=== PATIENT | male | born 1965 | race Two or more races ===

== ENCOUNTER 2024-10-24 17:46 | Inpatient (IN) | payer MEDICAID, SELFPAY ==
--- NOTE | 2024-10-24 15:04 | PC.SS ---
This SSD spoke with patient spouse Jen Barth via telephone, patient is FULL CODE WITH FULL TREATMENT. He is tenriism hoahaoism and will accept spiritual care visits from auricular therapist. Hearing is adequate with no device, vision is impaired wear glasses, he has partials that will stay home. This SSD to meet with Jen on Sunday.
[2024-10-24 17:39] LABS: Base Excess 10 (-3-3); HCO3 36 mEq/L (20-26); Inspired Oxygen, FIO2 28 %; O2 Saturation 55 % (91-98); PCO2 53 mmHg (32.0-48.0); pH, Arterial 7.44 (7.35-7.45)
[2024-10-24 17:41] LABS: Allen Test Performed/OK; Puncture Site Left Brachial
[2024-10-24 17:44] LABS: PO2 31 mmHg (83-108)
[2024-10-24 17:46] LABS: Basophils # (Auto) 0.1 Thou/mm3 (0.0-0.2); Basophils % (Auto) 1 % (0-2.5); Eosinophils # (Auto) 0.2 Thou/mm3 (0.0-0.5); Eosinophils % (Auto) 2 % (0-10); Hematocrit 35.5 % (41.0-53.0); Hemoglobin 11.7 g/dL (13.5-16.0); Immature Granulocytes Auto 0.02 Thou/mm3 (0.00-0.00); Lymphocytes # (Auto) 1.6 Thou/mm3 (1.0-4.8); Lymphocytes % (Auto) 21 % (10-50); Mean Corpuscular HGB Conc 33.0 g/dl (31.0-37.0); Mean Corpuscular Hemoglobin 29.7 pg (25.0-35.0); Mean Corpuscular Volume 90 fL (80-100); Monocytes # (Auto) 0.7 Thou/mm3 (0.0-0.8); Monocytes % (Auto) 9 % (0-12); Neutrophils # (Auto) 5.2 Thou/mm3 (1.8-7.7); Neutrophils % (Auto) 67 % (37-80); Nucleated Red Blood Cell # 0.00 Thou/mm3 (0.00-0.00); Nucleated Red Blood Cell % 0 /100 WBC (0); Platelet Count 389 Thou/mm3 (140-440); RDW Standard Deviation 45.1 fL (35.1-43.9); Red Blood Count 3.94 Miln/mm3 (4.50-5.90); White Blood Count 7.8 Thou/mm3 (3.8-10.6)
[2024-10-24 18:00] VITALS: BP 116/75; PULSE 80; RESP 28; TEMP 36.8; O2SAT 100
--- NOTE | 2024-10-24 18:00 | EKG_ITS ---
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
--- NOTE | 2024-10-24 18:00 | XR_ITS ---
Examination: AP chest single view Technique one AP portable semiupright chest single view Exam date and time: October 24, 2024 at 1759 hrs. Indications: Post tracheostomy placement Findings: Tracheostomy tube tip 6.6 cm above shannon Mild elevation left hemidiaphragm No aspiration pneumonia Moderate osteopenia Impression: Tracheostomy tube tip 6.6 cm above shannon
[2024-10-24 18:04] LABS: Albumin, Serum 3.8 gm/dL (3.4-4.8); Anion Gap 6 (7-16); BUN/Creatinine Ratio 20 Ratio (12-20); Blood Urea Nitrogen 14 mg/dL (9-23); Calcium 9.0 mg/dL (8.3-10.6); Calcium (Corrected) 9.2 mg/dL (8.5-10.1); Carbon Dioxide 33.1 mMol/L (20.0-31.0); Chloride 100 mMol/L (98-107); Creatinine (Component) 0.7 mg/dL (0.6-1.3); Glucose 132 mg/dL (74-106); Osmolality,Calculated 280 (275-295); Phosphorous 4.2 mg/dL (2.4-5.1); Potassium 3.9 mMol/L (3.4-5.1); Sodium 139 mMol/L (136-145); Thyroid Stimulating Hormone 0.65 uIU/mL (0.55-4.78); eGFR > 60 See Note
[2024-10-24 19:05] VITALS: PULSE 63; RESP 18; O2SAT 94
--- NOTE | 2024-10-24 19:55 | PC.ADMIT ---
Received resident from [facility] and admitted under Dr. Kita curtis. REsident arrived via gurney. Accompanied by ambulance crew. resident alert and oriented x2. able to follow simple commands. faroese is his first language. anable to make needs known. Complete assessment done . no skin issues noted skin bruising noted, discoloration to bilateral ankles. remains on blow by mist. saturation 98% stable vital signs. No distress noted upon arrival. resident denied pain or discomfort by nodding head. All new oirde
--- NOTE | 2024-10-24 19:59 | PC.ADMIT ---
Resident admitted to [facility] from [facility] arrived via gurney. alert and oriented x2. able to follow simple commands. presents weakness to left hemisphere. no major skin issues noted. other than bruises to arms and discoloration to bilateral ankles. placed on contact precautions according to report given by RN. carried out most of this pt order. hand off report given to Leticia BATEMAN.
[2024-10-24 20:15] VITALS: BP 117/66; PULSE 68; RESP 22; TEMP 36.6; O2SAT 97
--- NOTE | 2024-10-24 20:15 | PC.NURSE ---
RESIDENT ALERT, AWAKE, NO DISTRESS NOTED, DENIES PAIN. , SHEY AND SON, ABRAM AT THE BEDSIDE. NO QUESTIONS AT THIS TIME BY FAMILY.
--- NOTE | 2024-10-24 20:45 | PC.NURSE ---
DR. DAVALOS NOTIFIED OF LAB RESULTS. ORDERED TO REDRAW ABG IN THE MORNING(WAS A VENOUS DRAW PER MD). CBC, CMP REVIEWED WITH .
[2024-10-24] MEDS: SENNOSIDES 8.6 MG TABLET GT (21:00)
[2024-10-24 22:00] VITALS: BP 121/63; PULSE 60; RESP 17; TEMP 36.2
--- NOTE | 2024-10-24 22:30 | ESHP_ITS ---
Physical exam Physical Exam Vital signs: Temp Pulse Resp BP Pulse Ox O2 Del Method O2 Flow Rate 98.4 F 77 20 129/71 95 Blow-by 6 10/26/24 06:00 10/26/24 06:00 10/26/24 06:00 10/26/24 06:00 10/26/24 06:00 10/25/24 06:00 10/26/24 01:25 FiO2 28 10/26/24 01:25 Constitutional Constitutional: no acute distress and thin Comments: Pt bed bound with VSS and awake HEENT Exam Head: Present normocephalic and atraumatic ENT: Present mucous membranes moist, oropharynx clear, nares patent and external ear normal Neck Exam Comments: NAD Chest/Breast/Axilla Exam Comments: NAD Respiratory Exam Respiratory: Present chest non-tender, lungs clear, normal breath sounds and no resp distress Comments: Tracheostomy present and site clean Cardiovascular Exam Cardiovascular: Present RRR, S1 and S2 Abdominal Exam Abdominal: Present soft and normoactive bowel sounds Rectal Exam Comments: deferred Exam Comments: deferred Extremities Exam Extremities: Present pulses intact and normal capillary refill Comments: moves all extremities minimally, more his hands, Back/Spine/Pelvis Exam Comments: NAD Neurological Exam Neurological: Present alert Comments: bed bound with gen. weakness more pronounced in lower extremities L>R. Awake and alert and seems to recognize persons but not aware of place or time. Responds to simple commands with yes or no and appropreately. Incontinent of B & B Rehabilitation potential Diagnosis (1) Acute arterial ischemic stroke, vertebrobasilar, brainstem: Status: Chronic Qualifiers: Laterality: left Qualified Code(s): I63.212 - Cerebral infarction due to unspecified occlusion or stenosis of left vertebral artery; I63.22 - Cerebral infarction due to unspecified occlusion or stenosis of basilar artery (2) Seizures, generalized convulsive: Status: Chronic (3) Chronic respiratory failure: Status: Chronic Qualifiers: Respiratory failure complication: unspecified whether with hypoxia or hypercapnia Qualified Code(s): J96.10 - Chronic respiratory failure, unspecified whether with hypoxia or hypercapnia (4) Altered glucose metabolism due to diabetes: Status: Chronic (5) Encephalopathy: Status: Chronic (6) Decubital ulcer: Status: Chronic Assessment & Plan: healed in acute care and now on admission to sub/acute has blanchable redness over saccrum and monitored (7) G tube feedings: Status: Chronic (8) Tracheostomy in place: Status: Chronic Assessment & Plan Assessment: Pt seems to be fairly stable with all above diagnosis and with limited /guarded prognosis for recovery to independent living and needs all support. Family supportive Plan: Full support medical/nutritional and emotional towards maintaining some quality of life Prognosis Prognosis: guarded If patient not informed of condion, describe why: pt is not cognitively aware enough his condition, his limitations and the care involved Goals Dc home if pt improves some and stable and family in a position to provide care HPI History of Present Illness HPI: Pt a 59 yrs of age male admitted to DPS[facility] at [facility] for penitentiary care with diagnosis of : Acute arterial ischemic stroke, vertebrobasilar, brainstem, left ; with a Tracheostomy to blow by because of Chronic respiratory failure; Feeding G tube for dyspahagia and risk for aspiration; Decubitus over coccyx; Seizures generalzex; DM-II; Encephalopathy metabolic , improving; Left femoral vein DVT/ multiple subsegmental pulmonary emboli; hypothyroidism.
[2024-10-25] VITALS (10 sets, daily range): BP systolic 124–144; BP diastolic 70–78; PULSE 66–97; RESP 18–23; TEMP 36.4–38.3; O2SAT 93–99
[2024-10-25] MEDS: INSULIN REGULAR, HUMAN 100 UNIT/ML VIAL SC ×4 (00:08→17:42)
[2024-10-25] MEDS: IPRATROPIUM/ALBUTEROL 3 ML AMPUL.NEB INH ×2 (01:03→19:11)
[2024-10-25 07:02] LABS: Glucose,Fasting 147 mg/dL (74-106)
[2024-10-25 08:34] LABS: Base Excess 9 (-3-3); HCO3 34 mEq/L (20-26); Inspired Oxygen, FIO2 35 %; PCO2 50 mmHg (32.0-48.0); PO2 102 mmHg (83-108); pH, Arterial 7.45 (7.35-7.45)
[2024-10-25 08:36] LABS: O2 Saturation 97 % (91-98); Puncture Site Right Brachial
[2024-10-25 08:37] LABS: Allen Test Not Performed
[2024-10-25] MEDS: APIXABAN 5 MG TABLET PO ×2 (09:04→20:52)
[2024-10-25] MEDS: SENNOSIDES 8.6 MG TABLET GT ×2 (09:05→20:54)
[2024-10-25] MEDS: CHOLECALCIFEROL (VITAMIN D3) 25 MCG TABLET GT (09:05)
[2024-10-25] MEDS: ATORVASTATIN 40 MG TABLET GT (20:54)
--- NOTE | 2024-10-25 21:09 | PC.NURSE ---
Per day shift charge nurse resident had a rectal temp. of 100.2 F rectally, resident was cover up and fan was off at time, cooling measures performed, resident temp. rechecked 100.1F rectally, all vs taken, VS 138/78,101,24, 02sat 100% on 6L 28%, resident noted to be restless when family was not in room, resident also noted to be pulling at tubing, consent obtained by resident for bilateral mittens for pulling at life sustaining tubes, currently family is in to visit, made aware of fever, per 100.1F is not a true fever, new orders for one time tyl. for fever of 100.1F and if resident continues with fever tonight to collect CBC in morning, made aware of new orders, current sputum cultures pending.
[2024-10-25] MEDS: ACETAMINOPHEN 325 MG/10.15 ML 650 MG GT (21:11)
[2024-10-26] VITALS (8 sets, daily range): BP systolic 128–158; BP diastolic 63–78; PULSE 70–98; RESP 18–20; TEMP 36.9–37.1; O2SAT 95–99
[2024-10-26] MEDS: INSULIN REGULAR, HUMAN 100 UNIT/ML VIAL SC ×4 (00:15→17:34)
[2024-10-26] MEDS: IPRATROPIUM/ALBUTEROL 3 ML AMPUL.NEB INH ×4 (01:25→20:37)
[2024-10-26] MEDS: LEVOTHYROXINE 200 MCG TABLET GT (05:05)
[2024-10-26] MEDS: AMIODARONE 200 MG TABLET 400 MG GT (09:10)
[2024-10-26] MEDS: CLOPIDOGREL BISULFATE 75 MG TABLET GT (09:11)
[2024-10-26] MEDS: SENNOSIDES 8.6 MG TABLET GT ×2 (09:11→20:39)
[2024-10-26] MEDS: APIXABAN 5 MG TABLET PO ×2 (09:11→20:38)
[2024-10-26] MEDS: DEX/HYPRO/GLY ARTIFICAL TEARS 225 DROP/15 ML BTL BOTH EYES ×2 (09:11→20:39)
[2024-10-26] MEDS: CHOLECALCIFEROL (VITAMIN D3) 25 MCG TABLET GT (09:11)
--- NOTE | 2024-10-26 15:32 | PC.NURSE ---
late entry for 10/25/24- F/U ABG was drawn. RT had notified Dr East about the results, no new order made
[2024-10-26] MEDS: ATORVASTATIN 40 MG TABLET GT (20:39)
[2024-10-27] VITALS (9 sets, daily range): BP systolic 107–120; BP diastolic 63–79; PULSE 61–79; RESP 17–24; TEMP 36.2–36.8; O2SAT 93–99; BMI 26.4
[2024-10-27] MEDS: IPRATROPIUM/ALBUTEROL 3 ML AMPUL.NEB INH ×4 (00:03→18:49)
[2024-10-27] MEDS: INSULIN REGULAR, HUMAN 100 UNIT/ML VIAL SC ×2 (00:08→11:25)
[2024-10-27] MEDS: LEVOTHYROXINE 200 MCG TABLET GT (05:25)
[2024-10-27] MEDS: AMIODARONE 200 MG TABLET 400 MG GT (09:17)
[2024-10-27] MEDS: CHOLECALCIFEROL (VITAMIN D3) 25 MCG TABLET GT (09:19)
[2024-10-27] MEDS: DEX/HYPRO/GLY ARTIFICAL TEARS 225 DROP/15 ML BTL BOTH EYES ×2 (09:19→20:30)
[2024-10-27] MEDS: CLOPIDOGREL BISULFATE 75 MG TABLET GT (09:19)
[2024-10-27] MEDS: SENNOSIDES 8.6 MG TABLET GT ×2 (09:20→20:32)
[2024-10-27] MEDS: APIXABAN 5 MG TABLET PO (09:35)
--- NOTE | 2024-10-27 12:15 | PD.SAPROG ---
Progress Note - SubAcute DIAGNOSIS (1) Acute arterial ischemic stroke, vertebrobasilar, brainstem: Status: Chronic Qualifiers: Laterality: left Qualified Code(s): I63.212 - Cerebral infarction due to unspecified occlusion or stenosis of left vertebral artery; I63.22 - Cerebral infarction due to unspecified occlusion or stenosis of basilar artery (2) Seizures, generalized convulsive: Status: Chronic (3) Chronic respiratory failure: Status: Chronic Qualifiers: Respiratory failure complication: unspecified whether with hypoxia or hypercapnia Qualified Code(s): J96.10 - Chronic respiratory failure, unspecified whether with hypoxia or hypercapnia (4) Altered glucose metabolism due to diabetes: Status: Chronic (5) Encephalopathy: Status: Chronic (6) Decubital ulcer: Status: Chronic (7) G tube feedings: Status: Chronic (8) Tracheostomy in place: Status: Chronic OBJECTIVE Most recent vital signs: Last Vital Signs Temp 98 F 10/31/24 11:42 Pulse 65 10/31/24 12:10 Resp 18 10/31/24 12:10 BP 120/69 10/31/24 11:42 Pulse Ox 98 10/31/24 12:10 O2 Del Method Blow-by 10/30/24 17:51 O2 Flow Rate 6 10/31/24 12:10 FiO2 28 10/31/24 12:10 Speech:: mouths words (sometimes) Answers questions:: sometimes (mostly by gestures) Respiratory:: lungs clear Cardiovascular: RRR Abdomen: soft Tracheostomy:: to blow by Feeding per:: G tube ASSESSMENT & PLAN Assessment: Pt seems to be fairly stable with all above diagnosis and with limited /guarded prognosis for recovery to independent living and needs all support. Family supportive Plan: Full support medical/nutritional and emotional towards maintaining some quality of life
--- NOTE | 2024-10-27 17:33 | PC.NURSE ---
Reviewed sputum final culture with . stated after reviewing results is colonized. resident has no signs of elevated temperature. all VS are stable. Will continue to monitor.
[2024-10-27] MEDS: ATORVASTATIN 40 MG TABLET GT (20:30)
[2024-10-28] VITALS (9 sets, daily range): BP systolic 104–141; BP diastolic 55–77; PULSE 55–79; RESP 17–20; TEMP 36.2–36.6; O2SAT 96–100
[2024-10-28] MEDS: IPRATROPIUM/ALBUTEROL 3 ML AMPUL.NEB INH ×4 (00:19→19:41)
[2024-10-28] MEDS: LEVOTHYROXINE 200 MCG TABLET GT (05:20)
[2024-10-28] MEDS: INSULIN REGULAR, HUMAN 100 UNIT/ML VIAL SC ×2 (05:37→11:37)
[2024-10-28] MEDS: CLOPIDOGREL BISULFATE 75 MG TABLET GT (08:37)
[2024-10-28] MEDS: CHOLECALCIFEROL (VITAMIN D3) 25 MCG TABLET GT (08:37)
[2024-10-28] MEDS: APIXABAN 5 MG TABLET PO ×2 (08:37→20:35)
[2024-10-28] MEDS: SENNOSIDES 8.6 MG TABLET GT ×2 (08:37→20:36)
[2024-10-28] MEDS: DEX/HYPRO/GLY ARTIFICAL TEARS 225 DROP/15 ML BTL BOTH EYES ×2 (08:37→20:35)
--- NOTE | 2024-10-28 12:52 | PC.SS ---
This SSD met with resident RP and son, resident is all smiles and appears to be in good spirits in the company of his family. Resident is seen engaging with his son. Resident appears to be adjusting well, mood has been adequate, states resident has history of anxiety due to family problems. This SSD will make daily contact with resident and will monitor for changes in mood and behavior.
[2024-10-28] MEDS: ATORVASTATIN 40 MG TABLET GT (20:35)
[2024-10-29] VITALS (7 sets, daily range): BP systolic 126–132; BP diastolic 62–77; PULSE 66–85; RESP 18–20; TEMP 37–37.2; O2SAT 20–99
[2024-10-29] MEDS: IPRATROPIUM/ALBUTEROL 3 ML AMPUL.NEB INH ×4 (00:59→18:00)
[2024-10-29] MEDS: INSULIN REGULAR, HUMAN 100 UNIT/ML VIAL SC ×2 (05:23→11:19)
[2024-10-29] MEDS: LEVOTHYROXINE 200 MCG TABLET GT (05:26)
[2024-10-29] MEDS: AMIODARONE 200 MG TABLET 400 MG GT (08:48)
[2024-10-29] MEDS: APIXABAN 5 MG TABLET PO ×2 (08:49→20:47)
[2024-10-29] MEDS: CHOLECALCIFEROL (VITAMIN D3) 25 MCG TABLET GT (08:49)
[2024-10-29] MEDS: DEX/HYPRO/GLY ARTIFICAL TEARS 225 DROP/15 ML BTL BOTH EYES ×2 (08:50→20:47)
[2024-10-29] MEDS: SENNOSIDES 8.6 MG TABLET GT ×2 (08:50→20:48)
[2024-10-29] MEDS: CLOPIDOGREL BISULFATE 75 MG TABLET GT (08:50)
--- NOTE | 2024-10-29 12:58 | PC.SS ---
Resident is yarsanism catholic, family will accept spiritual care visits from fruit ii farmworker. This SSD to inform fruit ii farmworker.
[2024-10-29] MEDS: ATORVASTATIN 40 MG TABLET GT (20:47)
[2024-10-30] VITALS (9 sets, daily range): BP systolic 107–130; BP diastolic 62–73; PULSE 60–84; RESP 18; TEMP 36.4–36.6; O2SAT 94–100
[2024-10-30] MEDS: IPRATROPIUM/ALBUTEROL 3 ML AMPUL.NEB INH ×4 (00:05→19:00)
[2024-10-30] MEDS: INSULIN REGULAR, HUMAN 100 UNIT/ML VIAL SC ×3 (05:22→17:09)
[2024-10-30] MEDS: LEVOTHYROXINE 200 MCG TABLET GT (05:27)
[2024-10-30 06:44] LABS: Levetiracetam (Keppra)* 20.0 mcg/mL (6.0-46.0)
[2024-10-30] MEDS: AMIODARONE 200 MG TABLET 400 MG GT (08:52)
[2024-10-30] MEDS: APIXABAN 5 MG TABLET PO ×2 (08:53→21:14)
[2024-10-30] MEDS: DEX/HYPRO/GLY ARTIFICAL TEARS 225 DROP/15 ML BTL BOTH EYES ×2 (08:54→21:15)
[2024-10-30] MEDS: CLOPIDOGREL BISULFATE 75 MG TABLET GT (08:54)
[2024-10-30] MEDS: SENNOSIDES 8.6 MG TABLET GT ×2 (08:54→21:15)
[2024-10-30] MEDS: CHOLECALCIFEROL (VITAMIN D3) 25 MCG TABLET GT (08:54)
[2024-10-30] MEDS: ATORVASTATIN 40 MG TABLET GT (21:15)
[2024-10-31] VITALS (9 sets, daily range): BP systolic 114–121; BP diastolic 63–71; PULSE 53–85; RESP 16–20; TEMP 36.3–36.6; O2SAT 95–99; BMI 208838.7; BMI 12.0
[2024-10-31] MEDS: IPRATROPIUM/ALBUTEROL 3 ML AMPUL.NEB INH ×4 (00:05→18:20)
--- NOTE | 2024-10-31 05:48 | PC.NURSE ---
At 1845 am nurse reported that resident had not voided since 1100. Upon evaluation of resident, resident noted with abdomen distended and tender to touch upon palpitation. Charge nurse notified and new order received to perform and in and out cath. In and out cath done with immediate return of clear yellow urine 760 cc. Resident tolerated procedure well, when asked if he felt relief, resident nodded yes.
[2024-10-31] MEDS: LEVOTHYROXINE 200 MCG TABLET GT (06:16)
[2024-10-31] MEDS: INSULIN REGULAR, HUMAN 100 UNIT/ML VIAL SC ×2 (06:16→11:34)
[2024-10-31] MEDS: SENNOSIDES 8.6 MG TABLET GT ×2 (08:34→21:07)
[2024-10-31] MEDS: AMIODARONE 200 MG TABLET 400 MG GT (08:34)
[2024-10-31] MEDS: CHOLECALCIFEROL (VITAMIN D3) 25 MCG TABLET GT (08:34)
[2024-10-31] MEDS: DEX/HYPRO/GLY ARTIFICAL TEARS 225 DROP/15 ML BTL BOTH EYES ×2 (08:34→21:07)
[2024-10-31] MEDS: APIXABAN 5 MG TABLET PO ×2 (08:34→21:06)
[2024-10-31] MEDS: CLOPIDOGREL BISULFATE 75 MG TABLET GT (08:34)
--- NOTE | 2024-10-31 13:52 | PC.PT ---
PT eval completed. Patient will be seen for Physical therapy 1x/wk and RNA program for strengthening ex. Pls see PT eval.
--- NOTE | 2024-10-31 15:32 | PC.NURSE ---
Resident on multiple blood thinners Eliquis and Plavix. Called Dr Banerjee and made aware of the consult
--- NOTE | 2024-10-31 17:15 | PC.NURSE ---
Seen by Dr East,no new orders made.
--- NOTE | 2024-10-31 17:50 | PD.SAPROG ---
Progress Note - SubAcute DIAGNOSIS (1) Acute arterial ischemic stroke, vertebrobasilar, brainstem: Status: Chronic Qualifiers: Laterality: left Qualified Code(s): I63.212 - Cerebral infarction due to unspecified occlusion or stenosis of left vertebral artery; I63.22 - Cerebral infarction due to unspecified occlusion or stenosis of basilar artery (2) Seizures, generalized convulsive: Status: Chronic (3) Chronic respiratory failure: Status: Chronic Qualifiers: Respiratory failure complication: unspecified whether with hypoxia or hypercapnia Qualified Code(s): J96.10 - Chronic respiratory failure, unspecified whether with hypoxia or hypercapnia (4) Altered glucose metabolism due to diabetes: Status: Chronic (5) Encephalopathy: Status: Chronic (6) Decubital ulcer: Status: Chronic (7) G tube feedings: Status: Chronic (8) Tracheostomy in place: Status: Chronic SUBJECTIVE Fever:: none Shortness of Breath:: none Pain:: none OBJECTIVE Most recent vital signs: Last Vital Signs Temp 98 F 10/31/24 11:42 Pulse 65 10/31/24 12:10 Resp 18 10/31/24 12:10 BP 120/69 10/31/24 11:42 Pulse Ox 98 10/31/24 12:10 O2 Del Method Blow-by 10/30/24 17:51 O2 Flow Rate 6 10/31/24 12:10 FiO2 28 10/31/24 12:10 Speech:: mouths words (sometimes) Answers questions:: sometimes (mostly by gestures) Respiratory:: lungs clear Cardiovascular: RRR Abdomen: soft Tracheostomy:: to blow by Feeding per:: G tube ASSESSMENT & PLAN Assessment: Pt seems to be fairly stable with all above diagnosis and with limited /guarded prognosis for recovery to independent living and needs all support. Family supportive Plan: Full support medical/nutritional and emotional towards maintaining some quality of life
[2024-10-31] MEDS: MAGNESIUM HYDROXIDE 30 ML ORAL SUSP ML GT (21:07)
[2024-10-31] MEDS: ATORVASTATIN 40 MG TABLET GT (21:07)
[2024-11-01] VITALS (7 sets, daily range): BP systolic 114–148; BP diastolic 64–72; PULSE 67–93; RESP 18–20; TEMP 36.3–36.8; O2SAT 95–99
[2024-11-01] MEDS: IPRATROPIUM/ALBUTEROL 3 ML AMPUL.NEB INH ×4 (00:05→18:10)
[2024-11-01] MEDS: LEVOTHYROXINE 200 MCG TABLET GT (05:02)
[2024-11-01] MEDS: ACETAMINOPHEN 325 MG/10.15 ML 650 MG GT (05:05)
[2024-11-01] MEDS: CLOPIDOGREL BISULFATE 75 MG TABLET GT (08:41)
[2024-11-01] MEDS: APIXABAN 5 MG TABLET PO (08:41)
[2024-11-01] MEDS: CHOLECALCIFEROL (VITAMIN D3) 25 MCG TABLET GT (08:41)
[2024-11-01] MEDS: DEX/HYPRO/GLY ARTIFICAL TEARS 225 DROP/15 ML BTL BOTH EYES ×2 (08:41→20:55)
[2024-11-01] MEDS: AMIODARONE 200 MG TABLET 400 MG GT (08:41)
[2024-11-01] MEDS: SENNOSIDES 8.6 MG TABLET GT ×2 (08:42→20:55)
[2024-11-01] MEDS: INSULIN REGULAR, HUMAN 100 UNIT/ML VIAL SC (12:06)
[2024-11-01] MEDS: APIXABAN 5 MG TABLET GT (20:53)
[2024-11-01] MEDS: ATORVASTATIN 40 MG TABLET GT (20:55)
[2024-11-02] VITALS (7 sets, daily range): BP systolic 110–123; BP diastolic 50–73; PULSE 61–86; RESP 18–20; TEMP 36.6–36.8; O2SAT 96–99
[2024-11-02] MEDS: IPRATROPIUM/ALBUTEROL 3 ML AMPUL.NEB INH ×4 (00:05→17:40)
[2024-11-02] MEDS: LEVOTHYROXINE 200 MCG TABLET GT (05:22)
--- NOTE | 2024-11-02 06:47 | PC.NURSE ---
Resident noted with no void since 2300. Bladder scan done with 503mls noted. Charge nurse notified with order obtained for an in and out cath. In and out cath performed requiring cath to be advanced further into bladder to get urine return. Urine noted to trickle out, however upon palpation of bladder urine was noted to flow consistently with 500mls of cloudy yellow urine obtained. Charge nurse notified.
[2024-11-02] MEDS: CHOLECALCIFEROL (VITAMIN D3) 25 MCG TABLET GT (08:17)
[2024-11-02] MEDS: CLOPIDOGREL BISULFATE 75 MG TABLET GT (08:17)
[2024-11-02] MEDS: AMIODARONE 200 MG TABLET 400 MG GT (08:17)
[2024-11-02] MEDS: APIXABAN 5 MG TABLET GT ×2 (08:17→20:38)
[2024-11-02] MEDS: SENNOSIDES 8.6 MG TABLET GT ×2 (08:18→20:39)
[2024-11-02] MEDS: DEX/HYPRO/GLY ARTIFICAL TEARS 225 DROP/15 ML BTL BOTH EYES ×2 (08:18→20:38)
[2024-11-02] MEDS: INSULIN REGULAR, HUMAN 100 UNIT/ML VIAL SC ×2 (11:45→17:32)
--- NOTE | 2024-11-02 16:28 | PC.NURSE ---
Resident had not been able to void since 1400. Charge nurse informed, bladder scan preformed and noted to have 1,160 mls. Orders given for indwelling catheterization. No. 16 Croatian with 10ml lyon placed and immediate flow of clear yellow urine flowing well without any issues. Nurse observed patient during procedure and noticed patient grimacing offered PRN but resident refused. at bedside to provide emotional support.
--- NOTE | 2024-11-02 16:46 | PC.NURSE ---
Communicable Disease Specialist was informed by nurse Aleman at around 1500. regarding resident not being able to void since this am at 0630. Nurse Aleman bladder scan resident noting > 500 ml if urine in the bladder. Called doctor and per protocol this is the 3rd time (in 48hours) resident gets scanned and IN and OUT catherization x2. Third time a lyon catheter was inserted as per MD order due to urinary retention. Obtained 800ml yellow clear urine then clamp lyon. Will continue to monitor resident. According to AUTO SEAT COVER INSTALLER report resident showed some discomfort during procedure. No complications were noted thereafter.
[2024-11-02] MEDS: ATORVASTATIN 40 MG TABLET GT (20:38)
--- NOTE | 2024-11-02 23:07 | PD.NEUROCONS ---
History of Present Illness Data of Consult Requesting Physician: Rosalino East MD Primary Care Provider: Physician No Primary/Family Consult Narrative cc:: cc: Rosalino East MD Meds Home Medications and Allergies Allergies Allergy/AdvReac Type Severity Reaction Status Date / Time No Known Allergies Allergy Verified 10/24/24 19:31 Exam - Neurology Vital Signs Temp Pulse Resp BP Pulse Ox O2 Del Method O2 Flow Rate 98.2 F 75 18 113/50 L 98 Blow-by 6 11/02/24 16:45 11/02/24 16:45 11/02/24 16:45 11/02/24 16:45 11/02/24 16:45 11/02/24 16:45 11/02/24 16:45 FiO2 28 11/02/24 16:45 Results Labs 10/24/24 17:38 10/24/24 17:38 ABG Interpretation ABG results: 10/24/24 10/25/24 17:31 08:26 ABG pH 7.44 7.45 ABG pCO2 53 H 50 H ABG pO2 31 L* 102 D ABG HCO3 36 H 34 H ABG O2 Saturation 55 L 97 ABG Base Excess 10 H 9 H Assessment & Plan Assessment and plan (1) Acute arterial ischemic stroke, vertebrobasilar, brainstem: Qualifiers: Laterality: left Qualified Code(s): I63.212 - Cerebral infarction due to unspecified occlusion or stenosis of left vertebral artery; I63.22 - Cerebral infarction due to unspecified occlusion or stenosis of basilar artery Status: Chronic Assessment and plan: Continue with range of motion exercises for the left hemibody Continue with the G-tube feeding as he has functional dysphagia Follow-up with the CT and then decide about continuation of anticoagulant and Plavix (2) Seizures, generalized convulsive: Status: Chronic Assessment and plan: Continue with Keppra (3) Chronic respiratory failure: Qualifiers: Respiratory failure complication: unspecified whether with hypoxia or hypercapnia Qualified Code(s): J96.10 - Chronic respiratory failure, unspecified whether with hypoxia or hypercapnia Status: Chronic Assessment and plan: Status post tracheostomy, stable
[2024-11-03] VITALS (10 sets, daily range): BP systolic 120–135; BP diastolic 63–72; PULSE 68–87; RESP 17–22; TEMP 36.6–36.7; O2SAT 96–98
[2024-11-03] MEDS: IPRATROPIUM/ALBUTEROL 3 ML AMPUL.NEB INH ×5 (00:46→23:35)
[2024-11-03] MEDS: LEVOTHYROXINE 200 MCG TABLET GT (05:38)
[2024-11-03] MEDS: INSULIN REGULAR, HUMAN 100 UNIT/ML VIAL SC ×3 (05:39→17:15)
[2024-11-03] MEDS: AMIODARONE 200 MG TABLET 400 MG GT (09:09)
[2024-11-03] MEDS: DEX/HYPRO/GLY ARTIFICAL TEARS 225 DROP/15 ML BTL BOTH EYES ×2 (09:10→21:14)
[2024-11-03] MEDS: CHOLECALCIFEROL (VITAMIN D3) 25 MCG TABLET GT (09:10)
[2024-11-03] MEDS: APIXABAN 5 MG TABLET GT ×2 (09:10→21:11)
[2024-11-03] MEDS: CLOPIDOGREL BISULFATE 75 MG TABLET GT (09:10)
[2024-11-03] MEDS: SENNOSIDES 8.6 MG TABLET GT ×2 (09:11→21:14)
--- NOTE | 2024-11-03 13:57 | PC.NURSE ---
Resident with an order for CT head without contrast, needs prior authorization. Billing made aware
[2024-11-03] MEDS: ATORVASTATIN 40 MG TABLET GT (21:13)
[2024-11-03] MEDS: MAGNESIUM HYDROXIDE 30 ML ORAL SUSP ML GT (21:34)
[2024-11-04] VITALS (7 sets, daily range): BP systolic 118–123; BP diastolic 58–69; PULSE 67–74; RESP 18–21; TEMP 36.1–36.7; O2SAT 97–98; BMI 20.7
[2024-11-04] MEDS: INSULIN REGULAR, HUMAN 100 UNIT/ML VIAL SC ×2 (00:12→18:03)
[2024-11-04] MEDS: IPRATROPIUM/ALBUTEROL 3 ML AMPUL.NEB INH ×3 (06:14→18:25)
[2024-11-04] MEDS: AMIODARONE 200 MG TABLET 400 MG GT (08:31)
[2024-11-04] MEDS: APIXABAN 5 MG TABLET GT ×2 (08:32→20:27)
[2024-11-04] MEDS: CHOLECALCIFEROL (VITAMIN D3) 25 MCG TABLET GT (08:32)
[2024-11-04] MEDS: DEX/HYPRO/GLY ARTIFICAL TEARS 225 DROP/15 ML BTL BOTH EYES ×2 (08:33→20:28)
[2024-11-04] MEDS: SENNOSIDES 8.6 MG TABLET GT ×2 (08:33→20:28)
[2024-11-04] MEDS: CLOPIDOGREL BISULFATE 75 MG TABLET GT (08:33)
[2024-11-04] MEDS: BISACODYL 10 MG SUPP.RECT PR (14:00)
--- NOTE | 2024-11-04 19:57 | PD.SAPROG ---
Progress Note - SubAcute DIAGNOSIS (1) Acute arterial ischemic stroke, vertebrobasilar, brainstem: Status: Chronic Qualifiers: Laterality: left Qualified Code(s): I63.212 - Cerebral infarction due to unspecified occlusion or stenosis of left vertebral artery; I63.22 - Cerebral infarction due to unspecified occlusion or stenosis of basilar artery (2) Seizures, generalized convulsive: Status: Chronic (3) Chronic respiratory failure: Status: Chronic Qualifiers: Respiratory failure complication: unspecified whether with hypoxia or hypercapnia Qualified Code(s): J96.10 - Chronic respiratory failure, unspecified whether with hypoxia or hypercapnia (4) Altered glucose metabolism due to diabetes: Status: Chronic (5) Encephalopathy: Status: Chronic (6) Decubital ulcer: Status: Chronic (7) G tube feedings: Status: Chronic (8) Tracheostomy in place: Status: Chronic SUBJECTIVE Fever:: none Shortness of Breath:: none Pain:: none OBJECTIVE Most recent vital signs: Last Vital Signs Temp 98.0 F 11/04/24 16:45 Pulse 70 11/04/24 16:45 Resp 21 H 11/04/24 16:45 BP 123/68 11/04/24 16:45 Pulse Ox 98 11/04/24 17:27 O2 Del Method Blow-by 11/04/24 11:11 O2 Flow Rate 6 11/04/24 17:27 FiO2 28 11/04/24 17:27 Speech:: mouths words (sometimes) Answers questions:: sometimes (mostly by gestures) Respiratory:: lungs clear Cardiovascular: RRR Abdomen: soft Tracheostomy:: to blow by Feeding per:: G tube ASSESSMENT & PLAN Assessment: Pt seems to be fairly stable with all above diagnosis and with limited /guarded prognosis for recovery to independent living and needs all support. Family supportive Denies any pain. VSS Plan: Full support medical/nutritional and emotional towards maintaining some quality of life
[2024-11-04] MEDS: ATORVASTATIN 40 MG TABLET GT (20:28)
[2024-11-05] VITALS (9 sets, daily range): BP systolic 118–130; BP diastolic 64–77; PULSE 50–72; RESP 18–22; TEMP 36.1–36.8; O2SAT 96–99
[2024-11-05] MEDS: IPRATROPIUM/ALBUTEROL 3 ML AMPUL.NEB INH ×4 (00:09→20:20)
[2024-11-05] MEDS: INSULIN REGULAR, HUMAN 100 UNIT/ML VIAL SC ×3 (05:45→17:29)
[2024-11-05] MEDS: LEVOTHYROXINE 200 MCG TABLET GT (05:46)
[2024-11-05] MEDS: AMIODARONE 200 MG TABLET 400 MG GT (09:07)
[2024-11-05] MEDS: CHOLECALCIFEROL (VITAMIN D3) 25 MCG TABLET GT (09:11)
[2024-11-05] MEDS: CLOPIDOGREL BISULFATE 75 MG TABLET GT (09:11)
[2024-11-05] MEDS: APIXABAN 5 MG TABLET GT ×2 (09:11→21:09)
[2024-11-05] MEDS: DEX/HYPRO/GLY ARTIFICAL TEARS 225 DROP/15 ML BTL BOTH EYES ×2 (09:18→21:09)
[2024-11-05] MEDS: SENNOSIDES 8.6 MG TABLET GT ×2 (09:19→21:11)
[2024-11-05] MEDS: ATORVASTATIN 40 MG TABLET GT (21:09)
[2024-11-05] MEDS: ACETAMINOPHEN 325 MG TABLET 650 MG GT (21:10)
[2024-11-06] VITALS (9 sets, daily range): BP systolic 121–132; BP diastolic 64–76; PULSE 62–85; RESP 16–20; TEMP 36.4–36.6; O2SAT 95–99
[2024-11-06] MEDS: IPRATROPIUM/ALBUTEROL 3 ML AMPUL.NEB INH ×3 (00:45→13:10)
[2024-11-06] MEDS: LEVOTHYROXINE 200 MCG TABLET GT (05:14)
[2024-11-06] MEDS: AMIODARONE 200 MG TABLET 400 MG GT (08:54)
[2024-11-06] MEDS: DEX/HYPRO/GLY ARTIFICAL TEARS 225 DROP/15 ML BTL BOTH EYES ×2 (08:55→20:35)
[2024-11-06] MEDS: CHOLECALCIFEROL (VITAMIN D3) 25 MCG TABLET GT (08:55)
[2024-11-06] MEDS: APIXABAN 5 MG TABLET GT ×2 (08:55→20:34)
[2024-11-06] MEDS: CLOPIDOGREL BISULFATE 75 MG TABLET GT (08:55)
[2024-11-06] MEDS: SENNOSIDES 8.6 MG TABLET GT ×2 (08:56→20:35)
[2024-11-06] MEDS: INSULIN REGULAR, HUMAN 100 UNIT/ML VIAL SC ×2 (11:03→23:34)
--- NOTE | 2024-11-06 15:10 | PC.SS ---
This SSD spoke with resident and son regarding plans for DC. Both said they would like to take him home once he meets goals. Resident son said [facility] and was capped during his time there. Family has requested for resident to be evaluated by PT and ST, they said at [facility] resident was sitting at edge of bed and would like resident to be evaluated to the the same here. Family would also like resident to be up in Farnaz chair and in activities daily. This SSD will make daily contact to ensure for smooth transition and assure resident is getting out of bed and attending activities. Charge nurse made aware.
[2024-11-06] MEDS: ATORVASTATIN 40 MG TABLET GT (20:35)
[2024-11-07] VITALS (8 sets, daily range): BP systolic 108–118; BP diastolic 65–68; PULSE 52–83; RESP 16–20; TEMP 36–36.8; O2SAT 97–99; BMI 12.0
[2024-11-07] MEDS: IPRATROPIUM/ALBUTEROL 3 ML AMPUL.NEB INH ×4 (01:30→19:50)
[2024-11-07] MEDS: LEVOTHYROXINE 200 MCG TABLET GT (05:20)
[2024-11-07] MEDS: INSULIN REGULAR, HUMAN 100 UNIT/ML VIAL SC ×3 (05:43→17:46)
[2024-11-07] MEDS: APIXABAN 5 MG TABLET GT ×2 (08:45→20:44)
[2024-11-07] MEDS: AMIODARONE 200 MG TABLET 400 MG GT (08:45)
[2024-11-07] MEDS: CLOPIDOGREL BISULFATE 75 MG TABLET GT (08:46)
[2024-11-07] MEDS: CHOLECALCIFEROL (VITAMIN D3) 25 MCG TABLET GT (08:46)
[2024-11-07] MEDS: DEX/HYPRO/GLY ARTIFICAL TEARS 225 DROP/15 ML BTL BOTH EYES ×2 (08:46→20:45)
[2024-11-07] MEDS: SENNOSIDES 8.6 MG TABLET GT ×2 (08:47→20:45)
--- NOTE | 2024-11-07 16:48 | PD.SAPROG ---
Progress Note - SubAcute DIAGNOSIS (1) Acute arterial ischemic stroke, vertebrobasilar, brainstem: Status: Chronic Qualifiers: Laterality: left Qualified Code(s): I63.212 - Cerebral infarction due to unspecified occlusion or stenosis of left vertebral artery; I63.22 - Cerebral infarction due to unspecified occlusion or stenosis of basilar artery (2) Seizures, generalized convulsive: Status: Chronic (3) Chronic respiratory failure: Status: Chronic Qualifiers: Respiratory failure complication: unspecified whether with hypoxia or hypercapnia Qualified Code(s): J96.10 - Chronic respiratory failure, unspecified whether with hypoxia or hypercapnia (4) Altered glucose metabolism due to diabetes: Status: Chronic (5) Encephalopathy: Status: Chronic (6) Decubital ulcer: Status: Chronic (7) G tube feedings: Status: Chronic (8) Tracheostomy in place: Status: Chronic SUBJECTIVE Fever:: none Shortness of Breath:: none Pain:: none OBJECTIVE Most recent vital signs: Last Vital Signs Temp 96.8 F 11/07/24 11:38 Pulse 63 11/07/24 13:15 Resp 20 11/07/24 13:15 BP 108/67 11/07/24 11:38 Pulse Ox 99 11/07/24 13:15 O2 Del Method Blow-by 11/06/24 16:44 O2 Flow Rate 6 11/07/24 13:15 FiO2 28 11/07/24 13:15 Speech:: mouths words (sometimes) Answers questions:: sometimes (mostly by gestures) Respiratory:: lungs clear Cardiovascular: RRR Abdomen: soft Tracheostomy:: to blow by Feeding per:: G tube ASSESSMENT & PLAN Assessment: Pt seems to be fairly stable with all above diagnosis and with limited /guarded prognosis for recovery to independent living and needs all support. Family supportive Denies any pain. VSS Plan: Full support medical/nutritional and emotional towards maintaining some quality of life
[2024-11-07] MEDS: ATORVASTATIN 40 MG TABLET GT (20:45)
[2024-11-08] VITALS (9 sets, daily range): BP systolic 104–129; BP diastolic 60–76; PULSE 60–80; RESP 16–20; TEMP 36.5–36.8; O2SAT 96–99
[2024-11-08] MEDS: IPRATROPIUM/ALBUTEROL 3 ML AMPUL.NEB INH ×4 (01:20→19:55)
[2024-11-08] MEDS: LEVOTHYROXINE 200 MCG TABLET GT (05:57)
[2024-11-08] MEDS: INSULIN REGULAR, HUMAN 100 UNIT/ML VIAL SC ×3 (05:57→17:00)
[2024-11-08] MEDS: AMIODARONE 200 MG TABLET 400 MG GT (08:05)
[2024-11-08] MEDS: DEX/HYPRO/GLY ARTIFICAL TEARS 225 DROP/15 ML BTL BOTH EYES ×2 (08:06→20:37)
[2024-11-08] MEDS: SENNOSIDES 8.6 MG TABLET GT ×2 (08:06→20:37)
[2024-11-08] MEDS: CLOPIDOGREL BISULFATE 75 MG TABLET GT (08:06)
[2024-11-08] MEDS: CHOLECALCIFEROL (VITAMIN D3) 25 MCG TABLET GT (08:06)
[2024-11-08] MEDS: APIXABAN 5 MG TABLET GT ×2 (08:06→20:37)
[2024-11-08] MEDS: MAGNESIUM HYDROXIDE 30 ML ORAL SUSP ML GT (13:29)
[2024-11-08] MEDS: ATORVASTATIN 40 MG TABLET GT (20:37)
[2024-11-09] VITALS (9 sets, daily range): BP systolic 115–128; BP diastolic 67–71; PULSE 60–75; RESP 18–25; TEMP 36.3–36.9; O2SAT 96–99
[2024-11-09] MEDS: IPRATROPIUM/ALBUTEROL 3 ML AMPUL.NEB INH ×4 (00:46→19:40)
[2024-11-09] MEDS: BISACODYL 10 MG SUPP.RECT PR (03:00)
[2024-11-09] MEDS: LEVOTHYROXINE 200 MCG TABLET GT (05:25)
[2024-11-09] MEDS: AMIODARONE 200 MG TABLET 400 MG GT (08:52)
[2024-11-09] MEDS: APIXABAN 5 MG TABLET GT ×2 (08:53→21:08)
[2024-11-09] MEDS: DEX/HYPRO/GLY ARTIFICAL TEARS 225 DROP/15 ML BTL BOTH EYES ×2 (08:54→21:08)
[2024-11-09] MEDS: SENNOSIDES 8.6 MG TABLET GT ×2 (08:54→21:09)
[2024-11-09] MEDS: CHOLECALCIFEROL (VITAMIN D3) 25 MCG TABLET GT (08:54)
[2024-11-09] MEDS: CLOPIDOGREL BISULFATE 75 MG TABLET GT (08:54)
[2024-11-09] MEDS: INSULIN REGULAR, HUMAN 100 UNIT/ML VIAL SC ×2 (11:35→17:10)
[2024-11-09] MEDS: ATORVASTATIN 40 MG TABLET GT (21:08)
[2024-11-10] VITALS (9 sets, daily range): BP systolic 113–152; BP diastolic 60–79; PULSE 66–87; RESP 16–22; TEMP 36.6–37.9; O2SAT 92–100
[2024-11-10] MEDS: IPRATROPIUM/ALBUTEROL 3 ML AMPUL.NEB INH ×4 (00:18→20:35)
[2024-11-10] MEDS: LEVOTHYROXINE 200 MCG TABLET GT (05:28)
[2024-11-10] MEDS: CHOLECALCIFEROL (VITAMIN D3) 25 MCG TABLET GT (08:10)
[2024-11-10] MEDS: DEX/HYPRO/GLY ARTIFICAL TEARS 225 DROP/15 ML BTL BOTH EYES ×2 (08:10→20:28)
[2024-11-10] MEDS: APIXABAN 5 MG TABLET GT ×2 (08:10→20:28)
[2024-11-10] MEDS: CLOPIDOGREL BISULFATE 75 MG TABLET GT (08:10)
[2024-11-10] MEDS: SENNOSIDES 8.6 MG TABLET GT ×2 (08:10→20:29)
[2024-11-10] MEDS: AMIODARONE 200 MG TABLET 400 MG GT (08:10)
[2024-11-10] MEDS: INSULIN REGULAR, HUMAN 100 UNIT/ML VIAL SC (11:52)
[2024-11-10] MEDS: ACETAMINOPHEN 325 MG TABLET 650 MG GT ×2 (12:51→20:29)
--- NOTE | 2024-11-10 13:13 | PC.NURSE ---
Resident's prior authorization for CT of head w/o contrast has been approved, resident scheduled on 11/13/24 at 11:[address]
[2024-11-10] MEDS: ATORVASTATIN 40 MG TABLET GT (20:28)
[2024-11-11] VITALS (11 sets, daily range): BP systolic 112–136; BP diastolic 64–75; PULSE 56–91; RESP 16–22; TEMP 36.3–37; O2SAT 93–100
[2024-11-11] MEDS: IPRATROPIUM/ALBUTEROL 3 ML AMPUL.NEB INH ×4 (00:44→19:00)
[2024-11-11] MEDS: LEVOTHYROXINE 200 MCG TABLET GT (05:21)
[2024-11-11] MEDS: INSULIN REGULAR, HUMAN 100 UNIT/ML VIAL SC ×2 (05:21→13:31)
[2024-11-11] MEDS: AMIODARONE 200 MG TABLET 400 MG GT (08:08)
[2024-11-11] MEDS: SENNOSIDES 8.6 MG TABLET GT ×2 (08:09→21:19)
[2024-11-11] MEDS: DEX/HYPRO/GLY ARTIFICAL TEARS 225 DROP/15 ML BTL BOTH EYES ×2 (08:09→21:19)
[2024-11-11] MEDS: CHOLECALCIFEROL (VITAMIN D3) 25 MCG TABLET GT (08:09)
[2024-11-11] MEDS: APIXABAN 5 MG TABLET GT ×2 (08:09→21:19)
[2024-11-11] MEDS: CLOPIDOGREL BISULFATE 75 MG TABLET GT (08:09)
--- NOTE | 2024-11-11 12:20 | PD.SAPROG ---
Progress Note - SubAcute DIAGNOSIS (1) Acute arterial ischemic stroke, vertebrobasilar, brainstem: Status: Chronic Qualifiers: Laterality: left Qualified Code(s): I63.212 - Cerebral infarction due to unspecified occlusion or stenosis of left vertebral artery; I63.22 - Cerebral infarction due to unspecified occlusion or stenosis of basilar artery (2) Seizures, generalized convulsive: Status: Chronic (3) Chronic respiratory failure: Status: Chronic Qualifiers: Respiratory failure complication: unspecified whether with hypoxia or hypercapnia Qualified Code(s): J96.10 - Chronic respiratory failure, unspecified whether with hypoxia or hypercapnia (4) Altered glucose metabolism due to diabetes: Status: Chronic (5) Encephalopathy: Status: Chronic (6) Decubital ulcer: Status: Chronic (7) G tube feedings: Status: Chronic (8) Tracheostomy in place: Status: Chronic SUBJECTIVE Fever:: none Shortness of Breath:: none Pain:: none OBJECTIVE Most recent vital signs: Last Vital Signs Temp 97.5 F 11/14/24 06:00 Pulse 59 L 11/14/24 06:00 Resp 20 11/14/24 06:00 BP 109/62 11/14/24 06:00 Pulse Ox 97 11/14/24 06:00 O2 Del Method Blow-by 11/14/24 06:00 O2 Flow Rate 6 11/14/24 00:15 FiO2 28 11/14/24 00:15 Speech:: mouths words (sometimes) Answers questions:: sometimes (mostly by gestures) Respiratory:: lungs clear Cardiovascular: RRR Abdomen: soft Tracheostomy:: to blow by Feeding per:: G tube ASSESSMENT & PLAN Assessment: Pt seems to be fairly stable with all above diagnosis and with limited /guarded prognosis for recovery to independent living and needs all support. Family supportive Denies any pain. VSS 11-11-24 Met with family in pt's room and updated them as well as answered all questions. Reiterated limited prognosis for independent living. Plan: Full support medical/nutritional and emotional towards maintaining some quality of life
[2024-11-11] MEDS: ATORVASTATIN 40 MG TABLET GT (21:19)
[2024-11-12] VITALS (8 sets, daily range): BP systolic 114–124; BP diastolic 64–69; PULSE 61–80; RESP 18–22; TEMP 36.6–37.1; O2SAT 95–100
[2024-11-12] MEDS: LEVOTHYROXINE 200 MCG TABLET GT (05:45)
[2024-11-12] MEDS: IPRATROPIUM/ALBUTEROL 3 ML AMPUL.NEB INH ×4 (07:10→18:30)
[2024-11-12] MEDS: AMIODARONE 200 MG TABLET 400 MG GT (09:02)
[2024-11-12] MEDS: APIXABAN 5 MG TABLET GT ×2 (09:04→20:28)
[2024-11-12] MEDS: CHOLECALCIFEROL (VITAMIN D3) 25 MCG TABLET GT (09:04)
[2024-11-12] MEDS: SENNOSIDES 8.6 MG TABLET GT ×2 (09:05→20:28)
[2024-11-12] MEDS: DEX/HYPRO/GLY ARTIFICAL TEARS 225 DROP/15 ML BTL BOTH EYES ×2 (09:05→20:27)
[2024-11-12] MEDS: CLOPIDOGREL BISULFATE 75 MG TABLET GT (09:05)
--- NOTE | 2024-11-12 09:39 | PC.NURSE ---
Today while doing ROM on Edu Mcneil I noticed he complains of pain on his RUE. I notified the nurse and PT. PT said to hold off on ROM on that RUE until Sunday when she comes to evaluate again.
--- NOTE | 2024-11-12 10:18 | PC.SS ---
Room visit: Resident is in jose daniel chair in activities, he is in good spirits and is seen smiling. Resident family is at bedside daily, resident remains on blow by with trach in place and GT for medication and nutrition. He will remain in current care and will continue to have all subacute care needs met by staff.
[2024-11-12] MEDS: INSULIN REGULAR, HUMAN 100 UNIT/ML VIAL SC (11:58)
[2024-11-12] MEDS: ATORVASTATIN 40 MG TABLET GT (20:28)
[2024-11-13] VITALS (8 sets, daily range): BP systolic 115–134; BP diastolic 62–72; PULSE 66–79; RESP 16–20; TEMP 36.2–36.9; O2SAT 96–99
[2024-11-13] MEDS: LEVOTHYROXINE 200 MCG TABLET GT (05:28)
[2024-11-13] MEDS: IPRATROPIUM/ALBUTEROL 3 ML AMPUL.NEB INH ×4 (07:09→16:52)
[2024-11-13] MEDS: AMIODARONE 200 MG TABLET 400 MG GT (09:03)
[2024-11-13] MEDS: APIXABAN 5 MG TABLET GT ×2 (09:07→20:27)
[2024-11-13] MEDS: DEX/HYPRO/GLY ARTIFICAL TEARS 225 DROP/15 ML BTL BOTH EYES ×2 (09:08→20:27)
[2024-11-13] MEDS: SENNOSIDES 8.6 MG TABLET GT ×2 (09:08→20:27)
[2024-11-13] MEDS: CHOLECALCIFEROL (VITAMIN D3) 25 MCG TABLET GT (09:08)
[2024-11-13] MEDS: CLOPIDOGREL BISULFATE 75 MG TABLET GT (09:08)
[2024-11-13] MEDS: INSULIN REGULAR, HUMAN 100 UNIT/ML VIAL SC (12:05)
[2024-11-13] MEDS: ATORVASTATIN 40 MG TABLET GT (20:27)
[2024-11-13] MEDS: MAGNESIUM HYDROXIDE 30 ML ORAL SUSP ML GT (20:28)
[2024-11-14] VITALS (10 sets, daily range): BP systolic 106–123; BP diastolic 54–69; PULSE 59–79; RESP 16–20; TEMP 36.4; O2SAT 95–99; BMI 20.6
[2024-11-14] MEDS: IPRATROPIUM/ALBUTEROL 3 ML AMPUL.NEB INH ×4 (00:15→18:20)
[2024-11-14] MEDS: INSULIN REGULAR, HUMAN 100 UNIT/ML VIAL SC ×2 (05:30→11:34)
[2024-11-14] MEDS: LEVOTHYROXINE 200 MCG TABLET GT (05:31)
[2024-11-14] MEDS: APIXABAN 5 MG TABLET GT (09:39)
[2024-11-14] MEDS: AMIODARONE 200 MG TABLET 400 MG GT (09:39)
[2024-11-14] MEDS: CHOLECALCIFEROL (VITAMIN D3) 25 MCG TABLET GT (09:40)
[2024-11-14] MEDS: DEX/HYPRO/GLY ARTIFICAL TEARS 225 DROP/15 ML BTL BOTH EYES ×2 (09:40→21:01)
[2024-11-14] MEDS: CLOPIDOGREL BISULFATE 75 MG TABLET GT (09:40)
[2024-11-14] MEDS: SENNOSIDES 8.6 MG TABLET GT ×2 (09:41→21:01)
--- NOTE | 2024-11-14 10:16 | PC.NURSE ---
PT had came to evaluate the resident in [address] [place] [address] she said that he is going to be able to do rom on his RUE, that it is tight.
--- NOTE | 2024-11-14 13:06 | PC.NURSE ---
Report received that resident c/0 pain to right arm when RNA doing the ROM. Resident was seen by PT today, as per RNA, tightness to right arm is fine as per PT and resident will just have to pre-medicate with pain pill prior doing RNA ROM.
--- NOTE | 2024-11-14 13:44 | PC.NURSE ---
Called Dr Banerjee and verbally reported the CT brain result and she said to hold the Plavix and Eliquis until she'd seen it.
--- NOTE | 2024-11-14 14:58 | PC.NURSE ---
Called Dr East and verbally reported resident's CT head result and this scientific technical writer had already reported to Dr Banerjee and her order to hold the Plavix and Eliquis , no new orders received at this time, just to make sure Plavix and eliqiuis are on hold. WOUND CARE RN in charge made aware . Resident stable at this time. Awake and alert.
[2024-11-14] MEDS: ATORVASTATIN 40 MG TABLET GT (20:59)
--- NOTE | 2024-11-14 22:24 | PC.NURSE ---
SPOKE WITH DR. DUEÑAS. MD ORDERED TO RESUME PLAVIX AND ELOQUIS, AND TO REPEAT CT OF HEAD IN ONE WEEK. ALSO, NOTIFIED DR. DAVALOS OF DR. DUEÑAS'S ORDER. MD AGREE WITH NEW ORDERS.
--- NOTE | 2024-11-14 23:46 | PD.VPROG1 ---
Telemedicine visit statement This visit was conducted with the use of interactive audio and video telecommunications system that permits real time communication between the patient and the provider. Patient's verbal consent for virtual visit was obtained on 11/14/24 at 2346. Documentation for date of: 11/14/24 Virtual exam Vital Signs Temp Pulse Resp BP Pulse Ox O2 Del Method O2 Flow Rate 97.5 F 79 18 116/54 L 98 Blow-by 6 11/14/24 17:51 11/14/24 18:20 11/14/24 18:20 11/14/24 17:51 11/14/24 18:20 11/14/24 17:51 11/14/24 18:20 FiO2 28 11/14/24 18:20 Objective Labs 10/24/24 17:38 10/24/24 17:38 ABG Interpretation ABG results: 10/24/24 10/25/24 17:31 08:26 ABG pH 7.44 7.45 ABG pCO2 53 H 50 H ABG pO2 31 L* 102 D ABG HCO3 36 H 34 H ABG O2 Saturation 55 L 97 ABG Base Excess 10 H 9 H
[2024-11-15] VITALS (9 sets, daily range): BP systolic 107–120; BP diastolic 55–69; PULSE 54–86; RESP 17–22; TEMP 36.3–36.6; O2SAT 95–99
[2024-11-15] MEDS: IPRATROPIUM/ALBUTEROL 3 ML AMPUL.NEB INH ×4 (00:20→18:15)
[2024-11-15] MEDS: LEVOTHYROXINE 200 MCG TABLET GT (05:18)
[2024-11-15] MEDS: INSULIN REGULAR, HUMAN 100 UNIT/ML VIAL SC ×2 (05:32→11:15)
[2024-11-15] MEDS: AMIODARONE 200 MG TABLET 400 MG GT (08:10)
[2024-11-15] MEDS: APIXABAN 5 MG TABLET GT ×2 (08:10→20:03)
[2024-11-15] MEDS: CHOLECALCIFEROL (VITAMIN D3) 25 MCG TABLET GT (08:11)
[2024-11-15] MEDS: SENNOSIDES 8.6 MG TABLET GT ×2 (08:11→20:04)
[2024-11-15] MEDS: DEX/HYPRO/GLY ARTIFICAL TEARS 225 DROP/15 ML BTL BOTH EYES ×2 (08:11→20:04)
[2024-11-15] MEDS: CLOPIDOGREL BISULFATE 75 MG TABLET GT (08:11)
[2024-11-15] MEDS: ATORVASTATIN 40 MG TABLET GT (20:04)
--- NOTE | 2024-11-15 20:15 | PD.SAPROG ---
Progress Note - SubAcute DIAGNOSIS (1) Acute arterial ischemic stroke, vertebrobasilar, brainstem: Status: Chronic Qualifiers: Laterality: left Qualified Code(s): I63.212 - Cerebral infarction due to unspecified occlusion or stenosis of left vertebral artery; I63.22 - Cerebral infarction due to unspecified occlusion or stenosis of basilar artery (2) Seizures, generalized convulsive: Status: Chronic (3) Chronic respiratory failure: Status: Chronic Qualifiers: Respiratory failure complication: unspecified whether with hypoxia or hypercapnia Qualified Code(s): J96.10 - Chronic respiratory failure, unspecified whether with hypoxia or hypercapnia (4) Altered glucose metabolism due to diabetes: Status: Chronic (5) Encephalopathy: Status: Chronic (6) Decubital ulcer: Status: Chronic (7) G tube feedings: Status: Chronic (8) Tracheostomy in place: Status: Chronic SUBJECTIVE Fever:: none Shortness of Breath:: none Pain:: none OBJECTIVE Most recent vital signs: Last Vital Signs Temp 97.3 F 11/15/24 16:52 Pulse 60 11/15/24 16:52 Resp 17 11/15/24 16:52 BP 111/60 11/15/24 16:52 Pulse Ox 98 11/15/24 12:20 O2 Del Method Blow-by 11/15/24 06:00 O2 Flow Rate 6 11/15/24 12:20 FiO2 28 11/15/24 12:20 Speech:: mouths words (sometimes) Answers questions:: sometimes (mostly by gestures) Respiratory:: lungs clear Cardiovascular: RRR Abdomen: soft Tracheostomy:: to blow by Feeding per:: G tube ASSESSMENT & PLAN Assessment: Pt seems to be fairly stable with all above diagnosis and with limited /guarded prognosis for recovery to independent living and needs all support. Family supportive Denies any pain. VSS 11-11-24 Met with family in pt's room and updated them as well as answered all questions. Reiterated limited prognosis for independent living. Plan: Full support medical/nutritional and emotional towards maintaining some quality of life
[2024-11-16] VITALS (9 sets, daily range): BP systolic 113–121; BP diastolic 52–66; PULSE 56–71; RESP 16–20; TEMP 36.2–36.6; O2SAT 97–99
[2024-11-16] MEDS: IPRATROPIUM/ALBUTEROL 3 ML AMPUL.NEB INH ×4 (01:15→18:47)
[2024-11-16] MEDS: INSULIN REGULAR, HUMAN 100 UNIT/ML VIAL SC ×2 (05:23→11:02)
[2024-11-16] MEDS: LEVOTHYROXINE 200 MCG TABLET GT (05:24)
[2024-11-16] MEDS: APIXABAN 5 MG TABLET GT ×2 (08:02→20:43)
[2024-11-16] MEDS: CLOPIDOGREL BISULFATE 75 MG TABLET GT (08:02)
[2024-11-16] MEDS: CHOLECALCIFEROL (VITAMIN D3) 25 MCG TABLET GT (08:02)
[2024-11-16] MEDS: AMIODARONE 200 MG TABLET 400 MG GT (08:02)
[2024-11-16] MEDS: SENNOSIDES 8.6 MG TABLET GT ×2 (08:03→20:43)
[2024-11-16] MEDS: DEX/HYPRO/GLY ARTIFICAL TEARS 225 DROP/15 ML BTL BOTH EYES ×2 (08:03→20:43)
[2024-11-16] MEDS: ATORVASTATIN 40 MG TABLET GT (20:43)
[2024-11-16] MEDS: BISACODYL 10 MG SUPP.RECT PR (21:47)
[2024-11-17] VITALS (9 sets, daily range): BP systolic 114–150; BP diastolic 62–93; PULSE 56–98; RESP 16–20; TEMP 36.1–36.8; O2SAT 92–99
[2024-11-17] MEDS: IPRATROPIUM/ALBUTEROL 3 ML AMPUL.NEB INH ×4 (00:39→17:55)
[2024-11-17] MEDS: LEVOTHYROXINE 200 MCG TABLET GT (05:24)
[2024-11-17] MEDS: INSULIN REGULAR, HUMAN 100 UNIT/ML VIAL SC ×2 (05:25→12:03)
[2024-11-17] MEDS: CLOPIDOGREL BISULFATE 75 MG TABLET GT (09:30)
[2024-11-17] MEDS: DEX/HYPRO/GLY ARTIFICAL TEARS 225 DROP/15 ML BTL BOTH EYES ×2 (09:30→20:39)
[2024-11-17] MEDS: SENNOSIDES 8.6 MG TABLET GT ×2 (09:30→20:39)
[2024-11-17] MEDS: APIXABAN 5 MG TABLET GT ×2 (09:30→20:39)
[2024-11-17] MEDS: CHOLECALCIFEROL (VITAMIN D3) 25 MCG TABLET GT (09:30)
[2024-11-17] MEDS: AMIODARONE 200 MG TABLET 400 MG GT (10:51)
[2024-11-17] MEDS: ATORVASTATIN 40 MG TABLET GT (20:39)
[2024-11-18] VITALS (9 sets, daily range): BP systolic 102–131; BP diastolic 63–69; PULSE 58–71; RESP 16–18; TEMP 36.6–37.2; O2SAT 90–99
[2024-11-18] MEDS: IPRATROPIUM/ALBUTEROL 3 ML AMPUL.NEB INH ×4 (00:01→18:58)
[2024-11-18] MEDS: INSULIN REGULAR, HUMAN 100 UNIT/ML VIAL SC ×2 (05:37→11:59)
[2024-11-18] MEDS: LEVOTHYROXINE 200 MCG TABLET GT (05:38)
[2024-11-18] MEDS: AMIODARONE 200 MG TABLET 400 MG GT (09:22)
[2024-11-18] MEDS: SENNOSIDES 8.6 MG TABLET GT ×2 (09:23→20:55)
[2024-11-18] MEDS: CLOPIDOGREL BISULFATE 75 MG TABLET GT (09:23)
[2024-11-18] MEDS: APIXABAN 5 MG TABLET GT ×2 (09:23→20:55)
[2024-11-18] MEDS: DEX/HYPRO/GLY ARTIFICAL TEARS 225 DROP/15 ML BTL BOTH EYES ×2 (09:23→20:55)
[2024-11-18] MEDS: CHOLECALCIFEROL (VITAMIN D3) 25 MCG TABLET GT (09:23)
[2024-11-18] MEDS: ATORVASTATIN 40 MG TABLET GT (20:55)
[2024-11-19] VITALS (9 sets, daily range): BP systolic 109–137; BP diastolic 60–79; PULSE 58–87; RESP 16–21; TEMP 36.1–36.8; O2SAT 94–99
[2024-11-19] MEDS: INSULIN REGULAR, HUMAN 100 UNIT/ML VIAL SC ×3 (00:13→12:15)
[2024-11-19] MEDS: IPRATROPIUM/ALBUTEROL 3 ML AMPUL.NEB INH ×4 (00:36→18:50)
[2024-11-19] MEDS: LEVOTHYROXINE 200 MCG TABLET GT (05:20)
--- NOTE | 2024-11-19 08:43 | PC.NURSE ---
. made aware that resident is on lyon for more than 2 weeks, and . order to D/C the lyon and monitor resident, order noted and carried out.
[2024-11-19] MEDS: AMIODARONE 200 MG TABLET 400 MG GT (08:45)
[2024-11-19] MEDS: CLOPIDOGREL BISULFATE 75 MG TABLET GT (08:48)
[2024-11-19] MEDS: DEX/HYPRO/GLY ARTIFICAL TEARS 225 DROP/15 ML BTL BOTH EYES ×2 (08:48→20:48)
[2024-11-19] MEDS: APIXABAN 5 MG TABLET GT ×2 (08:48→20:48)
[2024-11-19] MEDS: CHOLECALCIFEROL (VITAMIN D3) 25 MCG TABLET GT (08:48)
[2024-11-19] MEDS: SENNOSIDES 8.6 MG TABLET GT ×2 (08:49→20:48)
--- NOTE | 2024-11-19 10:48 | PC.NURSE ---
0655- During walking rounds with oncoming shift, noted pink tinged blood in lyon tubing and dark orange urine in lyon bag. 400ml of water given via g-tube. No s/s of pain or discomfort noted. Will continue with current plan of care.
--- NOTE | 2024-11-19 11:04 | PC.NURSE ---
0655- During walking rounds with oncoming shift, noted pink tinged blood in lyon tubing and dark orange urine in lyon bag. 400 ml water given via g-tube. No s/s of pain or discomfort noted. Will continue with current plan of care.
--- NOTE | 2024-11-19 12:20 | PD.SAPROG ---
Progress Note - SubAcute DIAGNOSIS (1) Acute arterial ischemic stroke, vertebrobasilar, brainstem: Status: Chronic Qualifiers: Laterality: left Qualified Code(s): I63.212 - Cerebral infarction due to unspecified occlusion or stenosis of left vertebral artery; I63.22 - Cerebral infarction due to unspecified occlusion or stenosis of basilar artery (2) Seizures, generalized convulsive: Status: Chronic (3) Chronic respiratory failure: Status: Chronic Qualifiers: Respiratory failure complication: unspecified whether with hypoxia or hypercapnia Qualified Code(s): J96.10 - Chronic respiratory failure, unspecified whether with hypoxia or hypercapnia (4) Altered glucose metabolism due to diabetes: Status: Chronic (5) Encephalopathy: Status: Chronic (6) Decubital ulcer: Status: Chronic (7) G tube feedings: Status: Chronic (8) Tracheostomy in place: Status: Chronic SUBJECTIVE Fever:: none Shortness of Breath:: none Pain:: none OBJECTIVE Most recent vital signs: Last Vital Signs Temp 97.7 F 11/21/24 16:25 Pulse 66 11/22/24 00:14 Resp 18 11/22/24 00:14 BP 116/72 11/21/24 16:25 Pulse Ox 99 11/22/24 00:14 O2 Del Method Blow-by 11/21/24 06:00 O2 Flow Rate 6 11/22/24 00:14 FiO2 28 11/22/24 00:14 Speech:: mouths words (sometimes) Answers questions:: sometimes (mostly by gestures) Respiratory:: lungs clear Cardiovascular: RRR Abdomen: soft Tracheostomy:: to blow by Feeding per:: G tube ASSESSMENT & PLAN Assessment: Pt seems to be fairly stable with all above diagnosis and with limited /guarded prognosis for recovery to independent living and needs all support. Family supportive Denies any pain. VSS 11-11-24 Met with family in pt's room and updated them as well as answered all questions. Reiterated limited prognosis for independent living. Neurology input on prognostic outlook and medication review Plan: Full support medical/nutritional and emotional towards maintaining some quality of life
[2024-11-19] MEDS: ACETAMINOPHEN 325 MG TABLET 650 MG GT (12:42)
--- NOTE | 2024-11-19 14:51 | PC.NURSE ---
1045-Lyon catheter discontinued per MD order, tolerated well, no s/s of pain or discomfort noted. 600ml of dark orange urine emptied from lyon bag. 1415- Resident has not voided since discontinuing lyon. Bladder scan done and 143ml of urine visualized. Bladder is soft and non distended. Will continue to monitor. Resident also noted with bloody secretions. Spoke with RT regarding bloody secretions and RT stated he felt resistance while suctioning resident and after advancing trach, resident had bloody secretions. Resident is awake with family at bedside. No s/s of distress or pain noted, will continue to monitor for changes.
--- NOTE | 2024-11-19 18:37 | PC.NURSE ---
Family at bedside with resident and voiced concerns regarding resident sleeping more than usual. Resident easily awakes to voice and touch and will interact with family and typewriter aligner when spoken to. Family has been at bedside for most of shift. Resident is awake at this time. No s/s of distress or pain noted. Charge nurse made aware of families concerns .
--- NOTE | 2024-11-19 19:03 | PC.NURSE ---
1737-resident voided x1 after discontinuation of lyon catheter.
[2024-11-19] MEDS: ATORVASTATIN 40 MG TABLET GT (20:48)
[2024-11-20] VITALS (10 sets, daily range): BP systolic 99–109; BP diastolic 56–61; PULSE 59–83; RESP 18–23; TEMP 35.9–36.5; O2SAT 95–100
[2024-11-20] MEDS: IPRATROPIUM/ALBUTEROL 3 ML AMPUL.NEB INH ×4 (01:35→19:12)
[2024-11-20] MEDS: INSULIN REGULAR, HUMAN 100 UNIT/ML VIAL SC ×3 (05:47→17:35)
[2024-11-20] MEDS: LEVOTHYROXINE 200 MCG TABLET GT (05:48)
[2024-11-20] MEDS: AMIODARONE 200 MG TABLET 400 MG GT (08:44)
[2024-11-20] MEDS: DEX/HYPRO/GLY ARTIFICAL TEARS 225 DROP/15 ML BTL BOTH EYES ×2 (08:45→21:17)
[2024-11-20] MEDS: CHOLECALCIFEROL (VITAMIN D3) 25 MCG TABLET GT (08:45)
[2024-11-20] MEDS: SENNOSIDES 8.6 MG TABLET GT ×2 (08:45→21:18)
[2024-11-20] MEDS: CLOPIDOGREL BISULFATE 75 MG TABLET GT (08:45)
[2024-11-20] MEDS: APIXABAN 5 MG TABLET GT ×2 (08:45→21:17)
[2024-11-20] MEDS: ATORVASTATIN 40 MG TABLET GT (21:17)
[2024-11-21] VITALS (9 sets, daily range): BP systolic 108–130; BP diastolic 56–72; PULSE 57–82; RESP 18–20; TEMP 36.2–36.6; O2SAT 96–100; BMI 20.7; BMI 12.0
[2024-11-21] MEDS: INSULIN REGULAR, HUMAN 100 UNIT/ML VIAL SC ×2 (00:03→12:18)
[2024-11-21] MEDS: IPRATROPIUM/ALBUTEROL 3 ML AMPUL.NEB INH ×4 (00:41→19:46)
[2024-11-21] MEDS: LEVOTHYROXINE 200 MCG TABLET GT (05:14)
[2024-11-21] MEDS: CHOLECALCIFEROL (VITAMIN D3) 25 MCG TABLET GT (08:03)
[2024-11-21] MEDS: APIXABAN 5 MG TABLET GT ×2 (08:03→21:15)
[2024-11-21] MEDS: CLOPIDOGREL BISULFATE 75 MG TABLET GT (08:03)
[2024-11-21] MEDS: SENNOSIDES 8.6 MG TABLET GT ×2 (08:03→21:16)
[2024-11-21] MEDS: AMIODARONE 200 MG TABLET 400 MG GT (08:03)
[2024-11-21] MEDS: DEX/HYPRO/GLY ARTIFICAL TEARS 225 DROP/15 ML BTL BOTH EYES ×2 (08:03→21:15)
--- NOTE | 2024-11-21 11:50 | PC.SS ---
Room visit: Resident is laying in bed with head of the bed elevated with call light properly placed with no signs of distress. Resident will remain in current care and will continue to have all subacute care needs met by staff. Resident family is at bedside daily offering support. Resident remains on blow by with trach in place and GT for medications and nutrition. This SSD will continue to make daily contact with resident and monitor for changes in mood and behavior.
--- NOTE | 2024-11-21 14:11 | PC.NURSE ---
Resident sent out for CT scan via gurney. Returned within 15 minutes.
--- NOTE | 2024-11-21 14:24 | PC.NURSE ---
Notified Dr. Banerjee regarding CT scan performed this afternoon has been read by radiologist. Dr. Bustos stated she will review study.
[2024-11-21] MEDS: ATORVASTATIN 40 MG TABLET GT (21:15)
[2024-11-22] VITALS (8 sets, daily range): BP systolic 106–127; BP diastolic 49–64; PULSE 49–78; RESP 16–22; TEMP 36.3–36.8; O2SAT 96–99
[2024-11-22] MEDS: IPRATROPIUM/ALBUTEROL 3 ML AMPUL.NEB INH ×4 (00:14→19:43)
[2024-11-22] MEDS: LEVOTHYROXINE 200 MCG TABLET GT (05:31)
[2024-11-22] MEDS: INSULIN REGULAR, HUMAN 100 UNIT/ML VIAL SC ×2 (05:33→11:52)
[2024-11-22] MEDS: APIXABAN 5 MG TABLET GT ×2 (08:08→20:52)
[2024-11-22] MEDS: SENNOSIDES 8.6 MG TABLET GT ×2 (08:09→20:53)
[2024-11-22] MEDS: CLOPIDOGREL BISULFATE 75 MG TABLET GT (08:09)
[2024-11-22] MEDS: CHOLECALCIFEROL (VITAMIN D3) 25 MCG TABLET GT (08:09)
[2024-11-22] MEDS: DEX/HYPRO/GLY ARTIFICAL TEARS 225 DROP/15 ML BTL BOTH EYES ×2 (08:09→20:53)
[2024-11-22] MEDS: ATORVASTATIN 40 MG TABLET GT (20:52)
[2024-11-23] VITALS (10 sets, daily range): BP systolic 106–131; BP diastolic 64–70; PULSE 54–72; RESP 17–20; TEMP 36.1–36.9; O2SAT 97–99
[2024-11-23] MEDS: INSULIN REGULAR, HUMAN 100 UNIT/ML VIAL SC ×3 (00:28→11:02)
[2024-11-23] MEDS: IPRATROPIUM/ALBUTEROL 3 ML AMPUL.NEB INH ×4 (01:49→18:58)
[2024-11-23] MEDS: LEVOTHYROXINE 200 MCG TABLET GT (05:40)
[2024-11-23] MEDS: CLOPIDOGREL BISULFATE 75 MG TABLET GT (08:07)
[2024-11-23] MEDS: DEX/HYPRO/GLY ARTIFICAL TEARS 225 DROP/15 ML BTL BOTH EYES ×2 (08:07→20:41)
[2024-11-23] MEDS: SENNOSIDES 8.6 MG TABLET GT ×2 (08:07→20:41)
[2024-11-23] MEDS: APIXABAN 5 MG TABLET GT ×2 (08:07→20:40)
[2024-11-23] MEDS: CHOLECALCIFEROL (VITAMIN D3) 25 MCG TABLET GT (08:07)
--- NOTE | 2024-11-23 10:45 | PD.SAPROG ---
Progress Note - SubAcute DIAGNOSIS (1) Acute arterial ischemic stroke, vertebrobasilar, brainstem: Status: Chronic Qualifiers: Laterality: left Qualified Code(s): I63.212 - Cerebral infarction due to unspecified occlusion or stenosis of left vertebral artery; I63.22 - Cerebral infarction due to unspecified occlusion or stenosis of basilar artery (2) Seizures, generalized convulsive: Status: Chronic (3) Chronic respiratory failure: Status: Chronic Qualifiers: Respiratory failure complication: unspecified whether with hypoxia or hypercapnia Qualified Code(s): J96.10 - Chronic respiratory failure, unspecified whether with hypoxia or hypercapnia (4) Altered glucose metabolism due to diabetes: Status: Chronic (5) Encephalopathy: Status: Chronic (6) Decubital ulcer: Status: Chronic (7) G tube feedings: Status: Chronic (8) Tracheostomy in place: Status: Chronic SUBJECTIVE Fever:: none Shortness of Breath:: none Pain:: none OBJECTIVE Most recent vital signs: Last Vital Signs Temp 97.5 F 11/23/24 05:42 Pulse 58 L 11/23/24 08:06 Resp 18 11/23/24 07:25 BP 127/65 11/23/24 08:06 Pulse Ox 99 11/23/24 07:25 O2 Del Method Blow-by 11/22/24 10:59 O2 Flow Rate 6 11/23/24 07:25 FiO2 28 11/23/24 07:25 Speech:: mouths words (sometimes) Answers questions:: sometimes (mostly by gestures) Respiratory:: lungs clear Cardiovascular: RRR Abdomen: soft Tracheostomy:: to blow by Feeding per:: G tube ASSESSMENT & PLAN Assessment: Pt seems to be fairly stable with all above diagnosis and with limited /guarded prognosis for recovery to independent living and needs all support. Family supportive Denies any pain. VSS 11-11-24 Met with family in pt's room and updated them as well as answered all questions. Reiterated limited prognosis for independent living. Neurology input on prognostic outlook and medication review followed. Plan: Full support medical/nutritional and emotional towards maintaining some quality of life
[2024-11-23 16:32] LABS: Albumin, Serum 3.3 gm/dL (3.4-4.8); Anion Gap 6 (7-16); BUN/Creatinine Ratio 17 Ratio (12-20); Blood Urea Nitrogen 12 mg/dL (9-23); Calcium 8.8 mg/dL (8.3-10.6); Calcium (Corrected) 9.4 mg/dL (8.5-10.1); Carbon Dioxide 29.5 mMol/L (20.0-31.0); Chloride 106 mMol/L (98-107); Creatinine (Component) 0.7 mg/dL (0.6-1.3); Estimated Creatinine Clearance 110.4 mL/min (>60); Glucose 149 mg/dL (74-106); Osmolality,Calculated 283 (275-295); Phosphorous 3.5 mg/dL (2.4-5.1); Potassium 3.6 mMol/L (3.4-5.1); Sodium 141 mMol/L (136-145); eGFR > 60 See Note
[2024-11-23] MEDS: ATORVASTATIN 40 MG TABLET GT (20:41)
[2024-11-24] VITALS (8 sets, daily range): BP systolic 112–130; BP diastolic 60–74; PULSE 59–91; RESP 18–20; TEMP 36.1–36.4; O2SAT 96–99
[2024-11-24] MEDS: IPRATROPIUM/ALBUTEROL 3 ML AMPUL.NEB INH ×4 (00:17→19:50)
[2024-11-24] MEDS: INSULIN REGULAR, HUMAN 100 UNIT/ML VIAL SC ×2 (05:35→11:41)
[2024-11-24] MEDS: CLOPIDOGREL BISULFATE 75 MG TABLET GT (09:12)
[2024-11-24] MEDS: AMIODARONE 200 MG TABLET 400 MG GT (09:12)
[2024-11-24] MEDS: CHOLECALCIFEROL (VITAMIN D3) 25 MCG TABLET GT (09:13)
[2024-11-24] MEDS: APIXABAN 5 MG TABLET GT ×2 (09:13→20:23)
[2024-11-24] MEDS: SENNOSIDES 8.6 MG TABLET GT ×2 (09:13→20:24)
[2024-11-24] MEDS: DEX/HYPRO/GLY ARTIFICAL TEARS 225 DROP/15 ML BTL BOTH EYES ×2 (09:13→20:23)
[2024-11-24] MEDS: MAGNESIUM HYDROXIDE 30 ML ORAL SUSP ML GT (09:16)
[2024-11-24 09:52] LABS: Glucose,Fasting 163 mg/dL (74-106)
[2024-11-24] MEDS: ATORVASTATIN 40 MG TABLET GT (20:23)
[2024-11-24] MEDS: BISACODYL 10 MG SUPP.RECT PR (21:30)
[2024-11-25] VITALS (9 sets, daily range): BP systolic 111–133; BP diastolic 63–72; PULSE 6–74; RESP 18–23; TEMP 36.3–36.7; O2SAT 95–99
[2024-11-25] MEDS: IPRATROPIUM/ALBUTEROL 3 ML AMPUL.NEB INH ×4 (01:03→20:17)
[2024-11-25] MEDS: INSULIN REGULAR, HUMAN 100 UNIT/ML VIAL SC ×2 (05:33→11:50)
[2024-11-25] MEDS: LEVOTHYROXINE 200 MCG TABLET GT (05:33)
[2024-11-25] MEDS: APIXABAN 5 MG TABLET GT ×2 (08:05→20:39)
[2024-11-25] MEDS: SENNOSIDES 8.6 MG TABLET GT ×2 (08:05→20:40)
[2024-11-25] MEDS: DEX/HYPRO/GLY ARTIFICAL TEARS 225 DROP/15 ML BTL BOTH EYES ×2 (08:05→20:39)
[2024-11-25] MEDS: CHOLECALCIFEROL (VITAMIN D3) 25 MCG TABLET GT (08:05)
[2024-11-25] MEDS: AMIODARONE 200 MG TABLET 400 MG GT (08:05)
[2024-11-25] MEDS: CLOPIDOGREL BISULFATE 75 MG TABLET GT (08:05)
[2024-11-25] MEDS: SODIUM PHOSPHATE,MONO-DIBASIC 133 ML ENEMA PR (10:37)
[2024-11-25] MEDS: ATORVASTATIN 40 MG TABLET GT (20:39)
[2024-11-26] VITALS (8 sets, daily range): BP systolic 120–137; BP diastolic 60–71; PULSE 53–76; RESP 18–22; TEMP 36.2–36.4; O2SAT 96–99
[2024-11-26] MEDS: IPRATROPIUM/ALBUTEROL 3 ML AMPUL.NEB INH ×4 (00:40→19:06)
[2024-11-26] MEDS: INSULIN REGULAR, HUMAN 100 UNIT/ML VIAL SC ×2 (05:19→11:30)
[2024-11-26] MEDS: LEVOTHYROXINE 200 MCG TABLET GT (05:19)
[2024-11-26] MEDS: AMIODARONE 200 MG TABLET 400 MG GT (08:06)
[2024-11-26] MEDS: DEX/HYPRO/GLY ARTIFICAL TEARS 225 DROP/15 ML BTL BOTH EYES ×2 (08:06→20:46)
[2024-11-26] MEDS: APIXABAN 5 MG TABLET GT ×2 (08:06→20:46)
[2024-11-26] MEDS: CHOLECALCIFEROL (VITAMIN D3) 25 MCG TABLET GT (08:06)
[2024-11-26] MEDS: CLOPIDOGREL BISULFATE 75 MG TABLET GT (08:06)
[2024-11-26] MEDS: SENNOSIDES 8.6 MG TABLET GT ×2 (08:07→20:46)
[2024-11-26] MEDS: ATORVASTATIN 40 MG TABLET GT (20:46)
[2024-11-27] VITALS (9 sets, daily range): BP systolic 101–132; BP diastolic 61–70; PULSE 56–74; RESP 17–19; TEMP 36.1–36.5; O2SAT 97–99
[2024-11-27] MEDS: IPRATROPIUM/ALBUTEROL 3 ML AMPUL.NEB INH ×4 (00:23→18:33)
[2024-11-27] MEDS: LEVOTHYROXINE 200 MCG TABLET GT (05:24)
[2024-11-27] MEDS: CHOLECALCIFEROL (VITAMIN D3) 25 MCG TABLET GT (08:08)
[2024-11-27] MEDS: CLOPIDOGREL BISULFATE 75 MG TABLET GT (08:08)
[2024-11-27] MEDS: DEX/HYPRO/GLY ARTIFICAL TEARS 225 DROP/15 ML BTL BOTH EYES ×2 (08:08→20:43)
[2024-11-27] MEDS: APIXABAN 5 MG TABLET GT ×2 (08:08→20:43)
[2024-11-27] MEDS: SENNOSIDES 8.6 MG TABLET GT ×2 (08:09→20:43)
[2024-11-27] MEDS: INSULIN REGULAR, HUMAN 100 UNIT/ML VIAL SC (11:10)
--- NOTE | 2024-11-27 13:56 | PC.NURSE ---
Notified Dr. East regarding family wanting to know results of Ct- scan. aliya unable to conctated us yesterday. personally telephone Dr. Banerjee regarding results. DR. Bustos gave Concern to review CT results with resident's family. No further orders given to carry out. resident remains stable at this time. Dr. Bustos will f/u with pt in 3 months.
--- NOTE | 2024-11-27 15:41 | PD.SAPROG ---
Progress Note - SubAcute DIAGNOSIS (1) Acute arterial ischemic stroke, vertebrobasilar, brainstem: Status: Chronic Qualifiers: Laterality: left Qualified Code(s): I63.212 - Cerebral infarction due to unspecified occlusion or stenosis of left vertebral artery; I63.22 - Cerebral infarction due to unspecified occlusion or stenosis of basilar artery (2) Seizures, generalized convulsive: Status: Chronic (3) Chronic respiratory failure: Status: Chronic Qualifiers: Respiratory failure complication: unspecified whether with hypoxia or hypercapnia Qualified Code(s): J96.10 - Chronic respiratory failure, unspecified whether with hypoxia or hypercapnia (4) Altered glucose metabolism due to diabetes: Status: Chronic (5) Encephalopathy: Status: Chronic (6) Decubital ulcer: Status: Chronic (7) G tube feedings: Status: Chronic (8) Tracheostomy in place: Status: Chronic SUBJECTIVE Fever:: none Shortness of Breath:: none Pain:: none OBJECTIVE Most recent vital signs: Last Vital Signs Temp 97.0 F 11/27/24 11:33 Pulse 74 11/27/24 12:39 Resp 18 11/27/24 12:39 BP 109/67 11/27/24 11:33 Pulse Ox 99 11/27/24 12:39 O2 Del Method Blow-by 11/26/24 18:00 O2 Flow Rate 6 11/27/24 12:39 FiO2 28 11/27/24 12:39 Speech:: mouths words (sometimes) Answers questions:: sometimes (mostly by gestures) Respiratory:: lungs clear Cardiovascular: RRR Abdomen: soft Tracheostomy:: to blow by Feeding per:: G tube ASSESSMENT & PLAN Assessment: Pt seems to be fairly stable with all above diagnosis and with limited /guarded prognosis for recovery to independent living and needs all support. Family supportive Denies any pain. VSS 11-11-24 Met with family in pt's room and updated them as well as answered all questions. Reiterated limited prognosis for independent living. Neurology input on prognostic outlook and medication review followed. Repeat CT head ordered by neurologist was done and results discussed with the Neurologist who confirmed stable changes and recommended no change on medicine. This was updated with the family today the No new issues Plan: Full support medical/nutritional and emotional towards maintaining some quality of life
--- NOTE | 2024-11-27 17:12 | PC.NURSE ---
Telephone conference held with Dr. East and resident's family regarding CT scan of the head results. went on detail explaining family prognosis and results. Family was satisfied with outcome. Will continue to monitor. Will continue to monitor.
[2024-11-27] MEDS: ATORVASTATIN 40 MG TABLET GT (20:43)
[2024-11-28] VITALS (10 sets, daily range): BP systolic 110–123; BP diastolic 66–69; PULSE 53–88; RESP 14–18; TEMP 36.1–36.5; O2SAT 96–99; BMI 12.0
[2024-11-28] MEDS: IPRATROPIUM/ALBUTEROL 3 ML AMPUL.NEB INH ×4 (01:53→18:36)
[2024-11-28] MEDS: LEVOTHYROXINE 200 MCG TABLET GT (05:35)
[2024-11-28] MEDS: INSULIN REGULAR, HUMAN 100 UNIT/ML VIAL SC ×2 (05:36→11:56)
[2024-11-28 06:24] LABS: Levetiracetam (Keppra)* 16.5 mcg/mL (6.0-46.0)
[2024-11-28] MEDS: APIXABAN 5 MG TABLET GT ×2 (08:04→20:28)
[2024-11-28] MEDS: CLOPIDOGREL BISULFATE 75 MG TABLET GT (08:04)
[2024-11-28] MEDS: DEX/HYPRO/GLY ARTIFICAL TEARS 225 DROP/15 ML BTL BOTH EYES ×2 (08:04→20:29)
[2024-11-28] MEDS: CHOLECALCIFEROL (VITAMIN D3) 25 MCG TABLET GT (08:04)
[2024-11-28] MEDS: SENNOSIDES 8.6 MG TABLET GT ×2 (08:04→20:29)
--- NOTE | 2024-11-28 12:31 | PC.SS ---
Room visit: Resident is laying in bed with head of the bed elevated with call light properly placed with no signs of distress. Resident is alert and with no speech able to make words. His is his decision maker, his and son are at bedside daily. Resident has no changes in care or condition, he will remain in current care and will continue to have all subacute care needs met by staff as he remains on blow by with trach in place and GT for medication and nutrition. No changes in mood and behavior, SSD will make daily contact with resident and will offer support visits daily.
[2024-11-28] MEDS: MAGNESIUM HYDROXIDE 30 ML ORAL SUSP ML GT (14:20)
[2024-11-28] MEDS: ATORVASTATIN 40 MG TABLET GT (20:29)
[2024-11-29] VITALS (7 sets, daily range): BP systolic 113–125; BP diastolic 54–66; PULSE 66–93; RESP 16–23; TEMP 36.4–37.1; O2SAT 97–99
[2024-11-29] MEDS: IPRATROPIUM/ALBUTEROL 3 ML AMPUL.NEB INH ×4 (01:33→16:38)
[2024-11-29] MEDS: BISACODYL 10 MG SUPP.RECT PR (02:10)
[2024-11-29] MEDS: LEVOTHYROXINE 200 MCG TABLET GT (05:39)
[2024-11-29] MEDS: INSULIN REGULAR, HUMAN 100 UNIT/ML VIAL SC ×2 (05:43→11:33)
[2024-11-29] MEDS: AMIODARONE 200 MG TABLET 400 MG GT (08:07)
[2024-11-29] MEDS: DEX/HYPRO/GLY ARTIFICAL TEARS 225 DROP/15 ML BTL BOTH EYES ×2 (08:08→20:29)
[2024-11-29] MEDS: CHOLECALCIFEROL (VITAMIN D3) 25 MCG TABLET GT (08:08)
[2024-11-29] MEDS: APIXABAN 5 MG TABLET GT ×2 (08:08→20:28)
[2024-11-29] MEDS: CLOPIDOGREL BISULFATE 75 MG TABLET GT (08:08)
[2024-11-29] MEDS: SENNOSIDES 8.6 MG TABLET GT ×2 (08:08→20:29)
[2024-11-29] MEDS: ATORVASTATIN 40 MG TABLET GT (20:29)
[2024-11-30] VITALS (8 sets, daily range): BP systolic 114–129; BP diastolic 54–78; PULSE 63–81; RESP 17–22; TEMP 36.2–36.7; O2SAT 97–100
[2024-11-30] MEDS: INSULIN REGULAR, HUMAN 100 UNIT/ML VIAL SC ×2 (00:52→11:45)
[2024-11-30] MEDS: IPRATROPIUM/ALBUTEROL 3 ML AMPUL.NEB INH ×4 (01:06→19:09)
[2024-11-30] MEDS: LEVOTHYROXINE 200 MCG TABLET GT (05:26)
[2024-11-30] MEDS: DEX/HYPRO/GLY ARTIFICAL TEARS 225 DROP/15 ML BTL BOTH EYES ×2 (08:16→20:30)
[2024-11-30] MEDS: CLOPIDOGREL BISULFATE 75 MG TABLET GT (08:16)
[2024-11-30] MEDS: APIXABAN 5 MG TABLET GT ×2 (08:16→20:30)
[2024-11-30] MEDS: CHOLECALCIFEROL (VITAMIN D3) 25 MCG TABLET GT (08:16)
[2024-11-30] MEDS: AMIODARONE 200 MG TABLET 400 MG GT (08:16)
[2024-11-30] MEDS: SENNOSIDES 8.6 MG TABLET GT ×2 (08:17→20:30)
[2024-11-30] MEDS: ATORVASTATIN 40 MG TABLET GT (20:30)
[2024-12-01] VITALS (9 sets, daily range): BP systolic 105–132; BP diastolic 21–69; PULSE 61–88; RESP 18–27; TEMP 36.3–36.6; O2SAT 96–100
[2024-12-01] MEDS: IPRATROPIUM/ALBUTEROL 3 ML AMPUL.NEB INH ×4 (00:27→18:57)
[2024-12-01] MEDS: INSULIN REGULAR, HUMAN 100 UNIT/ML VIAL SC ×2 (05:00→11:56)
[2024-12-01] MEDS: LEVOTHYROXINE 200 MCG TABLET GT (05:34)
--- NOTE | 2024-12-01 05:59 | PC.NURSE ---
Patient trach was found out of place by RAIL CAR WELDER, new trach that was at bedside was inserted by charge nurse. RT was called to check for patency and confirmed placement. Patient's O2 Saturation and vital is being monitored Q4H vitals at this time are BP 144/69 T 97.5 HR 67 RR 19 O2 95, was contacted and made aware of situation. Patient is now sitting up in activity chair with eyes closed and call light within reach. Patient care plan ongoing.
[2024-12-01] MEDS: ACETAMINOPHEN 325 MG TABLET 650 MG GT (07:42)
[2024-12-01] MEDS: CLOPIDOGREL BISULFATE 75 MG TABLET GT (08:04)
[2024-12-01] MEDS: AMIODARONE 200 MG TABLET 400 MG GT (08:04)
[2024-12-01] MEDS: APIXABAN 5 MG TABLET GT ×2 (08:04→20:42)
[2024-12-01] MEDS: CHOLECALCIFEROL (VITAMIN D3) 25 MCG TABLET GT (08:04)
[2024-12-01] MEDS: DEX/HYPRO/GLY ARTIFICAL TEARS 225 DROP/15 ML BTL BOTH EYES ×2 (08:05→20:42)
[2024-12-01] MEDS: SENNOSIDES 8.6 MG TABLET GT ×2 (08:05→20:42)
[2024-12-01] MEDS: ATORVASTATIN 40 MG TABLET GT (20:42)
--- NOTE | 2024-12-01 20:54 | PD.SAPROG ---
Progress Note - SubAcute DIAGNOSIS (1) Acute arterial ischemic stroke, vertebrobasilar, brainstem: Status: Chronic Qualifiers: Laterality: left Qualified Code(s): I63.212 - Cerebral infarction due to unspecified occlusion or stenosis of left vertebral artery; I63.22 - Cerebral infarction due to unspecified occlusion or stenosis of basilar artery (2) Seizures, generalized convulsive: Status: Chronic (3) Chronic respiratory failure: Status: Chronic Qualifiers: Respiratory failure complication: unspecified whether with hypoxia or hypercapnia Qualified Code(s): J96.10 - Chronic respiratory failure, unspecified whether with hypoxia or hypercapnia (4) Altered glucose metabolism due to diabetes: Status: Chronic (5) Encephalopathy: Status: Chronic (6) Decubital ulcer: Status: Chronic (7) G tube feedings: Status: Chronic (8) Tracheostomy in place: Status: Chronic SUBJECTIVE Fever:: none Shortness of Breath:: none Pain:: none OBJECTIVE Most recent vital signs: Last Vital Signs Temp 97.8 F 12/01/24 17:14 Pulse 87 12/01/24 18:57 Resp 18 12/01/24 18:57 BP 108/62 12/01/24 17:14 Pulse Ox 99 12/01/24 18:57 O2 Del Method Blow-by 12/01/24 06:00 O2 Flow Rate 6 12/01/24 18:57 FiO2 28 12/01/24 18:57 Speech:: mouths words (sometimes) Answers questions:: sometimes (mostly by gestures) Respiratory:: lungs clear Cardiovascular: RRR Abdomen: soft Tracheostomy:: to blow by Feeding per:: G tube ASSESSMENT & PLAN Assessment: Pt seems to be fairly stable with all above diagnosis and with limited /guarded prognosis for recovery to independent living and needs all support. Family supportive Denies any pain. VSS 11-11-24 Met with family in pt's room and updated them as well as answered all questions. Reiterated limited prognosis for independent living. Neurology input on prognostic outlook and medication review followed. Repeat CT head ordered by neurologist was done and results discussed with the Neurologist who confirmed stable changes and recommended no change on medicine. This was updated with the family today the No new issues Plan: Full support medical/nutritional and emotional towards maintaining some quality of life
[2024-12-02] VITALS (9 sets, daily range): BP systolic 111–134; BP diastolic 52–68; PULSE 54–79; RESP 18–22; TEMP 36.1–36.6; O2SAT 95–99
[2024-12-02] MEDS: IPRATROPIUM/ALBUTEROL 3 ML AMPUL.NEB INH ×4 (00:58→18:51)
[2024-12-02] MEDS: LEVOTHYROXINE 200 MCG TABLET GT (05:52)
[2024-12-02] MEDS: AMIODARONE 200 MG TABLET 400 MG GT (08:12)
[2024-12-02] MEDS: CLOPIDOGREL BISULFATE 75 MG TABLET GT (08:13)
[2024-12-02] MEDS: APIXABAN 5 MG TABLET GT ×2 (08:13→21:00)
[2024-12-02] MEDS: SENNOSIDES 8.6 MG TABLET GT ×2 (08:13→21:01)
[2024-12-02] MEDS: CHOLECALCIFEROL (VITAMIN D3) 25 MCG TABLET GT (08:13)
[2024-12-02] MEDS: DEX/HYPRO/GLY ARTIFICAL TEARS 225 DROP/15 ML BTL BOTH EYES ×2 (08:13→21:01)
[2024-12-02] MEDS: BISACODYL 10 MG SUPP.RECT PR (11:00)
[2024-12-02] MEDS: INSULIN REGULAR, HUMAN 100 UNIT/ML VIAL SC ×3 (12:09→16:55)
--- NOTE | 2024-12-02 13:41 | PCS.ST ---
Pt pulled out trach tube today. RN recommended not to put on the passy saul valve today. ST tx deferred for tomorrow.
--- NOTE | 2024-12-02 13:50 | PC.NURSE ---
RT went to the room and found out trach was out, RT put a new trach in resident tolerated well, . made aware resident will be in Q4 v/S for 24hrs and we will continue to monitor. family was notified they are here to visit.
--- NOTE | 2024-12-02 18:21 | PC.NURSE ---
At 1310 RT reported resident has pulled his trache tube out. # 7 portex trache tube replaced without any difficulties. Vital signs obtained as follow 97.6, 80, 18, 132/76 SP02 98% @ 6L 28% blow-by. Minimal blood tinge secretions noticed @ this time. No s/s of any pain or discomfort. Family made aware visiting at this time. Continue to monitor VS Q 4 hrs x24 hrs per protocol. Call light within reach.
[2024-12-02] MEDS: ATORVASTATIN 40 MG TABLET GT (21:00)
[2024-12-03] VITALS (9 sets, daily range): BP systolic 111–129; BP diastolic 56–72; PULSE 61–74; RESP 18–20; TEMP 36.6–36.9; O2SAT 96–99
[2024-12-03] MEDS: IPRATROPIUM/ALBUTEROL 3 ML AMPUL.NEB INH ×4 (00:44→19:28)
[2024-12-03] MEDS: INSULIN REGULAR, HUMAN 100 UNIT/ML VIAL SC ×2 (05:53→11:32)
[2024-12-03] MEDS: LEVOTHYROXINE 200 MCG TABLET GT (05:54)
[2024-12-03] MEDS: AMIODARONE 200 MG TABLET 400 MG GT (08:36)
[2024-12-03] MEDS: SENNOSIDES 8.6 MG TABLET GT ×2 (08:37→20:42)
[2024-12-03] MEDS: APIXABAN 5 MG TABLET GT ×2 (08:37→20:42)
[2024-12-03] MEDS: CLOPIDOGREL BISULFATE 75 MG TABLET GT (08:37)
[2024-12-03] MEDS: CHOLECALCIFEROL (VITAMIN D3) 25 MCG TABLET GT (08:37)
[2024-12-03] MEDS: DEX/HYPRO/GLY ARTIFICAL TEARS 225 DROP/15 ML BTL BOTH EYES ×2 (08:37→20:42)
[2024-12-03] MEDS: ATORVASTATIN 40 MG TABLET GT (20:42)
[2024-12-04] VITALS (10 sets, daily range): BP systolic 109–126; BP diastolic 58–73; PULSE 58–76; RESP 18–22; TEMP 36.2–36.4; O2SAT 96–99
[2024-12-04] MEDS: IPRATROPIUM/ALBUTEROL 3 ML AMPUL.NEB INH ×4 (01:59→16:55)
[2024-12-04] MEDS: INSULIN REGULAR, HUMAN 100 UNIT/ML VIAL SC ×2 (05:33→17:37)
[2024-12-04] MEDS: LEVOTHYROXINE 200 MCG TABLET GT (06:02)
[2024-12-04] MEDS: AMIODARONE 200 MG TABLET 400 MG GT (08:36)
[2024-12-04] MEDS: CHOLECALCIFEROL (VITAMIN D3) 25 MCG TABLET GT (08:37)
[2024-12-04] MEDS: SENNOSIDES 8.6 MG TABLET GT ×2 (08:37→21:29)
[2024-12-04] MEDS: APIXABAN 5 MG TABLET GT ×2 (08:37→21:29)
[2024-12-04] MEDS: DEX/HYPRO/GLY ARTIFICAL TEARS 225 DROP/15 ML BTL BOTH EYES ×2 (08:37→21:29)
[2024-12-04] MEDS: CLOPIDOGREL BISULFATE 75 MG TABLET GT (08:37)
[2024-12-04] MEDS: MAGNESIUM HYDROXIDE 30 ML ORAL SUSP ML GT (21:05)
[2024-12-04] MEDS: ATORVASTATIN 40 MG TABLET GT (21:29)
[2024-12-05] VITALS (9 sets, daily range): BP systolic 115–141; BP diastolic 63–87; PULSE 64–96; RESP 17–20; TEMP 36.1–36.6; O2SAT 95–99; BMI 12.0
[2024-12-05] MEDS: INSULIN REGULAR, HUMAN 100 UNIT/ML VIAL SC ×3 (00:10→11:50)
--- NOTE | 2024-12-05 00:30 | PC.NURSE ---
while staffs doing care. noted trach was out. immediately notified RT. after RT re-inserted trach, charge nurse asked resident what happened. resident admitted he intentionally pulled the trach out. charge nurse educate resident the risk and importance of keeping the trach. resident express fully understand. will endorse to next shift.
[2024-12-05] MEDS: IPRATROPIUM/ALBUTEROL 3 ML AMPUL.NEB INH ×4 (00:49→18:28)
--- NOTE | 2024-12-05 01:08 | PC.NURSE ---
after the trach re-insertion. check resident no s/s of distress and discomfort noted, O2 sat 98% at this time. will continue to monitor.
[2024-12-05] MEDS: LEVOTHYROXINE 200 MCG TABLET GT (05:29)
[2024-12-05] MEDS: APIXABAN 5 MG TABLET GT ×2 (08:04→20:52)
[2024-12-05] MEDS: CHOLECALCIFEROL (VITAMIN D3) 25 MCG TABLET GT (08:04)
[2024-12-05] MEDS: AMIODARONE 200 MG TABLET 400 MG GT (08:04)
[2024-12-05] MEDS: CLOPIDOGREL BISULFATE 75 MG TABLET GT (08:05)
[2024-12-05] MEDS: DEX/HYPRO/GLY ARTIFICAL TEARS 225 DROP/15 ML BTL BOTH EYES ×2 (08:05→20:53)
[2024-12-05] MEDS: SENNOSIDES 8.6 MG TABLET GT ×2 (08:05→20:52)
[2024-12-05] MEDS: BISACODYL 10 MG SUPP.RECT PR (14:25)
--- NOTE | 2024-12-05 15:10 | PD.SAPROG ---
Progress Note - SubAcute DIAGNOSIS (1) Acute arterial ischemic stroke, vertebrobasilar, brainstem: Status: Chronic Qualifiers: Laterality: left Qualified Code(s): I63.212 - Cerebral infarction due to unspecified occlusion or stenosis of left vertebral artery; I63.22 - Cerebral infarction due to unspecified occlusion or stenosis of basilar artery (2) Seizures, generalized convulsive: Status: Chronic (3) Chronic respiratory failure: Status: Chronic Qualifiers: Respiratory failure complication: unspecified whether with hypoxia or hypercapnia Qualified Code(s): J96.10 - Chronic respiratory failure, unspecified whether with hypoxia or hypercapnia (4) Altered glucose metabolism due to diabetes: Status: Chronic (5) Encephalopathy: Status: Chronic (6) Decubital ulcer: Status: Chronic (7) G tube feedings: Status: Chronic (8) Tracheostomy in place: Status: Chronic SUBJECTIVE Fever:: none Shortness of Breath:: none Pain:: none OBJECTIVE Most recent vital signs: Last Vital Signs Temp 97.8 F 12/05/24 12:00 Pulse 71 12/05/24 12:59 Resp 18 12/05/24 12:59 BP 115/69 12/05/24 12:00 Pulse Ox 99 12/05/24 12:59 O2 Del Method Blow-by 12/04/24 06:00 O2 Flow Rate 6 12/05/24 12:59 FiO2 28 12/05/24 12:59 Speech:: mouths words (sometimes) Answers questions:: sometimes (mostly by gestures) Respiratory:: lungs clear Cardiovascular: RRR Abdomen: soft Tracheostomy:: to blow by Feeding per:: G tube ASSESSMENT & PLAN Assessment: Pt seems to be fairly stable with all above diagnosis and with limited /guarded prognosis for recovery to independent living and needs all support. Family supportive Denies any pain. VSS 11-11-24 Met with family in pt's room and updated them as well as answered all questions. Reiterated limited prognosis for independent living. Neurology input on prognostic outlook and medication review followed. Repeat CT head ordered by neurologist was done and results discussed with the Neurologist who confirmed stable changes and recommended no change on medicine. This was updated with the family the No new issues , VSS Plan: Full support medical/nutritional and emotional towards maintaining some quality of life
--- NOTE | 2024-12-05 15:33 | PC.SS ---
Room visit: Resident is laying in bed with head of the bed elevated with call light properly placed with no signs of distress. Resident is well groomed with call light properly placed. Resident has no changes in care and condition, to remain in subacute care and will have all subacute care needs met by staff. SSD will continue to make daily contact with resident and monitor for changes in mood and behavior.
[2024-12-05] MEDS: ACETAMINOPHEN 325 MG TABLET 650 MG GT (16:36)
[2024-12-05] MEDS: ATORVASTATIN 40 MG TABLET GT (20:52)
[2024-12-06] VITALS (9 sets, daily range): BP systolic 114–125; BP diastolic 49–72; PULSE 60–77; RESP 15–26; TEMP 36.1–36.7; O2SAT 95–99
[2024-12-06] MEDS: IPRATROPIUM/ALBUTEROL 3 ML AMPUL.NEB INH ×4 (00:25→18:34)
[2024-12-06] MEDS: LEVOTHYROXINE 200 MCG TABLET GT (05:23)
[2024-12-06] MEDS: INSULIN REGULAR, HUMAN 100 UNIT/ML VIAL SC ×3 (05:31→23:56)
[2024-12-06] MEDS: CHOLECALCIFEROL (VITAMIN D3) 25 MCG TABLET GT (08:00)
[2024-12-06] MEDS: AMIODARONE 200 MG TABLET 400 MG GT (08:00)
[2024-12-06] MEDS: APIXABAN 5 MG TABLET GT ×2 (08:00→20:42)
[2024-12-06] MEDS: CLOPIDOGREL BISULFATE 75 MG TABLET GT (08:01)
[2024-12-06] MEDS: DEX/HYPRO/GLY ARTIFICAL TEARS 225 DROP/15 ML BTL BOTH EYES ×2 (08:01→20:42)
[2024-12-06] MEDS: SENNOSIDES 8.6 MG TABLET GT ×2 (08:01→20:42)
[2024-12-06] MEDS: ATORVASTATIN 40 MG TABLET GT (20:42)
[2024-12-06] MEDS: ACETAMINOPHEN 325 MG TABLET 650 MG GT (21:05)
[2024-12-07] VITALS (9 sets, daily range): BP systolic 112–138; BP diastolic 61–77; PULSE 60–76; RESP 18–20; TEMP 36.4–37; O2SAT 95–99
[2024-12-07] MEDS: IPRATROPIUM/ALBUTEROL 3 ML AMPUL.NEB INH ×4 (00:06→18:38)
[2024-12-07] MEDS: INSULIN REGULAR, HUMAN 100 UNIT/ML VIAL SC ×3 (05:22→17:26)
[2024-12-07] MEDS: LEVOTHYROXINE 200 MCG TABLET GT (05:22)
[2024-12-07] MEDS: APIXABAN 5 MG TABLET GT ×2 (08:11→20:52)
[2024-12-07] MEDS: DEX/HYPRO/GLY ARTIFICAL TEARS 225 DROP/15 ML BTL BOTH EYES ×2 (08:11→20:52)
[2024-12-07] MEDS: SENNOSIDES 8.6 MG TABLET GT ×2 (08:11→20:51)
[2024-12-07] MEDS: CHOLECALCIFEROL (VITAMIN D3) 25 MCG TABLET GT (08:11)
[2024-12-07] MEDS: AMIODARONE 200 MG TABLET 400 MG GT (08:11)
[2024-12-07] MEDS: CLOPIDOGREL BISULFATE 75 MG TABLET GT (08:11)
[2024-12-07] MEDS: ACETAMINOPHEN 325 MG TABLET 650 MG GT (19:31)
[2024-12-07] MEDS: ATORVASTATIN 40 MG TABLET GT (20:52)
[2024-12-08] VITALS (9 sets, daily range): BP systolic 116–147; BP diastolic 62–69; PULSE 60–82; RESP 18–20; TEMP 36.3–37; O2SAT 95–100
[2024-12-08] MEDS: INSULIN REGULAR, HUMAN 100 UNIT/ML VIAL SC ×5 (00:12→23:15)
[2024-12-08] MEDS: IPRATROPIUM/ALBUTEROL 3 ML AMPUL.NEB INH ×4 (00:47→19:34)
[2024-12-08] MEDS: LEVOTHYROXINE 200 MCG TABLET GT (05:14)
[2024-12-08] MEDS: AMIODARONE 200 MG TABLET 400 MG GT (08:06)
[2024-12-08] MEDS: APIXABAN 5 MG TABLET GT ×2 (08:07→21:21)
[2024-12-08] MEDS: SENNOSIDES 8.6 MG TABLET GT ×2 (08:09→21:22)
[2024-12-08] MEDS: CHOLECALCIFEROL (VITAMIN D3) 25 MCG TABLET GT (08:09)
[2024-12-08] MEDS: DEX/HYPRO/GLY ARTIFICAL TEARS 225 DROP/15 ML BTL BOTH EYES ×2 (08:09→21:22)
[2024-12-08] MEDS: CLOPIDOGREL BISULFATE 75 MG TABLET GT (08:09)
--- NOTE | 2024-12-08 13:32 | PC.NURSE ---
Resident scheduled for Barium swallow evaluation in radiology done by Speech therapist. resident transported via bed by YARA Jiménez and JARON Camarena.
--- NOTE | 2024-12-08 14:24 | PC.NURSE ---
Returned from XR video swallow study.
[2024-12-08] MEDS: MAGNESIUM HYDROXIDE 30 ML ORAL SUSP ML GT (19:03)
[2024-12-08] MEDS: ATORVASTATIN 40 MG TABLET GT (21:22)
[2024-12-08] MEDS: ACETAMINOPHEN 325 MG TABLET 650 MG GT (21:23)
[2024-12-09] VITALS (9 sets, daily range): BP systolic 116–180; BP diastolic 62–75; PULSE 19–94; RESP 16–22; TEMP 36.2–36.9; O2SAT 94–100
[2024-12-09] MEDS: IPRATROPIUM/ALBUTEROL 3 ML AMPUL.NEB INH ×4 (00:18→16:35)
[2024-12-09] MEDS: BISACODYL 10 MG SUPP.RECT PR (02:20)
[2024-12-09] MEDS: LEVOTHYROXINE 200 MCG TABLET GT (05:26)
[2024-12-09] MEDS: INSULIN REGULAR, HUMAN 100 UNIT/ML VIAL SC ×2 (05:27→11:57)
[2024-12-09] MEDS: DEX/HYPRO/GLY ARTIFICAL TEARS 225 DROP/15 ML BTL BOTH EYES ×2 (08:03→20:39)
[2024-12-09] MEDS: APIXABAN 5 MG TABLET GT ×2 (08:03→20:39)
[2024-12-09] MEDS: AMIODARONE 200 MG TABLET 400 MG GT (08:03)
[2024-12-09] MEDS: SENNOSIDES 8.6 MG TABLET GT ×2 (08:03→20:39)
[2024-12-09] MEDS: CHOLECALCIFEROL (VITAMIN D3) 25 MCG TABLET GT (08:03)
[2024-12-09] MEDS: CLOPIDOGREL BISULFATE 75 MG TABLET GT (08:03)
[2024-12-09] MEDS: ATORVASTATIN 40 MG TABLET GT (20:39)
--- NOTE | 2024-12-09 22:05 | PD.SAPROG ---
Progress Note - SubAcute DIAGNOSIS (1) Acute arterial ischemic stroke, vertebrobasilar, brainstem: Status: Chronic Qualifiers: Laterality: left Qualified Code(s): I63.212 - Cerebral infarction due to unspecified occlusion or stenosis of left vertebral artery; I63.22 - Cerebral infarction due to unspecified occlusion or stenosis of basilar artery (2) Seizures, generalized convulsive: Status: Chronic (3) Chronic respiratory failure: Status: Chronic Qualifiers: Respiratory failure complication: unspecified whether with hypoxia or hypercapnia Qualified Code(s): J96.10 - Chronic respiratory failure, unspecified whether with hypoxia or hypercapnia (4) Altered glucose metabolism due to diabetes: Status: Chronic (5) Encephalopathy: Status: Chronic (6) Decubital ulcer: Status: Chronic (7) G tube feedings: Status: Chronic (8) Tracheostomy in place: Status: Chronic SUBJECTIVE Fever:: none Shortness of Breath:: none Pain:: none OBJECTIVE Most recent vital signs: Last Vital Signs Temp 97.8 F 12/09/24 18:00 Pulse 81 12/09/24 18:00 Resp 18 12/09/24 18:00 BP 137/68 H 12/09/24 18:00 Pulse Ox 94 L 12/09/24 18:00 O2 Del Method Blow-by 12/09/24 06:00 O2 Flow Rate 6 12/09/24 16:36 FiO2 28 12/09/24 16:36 Speech:: mouths words (sometimes) Answers questions:: sometimes (mostly by gestures) Respiratory:: lungs clear Cardiovascular: RRR Abdomen: soft Tracheostomy:: to blow by Feeding per:: G tube ASSESSMENT & PLAN Assessment: Pt seems to be fairly stable with all above diagnosis and with limited /guarded prognosis for recovery to independent living and needs all support. Family supportive Denies any pain. VSS 11-11-24 Met with family in pt's room and updated them as well as answered all questions. Reiterated limited prognosis for independent living. Neurology input on prognostic outlook and medication review followed. Repeat CT head ordered by neurologist was done and results discussed with the Neurologist who confirmed stable changes and recommended no change on medicine. This was updated with the family the No new issues , Talked with family at bedside and updated them. VSS Plan: Full support medical/nutritional and emotional towards maintaining some quality of life
[2024-12-10] VITALS (9 sets, daily range): BP systolic 114–144; BP diastolic 65–73; PULSE 64–86; RESP 16–24; TEMP 36.3–37.3; O2SAT 94–100
[2024-12-10] MEDS: IPRATROPIUM/ALBUTEROL 3 ML AMPUL.NEB INH ×4 (00:08→19:47)
[2024-12-10] MEDS: INSULIN REGULAR, HUMAN 100 UNIT/ML VIAL SC ×2 (00:09→05:52)
[2024-12-10] MEDS: LEVOTHYROXINE 200 MCG TABLET GT (05:52)
[2024-12-10] MEDS: APIXABAN 5 MG TABLET GT ×2 (09:19→20:40)
[2024-12-10] MEDS: AMIODARONE 200 MG TABLET 400 MG GT (09:19)
[2024-12-10] MEDS: DEX/HYPRO/GLY ARTIFICAL TEARS 225 DROP/15 ML BTL BOTH EYES ×2 (09:19→20:40)
[2024-12-10] MEDS: CLOPIDOGREL BISULFATE 75 MG TABLET GT (09:19)
[2024-12-10] MEDS: CHOLECALCIFEROL (VITAMIN D3) 25 MCG TABLET GT (09:19)
[2024-12-10] MEDS: SENNOSIDES 8.6 MG TABLET GT ×2 (09:20→20:41)
[2024-12-10] MEDS: ATORVASTATIN 40 MG TABLET GT (20:40)
[2024-12-11] VITALS (8 sets, daily range): BP systolic 106–139; BP diastolic 64–80; PULSE 53–86; RESP 18–20; TEMP 36.1–36.9; O2SAT 97–99
[2024-12-11] MEDS: INSULIN REGULAR, HUMAN 100 UNIT/ML VIAL SC ×2 (05:33→11:26)
[2024-12-11] MEDS: LEVOTHYROXINE 200 MCG TABLET GT (05:34)
[2024-12-11] MEDS: IPRATROPIUM/ALBUTEROL 3 ML AMPUL.NEB INH ×4 (07:02→18:49)
[2024-12-11] MEDS: AMIODARONE 200 MG TABLET 400 MG GT (08:01)
[2024-12-11] MEDS: APIXABAN 5 MG TABLET GT ×2 (08:02→21:22)
[2024-12-11] MEDS: CLOPIDOGREL BISULFATE 75 MG TABLET GT (08:03)
[2024-12-11] MEDS: CHOLECALCIFEROL (VITAMIN D3) 25 MCG TABLET GT (08:03)
[2024-12-11] MEDS: DEX/HYPRO/GLY ARTIFICAL TEARS 225 DROP/15 ML BTL BOTH EYES ×2 (08:03→21:20)
[2024-12-11] MEDS: SENNOSIDES 8.6 MG TABLET GT ×2 (08:04→21:23)
--- NOTE | 2024-12-11 10:41 | PC.SS ---
Resident received Ashes for albert Sunday provided by spiritual care team with door to door fundraising collector. RP and resident have given permission for ashes.
[2024-12-11] MEDS: MAGNESIUM HYDROXIDE 30 ML ORAL SUSP ML GT (21:23)
[2024-12-11] MEDS: ATORVASTATIN 40 MG TABLET GT (21:23)
[2024-12-12] VITALS: BP 112/67; PULSE 64; RESP 20; TEMP 36.5
[2024-12-12] MEDS: IPRATROPIUM/ALBUTEROL 3 ML AMPUL.NEB INH ×4 (00:16→16:54)
[2024-12-12 02:17] VITALS: PULSE 64; PULSE 69; RESP 18; O2SAT 98
[2024-12-12] MEDS: INSULIN REGULAR, HUMAN 100 UNIT/ML VIAL SC ×4 (05:06→23:53)
[2024-12-12] MEDS: LEVOTHYROXINE 200 MCG TABLET GT (05:07)
[2024-12-12 05:45] VITALS: BP 124/69; PULSE 71; RESP 18; TEMP 36.4; O2SAT 97
[2024-12-12 06:47] VITALS: PULSE 67; RESP 18; O2SAT 97; O2SAT 99
[2024-12-12 09:09] VITALS: BP 114/68; PULSE 60
[2024-12-12] MEDS: AMIODARONE 200 MG TABLET 400 MG GT (09:09)
[2024-12-12] MEDS: CHOLECALCIFEROL (VITAMIN D3) 25 MCG TABLET GT (09:12)
[2024-12-12] MEDS: DEX/HYPRO/GLY ARTIFICAL TEARS 225 DROP/15 ML BTL BOTH EYES ×2 (09:13→20:56)
[2024-12-12] MEDS: SENNOSIDES 8.6 MG TABLET GT ×2 (09:13→20:55)
--- NOTE | 2024-12-12 09:32 | PCS.ST ---
MBS study performed on 12/08, Dx. Pt presents severe oropharygeal dysphagia characterized by poor bolus control and immediate silent aspiration. ST will not continue swallow tx due to poor progress and high risk of aspiration. However, a speech evaluation for speaking valve was completed on 12/11, ST will provide speech therapy (3xw for 2 weeks) for communication using PMV.
[2024-12-12] MEDS: APIXABAN 5 MG TABLET GT ×2 (09:52→20:56)
[2024-12-12] MEDS: CLOPIDOGREL BISULFATE 75 MG TABLET GT (09:52)
--- NOTE | 2024-12-12 11:41 | PC.NURSE ---
Visit resident in activities ask resident how he was he stated good he seems comfortable was enjoying washing TV
--- NOTE | 2024-12-12 11:57 | PC.SS ---
Resident is seen in activities via jose daniel chair. Resident has no changes in care or condition, he remains on blow by with trach in place and GT for medication and nutrition. His and son are at bedside daily and his decision maker. Resident will remain in current care and will have all subacute care needs met by staff. This SSD will continue to make contact and monitor for changes in mood and behavior.
[2024-12-12 16:54] VITALS: PULSE 66; RESP 18; O2SAT 96; O2SAT 99
[2024-12-12] MEDS: ATORVASTATIN 40 MG TABLET GT (20:56)
[2024-12-12] MEDS: MAGNESIUM HYDROXIDE 30 ML ORAL SUSP ML GT (20:58)
[2024-12-13] VITALS (9 sets, daily range): BP systolic 109–144; BP diastolic 70–82; PULSE 64–92; RESP 16–22; TEMP 36.1–36.6; O2SAT 95–99
[2024-12-13] MEDS: IPRATROPIUM/ALBUTEROL 3 ML AMPUL.NEB INH ×4 (00:33→19:50)
[2024-12-13] MEDS: ACETAMINOPHEN 325 MG TABLET 650 MG GT ×2 (05:28→23:46)
[2024-12-13] MEDS: LEVOTHYROXINE 200 MCG TABLET GT (05:28)
[2024-12-13] MEDS: CHOLECALCIFEROL (VITAMIN D3) 25 MCG TABLET GT (09:50)
[2024-12-13] MEDS: APIXABAN 5 MG TABLET GT ×2 (09:50→20:37)
[2024-12-13] MEDS: AMIODARONE 200 MG TABLET 400 MG GT (09:50)
[2024-12-13] MEDS: CLOPIDOGREL BISULFATE 75 MG TABLET GT (09:50)
[2024-12-13] MEDS: SENNOSIDES 8.6 MG TABLET GT ×2 (09:51→20:37)
[2024-12-13] MEDS: DEX/HYPRO/GLY ARTIFICAL TEARS 225 DROP/15 ML BTL BOTH EYES ×2 (09:51→20:37)
[2024-12-13] MEDS: INSULIN REGULAR, HUMAN 100 UNIT/ML VIAL SC (12:02)
--- NOTE | 2024-12-13 19:25 | ESPR_ITS ---
Progress Note - SubAcute DIAGNOSIS (1) Acute arterial ischemic stroke, vertebrobasilar, brainstem: Status: Chronic Qualifiers: Laterality: left Qualified Code(s): I63.212 - Cerebral infarction due to unspecified occlusion or stenosis of left vertebral artery; I63.22 - Cerebral infarction due to unspecified occlusion or stenosis of basilar artery (2) Seizures, generalized convulsive: Status: Chronic (3) Chronic respiratory failure: Status: Chronic Qualifiers: Respiratory failure complication: unspecified whether with hypoxia or hypercapnia Qualified Code(s): J96.10 - Chronic respiratory failure, unspecified whether with hypoxia or hypercapnia (4) Altered glucose metabolism due to diabetes: Status: Chronic (5) Encephalopathy: Status: Chronic (6) Decubital ulcer: Status: Chronic (7) G tube feedings: Status: Chronic (8) Tracheostomy in place: Status: Chronic SUBJECTIVE Fever:: none Shortness of Breath:: none Pain:: none OBJECTIVE Most recent vital signs: Last Vital Signs Temp 97.7 F 12/13/24 17:13 Pulse 79 12/13/24 17:13 Resp 22 H 12/13/24 17:13 BP 131/79 H 12/13/24 17:13 Pulse Ox 98 12/13/24 12:33 O2 Del Method Blow-by 12/11/24 17:55 O2 Flow Rate 6 12/13/24 12:33 FiO2 28 12/13/24 12:33 Speech:: mouths words (sometimes) Answers questions:: sometimes (mostly by gestures) Respiratory:: lungs clear Cardiovascular: RRR Abdomen: soft Tracheostomy:: to blow by Feeding per:: G tube ASSESSMENT & PLAN Assessment: Pt seems to be fairly stable with all above diagnosis and with limited /guarded prognosis for recovery to independent living and needs all support. Family supportive Denies any pain. VSS 11-11-24 Met with family in pt's room and updated them as well as answered all questions. Reiterated limited prognosis for independent living. Neurology input on prognostic outlook and medication review followed. Repeat CT head ordered by neurologist was done and results discussed with the Neurologist who confirmed stable changes and recommended no change on medicine. This was updated with the family the No new issues , Talked with family at bedside and updated them. VSS. No new i ssues. Plan: Full support medical/nutritional and emotional towards maintaining some quality of life
[2024-12-13] MEDS: ATORVASTATIN 40 MG TABLET GT (20:37)
[2024-12-14] VITALS (10 sets, daily range): BP systolic 116–133; BP diastolic 62–75; PULSE 58–72; RESP 16–20; TEMP 36.2–36.6; O2SAT 94–100
[2024-12-14] MEDS: IPRATROPIUM/ALBUTEROL 3 ML AMPUL.NEB INH ×4 (01:26→19:40)
[2024-12-14] MEDS: INSULIN REGULAR, HUMAN 100 UNIT/ML VIAL SC ×2 (05:32→12:28)
[2024-12-14] MEDS: LEVOTHYROXINE 200 MCG TABLET GT (05:33)
[2024-12-14] MEDS: AMIODARONE 200 MG TABLET 400 MG GT (08:14)
[2024-12-14] MEDS: CHOLECALCIFEROL (VITAMIN D3) 25 MCG TABLET GT (08:15)
[2024-12-14] MEDS: APIXABAN 5 MG TABLET GT ×2 (08:15→21:18)
[2024-12-14] MEDS: DEX/HYPRO/GLY ARTIFICAL TEARS 225 DROP/15 ML BTL BOTH EYES ×2 (08:18→21:18)
[2024-12-14] MEDS: SENNOSIDES 8.6 MG TABLET GT ×2 (08:18→21:19)
[2024-12-14] MEDS: CLOPIDOGREL BISULFATE 75 MG TABLET GT (12:19)
[2024-12-14] MEDS: ATORVASTATIN 40 MG TABLET GT (21:18)
[2024-12-14] MEDS: ACETAMINOPHEN 325 MG TABLET 650 MG GT (21:19)
[2024-12-15] VITALS (8 sets, daily range): BP systolic 115–124; BP diastolic 64–70; PULSE 56–70; RESP 16–22; TEMP 36.3–37.1; O2SAT 96–100
[2024-12-15] MEDS: IPRATROPIUM/ALBUTEROL 3 ML AMPUL.NEB INH ×4 (01:09→18:44)
[2024-12-15] MEDS: LEVOTHYROXINE 200 MCG TABLET GT (05:36)
[2024-12-15] MEDS: AMIODARONE 200 MG TABLET 400 MG GT (08:03)
[2024-12-15] MEDS: APIXABAN 5 MG TABLET GT ×2 (08:04→21:01)
[2024-12-15] MEDS: CLOPIDOGREL BISULFATE 75 MG TABLET GT (08:04)
[2024-12-15] MEDS: CHOLECALCIFEROL (VITAMIN D3) 25 MCG TABLET GT (08:04)
[2024-12-15] MEDS: SENNOSIDES 8.6 MG TABLET GT ×2 (08:05→21:02)
[2024-12-15] MEDS: DEX/HYPRO/GLY ARTIFICAL TEARS 225 DROP/15 ML BTL BOTH EYES ×2 (08:05→21:02)
[2024-12-15] MEDS: INSULIN REGULAR, HUMAN 100 UNIT/ML VIAL SC (11:23)
[2024-12-15] MEDS: ACETAMINOPHEN 325 MG TABLET 650 MG GT (14:15)
[2024-12-15] MEDS: MAGNESIUM HYDROXIDE 30 ML ORAL SUSP ML GT (18:15)
[2024-12-15] MEDS: ATORVASTATIN 40 MG TABLET GT (21:02)
[2024-12-16] VITALS (9 sets, daily range): BP systolic 116–135; BP diastolic 53–74; PULSE 59–81; RESP 16–20; TEMP 36.5–37.1; O2SAT 96–99
[2024-12-16] MEDS: IPRATROPIUM/ALBUTEROL 3 ML AMPUL.NEB INH ×4 (01:49→21:28)
[2024-12-16] MEDS: LEVOTHYROXINE 200 MCG TABLET GT (05:45)
[2024-12-16] MEDS: INSULIN REGULAR, HUMAN 100 UNIT/ML VIAL SC ×3 (05:45→18:05)
[2024-12-16] MEDS: DEX/HYPRO/GLY ARTIFICAL TEARS 225 DROP/15 ML BTL BOTH EYES ×2 (09:34→21:16)
[2024-12-16] MEDS: APIXABAN 5 MG TABLET GT ×2 (09:34→21:15)
[2024-12-16] MEDS: AMIODARONE 200 MG TABLET 400 MG GT (09:34)
[2024-12-16] MEDS: CLOPIDOGREL BISULFATE 75 MG TABLET GT (09:34)
[2024-12-16] MEDS: CHOLECALCIFEROL (VITAMIN D3) 25 MCG TABLET GT (09:34)
[2024-12-16] MEDS: SENNOSIDES 8.6 MG TABLET GT ×2 (09:35→21:16)
[2024-12-16] MEDS: BISACODYL 10 MG SUPP.RECT PR (16:45)
[2024-12-16] MEDS: ATORVASTATIN 40 MG TABLET GT (21:16)
[2024-12-17] VITALS (7 sets, daily range): BP systolic 103–126; BP diastolic 52–71; PULSE 52–84; RESP 16–20; TEMP 36.3; O2SAT 94–99
[2024-12-17] MEDS: IPRATROPIUM/ALBUTEROL 3 ML AMPUL.NEB INH ×4 (01:51→19:22)
[2024-12-17] MEDS: LEVOTHYROXINE 200 MCG TABLET GT (05:41)
[2024-12-17] MEDS: INSULIN REGULAR, HUMAN 100 UNIT/ML VIAL SC ×2 (05:42→11:31)
[2024-12-17] MEDS: APIXABAN 5 MG TABLET GT ×2 (10:12→20:53)
[2024-12-17] MEDS: CHOLECALCIFEROL (VITAMIN D3) 25 MCG TABLET GT (10:12)
[2024-12-17] MEDS: AMIODARONE 200 MG TABLET 400 MG GT (10:12)
[2024-12-17] MEDS: DEX/HYPRO/GLY ARTIFICAL TEARS 225 DROP/15 ML BTL BOTH EYES ×2 (10:13→20:53)
[2024-12-17] MEDS: CLOPIDOGREL BISULFATE 75 MG TABLET GT (10:13)
[2024-12-17] MEDS: SENNOSIDES 8.6 MG TABLET GT ×2 (10:13→20:52)
[2024-12-17] MEDS: MAGNESIUM HYDROXIDE 30 ML ORAL SUSP ML GT (11:26)
--- NOTE | 2024-12-17 12:25 | ESPR_ITS ---
Progress Note - SubAcute DIAGNOSIS (1) Acute arterial ischemic stroke, vertebrobasilar, brainstem: Status: Chronic Qualifiers: Laterality: left Qualified Code(s): I63.212 - Cerebral infarction due to unspecified occlusion or stenosis of left vertebral artery; I63.22 - Cerebral infarction due to unspecified occlusion or stenosis of basilar artery (2) Seizures, generalized convulsive: Status: Chronic (3) Chronic respiratory failure: Status: Chronic Qualifiers: Respiratory failure complication: unspecified whether with hypoxia or hypercapnia Qualified Code(s): J96.10 - Chronic respiratory failure, unspecified whether with hypoxia or hypercapnia (4) Altered glucose metabolism due to diabetes: Status: Chronic (5) Encephalopathy: Status: Chronic (6) Decubital ulcer: Status: Chronic (7) G tube feedings: Status: Chronic (8) Tracheostomy in place: Status: Chronic SUBJECTIVE Fever:: none Shortness of Breath:: none Pain:: none OBJECTIVE Most recent vital signs: Last Vital Signs Temp 97.5 F 12/21/24 06:00 Pulse 62 12/21/24 18:33 Resp 18 12/21/24 18:33 BP 106/72 12/21/24 08:59 Pulse Ox 99 12/21/24 18:33 O2 Del Method Blow-by 12/18/24 05:47 O2 Flow Rate 6 12/21/24 18:33 FiO2 28 12/21/24 18:33 Speech:: mouths words (sometimes) Answers questions:: sometimes (mostly by gestures) Respiratory:: lungs clear Cardiovascular: RRR Abdomen: soft Tracheostomy:: to blow by Feeding per:: G tube ASSESSMENT & PLAN Assessment: Pt seems to be fairly stable with all above diagnosis and with limited /guarded prognosis for recovery to independent living and needs all support. Family supportive Denies any pain. VSS 11-11-24 Met with family in pt's room and updated them as well as answered all questions. Reiterated limited prognosis for independent living. Neurology input on prognostic outlook and medication review followed. Repeat CT head ordered by neurologist was done and results discussed with the Neurologist who confirmed stable changes and recommended no change on medicine. This was updated with the family the No new issues , Talked with family at bedside and updated them. VSS. No new iss ues. Plan: Full support medical/nutritional and emotional towards maintaining some quality of life
[2024-12-17] MEDS: SODIUM PHOSPHATE,MONO-DIBASIC 133 ML ENEMA PR (20:10)
[2024-12-17] MEDS: ATORVASTATIN 40 MG TABLET GT (20:53)
[2024-12-18] VITALS (11 sets, daily range): BP systolic 118–143; BP diastolic 65–77; PULSE 62–82; RESP 18–20; TEMP 36.2–37.2; O2SAT 94–100
[2024-12-18] MEDS: IPRATROPIUM/ALBUTEROL 3 ML AMPUL.NEB INH ×4 (00:24→21:15)
--- NOTE | 2024-12-18 00:28 | PC.RT ---
per nurse RT needed immediately in room due to trach out, went to room immediately to assess pt, noted trach out immediately place a new portex 7.0 without complications, inline suction passed through easy x2, noted pink tinged sputum, auscultated coarse bs, no ditress noted normal RR 20, hr 70, spo2 95%, new trach kit was place at bedside 7.0 portex cuffed .
--- NOTE | 2024-12-18 00:36 | PC.NURSE ---
Addendum entered by Yessenia Dunlap RN 12/18/24 03:46: Per COMPUTED TOMOGRAPHY SCANNER OPERATOR, trach came out while providing care. Original Note: This nurse was summoned to resident room by COMPUTED TOMOGRAPHY SCANNER OPERATOR and ELECTRONEURODIAGNOSTIC TECHNOLOGIST [id number], RT was on the floor and was also summoned to room, resident trach was out, COMPUTED TOMOGRAPHY SCANNER OPERATOR and ELECTRONEURODIAGNOSTIC TECHNOLOGIST noted trach was out during patient care, RT placed a new trach, slight bleeding noted, mittens placed by COMPUTED TOMOGRAPHY SCANNER OPERATOR, made aware, RP made aware, resident in room resting, call light within reach, HOB elevated, no s/s of distress at this time.
[2024-12-18] MEDS: LEVOTHYROXINE 200 MCG TABLET GT (05:26)
[2024-12-18] MEDS: INSULIN REGULAR, HUMAN 100 UNIT/ML VIAL SC ×3 (05:26→17:08)
[2024-12-18] MEDS: AMIODARONE 200 MG TABLET 400 MG GT (09:54)
[2024-12-18] MEDS: CLOPIDOGREL BISULFATE 75 MG TABLET GT (09:55)
[2024-12-18] MEDS: APIXABAN 5 MG TABLET GT ×2 (09:55→20:56)
[2024-12-18] MEDS: DEX/HYPRO/GLY ARTIFICAL TEARS 225 DROP/15 ML BTL BOTH EYES ×2 (09:57→20:56)
[2024-12-18] MEDS: CHOLECALCIFEROL (VITAMIN D3) 25 MCG TABLET GT (09:59)
[2024-12-18] MEDS: SENNOSIDES 8.6 MG TABLET GT ×2 (09:59→20:55)
[2024-12-18] MEDS: ATORVASTATIN 40 MG TABLET GT (20:56)
[2024-12-19] VITALS (10 sets, daily range): BP systolic 117–141; BP diastolic 60–83; PULSE 56–76; RESP 18–20; TEMP 36.3–37.2; O2SAT 96–99; BMI 12.0
[2024-12-19] MEDS: IPRATROPIUM/ALBUTEROL 3 ML AMPUL.NEB INH ×4 (01:13→18:30)
[2024-12-19] MEDS: LEVOTHYROXINE 200 MCG TABLET GT (05:07)
[2024-12-19] MEDS: INSULIN REGULAR, HUMAN 100 UNIT/ML VIAL SC ×2 (05:34→12:19)
[2024-12-19] MEDS: AMIODARONE 200 MG TABLET 400 MG GT (08:39)
[2024-12-19] MEDS: APIXABAN 5 MG TABLET GT ×2 (08:39→21:08)
[2024-12-19] MEDS: CLOPIDOGREL BISULFATE 75 MG TABLET GT (08:41)
[2024-12-19] MEDS: SENNOSIDES 8.6 MG TABLET GT ×2 (08:41→21:09)
[2024-12-19] MEDS: CHOLECALCIFEROL (VITAMIN D3) 25 MCG TABLET GT (08:41)
[2024-12-19] MEDS: DEX/HYPRO/GLY ARTIFICAL TEARS 225 DROP/15 ML BTL BOTH EYES ×2 (08:41→21:09)
--- NOTE | 2024-12-19 14:28 | PC.SS ---
Room visit: Resident is laying in bed with head of the bed elevated with call light properly placed with no signs of distress. Resident has no changes in condition, remains on blow by with trach in place and GT for medication and nutrition. Resident is unable to make needs known, he continues to be represented by his . Resident will remain in current care and will continue to have all subacute care needs met by staff. This SSD will make daily contact with resident and will monitor for changes in mood and behavior
[2024-12-19] MEDS: ATORVASTATIN 40 MG TABLET GT (21:09)
[2024-12-20] VITALS (7 sets, daily range): BP systolic 102–140; BP diastolic 63–82; PULSE 59–71; RESP 16–20; TEMP 36.6; O2SAT 95–99
[2024-12-20] MEDS: IPRATROPIUM/ALBUTEROL 3 ML AMPUL.NEB INH ×4 (00:46→19:28)
[2024-12-20] MEDS: LEVOTHYROXINE 200 MCG TABLET GT (06:02)
--- NOTE | 2024-12-20 06:30 | PC.NURSE ---
Resident has been very resistive when any patient care is being given, also combative. Very hard to turn and change resident. We needed four staff members to change and turn him.
--- NOTE | 2024-12-20 06:44 | PC.NURSE ---
12/19/2024 I was rounding with staff and we went to turn and change the patient. We explained we were turning him towards the door. When staff turned him, he turned to grab me and scratched the right side of my face. Staff put his mitts back on.
[2024-12-20] MEDS: APIXABAN 5 MG TABLET GT ×2 (08:40→21:02)
[2024-12-20] MEDS: AMIODARONE 200 MG TABLET 400 MG GT (08:40)
[2024-12-20] MEDS: CLOPIDOGREL BISULFATE 75 MG TABLET GT (08:41)
[2024-12-20] MEDS: DEX/HYPRO/GLY ARTIFICAL TEARS 225 DROP/15 ML BTL BOTH EYES ×2 (08:41→21:03)
[2024-12-20] MEDS: SENNOSIDES 8.6 MG TABLET GT ×2 (08:44→21:03)
[2024-12-20] MEDS: CHOLECALCIFEROL (VITAMIN D3) 25 MCG TABLET GT (08:44)
[2024-12-20] MEDS: INSULIN REGULAR, HUMAN 100 UNIT/ML VIAL SC (12:41)
[2024-12-20] MEDS: ATORVASTATIN 40 MG TABLET GT (21:03)
[2024-12-20] MEDS: MAGNESIUM HYDROXIDE 30 ML ORAL SUSP ML GT (21:04)
[2024-12-21] VITALS (7 sets, daily range): BP systolic 106–125; BP diastolic 63–72; PULSE 61–81; RESP 16–198; TEMP 36.4–36.8; O2SAT 97–99
[2024-12-21] MEDS: IPRATROPIUM/ALBUTEROL 3 ML AMPUL.NEB INH ×4 (01:05→18:33)
[2024-12-21] MEDS: LEVOTHYROXINE 200 MCG TABLET GT (05:25)
[2024-12-21] MEDS: AMIODARONE 200 MG TABLET 400 MG GT (08:59)
[2024-12-21] MEDS: SENNOSIDES 8.6 MG TABLET GT ×2 (09:00→20:26)
[2024-12-21] MEDS: CHOLECALCIFEROL (VITAMIN D3) 25 MCG TABLET GT (09:00)
[2024-12-21] MEDS: DEX/HYPRO/GLY ARTIFICAL TEARS 225 DROP/15 ML BTL BOTH EYES ×2 (09:00→20:25)
[2024-12-21] MEDS: CLOPIDOGREL BISULFATE 75 MG TABLET GT (09:00)
[2024-12-21] MEDS: APIXABAN 5 MG TABLET GT ×2 (09:00→20:25)
[2024-12-21] MEDS: INSULIN REGULAR, HUMAN 100 UNIT/ML VIAL SC (11:06)
[2024-12-21] MEDS: ATORVASTATIN 40 MG TABLET GT (20:25)
[2024-12-22] VITALS (9 sets, daily range): BP systolic 123–137; BP diastolic 62–78; PULSE 60–92; RESP 18–20; TEMP 36.2–36.5; O2SAT 97–100
[2024-12-22] MEDS: IPRATROPIUM/ALBUTEROL 3 ML AMPUL.NEB INH ×4 (00:17→18:36)
[2024-12-22] MEDS: SODIUM PHOSPHATE,MONO-DIBASIC 133 ML ENEMA PR (02:00)
[2024-12-22] MEDS: LEVOTHYROXINE 200 MCG TABLET GT (05:27)
[2024-12-22] MEDS: MAGNESIUM HYDROXIDE 30 ML ORAL SUSP ML GT (07:55)
[2024-12-22] MEDS: AMIODARONE 200 MG TABLET 400 MG GT (08:19)
[2024-12-22] MEDS: CHOLECALCIFEROL (VITAMIN D3) 25 MCG TABLET GT (08:19)
[2024-12-22] MEDS: APIXABAN 5 MG TABLET GT ×2 (08:19→20:37)
[2024-12-22] MEDS: CLOPIDOGREL BISULFATE 75 MG TABLET GT (08:20)
[2024-12-22] MEDS: DEX/HYPRO/GLY ARTIFICAL TEARS 225 DROP/15 ML BTL BOTH EYES ×2 (08:20→20:37)
[2024-12-22] MEDS: SENNOSIDES 8.6 MG TABLET GT ×2 (08:20→20:37)
--- NOTE | 2024-12-22 10:14 | PC.SS ---
This SSD informed resident has been having behaviors of being combative with staff. This SSD spoke with DISH PERSON's who have cared for resident, reports behavior may not be intentional and possible anxiety during turning and care. While DISH PERSON's and Lic. nurse were providing bed bath for resident he started to become agitated with bilateral mittens and started kicking at staff. This SSD called in room to speak with resident at which time this SSD observed resident to be agitated and asking staff to leave him alone. This SSD noticed resident attempting to remove mittens. This SSD asked staff to pause and allow resident to have some time to relax. Lic. Nurse said she was kicked in the arm by resident. This SSD spoke with resident asked him to allow for staff to at least cover him up and after would walk away and give him his time. Resident allowed staff to do so, this SSD will speak with RP about resident behaviors. This SSD will make daily contact with resident and monitor for changes in mood and behavior.
[2024-12-22] MEDS: INSULIN REGULAR, HUMAN 100 UNIT/ML VIAL SC (11:14)
[2024-12-22] MEDS: ATORVASTATIN 40 MG TABLET GT (20:37)
[2024-12-22] MEDS: ACETAMINOPHEN 325 MG TABLET 650 MG GT (20:38)
[2024-12-22] MEDS: BISACODYL 10 MG SUPP.RECT PR (23:30)
[2024-12-23] VITALS (10 sets, daily range): BP systolic 115–141; BP diastolic 64–83; PULSE 61–119; RESP 18–22; TEMP 36.4–37.9; O2SAT 96–100
--- NOTE | 2024-12-23 | XR_ITS ---
Examination: AP chest single view Technique one AP portable semiupright chest single view Exam date and time: December 23, 2024 1425 hours Comparison October 24, 2024 INDICATIONS: Fever today. FINDINGS: Early bilateral perihilar pneumonia. Normal heart size Tracheostomy tube tip 5.6 cm above shannon IMPRESSION: Early bilateral perihilar pneumonia
[2024-12-23] MEDS: IPRATROPIUM/ALBUTEROL 3 ML AMPUL.NEB INH ×4 (00:44→19:10)
[2024-12-23] MEDS: ACETAMINOPHEN 325 MG TABLET 650 MG GT ×3 (02:40→22:53)
--- NOTE | 2024-12-23 04:13 | PC.NURSE ---
resident been restless and combative through the night until 0300. Tylenol was given for pain, resident is sleeping at this moment. will continue to monitor
[2024-12-23] MEDS: LEVOTHYROXINE 200 MCG TABLET GT (05:38)
--- NOTE | 2024-12-23 06:44 | PC.NURSE ---
at approximately 0640, resident pulled out trach completely. vital sign was taken temp=97.8, VP=634/75, XH=963, RR=20, X1=443%. nurse and surgical appliance fitter attempt to put mittens the whole night but resident was combative. slept for only 2hrs.
[2024-12-23] MEDS: AMIODARONE 200 MG TABLET 400 MG GT (08:19)
[2024-12-23] MEDS: APIXABAN 5 MG TABLET GT ×2 (08:19→20:43)
[2024-12-23] MEDS: CHOLECALCIFEROL (VITAMIN D3) 25 MCG TABLET GT (08:20)
[2024-12-23] MEDS: DEX/HYPRO/GLY ARTIFICAL TEARS 225 DROP/15 ML BTL BOTH EYES ×2 (08:20→20:44)
[2024-12-23] MEDS: CLOPIDOGREL BISULFATE 75 MG TABLET GT (08:20)
[2024-12-23] MEDS: SENNOSIDES 8.6 MG TABLET GT ×2 (08:20→20:44)
--- NOTE | 2024-12-23 09:52 | PC.DIETICIAN ---
Possible TF interaction noted: New orders for TF: Glucerna 1.2 @ 70ml/hr x 22hrs via Gtube by pump (off 0400 and on at 0600 to hold 1 hr before and after Levothyroxine) Thank you
[2024-12-23] MEDS: INSULIN REGULAR, HUMAN 100 UNIT/ML VIAL SC ×2 (11:22→18:18)
--- NOTE | 2024-12-23 13:53 | PC.SS ---
Room visit: Resident was laying in bed with mittens on, resident was in good spirits seen smiling and attempting to engage in conversation. Staff continues to report combative behaviors towards staff. This SSD spoke with resident about his behaviors, this SSD to continue to make contact with resident.
--- NOTE | 2024-12-23 14:05 | PCS.ST ---
Pt has a fever today, not feeling well, not appropriate for ST. Family at bedside. Today was his last session for speaking valve device training, as it was established on initial assessment 3xw/ [address] services warranted.
--- NOTE | 2024-12-23 15:29 | PC.NURSE ---
Mr. Mcneil, VS: 100.3-88-20-119/71-99% on blow-by at 28%. No cyanosis or respiratory distress noted. NOC shift communicated that he was combative throughout the night, he dislodged his trach early this morning. For AM shift he has had intermittent episodes of combativeness early in the shift but has settled as the shift went on. He has had an elevated throughout the day, staff provided cooling measures and Tylenol with little effect. MD was made aware and elevated temperature protocol was initiated. New order for CBC, procalcitonin, blood cultures x2, UA with C&S, influenza A&B and COVID-19, and CXR. Mr. Mcneil is rest well at this time.
[2024-12-23 15:34] LABS: Basophils # (Auto) 0.1 Thou/mm3 (0.0-0.2); Basophils % (Auto) 1 % (0-2.5); Eosinophils # (Auto) 0.0 Thou/mm3 (0.0-0.5); Eosinophils % (Auto) 1 % (0-10); Hematocrit 34.3 % (41.0-53.0); Hemoglobin 11.0 g/dL (13.5-16.0); Immature Granulocytes Auto 0.03 Thou/mm3 (0.00-0.00); Lymphocytes # (Auto) 1.0 Thou/mm3 (1.0-4.8); Lymphocytes % (Auto) 13 % (10-50); Mean Corpuscular HGB Conc 32.1 g/dl (31.0-37.0); Mean Corpuscular Hemoglobin 30.7 pg (25.0-35.0); Mean Corpuscular Volume 96 fL (80-100); Monocytes # (Auto) 0.6 Thou/mm3 (0.0-0.8); Monocytes % (Auto) 7 % (0-12); Neutrophils # (Auto) 6.4 Thou/mm3 (1.8-7.7); Neutrophils % (Auto) 79 % (37-80); Nucleated Red Blood Cell # 0.00 Thou/mm3 (0.00-0.00); Nucleated Red Blood Cell % 0 /100 WBC (0); Platelet Count 254 Thou/mm3 (140-440); RDW Standard Deviation 53.0 fL (35.1-43.9); Red Blood Count 3.58 Miln/mm3 (4.50-5.90); White Blood Count 8.1 Thou/mm3 (3.8-10.6)
[2024-12-23 16:02] LABS: Procalcitonin 0.19 ng/ml (0.0-0.49)
[2024-12-23 16:53] LABS: Albumin, Serum 3.7 gm/dL (3.4-4.8); Anion Gap 10 (7-16); BUN/Creatinine Ratio 14 Ratio (12-20); Blood Urea Nitrogen 11 mg/dL (9-23); Calcium 8.8 mg/dL (8.3-10.6); Calcium (Corrected) 9.0 mg/dL (8.5-10.1); Carbon Dioxide 27.7 mMol/L (20.0-31.0); Chloride 104 mMol/L (98-107); Creatinine (Component) 0.8 mg/dL (0.6-1.3); Estimated Creatinine Clearance 96.6 mL/min (>60); Glucose 180 mg/dL (74-106); Osmolality,Calculated 287 (275-295); Phosphorous 3.4 mg/dL (2.4-5.1); Potassium 3.6 mMol/L (3.4-5.1); Sodium 142 mMol/L (136-145); eGFR > 60 See Note
[2024-12-23 16:58] LABS: Collection Type, Urine Catheter; Squamous Epithelial Cell,Urine 0 /hpf (0-5)
[2024-12-23 17:24] LABS: COVID-19 Antigen (In-House) Negative (Negative)
[2024-12-23 17:41] LABS: Amorphous Crystals,Urine Present (Absent); Bacteria,Urine Rare; Bilirubin,Urine Negative (Negative); Blood,Urine Negative (Negative); Clarity,Urine Cloudy (Clear/Hazy); Color,Urine Yellow (Lt Yel-Yel); Culture Indicated,Urine Yes; Glucose, Urine Negative (Negative); Ketones,Urine Negative (Negative); Leukocyte Esterase,Urine Positive (Negative); Nitrite,Urine Positive (Negative); PH,Urine 8.0 (5.0-7.0); Protein,Urine Trace (Neg - Trace); RBC,Urine 2 /hpf (0-3); Specific Gravity,Urine 1.021 (1.001-1.035); Urobilinogen,Urine 2.0 mg/dL (0.0-1.0); WBC,Urine 13 /hpf (0-5)
--- NOTE | 2024-12-23 19:30 | PC.NURSE ---
NAHOMI INFORMED ORDERED IV ANTIBIOTICS FOR RESIDENT. STATES NKA. AT BEDSIDE.
[2024-12-23] MEDS: cefTRIAXone 1,000 MG in SODIUM CHLORIDE 0.9% (Popper) 50 ML 100 MG IV (20:00)
[2024-12-23] MEDS: ATORVASTATIN 40 MG TABLET GT (20:44)
[2024-12-23 20:53] LABS: Influenza A Ag Negative; Influenza B Ag Negative
--- NOTE | 2024-12-23 21:17 | PC.NURSE ---
RESIDENT TOLERATED ROCEPHIN IV. NO ADVERSE REACTION NOTED. AT BEDSIDE.
[2024-12-24] VITALS (9 sets, daily range): BP systolic 109–129; BP diastolic 61–72; PULSE 64–88; RESP 16–20; TEMP 36.6–37.5; O2SAT 94–99
[2024-12-24] MEDS: IPRATROPIUM/ALBUTEROL 3 ML AMPUL.NEB INH ×4 (00:35→18:56)
[2024-12-24] MEDS: LEVOTHYROXINE 200 MCG TABLET GT (05:35)
[2024-12-24 07:51] LABS: Glucose,Fasting 162 mg/dL (74-106)
[2024-12-24] MEDS: AMIODARONE 200 MG TABLET 400 MG GT (09:07)
[2024-12-24] MEDS: APIXABAN 5 MG TABLET GT ×2 (09:07→21:11)
[2024-12-24] MEDS: SENNOSIDES 8.6 MG TABLET GT ×2 (09:08→21:11)
[2024-12-24] MEDS: CLOPIDOGREL BISULFATE 75 MG TABLET GT (09:08)
[2024-12-24] MEDS: CHOLECALCIFEROL (VITAMIN D3) 25 MCG TABLET GT (09:08)
[2024-12-24] MEDS: DEX/HYPRO/GLY ARTIFICAL TEARS 225 DROP/15 ML BTL BOTH EYES ×2 (09:08→21:11)
[2024-12-24] MEDS: cefTRIAXone 1,000 MG in SODIUM CHLORIDE 0.9% (Popper) 50 ML 100 MG IV (20:14)
[2024-12-24] MEDS: ATORVASTATIN 40 MG TABLET GT (21:11)
[2024-12-25] VITALS (7 sets, daily range): BP systolic 117–128; BP diastolic 61–66; PULSE 64–81; RESP 16–20; TEMP 36.6–36.8; O2SAT 93–99
[2024-12-25] MEDS: IPRATROPIUM/ALBUTEROL 3 ML AMPUL.NEB INH ×4 (00:30→18:35)
--- NOTE | 2024-12-25 05:34 | PC.NURSE ---
RESIDENT TOLERATING ROCEPHIN IV. NO ADVERSE REACTION NOTED. NO FEVER. NO DISCOMFORT NOTED.
[2024-12-25] MEDS: INSULIN REGULAR, HUMAN 100 UNIT/ML VIAL SC ×2 (05:55→12:11)
[2024-12-25] MEDS: LEVOTHYROXINE 200 MCG TABLET GT (06:11)
[2024-12-25] MEDS: CARBAMIDE PEROXIDE OTIC SOL 15 ML BTL 5 DROP BOTH EARS (08:51)
[2024-12-25] MEDS: CLOPIDOGREL BISULFATE 75 MG TABLET GT (08:51)
[2024-12-25] MEDS: CHOLECALCIFEROL (VITAMIN D3) 25 MCG TABLET GT (08:51)
[2024-12-25] MEDS: AMIODARONE 200 MG TABLET 400 MG GT (08:51)
[2024-12-25] MEDS: APIXABAN 5 MG TABLET GT ×2 (08:51→20:28)
[2024-12-25] MEDS: DEX/HYPRO/GLY ARTIFICAL TEARS 225 DROP/15 ML BTL BOTH EYES ×2 (08:52→20:29)
[2024-12-25] MEDS: SENNOSIDES 8.6 MG TABLET GT ×2 (08:52→20:30)
--- NOTE | 2024-12-25 10:15 | PD.SAPROG ---
Progress Note - SubAcute DIAGNOSIS (1) Acute arterial ischemic stroke, vertebrobasilar, brainstem: Status: Chronic Qualifiers: Laterality: left Qualified Code(s): I63.212 - Cerebral infarction due to unspecified occlusion or stenosis of left vertebral artery; I63.22 - Cerebral infarction due to unspecified occlusion or stenosis of basilar artery (2) Seizures, generalized convulsive: Status: Chronic (3) Chronic respiratory failure: Status: Chronic Qualifiers: Respiratory failure complication: unspecified whether with hypoxia or hypercapnia Qualified Code(s): J96.10 - Chronic respiratory failure, unspecified whether with hypoxia or hypercapnia (4) Altered glucose metabolism due to diabetes: Status: Chronic (5) Encephalopathy: Status: Chronic (6) Decubital ulcer: Status: Chronic (7) G tube feedings: Status: Chronic (8) Tracheostomy in place: Status: Chronic SUBJECTIVE Fever:: none Shortness of Breath:: none Pain:: none OBJECTIVE Most recent vital signs: Last Vital Signs Temp 98.2 F 12/25/24 06:00 Pulse 64 12/25/24 08:51 Resp 18 12/25/24 06:12 BP 117/66 12/25/24 08:51 Pulse Ox 95 12/25/24 06:12 O2 Del Method Blow-by 12/25/24 06:00 O2 Flow Rate 6 12/25/24 06:12 FiO2 28 12/25/24 06:12 Speech:: mouths words (sometimes) Answers questions:: sometimes (mostly by gestures) Respiratory:: lungs clear Cardiovascular: RRR Abdomen: soft Tracheostomy:: to blow by Feeding per:: G tube ASSESSMENT & PLAN Assessment: Pt seems to be fairly stable with all above diagnosis and with limited /guarded prognosis for recovery to independent living and needs all support. Family supportive Denies any pain. VSS 11-11-24 Met with family in pt's room and updated them as well as answered all questions. Reiterated limited prognosis for independent living. Neurology input on prognostic outlook and medication review followed. Repeat CT head ordered by neurologist was done and results discussed with the Neurologist who confirmed stable changes and recommended no change on medicine. This was updated with the family the No new issues , Talked with family at bedside and updated them. VSS. Started on Melatonin q hs 3 mgs prn to facilitate sleep. Plan: Full support medical/nutritional and emotional towards maintaining some quality of life
[2024-12-25] MEDS: ACETAMINOPHEN 325 MG TABLET 650 MG GT ×2 (10:54→20:30)
--- NOTE | 2024-12-25 15:24 | PC.SS ---
Resident seen by cuffer/Dr. Rivas for routine toe nail care. Resident tolerated treatment well with no questions or concerns. No new recommendations, to continue current care.
--- NOTE | 2024-12-25 19:12 | PD.SAPROG ---
Progress Note - SubAcute DIAGNOSIS (1) Acute arterial ischemic stroke, vertebrobasilar, brainstem: Status: Chronic Qualifiers: Laterality: left Qualified Code(s): I63.212 - Cerebral infarction due to unspecified occlusion or stenosis of left vertebral artery; I63.22 - Cerebral infarction due to unspecified occlusion or stenosis of basilar artery (2) Seizures, generalized convulsive: Status: Chronic (3) Chronic respiratory failure: Status: Chronic Qualifiers: Respiratory failure complication: unspecified whether with hypoxia or hypercapnia Qualified Code(s): J96.10 - Chronic respiratory failure, unspecified whether with hypoxia or hypercapnia (4) Altered glucose metabolism due to diabetes: Status: Chronic (5) Encephalopathy: Status: Chronic (6) Decubital ulcer: Status: Chronic (7) G tube feedings: Status: Chronic (8) Tracheostomy in place: Status: Chronic SUBJECTIVE Fever:: none Shortness of Breath:: none Pain:: none OBJECTIVE Most recent vital signs: Last Vital Signs Temp 98.2 F 12/25/24 06:00 Pulse 65 12/25/24 13:08 Resp 18 12/25/24 13:08 BP 117/66 12/25/24 08:51 Pulse Ox 99 12/25/24 13:08 O2 Del Method Blow-by 12/25/24 06:00 O2 Flow Rate 6 12/25/24 13:08 FiO2 28 12/25/24 13:08 Speech:: mouths words (sometimes) Answers questions:: sometimes (mostly by gestures) Respiratory:: lungs clear Cardiovascular: RRR Abdomen: soft Tracheostomy:: to blow by Feeding per:: G tube ASSESSMENT & PLAN Assessment: Pt seems to be fairly stable with all above diagnosis and with limited /guarded prognosis for recovery to independent living and needs all support. Family supportive Denies any pain. VSS 11-11-24 Met with family in pt's room and updated them as well as answered all questions. Reiterated limited prognosis for independent living. Neurology input on prognostic outlook and medication review followed. Repeat CT head ordered by neurologist was done and results discussed with the Neurologist who confirmed stable changes and recommended no change on medicine. This was updated with the family the No new issues , Talked with family at bedside and updated them. VSS. Started on Melatonin q hs 3 mgs prn to facilitate sleep. Plan: Full support medical/nutritional and emotional towards maintaining some quality of life
[2024-12-25] MEDS: ATORVASTATIN 40 MG TABLET GT (20:28)
[2024-12-25] MEDS: MAGNESIUM HYDROXIDE 30 ML ORAL SUSP ML GT (20:30)
[2024-12-25] MEDS: cefTRIAXone 1,000 MG in SODIUM CHLORIDE 0.9% (Popper) 50 ML 100 MG IV (20:41)
[2024-12-25] MEDS: MELATONIN 3 MG TABLET GT (21:00)
--- NOTE | 2024-12-25 21:13 | PC.NURSE ---
During care resident noted to be very restless, resident was kicking his legs up trying to hit staff and was trying to pull at tubing, three staff members were present, mittens placed, this nurse noted a small skin tear to Lt hand near third finger will placing mittens, family came in after staff provided care, family was able to calm resident down, this nurse informed of incident, new order for Ativan 0.5mg GT [id number] PRN for anxiety MB restlessness x7days, re-eval, consent obtained by RP who is present at bedside (), possible side effects informed, all questions answered, HOB elevated call light within reach.
[2024-12-26] VITALS (7 sets, daily range): BP systolic 119–134; BP diastolic 54–69; PULSE 65–74; RESP 18–20; TEMP 36.6; O2SAT 95–100; BMI 21.2
[2024-12-26] MEDS: IPRATROPIUM/ALBUTEROL 3 ML AMPUL.NEB INH ×4 (00:08→19:34)
[2024-12-26] MEDS: LEVOTHYROXINE 200 MCG TABLET GT (05:11)
[2024-12-26] MEDS: AMIODARONE 200 MG TABLET 400 MG GT (09:24)
[2024-12-26] MEDS: APIXABAN 5 MG TABLET GT ×2 (09:25→21:14)
[2024-12-26] MEDS: SENNOSIDES 8.6 MG TABLET GT ×2 (09:27→21:16)
[2024-12-26] MEDS: CLOPIDOGREL BISULFATE 75 MG TABLET GT (09:27)
[2024-12-26] MEDS: DEX/HYPRO/GLY ARTIFICAL TEARS 225 DROP/15 ML BTL BOTH EYES ×2 (09:27→21:15)
[2024-12-26] MEDS: CHOLECALCIFEROL (VITAMIN D3) 25 MCG TABLET GT (09:27)
--- NOTE | 2024-12-26 19:29 | PC.NURSE ---
Spoke with Dr East this morning with sputum c & s result of pseudomonas aeroginosa which resistant to Rocephin I gm IV and urine c & s still pending. Resident remains stable and no adverse reaction noted. Remains afebrile. said to continue the Rocephin until the urine c & s result is in.
--- NOTE | 2024-12-26 19:32 | PC.NURSE ---
Resident 's family members were at bedside when CNAs went to their rounds at around 14:30 and staffs noted that resident's trach was out. No s/s of respiratory distress noted. RT replaced trach without difficulty, resident tolerated the procedure. V/S as follows: 111/67, 60, 17, 98.[address] gibson made aware, no new orders made.
[2024-12-26] MEDS: cefTRIAXone 1,000 MG in SODIUM CHLORIDE 0.9% (Popper) 50 ML 100 MG IV (21:09)
[2024-12-26] MEDS: MELATONIN 3 MG TABLET GT (21:10)
[2024-12-26] MEDS: ATORVASTATIN 40 MG TABLET GT (21:14)
[2024-12-27] VITALS (9 sets, daily range): BP systolic 113–136; BP diastolic 57–72; PULSE 58–75; RESP 17–20; TEMP 36.3–36.8; O2SAT 93–100
[2024-12-27] MEDS: IPRATROPIUM/ALBUTEROL 3 ML AMPUL.NEB INH ×4 (00:54→19:05)
[2024-12-27] MEDS: LEVOTHYROXINE 200 MCG TABLET GT (05:44)
--- NOTE | 2024-12-27 06:20 | PC.NURSE ---
made aware of UC, new order to DC Rocephin and start Vanco for enterococcus faecalis, [facility] to dose Vanco, no ABT order for second organism.
[2024-12-27] MEDS: AMIODARONE 200 MG TABLET 400 MG GT (09:21)
[2024-12-27] MEDS: APIXABAN 5 MG TABLET GT ×2 (09:21→20:42)
[2024-12-27] MEDS: DEX/HYPRO/GLY ARTIFICAL TEARS 225 DROP/15 ML BTL BOTH EYES ×2 (09:22→20:43)
[2024-12-27] MEDS: CHOLECALCIFEROL (VITAMIN D3) 25 MCG TABLET GT (09:22)
[2024-12-27] MEDS: SENNOSIDES 8.6 MG TABLET GT ×2 (09:22→21:26)
[2024-12-27] MEDS: CLOPIDOGREL BISULFATE 75 MG TABLET GT (09:22)
[2024-12-27] MEDS: SODIUM PHOSPHATE,MONO-DIBASIC 133 ML ENEMA PR (14:15)
[2024-12-27] MEDS: Vancomycin Inj 1,000 MG in SODIUM CHLORIDE 0.9% 250 ML 250 ML 150 MG IV (17:30)
[2024-12-27] MEDS: ATORVASTATIN 40 MG TABLET GT (20:43)
[2024-12-27] MEDS: MELATONIN 3 MG TABLET GT (23:27)
[2024-12-28] VITALS (9 sets, daily range): BP systolic 120–146; BP diastolic 51–72; PULSE 54–84; RESP 16–20; TEMP 36.2–37.1; O2SAT 95–100
[2024-12-28] MEDS: IPRATROPIUM/ALBUTEROL 3 ML AMPUL.NEB INH ×4 (02:01→19:42)
[2024-12-28] MEDS: ACETAMINOPHEN 325 MG TABLET 650 MG GT (03:30)
[2024-12-28] MEDS: LEVOTHYROXINE 200 MCG TABLET GT (05:41)
[2024-12-28] MEDS: DEX/HYPRO/GLY ARTIFICAL TEARS 225 DROP/15 ML BTL BOTH EYES ×2 (08:30→20:52)
[2024-12-28] MEDS: CHOLECALCIFEROL (VITAMIN D3) 25 MCG TABLET GT (08:30)
[2024-12-28] MEDS: SENNOSIDES 8.6 MG TABLET GT ×2 (08:30→20:52)
[2024-12-28] MEDS: CLOPIDOGREL BISULFATE 75 MG TABLET GT (08:30)
[2024-12-28] MEDS: AMIODARONE 200 MG TABLET 400 MG GT (08:30)
[2024-12-28] MEDS: APIXABAN 5 MG TABLET GT ×2 (09:35→20:51)
[2024-12-28] MEDS: Vancomycin Inj 1,000 MG in SODIUM CHLORIDE 0.9% 250 ML 250 ML 150 MG IV ×2 (09:47→20:03)
[2024-12-28] MEDS: INSULIN REGULAR, HUMAN 100 UNIT/ML VIAL SC ×2 (11:11→17:03)
[2024-12-28] MEDS: ATORVASTATIN 40 MG TABLET GT (20:51)
[2024-12-29] VITALS (7 sets, daily range): BP systolic 111–129; BP diastolic 65–71; PULSE 57–66; RESP 17–20; TEMP 36.4–36.6; O2SAT 96–100
[2024-12-29] MEDS: IPRATROPIUM/ALBUTEROL 3 ML AMPUL.NEB INH ×4 (00:30→18:30)
--- NOTE | 2024-12-29 00:50 | PC.NURSE ---
Condition remains stable. No side effcet noted from Vancomycin for enterococcus faecalis in urine. Voiding well. No hematuria or s/s of bladder discomfort noted. Good shahid care provided
--- NOTE | 2024-12-29 03:13 | PC.NURSE ---
This nurse spoke to Julio from [facility] regarding time of vaco trough to be drawn prior to 4th dose, per Julio, vanco trough should be drawn 30 minutes prior to the 4th dose, lab made aware of time change from 0600 to 0830.
[2024-12-29] MEDS: LEVOTHYROXINE 200 MCG TABLET GT (05:11)
[2024-12-29 06:54] LABS: Levetiracetam (Keppra)* 13.0 mcg/mL (6.0-46.0)
[2024-12-29] MEDS: APIXABAN 5 MG TABLET GT ×2 (08:56→20:50)
[2024-12-29] MEDS: SENNOSIDES 8.6 MG TABLET GT ×2 (08:57→20:51)
[2024-12-29] MEDS: CHOLECALCIFEROL (VITAMIN D3) 25 MCG TABLET GT (08:57)
[2024-12-29] MEDS: CLOPIDOGREL BISULFATE 75 MG TABLET GT (08:57)
[2024-12-29] MEDS: DEX/HYPRO/GLY ARTIFICAL TEARS 225 DROP/15 ML BTL BOTH EYES ×2 (08:57→20:51)
[2024-12-29 09:22] LABS: Anion Gap 6 (7-16); BUN/Creatinine Ratio 15 Ratio (12-20); Blood Urea Nitrogen 12 mg/dL (9-23); Carbon Dioxide 31.5 mMol/L (20.0-31.0); Chloride 106 mMol/L (98-107); Creatinine (Component) 0.8 mg/dL (0.6-1.3); Potassium 3.9 mMol/L (3.4-5.1); Sodium 143 mMol/L (136-145)
[2024-12-29 09:23] LABS: Albumin, Serum 3.3 gm/dL (3.4-4.8); Calcium 8.8 mg/dL (8.3-10.6); Calcium (Corrected) 9.4 mg/dL (8.5-10.1); Estimated Creatinine Clearance 98.5 mL/min (>60); Glucose 166 mg/dL (74-106); Osmolality,Calculated 288 (275-295); Phosphorous 4.1 mg/dL (2.4-5.1); Vancomycin,Trough 10.1 mcg/mL (5.0-10.0); eGFR > 60 See Note
[2024-12-29] MEDS: INSULIN REGULAR, HUMAN 100 UNIT/ML VIAL SC (11:49)
--- NOTE | 2024-12-29 13:57 | PC.NURSE ---
Vancomycin trough done this am for continuation of IV antibiotic regimen. E-faxed results to [facility]. Gita Pharmacist at [facility] for today's dose be given. TOWER CLEANER CARRIED OUT ORDER NOTIFIED. NEW RECOMMENDATION FOR NEXT VANCOMYCIN TROUGH.
--- NOTE | 2024-12-29 15:20 | PC.SS ---
Resident seen by medical practitioners/Dr. Rivas for routine toe nail care. Resident tolerated treatment well with no questions or concerns. No new recommendations, to continue current care.
[2024-12-29] MEDS: ACETAMINOPHEN 325 MG TABLET 650 MG GT ×2 (16:08→22:15)
--- NOTE | 2024-12-29 17:02 | PC.NURSE ---
Resident remains on ABT therapy via IV. No A/E from medication noted. Tolerating it well.
--- NOTE | 2024-12-29 19:04 | PD.SAPROG ---
Progress Note - SubAcute DIAGNOSIS (1) Acute arterial ischemic stroke, vertebrobasilar, brainstem: Status: Chronic Qualifiers: Laterality: left Qualified Code(s): I63.212 - Cerebral infarction due to unspecified occlusion or stenosis of left vertebral artery; I63.22 - Cerebral infarction due to unspecified occlusion or stenosis of basilar artery (2) Seizures, generalized convulsive: Status: Chronic (3) Chronic respiratory failure: Status: Chronic Qualifiers: Respiratory failure complication: unspecified whether with hypoxia or hypercapnia Qualified Code(s): J96.10 - Chronic respiratory failure, unspecified whether with hypoxia or hypercapnia (4) Altered glucose metabolism due to diabetes: Status: Chronic (5) Encephalopathy: Status: Chronic (6) Decubital ulcer: Status: Chronic (7) G tube feedings: Status: Chronic (8) Tracheostomy in place: Status: Chronic SUBJECTIVE Fever:: none Shortness of Breath:: none Pain:: none OBJECTIVE Most recent vital signs: Last Vital Signs Temp 97.6 F 12/29/24 06:00 Pulse 61 12/29/24 18:30 Resp 18 12/29/24 18:30 BP 129/71 12/29/24 08:55 Pulse Ox 96 12/29/24 18:30 O2 Del Method Blow-by 12/29/24 06:00 O2 Flow Rate 6 12/29/24 18:30 FiO2 28 12/29/24 18:30 Speech:: mouths words (sometimes) Answers questions:: sometimes (mostly by gestures) Respiratory:: lungs clear Cardiovascular: RRR Abdomen: soft Tracheostomy:: to blow by Feeding per:: G tube ASSESSMENT & PLAN Assessment: Pt seems to be fairly stable with all above diagnosis and with limited /guarded prognosis for recovery to independent living and needs all support. Family supportive Denies any pain. VSS 11-11-24 Met with family in pt's room and updated them as well as answered all questions. Reiterated limited prognosis for independent living. Neurology input on prognostic outlook and medication review followed. Repeat CT head ordered by neurologist was done and results discussed with the Neurologist who confirmed stable changes and recommended no change on medicine. This was updated with the family the No new issues , Talked with family at bedside and updated them. VSS. Started on Melatonin q hs 3 mgs prn to facilitate sleep. Pt had fever due to E. faecalis UTI and started on Vancomycin 1gm IVPB q 12 hourly on 12-28-24 Responding well. Plan: Full support medical/nutritional and emotional towards maintaining some quality of life
[2024-12-29] MEDS: ATORVASTATIN 40 MG TABLET GT (20:50)
[2024-12-29] MEDS: MAGNESIUM HYDROXIDE 30 ML ORAL SUSP ML GT (20:52)
[2024-12-30] VITALS (9 sets, daily range): BP systolic 90–138; BP diastolic 54–72; PULSE 62–102; RESP 16–20; TEMP 36.7–37.1; O2SAT 94–100
[2024-12-30] MEDS: IPRATROPIUM/ALBUTEROL 3 ML AMPUL.NEB INH ×4 (00:50→20:07)
[2024-12-30] MEDS: LEVOTHYROXINE 200 MCG TABLET GT (05:20)
--- NOTE | 2024-12-30 06:25 | PC.NURSE ---
Resident remains on IV antibiotics Vancomycin for Enterococcus faecalis in urine culture, no side effects notes, IV to left wrist remains patent, bilateral mittens on at this time
[2024-12-30] MEDS: AMIODARONE 200 MG TABLET 400 MG GT (08:31)
[2024-12-30] MEDS: CHOLECALCIFEROL (VITAMIN D3) 25 MCG TABLET GT (08:32)
[2024-12-30] MEDS: SENNOSIDES 8.6 MG TABLET GT ×2 (08:32→21:12)
[2024-12-30] MEDS: APIXABAN 5 MG TABLET GT ×2 (08:32→21:11)
[2024-12-30] MEDS: CLOPIDOGREL BISULFATE 75 MG TABLET GT (08:32)
[2024-12-30] MEDS: DEX/HYPRO/GLY ARTIFICAL TEARS 225 DROP/15 ML BTL BOTH EYES ×2 (08:32→21:12)
[2024-12-30] MEDS: ACETAMINOPHEN 325 MG TABLET 650 MG GT (08:35)
--- NOTE | 2024-12-30 10:15 | PC.NURSE ---
Vancomycin 1grm IV was given at 0900 today
[2024-12-30] MEDS: INSULIN REGULAR, HUMAN 100 UNIT/ML VIAL SC (11:49)
[2024-12-30] MEDS: ATORVASTATIN 40 MG TABLET GT (21:11)
[2024-12-31] VITALS (10 sets, daily range): BP systolic 125–150; BP diastolic 66–80; PULSE 63–85; RESP 18–22; TEMP 36.3–37.2; O2SAT 96–100
[2024-12-31] MEDS: IPRATROPIUM/ALBUTEROL 3 ML AMPUL.NEB INH ×4 (00:12→18:20)
--- NOTE | 2024-12-31 03:29 | PC.NURSE ---
Resident continues on the Vanco 1gm IV, 24G to left wrist, resident maintains afebrile, no side effects or adverse reaction noted, vanco trough is schedule to day at 0830, resident denies pain, resident in room resting with eyes closed, respirations even and unlabored, HOB elevated, call light within reach, no s/s of distress noted.
[2024-12-31] MEDS: LEVOTHYROXINE 200 MCG TABLET GT (05:29)
[2024-12-31] MEDS: SODIUM PHOSPHATE,MONO-DIBASIC 133 ML ENEMA PR (06:25)
[2024-12-31] MEDS: APIXABAN 5 MG TABLET GT ×2 (09:00→20:46)
[2024-12-31] MEDS: CLOPIDOGREL BISULFATE 75 MG TABLET GT (09:00)
[2024-12-31] MEDS: DEX/HYPRO/GLY ARTIFICAL TEARS 225 DROP/15 ML BTL BOTH EYES ×2 (09:00→20:47)
[2024-12-31] MEDS: CHOLECALCIFEROL (VITAMIN D3) 25 MCG TABLET GT (09:00)
[2024-12-31] MEDS: AMIODARONE 200 MG TABLET 400 MG GT (09:00)
[2024-12-31] MEDS: SENNOSIDES 8.6 MG TABLET GT ×2 (09:01→20:47)
[2024-12-31 09:27] LABS: Alanine Aminotransferase 56 U/L (10-49); Albumin, Serum 3.3 gm/dL (3.4-4.8); Albumin/Globulin Ratio 1.2 (1.2-2.2); Alkaline Phosphatase 102 U/L (46-116); Anion Gap 7 (7-16); Aspartate Amino Transferase 48 U/L (0-34); BUN/Creatinine Ratio 14 Ratio (12-20); Bilirubin,Total 0.3 mg/dL (0.3-1.2); Blood Urea Nitrogen 11 mg/dL (9-23); Calcium 9.0 mg/dL (8.3-10.6); Calcium (Corrected) 9.6 mg/dL (8.5-10.1); Carbon Dioxide 29.0 mMol/L (20.0-31.0); Chloride 107 mMol/L (98-107); Creatinine (Component) 0.8 mg/dL (0.6-1.3); Estimated Creatinine Clearance 98.5 mL/min (>60); Globulin 2.7 gm/dL (2.3-3.5); Glucose 140 mg/dL (74-106); Osmolality,Calculated 286 (275-295); Phosphorous 3.2 mg/dL (2.4-5.1); Potassium 3.5 mMol/L (3.4-5.1); Sodium 143 mMol/L (136-145); Total Protein 6.0 gm/dL (5.7-8.2); Vancomycin,Trough 14.1 mcg/mL (5.0-10.0); eGFR > 60 See Note
[2024-12-31] MEDS: ATORVASTATIN 40 MG TABLET GT (20:47)
[2024-12-31] MEDS: MAGNESIUM HYDROXIDE 30 ML ORAL SUSP ML GT (20:48)
[2024-12-31] MEDS: MELATONIN 3 MG TABLET GT (20:49)
--- NOTE | 2024-12-31 21:03 | PC.NURSE ---
Addendum entered by Audra Hampton RN 01/01/25 07:04: Correction: IV Vanco will be completed on 01/03/25 at 0900, Vanco trough and renal panel to be drawn 30 minutes prior to 0900 dose on 01/02/25, fax results to [facility] for further orders. New 22 g IV inserted to left forearm, no side effects noted. Original Note: Received in change of shift report that resident had Vanco trough and renal panel this AM, per AM nurse who spoke with Dr Castro who is covering Dr East, reported to hold the Vanco dose. Resident has remaining 3 doses until 01/01/25-2100 will be last dose for Enterococcus faecalis in urine culture. Faxed renal panel and Vanco trough results to [facility]. Followed up and spoke with Charly the Pharmacist at [facility] regarding Vanco trough of 14.1, per Charly Vanco trough is at ideal level, okay to give Vanco dose at 2100. Will continue on Vanco 1 gram BID until tomorrow, no other Vanco troughs or Renal panel needed at this time.
[2025-01-01] VITALS (7 sets, daily range): BP systolic 129–149; BP diastolic 71–78; PULSE 59–81; RESP 16–21; TEMP 36.6–36.9; O2SAT 93–100
[2025-01-01] MEDS: IPRATROPIUM/ALBUTEROL 3 ML AMPUL.NEB INH ×4 (01:46→19:33)
[2025-01-01] MEDS: LEVOTHYROXINE 200 MCG TABLET GT (05:26)
--- NOTE | 2025-01-01 07:19 | PC.SS ---
Room visit: Resident is laying in bed with head of the bed elevated with call light properly placed with no signs of distress. Resident is non verbal, at times he is able to make simple needs. Resident is represented by his . Resident will remain in current care as he has no changes in care or condition. He remains on blow by with trach in place and GT for medication and nutrition. This SSD will continue to make daily contact with resident and will monitor for changes in mood and behavior.
[2025-01-01] MEDS: AMIODARONE 200 MG TABLET 400 MG GT (08:39)
[2025-01-01] MEDS: CLOPIDOGREL BISULFATE 75 MG TABLET GT (08:40)
[2025-01-01] MEDS: CHOLECALCIFEROL (VITAMIN D3) 25 MCG TABLET GT (08:40)
[2025-01-01] MEDS: APIXABAN 5 MG TABLET GT ×2 (08:40→20:40)
[2025-01-01] MEDS: DEX/HYPRO/GLY ARTIFICAL TEARS 225 DROP/15 ML BTL BOTH EYES ×2 (08:41→20:40)
[2025-01-01] MEDS: SENNOSIDES 8.6 MG TABLET GT ×2 (08:41→20:40)
[2025-01-01] MEDS: BISACODYL 10 MG SUPP.RECT PR (11:06)
[2025-01-01] MEDS: ATORVASTATIN 40 MG TABLET GT (20:40)
[2025-01-01] MEDS: MELATONIN 3 MG TABLET GT (20:41)
[2025-01-01] MEDS: diphenhydrAMINE 25 MG TABLET GT (22:00)
[2025-01-02] VITALS (9 sets, daily range): BP systolic 113–144; BP diastolic 60–87; PULSE 58–73; RESP 16–20; TEMP 36.5–36.6; O2SAT 94–99; BMI 12.0
[2025-01-02] MEDS: IPRATROPIUM/ALBUTEROL 3 ML AMPUL.NEB INH ×4 (00:40→19:21)
[2025-01-02] MEDS: INSULIN REGULAR, HUMAN 100 UNIT/ML VIAL SC (05:46)
[2025-01-02] MEDS: LEVOTHYROXINE 200 MCG TABLET GT (05:47)
--- NOTE | 2025-01-02 06:28 | PC.NURSE ---
Resident remains on IV antibiotic Vancomycin for Enterococcus faecalis in urine culture, reddened areas noted to left arm, IV site, notified MD, order to decrease rate to 71ml/hr and x1 dose of Benadryl. New order for Benadryl 25 mg to be given 30 minutes prior to start of Vanco dose. Reddened areas to arm no longer noted to left arm after 40 minutes.
[2025-01-02] MEDS: CHOLECALCIFEROL (VITAMIN D3) 25 MCG TABLET GT (09:00)
[2025-01-02] MEDS: SENNOSIDES 8.6 MG TABLET GT ×2 (09:00→21:08)
[2025-01-02] MEDS: APIXABAN 5 MG TABLET GT ×2 (09:00→21:07)
[2025-01-02] MEDS: AMIODARONE 200 MG TABLET 400 MG GT (09:00)
[2025-01-02] MEDS: DEX/HYPRO/GLY ARTIFICAL TEARS 225 DROP/15 ML BTL BOTH EYES ×2 (09:00→21:08)
[2025-01-02] MEDS: CLOPIDOGREL BISULFATE 75 MG TABLET GT (09:00)
[2025-01-02] MEDS: Vancomycin Inj 1,000 MG in SODIUM CHLORIDE 0.9% 250 ML 250 ML 150 MG IV (10:00)
--- NOTE | 2025-01-02 10:57 | PC.NURSE ---
Vancomycin Trough and CMP ordered by [facility] nurse Audra to be drawn at 0830 this AM Prior to administer 0900 dose. Lab came to draw after 830. script writer checked for result several times , results are not yet ready. Called lab spoke to Allan. He stated their equipment is down. Allan does not know whe results will be ready.Will notify
[2025-01-02 11:40] LABS: Albumin, Serum 3.3 gm/dL (3.4-4.8); Anion Gap 9 (7-16); BUN/Creatinine Ratio 13 Ratio (12-20); Blood Urea Nitrogen 10 mg/dL (9-23); Calcium 8.5 mg/dL (8.3-10.6); Calcium (Corrected) 9.1 mg/dL (8.5-10.1); Carbon Dioxide 28.6 mMol/L (20.0-31.0); Chloride 105 mMol/L (98-107); Creatinine (Component) 0.8 mg/dL (0.6-1.3); Estimated Creatinine Clearance 98.5 mL/min (>60); Glucose 155 mg/dL (74-106); Osmolality,Calculated 286 (275-295); Phosphorous 4.7 mg/dL (2.4-5.1); Potassium 3.8 mMol/L (3.4-5.1); Sodium 143 mMol/L (136-145); Vancomycin,Trough 10.9 mcg/mL (5.0-10.0); eGFR > 60 See Note
--- NOTE | 2025-01-02 16:21 | PC.NURSE ---
Condition remains stable. Alert and responsive. Remains on Vancomycin 1 gm IV for UTI, no adverse reaction noted.domen soft and non tender. Denies any pain or discomfort at this time. IV H/L to left forearm, no s/s of infection noted. Good shahid care provided.
--- NOTE | 2025-01-02 17:07 | PC.NURSE ---
Resident received Vancomycin dose as recommended by MD pharmacist Lakesha (male ) resident tolerated antibiotic well no skin reaction or any other adverse reaction noted. Need 2 more doses to complete treatment.
[2025-01-02] MEDS: ATORVASTATIN 40 MG TABLET GT (21:08)
[2025-01-02] MEDS: diphenhydrAMINE 25 MG TABLET GT (21:30)
--- NOTE | 2025-01-02 22:00 | PC.NURSE ---
Noted redness and warm to touch to IV site. New IV inserted to Left forearm 22G, x2 attempt. Good blood return, tolerated well. Removed previous IV, catheter intact.
[2025-01-03] VITALS (10 sets, daily range): BP systolic 118–144; BP diastolic 62–72; PULSE 60–77; RESP 17–20; TEMP 36.6–37.2; O2SAT 92–100
[2025-01-03] MEDS: IPRATROPIUM/ALBUTEROL 3 ML AMPUL.NEB INH ×4 (00:51→18:35)
[2025-01-03] MEDS: LEVOTHYROXINE 200 MCG TABLET GT (05:11)
[2025-01-03] MEDS: AMIODARONE 200 MG TABLET 400 MG GT (09:01)
[2025-01-03] MEDS: CLOPIDOGREL BISULFATE 75 MG TABLET GT (09:02)
[2025-01-03] MEDS: CHOLECALCIFEROL (VITAMIN D3) 25 MCG TABLET GT (09:02)
[2025-01-03] MEDS: APIXABAN 5 MG TABLET GT ×2 (09:02→20:56)
[2025-01-03] MEDS: SENNOSIDES 8.6 MG TABLET GT ×2 (09:02→20:55)
[2025-01-03] MEDS: DEX/HYPRO/GLY ARTIFICAL TEARS 225 DROP/15 ML BTL BOTH EYES ×2 (09:02→20:56)
[2025-01-03] MEDS: diphenhydrAMINE 25 MG TABLET GT (10:00)
--- NOTE | 2025-01-03 12:57 | PC.NURSE ---
Resident received his last dose of IV Vancomycin without any reaction noted during infusion. Pre-medicated with Benadryl as ordered by MD. Tolerated well.
--- NOTE | 2025-01-03 19:16 | PD.SAPROG ---
Progress Note - SubAcute DIAGNOSIS (1) Acute arterial ischemic stroke, vertebrobasilar, brainstem: Status: Chronic Qualifiers: Laterality: left Qualified Code(s): I63.212 - Cerebral infarction due to unspecified occlusion or stenosis of left vertebral artery; I63.22 - Cerebral infarction due to unspecified occlusion or stenosis of basilar artery (2) Seizures, generalized convulsive: Status: Chronic (3) Chronic respiratory failure: Status: Chronic Qualifiers: Respiratory failure complication: unspecified whether with hypoxia or hypercapnia Qualified Code(s): J96.10 - Chronic respiratory failure, unspecified whether with hypoxia or hypercapnia (4) Altered glucose metabolism due to diabetes: Status: Chronic (5) Encephalopathy: Status: Chronic (6) Decubital ulcer: Status: Chronic (7) G tube feedings: Status: Chronic (8) Tracheostomy in place: Status: Chronic SUBJECTIVE Fever:: none Shortness of Breath:: none Pain:: none OBJECTIVE Most recent vital signs: Last Vital Signs Temp 98.9 F 01/03/25 17:46 Pulse 76 01/03/25 17:46 Resp 20 01/03/25 17:46 BP 144/69 H 01/03/25 17:46 Pulse Ox 92 L 01/03/25 17:46 O2 Del Method Room Air 01/03/25 17:46 O2 Flow Rate 6 01/03/25 12:35 FiO2 28 01/03/25 12:35 Speech:: mouths words (sometimes) Answers questions:: sometimes (mostly by gestures) Respiratory:: lungs clear Cardiovascular: RRR Abdomen: soft Tracheostomy:: to blow by Feeding per:: G tube ASSESSMENT & PLAN Assessment: Pt seems to be fairly stable with all above diagnosis and with limited /guarded prognosis for recovery to independent living and needs all support. Family supportive Denies any pain. VSS 11-11-24 Met with family in pt's room and updated them as well as answered all questions. Reiterated limited prognosis for independent living. Neurology input on prognostic outlook and medication review followed. Repeat CT head ordered by neurologist was done and results discussed with the Neurologist who confirmed stable changes and recommended no change on medicine. This was updated with the family the No new issues , Talked with family at bedside and updated them. VSS. Started on Melatonin q hs 3 mgs prn to facilitate sleep. Pt had fever due to E. faecalis UTI and started on Vancomycin 1gm IVPB q 12 hourly on 12-28-24 Responding well. Plan: Full support medical/nutritional and emotional towards maintaining some quality of life
[2025-01-03] MEDS: MELATONIN 3 MG TABLET GT (20:54)
[2025-01-03] MEDS: ATORVASTATIN 40 MG TABLET GT (20:56)
[2025-01-04] VITALS (8 sets, daily range): BP systolic 125–136; BP diastolic 65–71; PULSE 58–70; RESP 18–20; TEMP 36.4–36.6; O2SAT 94–100
[2025-01-04] MEDS: IPRATROPIUM/ALBUTEROL 3 ML AMPUL.NEB INH ×4 (02:13→18:47)
[2025-01-04] MEDS: LEVOTHYROXINE 200 MCG TABLET GT (05:36)
[2025-01-04] MEDS: DEX/HYPRO/GLY ARTIFICAL TEARS 225 DROP/15 ML BTL BOTH EYES ×2 (09:16→20:50)
[2025-01-04] MEDS: AMIODARONE 200 MG TABLET 400 MG GT (09:16)
[2025-01-04] MEDS: CHOLECALCIFEROL (VITAMIN D3) 25 MCG TABLET GT (09:16)
[2025-01-04] MEDS: APIXABAN 5 MG TABLET GT ×2 (09:16→20:50)
[2025-01-04] MEDS: SENNOSIDES 8.6 MG TABLET GT ×2 (09:17→20:51)
[2025-01-04] MEDS: CLOPIDOGREL BISULFATE 75 MG TABLET GT (09:17)
[2025-01-04] MEDS: ATORVASTATIN 40 MG TABLET GT (20:50)
[2025-01-04] MEDS: MAGNESIUM HYDROXIDE 30 ML ORAL SUSP ML GT (20:52)
[2025-01-04] MEDS: ACETAMINOPHEN 325 MG TABLET 650 MG GT (20:55)
[2025-01-05] VITALS (9 sets, daily range): BP systolic 124–137; BP diastolic 59–75; PULSE 60–76; RESP 17–20; TEMP 36.6–36.9; O2SAT 95–100
[2025-01-05] MEDS: IPRATROPIUM/ALBUTEROL 3 ML AMPUL.NEB INH ×4 (01:40→17:23)
[2025-01-05] MEDS: LEVOTHYROXINE 200 MCG TABLET GT (05:39)
[2025-01-05] MEDS: CHOLECALCIFEROL (VITAMIN D3) 25 MCG TABLET GT (08:31)
[2025-01-05] MEDS: AMIODARONE 200 MG TABLET 400 MG GT (08:31)
[2025-01-05] MEDS: APIXABAN 5 MG TABLET GT ×2 (08:31→20:48)
[2025-01-05] MEDS: DEX/HYPRO/GLY ARTIFICAL TEARS 225 DROP/15 ML BTL BOTH EYES ×2 (08:32→20:48)
[2025-01-05] MEDS: SENNOSIDES 8.6 MG TABLET GT ×2 (08:32→20:49)
[2025-01-05] MEDS: CLOPIDOGREL BISULFATE 75 MG TABLET GT (08:32)
--- NOTE | 2025-01-05 12:00 | PC.IP ---
Resident completed course of Vancomycin IV twice daily for Enterococcus faecalis in urine. No indication of further febrile illness.
[2025-01-05] MEDS: ATORVASTATIN 40 MG TABLET GT (20:48)
[2025-01-05] MEDS: MELATONIN 3 MG TABLET GT (20:49)
[2025-01-06] VITALS (7 sets, daily range): BP systolic 124–140; BP diastolic 66–70; PULSE 62–80; RESP 18–20; TEMP 36.7–36.8; O2SAT 96–100
[2025-01-06] MEDS: IPRATROPIUM/ALBUTEROL 3 ML AMPUL.NEB INH ×4 (00:34→17:02)
[2025-01-06] MEDS: LEVOTHYROXINE 200 MCG TABLET GT (05:36)
[2025-01-06 07:57] LABS: Thyroid Stimulating Hormone 1.47 uIU/mL (0.55-4.78)
[2025-01-06] MEDS: AMIODARONE 200 MG TABLET 400 MG GT (08:38)
[2025-01-06] MEDS: APIXABAN 5 MG TABLET GT ×2 (08:38→20:45)
[2025-01-06] MEDS: SENNOSIDES 8.6 MG TABLET GT ×2 (08:39→20:47)
[2025-01-06] MEDS: CHOLECALCIFEROL (VITAMIN D3) 25 MCG TABLET GT (08:39)
[2025-01-06] MEDS: DEX/HYPRO/GLY ARTIFICAL TEARS 225 DROP/15 ML BTL BOTH EYES ×2 (08:39→20:46)
[2025-01-06] MEDS: CLOPIDOGREL BISULFATE 75 MG TABLET GT (08:39)
[2025-01-06] MEDS: INSULIN REGULAR, HUMAN 100 UNIT/ML VIAL SC (17:58)
[2025-01-06] MEDS: ATORVASTATIN 40 MG TABLET GT (20:46)
[2025-01-06] MEDS: MELATONIN 3 MG TABLET GT (22:15)
[2025-01-07] VITALS (9 sets, daily range): BP systolic 96–138; BP diastolic 68–72; PULSE 56–75; RESP 16–20; TEMP 36.4–36.7; O2SAT 96–99
[2025-01-07] MEDS: IPRATROPIUM/ALBUTEROL 3 ML AMPUL.NEB INH ×4 (00:17→19:16)
[2025-01-07] MEDS: LEVOTHYROXINE 200 MCG TABLET GT (05:16)
[2025-01-07] MEDS: AMIODARONE 200 MG TABLET 400 MG GT (10:10)
[2025-01-07] MEDS: APIXABAN 5 MG TABLET GT ×2 (10:12→21:18)
[2025-01-07] MEDS: CLOPIDOGREL BISULFATE 75 MG TABLET GT (10:12)
[2025-01-07] MEDS: DEX/HYPRO/GLY ARTIFICAL TEARS 225 DROP/15 ML BTL BOTH EYES ×2 (10:15→21:19)
[2025-01-07] MEDS: SENNOSIDES 8.6 MG TABLET GT ×2 (10:18→21:20)
[2025-01-07] MEDS: CHOLECALCIFEROL (VITAMIN D3) 25 MCG TABLET GT (10:18)
--- NOTE | 2025-01-07 17:03 | PC.NURSE ---
Itzel MCDONNELL . informed global technical writer had a conversation with resident's . voiced 2 concerns regarding resident's condition. Filler Spreader spoke to residents . #1 getting concern about her behavior at times , She stated his sudden aggressive behavior at times. she would like to have a conversation with The doctor or specialist regards this change of behavior which is noted by nursing staff at times. Noted to get anxious suddenly at times. #2 asking about AVC filter placed at the previous facility needs check up. Filler Spreader will notify MD for further orders. Reassured resident's we will follow up and address her concerns As soon as possible.
--- NOTE | 2025-01-07 20:42 | PD.SAPROG ---
Progress Note - SubAcute DIAGNOSIS (1) Acute arterial ischemic stroke, vertebrobasilar, brainstem: Status: Chronic Qualifiers: Laterality: left Qualified Code(s): I63.212 - Cerebral infarction due to unspecified occlusion or stenosis of left vertebral artery; I63.22 - Cerebral infarction due to unspecified occlusion or stenosis of basilar artery (2) Seizures, generalized convulsive: Status: Chronic (3) Chronic respiratory failure: Status: Chronic Qualifiers: Respiratory failure complication: unspecified whether with hypoxia or hypercapnia Qualified Code(s): J96.10 - Chronic respiratory failure, unspecified whether with hypoxia or hypercapnia (4) Altered glucose metabolism due to diabetes: Status: Chronic (5) Encephalopathy: Status: Chronic (6) Decubital ulcer: Status: Chronic (7) G tube feedings: Status: Chronic (8) Tracheostomy in place: Status: Chronic SUBJECTIVE Fever:: none Shortness of Breath:: none Pain:: none OBJECTIVE Most recent vital signs: Last Vital Signs Temp 97.6 F 01/07/25 18:00 Pulse 69 01/07/25 19:17 Resp 18 01/07/25 19:17 BP 96/70 01/07/25 18:00 Pulse Ox 99 01/07/25 19:17 O2 Del Method Blow-by 01/07/25 18:00 O2 Flow Rate 6 01/07/25 19:17 FiO2 28 01/07/25 19:17 Speech:: mouths words (sometimes) Answers questions:: sometimes (mostly by gestures) Respiratory:: lungs clear Cardiovascular: RRR Abdomen: soft Tracheostomy:: to blow by Feeding per:: G tube ASSESSMENT & PLAN Assessment: Pt seems to be fairly stable with all above diagnosis and with limited /guarded prognosis for recovery to independent living and needs all support. Family supportive Denies any pain. VSS 11-11-24 Met with family in pt's room and updated them as well as answered all questions. Reiterated limited prognosis for independent living. Neurology input on prognostic outlook and medication review followed. Repeat CT head ordered by neurologist was done and results discussed with the Neurologist who confirmed stable changes and recommended no change on medicine. This was updated with the family the No new issues , Talked with family at bedside and updated them. VSS. Started on Melatonin q hs 3 mgs prn to facilitate sleep. Pt had fever due to E. faecalis UTI and started on Vancomycin 1gm IVPB q 12 hourly on 12-28-24 Responding well. Plan: Full support medical/nutritional and emotional towards maintaining some quality of life
[2025-01-07] MEDS: ATORVASTATIN 40 MG TABLET GT (21:19)
[2025-01-07] MEDS: MELATONIN 3 MG TABLET GT (21:20)
[2025-01-08] VITALS (7 sets, daily range): BP systolic 115–125; BP diastolic 60–67; PULSE 59–81; RESP 16–20; TEMP 36.3–36.6; O2SAT 96–99
[2025-01-08] MEDS: IPRATROPIUM/ALBUTEROL 3 ML AMPUL.NEB INH ×4 (00:04→19:48)
[2025-01-08] MEDS: LEVOTHYROXINE 200 MCG TABLET GT (05:21)
--- NOTE | 2025-01-08 07:42 | PC.SS ---
Room visit: Resident is laying in bed with head of the bed elevated with call light properly placed with no signs of distress. Resident remains on blow by with trach in place and GT for medication and nutrition. He is able to make simple needs known, he is represented by his who makes all decisions for him. Resident will remain in current care and will continue to have all subacute care needs met by staff. This SSD will continue to make contact with resident and offer support as needed.
[2025-01-08] MEDS: APIXABAN 5 MG TABLET GT ×2 (08:43→20:48)
[2025-01-08] MEDS: CLOPIDOGREL BISULFATE 75 MG TABLET GT (08:43)
[2025-01-08] MEDS: AMIODARONE 200 MG TABLET 400 MG GT (08:43)
[2025-01-08] MEDS: DEX/HYPRO/GLY ARTIFICAL TEARS 225 DROP/15 ML BTL BOTH EYES ×2 (08:43→20:48)
[2025-01-08] MEDS: CHOLECALCIFEROL (VITAMIN D3) 25 MCG TABLET GT (08:43)
[2025-01-08] MEDS: SENNOSIDES 8.6 MG TABLET GT ×2 (08:45→20:48)
[2025-01-08] MEDS: MAGNESIUM HYDROXIDE 30 ML ORAL SUSP ML GT (08:45)
[2025-01-08] MEDS: ATORVASTATIN 40 MG TABLET GT (20:48)
[2025-01-08] MEDS: MELATONIN 3 MG TABLET GT (20:49)
[2025-01-08] MEDS: BISACODYL 10 MG SUPP.RECT PR (23:35)
[2025-01-09] VITALS (9 sets, daily range): BP systolic 129–153; BP diastolic 68–78; PULSE 65–92; RESP 16–18; TEMP 36.4–36.9; O2SAT 93–99
[2025-01-09] MEDS: IPRATROPIUM/ALBUTEROL 3 ML AMPUL.NEB INH ×4 (01:02→18:00)
[2025-01-09] MEDS: LEVOTHYROXINE 200 MCG TABLET GT (05:03)
[2025-01-09] MEDS: AMIODARONE 200 MG TABLET 400 MG GT (08:20)
[2025-01-09] MEDS: SENNOSIDES 8.6 MG TABLET GT ×2 (08:21→21:05)
[2025-01-09] MEDS: APIXABAN 5 MG TABLET GT ×2 (08:22→21:04)
[2025-01-09] MEDS: CLOPIDOGREL BISULFATE 75 MG TABLET GT (08:22)
[2025-01-09] MEDS: DEX/HYPRO/GLY ARTIFICAL TEARS 225 DROP/15 ML BTL BOTH EYES ×2 (08:22→21:04)
[2025-01-09] MEDS: CHOLECALCIFEROL (VITAMIN D3) 25 MCG TABLET GT (08:22)
[2025-01-09] MEDS: SODIUM PHOSPHATE,MONO-DIBASIC 133 ML ENEMA PR (15:00)
[2025-01-09] MEDS: ATORVASTATIN 40 MG TABLET GT (21:04)
[2025-01-10] VITALS (9 sets, daily range): BP systolic 115–147; BP diastolic 57–69; PULSE 58–92; RESP 16–20; TEMP 36.3–36.6; O2SAT 95–100
[2025-01-10] MEDS: IPRATROPIUM/ALBUTEROL 3 ML AMPUL.NEB INH ×4 (01:53→19:01)
[2025-01-10] MEDS: LEVOTHYROXINE 200 MCG TABLET GT (05:34)
[2025-01-10] MEDS: AMIODARONE 200 MG TABLET 400 MG GT (09:32)
[2025-01-10] MEDS: SENNOSIDES 8.6 MG TABLET GT ×2 (09:33→20:32)
[2025-01-10] MEDS: CHOLECALCIFEROL (VITAMIN D3) 25 MCG TABLET GT (09:33)
[2025-01-10] MEDS: APIXABAN 5 MG TABLET GT ×2 (09:33→20:30)
[2025-01-10] MEDS: CLOPIDOGREL BISULFATE 75 MG TABLET GT (09:33)
[2025-01-10] MEDS: ACETAMINOPHEN 325 MG TABLET 650 MG GT (13:38)
[2025-01-10] MEDS: ATORVASTATIN 40 MG TABLET GT (20:30)
[2025-01-10] MEDS: DEX/HYPRO/GLY ARTIFICAL TEARS 225 DROP/15 ML BTL BOTH EYES (20:30)
[2025-01-10] MEDS: MELATONIN 3 MG TABLET GT (20:33)
[2025-01-11] VITALS (9 sets, daily range): BP systolic 115–126; BP diastolic 60–70; PULSE 58–80; RESP 16–19; TEMP 36–36.8; O2SAT 96–100
[2025-01-11] MEDS: IPRATROPIUM/ALBUTEROL 3 ML AMPUL.NEB INH ×4 (00:33→19:00)
[2025-01-11] MEDS: LEVOTHYROXINE 200 MCG TABLET GT (05:05)
[2025-01-11] MEDS: AMIODARONE 200 MG TABLET 400 MG GT (08:50)
[2025-01-11] MEDS: CHOLECALCIFEROL (VITAMIN D3) 25 MCG TABLET GT (08:51)
[2025-01-11] MEDS: APIXABAN 5 MG TABLET GT ×2 (08:51→20:46)
[2025-01-11] MEDS: CLOPIDOGREL BISULFATE 75 MG TABLET GT (08:51)
[2025-01-11] MEDS: DEX/HYPRO/GLY ARTIFICAL TEARS 225 DROP/15 ML BTL BOTH EYES ×2 (08:51→20:47)
[2025-01-11] MEDS: SENNOSIDES 8.6 MG TABLET GT ×2 (08:52→20:47)
[2025-01-11] MEDS: ATORVASTATIN 40 MG TABLET GT (20:47)
[2025-01-11] MEDS: MELATONIN 3 MG TABLET GT (20:48)
[2025-01-11] MEDS: MAGNESIUM HYDROXIDE 30 ML ORAL SUSP ML GT (20:49)
[2025-01-12] VITALS (9 sets, daily range): BP systolic 110–133; BP diastolic 60–71; PULSE 58–92; RESP 16–20; TEMP 36.6–37.1; O2SAT 97–99
[2025-01-12] MEDS: IPRATROPIUM/ALBUTEROL 3 ML AMPUL.NEB INH ×4 (00:25→19:54)
[2025-01-12] MEDS: LEVOTHYROXINE 200 MCG TABLET GT (05:17)
[2025-01-12] MEDS: AMIODARONE 200 MG TABLET 400 MG GT (09:29)
[2025-01-12] MEDS: APIXABAN 5 MG TABLET GT ×2 (09:29→21:06)
[2025-01-12] MEDS: CHOLECALCIFEROL (VITAMIN D3) 25 MCG TABLET GT (09:30)
[2025-01-12] MEDS: DEX/HYPRO/GLY ARTIFICAL TEARS 225 DROP/15 ML BTL BOTH EYES ×2 (09:30→21:07)
[2025-01-12] MEDS: CLOPIDOGREL BISULFATE 75 MG TABLET GT (09:30)
[2025-01-12] MEDS: SENNOSIDES 8.6 MG TABLET GT ×2 (09:31→21:07)
--- NOTE | 2025-01-12 20:46 | PD.SAPROG ---
Progress Note - SubAcute DIAGNOSIS (1) Acute arterial ischemic stroke, vertebrobasilar, brainstem: Status: Chronic Qualifiers: Laterality: left Qualified Code(s): I63.212 - Cerebral infarction due to unspecified occlusion or stenosis of left vertebral artery; I63.22 - Cerebral infarction due to unspecified occlusion or stenosis of basilar artery (2) Seizures, generalized convulsive: Status: Chronic (3) Chronic respiratory failure: Status: Chronic Qualifiers: Respiratory failure complication: unspecified whether with hypoxia or hypercapnia Qualified Code(s): J96.10 - Chronic respiratory failure, unspecified whether with hypoxia or hypercapnia (4) Altered glucose metabolism due to diabetes: Status: Chronic (5) Encephalopathy: Status: Chronic (6) Decubital ulcer: Status: Chronic (7) G tube feedings: Status: Chronic (8) Tracheostomy in place: Status: Chronic SUBJECTIVE Fever:: none Shortness of Breath:: none Pain:: none OBJECTIVE Most recent vital signs: Last Vital Signs Temp 98.8 F 01/12/25 18:00 Pulse 64 01/12/25 18:00 Resp 19 01/12/25 18:00 BP 119/68 01/12/25 18:00 Pulse Ox 99 01/12/25 12:30 O2 Del Method Blow-by 01/10/25 05:55 O2 Flow Rate 6 01/12/25 12:30 FiO2 28 01/12/25 12:30 Speech:: mouths words (sometimes) Answers questions:: sometimes (mostly by gestures) Respiratory:: lungs clear Cardiovascular: RRR Abdomen: soft Tracheostomy:: to blow by Feeding per:: G tube ASSESSMENT & PLAN Assessment: Pt seems to be fairly stable with all above diagnosis and with limited /guarded prognosis for recovery to independent living and needs all support. Family supportive Denies any pain. VSS 11-11-24 Met with family in pt's room and updated them as well as answered all questions. Reiterated limited prognosis for independent living. Neurology input on prognostic outlook and medication review followed. Repeat CT head ordered by neurologist was done and results discussed with the Neurologist who confirmed stable changes and recommended no change on medicine. This was updated with the family the No new issues , Talked with family at bedside and updated them. VSS. Started on Melatonin q hs 3 mgs prn to facilitate sleep. Pt had fever due to E. faecalis UTI and started on Vancomycin 1gm IVPB q 12 hourly on 12-28-24 Responding well. Plan: Full support medical/nutritional and emotional towards maintaining some quality of life
[2025-01-12] MEDS: ATORVASTATIN 40 MG TABLET GT (21:06)
[2025-01-12] MEDS: MELATONIN 3 MG TABLET GT (21:07)
[2025-01-13] VITALS (10 sets, daily range): BP systolic 111–139; BP diastolic 57–72; PULSE 59–74; RESP 16–20; TEMP 36.5–36.8; O2SAT 95–100; BMI 12.0
[2025-01-13] MEDS: IPRATROPIUM/ALBUTEROL 3 ML AMPUL.NEB INH ×4 (00:41→18:31)
[2025-01-13] MEDS: LEVOTHYROXINE 200 MCG TABLET GT (05:37)
[2025-01-13] MEDS: AMIODARONE 200 MG TABLET 400 MG GT (08:21)
[2025-01-13] MEDS: CHOLECALCIFEROL (VITAMIN D3) 25 MCG TABLET GT (08:22)
[2025-01-13] MEDS: APIXABAN 5 MG TABLET GT ×2 (08:22→21:01)
[2025-01-13] MEDS: SENNOSIDES 8.6 MG TABLET GT ×2 (08:23→21:02)
[2025-01-13] MEDS: DEX/HYPRO/GLY ARTIFICAL TEARS 225 DROP/15 ML BTL BOTH EYES ×2 (08:23→21:01)
[2025-01-13] MEDS: CLOPIDOGREL BISULFATE 75 MG TABLET GT (08:23)
--- NOTE | 2025-01-13 17:12 | PC.PT ---
Patient will be dc from PT services secondary to patient reached maximum rehab potential.
[2025-01-13] MEDS: INSULIN REGULAR, HUMAN 100 UNIT/ML VIAL SC (17:14)
[2025-01-13] MEDS: ATORVASTATIN 40 MG TABLET GT (21:01)
[2025-01-13] MEDS: MELATONIN 3 MG TABLET GT (21:02)
--- NOTE | 2025-01-13 22:55 | PD.SAPROG ---
Progress Note - SubAcute DIAGNOSIS (1) Acute arterial ischemic stroke, vertebrobasilar, brainstem: Status: Chronic Qualifiers: Laterality: left Qualified Code(s): I63.212 - Cerebral infarction due to unspecified occlusion or stenosis of left vertebral artery; I63.22 - Cerebral infarction due to unspecified occlusion or stenosis of basilar artery (2) Seizures, generalized convulsive: Status: Chronic (3) Chronic respiratory failure: Status: Chronic Qualifiers: Respiratory failure complication: unspecified whether with hypoxia or hypercapnia Qualified Code(s): J96.10 - Chronic respiratory failure, unspecified whether with hypoxia or hypercapnia (4) Altered glucose metabolism due to diabetes: Status: Chronic (5) Encephalopathy: Status: Chronic (6) Decubital ulcer: Status: Chronic (7) G tube feedings: Status: Chronic (8) Tracheostomy in place: Status: Chronic SUBJECTIVE Fever:: none Shortness of Breath:: none Pain:: none OBJECTIVE Most recent vital signs: Last Vital Signs Temp 97.9 F 01/13/25 17:53 Pulse 74 01/13/25 18:31 Resp 18 01/13/25 18:31 BP 111/57 L 01/13/25 17:53 Pulse Ox 100 01/13/25 18:31 O2 Del Method Blow-by 01/10/25 05:55 O2 Flow Rate 6 01/13/25 18:31 FiO2 28 01/13/25 18:31 Speech:: mouths words (sometimes) Answers questions:: sometimes (mostly by gestures) Respiratory:: lungs clear Cardiovascular: RRR Abdomen: soft Tracheostomy:: to blow by Feeding per:: G tube ASSESSMENT & PLAN Assessment: Pt seems to be fairly stable with all above diagnosis and with limited /guarded prognosis for recovery to independent living and needs all support. Family supportive Denies any pain. VSS 11-11-24 Met with family in pt's room and updated them as well as answered all questions. Reiterated limited prognosis for independent living. Neurology input on prognostic outlook and medication review followed. Repeat CT head ordered by neurologist was done and results discussed with the Neurologist who confirmed stable changes and recommended no change on medicine. This was updated with the family the No new issues , Talked with family at bedside and updated them. VSS. Started on Melatonin q hs 3 mgs prn to facilitate sleep. Pt had fever due to E. faecalis UTI and started on Vancomycin 1gm IVPB q 12 hourly on 12-28-24 Responding well. Plan: Full support medical/nutritional and emotional towards maintaining some quality of life
[2025-01-14] VITALS (9 sets, daily range): BP systolic 116–122; BP diastolic 61–77; PULSE 52–81; RESP 17–19; TEMP 36.1–36.8; O2SAT 97–100
[2025-01-14] MEDS: IPRATROPIUM/ALBUTEROL 3 ML AMPUL.NEB INH ×4 (00:10→18:36)
[2025-01-14] MEDS: LEVOTHYROXINE 200 MCG TABLET GT (05:35)
[2025-01-14] MEDS: AMIODARONE 200 MG TABLET 400 MG GT (08:52)
[2025-01-14] MEDS: APIXABAN 5 MG TABLET GT ×2 (08:53→21:34)
[2025-01-14] MEDS: CHOLECALCIFEROL (VITAMIN D3) 25 MCG TABLET GT (08:53)
[2025-01-14] MEDS: DEX/HYPRO/GLY ARTIFICAL TEARS 225 DROP/15 ML BTL BOTH EYES ×2 (08:54→21:34)
[2025-01-14] MEDS: SENNOSIDES 8.6 MG TABLET GT ×2 (08:54→21:34)
[2025-01-14] MEDS: CLOPIDOGREL BISULFATE 75 MG TABLET GT (08:54)
[2025-01-14] MEDS: ATORVASTATIN 40 MG TABLET GT (21:34)
[2025-01-15] VITALS (9 sets, daily range): BP systolic 118–144; BP diastolic 65–74; PULSE 58–80; RESP 17–20; TEMP 36.6–36.8; O2SAT 97–100
[2025-01-15] MEDS: IPRATROPIUM/ALBUTEROL 3 ML AMPUL.NEB INH ×4 (00:59→18:43)
[2025-01-15] MEDS: INSULIN REGULAR, HUMAN 100 UNIT/ML VIAL SC (05:22)
[2025-01-15] MEDS: LEVOTHYROXINE 200 MCG TABLET GT (05:22)
[2025-01-15] MEDS: AMIODARONE 200 MG TABLET 400 MG GT (09:34)
[2025-01-15] MEDS: SENNOSIDES 8.6 MG TABLET GT ×2 (09:35→20:32)
[2025-01-15] MEDS: CLOPIDOGREL BISULFATE 75 MG TABLET GT (09:35)
[2025-01-15] MEDS: APIXABAN 5 MG TABLET GT ×2 (09:35→20:30)
[2025-01-15] MEDS: CHOLECALCIFEROL (VITAMIN D3) 25 MCG TABLET GT (09:35)
[2025-01-15] MEDS: DEX/HYPRO/GLY ARTIFICAL TEARS 225 DROP/15 ML BTL BOTH EYES ×2 (09:35→20:31)
[2025-01-15] MEDS: MAGNESIUM HYDROXIDE 30 ML ORAL SUSP ML GT (09:36)
[2025-01-15] MEDS: ATORVASTATIN 40 MG TABLET GT (20:31)
[2025-01-15] MEDS: MELATONIN 3 MG TABLET GT (20:33)
[2025-01-16] VITALS (9 sets, daily range): BP systolic 112–148; BP diastolic 57–78; PULSE 56–80; RESP 17–20; TEMP 36.4–36.9; O2SAT 96–99
[2025-01-16] MEDS: IPRATROPIUM/ALBUTEROL 3 ML AMPUL.NEB INH ×4 (00:44→18:22)
[2025-01-16] MEDS: BISACODYL 10 MG SUPP.RECT PR (02:05)
[2025-01-16] MEDS: LEVOTHYROXINE 200 MCG TABLET GT (05:10)
[2025-01-16] MEDS: APIXABAN 5 MG TABLET GT ×2 (08:39→21:04)
[2025-01-16] MEDS: AMIODARONE 200 MG TABLET 400 MG GT (08:39)
[2025-01-16] MEDS: DEX/HYPRO/GLY ARTIFICAL TEARS 225 DROP/15 ML BTL BOTH EYES ×2 (08:40→21:04)
[2025-01-16] MEDS: CHOLECALCIFEROL (VITAMIN D3) 25 MCG TABLET GT (08:40)
[2025-01-16] MEDS: SENNOSIDES 8.6 MG TABLET GT ×2 (08:40→21:04)
[2025-01-16] MEDS: CLOPIDOGREL BISULFATE 75 MG TABLET GT (08:40)
[2025-01-16] MEDS: ACETAMINOPHEN 325 MG TABLET 650 MG GT (15:50)
[2025-01-16] MEDS: MELATONIN 3 MG TABLET GT (21:04)
[2025-01-16] MEDS: ATORVASTATIN 40 MG TABLET GT (21:04)
[2025-01-17] VITALS (8 sets, daily range): BP systolic 111–148; BP diastolic 57–76; PULSE 61–88; RESP 18–20; TEMP 36.2–37.1; O2SAT 93–100
[2025-01-17] MEDS: IPRATROPIUM/ALBUTEROL 3 ML AMPUL.NEB INH ×4 (00:03→18:17)
[2025-01-17] MEDS: LEVOTHYROXINE 200 MCG TABLET GT (05:02)
[2025-01-17] MEDS: AMIODARONE 200 MG TABLET 400 MG GT (09:20)
[2025-01-17] MEDS: CHOLECALCIFEROL (VITAMIN D3) 25 MCG TABLET GT (09:21)
[2025-01-17] MEDS: SENNOSIDES 8.6 MG TABLET GT ×2 (09:21→21:23)
[2025-01-17] MEDS: CLOPIDOGREL BISULFATE 75 MG TABLET GT (09:21)
[2025-01-17] MEDS: DEX/HYPRO/GLY ARTIFICAL TEARS 225 DROP/15 ML BTL BOTH EYES ×2 (09:21→21:22)
[2025-01-17] MEDS: APIXABAN 5 MG TABLET GT ×2 (09:21→21:21)
--- NOTE | 2025-01-17 12:20 | PD.SAPROG ---
Progress Note - SubAcute DIAGNOSIS (1) Acute arterial ischemic stroke, vertebrobasilar, brainstem: Status: Chronic Qualifiers: Laterality: left Qualified Code(s): I63.212 - Cerebral infarction due to unspecified occlusion or stenosis of left vertebral artery; I63.22 - Cerebral infarction due to unspecified occlusion or stenosis of basilar artery (2) Seizures, generalized convulsive: Status: Chronic (3) Chronic respiratory failure: Status: Chronic Qualifiers: Respiratory failure complication: unspecified whether with hypoxia or hypercapnia Qualified Code(s): J96.10 - Chronic respiratory failure, unspecified whether with hypoxia or hypercapnia (4) Altered glucose metabolism due to diabetes: Status: Chronic (5) Encephalopathy: Status: Chronic (6) Decubital ulcer: Status: Chronic (7) G tube feedings: Status: Chronic (8) Tracheostomy in place: Status: Chronic SUBJECTIVE Fever:: none Shortness of Breath:: none Pain:: none OBJECTIVE Most recent vital signs: Last Vital Signs Temp 97.4 F 01/18/25 06:00 Pulse 91 01/18/25 08:36 Resp 20 01/18/25 06:00 BP 128/70 01/18/25 08:36 Pulse Ox 95 01/18/25 06:00 O2 Del Method Blow-by 01/18/25 06:00 O2 Flow Rate 6 01/18/25 00:07 FiO2 28 01/18/25 00:07 Speech:: mouths words (sometimes) Answers questions:: sometimes (mostly by gestures) Respiratory:: lungs clear Cardiovascular: RRR Abdomen: soft Tracheostomy:: to blow by Feeding per:: G tube ASSESSMENT & PLAN Assessment: Pt seems to be fairly stable with all above diagnosis and with limited /guarded prognosis for recovery to independent living and needs all support. Family supportive Denies any pain. VSS 11-11-24 Met with family in pt's room and updated them as well as answered all questions. Reiterated limited prognosis for independent living. Neurology input on prognostic outlook and medication review followed. Repeat CT head ordered by neurologist was done and results discussed with the Neurologist who confirmed stable changes and recommended no change on medicine. This was updated with the family the No new issues , Talked with family at bedside and updated them. VSS. Started on Melatonin q hs 3 mgs prn to facilitate sleep. Pt had fever due to E. faecalis UTI and started on Vancomycin 1gm IVPB q 12 hourly on 12-28-24 Responding well. Plan: Full support medical/nutritional and emotional towards maintaining some quality of life
[2025-01-17] MEDS: ATORVASTATIN 40 MG TABLET GT (21:22)
[2025-01-17] MEDS: MELATONIN 3 MG TABLET GT (21:23)
[2025-01-18] VITALS: BP 129/74; PULSE 72; RESP 20; TEMP 36.4
[2025-01-18 00:07] VITALS: PULSE 86; RESP 19; O2SAT 97; O2SAT 99
[2025-01-18] MEDS: IPRATROPIUM/ALBUTEROL 3 ML AMPUL.NEB INH ×4 (00:07→16:51)
[2025-01-18] MEDS: LEVOTHYROXINE 200 MCG TABLET GT (05:40)
[2025-01-18 06:00] VITALS: BP 145/60; PULSE 80; RESP 20; TEMP 36.3; O2SAT 95
[2025-01-18 08:36] VITALS: BP 128/70; PULSE 91
[2025-01-18] MEDS: APIXABAN 5 MG TABLET GT ×2 (08:36→21:39)
[2025-01-18] MEDS: AMIODARONE 200 MG TABLET 400 MG GT (08:36)
[2025-01-18] MEDS: DEX/HYPRO/GLY ARTIFICAL TEARS 225 DROP/15 ML BTL BOTH EYES ×2 (08:37→20:34)
[2025-01-18] MEDS: CHOLECALCIFEROL (VITAMIN D3) 25 MCG TABLET GT (08:37)
[2025-01-18] MEDS: CLOPIDOGREL BISULFATE 75 MG TABLET GT (08:37)
[2025-01-18] MEDS: SENNOSIDES 8.6 MG TABLET GT ×2 (08:37→20:34)
[2025-01-18 16:51] VITALS: PULSE 68; PULSE 71; RESP 18; O2SAT 98; O2SAT 99
[2025-01-18] MEDS: ATORVASTATIN 40 MG TABLET GT (20:33)
[2025-01-18] MEDS: MAGNESIUM HYDROXIDE 30 ML ORAL SUSP ML GT (20:36)
[2025-01-19] VITALS (9 sets, daily range): BP systolic 110–143; BP diastolic 59–70; PULSE 65–81; RESP 16–19; TEMP 36.2–36.6; O2SAT 95–99
[2025-01-19] MEDS: IPRATROPIUM/ALBUTEROL 3 ML AMPUL.NEB INH ×4 (01:36→19:10)
[2025-01-19] MEDS: LEVOTHYROXINE 200 MCG TABLET GT (05:40)
[2025-01-19] MEDS: APIXABAN 5 MG TABLET GT ×2 (08:16→21:18)
[2025-01-19] MEDS: AMIODARONE 200 MG TABLET 400 MG GT (08:16)
[2025-01-19] MEDS: DEX/HYPRO/GLY ARTIFICAL TEARS 225 DROP/15 ML BTL BOTH EYES ×2 (08:17→21:19)
[2025-01-19] MEDS: CHOLECALCIFEROL (VITAMIN D3) 25 MCG TABLET GT (08:17)
[2025-01-19] MEDS: CLOPIDOGREL BISULFATE 75 MG TABLET GT (08:17)
[2025-01-19] MEDS: SENNOSIDES 8.6 MG TABLET GT ×2 (08:17→21:19)
[2025-01-19] MEDS: BISACODYL 10 MG SUPP.RECT PR (11:00)
[2025-01-19] MEDS: ATORVASTATIN 40 MG TABLET GT (21:18)
[2025-01-20] VITALS (7 sets, daily range): BP systolic 102–131; BP diastolic 53–66; PULSE 64–80; RESP 16–18; TEMP 36.6; O2SAT 95–99
[2025-01-20] MEDS: IPRATROPIUM/ALBUTEROL 3 ML AMPUL.NEB INH ×4 (00:53→19:19)
[2025-01-20] MEDS: INSULIN REGULAR, HUMAN 100 UNIT/ML VIAL SC ×2 (05:44→17:30)
[2025-01-20] MEDS: LEVOTHYROXINE 200 MCG TABLET GT (05:45)
[2025-01-20] MEDS: AMIODARONE 200 MG TABLET 400 MG GT (08:46)
[2025-01-20] MEDS: APIXABAN 5 MG TABLET GT ×2 (08:47→21:14)
[2025-01-20] MEDS: DEX/HYPRO/GLY ARTIFICAL TEARS 225 DROP/15 ML BTL BOTH EYES ×2 (08:47→21:14)
[2025-01-20] MEDS: CLOPIDOGREL BISULFATE 75 MG TABLET GT (08:47)
[2025-01-20] MEDS: SENNOSIDES 8.6 MG TABLET GT ×2 (08:47→21:15)
[2025-01-20] MEDS: CHOLECALCIFEROL (VITAMIN D3) 25 MCG TABLET GT (08:48)
--- NOTE | 2025-01-20 12:35 | PC.SS ---
Resident seen by DDS for routine dental care, no new orders or recommendations at this time to continue current care.
--- NOTE | 2025-01-20 13:23 | PC.SS ---
Resident was seen by sonar technician for routine follow consultation. No changes resident to continue current care.
[2025-01-20] MEDS: ATORVASTATIN 40 MG TABLET GT (21:14)
[2025-01-21] VITALS (9 sets, daily range): BP systolic 108–153; BP diastolic 64–77; PULSE 56–73; RESP 18–96; TEMP 36.2–36.9; O2SAT 96–100
[2025-01-21] MEDS: IPRATROPIUM/ALBUTEROL 3 ML AMPUL.NEB INH ×4 (01:00→18:56)
[2025-01-21] MEDS: LEVOTHYROXINE 200 MCG TABLET GT (05:30)
[2025-01-21] MEDS: CHOLECALCIFEROL (VITAMIN D3) 25 MCG TABLET GT (09:32)
[2025-01-21] MEDS: APIXABAN 5 MG TABLET GT ×2 (09:32→20:57)
[2025-01-21] MEDS: AMIODARONE 200 MG TABLET 400 MG GT (09:32)
[2025-01-21] MEDS: SENNOSIDES 8.6 MG TABLET GT ×2 (09:33→20:56)
[2025-01-21] MEDS: DEX/HYPRO/GLY ARTIFICAL TEARS 225 DROP/15 ML BTL BOTH EYES ×2 (09:33→20:56)
[2025-01-21] MEDS: CLOPIDOGREL BISULFATE 75 MG TABLET GT (09:33)
--- NOTE | 2025-01-21 16:26 | PC.SS ---
This SSD called [facility] to schedule follow up appointment for IVC filter placement. This SSD spoke with Syl who scheduled follow up appointment with Dr. Mckeon on June 24 @1030, they have asked resident to arrive 30 minutes early. This SSD is unable to make transportation reservation as his insurance allows for 30 days early. Transportation arrangements will need to be made for him to arrive at [address] [place] [address] phone number [phone] he will need to arrive 30 minutes early with a 10am arrival. This SSD will notify SHANNAN Li of appointment scheduled. Charge nurse made aware.
--- NOTE | 2025-01-21 17:33 | PD.SAPROG ---
Progress Note - SubAcute DIAGNOSIS (1) Acute arterial ischemic stroke, vertebrobasilar, brainstem: Status: Chronic Qualifiers: Laterality: left Qualified Code(s): I63.212 - Cerebral infarction due to unspecified occlusion or stenosis of left vertebral artery; I63.22 - Cerebral infarction due to unspecified occlusion or stenosis of basilar artery (2) Seizures, generalized convulsive: Status: Chronic (3) Chronic respiratory failure: Status: Chronic Qualifiers: Respiratory failure complication: unspecified whether with hypoxia or hypercapnia Qualified Code(s): J96.10 - Chronic respiratory failure, unspecified whether with hypoxia or hypercapnia (4) Altered glucose metabolism due to diabetes: Status: Chronic (5) Encephalopathy: Status: Chronic (6) Decubital ulcer: Status: Chronic (7) G tube feedings: Status: Chronic (8) Tracheostomy in place: Status: Chronic SUBJECTIVE Fever:: none Shortness of Breath:: none Pain:: none OBJECTIVE Most recent vital signs: Last Vital Signs Temp 98.4 F 01/21/25 12:00 Pulse 60 01/21/25 13:25 Resp 18 01/21/25 13:25 BP 108/64 01/21/25 12:00 Pulse Ox 99 01/21/25 13:25 O2 Del Method Blow-by 01/21/25 05:46 O2 Flow Rate 6 01/21/25 13:25 FiO2 28 01/21/25 13:25 Speech:: mouths words (sometimes) Answers questions:: sometimes (mostly by gestures) Respiratory:: lungs clear Cardiovascular: RRR Abdomen: soft Tracheostomy:: to blow by Feeding per:: G tube ASSESSMENT & PLAN Assessment: Pt seems to be fairly stable with all above diagnosis and with limited /guarded prognosis for recovery to independent living and needs all support. Family supportive Denies any pain. VSS 11-11-24 Met with family in pt's room and updated them as well as answered all questions. Reiterated limited prognosis for independent living. Neurology input on prognostic outlook and medication review followed. Repeat CT head ordered by neurologist was done and results discussed with the Neurologist who confirmed stable changes and recommended no change on medicine. This was updated with the family the No new issues , Talked with family at bedside and updated them. VSS. Started on Melatonin q hs 3 mgs prn to facilitate sleep. Pt had fever due to E. faecalis UTI and started on Vancomycin 1gm IVPB q 12 hourly on 12-28-24 Responding well. Plan: Full support medical/nutritional and emotional towards maintaining some quality of life
[2025-01-21] MEDS: INSULIN REGULAR, HUMAN 100 UNIT/ML VIAL SC (17:56)
[2025-01-21] MEDS: ATORVASTATIN 40 MG TABLET GT (20:56)
[2025-01-22] VITALS (8 sets, daily range): BP systolic 115–166; BP diastolic 65–77; PULSE 63–72; RESP 18–97; TEMP 36.3–36.7; O2SAT 96–100
[2025-01-22] MEDS: IPRATROPIUM/ALBUTEROL 3 ML AMPUL.NEB INH ×4 (00:49→19:27)
[2025-01-22] MEDS: MAGNESIUM HYDROXIDE 30 ML ORAL SUSP ML GT (05:08)
[2025-01-22] MEDS: LEVOTHYROXINE 200 MCG TABLET GT (05:14)
[2025-01-22] MEDS: INSULIN REGULAR, HUMAN 100 UNIT/ML VIAL SC (05:37)
[2025-01-22] MEDS: AMIODARONE 200 MG TABLET 400 MG GT (08:02)
[2025-01-22] MEDS: APIXABAN 5 MG TABLET GT ×2 (08:03→20:54)
[2025-01-22] MEDS: CLOPIDOGREL BISULFATE 75 MG TABLET GT (08:04)
[2025-01-22] MEDS: CHOLECALCIFEROL (VITAMIN D3) 25 MCG TABLET GT (08:04)
[2025-01-22] MEDS: SENNOSIDES 8.6 MG TABLET GT ×2 (08:05→20:55)
[2025-01-22] MEDS: DEX/HYPRO/GLY ARTIFICAL TEARS 225 DROP/15 ML BTL BOTH EYES ×2 (08:05→20:55)
[2025-01-22 19:17] LABS: Albumin, Serum 3.6 gm/dL (3.4-4.8); Anion Gap 6 (7-16); BUN/Creatinine Ratio 18 Ratio (12-20); Blood Urea Nitrogen 16 mg/dL (9-23); Calcium 8.7 mg/dL (8.3-10.6); Calcium (Corrected) 9.0 mg/dL (8.5-10.1); Carbon Dioxide 31.9 mMol/L (20.0-31.0); Chloride 106 mMol/L (98-107); Creatinine (Component) 0.9 mg/dL (0.6-1.3); Estimated Creatinine Clearance 87.6 mL/min (>60); Glucose 131 mg/dL (74-106); Osmolality,Calculated 290 (275-295); Phosphorous 3.4 mg/dL (2.4-5.1); Potassium 3.5 mMol/L (3.4-5.1); Sodium 144 mMol/L (136-145); eGFR > 60 See Note
[2025-01-22] MEDS: ATORVASTATIN 40 MG TABLET GT (20:55)
[2025-01-22] MEDS: MELATONIN 3 MG TABLET GT (20:56)
[2025-01-23] VITALS (9 sets, daily range): BP systolic 115–136; BP diastolic 58–77; PULSE 61–80; RESP 17–98; TEMP 36.2–36.6; O2SAT 95–99
[2025-01-23] MEDS: IPRATROPIUM/ALBUTEROL 3 ML AMPUL.NEB INH ×4 (01:33→20:03)
[2025-01-23] MEDS: BISACODYL 10 MG SUPP.RECT PR (02:38)
[2025-01-23] MEDS: LEVOTHYROXINE 200 MCG TABLET GT (05:12)
[2025-01-23 08:23] LABS: Glucose,Fasting 153 mg/dL (74-106)
[2025-01-23] MEDS: AMIODARONE 200 MG TABLET 400 MG GT (08:40)
[2025-01-23] MEDS: DEX/HYPRO/GLY ARTIFICAL TEARS 225 DROP/15 ML BTL BOTH EYES ×2 (08:41→21:13)
[2025-01-23] MEDS: CHOLECALCIFEROL (VITAMIN D3) 25 MCG TABLET GT (08:41)
[2025-01-23] MEDS: CLOPIDOGREL BISULFATE 75 MG TABLET GT (08:41)
[2025-01-23] MEDS: APIXABAN 5 MG TABLET GT ×2 (08:41→21:13)
[2025-01-23] MEDS: SENNOSIDES 8.6 MG TABLET GT ×2 (08:42→21:13)
--- NOTE | 2025-01-23 10:43 | PC.SS ---
This SSD informed resident continues to be anxious, he continues to wear bilateral mittens due to him pulling on trach and tubes. Family remains at bedside daily. This SSD will continue to monitor for changes in mood and behaviors.
--- NOTE | 2025-01-23 14:26 | PC.SS ---
Resident is laying in bed with head of the bed elevated with call light properly placed with no signs of distress. Resident has trach in place and GT for medication and nutrition. Resident has unclear speech unable to make decisions for self. Resident will remain in current care and will continue to have all subacute care needs met by staff. This SSD will make daily contact with resident and will monitor for changes in mood and behavior.
[2025-01-23] MEDS: INSULIN REGULAR, HUMAN 100 UNIT/ML VIAL SC (17:50)
[2025-01-23] MEDS: ATORVASTATIN 40 MG TABLET GT (21:13)
[2025-01-23] MEDS: MELATONIN 3 MG TABLET GT (21:14)
[2025-01-24] VITALS (8 sets, daily range): BP systolic 120–126; BP diastolic 61–69; PULSE 62–76; RESP 16–96; TEMP 36.2–36.8; O2SAT 94–99
[2025-01-24] MEDS: IPRATROPIUM/ALBUTEROL 3 ML AMPUL.NEB INH ×4 (00:34→18:48)
[2025-01-24] MEDS: LEVOTHYROXINE 200 MCG TABLET GT (05:04)
[2025-01-24] MEDS: SENNOSIDES 8.6 MG TABLET GT ×2 (09:39→21:25)
[2025-01-24] MEDS: DEX/HYPRO/GLY ARTIFICAL TEARS 225 DROP/15 ML BTL BOTH EYES ×2 (09:40→21:24)
[2025-01-24] MEDS: CHOLECALCIFEROL (VITAMIN D3) 25 MCG TABLET GT (09:40)
[2025-01-24] MEDS: APIXABAN 5 MG TABLET GT ×2 (09:40→21:24)
[2025-01-24] MEDS: CLOPIDOGREL BISULFATE 75 MG TABLET GT (09:40)
[2025-01-24] MEDS: AMIODARONE 200 MG TABLET 400 MG GT (09:40)
[2025-01-24] MEDS: ATORVASTATIN 40 MG TABLET GT (21:24)
[2025-01-25] VITALS (9 sets, daily range): BP systolic 123–134; BP diastolic 64–84; PULSE 51–74; RESP 18–97; TEMP 36.3–36.6; O2SAT 97–99
[2025-01-25] MEDS: IPRATROPIUM/ALBUTEROL 3 ML AMPUL.NEB INH ×4 (00:50→19:22)
[2025-01-25] MEDS: LEVOTHYROXINE 200 MCG TABLET GT (05:47)
[2025-01-25] MEDS: INSULIN REGULAR, HUMAN 100 UNIT/ML VIAL SC (05:47)
[2025-01-25] MEDS: AMIODARONE 200 MG TABLET 400 MG GT (08:36)
[2025-01-25] MEDS: CHOLECALCIFEROL (VITAMIN D3) 25 MCG TABLET GT (08:37)
[2025-01-25] MEDS: CLOPIDOGREL BISULFATE 75 MG TABLET GT (08:37)
[2025-01-25] MEDS: APIXABAN 5 MG TABLET GT ×2 (08:37→21:22)
[2025-01-25] MEDS: DEX/HYPRO/GLY ARTIFICAL TEARS 225 DROP/15 ML BTL BOTH EYES ×2 (08:37→21:22)
[2025-01-25] MEDS: SENNOSIDES 8.6 MG TABLET GT ×2 (08:38→21:15)
--- NOTE | 2025-01-25 10:14 | PD.SAPROG ---
Progress Note - SubAcute DIAGNOSIS (1) Acute arterial ischemic stroke, vertebrobasilar, brainstem: Status: Chronic Qualifiers: Laterality: left Qualified Code(s): I63.212 - Cerebral infarction due to unspecified occlusion or stenosis of left vertebral artery; I63.22 - Cerebral infarction due to unspecified occlusion or stenosis of basilar artery (2) Seizures, generalized convulsive: Status: Chronic (3) Chronic respiratory failure: Status: Chronic Qualifiers: Respiratory failure complication: unspecified whether with hypoxia or hypercapnia Qualified Code(s): J96.10 - Chronic respiratory failure, unspecified whether with hypoxia or hypercapnia (4) Altered glucose metabolism due to diabetes: Status: Chronic (5) Encephalopathy: Status: Chronic (6) Decubital ulcer: Status: Chronic (7) G tube feedings: Status: Chronic (8) Tracheostomy in place: Status: Chronic SUBJECTIVE Fever:: none Shortness of Breath:: none Pain:: none OBJECTIVE Most recent vital signs: Last Vital Signs Temp 97.6 F 01/25/25 06:00 Pulse 68 01/25/25 08:36 Resp 18 01/25/25 06:41 BP 134/84 H 01/25/25 08:36 Pulse Ox 98 01/25/25 06:41 O2 Del Method Blow-by 01/24/25 18:00 O2 Flow Rate 6 01/25/25 06:41 FiO2 28 01/25/25 06:41 Speech:: mouths words (sometimes) Answers questions:: sometimes (mostly by gestures) Respiratory:: lungs clear Cardiovascular: RRR Abdomen: soft Tracheostomy:: to blow by Feeding per:: G tube ASSESSMENT & PLAN Assessment: Pt seems to be fairly stable with all above diagnosis and with limited /guarded prognosis for recovery to independent living and needs all support. Family supportive Denies any pain. VSS 11-11-24 Met with family in pt's room and updated them as well as answered all questions. Reiterated limited prognosis for independent living. Neurology input on prognostic outlook and medication review followed. Repeat CT head ordered by neurologist was done and results discussed with the Neurologist who confirmed stable changes and recommended no change on medicine. This was updated with the family the No new issues , Talked with family at bedside and updated them. VSS. Started on Melatonin q hs 3 mgs prn to facilitate sleep. Pt had fever due to E. faecalis UTI and started on Vancomycin 1gm IVPB q 12 hourly on 12-28-24 Responding well. Plan: Full support medical/nutritional and emotional towards maintaining some quality of life
[2025-01-25] MEDS: ATORVASTATIN 40 MG TABLET GT (21:22)
[2025-01-25] MEDS: MAGNESIUM HYDROXIDE 30 ML ORAL SUSP ML GT (22:40)
[2025-01-26] VITALS (9 sets, daily range): BP systolic 120–140; BP diastolic 62–78; PULSE 62–78; RESP 18–97; TEMP 36.5–37.1; O2SAT 98–99
[2025-01-26] MEDS: IPRATROPIUM/ALBUTEROL 3 ML AMPUL.NEB INH ×4 (01:39→19:29)
[2025-01-26] MEDS: LEVOTHYROXINE 200 MCG TABLET GT (05:14)
[2025-01-26] MEDS: INSULIN REGULAR, HUMAN 100 UNIT/ML VIAL SC (05:31)
[2025-01-26 08:19] LABS: Levetiracetam (Keppra)* 14.3 mcg/mL (6.0-46.0)
[2025-01-26] MEDS: AMIODARONE 200 MG TABLET 400 MG GT (08:32)
[2025-01-26] MEDS: APIXABAN 5 MG TABLET GT ×2 (08:33→20:52)
[2025-01-26] MEDS: CHOLECALCIFEROL (VITAMIN D3) 25 MCG TABLET GT (08:34)
[2025-01-26] MEDS: DEX/HYPRO/GLY ARTIFICAL TEARS 225 DROP/15 ML BTL BOTH EYES ×2 (08:34→20:52)
[2025-01-26] MEDS: CLOPIDOGREL BISULFATE 75 MG TABLET GT (08:34)
[2025-01-26] MEDS: SENNOSIDES 8.6 MG TABLET GT ×2 (08:34→20:52)
--- NOTE | 2025-01-26 15:26 | PC.SS ---
This SSD spoke with resident regarding resident appointment in June for IVC filter follow up. Resident Jen is concerned the appointment is in June and not sooner. Jen said she would call the office to inquire of an earlier appointment. If Jen changes the appointment she has agreed to inform this SSD.
[2025-01-26] MEDS: ATORVASTATIN 40 MG TABLET GT (20:52)
[2025-01-27] VITALS (10 sets, daily range): BP systolic 109–141; BP diastolic 59–74; PULSE 66–88; RESP 17–20; TEMP 36.6–36.8; O2SAT 97–100
[2025-01-27] MEDS: IPRATROPIUM/ALBUTEROL 3 ML AMPUL.NEB INH ×4 (00:57→19:18)
[2025-01-27] MEDS: LEVOTHYROXINE 200 MCG TABLET GT (05:11)
[2025-01-27] MEDS: SENNOSIDES 8.6 MG TABLET GT ×2 (08:19→20:42)
[2025-01-27] MEDS: AMIODARONE 200 MG TABLET 400 MG GT (08:20)
[2025-01-27] MEDS: CHOLECALCIFEROL (VITAMIN D3) 25 MCG TABLET GT (08:20)
[2025-01-27] MEDS: APIXABAN 5 MG TABLET GT ×2 (08:20→20:41)
[2025-01-27] MEDS: CLOPIDOGREL BISULFATE 75 MG TABLET GT (08:21)
[2025-01-27] MEDS: DEX/HYPRO/GLY ARTIFICAL TEARS 225 DROP/15 ML BTL BOTH EYES ×2 (08:21→20:41)
[2025-01-27] MEDS: ATORVASTATIN 40 MG TABLET GT (20:41)
[2025-01-28] VITALS (9 sets, daily range): BP systolic 106–142; BP diastolic 63–78; PULSE 60–84; RESP 16–20; TEMP 36.6–36.7; O2SAT 95–100
[2025-01-28] MEDS: IPRATROPIUM/ALBUTEROL 3 ML AMPUL.NEB INH ×4 (01:06→19:40)
[2025-01-28] MEDS: LEVOTHYROXINE 200 MCG TABLET GT (05:15)
[2025-01-28] MEDS: AMIODARONE 200 MG TABLET 400 MG GT (08:38)
[2025-01-28] MEDS: CHOLECALCIFEROL (VITAMIN D3) 25 MCG TABLET GT (08:40)
[2025-01-28] MEDS: APIXABAN 5 MG TABLET GT ×2 (08:40→20:35)
[2025-01-28] MEDS: SENNOSIDES 8.6 MG TABLET GT ×2 (08:41→20:35)
[2025-01-28] MEDS: DEX/HYPRO/GLY ARTIFICAL TEARS 225 DROP/15 ML BTL BOTH EYES ×2 (08:41→20:35)
[2025-01-28] MEDS: CLOPIDOGREL BISULFATE 75 MG TABLET GT (08:41)
[2025-01-28] MEDS: ATORVASTATIN 40 MG TABLET GT (20:35)
[2025-01-29] VITALS (9 sets, daily range): BP systolic 121–127; BP diastolic 67–77; PULSE 60–73; RESP 18–21; TEMP 36.6–37; O2SAT 96–99
[2025-01-29] MEDS: IPRATROPIUM/ALBUTEROL 3 ML AMPUL.NEB INH ×4 (00:44→19:03)
[2025-01-29] MEDS: LEVOTHYROXINE 200 MCG TABLET GT (05:19)
[2025-01-29] MEDS: INSULIN REGULAR, HUMAN 100 UNIT/ML VIAL SC (05:41)
[2025-01-29] MEDS: AMIODARONE 200 MG TABLET 400 MG GT (08:42)
[2025-01-29] MEDS: SENNOSIDES 8.6 MG TABLET GT ×2 (08:43→20:55)
[2025-01-29] MEDS: CHOLECALCIFEROL (VITAMIN D3) 25 MCG TABLET GT (08:43)
[2025-01-29] MEDS: CLOPIDOGREL BISULFATE 75 MG TABLET GT (08:43)
[2025-01-29] MEDS: DEX/HYPRO/GLY ARTIFICAL TEARS 225 DROP/15 ML BTL BOTH EYES ×2 (08:43→20:54)
[2025-01-29] MEDS: APIXABAN 5 MG TABLET GT ×2 (08:43→20:54)
[2025-01-29] MEDS: MAGNESIUM HYDROXIDE 30 ML ORAL SUSP ML GT (08:44)
[2025-01-29] MEDS: ATORVASTATIN 40 MG TABLET GT (20:54)
[2025-01-29] MEDS: MELATONIN 3 MG TABLET GT (20:56)
--- NOTE | 2025-01-29 22:41 | PD.SAPROG ---
Progress Note - SubAcute DIAGNOSIS (1) Acute arterial ischemic stroke, vertebrobasilar, brainstem: Status: Chronic Qualifiers: Laterality: left Qualified Code(s): I63.212 - Cerebral infarction due to unspecified occlusion or stenosis of left vertebral artery; I63.22 - Cerebral infarction due to unspecified occlusion or stenosis of basilar artery (2) Seizures, generalized convulsive: Status: Chronic (3) Chronic respiratory failure: Status: Chronic Qualifiers: Respiratory failure complication: unspecified whether with hypoxia or hypercapnia Qualified Code(s): J96.10 - Chronic respiratory failure, unspecified whether with hypoxia or hypercapnia (4) Altered glucose metabolism due to diabetes: Status: Chronic (5) Encephalopathy: Status: Chronic (6) Decubital ulcer: Status: Chronic (7) G tube feedings: Status: Chronic (8) Tracheostomy in place: Status: Chronic SUBJECTIVE Fever:: none Shortness of Breath:: none Pain:: none OBJECTIVE Most recent vital signs: Last Vital Signs Temp 98 F 01/29/25 17:21 Pulse 72 01/29/25 19:03 Resp 18 01/29/25 19:03 BP 123/70 01/29/25 17:21 Pulse Ox 99 01/29/25 19:03 O2 Del Method Blow-by 01/29/25 17:21 O2 Flow Rate 6 01/29/25 19:03 FiO2 28 01/29/25 19:03 Speech:: mouths words (sometimes) Answers questions:: sometimes (mostly by gestures) Respiratory:: lungs clear Cardiovascular: RRR Abdomen: soft Tracheostomy:: to blow by Feeding per:: G tube ASSESSMENT & PLAN Assessment: Pt seems to be fairly stable with all above diagnosis and with limited /guarded prognosis for recovery to independent living and needs all support. Family supportive Denies any pain. VSS 11-11-24 Met with family in pt's room and updated them as well as answered all questions. Reiterated limited prognosis for independent living. Neurology input on prognostic outlook and medication review followed. Repeat CT head ordered by neurologist was done and results discussed with the Neurologist who confirmed stable changes and recommended no change on medicine. This was updated with the family the No new issues , Talked with family at bedside and updated them. VSS. Started on Melatonin q hs 3 mgs prn to facilitate sleep. Pt had fever due to E. faecalis UTI and started on Vancomycin 1gm IVPB q 12 hourly on 12-28-24 Responded well and cleared. Family very actitvely participating in patient care Plan: Full support medical/nutritional and emotional towards maintaining some quality of life
[2025-01-29] MEDS: BISACODYL 10 MG SUPP.RECT PR (22:50)
[2025-01-30] VITALS (10 sets, daily range): BP systolic 115–130; BP diastolic 62–73; PULSE 62–83; RESP 18–20; TEMP 36.7–36.9; O2SAT 96–100
[2025-01-30] MEDS: IPRATROPIUM/ALBUTEROL 3 ML AMPUL.NEB INH ×4 (00:12→16:35)
[2025-01-30] MEDS: LEVOTHYROXINE 200 MCG TABLET GT (05:18)
[2025-01-30] MEDS: INSULIN REGULAR, HUMAN 100 UNIT/ML VIAL SC (06:04)
[2025-01-30] MEDS: AMIODARONE 200 MG TABLET 400 MG GT (08:35)
[2025-01-30] MEDS: CHOLECALCIFEROL (VITAMIN D3) 25 MCG TABLET GT (08:37)
[2025-01-30] MEDS: DEX/HYPRO/GLY ARTIFICAL TEARS 225 DROP/15 ML BTL BOTH EYES ×2 (08:37→20:46)
[2025-01-30] MEDS: APIXABAN 5 MG TABLET GT ×2 (08:37→20:45)
[2025-01-30] MEDS: CLOPIDOGREL BISULFATE 75 MG TABLET GT (08:37)
[2025-01-30] MEDS: SENNOSIDES 8.6 MG TABLET GT ×2 (08:37→20:46)
--- NOTE | 2025-01-30 14:32 | PC.SS ---
Resident continues to have behaviors of anxiety causing him to be combative towards staff during care. Resident continues to wear bilateral mittens as he continues to pull on life sustaining tubes.
--- NOTE | 2025-01-30 14:33 | PC.SS ---
Resident is laying in bed with head of the bed elevated with call light properly placed with no signs of distress. Resident has trach in place and GT for medication and nutrition. Resident is non verbal unable to make decisions for self. Resident will remain in current care and will continue to have all subacute care needs met by staff. This SSD will make daily contact with resident and will monitor for changes in mood and behavior.
[2025-01-30] MEDS: ATORVASTATIN 40 MG TABLET GT (20:46)
[2025-01-30] MEDS: MELATONIN 3 MG TABLET GT (20:47)
[2025-01-31] VITALS (10 sets, daily range): BP systolic 101–155; BP diastolic 60–85; PULSE 61–83; RESP 18–22; TEMP 36.4–37; O2SAT 95–99
[2025-01-31] MEDS: IPRATROPIUM/ALBUTEROL 3 ML AMPUL.NEB INH ×4 (01:11→20:15)
[2025-01-31] MEDS: LEVOTHYROXINE 200 MCG TABLET GT (05:24)
[2025-01-31] MEDS: INSULIN REGULAR, HUMAN 100 UNIT/ML VIAL SC (06:11)
[2025-01-31] MEDS: AMIODARONE 200 MG TABLET 400 MG GT (08:33)
[2025-01-31] MEDS: CLOPIDOGREL BISULFATE 75 MG TABLET GT (08:33)
[2025-01-31] MEDS: CHOLECALCIFEROL (VITAMIN D3) 25 MCG TABLET GT (08:33)
[2025-01-31] MEDS: APIXABAN 5 MG TABLET GT ×2 (08:33→20:39)
[2025-01-31] MEDS: DEX/HYPRO/GLY ARTIFICAL TEARS 225 DROP/15 ML BTL BOTH EYES ×2 (08:33→20:39)
[2025-01-31] MEDS: SENNOSIDES 8.6 MG TABLET GT ×2 (08:34→20:39)
[2025-01-31] MEDS: ACETAMINOPHEN 325 MG TABLET 650 MG GT (17:27)
[2025-01-31] MEDS: ATORVASTATIN 40 MG TABLET GT (20:39)
[2025-02-01] VITALS (10 sets, daily range): BP systolic 111–147; BP diastolic 61–79; PULSE 57–80; RESP 16–20; TEMP 36.6–36.9; O2SAT 96–99
[2025-02-01] MEDS: IPRATROPIUM/ALBUTEROL 3 ML AMPUL.NEB INH ×4 (00:43→19:13)
--- NOTE | 2025-02-01 03:17 | PC.NURSE ---
approximately @2130, family notified nurse on shift to check patient's trach. charge nurse and nurse checked trach and was out. patient's stated his hand was on his trach during visitor switching . RT put trach back, patient VS taken and within normal. BP-125/75, P-76, R-20, Temp-97.5, O2-99%. patient's mittens was put on. patient is asleep at this moment. will continue to monitor.
[2025-02-01] MEDS: LEVOTHYROXINE 200 MCG TABLET GT (05:20)
[2025-02-01] MEDS: INSULIN REGULAR, HUMAN 100 UNIT/ML VIAL SC (06:02)
[2025-02-01] MEDS: AMIODARONE 200 MG TABLET 400 MG GT (08:50)
[2025-02-01] MEDS: CLOPIDOGREL BISULFATE 75 MG TABLET GT (08:51)
[2025-02-01] MEDS: CHOLECALCIFEROL (VITAMIN D3) 25 MCG TABLET GT (08:51)
[2025-02-01] MEDS: APIXABAN 5 MG TABLET GT ×2 (08:51→20:28)
[2025-02-01] MEDS: SENNOSIDES 8.6 MG TABLET GT ×2 (08:51→20:30)
[2025-02-01] MEDS: DEX/HYPRO/GLY ARTIFICAL TEARS 225 DROP/15 ML BTL BOTH EYES ×2 (08:51→20:30)
[2025-02-01] MEDS: ATORVASTATIN 40 MG TABLET GT (20:30)
[2025-02-01] MEDS: MAGNESIUM HYDROXIDE 30 ML ORAL SUSP ML GT (21:54)
[2025-02-02] VITALS (10 sets, daily range): BP systolic 112–139; BP diastolic 61–81; PULSE 52–76; RESP 17–22; TEMP 36.7–37; O2SAT 96–99
[2025-02-02] MEDS: IPRATROPIUM/ALBUTEROL 3 ML AMPUL.NEB INH ×4 (01:10→18:51)
[2025-02-02] MEDS: LEVOTHYROXINE 200 MCG TABLET GT (05:13)
[2025-02-02] MEDS: AMIODARONE 200 MG TABLET 400 MG GT (08:36)
[2025-02-02] MEDS: APIXABAN 5 MG TABLET GT ×2 (08:37→20:35)
[2025-02-02] MEDS: CHOLECALCIFEROL (VITAMIN D3) 25 MCG TABLET GT (08:37)
[2025-02-02] MEDS: DEX/HYPRO/GLY ARTIFICAL TEARS 225 DROP/15 ML BTL BOTH EYES ×2 (08:38→20:35)
[2025-02-02] MEDS: SENNOSIDES 8.6 MG TABLET GT ×2 (08:38→20:35)
[2025-02-02] MEDS: CLOPIDOGREL BISULFATE 75 MG TABLET GT (08:38)
[2025-02-02] MEDS: BISACODYL 10 MG SUPP.RECT PR (10:00)
[2025-02-02] MEDS: ACETAMINOPHEN 325 MG TABLET 650 MG GT ×2 (13:20→23:30)
[2025-02-02] MEDS: ATORVASTATIN 40 MG TABLET GT (20:35)
--- NOTE | 2025-02-02 21:38 | PD.SAPROG ---
Progress Note - SubAcute DIAGNOSIS (1) Acute arterial ischemic stroke, vertebrobasilar, brainstem: Status: Chronic Qualifiers: Laterality: left Qualified Code(s): I63.212 - Cerebral infarction due to unspecified occlusion or stenosis of left vertebral artery; I63.22 - Cerebral infarction due to unspecified occlusion or stenosis of basilar artery (2) Seizures, generalized convulsive: Status: Chronic (3) Chronic respiratory failure: Status: Chronic Qualifiers: Respiratory failure complication: unspecified whether with hypoxia or hypercapnia Qualified Code(s): J96.10 - Chronic respiratory failure, unspecified whether with hypoxia or hypercapnia (4) Altered glucose metabolism due to diabetes: Status: Chronic (5) Encephalopathy: Status: Chronic (6) Decubital ulcer: Status: Chronic (7) G tube feedings: Status: Chronic (8) Tracheostomy in place: Status: Chronic SUBJECTIVE Fever:: none Shortness of Breath:: none Pain:: none OBJECTIVE Most recent vital signs: Last Vital Signs Temp 98.6 F 02/02/25 17:02 Pulse 74 02/02/25 18:55 Resp 18 02/02/25 18:55 BP 139/81 H 02/02/25 17:02 Pulse Ox 96 02/02/25 18:55 O2 Del Method Blow-by 02/02/25 17:02 O2 Flow Rate 8 02/02/25 18:55 FiO2 30 02/02/25 18:55 Speech:: mouths words (sometimes) Answers questions:: sometimes (mostly by gestures) Respiratory:: lungs clear Cardiovascular: RRR Abdomen: soft Tracheostomy:: to blow by Feeding per:: G tube ASSESSMENT & PLAN Assessment: Pt seems to be fairly stable with all above diagnosis and with limited /guarded prognosis for recovery to independent living and needs all support. Family supportive Denies any pain. VSS 11-11-24 Met with family in pt's room and updated them as well as answered all questions. Reiterated limited prognosis for independent living. Neurology input on prognostic outlook and medication review followed. Repeat CT head ordered by neurologist was done and results discussed with the Neurologist who confirmed stable changes and recommended no change on medicine. This was updated with the family the No new issues , Talked with family at bedside and updated them. VSS. Started on Melatonin q hs 3 mgs prn to facilitate sleep. Pt had fever due to E. faecalis UTI and started on Vancomycin 1gm IVPB q 12 hourly on 12-28-24 Responded well and cleared. Family very actitvely participating in patient care Some constipation concerns, was given Lactulose . Being monitored Plan: Full support medical/nutritional and emotional towards maintaining some quality of life
[2025-02-03] VITALS (9 sets, daily range): BP systolic 120–139; BP diastolic 64–76; PULSE 68–84; RESP 17–20; TEMP 36.2–37; O2SAT 95–98
[2025-02-03] MEDS: IPRATROPIUM/ALBUTEROL 3 ML AMPUL.NEB INH ×4 (00:58→18:44)
[2025-02-03] MEDS: INSULIN REGULAR, HUMAN 100 UNIT/ML VIAL SC ×2 (05:40→17:30)
[2025-02-03] MEDS: LEVOTHYROXINE 200 MCG TABLET GT (05:41)
[2025-02-03] MEDS: CHOLECALCIFEROL (VITAMIN D3) 25 MCG TABLET GT (08:26)
[2025-02-03] MEDS: APIXABAN 5 MG TABLET GT ×2 (08:26→20:42)
[2025-02-03] MEDS: AMIODARONE 200 MG TABLET 400 MG GT (08:26)
[2025-02-03] MEDS: DEX/HYPRO/GLY ARTIFICAL TEARS 225 DROP/15 ML BTL BOTH EYES ×2 (08:27→20:42)
[2025-02-03] MEDS: CLOPIDOGREL BISULFATE 75 MG TABLET GT (08:27)
[2025-02-03] MEDS: SENNOSIDES 8.6 MG TABLET GT ×2 (08:28→20:42)
[2025-02-03] MEDS: LACTULOSE 10 GM/15 ML SOLUTION 20 GM GT (08:28)
[2025-02-03] MEDS: ATORVASTATIN 40 MG TABLET GT (20:42)
[2025-02-04] VITALS (8 sets, daily range): BP systolic 118–139; BP diastolic 65–80; PULSE 61–84; RESP 18–28; TEMP 36.2–37; O2SAT 95–100
[2025-02-04] MEDS: IPRATROPIUM/ALBUTEROL 3 ML AMPUL.NEB INH ×3 (01:40→12:14)
[2025-02-04] MEDS: LEVOTHYROXINE 200 MCG TABLET GT (05:19)
[2025-02-04] MEDS: INSULIN REGULAR, HUMAN 100 UNIT/ML VIAL SC (05:19)
[2025-02-04] MEDS: AMIODARONE 200 MG TABLET 400 MG GT (09:38)
[2025-02-04] MEDS: CHOLECALCIFEROL (VITAMIN D3) 25 MCG TABLET GT (09:46)
[2025-02-04] MEDS: APIXABAN 5 MG TABLET GT ×2 (09:46→23:02)
[2025-02-04] MEDS: CLOPIDOGREL BISULFATE 75 MG TABLET GT (09:47)
[2025-02-04] MEDS: DEX/HYPRO/GLY ARTIFICAL TEARS 225 DROP/15 ML BTL BOTH EYES ×2 (09:48→23:03)
[2025-02-04] MEDS: LACTULOSE 10 GM/15 ML SOLUTION 20 GM GT ×2 (09:50→23:03)
[2025-02-04] MEDS: SENNOSIDES 8.6 MG TABLET GT ×2 (09:50→23:00)
--- NOTE | 2025-02-04 11:16 | XR_ITS ---
Examination: Abdomen AP single view Technique: AP portable supine abdomen, single view Exam date and time: February 04, 2025 1237 hours INDICATIONS: Abdominal pain constipation beginning 2 days ago. FINDINGS: Large amounts of stool throughout the entire colon Gastrostomy tube overlies the stomach No free air IMPRESSION: Very large amounts of stool throughout the entire colon
--- NOTE | 2025-02-04 11:19 | PC.NURSE ---
Resident c/o of abdominal pain , noted to be slightly firm. Report received that resident has been only having small bowel movement . On lactulose [address] East was notified with new orders to increase the lactulose to BID , do the bowel protocol and do abdominal x-ray.
[2025-02-04] MEDS: MAGNESIUM HYDROXIDE 30 ML ORAL SUSP ML GT (11:57)
--- NOTE | 2025-02-04 15:12 | PC.NURSE ---
Resident's abdomen noted to be distended. C/O severe abdominal pain. No bowel movement at this time noted after Lactulose and MOM were given. Abdominal x-ray result with very large amounts of stool throughout the entire colon. Called Dr East and made aware with order received to transfer resident to ER. Son and at bedside and made aware. Called ER and gave report, awaiting for ER to call us back when to transfer the resident. V/S taken as follows: 123/74, 84, 28, 98.0
--- NOTE | 2025-02-04 16:10 | PC.NURSE ---
Resident was sent out to ER Via gurney with [employer] WORKER and SURGICAL NURSE at 15:45. Alert and responsive.
--- NOTE | 2025-02-04 17:10 | PC.NURSE ---
pt was transfer to ED at [id number]
--- NOTE | 2025-02-04 22:50 | PC.NURSE ---
Received resident from ER via gurney. Resident sleepy, but arouseable. Resident situated in the room, connected to blowby by RT, accompanied by . No distress noted. Abd soft at this time but guarded. BS active. Resident made comfortable, call light provided, resident reaching for trach area, bilateral mitten placed. Glucose 108, no gt residual, and resident has an open areas to sacrum. Resume care.
--- NOTE | 2025-02-04 22:51 | PC.RT ---
AT 2230 PT TAKEN BACK TO [facility] FROM ER, WITHOUT INCIDENT. BHAVANA VICKERS AT BEDSIDE.
[2025-02-04] MEDS: ATORVASTATIN 40 MG TABLET GT (23:03)
--- NOTE | 2025-02-04 23:09 | ESPR_ITS ---
Progress Note - SubAcute DIAGNOSIS (1) Acute arterial ischemic stroke, vertebrobasilar, brainstem: Status: Chronic Qualifiers: Laterality: left Qualified Code(s): I63.212 - Cerebral infarction due to unspecified occlusion or stenosis of left vertebral artery; I63.22 - Cerebral infarction due to unspecified occlusion or stenosis of basilar artery (2) Seizures, generalized convulsive: Status: Chronic (3) Chronic respiratory failure: Status: Chronic Qualifiers: Respiratory failure complication: unspecified whether with hypoxia or hypercapnia Qualified Code(s): J96.10 - Chronic respiratory failure, unspecified whether with hypoxia or hypercapnia (4) Altered glucose metabolism due to diabetes: Status: Chronic (5) Encephalopathy: Status: Chronic (6) Decubital ulcer: Status: Chronic (7) G tube feedings: Status: Chronic (8) Tracheostomy in place: Status: Chronic SUBJECTIVE Fever:: none Shortness of Breath:: none Pain:: none OBJECTIVE Most recent vital signs: Last Vital Signs Temp 98.0 F 02/04/25 15:00 Pulse 84 02/04/25 15:00 Resp 28 H 02/04/25 15:00 BP 123/74 02/04/25 15:00 Pulse Ox 100 02/04/25 12:15 O2 Del Method Blow-by 02/04/25 06:00 O2 Flow Rate 8 02/04/25 12:15 FiO2 30 02/04/25 12:15 Speech:: mouths words (sometimes) Answers questions:: sometimes (mostly by gestures) Respiratory:: lungs clear Cardiovascular: RRR Abdomen: soft Tracheostomy:: to blow by Feeding per:: G tube ASSESSMENT & PLAN Assessment: Pt seems to be fairly stable with all above diagnosis and with limited /guarded prognosis for recovery to independent living and needs all support. Family supportive Denies any pain. VSS 11-11-24 Met with family in pt's room and updated them as well as answered all questions. Reiterated limited prognosis for independent living. Neurology input on prognostic outlook and medication review followed. Repeat CT head ordered by neurologist was done and results discussed with the Neurologist who confirmed stable changes and recommended no change on medicine. This was updated with the family the No new issues , Talked with family at bedside and updated them. VSS. Started on Melatonin q hs 3 mgs prn to facilitate sleep. Pt had fever due to E. faecalis UTI and started on Vancomycin 1gm IVPB q 12 hourly on 12-28-24 Responded well and cleared. Family very actitvely participating in patient care Some constipation concerns, was given Lactulose . Being monitored but pt did not respond to treatment and was sent to the ER were he finally did poop and stabilized and returned to the [facility] at night doing well on the above treatment protocol. Plan: Full support medical/nutritional and emotional towards maintaining some quality of life
[2025-02-05] VITALS (9 sets, daily range): BP systolic 120–138; BP diastolic 62–71; PULSE 65–81; RESP 18–23; TEMP 36.5–37; O2SAT 96–100
[2025-02-05] MEDS: IPRATROPIUM/ALBUTEROL 3 ML AMPUL.NEB INH ×4 (00:55→20:32)
--- NOTE | 2025-02-05 02:42 | PC.NURSE ---
Resident came back from ER accompanied by . Received report from William BATEMAN in ER, resident received 1L NS bolus and Ceftazidime IV for possible UTI. Notified Dr East of resident's return and recommend Amoxicillin for possible UTI, reviewed all labs, no antibiotic ordered at this time, follow up CBC ordered for sundayFebruary 06 and urine culture pending. William stated resident has had small, firm BMs, new order for Lactulose daily x 3 days, then re-eval with .
[2025-02-05] MEDS: INSULIN REGULAR, HUMAN 100 UNIT/ML VIAL SC ×2 (05:54→17:15)
[2025-02-05] MEDS: LEVOTHYROXINE 200 MCG TABLET GT (06:12)
[2025-02-05] MEDS: BISACODYL 10 MG SUPP.RECT PR (07:45)
[2025-02-05 08:29] LABS: Thyroid Stimulating Hormone 1.26 uIU/mL (0.55-4.78)
[2025-02-05] MEDS: APIXABAN 5 MG TABLET GT ×2 (09:41→21:31)
[2025-02-05] MEDS: DEX/HYPRO/GLY ARTIFICAL TEARS 225 DROP/15 ML BTL BOTH EYES ×2 (09:42→21:33)
[2025-02-05] MEDS: SENNOSIDES 8.6 MG TABLET GT ×2 (09:42→21:33)
[2025-02-05] MEDS: LACTULOSE 10 GM/15 ML SOLUTION GT (09:42)
[2025-02-05] MEDS: CHOLECALCIFEROL (VITAMIN D3) 25 MCG TABLET GT (09:42)
[2025-02-05] MEDS: CLOPIDOGREL BISULFATE 75 MG TABLET GT (09:42)
[2025-02-05] MEDS: AMIODARONE 200 MG TABLET 400 MG GT (09:43)
--- NOTE | 2025-02-05 14:34 | PC.SS ---
Resident is laying in bed with head of the bed elevated with call light placed with no signs of distress. Resident is on blow by with trach in place and GT for medication and nutrition. Resident has absence of speech, he is able to make simple needs known, his decision maker is his Jen. Resident has no changes in care or condition and will remain in current care and will have all subacute care needs met by staff. This SSD will continue make daily contact and will monitor for changes in mood and behavior.
[2025-02-05] MEDS: ACETAMINOPHEN 325 MG TABLET 650 MG GT (16:48)
[2025-02-05] MEDS: ATORVASTATIN 40 MG TABLET GT (21:32)
[2025-02-06] VITALS (9 sets, daily range): BP systolic 119–137; BP diastolic 60–75; PULSE 54–93; RESP 18–22; TEMP 36.2–36.6; O2SAT 94–99
[2025-02-06] MEDS: IPRATROPIUM/ALBUTEROL 3 ML AMPUL.NEB INH ×4 (00:59→16:31)
[2025-02-06] MEDS: LEVOTHYROXINE 200 MCG TABLET GT (05:39)
[2025-02-06 08:18] LABS: Basophils # (Auto) 0.1 Thou/mm3 (0.0-0.2); Basophils % (Auto) 1 % (0-2.5); Eosinophils # (Auto) 0.1 Thou/mm3 (0.0-0.5); Eosinophils % (Auto) 1 % (0-10); Hematocrit 29.8 % (41.0-53.0); Hemoglobin 9.6 g/dL (13.5-16.0); Immature Granulocytes Auto 0.01 Thou/mm3 (0.00-0.00); Lymphocytes # (Auto) 1.0 Thou/mm3 (1.0-4.8); Lymphocytes % (Auto) 12 % (10-50); Mean Corpuscular HGB Conc 32.2 g/dl (31.0-37.0); Mean Corpuscular Hemoglobin 31.2 pg (25.0-35.0); Mean Corpuscular Volume 97 fL (80-100); Monocytes # (Auto) 0.7 Thou/mm3 (0.0-0.8); Monocytes % (Auto) 8 % (0-12); Neutrophils # (Auto) 6.6 Thou/mm3 (1.8-7.7); Neutrophils % (Auto) 78 % (37-80); Nucleated Red Blood Cell # 0.00 Thou/mm3 (0.00-0.00); Nucleated Red Blood Cell % 0 /100 WBC (0); Platelet Count 251 Thou/mm3 (140-440); RDW Standard Deviation 50.1 fL (35.1-43.9); Red Blood Count 3.08 Miln/mm3 (4.50-5.90); White Blood Count 8.5 Thou/mm3 (3.8-10.6)
[2025-02-06] MEDS: AMIODARONE 200 MG TABLET 400 MG GT (09:29)
[2025-02-06] MEDS: APIXABAN 5 MG TABLET GT ×2 (09:31→20:51)
[2025-02-06] MEDS: SENNOSIDES 8.6 MG TABLET GT ×2 (09:31→20:51)
[2025-02-06] MEDS: LACTULOSE 10 GM/15 ML SOLUTION GT (09:31)
[2025-02-06] MEDS: DEX/HYPRO/GLY ARTIFICAL TEARS 225 DROP/15 ML BTL BOTH EYES ×2 (09:31→20:51)
[2025-02-06] MEDS: CHOLECALCIFEROL (VITAMIN D3) 25 MCG TABLET GT (09:31)
[2025-02-06] MEDS: CLOPIDOGREL BISULFATE 75 MG TABLET GT (09:31)
[2025-02-06] MEDS: ACETAMINOPHEN 325 MG TABLET 650 MG GT (11:11)
[2025-02-06] MEDS: SODIUM PHOSPHATE,MONO-DIBASIC 133 ML ENEMA PR (13:58)
[2025-02-06] MEDS: ATORVASTATIN 40 MG TABLET GT (20:51)
[2025-02-07] VITALS (9 sets, daily range): BP systolic 117–134; BP diastolic 68–78; PULSE 60–85; RESP 18–20; TEMP 36.4–36.6; O2SAT 97–100
[2025-02-07] MEDS: IPRATROPIUM/ALBUTEROL 3 ML AMPUL.NEB INH ×4 (00:47→19:20)
[2025-02-07] MEDS: LEVOTHYROXINE 200 MCG TABLET GT (05:22)
[2025-02-07] MEDS: INSULIN REGULAR, HUMAN 100 UNIT/ML VIAL SC (05:42)
[2025-02-07] MEDS: AMIODARONE 200 MG TABLET 400 MG GT (08:19)
[2025-02-07] MEDS: CHOLECALCIFEROL (VITAMIN D3) 25 MCG TABLET GT (08:20)
[2025-02-07] MEDS: APIXABAN 5 MG TABLET GT ×2 (08:20→20:46)
[2025-02-07] MEDS: CLOPIDOGREL BISULFATE 75 MG TABLET GT (08:21)
[2025-02-07] MEDS: SENNOSIDES 8.6 MG TABLET GT ×2 (08:21→20:45)
[2025-02-07] MEDS: LACTULOSE 10 GM/15 ML SOLUTION GT (08:21)
[2025-02-07] MEDS: DEX/HYPRO/GLY ARTIFICAL TEARS 225 DROP/15 ML BTL BOTH EYES ×2 (08:21→20:46)
[2025-02-07] MEDS: ATORVASTATIN 40 MG TABLET GT (20:46)
[2025-02-08] VITALS (9 sets, daily range): BP systolic 112–146; BP diastolic 62–71; PULSE 55–78; RESP 18–22; TEMP 36.6–37; O2SAT 96–100
[2025-02-08] MEDS: IPRATROPIUM/ALBUTEROL 3 ML AMPUL.NEB INH ×4 (00:24→19:13)
[2025-02-08] MEDS: ACETAMINOPHEN 325 MG TABLET 650 MG GT ×2 (02:04→19:25)
[2025-02-08] MEDS: LEVOTHYROXINE 200 MCG TABLET GT (05:10)
[2025-02-08] MEDS: APIXABAN 5 MG TABLET GT ×2 (08:21→20:51)
[2025-02-08] MEDS: AMIODARONE 200 MG TABLET 400 MG GT (08:21)
[2025-02-08] MEDS: CLOPIDOGREL BISULFATE 75 MG TABLET GT (08:22)
[2025-02-08] MEDS: CHOLECALCIFEROL (VITAMIN D3) 25 MCG TABLET GT (08:22)
[2025-02-08] MEDS: SENNOSIDES 8.6 MG TABLET GT ×2 (08:22→20:51)
[2025-02-08] MEDS: DEX/HYPRO/GLY ARTIFICAL TEARS 225 DROP/15 ML BTL BOTH EYES ×2 (08:22→20:51)
[2025-02-08] MEDS: MAGNESIUM HYDROXIDE 30 ML ORAL SUSP ML GT (20:51)
[2025-02-08] MEDS: ATORVASTATIN 40 MG TABLET GT (20:51)
[2025-02-09] VITALS (9 sets, daily range): BP systolic 112–137; BP diastolic 70–74; PULSE 60–90; RESP 17–20; TEMP 36.2–36.9; O2SAT 93–100
[2025-02-09] MEDS: IPRATROPIUM/ALBUTEROL 3 ML AMPUL.NEB INH ×4 (00:44→19:04)
[2025-02-09] MEDS: LEVOTHYROXINE 200 MCG TABLET GT (05:13)
[2025-02-09] MEDS: INSULIN REGULAR, HUMAN 100 UNIT/ML VIAL SC (05:43)
[2025-02-09] MEDS: DEX/HYPRO/GLY ARTIFICAL TEARS 225 DROP/15 ML BTL BOTH EYES ×2 (08:04→21:58)
[2025-02-09] MEDS: AMIODARONE 200 MG TABLET 400 MG GT (08:04)
[2025-02-09] MEDS: CLOPIDOGREL BISULFATE 75 MG TABLET GT (08:04)
[2025-02-09] MEDS: CHOLECALCIFEROL (VITAMIN D3) 25 MCG TABLET GT (08:04)
[2025-02-09] MEDS: APIXABAN 5 MG TABLET GT ×2 (08:04→21:57)
[2025-02-09] MEDS: SENNOSIDES 8.6 MG TABLET GT ×2 (08:05→21:58)
[2025-02-09] MEDS: BISACODYL 10 MG SUPP.RECT PR (10:04)
--- NOTE | 2025-02-09 11:11 | PC.SS ---
During room visit resident appears to be anxious, and sweating from his head said he did not feel well. This SSD informed nurse of resident appearance, she said she was on her way in to follow up.
--- NOTE | 2025-02-09 12:55 | PC.NURSE ---
Resident was pushed back to his room after activities. Noted to restless and combative while in jose daniel- chair. He put his left leg down and trying to get out from his chair and obtained abrasion.
[2025-02-09] MEDS: ATORVASTATIN 40 MG TABLET GT (21:57)
[2025-02-09] MEDS: SODIUM PHOSPHATE,MONO-DIBASIC 133 ML ENEMA PR (23:05)
[2025-02-10] VITALS (10 sets, daily range): BP systolic 103–145; BP diastolic 49–73; PULSE 62–80; RESP 17–28; TEMP 36.2–36.7; O2SAT 96–100
[2025-02-10] MEDS: IPRATROPIUM/ALBUTEROL 3 ML AMPUL.NEB INH ×4 (00:05→19:30)
[2025-02-10] MEDS: ACETAMINOPHEN 325 MG TABLET 650 MG GT (01:14)
--- NOTE | 2025-02-10 01:24 | PC.NURSE ---
This nurse was sitting at nursing station and heard resident talking and coughing, this nurse entered resident room and noted trach was out, RT called to beside and new trach was placed, blood noted, bilateral mittens were in place at time of trach being out, resident in room resting with eyes closed, respirations even and unlabored, call light within reach, HOB elevated, no s/s of distress noted, made aware and RP made aware.
[2025-02-10] MEDS: LEVOTHYROXINE 200 MCG TABLET GT (04:59)
[2025-02-10] MEDS: AMIODARONE 200 MG TABLET 400 MG GT (09:06)
[2025-02-10] MEDS: APIXABAN 5 MG TABLET GT ×2 (09:06→20:37)
[2025-02-10] MEDS: DEX/HYPRO/GLY ARTIFICAL TEARS 225 DROP/15 ML BTL BOTH EYES ×2 (09:07→20:37)
[2025-02-10] MEDS: CHOLECALCIFEROL (VITAMIN D3) 25 MCG TABLET GT (09:07)
[2025-02-10] MEDS: CLOPIDOGREL BISULFATE 75 MG TABLET GT (09:07)
[2025-02-10] MEDS: SENNOSIDES 8.6 MG TABLET GT ×2 (09:07→20:37)
[2025-02-10] MEDS: ATORVASTATIN 40 MG TABLET GT (20:37)
[2025-02-11] VITALS (10 sets, daily range): BP systolic 103–128; BP diastolic 63–67; PULSE 56–85; RESP 17–20; TEMP 36.6–37; O2SAT 95–99
[2025-02-11] MEDS: IPRATROPIUM/ALBUTEROL 3 ML AMPUL.NEB INH ×4 (00:15→18:34)
[2025-02-11] MEDS: LEVOTHYROXINE 200 MCG TABLET GT (05:07)
[2025-02-11] MEDS: AMIODARONE 200 MG TABLET 400 MG GT (09:56)
[2025-02-11] MEDS: CLOPIDOGREL BISULFATE 75 MG TABLET GT (09:57)
[2025-02-11] MEDS: APIXABAN 5 MG TABLET GT ×2 (09:58→21:10)
[2025-02-11] MEDS: DEX/HYPRO/GLY ARTIFICAL TEARS 225 DROP/15 ML BTL BOTH EYES ×2 (10:00→21:10)
[2025-02-11] MEDS: CHOLECALCIFEROL (VITAMIN D3) 25 MCG TABLET GT (10:02)
[2025-02-11] MEDS: SENNOSIDES 8.6 MG TABLET GT ×2 (10:03→21:10)
--- NOTE | 2025-02-11 10:18 | PC.NURSE ---
Received a report from SS , family planning to take him home and wants him to wean off from BB. She also added that family plans to take him home with the GT but not on trach. And Dr East was made aware about. Spoke with RT on duty and made aware and she said ST has to check on him for the PMV. ST made aware of it.
--- NOTE | 2025-02-11 10:30 | PC.SS ---
This SSD spoke with DON in morning meeting about the possibility for blow by weaning. This SSD mentioned this plan to MD who stated resident would need to be seen by ST for further recommendation before proceeding. This SSD informed charge nurse who spoke with ST and RT about ST order. Family would like to take resident home if he is able to have trach removed. This SSD will follow up and updated DC plan as appropriate.
[2025-02-11] MEDS: ATORVASTATIN 40 MG TABLET GT (21:10)
[2025-02-12] VITALS (10 sets, daily range): BP systolic 110–130; BP diastolic 65–77; PULSE 54–72; RESP 16–20; TEMP 36.4–36.8; O2SAT 96–100; BMI 21.2
[2025-02-12] MEDS: IPRATROPIUM/ALBUTEROL 3 ML AMPUL.NEB INH ×3 (02:00→19:16)
[2025-02-12] MEDS: LEVOTHYROXINE 200 MCG TABLET GT (05:46)
[2025-02-12] MEDS: INSULIN REGULAR, HUMAN 100 UNIT/ML VIAL SC (05:46)
[2025-02-12] MEDS: APIXABAN 5 MG TABLET GT ×2 (09:53→20:57)
[2025-02-12] MEDS: AMIODARONE 200 MG TABLET 400 MG GT (09:54)
[2025-02-12] MEDS: CHOLECALCIFEROL (VITAMIN D3) 25 MCG TABLET GT (09:54)
[2025-02-12] MEDS: SENNOSIDES 8.6 MG TABLET GT ×2 (09:55→20:57)
[2025-02-12] MEDS: CLOPIDOGREL BISULFATE 75 MG TABLET GT (09:55)
[2025-02-12] MEDS: DEX/HYPRO/GLY ARTIFICAL TEARS 225 DROP/15 ML BTL BOTH EYES ×2 (09:55→20:57)
--- NOTE | 2025-02-12 11:49 | PC.SS ---
Room visit: Resident is laying in bed with head of the bed elevated with call light properly placed with no signs of distress. He has no changes in care or condition he remains on blow by with trach in place and GT for medication and nutrition. Resident is unable to make decisions for self, his is his decision maker. Resident will remain in current care and will have all subacute care needs met by staff. This SSD will make daily contact with resident and offer emotional support as needed.
[2025-02-12] MEDS: ACETAMINOPHEN 325 MG TABLET 650 MG GT (15:00)
--- NOTE | 2025-02-12 19:10 | PC.NURSE ---
Resident is awake and alert, restless and agitated, was given Ativan, within an hour the patient was no longer agitated. Vital signs are normal, in no apparent distress at this time.
[2025-02-12] MEDS: ATORVASTATIN 40 MG TABLET GT (20:57)
[2025-02-12] MEDS: MAGNESIUM HYDROXIDE 30 ML ORAL SUSP ML GT (21:05)
--- NOTE | 2025-02-12 22:01 | ESPR_ITS ---
Progress Note - SubAcute DIAGNOSIS (1) Acute arterial ischemic stroke, vertebrobasilar, brainstem: Status: Chronic Qualifiers: Laterality: left Qualified Code(s): I63.212 - Cerebral infarction due to unspecified occlusion or stenosis of left vertebral artery; I63.22 - Cerebral infarction due to unspecified occlusion or stenosis of basilar artery (2) Seizures, generalized convulsive: Status: Chronic (3) Chronic respiratory failure: Status: Chronic Qualifiers: Respiratory failure complication: unspecified whether with hypoxia or hypercapnia Qualified Code(s): J96.10 - Chronic respiratory failure, unspecified whether with hypoxia or hypercapnia (4) Altered glucose metabolism due to diabetes: Status: Chronic (5) Encephalopathy: Status: Chronic (6) Decubital ulcer: Status: Chronic (7) G tube feedings: Status: Chronic (8) Tracheostomy in place: Status: Chronic SUBJECTIVE Fever:: none Shortness of Breath:: none Pain:: none OBJECTIVE Most recent vital signs: Last Vital Signs Temp 98.2 F 02/12/25 17:56 Pulse 63 02/12/25 19:16 Resp 18 02/12/25 19:16 BP 130/74 02/12/25 17:56 Pulse Ox 99 02/12/25 19:16 O2 Del Method Blow-by 02/12/25 17:56 O2 Flow Rate 6 02/12/25 19:16 FiO2 28 02/12/25 19:16 Speech:: mouths words (sometimes) Answers questions:: sometimes (mostly by gestures) Respiratory:: lungs clear Cardiovascular: RRR Abdomen: soft Tracheostomy:: to blow by Feeding per:: G tube ASSESSMENT & PLAN Assessment: Pt seems to be fairly stable with all above diagnosis and with limited /guarded prognosis for recovery to independent living and needs all support. Family supportive Denies any pain. VSS 11-11-24 Met with family in pt's room and updated them as well as answered all questions. Reiterated limited prognosis for independent living. Neurology input on prognostic outlook and medication review followed. Repeat CT head ordered by neurologist was done and results discussed with the Neurologist who confirmed stable changes and recommended no change on medicine. This was updated with the family the No new issues , Talked with family at bedside and updated them. VSS. Started on Melatonin q hs 3 mgs prn to facilitate sleep. Pt had fever due to E. faecalis UTI and started on Vancomycin 1gm IVPB q 12 hourly on 12-28-24 Responded well and cleared. Family very actitvely participating in patient care Some constipation concerns, was given Lactulose . Being monitored but pt did not respond to treatment and was sent to the ER were he finally did poop and stabilized and returned to the [facility] at night doing well on the above treatment protocol. Now requiring Lactulose and occasional suppository for Constipation Plan: Full support medical/nutritional and emotional towards maintaining some quality of life
[2025-02-13] VITALS (10 sets, daily range): BP systolic 123–135; BP diastolic 68–77; PULSE 48–68; RESP 18–21; TEMP 36.4–36.9; O2SAT 97–100
[2025-02-13] MEDS: IPRATROPIUM/ALBUTEROL 3 ML AMPUL.NEB INH ×4 (00:06→18:20)
[2025-02-13] MEDS: LEVOTHYROXINE 200 MCG TABLET GT (05:30)
[2025-02-13] MEDS: AMIODARONE 200 MG TABLET 400 MG GT (08:23)
[2025-02-13] MEDS: APIXABAN 5 MG TABLET GT ×2 (08:24→20:37)
[2025-02-13] MEDS: CHOLECALCIFEROL (VITAMIN D3) 25 MCG TABLET GT (08:24)
[2025-02-13] MEDS: CLOPIDOGREL BISULFATE 75 MG TABLET GT (08:25)
[2025-02-13] MEDS: DEX/HYPRO/GLY ARTIFICAL TEARS 225 DROP/15 ML BTL BOTH EYES ×2 (08:26→20:37)
[2025-02-13] MEDS: SENNOSIDES 8.6 MG TABLET GT ×2 (08:26→20:37)
[2025-02-13] MEDS: ACETAMINOPHEN 325 MG TABLET 650 MG GT ×2 (09:00→21:02)
[2025-02-13] MEDS: ATORVASTATIN 40 MG TABLET GT (20:37)
[2025-02-13] MEDS: MELATONIN 3 MG TABLET GT (21:03)
[2025-02-14] VITALS (9 sets, daily range): BP systolic 104–159; BP diastolic 64–78; PULSE 46–84; RESP 16–18; TEMP 36.4–37; O2SAT 95–99
[2025-02-14] MEDS: IPRATROPIUM/ALBUTEROL 3 ML AMPUL.NEB INH ×4 (00:44→19:48)
[2025-02-14] MEDS: LEVOTHYROXINE 200 MCG TABLET GT (05:21)
[2025-02-14] MEDS: INSULIN REGULAR, HUMAN 100 UNIT/ML VIAL SC (05:47)
[2025-02-14] MEDS: AMIODARONE 200 MG TABLET 400 MG GT (08:37)
[2025-02-14] MEDS: DEX/HYPRO/GLY ARTIFICAL TEARS 225 DROP/15 ML BTL BOTH EYES ×2 (08:38→21:12)
[2025-02-14] MEDS: CHOLECALCIFEROL (VITAMIN D3) 25 MCG TABLET GT (08:38)
[2025-02-14] MEDS: APIXABAN 5 MG TABLET GT ×2 (08:38→21:12)
[2025-02-14] MEDS: CLOPIDOGREL BISULFATE 75 MG TABLET GT (08:38)
[2025-02-14] MEDS: SENNOSIDES 8.6 MG TABLET GT ×2 (08:38→21:11)
[2025-02-14] MEDS: ACETAMINOPHEN 325 MG TABLET 650 MG GT (11:39)
[2025-02-14] MEDS: ATORVASTATIN 40 MG TABLET GT (21:12)
[2025-02-15] VITALS (10 sets, daily range): BP systolic 115–128; BP diastolic 69–75; PULSE 57–88; RESP 18–20; TEMP 36.6–36.8; O2SAT 95–99
[2025-02-15] MEDS: IPRATROPIUM/ALBUTEROL 3 ML AMPUL.NEB INH ×4 (00:50→19:05)
[2025-02-15] MEDS: LEVOTHYROXINE 200 MCG TABLET GT (05:16)
[2025-02-15] MEDS: INSULIN REGULAR, HUMAN 100 UNIT/ML VIAL SC (05:39)
[2025-02-15] MEDS: ACETAMINOPHEN 325 MG TABLET 650 MG GT ×2 (08:00→20:25)
[2025-02-15] MEDS: AMIODARONE 200 MG TABLET 400 MG GT (08:11)
[2025-02-15] MEDS: DEX/HYPRO/GLY ARTIFICAL TEARS 225 DROP/15 ML BTL BOTH EYES ×2 (08:12→21:04)
[2025-02-15] MEDS: APIXABAN 5 MG TABLET GT ×2 (08:12→21:04)
[2025-02-15] MEDS: CLOPIDOGREL BISULFATE 75 MG TABLET GT (08:12)
[2025-02-15] MEDS: CHOLECALCIFEROL (VITAMIN D3) 25 MCG TABLET GT (08:12)
[2025-02-15] MEDS: SENNOSIDES 8.6 MG TABLET GT ×2 (08:13→21:04)
[2025-02-15] MEDS: ATORVASTATIN 40 MG TABLET GT (21:04)
[2025-02-16] VITALS (9 sets, daily range): BP systolic 101–122; BP diastolic 63–74; PULSE 55–70; RESP 18–20; TEMP 36.4–37; O2SAT 96–100
[2025-02-16] MEDS: IPRATROPIUM/ALBUTEROL 3 ML AMPUL.NEB INH ×4 (00:40→19:10)
[2025-02-16] MEDS: INSULIN REGULAR, HUMAN 100 UNIT/ML VIAL SC (05:27)
[2025-02-16] MEDS: LEVOTHYROXINE 200 MCG TABLET GT (05:28)
[2025-02-16] MEDS: AMIODARONE 200 MG TABLET 400 MG GT (08:33)
[2025-02-16] MEDS: APIXABAN 5 MG TABLET GT ×2 (08:33→21:59)
[2025-02-16] MEDS: CLOPIDOGREL BISULFATE 75 MG TABLET GT (08:33)
[2025-02-16] MEDS: CHOLECALCIFEROL (VITAMIN D3) 25 MCG TABLET GT (08:33)
[2025-02-16] MEDS: DEX/HYPRO/GLY ARTIFICAL TEARS 225 DROP/15 ML BTL BOTH EYES ×2 (08:34→22:00)
[2025-02-16] MEDS: SENNOSIDES 8.6 MG TABLET GT ×2 (08:34→22:00)
[2025-02-16] MEDS: ACETAMINOPHEN 325 MG TABLET 650 MG GT (09:20)
[2025-02-16 11:45] LABS: Albumin, Serum 3.6 gm/dL (3.4-4.8); Anion Gap 9 (7-16); BUN/Creatinine Ratio 16 Ratio (12-20); Blood Urea Nitrogen 14 mg/dL (9-23); Calcium 8.4 mg/dL (8.3-10.6); Calcium (Corrected) 8.7 mg/dL (8.5-10.1); Carbon Dioxide 29.2 mMol/L (20.0-31.0); Chloride 107 mMol/L (98-107); Creatinine (Component) 0.9 mg/dL (0.6-1.3); Estimated Creatinine Clearance 88.0 mL/min (>60); Glucose 142 mg/dL (74-106); Osmolality,Calculated 291 (275-295); Phosphorous 2.3 mg/dL (2.4-5.1); Potassium 3.3 mMol/L (3.4-5.1); Sodium 145 mMol/L (136-145); eGFR > 60 See Note
--- NOTE | 2025-02-16 17:39 | PC.NURSE ---
Resident was sent out to ER on 02/04/25 , lab was drawn and potassium level at that time was 3.2. Resident not on any water pill or potassium supplement. Follow up lab was drawn today. Potassium level noted to be 3.3. Called and notified Dr gibson, with order received to give potassium chloride 40 meq x1 and repeat the lab in 2 weeks. Resident's family at bedside and made aware.
--- NOTE | 2025-02-16 20:39 | ESPR_ITS ---
Progress Note - SubAcute DIAGNOSIS (1) Acute arterial ischemic stroke, vertebrobasilar, brainstem: Status: Chronic Qualifiers: Laterality: left Qualified Code(s): I63.212 - Cerebral infarction due to unspecified occlusion or stenosis of left vertebral artery; I63.22 - Cerebral infarction due to unspecified occlusion or stenosis of basilar artery (2) Seizures, generalized convulsive: Status: Chronic (3) Chronic respiratory failure: Status: Chronic Qualifiers: Respiratory failure complication: unspecified whether with hypoxia or hypercapnia Qualified Code(s): J96.10 - Chronic respiratory failure, unspecified whether with hypoxia or hypercapnia (4) Altered glucose metabolism due to diabetes: Status: Chronic (5) Encephalopathy: Status: Chronic (6) Decubital ulcer: Status: Chronic (7) G tube feedings: Status: Chronic (8) Tracheostomy in place: Status: Chronic SUBJECTIVE Fever:: none Shortness of Breath:: none Pain:: none OBJECTIVE Most recent vital signs: Last Vital Signs Temp 97.6 F 02/16/25 17:46 Pulse 60 02/16/25 19:10 Resp 18 02/16/25 19:10 BP 122/74 02/16/25 17:46 Pulse Ox 99 02/16/25 19:10 O2 Del Method Blow-by 02/16/25 17:46 O2 Flow Rate 6 02/16/25 19:10 FiO2 28 02/16/25 19:10 Speech:: mouths words (sometimes) Answers questions:: sometimes (mostly by gestures) Respiratory:: lungs clear Cardiovascular: RRR Abdomen: soft Tracheostomy:: to blow by Feeding per:: G tube ASSESSMENT & PLAN Assessment: Pt seems to be fairly stable with all above diagnosis and with limited /guarded prognosis for recovery to independent living and needs all support. Family supportive Denies any pain. VSS 11-11-24 Met with family in pt's room and updated them as well as answered all questions. Reiterated limited prognosis for independent living. Neurology input on prognostic outlook and medication review followed. Repeat CT head ordered by neurologist was done and results discussed with the Neurologist who confirmed stable changes and recommended no change on medicine. This was updated with the family the No new issues , Talked with family at bedside and updated them. VSS. Started on Melatonin q hs 3 mgs prn to facilitate sleep. Pt had fever due to E. faecalis UTI and started on Vancomycin 1gm IVPB q 12 hourly on 12-28-24 Responded well and cleared. Family very actitvely participating in patient care Some constipation concerns, was given Lactulose . Being monitored but pt did not respond to treatment and was sent to the ER were he finally did poop and stabilized and returned to the [facility] at night doing well on the above treatment protocol. Now requiring Lactulose and occasional suppository for Constipation Plan: Full support medical/nutritional and emotional towards maintaining some quality of life
[2025-02-16] MEDS: POTASSIUM CHLORIDE 20 MEQ TAB.ER.PRT GT (21:59)
[2025-02-16] MEDS: ATORVASTATIN 40 MG TABLET GT (22:00)
[2025-02-17] VITALS (10 sets, daily range): BP systolic 116–142; BP diastolic 55–76; PULSE 54–76; RESP 18–21; TEMP 36.4–36.8; O2SAT 95–100
[2025-02-17] MEDS: IPRATROPIUM/ALBUTEROL 3 ML AMPUL.NEB INH ×4 (00:36→18:27)
[2025-02-17] MEDS: LEVOTHYROXINE 200 MCG TABLET GT (05:38)
[2025-02-17] MEDS: AMIODARONE 200 MG TABLET 400 MG GT (08:11)
[2025-02-17] MEDS: CHOLECALCIFEROL (VITAMIN D3) 25 MCG TABLET GT (08:12)
[2025-02-17] MEDS: CLOPIDOGREL BISULFATE 75 MG TABLET GT (08:12)
[2025-02-17] MEDS: APIXABAN 5 MG TABLET GT ×2 (08:12→20:32)
[2025-02-17] MEDS: DEX/HYPRO/GLY ARTIFICAL TEARS 225 DROP/15 ML BTL BOTH EYES ×2 (08:13→20:32)
[2025-02-17] MEDS: SENNOSIDES 8.6 MG TABLET GT ×2 (08:13→20:32)
[2025-02-17] MEDS: ATORVASTATIN 40 MG TABLET GT (20:32)
[2025-02-18] VITALS (9 sets, daily range): BP systolic 114–150; BP diastolic 41–79; PULSE 65–93; RESP 16–22; TEMP 36.6–37; O2SAT 97–99
[2025-02-18] MEDS: IPRATROPIUM/ALBUTEROL 3 ML AMPUL.NEB INH ×4 (00:57→19:31)
[2025-02-18] MEDS: ACETAMINOPHEN 325 MG TABLET 650 MG GT ×2 (02:35→13:00)
[2025-02-18] MEDS: LEVOTHYROXINE 200 MCG TABLET GT (05:25)
[2025-02-18] MEDS: AMIODARONE 200 MG TABLET 400 MG GT (08:15)
[2025-02-18] MEDS: APIXABAN 5 MG TABLET GT ×2 (08:16→21:05)
[2025-02-18] MEDS: SENNOSIDES 8.6 MG TABLET GT ×2 (08:16→21:04)
[2025-02-18] MEDS: CLOPIDOGREL BISULFATE 75 MG TABLET GT (08:16)
[2025-02-18] MEDS: DEX/HYPRO/GLY ARTIFICAL TEARS 225 DROP/15 ML BTL BOTH EYES ×2 (08:16→21:04)
[2025-02-18] MEDS: CHOLECALCIFEROL (VITAMIN D3) 25 MCG TABLET GT (08:16)
--- NOTE | 2025-02-18 11:28 | PC.SS ---
Room visit: Resident is laying in bed with head of the bed elevated with call light properly placed with no signs of distress. Resident remains on blow by with trach in place and GT for medication and nutrition. His decision maker is his he is able to make simple needs known. He continues to be combative with staff during care, can be redirected at times. He will remain in current care and will continue to have all subacute care needs met for subacute care. This SSD will continue to make contact with resident and monitor for changes in mood and behavior.
[2025-02-18] MEDS: BISACODYL 10 MG SUPP.RECT PR (14:30)
[2025-02-18] MEDS: ATORVASTATIN 40 MG TABLET GT (21:04)
[2025-02-19] VITALS (9 sets, daily range): BP systolic 106–134; BP diastolic 61–74; PULSE 56–79; RESP 17–20; TEMP 36.4–36.7; O2SAT 94–99
[2025-02-19] MEDS: IPRATROPIUM/ALBUTEROL 3 ML AMPUL.NEB INH ×4 (00:57→19:14)
[2025-02-19] MEDS: LEVOTHYROXINE 200 MCG TABLET GT (05:33)
[2025-02-19] MEDS: APIXABAN 5 MG TABLET GT ×2 (08:54→20:57)
[2025-02-19] MEDS: AMIODARONE 200 MG TABLET 400 MG GT (08:54)
[2025-02-19] MEDS: CHOLECALCIFEROL (VITAMIN D3) 25 MCG TABLET GT (08:54)
[2025-02-19] MEDS: SENNOSIDES 8.6 MG TABLET GT ×2 (08:55→20:56)
[2025-02-19] MEDS: CLOPIDOGREL BISULFATE 75 MG TABLET GT (08:55)
[2025-02-19] MEDS: DEX/HYPRO/GLY ARTIFICAL TEARS 225 DROP/15 ML BTL BOTH EYES ×2 (08:55→20:57)
[2025-02-19] MEDS: ACETAMINOPHEN 325 MG TABLET 650 MG GT (17:50)
[2025-02-19] MEDS: ATORVASTATIN 40 MG TABLET GT (20:57)
[2025-02-20] VITALS (9 sets, daily range): BP systolic 106–131; BP diastolic 52–70; PULSE 60–76; RESP 18–20; TEMP 36.5–36.8; O2SAT 98–99
[2025-02-20] MEDS: IPRATROPIUM/ALBUTEROL 3 ML AMPUL.NEB INH ×4 (01:00→19:16)
[2025-02-20] MEDS: LEVOTHYROXINE 200 MCG TABLET GT (05:17)
[2025-02-20] MEDS: INSULIN REGULAR, HUMAN 100 UNIT/ML VIAL SC (05:44)
[2025-02-20] MEDS: AMIODARONE 200 MG TABLET 400 MG GT (08:35)
[2025-02-20] MEDS: DEX/HYPRO/GLY ARTIFICAL TEARS 225 DROP/15 ML BTL BOTH EYES ×2 (08:36→20:50)
[2025-02-20] MEDS: APIXABAN 5 MG TABLET GT ×2 (08:36→20:50)
[2025-02-20] MEDS: SENNOSIDES 8.6 MG TABLET GT ×2 (08:36→20:49)
[2025-02-20] MEDS: CHOLECALCIFEROL (VITAMIN D3) 25 MCG TABLET GT (08:36)
[2025-02-20] MEDS: CLOPIDOGREL BISULFATE 75 MG TABLET GT (08:36)
--- NOTE | 2025-02-20 12:20 | PD.SAPROG ---
Progress Note - SubAcute DIAGNOSIS (1) Acute arterial ischemic stroke, vertebrobasilar, brainstem: Status: Chronic Qualifiers: Laterality: left Qualified Code(s): I63.212 - Cerebral infarction due to unspecified occlusion or stenosis of left vertebral artery; I63.22 - Cerebral infarction due to unspecified occlusion or stenosis of basilar artery (2) Seizures, generalized convulsive: Status: Chronic (3) Chronic respiratory failure: Status: Chronic Qualifiers: Respiratory failure complication: unspecified whether with hypoxia or hypercapnia Qualified Code(s): J96.10 - Chronic respiratory failure, unspecified whether with hypoxia or hypercapnia (4) Altered glucose metabolism due to diabetes: Status: Chronic (5) Encephalopathy: Status: Chronic (6) Decubital ulcer: Status: Chronic (7) G tube feedings: Status: Chronic (8) Tracheostomy in place: Status: Chronic SUBJECTIVE Fever:: none Shortness of Breath:: none Pain:: none OBJECTIVE Most recent vital signs: Last Vital Signs Temp 97.5 F 02/22/25 05:44 Pulse 63 02/22/25 12:58 Resp 17 02/22/25 12:58 BP 124/67 02/22/25 07:38 Pulse Ox 98 02/22/25 12:58 O2 Del Method Blow-by 02/22/25 05:44 O2 Flow Rate 6 02/22/25 12:58 FiO2 28 02/22/25 12:58 Speech:: mouths words (sometimes) Answers questions:: sometimes (mostly by gestures) Respiratory:: lungs clear Cardiovascular: RRR Abdomen: soft Tracheostomy:: to blow by Feeding per:: G tube ASSESSMENT & PLAN Assessment: Pt seems to be fairly stable with all above diagnosis and with limited /guarded prognosis for recovery to independent living and needs all support. Family supportive Denies any pain. VSS 11-11-24 Met with family in pt's room and updated them as well as answered all questions. Reiterated limited prognosis for independent living. Neurology input on prognostic outlook and medication review followed. Repeat CT head ordered by neurologist was done and results discussed with the Neurologist who confirmed stable changes and recommended no change on medicine. This was updated with the family the No new issues , Talked with family at bedside and updated them. VSS. Started on Melatonin q hs 3 mgs prn to facilitate sleep. Pt had fever due to E. faecalis UTI and started on Vancomycin 1gm IVPB q 12 hourly on 12-28-24 Responded well and cleared. Family very actitvely participating in patient care Some constipation concerns, was given Lactulose . Being monitored but pt did not respond to treatment and was sent to the ER were he finally did poop and stabilized and returned to the [facility] at night doing well on the above treatment protocol. Now requiring Lactulose and occasional suppository for Constipation VSS Plan: Full support medical/nutritional and emotional towards maintaining some quality of life
[2025-02-20] MEDS: ATORVASTATIN 40 MG TABLET GT (20:50)
[2025-02-20] MEDS: MAGNESIUM HYDROXIDE 30 ML ORAL SUSP ML GT (21:21)
[2025-02-21] VITALS (9 sets, daily range): BP systolic 113–170; BP diastolic 69–80; PULSE 59–87; RESP 18–22; TEMP 36.6–36.7; O2SAT 95–99
[2025-02-21] MEDS: IPRATROPIUM/ALBUTEROL 3 ML AMPUL.NEB INH ×4 (00:10→18:29)
[2025-02-21] MEDS: INSULIN REGULAR, HUMAN 100 UNIT/ML VIAL SC (06:10)
[2025-02-21] MEDS: LEVOTHYROXINE 200 MCG TABLET GT (06:10)
[2025-02-21] MEDS: AMIODARONE 200 MG TABLET 400 MG GT (09:17)
[2025-02-21] MEDS: CHOLECALCIFEROL (VITAMIN D3) 25 MCG TABLET GT (09:17)
[2025-02-21] MEDS: SENNOSIDES 8.6 MG TABLET GT ×2 (09:17→20:36)
[2025-02-21] MEDS: APIXABAN 5 MG TABLET GT ×2 (09:17→20:36)
[2025-02-21] MEDS: DEX/HYPRO/GLY ARTIFICAL TEARS 225 DROP/15 ML BTL BOTH EYES ×2 (09:17→20:36)
[2025-02-21] MEDS: CLOPIDOGREL BISULFATE 75 MG TABLET GT (09:17)
[2025-02-21] MEDS: BISACODYL 10 MG SUPP.RECT PR (11:25)
[2025-02-21] MEDS: ATORVASTATIN 40 MG TABLET GT (20:36)
[2025-02-22] VITALS (8 sets, daily range): BP systolic 122–128; BP diastolic 67–81; PULSE 61–91; RESP 17–20; TEMP 36.4–36.9; O2SAT 96–98
[2025-02-22] MEDS: IPRATROPIUM/ALBUTEROL 3 ML AMPUL.NEB INH ×4 (01:44→18:00)
[2025-02-22] MEDS: LEVOTHYROXINE 200 MCG TABLET GT (05:57)
[2025-02-22] MEDS: INSULIN REGULAR, HUMAN 100 UNIT/ML VIAL SC (05:58)
[2025-02-22] MEDS: APIXABAN 5 MG TABLET GT ×2 (07:38→21:41)
[2025-02-22] MEDS: AMIODARONE 200 MG TABLET 400 MG GT (07:38)
[2025-02-22] MEDS: CLOPIDOGREL BISULFATE 75 MG TABLET GT (07:39)
[2025-02-22] MEDS: SENNOSIDES 8.6 MG TABLET GT ×2 (07:39→21:43)
[2025-02-22] MEDS: CHOLECALCIFEROL (VITAMIN D3) 25 MCG TABLET GT (07:39)
[2025-02-22] MEDS: DEX/HYPRO/GLY ARTIFICAL TEARS 225 DROP/15 ML BTL BOTH EYES ×2 (07:39→21:42)
[2025-02-22] MEDS: ATORVASTATIN 40 MG TABLET GT (21:42)
[2025-02-23] VITALS (8 sets, daily range): BP systolic 109–131; BP diastolic 59–73; PULSE 50–84; RESP 16–20; TEMP 36.6–36.8; O2SAT 97–99
[2025-02-23] MEDS: LEVOTHYROXINE 200 MCG TABLET GT (05:15)
[2025-02-23] MEDS: INSULIN REGULAR, HUMAN 100 UNIT/ML VIAL SC ×2 (06:19→17:03)
[2025-02-23] MEDS: IPRATROPIUM/ALBUTEROL 3 ML AMPUL.NEB INH ×4 (06:29→17:50)
[2025-02-23] MEDS: CLOPIDOGREL BISULFATE 75 MG TABLET GT (08:19)
[2025-02-23] MEDS: CHOLECALCIFEROL (VITAMIN D3) 25 MCG TABLET GT (08:19)
[2025-02-23] MEDS: APIXABAN 5 MG TABLET GT ×2 (08:19→21:17)
[2025-02-23] MEDS: DEX/HYPRO/GLY ARTIFICAL TEARS 225 DROP/15 ML BTL BOTH EYES ×2 (08:20→21:18)
[2025-02-23] MEDS: MAGNESIUM HYDROXIDE 30 ML ORAL SUSP ML GT (08:20)
[2025-02-23] MEDS: SENNOSIDES 8.6 MG TABLET GT ×2 (08:20→21:19)
[2025-02-23] MEDS: AMIODARONE 200 MG TABLET 400 MG GT (08:21)
--- NOTE | 2025-02-23 14:13 | PC.NURSE ---
At around 13:10, BATTERY ENGINEER went to check on resident when heard he was moaning, seem to be restless and noted that his trach was out with minimal bleeding. No s/s of respiratory distress noted. Replaced trach without difficulty, resident tolerated the procedure. V/S as follows: 151/74, 87, 25, 97.4, O2 sat 98%. MD made aware. Vital signs to be monitored every 4 hours x 24 hours and update MD as needed. Stable at this time. Resident's brother came in to visit resident.
[2025-02-23] MEDS: ATORVASTATIN 40 MG TABLET GT (21:17)
[2025-02-23] MEDS: MELATONIN 3 MG TABLET GT (21:20)
[2025-02-23] MEDS: ACETAMINOPHEN 325 MG TABLET 650 MG GT (21:22)
[2025-02-23] MEDS: BISACODYL 10 MG SUPP.RECT PR (23:39)
[2025-02-24] VITALS (8 sets, daily range): BP systolic 109–146; BP diastolic 61–69; PULSE 55–87; RESP 17–22; TEMP 36.3–36.6; O2SAT 96–99
[2025-02-24] MEDS: LEVOTHYROXINE 200 MCG TABLET GT (06:02)
[2025-02-24] MEDS: IPRATROPIUM/ALBUTEROL 3 ML AMPUL.NEB INH ×4 (06:24→18:29)
[2025-02-24] MEDS: AMIODARONE 200 MG TABLET 400 MG GT (08:42)
[2025-02-24] MEDS: APIXABAN 5 MG TABLET GT ×2 (08:43→20:35)
[2025-02-24] MEDS: CARBAMIDE PEROXIDE OTIC SOL 15 ML BTL 5 DROP BOTH EARS ×2 (08:43→20:35)
[2025-02-24] MEDS: CLOPIDOGREL BISULFATE 75 MG TABLET GT (08:43)
[2025-02-24] MEDS: CHOLECALCIFEROL (VITAMIN D3) 25 MCG TABLET GT (08:43)
[2025-02-24] MEDS: DEX/HYPRO/GLY ARTIFICAL TEARS 225 DROP/15 ML BTL BOTH EYES ×2 (08:43→20:35)
[2025-02-24] MEDS: SENNOSIDES 8.6 MG TABLET GT ×2 (08:43→20:35)
[2025-02-24] MEDS: ACETAMINOPHEN 325 MG TABLET 650 MG GT (08:44)
--- NOTE | 2025-02-24 12:20 | ESPR_ITS ---
Progress Note - SubAcute DIAGNOSIS (1) Acute arterial ischemic stroke, vertebrobasilar, brainstem: Status: Chronic Qualifiers: Laterality: left Qualified Code(s): I63.212 - Cerebral infarction due to unspecified occlusion or stenosis of left vertebral artery; I63.22 - Cerebral infarction due to unspecified occlusion or stenosis of basilar artery (2) Seizures, generalized convulsive: Status: Chronic (3) Chronic respiratory failure: Status: Chronic Qualifiers: Respiratory failure complication: unspecified whether with hypoxia or hypercapnia Qualified Code(s): J96.10 - Chronic respiratory failure, unspecified whether with hypoxia or hypercapnia (4) Altered glucose metabolism due to diabetes: Status: Chronic (5) Encephalopathy: Status: Chronic (6) Decubital ulcer: Status: Chronic (7) G tube feedings: Status: Chronic (8) Tracheostomy in place: Status: Chronic SUBJECTIVE Fever:: none Shortness of Breath:: none Pain:: none OBJECTIVE Most recent vital signs: Last Vital Signs Temp 98.3 F 03/01/25 17:14 Pulse 72 03/01/25 18:27 Resp 18 03/01/25 18:27 BP 149/80 H 03/01/25 17:14 Pulse Ox 95 03/01/25 18:27 O2 Del Method Blow-by 03/01/25 17:14 O2 Flow Rate 6 03/01/25 18:27 FiO2 28 03/01/25 18:27 Speech:: mouths words (sometimes) Answers questions:: sometimes (mostly by gestures) Respiratory:: lungs clear Cardiovascular: RRR Abdomen: soft Tracheostomy:: to blow by Feeding per:: G tube ASSESSMENT & PLAN Assessment: Pt seems to be fairly stable with all above diagnosis and with limited /guarded prognosis for recovery to independent living and needs all support. Family supportive Denies any pain. VSS 11-11-24 Met with family in pt's room and updated them as well as answered all questions. Reiterated limited prognosis for independent living. Neurology input on prognostic outlook and medication review followed. Repeat CT head ordered by neurologist was done and results discussed with the Neurologist who confirmed stable changes and recommended no change on medicine. This was updated with the family the No new issues , Talked with family at bedside and updated them. VSS. Started on Melatonin q hs 3 mgs prn to facilitate sleep. Pt had fever due to E. faecalis UTI and started on Vancomycin 1gm IVPB q 12 hourly on 12-28-24 Responded well and cleared. Family very actitvely participating in patient care Some constipation concerns, was given Lactulose . Being monitored but pt did not respond to treatment and was sent to the ER were he finally did poop and stabilized and returned to the [facility] at night doing well on the above treatment protocol. Now requiring Lactulose and occasional suppository for Constipation VSS. No new issues Plan: Full support medical/nutritional and emotional towards maintaining some quality of life
[2025-02-24] MEDS: ATORVASTATIN 40 MG TABLET GT (20:35)
[2025-02-25] VITALS (8 sets, daily range): BP systolic 109–128; BP diastolic 66–74; PULSE 50–73; RESP 18–20; TEMP 36.6–37; O2SAT 95–100
[2025-02-25] MEDS: IPRATROPIUM/ALBUTEROL 3 ML AMPUL.NEB INH ×3 (01:32→19:38)
[2025-02-25] MEDS: INSULIN REGULAR, HUMAN 100 UNIT/ML VIAL SC (05:35)
[2025-02-25] MEDS: LEVOTHYROXINE 200 MCG TABLET GT (05:35)
[2025-02-25] MEDS: AMIODARONE 200 MG TABLET 400 MG GT (08:32)
[2025-02-25] MEDS: CARBAMIDE PEROXIDE OTIC SOL 15 ML BTL 5 DROP BOTH EARS ×2 (08:32→21:03)
[2025-02-25] MEDS: APIXABAN 5 MG TABLET GT ×2 (08:32→21:03)
[2025-02-25] MEDS: CHOLECALCIFEROL (VITAMIN D3) 25 MCG TABLET GT (08:33)
[2025-02-25] MEDS: CLOPIDOGREL BISULFATE 75 MG TABLET GT (08:34)
[2025-02-25] MEDS: SENNOSIDES 8.6 MG TABLET GT ×2 (08:34→21:02)
[2025-02-25] MEDS: DEX/HYPRO/GLY ARTIFICAL TEARS 225 DROP/15 ML BTL BOTH EYES ×2 (08:34→21:03)
[2025-02-25] MEDS: ACETAMINOPHEN 325 MG TABLET 650 MG GT (13:15)
[2025-02-25] MEDS: ATORVASTATIN 40 MG TABLET GT (21:03)
[2025-02-25] MEDS: MELATONIN 3 MG TABLET GT (22:33)
[2025-02-26] VITALS (9 sets, daily range): BP systolic 112–147; BP diastolic 62–83; PULSE 62–98; RESP 18–22; TEMP 36.3–37.1; O2SAT 95–100
[2025-02-26] MEDS: IPRATROPIUM/ALBUTEROL 3 ML AMPUL.NEB INH ×4 (01:04→17:50)
[2025-02-26] MEDS: ACETAMINOPHEN 325 MG TABLET 650 MG GT (05:23)
[2025-02-26] MEDS: INSULIN REGULAR, HUMAN 100 UNIT/ML VIAL SC (05:24)
[2025-02-26] MEDS: LEVOTHYROXINE 200 MCG TABLET GT (05:24)
[2025-02-26] MEDS: AMIODARONE 200 MG TABLET 400 MG GT (08:22)
[2025-02-26] MEDS: CARBAMIDE PEROXIDE OTIC SOL 15 ML BTL 5 DROP BOTH EARS ×2 (08:23→20:42)
[2025-02-26] MEDS: SENNOSIDES 8.6 MG TABLET GT ×2 (08:23→20:42)
[2025-02-26] MEDS: CHOLECALCIFEROL (VITAMIN D3) 25 MCG TABLET GT (08:23)
[2025-02-26] MEDS: APIXABAN 5 MG TABLET GT ×2 (08:23→20:42)
[2025-02-26] MEDS: DEX/HYPRO/GLY ARTIFICAL TEARS 225 DROP/15 ML BTL BOTH EYES ×2 (08:23→20:42)
[2025-02-26] MEDS: CLOPIDOGREL BISULFATE 75 MG TABLET GT (08:23)
[2025-02-26] MEDS: MAGNESIUM HYDROXIDE 30 ML ORAL SUSP ML GT (14:20)
[2025-02-26] MEDS: ATORVASTATIN 40 MG TABLET GT (20:42)
[2025-02-26] MEDS: BISACODYL 10 MG SUPP.RECT PR (22:10)
[2025-02-27] VITALS (8 sets, daily range): BP systolic 100–127; BP diastolic 57–63; PULSE 50–75; RESP 18–20; TEMP 36.6–37.1; O2SAT 96–99
[2025-02-27] MEDS: ACETAMINOPHEN 325 MG TABLET 650 MG GT (03:25)
[2025-02-27] MEDS: LEVOTHYROXINE 200 MCG TABLET GT (05:14)
[2025-02-27] MEDS: INSULIN REGULAR, HUMAN 100 UNIT/ML VIAL SC (06:01)
[2025-02-27] MEDS: IPRATROPIUM/ALBUTEROL 3 ML AMPUL.NEB INH ×4 (06:39→16:54)
[2025-02-27] MEDS: AMIODARONE 200 MG TABLET 400 MG GT (09:41)
[2025-02-27] MEDS: CHOLECALCIFEROL (VITAMIN D3) 25 MCG TABLET GT (09:42)
[2025-02-27] MEDS: APIXABAN 5 MG TABLET GT ×2 (09:42→20:37)
[2025-02-27] MEDS: CLOPIDOGREL BISULFATE 75 MG TABLET GT (09:42)
[2025-02-27] MEDS: DEX/HYPRO/GLY ARTIFICAL TEARS 225 DROP/15 ML BTL BOTH EYES ×2 (09:42→20:38)
[2025-02-27] MEDS: CARBAMIDE PEROXIDE OTIC SOL 15 ML BTL 5 DROP BOTH EARS ×2 (09:42→20:37)
[2025-02-27] MEDS: SENNOSIDES 8.6 MG TABLET GT ×2 (09:43→20:38)
--- NOTE | 2025-02-27 16:02 | PC.SS ---
Room visit: Resident is laying in bed with head of the bed elevated with call light properly placed with no signs of distress. Resident and son are at bedside, resident continues to refuse to attend any out of room activities and prefers to stay in room in bed. Resident continues to medication regimen per MD. This SSD will continue to encourage participation from resident and will monitor for changes in mood and behavior.
[2025-02-27] MEDS: ATORVASTATIN 40 MG TABLET GT (20:37)
[2025-02-28] VITALS (9 sets, daily range): BP systolic 98–131; BP diastolic 60–76; PULSE 57–71; RESP 17–22; TEMP 36.4–37; O2SAT 96–99
[2025-02-28] MEDS: IPRATROPIUM/ALBUTEROL 3 ML AMPUL.NEB INH ×4 (00:52→18:25)
[2025-02-28] MEDS: LEVOTHYROXINE 200 MCG TABLET GT (05:40)
[2025-02-28] MEDS: CHOLECALCIFEROL (VITAMIN D3) 25 MCG TABLET GT (09:15)
[2025-02-28] MEDS: APIXABAN 5 MG TABLET GT ×2 (09:15→20:50)
[2025-02-28] MEDS: AMIODARONE 200 MG TABLET 400 MG GT (09:15)
[2025-02-28] MEDS: CLOPIDOGREL BISULFATE 75 MG TABLET GT (09:16)
[2025-02-28] MEDS: DEX/HYPRO/GLY ARTIFICAL TEARS 225 DROP/15 ML BTL BOTH EYES ×2 (09:16→20:49)
[2025-02-28] MEDS: SENNOSIDES 8.6 MG TABLET GT ×2 (09:17→20:49)
[2025-02-28] MEDS: ATORVASTATIN 40 MG TABLET GT (20:50)
--- NOTE | 2025-02-28 22:56 | PD.SAPROG ---
Progress Note - SubAcute DIAGNOSIS (1) Acute arterial ischemic stroke, vertebrobasilar, brainstem: Status: Chronic Qualifiers: Laterality: left Qualified Code(s): I63.212 - Cerebral infarction due to unspecified occlusion or stenosis of left vertebral artery; I63.22 - Cerebral infarction due to unspecified occlusion or stenosis of basilar artery (2) Seizures, generalized convulsive: Status: Chronic (3) Chronic respiratory failure: Status: Chronic Qualifiers: Respiratory failure complication: unspecified whether with hypoxia or hypercapnia Qualified Code(s): J96.10 - Chronic respiratory failure, unspecified whether with hypoxia or hypercapnia (4) Altered glucose metabolism due to diabetes: Status: Chronic (5) Encephalopathy: Status: Chronic (6) Decubital ulcer: Status: Chronic (7) G tube feedings: Status: Chronic (8) Tracheostomy in place: Status: Chronic SUBJECTIVE Fever:: none Shortness of Breath:: none Pain:: none OBJECTIVE Most recent vital signs: Last Vital Signs Temp 98.6 F 02/28/25 17:41 Pulse 59 L 02/28/25 18:25 Resp 18 02/28/25 18:25 BP 116/69 02/28/25 17:41 Pulse Ox 98 02/28/25 18:25 O2 Del Method Blow-by 02/28/25 17:41 O2 Flow Rate 6 02/28/25 18:25 FiO2 28 02/28/25 18:25 Speech:: mouths words (sometimes) Answers questions:: sometimes (mostly by gestures) Respiratory:: lungs clear Cardiovascular: RRR Abdomen: soft Tracheostomy:: to blow by Feeding per:: G tube ASSESSMENT & PLAN Assessment: Pt seems to be fairly stable with all above diagnosis and with limited /guarded prognosis for recovery to independent living and needs all support. Family supportive Denies any pain. VSS 11-11-24 Met with family in pt's room and updated them as well as answered all questions. Reiterated limited prognosis for independent living. Neurology input on prognostic outlook and medication review followed. Repeat CT head ordered by neurologist was done and results discussed with the Neurologist who confirmed stable changes and recommended no change on medicine. This was updated with the family the No new issues , Talked with family at bedside and updated them. VSS. Started on Melatonin q hs 3 mgs prn to facilitate sleep. Pt had fever due to E. faecalis UTI and started on Vancomycin 1gm IVPB q 12 hourly on 12-28-24 Responded well and cleared. Family very actitvely participating in patient care Some constipation concerns, was given Lactulose . Being monitored but pt did not respond to treatment and was sent to the ER were he finally did poop and stabilized and returned to the [facility] at night doing well on the above treatment protocol. Now requiring Lactulose and occasional suppository for Constipation VSS. No new issues Plan: Full support medical/nutritional and emotional towards maintaining some quality of life
[2025-03-01] VITALS (10 sets, daily range): BP systolic 106–149; BP diastolic 57–80; PULSE 56–94; RESP 17–22; TEMP 36.4–36.8; O2SAT 95–99
[2025-03-01] MEDS: IPRATROPIUM/ALBUTEROL 3 ML AMPUL.NEB INH ×4 (00:24→18:27)
[2025-03-01] MEDS: LEVOTHYROXINE 200 MCG TABLET GT (05:16)
[2025-03-01] MEDS: INSULIN REGULAR, HUMAN 100 UNIT/ML VIAL SC (05:17)
[2025-03-01] MEDS: APIXABAN 5 MG TABLET GT ×2 (08:16→20:42)
[2025-03-01] MEDS: AMIODARONE 200 MG TABLET 400 MG GT (08:16)
[2025-03-01] MEDS: DEX/HYPRO/GLY ARTIFICAL TEARS 225 DROP/15 ML BTL BOTH EYES ×2 (08:17→20:42)
[2025-03-01] MEDS: CHOLECALCIFEROL (VITAMIN D3) 25 MCG TABLET GT (08:17)
[2025-03-01] MEDS: CLOPIDOGREL BISULFATE 75 MG TABLET GT (08:17)
[2025-03-01] MEDS: SENNOSIDES 8.6 MG TABLET GT ×2 (08:17→20:43)
[2025-03-01] MEDS: ACETAMINOPHEN 325 MG TABLET 650 MG GT ×2 (08:18→20:44)
[2025-03-01] MEDS: ATORVASTATIN 40 MG TABLET GT (20:42)
[2025-03-01] MEDS: MELATONIN 3 MG TABLET GT (20:44)
[2025-03-01] MEDS: MAGNESIUM HYDROXIDE 30 ML ORAL SUSP ML GT (20:49)
[2025-03-02] VITALS (9 sets, daily range): BP systolic 108–140; BP diastolic 65–77; PULSE 51–76; RESP 14–20; TEMP 36.4–36.8; O2SAT 95–98
[2025-03-02] MEDS: IPRATROPIUM/ALBUTEROL 3 ML AMPUL.NEB INH ×4 (00:03→18:27)
[2025-03-02] MEDS: LEVOTHYROXINE 200 MCG TABLET GT (05:17)
[2025-03-02] MEDS: INSULIN REGULAR, HUMAN 100 UNIT/ML VIAL SC ×2 (05:19→17:14)
[2025-03-02] MEDS: CHOLECALCIFEROL (VITAMIN D3) 25 MCG TABLET GT (08:31)
[2025-03-02] MEDS: CLOPIDOGREL BISULFATE 75 MG TABLET GT (08:31)
[2025-03-02] MEDS: APIXABAN 5 MG TABLET GT ×2 (08:31→20:30)
[2025-03-02] MEDS: DEX/HYPRO/GLY ARTIFICAL TEARS 225 DROP/15 ML BTL BOTH EYES ×2 (08:31→20:30)
[2025-03-02] MEDS: SENNOSIDES 8.6 MG TABLET GT ×2 (08:32→20:30)
[2025-03-02 09:10] LABS: Albumin, Serum 3.4 gm/dL (3.4-4.8); Anion Gap 7 (7-16); BUN/Creatinine Ratio 17 Ratio (12-20); Blood Urea Nitrogen 15 mg/dL (9-23); Calcium 8.4 mg/dL (8.3-10.6); Calcium (Corrected) 8.9 mg/dL (8.5-10.1); Carbon Dioxide 32.1 mMol/L (20.0-31.0); Chloride 107 mMol/L (98-107); Creatinine (Component) 0.9 mg/dL (0.6-1.3); Estimated Creatinine Clearance 88.0 mL/min (>60); Glucose 189 mg/dL (74-106); Osmolality,Calculated 296 (275-295); Phosphorous 3.9 mg/dL (2.4-5.1); Potassium 4.7 mMol/L (3.4-5.1); Sodium 146 mMol/L (136-145); eGFR > 60 See Note
--- NOTE | 2025-03-02 19:19 | PC.NURSE ---
Resident noted very sleepy today. Responsive to verbal stimuli but falling asleep right away. Held amiodarone this am due to below parameter. all other vital signs WNL. Hand off report given to Poornima JIMÉNEZ. Will continue to monitor.
[2025-03-02] MEDS: ATORVASTATIN 40 MG TABLET GT (20:30)
[2025-03-02] MEDS: MAGNESIUM HYDROXIDE 30 ML ORAL SUSP ML GT (23:00)
[2025-03-03] VITALS (9 sets, daily range): BP systolic 102–138; BP diastolic 51–76; PULSE 55–89; RESP 16–20; TEMP 36.3–36.9; O2SAT 96–99
[2025-03-03] MEDS: IPRATROPIUM/ALBUTEROL 3 ML AMPUL.NEB INH ×4 (01:16→18:43)
[2025-03-03] MEDS: INSULIN REGULAR, HUMAN 100 UNIT/ML VIAL SC (05:20)
[2025-03-03] MEDS: LEVOTHYROXINE 200 MCG TABLET GT (05:20)
[2025-03-03] MEDS: APIXABAN 5 MG TABLET GT ×2 (08:36→20:38)
[2025-03-03] MEDS: DEX/HYPRO/GLY ARTIFICAL TEARS 225 DROP/15 ML BTL BOTH EYES ×2 (08:36→20:38)
[2025-03-03] MEDS: CHOLECALCIFEROL (VITAMIN D3) 25 MCG TABLET GT (08:36)
[2025-03-03] MEDS: SENNOSIDES 8.6 MG TABLET GT ×2 (08:36→20:21)
[2025-03-03] MEDS: CLOPIDOGREL BISULFATE 75 MG TABLET GT (08:36)
[2025-03-03] MEDS: AMIODARONE 200 MG TABLET 400 MG GT (08:36)
[2025-03-03] MEDS: ACETAMINOPHEN 325 MG TABLET 650 MG GT ×2 (08:38→17:45)
--- NOTE | 2025-03-03 13:34 | PC.RT ---
Pt placed on PMV with trach mask @1240. Family member at bedside. Continuous pulse ox on. Will continue to monitor pt.
[2025-03-03] MEDS: BISACODYL 10 MG SUPP.RECT PR (14:32)
--- NOTE | 2025-03-03 14:57 | PC.SS ---
Resident is laying in bed with head of the bed elevated with call light properly placed with no signs of distress. Resident has family at bedside daily, he at times becomes anxious and refuses to get out of bed for activities. Resident has slurred speech times hard to understand at times. Resident has no changes in care or condition her will remain in current care on blow by with trach in place and GT for education and nutrition. Resident will remain in current care and will have all subacute care needs met by staff. This SSD will continue to make daily contact with resident and monitor for changes in mood and behavior.
[2025-03-03] MEDS: ATORVASTATIN 40 MG TABLET GT (20:38)
[2025-03-04] VITALS (10 sets, daily range): BP systolic 117–169; BP diastolic 46–72; PULSE 59–86; RESP 16–118; TEMP 36.4–36.8; O2SAT 96–100
[2025-03-04] MEDS: IPRATROPIUM/ALBUTEROL 3 ML AMPUL.NEB INH ×4 (01:34→18:25)
[2025-03-04] MEDS: LEVOTHYROXINE 200 MCG TABLET GT (05:26)
[2025-03-04] MEDS: INSULIN REGULAR, HUMAN 100 UNIT/ML VIAL SC (05:26)
--- NOTE | 2025-03-04 05:30 | PC.NURSE ---
Resident had x1 episode of small bowel movement with blood in urine with small blood clot, received suppository on day shift. No other episodes of blood in stool noted.
[2025-03-04] MEDS: ACETAMINOPHEN 325 MG TABLET 650 MG GT (08:16)
[2025-03-04] MEDS: AMIODARONE 200 MG TABLET 400 MG GT (08:16)
[2025-03-04] MEDS: APIXABAN 5 MG TABLET GT ×2 (08:16→20:40)
[2025-03-04] MEDS: CHOLECALCIFEROL (VITAMIN D3) 25 MCG TABLET GT (08:17)
[2025-03-04] MEDS: SENNOSIDES 8.6 MG TABLET GT ×2 (08:17→20:40)
[2025-03-04] MEDS: CLOPIDOGREL BISULFATE 75 MG TABLET GT (08:17)
[2025-03-04] MEDS: DEX/HYPRO/GLY ARTIFICAL TEARS 225 DROP/15 ML BTL BOTH EYES ×2 (08:17→20:40)
[2025-03-04] MEDS: ATORVASTATIN 40 MG TABLET GT (20:40)
--- NOTE | 2025-03-04 22:32 | ESPR_ITS ---
Progress Note - SubAcute DIAGNOSIS (1) Acute arterial ischemic stroke, vertebrobasilar, brainstem: Status: Chronic Qualifiers: Laterality: left Qualified Code(s): I63.212 - Cerebral infarction due to unspecified occlusion or stenosis of left vertebral artery; I63.22 - Cerebral infarction due to unspecified occlusion or stenosis of basilar artery (2) Seizures, generalized convulsive: Status: Chronic (3) Chronic respiratory failure: Status: Chronic Qualifiers: Respiratory failure complication: unspecified whether with hypoxia or hypercapnia Qualified Code(s): J96.10 - Chronic respiratory failure, unspecified whether with hypoxia or hypercapnia (4) Altered glucose metabolism due to diabetes: Status: Chronic (5) Encephalopathy: Status: Chronic (6) Decubital ulcer: Status: Chronic (7) G tube feedings: Status: Chronic (8) Tracheostomy in place: Status: Chronic SUBJECTIVE Fever:: none Shortness of Breath:: none Pain:: none OBJECTIVE Most recent vital signs: Last Vital Signs Temp 98.3 F 03/04/25 18:00 Pulse 70 03/04/25 18:00 Resp 17 03/04/25 18:00 BP 169/70 H 03/04/25 18:00 Pulse Ox 97 03/04/25 18:00 O2 Del Method Blow-by 03/04/25 18:00 O2 Flow Rate 6 03/04/25 12:43 FiO2 30 03/04/25 12:43 Speech:: mouths words (sometimes) Answers questions:: sometimes (mostly by gestures) Respiratory:: lungs clear Cardiovascular: RRR Abdomen: soft Tracheostomy:: to blow by Feeding per:: G tube ASSESSMENT & PLAN Assessment: Pt seems to be fairly stable with all above diagnosis and with limited /guarded prognosis for recovery to independent living and needs all support. Family supportive Denies any pain. VSS 11-11-24 Met with family in pt's room and updated them as well as answered all questions. Reiterated limited prognosis for independent living. Neurology input on prognostic outlook and medication review followed. Repeat CT head ordered by neurologist was done and results discussed with the Neurologist who confirmed stable changes and recommended no change on medicine. This was updated with the family the No new issues , Talked with family at bedside and updated them. VSS. Started on Melatonin q hs 3 mgs prn to facilitate sleep. Pt had fever due to E. faecalis UTI and started on Vancomycin 1gm IVPB q 12 hourly on 12-28-24 Responded well and cleared. Family very actitvely participating in patient care Some constipation concerns, was given Lactulose . Being monitored but pt did not respond to treatment and was sent to the ER were he finally did poop and stabilized and returned to the [facility] at night doing well on the above treatment protocol. Now requiring Lactulose and occasional suppository for Constipation. Tolerating feeding. VSS. No new issues Plan: Full support medical/nutritional and emotional towards maintaining some quality of life
[2025-03-05] VITALS (9 sets, daily range): BP systolic 105–132; BP diastolic 69–75; PULSE 55–72; RESP 15–20; TEMP 36.1–36.8; O2SAT 96–99
[2025-03-05] MEDS: IPRATROPIUM/ALBUTEROL 3 ML AMPUL.NEB INH ×4 (00:06→19:32)
[2025-03-05] MEDS: LEVOTHYROXINE 200 MCG TABLET GT (05:34)
[2025-03-05] MEDS: INSULIN REGULAR, HUMAN 100 UNIT/ML VIAL SC ×2 (05:34→17:32)
[2025-03-05] MEDS: AMIODARONE 200 MG TABLET 400 MG GT (08:18)
[2025-03-05] MEDS: APIXABAN 5 MG TABLET GT ×2 (08:19→21:03)
[2025-03-05] MEDS: CLOPIDOGREL BISULFATE 75 MG TABLET GT (08:19)
[2025-03-05] MEDS: CHOLECALCIFEROL (VITAMIN D3) 25 MCG TABLET GT (08:19)
[2025-03-05] MEDS: SENNOSIDES 8.6 MG TABLET GT ×2 (08:20→21:03)
[2025-03-05] MEDS: DEX/HYPRO/GLY ARTIFICAL TEARS 225 DROP/15 ML BTL BOTH EYES ×2 (08:20→21:03)
[2025-03-05] MEDS: ATORVASTATIN 40 MG TABLET GT (21:03)
[2025-03-05] MEDS: MAGNESIUM HYDROXIDE 30 ML ORAL SUSP ML GT (21:03)
[2025-03-06] VITALS (9 sets, daily range): BP systolic 113–127; BP diastolic 55–73; PULSE 52–81; RESP 18–20; TEMP 36.2–36.6; O2SAT 96–100
[2025-03-06] MEDS: IPRATROPIUM/ALBUTEROL 3 ML AMPUL.NEB INH ×4 (01:02→19:12)
[2025-03-06] MEDS: INSULIN REGULAR, HUMAN 100 UNIT/ML VIAL SC (05:39)
[2025-03-06] MEDS: LEVOTHYROXINE 200 MCG TABLET GT (05:39)
[2025-03-06] MEDS: DEX/HYPRO/GLY ARTIFICAL TEARS 225 DROP/15 ML BTL BOTH EYES ×2 (08:26→20:28)
[2025-03-06] MEDS: CLOPIDOGREL BISULFATE 75 MG TABLET GT (08:26)
[2025-03-06] MEDS: APIXABAN 5 MG TABLET GT ×2 (08:26→20:28)
[2025-03-06] MEDS: CHOLECALCIFEROL (VITAMIN D3) 25 MCG TABLET GT (08:26)
[2025-03-06] MEDS: ACETAMINOPHEN 325 MG TABLET 650 MG GT (08:27)
[2025-03-06] MEDS: SENNOSIDES 8.6 MG TABLET GT ×2 (08:27→20:28)
--- NOTE | 2025-03-06 09:41 | ESPR_ITS ---
Progress Note - SubAcute DIAGNOSIS (1) Acute arterial ischemic stroke, vertebrobasilar, brainstem: Status: Chronic Qualifiers: Laterality: left Qualified Code(s): I63.212 - Cerebral infarction due to unspecified occlusion or stenosis of left vertebral artery; I63.22 - Cerebral infarction due to unspecified occlusion or stenosis of basilar artery (2) Seizures, generalized convulsive: Status: Chronic (3) Chronic respiratory failure: Status: Chronic Qualifiers: Respiratory failure complication: unspecified whether with hypoxia or hypercapnia Qualified Code(s): J96.10 - Chronic respiratory failure, unspecified whether with hypoxia or hypercapnia (4) Altered glucose metabolism due to diabetes: Status: Chronic (5) Encephalopathy: Status: Chronic (6) Decubital ulcer: Status: Chronic (7) G tube feedings: Status: Chronic (8) Tracheostomy in place: Status: Chronic SUBJECTIVE Fever:: none Shortness of Breath:: none Pain:: none OBJECTIVE Most recent vital signs: Last Vital Signs Temp 97.6 F 03/06/25 05:33 Pulse 53 L 03/06/25 08:26 Resp 18 03/06/25 06:15 BP 127/67 03/06/25 08:26 Pulse Ox 96 03/06/25 06:15 O2 Del Method Blow-by 03/06/25 05:33 O2 Flow Rate 6 03/06/25 06:15 FiO2 30 03/06/25 06:15 Speech:: mouths words (sometimes) Answers questions:: sometimes (mostly by gestures) Respiratory:: lungs clear Cardiovascular: RRR Abdomen: soft Tracheostomy:: to blow by Feeding per:: G tube ASSESSMENT & PLAN Assessment: Pt seems to be fairly stable with all above diagnosis and with limited /guarded prognosis for recovery to independent living and needs all support. Family supportive Denies any pain. VSS 11-11-24 Met with family in pt's room and updated them as well as answered all questions. Reiterated limited prognosis for independent living. Neurology input on prognostic outlook and medication review followed. Repeat CT head ordered by neurologist was done and results discussed with the Neurologist who confirmed stable changes and recommended no change on medicine. This was updated with the family the No new issues , Talked with family at bedside and updated them. VSS. Started on Melatonin q hs 3 mgs prn to facilitate sleep. Pt had fever due to E. faecalis UTI and started on Vancomycin 1gm IVPB q 12 hourly on 12-28-24 Responded well and cleared. Family very actitvely participating in patient care Some constipation concerns, was given Lactulose . Being monitored but pt did not respond to treatment and was sent to the ER were he finally did poop and stabilized and returned to the [facility] at night doing well on the above treatment protocol. Now requiring Lactulose and occasional suppository for Constipation. Tolerating feeding. VSS. No new issues Plan: Full support medical/nutritional and emotional towards maintaining some quality of life
[2025-03-06] MEDS: BISACODYL 10 MG SUPP.RECT PR (14:21)
[2025-03-06] MEDS: ATORVASTATIN 40 MG TABLET GT (20:28)
[2025-03-07] VITALS (9 sets, daily range): BP systolic 117–128; BP diastolic 66–73; PULSE 55–73; RESP 18–23; TEMP 36.5–36.8; O2SAT 97–99
[2025-03-07] MEDS: IPRATROPIUM/ALBUTEROL 3 ML AMPUL.NEB INH ×4 (00:17→19:08)
[2025-03-07] MEDS: LEVOTHYROXINE 200 MCG TABLET GT (05:35)
[2025-03-07 07:57] LABS: Thyroid Stimulating Hormone 1.58 uIU/mL (0.55-4.78)
[2025-03-07] MEDS: CLOPIDOGREL BISULFATE 75 MG TABLET GT (08:35)
[2025-03-07] MEDS: AMIODARONE 200 MG TABLET 400 MG GT (08:35)
[2025-03-07] MEDS: CHOLECALCIFEROL (VITAMIN D3) 25 MCG TABLET GT (08:35)
[2025-03-07] MEDS: APIXABAN 5 MG TABLET GT ×2 (08:35→21:09)
[2025-03-07] MEDS: DEX/HYPRO/GLY ARTIFICAL TEARS 225 DROP/15 ML BTL BOTH EYES ×2 (08:36→21:10)
[2025-03-07] MEDS: SENNOSIDES 8.6 MG TABLET GT ×2 (08:36→21:10)
[2025-03-07] MEDS: ACETAMINOPHEN 325 MG TABLET 650 MG GT ×2 (08:40→15:00)
[2025-03-07] MEDS: ATORVASTATIN 40 MG TABLET GT (21:10)
[2025-03-07] MEDS: MELATONIN 3 MG TABLET GT (21:11)
[2025-03-08] VITALS (9 sets, daily range): BP systolic 105–148; BP diastolic 60–77; PULSE 52–84; RESP 18–24; TEMP 36.2–36.8; O2SAT 96–100
[2025-03-08] MEDS: IPRATROPIUM/ALBUTEROL 3 ML AMPUL.NEB INH ×4 (00:09→19:19)
[2025-03-08] MEDS: INSULIN REGULAR, HUMAN 100 UNIT/ML VIAL SC (05:40)
[2025-03-08] MEDS: LEVOTHYROXINE 200 MCG TABLET GT (05:40)
[2025-03-08 07:21] LABS: Basophils # (Auto) 0.1 Thou/mm3 (0.0-0.2); Basophils % (Auto) 1 % (0-2.5); Eosinophils # (Auto) 0.1 Thou/mm3 (0.0-0.5); Eosinophils % (Auto) 2 % (0-10); Hematocrit 30.3 % (41.0-53.0); Hemoglobin 9.8 g/dL (13.5-16.0); Immature Granulocytes Auto 0.03 Thou/mm3 (0.00-0.00); Lymphocytes # (Auto) 1.3 Thou/mm3 (1.0-4.8); Lymphocytes % (Auto) 22 % (10-50); Mean Corpuscular HGB Conc 32.3 g/dl (31.0-37.0); Mean Corpuscular Hemoglobin 31.3 pg (25.0-35.0); Mean Corpuscular Volume 97 fL (80-100); Monocytes # (Auto) 0.5 Thou/mm3 (0.0-0.8); Monocytes % (Auto) 9 % (0-12); Neutrophils # (Auto) 3.9 Thou/mm3 (1.8-7.7); Neutrophils % (Auto) 65 % (37-80); Nucleated Red Blood Cell # 0.00 Thou/mm3 (0.00-0.00); Nucleated Red Blood Cell % 0 /100 WBC (0); Platelet Count 265 Thou/mm3 (140-440); RDW Standard Deviation 50.0 fL (35.1-43.9); Red Blood Count 3.13 Miln/mm3 (4.50-5.90); White Blood Count 6.0 Thou/mm3 (3.8-10.6)
[2025-03-08 07:48] LABS: Alanine Aminotransferase 59 U/L (10-49); Albumin, Serum 3.3 gm/dL (3.4-4.8); Alkaline Phosphatase 134 U/L (46-116); Anion Gap 7 (7-16); Aspartate Amino Transferase 51 U/L (0-34); BUN/Creatinine Ratio 18 Ratio (12-20); Bilirubin,Direct 0.1 mg/dL (0.0-0.3); Bilirubin,Total 0.2 mg/dL (0.3-1.2); Blood Urea Nitrogen 16 mg/dL (9-23); Calcium 8.1 mg/dL (8.3-10.6); Calcium (Corrected) 8.7 mg/dL (8.5-10.1); Carbon Dioxide 31.9 mMol/L (20.0-31.0); Cardiac Risk Estimate 2.0 RATIO (4.0-6.7); Chloride 105 mMol/L (98-107); Cholesterol 50 mg/dL (132-200); Creatinine (Component) 0.9 mg/dL (0.6-1.3); Estimated Creatinine Clearance 88.0 mL/min (>60); Glucose 170 mg/dL (74-106); Glucose Estimated Average 128 mg/dL (80-131); Glucose,Fasting 170 mg/dL (74-106); HDL Cholesterol 25 mg/dL (40-60); Hemoglobin A1C 6.1 % Hgb (4.8-6.0); LDL Cholesterol,Calculated 12 mg/dL (0-130); Osmolality,Calculated 292 (275-295); Phosphorous 3.8 mg/dL (2.4-5.1); Potassium 4.2 mMol/L (3.4-5.1); Sodium 144 mMol/L (136-145); Total Protein 5.6 gm/dL (5.7-8.2); Triglycerides 63 mg/dL (30-150); eGFR > 60 See Note
[2025-03-08] MEDS: APIXABAN 5 MG TABLET GT ×2 (08:16→20:15)
[2025-03-08] MEDS: AMIODARONE 200 MG TABLET 400 MG GT (08:16)
[2025-03-08] MEDS: LACTULOSE 10 GM/15 ML SOLUTION 20 GM GT (08:17)
[2025-03-08] MEDS: DEX/HYPRO/GLY ARTIFICAL TEARS 225 DROP/15 ML BTL BOTH EYES ×2 (08:17→20:15)
[2025-03-08] MEDS: CHOLECALCIFEROL (VITAMIN D3) 25 MCG TABLET GT (08:17)
[2025-03-08] MEDS: CLOPIDOGREL BISULFATE 75 MG TABLET GT (08:17)
[2025-03-08] MEDS: SENNOSIDES 8.6 MG TABLET GT ×2 (08:18→20:16)
[2025-03-08] MEDS: MAGNESIUM HYDROXIDE 30 ML ORAL SUSP ML GT (09:30)
[2025-03-08] MEDS: ACETAMINOPHEN 325 MG TABLET 650 MG GT (13:30)
[2025-03-08] MEDS: ATORVASTATIN 40 MG TABLET GT (20:15)
[2025-03-08] MEDS: BISACODYL 10 MG SUPP.RECT PR (21:30)
[2025-03-09] VITALS (9 sets, daily range): BP systolic 110–141; BP diastolic 65–77; PULSE 57–88; RESP 18–20; TEMP 36.5–37.2; O2SAT 97–99
[2025-03-09] MEDS: IPRATROPIUM/ALBUTEROL 3 ML AMPUL.NEB INH ×4 (00:27→19:25)
[2025-03-09] MEDS: LEVOTHYROXINE 200 MCG TABLET GT (05:14)
[2025-03-09] MEDS: INSULIN REGULAR, HUMAN 100 UNIT/ML VIAL SC (05:15)
[2025-03-09] MEDS: AMIODARONE 200 MG TABLET 400 MG GT (08:27)
[2025-03-09] MEDS: APIXABAN 5 MG TABLET GT ×2 (08:28→21:32)
[2025-03-09] MEDS: CLOPIDOGREL BISULFATE 75 MG TABLET GT (08:28)
[2025-03-09] MEDS: DEX/HYPRO/GLY ARTIFICAL TEARS 225 DROP/15 ML BTL BOTH EYES ×2 (08:28→21:33)
[2025-03-09] MEDS: CHOLECALCIFEROL (VITAMIN D3) 25 MCG TABLET GT (08:28)
[2025-03-09] MEDS: LACTULOSE 10 GM/15 ML SOLUTION 20 GM GT (08:29)
[2025-03-09] MEDS: SENNOSIDES 8.6 MG TABLET GT ×2 (08:29→21:33)
[2025-03-09] MEDS: ATORVASTATIN 40 MG TABLET GT (21:33)
[2025-03-10] VITALS (8 sets, daily range): BP systolic 110–131; BP diastolic 63–75; PULSE 58–88; RESP 18–20; TEMP 36.6–36.7; O2SAT 97–99
[2025-03-10] MEDS: IPRATROPIUM/ALBUTEROL 3 ML AMPUL.NEB INH ×4 (00:35→18:23)
[2025-03-10] MEDS: INSULIN REGULAR, HUMAN 100 UNIT/ML VIAL SC ×2 (05:56→18:15)
[2025-03-10] MEDS: LEVOTHYROXINE 200 MCG TABLET GT (05:57)
--- NOTE | 2025-03-10 08:25 | PC.RT ---
Pt pulled out trach while doing trach care. Replaced with spare trach at bedside. Nurse notified.
[2025-03-10] MEDS: AMIODARONE 200 MG TABLET 400 MG GT (09:01)
[2025-03-10] MEDS: DEX/HYPRO/GLY ARTIFICAL TEARS 225 DROP/15 ML BTL BOTH EYES ×2 (09:02→21:29)
[2025-03-10] MEDS: APIXABAN 5 MG TABLET GT ×2 (09:02→21:28)
[2025-03-10] MEDS: CLOPIDOGREL BISULFATE 75 MG TABLET GT (09:02)
[2025-03-10] MEDS: CHOLECALCIFEROL (VITAMIN D3) 25 MCG TABLET GT (09:02)
[2025-03-10] MEDS: LACTULOSE 10 GM/15 ML SOLUTION 20 GM GT (09:03)
[2025-03-10] MEDS: SENNOSIDES 8.6 MG TABLET GT ×2 (09:04→21:29)
[2025-03-10] MEDS: ATORVASTATIN 40 MG TABLET GT (21:29)
[2025-03-11] VITALS (9 sets, daily range): BP systolic 119–144; BP diastolic 67–82; PULSE 55–76; RESP 18–22; TEMP 36.6–36.9; O2SAT 96–100
[2025-03-11] MEDS: IPRATROPIUM/ALBUTEROL 3 ML AMPUL.NEB INH ×4 (00:55→18:24)
[2025-03-11] MEDS: LEVOTHYROXINE 200 MCG TABLET GT (05:13)
[2025-03-11] MEDS: INSULIN REGULAR, HUMAN 100 UNIT/ML VIAL SC ×2 (05:48→17:13)
[2025-03-11] MEDS: AMIODARONE 200 MG TABLET 400 MG GT (09:08)
[2025-03-11] MEDS: CHOLECALCIFEROL (VITAMIN D3) 25 MCG TABLET GT (09:08)
[2025-03-11] MEDS: SENNOSIDES 8.6 MG TABLET GT ×2 (09:08→20:53)
[2025-03-11] MEDS: DEX/HYPRO/GLY ARTIFICAL TEARS 225 DROP/15 ML BTL BOTH EYES ×2 (09:08→20:53)
[2025-03-11] MEDS: LACTULOSE 10 GM/15 ML SOLUTION 20 GM GT (09:08)
[2025-03-11] MEDS: CLOPIDOGREL BISULFATE 75 MG TABLET GT (09:08)
[2025-03-11] MEDS: APIXABAN 5 MG TABLET GT ×2 (09:08→20:52)
--- NOTE | 2025-03-11 15:15 | PD.SAPROG ---
Progress Note - SubAcute DIAGNOSIS (1) Acute arterial ischemic stroke, vertebrobasilar, brainstem: Status: Chronic Qualifiers: Laterality: left Qualified Code(s): I63.212 - Cerebral infarction due to unspecified occlusion or stenosis of left vertebral artery; I63.22 - Cerebral infarction due to unspecified occlusion or stenosis of basilar artery (2) Seizures, generalized convulsive: Status: Chronic (3) Chronic respiratory failure: Status: Chronic Qualifiers: Respiratory failure complication: unspecified whether with hypoxia or hypercapnia Qualified Code(s): J96.10 - Chronic respiratory failure, unspecified whether with hypoxia or hypercapnia (4) Altered glucose metabolism due to diabetes: Status: Chronic (5) Encephalopathy: Status: Chronic (6) Decubital ulcer: Status: Chronic (7) G tube feedings: Status: Chronic (8) Tracheostomy in place: Status: Chronic SUBJECTIVE Fever:: none Shortness of Breath:: none Pain:: none OBJECTIVE Most recent vital signs: Last Vital Signs Temp 97.4 F 03/15/25 06:00 Pulse 65 03/15/25 06:52 Resp 16 03/15/25 06:52 BP 117/64 03/15/25 06:00 Pulse Ox 100 03/15/25 06:52 O2 Del Method Blow-by 03/15/25 06:00 O2 Flow Rate 8 03/15/25 06:52 FiO2 30 03/15/25 06:52 Speech:: mouths words (sometimes) Answers questions:: sometimes (mostly by gestures) Respiratory:: lungs clear Cardiovascular: RRR Abdomen: soft Tracheostomy:: to blow by Feeding per:: G tube ASSESSMENT & PLAN Assessment: Pt seems to be fairly stable with all above diagnosis and with limited /guarded prognosis for recovery to independent living and needs all support. Family supportive Denies any pain. VSS 11-11-24 Met with family in pt's room and updated them as well as answered all questions. Reiterated limited prognosis for independent living. Neurology input on prognostic outlook and medication review followed. Repeat CT head ordered by neurologist was done and results discussed with the Neurologist who confirmed stable changes and recommended no change on medicine. This was updated with the family the No new issues , Talked with family at bedside and updated them. VSS. Started on Melatonin q hs 3 mgs prn to facilitate sleep. Pt had fever due to E. faecalis UTI and started on Vancomycin 1gm IVPB q 12 hourly on 12-28-24 Responded well and cleared. Family very actitvely participating in patient care Some constipation concerns, was given Lactulose . Being monitored but pt did not respond to treatment and was sent to the ER were he finally did poop and stabilized and returned to the [facility] at night doing well on the above treatment protocol. Now requiring Lactulose and occasional suppository for Constipation. Tolerating feeding. VSS. No new issues Plan: Full support medical/nutritional and emotional towards maintaining some quality of life
[2025-03-11] MEDS: ATORVASTATIN 40 MG TABLET GT (20:53)
[2025-03-11] MEDS: MELATONIN 3 MG TABLET GT (21:00)
[2025-03-12] VITALS (9 sets, daily range): BP systolic 100–135; BP diastolic 58–74; PULSE 53–76; RESP 18–21; TEMP 36.4–37; O2SAT 95–100
[2025-03-12] MEDS: IPRATROPIUM/ALBUTEROL 3 ML AMPUL.NEB INH ×4 (01:18→19:05)
[2025-03-12] MEDS: LEVOTHYROXINE 200 MCG TABLET GT (05:29)
[2025-03-12 06:47] LABS: Levetiracetam (Keppra)* 16.5 mcg/mL (6.0-46.0)
[2025-03-12] MEDS: LACTULOSE 10 GM/15 ML SOLUTION 20 GM GT (08:31)
[2025-03-12] MEDS: CHOLECALCIFEROL (VITAMIN D3) 25 MCG TABLET GT (08:31)
[2025-03-12] MEDS: APIXABAN 5 MG TABLET GT ×2 (08:31→20:42)
[2025-03-12] MEDS: CLOPIDOGREL BISULFATE 75 MG TABLET GT (08:31)
[2025-03-12] MEDS: AMIODARONE 200 MG TABLET 400 MG GT (08:31)
[2025-03-12] MEDS: DEX/HYPRO/GLY ARTIFICAL TEARS 225 DROP/15 ML BTL BOTH EYES ×2 (08:31→20:45)
[2025-03-12] MEDS: SENNOSIDES 8.6 MG TABLET GT ×2 (08:32→20:45)
[2025-03-12] MEDS: ACETAMINOPHEN 325 MG TABLET 650 MG GT (17:30)
[2025-03-12] MEDS: ATORVASTATIN 40 MG TABLET GT (20:44)
[2025-03-12] MEDS: MELATONIN 3 MG TABLET GT (20:46)
[2025-03-12] MEDS: MAGNESIUM HYDROXIDE 30 ML ORAL SUSP ML GT (21:20)
[2025-03-13] VITALS (9 sets, daily range): BP systolic 102–132; BP diastolic 61–72; PULSE 61–74; RESP 18–25; TEMP 36.2–36.9; O2SAT 96–99
[2025-03-13] MEDS: IPRATROPIUM/ALBUTEROL 3 ML AMPUL.NEB INH ×4 (00:37→15:50)
[2025-03-13] MEDS: LEVOTHYROXINE 200 MCG TABLET GT (05:37)
[2025-03-13] MEDS: AMIODARONE 200 MG TABLET 400 MG GT (08:31)
[2025-03-13] MEDS: APIXABAN 5 MG TABLET GT ×2 (08:32→20:36)
[2025-03-13] MEDS: CHOLECALCIFEROL (VITAMIN D3) 25 MCG TABLET GT (08:33)
[2025-03-13] MEDS: CLOPIDOGREL BISULFATE 75 MG TABLET GT (08:35)
[2025-03-13] MEDS: SENNOSIDES 8.6 MG TABLET GT ×2 (08:35→20:40)
[2025-03-13] MEDS: DEX/HYPRO/GLY ARTIFICAL TEARS 225 DROP/15 ML BTL BOTH EYES ×2 (08:35→20:38)
[2025-03-13] MEDS: LACTULOSE 10 GM/15 ML SOLUTION 20 GM GT (08:35)
[2025-03-13] MEDS: BISACODYL 10 MG SUPP.RECT PR (18:39)
[2025-03-13] MEDS: ATORVASTATIN 40 MG TABLET GT (20:36)
[2025-03-13] MEDS: ACETAMINOPHEN 325 MG TABLET 650 MG GT (20:36)
[2025-03-13] MEDS: MELATONIN 3 MG TABLET GT (20:37)
[2025-03-14] VITALS (9 sets, daily range): BP systolic 111–122; BP diastolic 54–70; PULSE 63–76; RESP 18–20; TEMP 36.4–37.1; O2SAT 94–100
[2025-03-14] MEDS: IPRATROPIUM/ALBUTEROL 3 ML AMPUL.NEB INH ×4 (00:22→19:21)
[2025-03-14] MEDS: LEVOTHYROXINE 200 MCG TABLET GT (05:32)
[2025-03-14] MEDS: INSULIN REGULAR, HUMAN 100 UNIT/ML VIAL SC ×2 (05:32→17:34)
[2025-03-14] MEDS: AMIODARONE 200 MG TABLET 400 MG GT (08:22)
[2025-03-14] MEDS: CLOPIDOGREL BISULFATE 75 MG TABLET GT (08:22)
[2025-03-14] MEDS: SENNOSIDES 8.6 MG TABLET GT ×2 (08:22→20:27)
[2025-03-14] MEDS: LACTULOSE 10 GM/15 ML SOLUTION 20 GM GT (08:22)
[2025-03-14] MEDS: APIXABAN 5 MG TABLET GT ×2 (08:22→20:26)
[2025-03-14] MEDS: DEX/HYPRO/GLY ARTIFICAL TEARS 225 DROP/15 ML BTL BOTH EYES ×2 (08:22→20:26)
[2025-03-14] MEDS: CHOLECALCIFEROL (VITAMIN D3) 25 MCG TABLET GT (08:22)
[2025-03-14] MEDS: ATORVASTATIN 40 MG TABLET GT (20:26)
[2025-03-14] MEDS: ACETAMINOPHEN 325 MG TABLET 650 MG GT (20:26)
[2025-03-14] MEDS: MELATONIN 3 MG TABLET GT (20:27)
[2025-03-15] VITALS (8 sets, daily range): BP systolic 117–159; BP diastolic 64–85; PULSE 57–99; RESP 16–20; TEMP 36.3–37.2; O2SAT 94–100
[2025-03-15] MEDS: IPRATROPIUM/ALBUTEROL 3 ML AMPUL.NEB INH ×4 (00:10→19:46)
[2025-03-15] MEDS: LEVOTHYROXINE 200 MCG TABLET GT (05:17)
[2025-03-15] MEDS: INSULIN REGULAR, HUMAN 100 UNIT/ML VIAL SC ×2 (05:30→17:49)
[2025-03-15] MEDS: DEX/HYPRO/GLY ARTIFICAL TEARS 225 DROP/15 ML BTL BOTH EYES ×2 (08:20→20:19)
[2025-03-15] MEDS: CHOLECALCIFEROL (VITAMIN D3) 25 MCG TABLET GT (08:20)
[2025-03-15] MEDS: CLOPIDOGREL BISULFATE 75 MG TABLET GT (08:20)
[2025-03-15] MEDS: AMIODARONE 200 MG TABLET 400 MG GT (08:20)
[2025-03-15] MEDS: APIXABAN 5 MG TABLET GT ×2 (08:20→20:18)
[2025-03-15] MEDS: LACTULOSE 10 GM/15 ML SOLUTION 20 GM GT (08:21)
[2025-03-15] MEDS: SENNOSIDES 8.6 MG TABLET GT ×2 (08:22→20:19)
--- NOTE | 2025-03-15 18:51 | PC.NURSE ---
Resident's abdomen noted to be distended. Denies any pain or discomfort at this time during palpation. Able to release a lot of air through the gtube. With active bowel sounds x 4.
[2025-03-15] MEDS: ATORVASTATIN 40 MG TABLET GT (20:18)
[2025-03-15] MEDS: ACETAMINOPHEN 325 MG TABLET 650 MG GT (20:21)
[2025-03-16] VITALS (9 sets, daily range): BP systolic 116–160; BP diastolic 63–80; PULSE 57–86; RESP 18–20; TEMP 36.1–37.2; O2SAT 95–100; BMI 21.7
[2025-03-16] MEDS: IPRATROPIUM/ALBUTEROL 3 ML AMPUL.NEB INH ×4 (01:24→19:36)
[2025-03-16] MEDS: LEVOTHYROXINE 200 MCG TABLET GT (05:06)
[2025-03-16] MEDS: CLOPIDOGREL BISULFATE 75 MG TABLET GT (08:35)
[2025-03-16] MEDS: APIXABAN 5 MG TABLET GT ×2 (08:35→20:31)
[2025-03-16] MEDS: DEX/HYPRO/GLY ARTIFICAL TEARS 225 DROP/15 ML BTL BOTH EYES ×2 (08:35→20:31)
[2025-03-16] MEDS: CHOLECALCIFEROL (VITAMIN D3) 25 MCG TABLET GT (08:35)
[2025-03-16] MEDS: AMIODARONE 200 MG TABLET 400 MG GT (08:35)
[2025-03-16] MEDS: LACTULOSE 10 GM/15 ML SOLUTION 20 GM GT (08:35)
[2025-03-16] MEDS: SENNOSIDES 8.6 MG TABLET GT ×2 (08:35→20:31)
[2025-03-16] MEDS: INSULIN REGULAR, HUMAN 100 UNIT/ML VIAL SC (17:42)
[2025-03-16] MEDS: ATORVASTATIN 40 MG TABLET GT (20:31)
[2025-03-16] MEDS: ACETAMINOPHEN 325 MG TABLET 650 MG GT (20:32)
[2025-03-16] MEDS: MELATONIN 3 MG TABLET GT (20:39)
[2025-03-17] VITALS (9 sets, daily range): BP systolic 110–134; BP diastolic 63–75; PULSE 56–80; RESP 16–20; TEMP 36.6–37.4; O2SAT 95–99
[2025-03-17] MEDS: IPRATROPIUM/ALBUTEROL 3 ML AMPUL.NEB INH ×5 (00:46→23:59)
[2025-03-17] MEDS: LEVOTHYROXINE 200 MCG TABLET GT (05:07)
[2025-03-17] MEDS: AMIODARONE 200 MG TABLET 400 MG GT (09:02)
[2025-03-17] MEDS: CHOLECALCIFEROL (VITAMIN D3) 25 MCG TABLET GT (09:03)
[2025-03-17] MEDS: LACTULOSE 10 GM/15 ML SOLUTION 20 GM GT ×2 (09:03→20:30)
[2025-03-17] MEDS: CLOPIDOGREL BISULFATE 75 MG TABLET GT (09:03)
[2025-03-17] MEDS: DEX/HYPRO/GLY ARTIFICAL TEARS 225 DROP/15 ML BTL BOTH EYES ×2 (09:03→20:30)
[2025-03-17] MEDS: APIXABAN 5 MG TABLET GT ×2 (09:03→20:30)
[2025-03-17] MEDS: SENNOSIDES 8.6 MG TABLET GT ×2 (09:03→20:30)
[2025-03-17] MEDS: ACETAMINOPHEN 325 MG TABLET 650 MG GT (16:28)
--- NOTE | 2025-03-17 17:17 | XR_ITS ---
Examination: Abdomen sonogram, Limited Date and time of exam: March 17, 2025 1730 hours INDICATIONS: Assess IVC filter Technique: Real-time ochoa scale transabdominal sonographic images of the upper abdomen obtained. Findings: Extensive bowel gas obscures detail of the inferior vena cava IMPRESSION: Consider CT scan abdomen without contrast follow-up to assess position of the IVC filter
--- NOTE | 2025-03-17 17:18 | PC.NURSE ---
Seen by Dr East, with family members at bedside. expressed concern about resident's IVC filter. Resident will have an appointment with Dr Mckeon on june 24 to check on it. Order received from Dr East to do US to check for the placement. Called US and said to do US abdomen limited.
[2025-03-17] MEDS: SODIUM PHOSPHATE,MONO-DIBASIC 133 ML ENEMA PR (17:20)
--- NOTE | 2025-03-17 17:31 | PC.NURSE ---
Resident noted with episodes of desturation. On continoue pulse ox. RT was passing by the hallway and resident's O2 saturation noted to be at 88%. RT then increased FIO2 to 100 %. Suctioned as needed. No s/s of respiratory distress noted. Breathing treatment was given. Currently on 40% at 10 L with O2 saturation of 93-94%. Discussed with Dr East during IDT and seen by MD , ordered for mucomyst 3x a day for 3 days. RT on duty made aware. Resident's called and was given updates by the [employer] ATTENDANT in charge.
--- NOTE | 2025-03-17 18:27 | PC.NURSE ---
Resident c/o pain left side of abdomen to mid abdomen. Noted with BM yesterday. Currently on Lactulose daily. Called Dr East and made aware with order received to increase lactulose to BID. Verbally reported resident's US report to check on the IVC filter placement, which has a findings of extensive bowel gas obscure detail of the inferior vena cava and to consider CT scan without contrast. No order received from MD to do CT scan at this time. MD aware that resident will have an appointment with Dr Tse on 06/24/25 for the IVC filter. Dr East said to ask IR tomorrow if Dr Seymour is doing IVC removal.
--- NOTE | 2025-03-17 18:36 | PC.NURSE ---
At 1620 when DEVELOPMENTAL SPECIALIST changed & repositioned pt she reported to this writter pt was c/o pain to abdomen and abdomen was firm and slightly distended when palpated. Med nurse informed and medicated with acetaminophen 325 mg x2 tablets PRN via g-tube. at bed side concerned and reported to this nurse pt was uncomfortable and unable to pass gas. Nurse attempted to insert rectal tube but unsuccessful. Rectal tube became clogged with BM. Fleets enema administered @ this time due to high empaction pt unable to retain most of the enema. Charge nurse was made aware of incident. At 1815 enema appeared effective resident had large hard/ formed BM. no further c/o pain or discomfort.
[2025-03-17] MEDS: ATORVASTATIN 40 MG TABLET GT (20:30)
[2025-03-18] VITALS (8 sets, daily range): BP systolic 113–126; BP diastolic 54–63; PULSE 58–70; RESP 18–22; TEMP 36.6–37.2; O2SAT 98–100
[2025-03-18] MEDS: INSULIN REGULAR, HUMAN 100 UNIT/ML VIAL SC (05:38)
[2025-03-18] MEDS: IPRATROPIUM/ALBUTEROL 3 ML AMPUL.NEB INH ×3 (06:40→19:41)
[2025-03-18] MEDS: AMIODARONE 200 MG TABLET 400 MG GT (09:04)
[2025-03-18] MEDS: CHOLECALCIFEROL (VITAMIN D3) 25 MCG TABLET GT (09:06)
[2025-03-18] MEDS: LACTULOSE 10 GM/15 ML SOLUTION 20 GM GT ×2 (09:06→21:15)
[2025-03-18] MEDS: SENNOSIDES 8.6 MG TABLET GT ×2 (09:06→21:15)
[2025-03-18] MEDS: DEX/HYPRO/GLY ARTIFICAL TEARS 225 DROP/15 ML BTL BOTH EYES ×2 (09:06→21:15)
[2025-03-18] MEDS: CLOPIDOGREL BISULFATE 75 MG TABLET GT (09:06)
[2025-03-18] MEDS: APIXABAN 5 MG TABLET GT ×2 (09:06→21:15)
[2025-03-18] MEDS: ACETAMINOPHEN 325 MG TABLET 650 MG GT ×2 (14:12→21:14)
--- NOTE | 2025-03-18 14:37 | PC.SS ---
This SSD called neurology center to move resident scheduled appointment in Jun 24, new appointment scheduled for May 06 @ 1000. Resident will be transported via gurney transfer with [facility] transportation. Charge nurse made aware.
--- NOTE | 2025-03-18 15:17 | PC.NURSE ---
resident last sodium level noted to be 148, currently on max fluid flush of 500 ml each shift. Order received from Dr East to increase water flush to 700 ml max q shift. With order to do renal panel on 03/24 to follow up on sodium level.
--- NOTE | 2025-03-18 15:19 | PC.NURSE ---
Dr Seymour doesn't perform procedure IVC filter removal as per earth science laboratory technician. was able to get a sooner appointment with Dr Mckeon on 05/06/25 at 10:[address] East and made aware , no new orders made at this time. No pathak at this time as per .
--- NOTE | 2025-03-18 15:28 | PC.SS ---
Resident has no changes in care or condition he remains on blow by with trach in place and GT for medication and nutrition. Resident is able to make simple needs known, he has cognitive impairment, his Jen is his decision maker. Resident will remain in current care and will continue to have all subacute care needs met by staff. This SSD will continue to make daily contact with resident and will monitor for changes in mood and behavior.
--- NOTE | 2025-03-18 16:40 | PC.NURSE ---
Resident's and son at bedside, made aware of resident's appointment with Dr Mckeon to follow up the IVC filter on 06/06/25 at 10:30
[2025-03-18] MEDS: ATORVASTATIN 40 MG TABLET GT (21:15)
[2025-03-18] MEDS: MAGNESIUM HYDROXIDE 30 ML ORAL SUSP ML GT (21:16)
[2025-03-19] VITALS (9 sets, daily range): BP systolic 110–144; BP diastolic 61–68; PULSE 58–76; RESP 18–22; TEMP 36.3–36.8; O2SAT 97–100
[2025-03-19] MEDS: IPRATROPIUM/ALBUTEROL 3 ML AMPUL.NEB INH ×4 (01:15→18:38)
[2025-03-19] MEDS: LEVOTHYROXINE 200 MCG TABLET GT (05:20)
[2025-03-19] MEDS: INSULIN REGULAR, HUMAN 100 UNIT/ML VIAL SC ×2 (05:52→17:26)
[2025-03-19] MEDS: AMIODARONE 200 MG TABLET 400 MG GT (08:28)
[2025-03-19] MEDS: APIXABAN 5 MG TABLET GT ×2 (08:30→20:29)
[2025-03-19] MEDS: CHOLECALCIFEROL (VITAMIN D3) 25 MCG TABLET GT (08:30)
[2025-03-19] MEDS: CLOPIDOGREL BISULFATE 75 MG TABLET GT (08:35)
[2025-03-19] MEDS: DEX/HYPRO/GLY ARTIFICAL TEARS 225 DROP/15 ML BTL BOTH EYES ×2 (08:35→20:29)
[2025-03-19] MEDS: LACTULOSE 10 GM/15 ML SOLUTION 20 GM GT ×2 (08:36→20:29)
[2025-03-19] MEDS: SENNOSIDES 8.6 MG TABLET GT ×2 (08:37→20:29)
--- NOTE | 2025-03-19 15:44 | ESPR_ITS ---
Progress Note - SubAcute DIAGNOSIS (1) Acute arterial ischemic stroke, vertebrobasilar, brainstem: Status: Chronic Qualifiers: Laterality: left Qualified Code(s): I63.212 - Cerebral infarction due to unspecified occlusion or stenosis of left vertebral artery; I63.22 - Cerebral infarction due to unspecified occlusion or stenosis of basilar artery (2) Seizures, generalized convulsive: Status: Chronic (3) Chronic respiratory failure: Status: Chronic Qualifiers: Respiratory failure complication: unspecified whether with hypoxia or hypercapnia Qualified Code(s): J96.10 - Chronic respiratory failure, unspecified whether with hypoxia or hypercapnia (4) Altered glucose metabolism due to diabetes: Status: Chronic (5) Encephalopathy: Status: Chronic (6) Decubital ulcer: Status: Chronic (7) G tube feedings: Status: Chronic (8) Tracheostomy in place: Status: Chronic SUBJECTIVE Fever:: none Shortness of Breath:: none Pain:: none OBJECTIVE Most recent vital signs: Last Vital Signs Temp 98.2 F 03/19/25 11:21 Pulse 68 03/19/25 13:16 Resp 20 03/19/25 13:16 BP 115/61 03/19/25 11:21 Pulse Ox 97 03/19/25 13:16 O2 Del Method Room Air 03/15/25 17:12 O2 Flow Rate 6 03/19/25 06:40 FiO2 28 03/19/25 13:16 Speech:: mouths words (sometimes) Answers questions:: sometimes (mostly by gestures) Respiratory:: lungs clear Cardiovascular: RRR Abdomen: soft Tracheostomy:: to blow by Feeding per:: G tube ASSESSMENT & PLAN Assessment: Pt seems to be fairly stable with all above diagnosis and with limited /guarded prognosis for recovery to independent living and needs all support. Family supportive Denies any pain. VSS 11-11-24 Met with family in pt's room and updated them as well as answered all questions. Reiterated limited prognosis for independent living. Neurology input on prognostic outlook and medication review followed. Repeat CT head ordered by neurologist was done and results discussed with the Neurologist who confirmed stable changes and recommended no change on medicine. This was updated with the family the No new issues , Talked with family at bedside and updated them. VSS. Started on Melatonin q hs 3 mgs prn to facilitate sleep. Pt had fever due to E. faecalis UTI and started on Vancomycin 1gm IVPB q 12 hourly on 12-28-24 Responded well and cleared. Family very actitvely participating in patient care Some constipation concerns, was given Lactulose . Being monitored but pt did not respond to treatment and was sent to the ER were he finally did poop and stabilized and returned to the [facility] at night doing well on the above treatment protocol. Now requiring Lactulose and occasional suppository for Constipation. Tolerating feeding. VSS. No new issues. Bowel movements somewhat improved on increasing Lactulose Plan: Full support medical/nutritional and emotional towards maintaining some quality of life
[2025-03-19] MEDS: ATORVASTATIN 40 MG TABLET GT (20:29)
[2025-03-20] VITALS (10 sets, daily range): BP systolic 117–146; BP diastolic 62–72; PULSE 50–81; RESP 16–23; TEMP 36.4–36.7; O2SAT 96–100
[2025-03-20] MEDS: IPRATROPIUM/ALBUTEROL 3 ML AMPUL.NEB INH ×4 (00:36→19:10)
[2025-03-20] MEDS: LEVOTHYROXINE 200 MCG TABLET GT (05:18)
[2025-03-20] MEDS: APIXABAN 5 MG TABLET GT ×2 (08:59→21:01)
[2025-03-20] MEDS: AMIODARONE 200 MG TABLET 400 MG GT (08:59)
[2025-03-20] MEDS: CLOPIDOGREL BISULFATE 75 MG TABLET GT (09:00)
[2025-03-20] MEDS: DEX/HYPRO/GLY ARTIFICAL TEARS 225 DROP/15 ML BTL BOTH EYES ×2 (09:00→21:02)
[2025-03-20] MEDS: CHOLECALCIFEROL (VITAMIN D3) 25 MCG TABLET GT (09:00)
[2025-03-20] MEDS: LACTULOSE 10 GM/15 ML SOLUTION 20 GM GT ×2 (09:01→21:02)
[2025-03-20] MEDS: SENNOSIDES 8.6 MG TABLET GT ×2 (09:01→21:02)
[2025-03-20] MEDS: ACETAMINOPHEN 325 MG TABLET 650 MG GT (14:30)
[2025-03-20] MEDS: MAGNESIUM HYDROXIDE 30 ML ORAL SUSP ML GT (20:58)
[2025-03-20] MEDS: ATORVASTATIN 40 MG TABLET GT (21:02)
[2025-03-20] MEDS: MELATONIN 3 MG TABLET GT (21:07)
[2025-03-21] VITALS (8 sets, daily range): BP systolic 119–134; BP diastolic 67–80; PULSE 59–102; RESP 18–21; TEMP 36–36.9; O2SAT 97–100
[2025-03-21] MEDS: IPRATROPIUM/ALBUTEROL 3 ML AMPUL.NEB INH ×4 (00:57→19:41)
[2025-03-21] MEDS: LEVOTHYROXINE 200 MCG TABLET GT (05:05)
[2025-03-21] MEDS: SENNOSIDES 8.6 MG TABLET GT ×2 (08:13→20:47)
[2025-03-21] MEDS: LACTULOSE 10 GM/15 ML SOLUTION 20 GM GT ×2 (08:13→20:47)
[2025-03-21] MEDS: CHOLECALCIFEROL (VITAMIN D3) 25 MCG TABLET GT (08:14)
[2025-03-21] MEDS: CLOPIDOGREL BISULFATE 75 MG TABLET GT (08:14)
[2025-03-21] MEDS: APIXABAN 5 MG TABLET GT ×2 (08:14→20:46)
[2025-03-21] MEDS: DEX/HYPRO/GLY ARTIFICAL TEARS 225 DROP/15 ML BTL BOTH EYES ×2 (08:14→20:47)
[2025-03-21] MEDS: AMIODARONE 200 MG TABLET 400 MG GT (08:14)
[2025-03-21] MEDS: INSULIN REGULAR, HUMAN 100 UNIT/ML VIAL SC (17:31)
[2025-03-21] MEDS: ATORVASTATIN 40 MG TABLET GT (20:46)
[2025-03-21] MEDS: MELATONIN 3 MG TABLET GT (20:47)
[2025-03-21] MEDS: ACETAMINOPHEN 325 MG TABLET 650 MG GT (20:48)
[2025-03-22] VITALS (11 sets, daily range): BP systolic 104–131; BP diastolic 61–82; PULSE 53–114; RESP 18–36; TEMP 36.6–39.3; O2SAT 92–100
[2025-03-22] MEDS: IPRATROPIUM/ALBUTEROL 3 ML AMPUL.NEB INH ×4 (00:23→18:33)
[2025-03-22] MEDS: LEVOTHYROXINE 200 MCG TABLET GT (05:35)
[2025-03-22] MEDS: INSULIN REGULAR, HUMAN 100 UNIT/ML VIAL SC ×2 (05:35→17:10)
[2025-03-22] MEDS: SENNOSIDES 8.6 MG TABLET GT ×2 (09:04→20:54)
[2025-03-22] MEDS: APIXABAN 5 MG TABLET GT ×2 (09:05→20:53)
[2025-03-22] MEDS: CLOPIDOGREL BISULFATE 75 MG TABLET GT (09:05)
[2025-03-22] MEDS: AMIODARONE 200 MG TABLET 400 MG GT (09:05)
[2025-03-22] MEDS: CHOLECALCIFEROL (VITAMIN D3) 25 MCG TABLET GT (09:05)
[2025-03-22] MEDS: DEX/HYPRO/GLY ARTIFICAL TEARS 225 DROP/15 ML BTL BOTH EYES ×2 (09:05→20:54)
[2025-03-22] MEDS: LACTULOSE 10 GM/15 ML SOLUTION 20 GM GT ×2 (09:05→20:54)
[2025-03-22] MEDS: ACETAMINOPHEN 325 MG TABLET 650 MG GT ×2 (14:55→20:56)
[2025-03-22] MEDS: ATORVASTATIN 40 MG TABLET GT (20:54)
[2025-03-22] MEDS: MELATONIN 3 MG TABLET GT (20:57)
[2025-03-23] VITALS (8 sets, daily range): BP systolic 106–139; BP diastolic 52–69; PULSE 50–77; RESP 17–30; TEMP 36.2–36.6; O2SAT 97–100
[2025-03-23] MEDS: IPRATROPIUM/ALBUTEROL 3 ML AMPUL.NEB INH ×4 (00:38→18:44)
[2025-03-23] MEDS: INSULIN REGULAR, HUMAN 100 UNIT/ML VIAL SC ×2 (05:16→17:43)
[2025-03-23] MEDS: LEVOTHYROXINE 200 MCG TABLET GT (05:17)
[2025-03-23] MEDS: AMIODARONE 200 MG TABLET 400 MG GT (09:03)
[2025-03-23] MEDS: CHOLECALCIFEROL (VITAMIN D3) 25 MCG TABLET GT (09:04)
[2025-03-23] MEDS: APIXABAN 5 MG TABLET GT ×2 (09:04→20:39)
[2025-03-23] MEDS: CLOPIDOGREL BISULFATE 75 MG TABLET GT (09:05)
[2025-03-23] MEDS: DEX/HYPRO/GLY ARTIFICAL TEARS 225 DROP/15 ML BTL BOTH EYES ×2 (09:06→20:40)
[2025-03-23] MEDS: LACTULOSE 10 GM/15 ML SOLUTION 20 GM GT ×2 (09:06→20:40)
[2025-03-23] MEDS: SENNOSIDES 8.6 MG TABLET GT ×2 (09:07→20:41)
--- NOTE | 2025-03-23 10:51 | PC.SS ---
Resident seen by pharmacy messenger for routine podiatry care. Resident tolerated treatment well with no new orders or recommendations, Resident will continue current care.
[2025-03-23] MEDS: ACETAMINOPHEN 325 MG TABLET 650 MG GT ×2 (11:10→20:41)
--- NOTE | 2025-03-23 12:20 | PD.SAPROG ---
Progress Note - SubAcute DIAGNOSIS (1) Acute arterial ischemic stroke, vertebrobasilar, brainstem: Status: Chronic Qualifiers: Laterality: left Qualified Code(s): I63.212 - Cerebral infarction due to unspecified occlusion or stenosis of left vertebral artery; I63.22 - Cerebral infarction due to unspecified occlusion or stenosis of basilar artery (2) Seizures, generalized convulsive: Status: Chronic (3) Chronic respiratory failure: Status: Chronic Qualifiers: Respiratory failure complication: unspecified whether with hypoxia or hypercapnia Qualified Code(s): J96.10 - Chronic respiratory failure, unspecified whether with hypoxia or hypercapnia (4) Altered glucose metabolism due to diabetes: Status: Chronic (5) Encephalopathy: Status: Chronic (6) Decubital ulcer: Status: Chronic (7) G tube feedings: Status: Chronic (8) Tracheostomy in place: Status: Chronic SUBJECTIVE Fever:: none Shortness of Breath:: none Pain:: none OBJECTIVE Most recent vital signs: Last Vital Signs Temp 97.3 F 03/27/25 06:00 Pulse 67 03/27/25 08:35 Resp 18 03/27/25 06:26 BP 110/66 03/27/25 08:35 Pulse Ox 98 03/27/25 06:26 O2 Del Method Blow-by 03/26/25 13:30 O2 Flow Rate 8 03/27/25 06:26 FiO2 30 03/27/25 06:26 Speech:: mouths words (sometimes) Answers questions:: sometimes (mostly by gestures) Respiratory:: lungs clear Cardiovascular: RRR Abdomen: soft Tracheostomy:: to blow by Feeding per:: G tube ASSESSMENT & PLAN Assessment: Pt seems to be fairly stable with all above diagnosis and with limited /guarded prognosis for recovery to independent living and needs all support. Family supportive Denies any pain. VSS 11-11-24 Met with family in pt's room and updated them as well as answered all questions. Reiterated limited prognosis for independent living. Neurology input on prognostic outlook and medication review followed. Repeat CT head ordered by neurologist was done and results discussed with the Neurologist who confirmed stable changes and recommended no change on medicine. This was updated with the family the No new issues , Talked with family at bedside and updated them. VSS. Started on Melatonin q hs 3 mgs prn to facilitate sleep. Pt had fever due to E. faecalis UTI and started on Vancomycin 1gm IVPB q 12 hourly on 12-28-24 Responded well and cleared. Family very actitvely participating in patient care Some constipation concerns, was given Lactulose . Being monitored but pt did not respond to treatment and was sent to the ER were he finally did poop and stabilized and returned to the [facility] at night doing well on the above treatment protocol. Now requiring Lactulose and occasional suppository for Constipation. Tolerating feeding. VSS. No new issues. Bowel movements somewhat improved on increasing Lactulose Plan: Full support medical/nutritional and emotional towards maintaining some quality of life
[2025-03-23] MEDS: ATORVASTATIN 40 MG TABLET GT (20:40)
[2025-03-23] MEDS: MELATONIN 3 MG TABLET GT (20:41)
--- NOTE | 2025-03-23 21:25 | PC.NURSE ---
Resident at bedside, called nurse to check trach because she states that his voice became louder and resident complained of throat pain. Upon assessment, noted trach was out. Resident alert, no distress noted. Narci RT at bedside inserted new trach tube x1 attempt, tolerated well. 02 sat 97% after insertion. BP 116/67 HR 68, RR 19, Temp 98.6.
[2025-03-24] VITALS (11 sets, daily range): BP systolic 100–131; BP diastolic 54–70; PULSE 57–89; RESP 18–24; TEMP 36.6–37.1; O2SAT 97–100
[2025-03-24] MEDS: IPRATROPIUM/ALBUTEROL 3 ML AMPUL.NEB INH ×4 (00:29→18:56)
[2025-03-24] MEDS: LEVOTHYROXINE 200 MCG TABLET GT (05:06)
[2025-03-24] MEDS: INSULIN REGULAR, HUMAN 100 UNIT/ML VIAL SC ×2 (05:06→17:21)
[2025-03-24] MEDS: AMIODARONE 200 MG TABLET 400 MG GT (09:05)
[2025-03-24] MEDS: APIXABAN 5 MG TABLET GT ×2 (09:06→21:05)
[2025-03-24] MEDS: CHOLECALCIFEROL (VITAMIN D3) 25 MCG TABLET GT (09:06)
[2025-03-24] MEDS: DEX/HYPRO/GLY ARTIFICAL TEARS 225 DROP/15 ML BTL BOTH EYES ×2 (09:07→21:05)
[2025-03-24] MEDS: CLOPIDOGREL BISULFATE 75 MG TABLET GT (09:07)
[2025-03-24] MEDS: LACTULOSE 10 GM/15 ML SOLUTION 20 GM GT ×2 (09:08→21:05)
[2025-03-24] MEDS: SENNOSIDES 8.6 MG TABLET GT ×2 (10:27→21:05)
--- NOTE | 2025-03-24 16:27 | PC.NURSE ---
. order PMV trial to the resident.
[2025-03-24] MEDS: MELATONIN 3 MG TABLET GT (21:05)
[2025-03-24] MEDS: ATORVASTATIN 40 MG TABLET GT (21:05)
[2025-03-25] VITALS (8 sets, daily range): BP systolic 104–137; BP diastolic 60–69; PULSE 64–83; RESP 18–20; TEMP 36.3–36.7; O2SAT 95–100
[2025-03-25] MEDS: IPRATROPIUM/ALBUTEROL 3 ML AMPUL.NEB INH ×4 (00:11→16:47)
[2025-03-25] MEDS: LEVOTHYROXINE 200 MCG TABLET GT (05:16)
[2025-03-25] MEDS: AMIODARONE 200 MG TABLET 400 MG GT (08:45)
[2025-03-25] MEDS: CLOPIDOGREL BISULFATE 75 MG TABLET GT (08:46)
[2025-03-25] MEDS: APIXABAN 5 MG TABLET GT ×2 (08:46→21:16)
[2025-03-25] MEDS: CHOLECALCIFEROL (VITAMIN D3) 25 MCG TABLET GT (08:46)
[2025-03-25] MEDS: DEX/HYPRO/GLY ARTIFICAL TEARS 225 DROP/15 ML BTL BOTH EYES ×2 (08:46→21:17)
[2025-03-25] MEDS: LACTULOSE 10 GM/15 ML SOLUTION 20 GM GT ×2 (08:46→21:17)
[2025-03-25] MEDS: SENNOSIDES 8.6 MG TABLET GT ×2 (08:47→21:19)
[2025-03-25] MEDS: ATORVASTATIN 40 MG TABLET GT (21:17)
[2025-03-25] MEDS: MELATONIN 3 MG TABLET GT (21:19)
[2025-03-25] MEDS: ACETAMINOPHEN 325 MG TABLET 650 MG GT (21:19)
[2025-03-26] VITALS (11 sets, daily range): BP systolic 101–130; BP diastolic 63–73; PULSE 58–88; RESP 17–24; TEMP 36–37.2; O2SAT 92–99
[2025-03-26] MEDS: IPRATROPIUM/ALBUTEROL 3 ML AMPUL.NEB INH ×4 (01:07→19:29)
[2025-03-26] MEDS: LEVOTHYROXINE 200 MCG TABLET GT (05:37)
[2025-03-26] MEDS: MAGNESIUM HYDROXIDE 30 ML ORAL SUSP ML GT (08:31)
[2025-03-26] MEDS: APIXABAN 5 MG TABLET GT ×2 (08:32→20:25)
[2025-03-26] MEDS: DEX/HYPRO/GLY ARTIFICAL TEARS 225 DROP/15 ML BTL BOTH EYES ×2 (08:32→20:26)
[2025-03-26] MEDS: SENNOSIDES 8.6 MG TABLET GT ×2 (08:32→20:27)
[2025-03-26] MEDS: CLOPIDOGREL BISULFATE 75 MG TABLET GT (08:32)
[2025-03-26] MEDS: LACTULOSE 10 GM/15 ML SOLUTION 20 GM GT ×2 (08:32→20:27)
[2025-03-26] MEDS: AMIODARONE 200 MG TABLET 400 MG GT (08:32)
[2025-03-26] MEDS: CHOLECALCIFEROL (VITAMIN D3) 25 MCG TABLET GT (08:32)
[2025-03-26] MEDS: ACETAMINOPHEN 325 MG TABLET 650 MG GT ×2 (13:35→20:28)
[2025-03-26] MEDS: ATORVASTATIN 40 MG TABLET GT (20:26)
[2025-03-26] MEDS: MELATONIN 3 MG TABLET GT (20:28)
[2025-03-26] MEDS: BISACODYL 10 MG SUPP.RECT PR (22:30)
[2025-03-27] VITALS: BP 122/72; PULSE 74; RESP 20; TEMP 36.8
[2025-03-27 00:22] VITALS: PULSE 77; PULSE 87; RESP 17; O2SAT 96; O2SAT 99
[2025-03-27] MEDS: IPRATROPIUM/ALBUTEROL 3 ML AMPUL.NEB INH ×3 (00:22→12:17)
[2025-03-27] MEDS: LEVOTHYROXINE 200 MCG TABLET GT (05:26)
[2025-03-27] MEDS: INSULIN REGULAR, HUMAN 100 UNIT/ML VIAL SC (05:27)
[2025-03-27 06:00] VITALS: BP 127/74; PULSE 66; RESP 18; TEMP 36.3; O2SAT 98
[2025-03-27 06:26] VITALS: PULSE 80; PULSE 89; RESP 18; O2SAT 98
[2025-03-27 08:35] VITALS: BP 110/66; PULSE 67
[2025-03-27] MEDS: AMIODARONE 200 MG TABLET 400 MG GT (08:35)
[2025-03-27] MEDS: CHOLECALCIFEROL (VITAMIN D3) 25 MCG TABLET GT (08:36)
[2025-03-27] MEDS: APIXABAN 5 MG TABLET GT ×2 (08:36→20:25)
[2025-03-27] MEDS: CLOPIDOGREL BISULFATE 75 MG TABLET GT (08:36)
[2025-03-27] MEDS: LACTULOSE 10 GM/15 ML SOLUTION 20 GM GT ×2 (08:37→20:28)
[2025-03-27] MEDS: SENNOSIDES 8.6 MG TABLET GT ×2 (08:37→20:28)
[2025-03-27] MEDS: DEX/HYPRO/GLY ARTIFICAL TEARS 225 DROP/15 ML BTL BOTH EYES ×2 (08:37→20:28)
[2025-03-27] MEDS: ATORVASTATIN 40 MG TABLET GT (20:25)
[2025-03-28] VITALS (7 sets, daily range): BP systolic 117–124; BP diastolic 65–73; PULSE 61–78; RESP 18; TEMP 36.3–36.5; O2SAT 98–100
[2025-03-28] MEDS: IPRATROPIUM/ALBUTEROL 3 ML AMPUL.NEB INH ×4 (00:04→18:49)
[2025-03-28] MEDS: INSULIN REGULAR, HUMAN 100 UNIT/ML VIAL SC (05:45)
[2025-03-28] MEDS: LEVOTHYROXINE 200 MCG TABLET GT (05:46)
[2025-03-28] MEDS: AMIODARONE 200 MG TABLET 400 MG GT (09:05)
[2025-03-28] MEDS: CLOPIDOGREL BISULFATE 75 MG TABLET GT (09:06)
[2025-03-28] MEDS: APIXABAN 5 MG TABLET GT ×2 (09:06→20:23)
[2025-03-28] MEDS: LACTULOSE 10 GM/15 ML SOLUTION 20 GM GT ×2 (09:08→20:23)
[2025-03-28] MEDS: DEX/HYPRO/GLY ARTIFICAL TEARS 225 DROP/15 ML BTL BOTH EYES ×2 (09:08→20:23)
[2025-03-28] MEDS: SENNOSIDES 8.6 MG TABLET GT ×2 (09:09→20:24)
[2025-03-28] MEDS: CHOLECALCIFEROL (VITAMIN D3) 25 MCG TABLET GT (09:09)
[2025-03-28] MEDS: ATORVASTATIN 40 MG TABLET GT (20:23)
[2025-03-28] MEDS: ACETAMINOPHEN 325 MG TABLET 650 MG GT (20:24)
[2025-03-28] MEDS: MELATONIN 3 MG TABLET GT (20:24)
[2025-03-29] VITALS (9 sets, daily range): BP systolic 103–132; BP diastolic 62–80; PULSE 54–74; RESP 16–20; TEMP 36.4–36.6; O2SAT 98–100
[2025-03-29] MEDS: IPRATROPIUM/ALBUTEROL 3 ML AMPUL.NEB INH ×4 (01:26→18:37)
[2025-03-29] MEDS: INSULIN REGULAR, HUMAN 100 UNIT/ML VIAL SC ×2 (05:38→17:20)
[2025-03-29] MEDS: LEVOTHYROXINE 200 MCG TABLET GT (05:38)
[2025-03-29] MEDS: LACTULOSE 10 GM/15 ML SOLUTION 20 GM GT ×2 (08:24→20:16)
[2025-03-29] MEDS: APIXABAN 5 MG TABLET GT ×2 (08:24→20:15)
[2025-03-29] MEDS: SENNOSIDES 8.6 MG TABLET GT ×2 (08:24→20:16)
[2025-03-29] MEDS: DEX/HYPRO/GLY ARTIFICAL TEARS 225 DROP/15 ML BTL BOTH EYES ×2 (08:24→20:16)
[2025-03-29] MEDS: AMIODARONE 200 MG TABLET 400 MG GT (08:24)
[2025-03-29] MEDS: CLOPIDOGREL BISULFATE 75 MG TABLET GT (08:24)
[2025-03-29] MEDS: CHOLECALCIFEROL (VITAMIN D3) 25 MCG TABLET GT (08:24)
[2025-03-29] MEDS: ATORVASTATIN 40 MG TABLET GT (20:16)
[2025-03-29] MEDS: MELATONIN 3 MG TABLET GT (20:18)
[2025-03-30] VITALS (9 sets, daily range): BP systolic 108–132; BP diastolic 67–73; PULSE 59–70; RESP 16–20; TEMP 36.2–36.5; O2SAT 95–100
[2025-03-30] MEDS: IPRATROPIUM/ALBUTEROL 3 ML AMPUL.NEB INH ×4 (00:39→18:16)
[2025-03-30] MEDS: LEVOTHYROXINE 200 MCG TABLET GT (05:48)
[2025-03-30] MEDS: AMIODARONE 200 MG TABLET 400 MG GT (08:39)
[2025-03-30] MEDS: CHOLECALCIFEROL (VITAMIN D3) 25 MCG TABLET GT (08:40)
[2025-03-30] MEDS: APIXABAN 5 MG TABLET GT ×2 (08:40→21:39)
[2025-03-30] MEDS: CLOPIDOGREL BISULFATE 75 MG TABLET GT (08:40)
[2025-03-30] MEDS: DEX/HYPRO/GLY ARTIFICAL TEARS 225 DROP/15 ML BTL BOTH EYES ×2 (08:41→21:39)
[2025-03-30] MEDS: LACTULOSE 10 GM/15 ML SOLUTION 20 GM GT ×2 (08:41→21:40)
[2025-03-30] MEDS: SENNOSIDES 8.6 MG TABLET GT ×2 (08:42→21:41)
[2025-03-30] MEDS: ATORVASTATIN 40 MG TABLET GT (21:39)
[2025-03-30] MEDS: ACETAMINOPHEN 325 MG TABLET 650 MG GT (21:41)
[2025-03-30] MEDS: MELATONIN 3 MG TABLET GT (21:41)
[2025-03-31] VITALS (9 sets, daily range): BP systolic 93–125; BP diastolic 57–73; PULSE 42–78; RESP 16–24; TEMP 36–36.6; O2SAT 95–100
[2025-03-31] MEDS: IPRATROPIUM/ALBUTEROL 3 ML AMPUL.NEB INH ×4 (00:46→18:19)
[2025-03-31] MEDS: LEVOTHYROXINE 200 MCG TABLET GT (05:30)
[2025-03-31] MEDS: AMIODARONE 200 MG TABLET 400 MG GT (08:33)
[2025-03-31] MEDS: APIXABAN 5 MG TABLET GT ×2 (08:34→20:49)
[2025-03-31] MEDS: CLOPIDOGREL BISULFATE 75 MG TABLET GT (08:34)
[2025-03-31] MEDS: CHOLECALCIFEROL (VITAMIN D3) 25 MCG TABLET GT (08:34)
[2025-03-31] MEDS: DEX/HYPRO/GLY ARTIFICAL TEARS 225 DROP/15 ML BTL BOTH EYES ×2 (08:35→20:51)
[2025-03-31] MEDS: LACTULOSE 10 GM/15 ML SOLUTION 20 GM GT ×2 (08:35→20:51)
[2025-03-31] MEDS: SENNOSIDES 8.6 MG TABLET GT ×2 (08:36→20:52)
[2025-03-31] MEDS: ACETAMINOPHEN 325 MG TABLET 650 MG GT ×2 (08:40→19:12)
[2025-03-31] MEDS: INSULIN REGULAR, HUMAN 100 UNIT/ML VIAL SC (17:02)
--- NOTE | 2025-03-31 20:46 | ESPR_ITS ---
Progress Note - SubAcute DIAGNOSIS (1) Acute arterial ischemic stroke, vertebrobasilar, brainstem: Status: Chronic Qualifiers: Laterality: left Qualified Code(s): I63.212 - Cerebral infarction due to unspecified occlusion or stenosis of left vertebral artery; I63.22 - Cerebral infarction due to unspecified occlusion or stenosis of basilar artery (2) Seizures, generalized convulsive: Status: Chronic (3) Chronic respiratory failure: Status: Chronic Qualifiers: Respiratory failure complication: unspecified whether with hypoxia or hypercapnia Qualified Code(s): J96.10 - Chronic respiratory failure, unspecified whether with hypoxia or hypercapnia (4) Altered glucose metabolism due to diabetes: Status: Chronic (5) Encephalopathy: Status: Chronic (6) Decubital ulcer: Status: Chronic (7) G tube feedings: Status: Chronic (8) Tracheostomy in place: Status: Chronic SUBJECTIVE Fever:: none Shortness of Breath:: none Pain:: none OBJECTIVE Most recent vital signs: Last Vital Signs Temp 97.7 F 03/31/25 17:15 Pulse 70 03/31/25 18:19 Resp 20 03/31/25 18:19 BP 122/65 03/31/25 17:15 Pulse Ox 100 03/31/25 18:19 O2 Del Method Blow-by 03/31/25 06:00 O2 Flow Rate 6 03/31/25 18:19 FiO2 28 03/31/25 18:19 Speech:: mouths words (sometimes) Answers questions:: sometimes (mostly by gestures) Respiratory:: lungs clear Cardiovascular: RRR Abdomen: soft Tracheostomy:: to blow by Feeding per:: G tube ASSESSMENT & PLAN Assessment: Pt seems to be fairly stable with all above diagnosis and with limited /guarded prognosis for recovery to independent living and needs all support. Family supportive Denies any pain. VSS 11-11-24 Met with family in pt's room and updated them as well as answered all questions. Reiterated limited prognosis for independent living. Neurology input on prognostic outlook and medication review followed. Repeat CT head ordered by neurologist was done and results discussed with the Neurologist who confirmed stable changes and recommended no change on medicine. This was updated with the family the No new issues , Talked with family at bedside and updated them. VSS. Started on Melatonin q hs 3 mgs prn to facilitate sleep. Pt had fever due to E. faecalis UTI and started on Vancomycin 1gm IVPB q 12 hourly on 12-28-24 Responded well and cleared. Family very actitvely participating in patient care Some constipation concerns, was given Lactulose . Being monitored but pt did not respond to treatment and was sent to the ER were he finally did poop and stabilized and returned to the [facility] at night doing well on the above treatment protocol. Now requiring Lactulose and occasional suppository for Constipation. Tolerating feeding. VSS. No new issues. Bowel movements somewhat improved on increasing Lactulose Plan: Full support medical/nutritional and emotional towards maintaining some quality of life
[2025-03-31] MEDS: ATORVASTATIN 40 MG TABLET GT (20:49)
[2025-04-01] VITALS (9 sets, daily range): BP systolic 107–114; BP diastolic 67–73; PULSE 56–78; RESP 17–22; TEMP 36.2–36.5; O2SAT 95–100
[2025-04-01] MEDS: IPRATROPIUM/ALBUTEROL 3 ML AMPUL.NEB INH ×4 (00:36→18:22)
[2025-04-01] MEDS: INSULIN REGULAR, HUMAN 100 UNIT/ML VIAL SC (05:38)
[2025-04-01] MEDS: LEVOTHYROXINE 200 MCG TABLET GT (05:40)
[2025-04-01] MEDS: CHOLECALCIFEROL (VITAMIN D3) 25 MCG TABLET GT (09:14)
[2025-04-01] MEDS: LACTULOSE 10 GM/15 ML SOLUTION 20 GM GT ×2 (09:14→20:41)
[2025-04-01] MEDS: APIXABAN 5 MG TABLET GT ×2 (09:14→20:40)
[2025-04-01] MEDS: AMIODARONE 200 MG TABLET 400 MG GT (09:14)
[2025-04-01] MEDS: CLOPIDOGREL BISULFATE 75 MG TABLET GT (09:14)
[2025-04-01] MEDS: MAGNESIUM HYDROXIDE 30 ML ORAL SUSP ML GT (09:15)
[2025-04-01] MEDS: SENNOSIDES 8.6 MG TABLET GT ×2 (09:15→20:42)
[2025-04-01] MEDS: DEX/HYPRO/GLY ARTIFICAL TEARS 225 DROP/15 ML BTL BOTH EYES ×2 (09:15→20:40)
[2025-04-01] MEDS: ACETAMINOPHEN 325 MG TABLET 650 MG GT (17:29)
--- NOTE | 2025-04-01 20:05 | PC.RT ---
pt was on PMV valve with trach mask 6L 28% tolerating well tx given inline place back on pmv without trach mask at 18:42 to 1915 spo2 92%-98% hr 75 normal RR pt had cough spells during pmv without trach mask place back on the blow by at 19:15, no distress noted pt suctioned small thin cream sputum suctioned remians at bedside nurse fidelia made aware.
[2025-04-01] MEDS: ATORVASTATIN 40 MG TABLET GT (20:40)
[2025-04-01] MEDS: MELATONIN 3 MG TABLET GT (20:42)
[2025-04-02] VITALS (9 sets, daily range): BP systolic 100–123; BP diastolic 61–69; PULSE 56–79; RESP 18–23; TEMP 36.1–36.8; O2SAT 96–100
[2025-04-02] MEDS: IPRATROPIUM/ALBUTEROL 3 ML AMPUL.NEB INH ×4 (00:47→16:50)
[2025-04-02] MEDS: LEVOTHYROXINE 200 MCG TABLET GT (05:28)
[2025-04-02] MEDS: AMIODARONE 200 MG TABLET 400 MG GT (09:21)
[2025-04-02] MEDS: SENNOSIDES 8.6 MG TABLET GT ×2 (09:22→20:49)
[2025-04-02] MEDS: CHOLECALCIFEROL (VITAMIN D3) 25 MCG TABLET GT (09:23)
[2025-04-02] MEDS: APIXABAN 5 MG TABLET GT ×2 (09:23→20:49)
[2025-04-02] MEDS: LACTULOSE 10 GM/15 ML SOLUTION 20 GM GT ×2 (09:23→20:49)
[2025-04-02] MEDS: DEX/HYPRO/GLY ARTIFICAL TEARS 225 DROP/15 ML BTL BOTH EYES ×2 (09:23→20:49)
[2025-04-02] MEDS: CLOPIDOGREL BISULFATE 75 MG TABLET GT (09:23)
[2025-04-02] MEDS: ACETAMINOPHEN 325 MG TABLET 650 MG GT (20:48)
[2025-04-02] MEDS: ATORVASTATIN 40 MG TABLET GT (20:49)
[2025-04-02] MEDS: MELATONIN 3 MG TABLET GT (20:50)
[2025-04-03] VITALS (10 sets, daily range): BP systolic 100–119; BP diastolic 59–72; PULSE 54–85; RESP 16–20; TEMP 36.2–36.9; O2SAT 96–100
[2025-04-03] MEDS: IPRATROPIUM/ALBUTEROL 3 ML AMPUL.NEB INH ×4 (00:45→19:38)
[2025-04-03] MEDS: LEVOTHYROXINE 200 MCG TABLET GT (05:10)
[2025-04-03] MEDS: SENNOSIDES 8.6 MG TABLET GT ×2 (08:20→21:02)
[2025-04-03] MEDS: CLOPIDOGREL BISULFATE 75 MG TABLET GT (08:21)
[2025-04-03] MEDS: APIXABAN 5 MG TABLET GT ×2 (08:21→21:01)
[2025-04-03] MEDS: LACTULOSE 10 GM/15 ML SOLUTION 20 GM GT ×2 (08:21→21:01)
[2025-04-03] MEDS: CHOLECALCIFEROL (VITAMIN D3) 25 MCG TABLET GT (08:21)
[2025-04-03] MEDS: DEX/HYPRO/GLY ARTIFICAL TEARS 225 DROP/15 ML BTL BOTH EYES ×2 (08:21→21:01)
[2025-04-03] MEDS: INSULIN REGULAR, HUMAN 100 UNIT/ML VIAL SC (17:45)
[2025-04-03] MEDS: ACETAMINOPHEN 325 MG TABLET 650 MG GT (21:01)
[2025-04-03] MEDS: ATORVASTATIN 40 MG TABLET GT (21:01)
[2025-04-03] MEDS: MELATONIN 3 MG TABLET GT (21:02)
[2025-04-04] VITALS (9 sets, daily range): BP systolic 106–123; BP diastolic 61–71; PULSE 58–81; RESP 16–22; TEMP 36.1–36.9; O2SAT 95–99
[2025-04-04] MEDS: IPRATROPIUM/ALBUTEROL 3 ML AMPUL.NEB INH ×4 (00:17→18:45)
[2025-04-04] MEDS: LEVOTHYROXINE 200 MCG TABLET GT (05:04)
[2025-04-04] MEDS: AMIODARONE 200 MG TABLET 400 MG GT (08:42)
[2025-04-04] MEDS: APIXABAN 5 MG TABLET GT ×2 (08:43→20:04)
[2025-04-04] MEDS: DEX/HYPRO/GLY ARTIFICAL TEARS 225 DROP/15 ML BTL BOTH EYES ×2 (08:44→20:04)
[2025-04-04] MEDS: CHOLECALCIFEROL (VITAMIN D3) 25 MCG TABLET GT (08:44)
[2025-04-04] MEDS: CLOPIDOGREL BISULFATE 75 MG TABLET GT (08:44)
[2025-04-04] MEDS: LACTULOSE 10 GM/15 ML SOLUTION 20 GM GT ×2 (08:45→20:04)
[2025-04-04] MEDS: SENNOSIDES 8.6 MG TABLET GT ×2 (08:46→20:04)
--- NOTE | 2025-04-04 14:04 | PD.SAPROG ---
Progress Note - SubAcute DIAGNOSIS (1) Acute arterial ischemic stroke, vertebrobasilar, brainstem: Status: Chronic Qualifiers: Laterality: left Qualified Code(s): I63.212 - Cerebral infarction due to unspecified occlusion or stenosis of left vertebral artery; I63.22 - Cerebral infarction due to unspecified occlusion or stenosis of basilar artery (2) Seizures, generalized convulsive: Status: Chronic (3) Chronic respiratory failure: Status: Chronic Qualifiers: Respiratory failure complication: unspecified whether with hypoxia or hypercapnia Qualified Code(s): J96.10 - Chronic respiratory failure, unspecified whether with hypoxia or hypercapnia (4) Altered glucose metabolism due to diabetes: Status: Chronic (5) Encephalopathy: Status: Chronic (6) Decubital ulcer: Status: Chronic (7) G tube feedings: Status: Chronic (8) Tracheostomy in place: Status: Chronic SUBJECTIVE Fever:: none Shortness of Breath:: none Pain:: none OBJECTIVE Most recent vital signs: Last Vital Signs Temp 97.0 F 04/04/25 06:00 Pulse 62 04/04/25 12:27 Resp 18 04/04/25 12:27 BP 119/71 04/04/25 08:42 Pulse Ox 98 04/04/25 12:27 O2 Del Method Blow-by 04/04/25 06:00 O2 Flow Rate 6 04/04/25 12:27 FiO2 28 04/04/25 12:27 Speech:: mouths words (sometimes) Answers questions:: sometimes (mostly by gestures) Respiratory:: lungs clear Cardiovascular: RRR Abdomen: soft Tracheostomy:: to blow by Feeding per:: G tube ASSESSMENT & PLAN Assessment: Pt seems to be fairly stable with all above diagnosis and with limited /guarded prognosis for recovery to independent living and needs all support. Family supportive Denies any pain. VSS 11-11-24 Met with family in pt's room and updated them as well as answered all questions. Reiterated limited prognosis for independent living. Neurology input on prognostic outlook and medication review followed. Repeat CT head ordered by neurologist was done and results discussed with the Neurologist who confirmed stable changes and recommended no change on medicine. This was updated with the family the No new issues , Talked with family at bedside and updated them. VSS. Started on Melatonin q hs 3 mgs prn to facilitate sleep. Pt had fever due to E. faecalis UTI and started on Vancomycin 1gm IVPB q 12 hourly on 12-28-24 Responded well and cleared. Family very actitvely participating in patient care Some constipation concerns, was given Lactulose . Being monitored but pt did not respond to treatment and was sent to the ER were he finally did poop and stabilized and returned to the [facility] at night doing well on the above treatment protocol. Now requiring Lactulose and occasional suppository for Constipation. Tolerating feeding. VSS. No new issues. Bowel movements somewhat improved on increasing Lactulose . Stable status Plan: Full support medical/nutritional and emotional towards maintaining some quality of life
[2025-04-04] MEDS: ACETAMINOPHEN 325 MG TABLET 650 MG GT (20:03)
[2025-04-04] MEDS: MELATONIN 3 MG TABLET GT (20:04)
[2025-04-04] MEDS: ATORVASTATIN 40 MG TABLET GT (20:04)
[2025-04-05] VITALS (9 sets, daily range): BP systolic 102–123; BP diastolic 60–74; PULSE 62–83; RESP 18–21; TEMP 36.4–36.8; O2SAT 94–100
[2025-04-05] MEDS: IPRATROPIUM/ALBUTEROL 3 ML AMPUL.NEB INH ×4 (01:05→19:35)
[2025-04-05] MEDS: LEVOTHYROXINE 200 MCG TABLET GT (05:12)
[2025-04-05] MEDS: INSULIN REGULAR, HUMAN 100 UNIT/ML VIAL SC ×2 (05:13→17:13)
[2025-04-05] MEDS: AMIODARONE 200 MG TABLET 400 MG GT (08:32)
[2025-04-05] MEDS: APIXABAN 5 MG TABLET GT ×2 (08:32→20:53)
[2025-04-05] MEDS: DEX/HYPRO/GLY ARTIFICAL TEARS 225 DROP/15 ML BTL BOTH EYES ×2 (08:33→20:55)
[2025-04-05] MEDS: CLOPIDOGREL BISULFATE 75 MG TABLET GT (08:33)
[2025-04-05] MEDS: LACTULOSE 10 GM/15 ML SOLUTION 20 GM GT ×2 (08:33→20:55)
[2025-04-05] MEDS: CHOLECALCIFEROL (VITAMIN D3) 25 MCG TABLET GT (08:33)
[2025-04-05] MEDS: SENNOSIDES 8.6 MG TABLET GT ×2 (08:34→20:58)
[2025-04-05] MEDS: ACETAMINOPHEN 325 MG TABLET 650 MG GT ×2 (08:35→21:00)
[2025-04-05] MEDS: ATORVASTATIN 40 MG TABLET GT (20:53)
[2025-04-05] MEDS: MELATONIN 3 MG TABLET GT (21:00)
[2025-04-06] VITALS (8 sets, daily range): BP systolic 105–126; BP diastolic 58–74; PULSE 51–78; RESP 16–18; TEMP 36.4–36.8; O2SAT 95–99
[2025-04-06] MEDS: IPRATROPIUM/ALBUTEROL 3 ML AMPUL.NEB INH ×4 (00:55→18:49)
[2025-04-06] MEDS: LEVOTHYROXINE 200 MCG TABLET GT (05:18)
[2025-04-06] MEDS: AMIODARONE 200 MG TABLET 400 MG GT (08:47)
[2025-04-06] MEDS: SENNOSIDES 8.6 MG TABLET GT ×2 (08:47→21:07)
[2025-04-06] MEDS: CHOLECALCIFEROL (VITAMIN D3) 25 MCG TABLET GT (08:47)
[2025-04-06] MEDS: LACTULOSE 10 GM/15 ML SOLUTION 20 GM GT ×2 (08:47→21:07)
[2025-04-06] MEDS: APIXABAN 5 MG TABLET GT ×2 (08:47→21:07)
[2025-04-06] MEDS: CLOPIDOGREL BISULFATE 75 MG TABLET GT (08:47)
[2025-04-06] MEDS: DEX/HYPRO/GLY ARTIFICAL TEARS 225 DROP/15 ML BTL BOTH EYES ×2 (08:47→21:07)
[2025-04-06] MEDS: ATORVASTATIN 40 MG TABLET GT (21:07)
[2025-04-06] MEDS: MAGNESIUM HYDROXIDE 30 ML ORAL SUSP ML GT (21:08)
[2025-04-07] VITALS (7 sets, daily range): BP systolic 115–134; BP diastolic 65–75; PULSE 54–76; RESP 18–20; TEMP 36.4–36.6; O2SAT 96–99
[2025-04-07] MEDS: IPRATROPIUM/ALBUTEROL 3 ML AMPUL.NEB INH ×4 (00:30→18:51)
[2025-04-07] MEDS: LEVOTHYROXINE 200 MCG TABLET GT (05:14)
[2025-04-07] MEDS: INSULIN REGULAR, HUMAN 100 UNIT/ML VIAL SC ×2 (05:40→17:01)
[2025-04-07 07:25] LABS: Basophils # (Auto) 0.1 Thou/mm3 (0.0-0.2); Basophils % (Auto) 1 % (0-2.5); Eosinophils # (Auto) 0.1 Thou/mm3 (0.0-0.5); Eosinophils % (Auto) 1 % (0-10); Hematocrit 28.4 % (41.0-53.0); Hemoglobin 9.1 g/dL (13.5-16.0); Immature Granulocytes Auto 0.03 Thou/mm3 (0.00-0.00); Lymphocytes # (Auto) 1.4 Thou/mm3 (1.0-4.8); Lymphocytes % (Auto) 14 % (10-50); Mean Corpuscular HGB Conc 32.0 g/dl (31.0-37.0); Mean Corpuscular Hemoglobin 31.2 pg (25.0-35.0); Mean Corpuscular Volume 97 fL (80-100); Monocytes # (Auto) 0.7 Thou/mm3 (0.0-0.8); Monocytes % (Auto) 7 % (0-12); Neutrophils # (Auto) 7.3 Thou/mm3 (1.8-7.7); Neutrophils % (Auto) 77 % (37-80); Nucleated Red Blood Cell # 0.00 Thou/mm3 (0.00-0.00); Nucleated Red Blood Cell % 0 /100 WBC (0); Platelet Count 324 Thou/mm3 (140-440); RDW Standard Deviation 54.4 fL (35.1-43.9); Red Blood Count 2.92 Miln/mm3 (4.50-5.90); White Blood Count 9.5 Thou/mm3 (3.8-10.6)
[2025-04-07 07:52] LABS: Albumin, Serum 3.2 gm/dL (3.4-4.8); Anion Gap 6 (7-16); BUN/Creatinine Ratio 11 Ratio (12-20); Blood Urea Nitrogen 11 mg/dL (9-23); Calcium 8.3 mg/dL (8.3-10.6); Calcium (Corrected) 8.9 mg/dL (8.5-10.1); Carbon Dioxide 29.5 mMol/L (20.0-31.0); Chloride 106 mMol/L (98-107); Creatinine (Component) 1.0 mg/dL (0.6-1.3); Estimated Creatinine Clearance 80.6 mL/min (>60); Glucose 169 mg/dL (74-106); Glucose,Fasting 169 mg/dL (74-106); Osmolality,Calculated 284 (275-295); Phosphorous 3.3 mg/dL (2.4-5.1); Potassium 4.0 mMol/L (3.4-5.1); Sodium 141 mMol/L (136-145); Thyroid Stimulating Hormone 1.42 uIU/mL (0.55-4.78); eGFR > 60 See Note
[2025-04-07] MEDS: APIXABAN 5 MG TABLET GT ×2 (09:23→21:30)
[2025-04-07] MEDS: AMIODARONE 200 MG TABLET 400 MG GT (09:23)
[2025-04-07] MEDS: DEX/HYPRO/GLY ARTIFICAL TEARS 225 DROP/15 ML BTL BOTH EYES ×2 (09:24→21:31)
[2025-04-07] MEDS: CHOLECALCIFEROL (VITAMIN D3) 25 MCG TABLET GT (09:24)
[2025-04-07] MEDS: LACTULOSE 10 GM/15 ML SOLUTION 20 GM GT ×2 (09:24→21:31)
[2025-04-07] MEDS: CLOPIDOGREL BISULFATE 75 MG TABLET GT (09:24)
[2025-04-07] MEDS: SENNOSIDES 8.6 MG TABLET GT ×2 (09:25→21:32)
[2025-04-07] MEDS: BISACODYL 10 MG SUPP.RECT PR (10:17)
--- NOTE | 2025-04-07 16:59 | PC.NURSE ---
Resident on CBC, Renal panel and TSH monthly, DR East reviewed results with order received to do the labs every 2 months instead
[2025-04-07] MEDS: ATORVASTATIN 40 MG TABLET GT (21:31)
[2025-04-07] MEDS: ACETAMINOPHEN 325 MG TABLET 650 MG GT (21:33)
[2025-04-07] MEDS: MELATONIN 3 MG TABLET GT (21:33)
[2025-04-08] VITALS (9 sets, daily range): BP systolic 101–128; BP diastolic 61–78; PULSE 56–85; RESP 18–22; TEMP 36.5–37.2; O2SAT 96–99
[2025-04-08] MEDS: IPRATROPIUM/ALBUTEROL 3 ML AMPUL.NEB INH ×2 (00:33→06:48)
[2025-04-08] MEDS: INSULIN REGULAR, HUMAN 100 UNIT/ML VIAL SC (05:55)
[2025-04-08] MEDS: LEVOTHYROXINE 200 MCG TABLET GT (05:56)
[2025-04-08] MEDS: AMIODARONE 200 MG TABLET 400 MG GT (09:41)
[2025-04-08] MEDS: CLOPIDOGREL BISULFATE 75 MG TABLET GT (09:42)
[2025-04-08] MEDS: DEX/HYPRO/GLY ARTIFICAL TEARS 225 DROP/15 ML BTL BOTH EYES ×2 (09:42→20:25)
[2025-04-08] MEDS: LACTULOSE 10 GM/15 ML SOLUTION 20 GM GT ×2 (09:42→20:25)
[2025-04-08] MEDS: APIXABAN 5 MG TABLET GT ×2 (09:42→20:24)
[2025-04-08] MEDS: CHOLECALCIFEROL (VITAMIN D3) 25 MCG TABLET GT (09:42)
[2025-04-08] MEDS: SENNOSIDES 8.6 MG TABLET GT ×2 (09:43→20:25)
[2025-04-08] MEDS: ACETAMINOPHEN 325 MG TABLET 650 MG GT (20:25)
[2025-04-08] MEDS: ATORVASTATIN 40 MG TABLET GT (20:25)
[2025-04-08] MEDS: MELATONIN 3 MG TABLET GT (20:26)
[2025-04-09] VITALS (10 sets, daily range): BP systolic 107–115; BP diastolic 63–78; PULSE 28–88; RESP 16–20; TEMP 36.6–37.2; O2SAT 97–99
[2025-04-09] MEDS: IPRATROPIUM/ALBUTEROL 3 ML AMPUL.NEB INH ×4 (01:09→19:54)
[2025-04-09] MEDS: LEVOTHYROXINE 200 MCG TABLET GT (05:24)
[2025-04-09] MEDS: AMIODARONE 200 MG TABLET 400 MG GT (09:03)
[2025-04-09] MEDS: CHOLECALCIFEROL (VITAMIN D3) 25 MCG TABLET GT (09:04)
[2025-04-09] MEDS: CLOPIDOGREL BISULFATE 75 MG TABLET GT (09:04)
[2025-04-09] MEDS: APIXABAN 5 MG TABLET GT ×2 (09:04→20:32)
[2025-04-09] MEDS: DEX/HYPRO/GLY ARTIFICAL TEARS 225 DROP/15 ML BTL BOTH EYES ×2 (09:04→20:32)
[2025-04-09] MEDS: SENNOSIDES 8.6 MG TABLET GT ×2 (09:05→20:32)
[2025-04-09] MEDS: LACTULOSE 10 GM/15 ML SOLUTION 20 GM GT ×2 (09:05→20:32)
[2025-04-09] MEDS: INSULIN REGULAR, HUMAN 100 UNIT/ML VIAL SC (17:35)
[2025-04-09] MEDS: ATORVASTATIN 40 MG TABLET GT (20:32)
[2025-04-09] MEDS: ACETAMINOPHEN 325 MG TABLET 650 MG GT (20:33)
[2025-04-09] MEDS: MELATONIN 3 MG TABLET GT (20:33)
--- NOTE | 2025-04-09 22:03 | PD.SAPROG ---
Progress Note - SubAcute DIAGNOSIS (1) Acute arterial ischemic stroke, vertebrobasilar, brainstem: Status: Chronic Qualifiers: Laterality: left Qualified Code(s): I63.212 - Cerebral infarction due to unspecified occlusion or stenosis of left vertebral artery; I63.22 - Cerebral infarction due to unspecified occlusion or stenosis of basilar artery (2) Seizures, generalized convulsive: Status: Chronic (3) Chronic respiratory failure: Status: Chronic Qualifiers: Respiratory failure complication: unspecified whether with hypoxia or hypercapnia Qualified Code(s): J96.10 - Chronic respiratory failure, unspecified whether with hypoxia or hypercapnia (4) Altered glucose metabolism due to diabetes: Status: Chronic (5) Encephalopathy: Status: Chronic (6) Decubital ulcer: Status: Chronic (7) G tube feedings: Status: Chronic (8) Tracheostomy in place: Status: Chronic SUBJECTIVE Fever:: none Shortness of Breath:: none Pain:: none OBJECTIVE Most recent vital signs: Last Vital Signs Temp 98.9 F 04/09/25 17:37 Pulse 28 L 04/09/25 19:55 Resp 18 04/09/25 19:55 BP 108/64 04/09/25 17:37 Pulse Ox 98 04/09/25 19:55 O2 Del Method Blow-by 04/08/25 17:20 O2 Flow Rate 6 04/09/25 19:55 FiO2 28 04/09/25 19:55 Speech:: mouths words (sometimes) Answers questions:: sometimes (mostly by gestures) Respiratory:: lungs clear Cardiovascular: RRR Abdomen: soft Tracheostomy:: to blow by Feeding per:: G tube ASSESSMENT & PLAN Assessment: Pt seems to be fairly stable with all above diagnosis and with limited /guarded prognosis for recovery to independent living and needs all support. Family supportive Denies any pain. VSS 11-11-24 Met with family in pt's room and updated them as well as answered all questions. Reiterated limited prognosis for independent living. Neurology input on prognostic outlook and medication review followed. Repeat CT head ordered by neurologist was done and results discussed with the Neurologist who confirmed stable changes and recommended no change on medicine. This was updated with the family the No new issues , Talked with family at bedside and updated them. VSS. Started on Melatonin q hs 3 mgs prn to facilitate sleep. Pt had fever due to E. faecalis UTI and started on Vancomycin 1gm IVPB q 12 hourly on 12-28-24 Responded well and cleared. Family very actitvely participating in patient care Some constipation concerns, was given Lactulose . Being monitored but pt did not respond to treatment and was sent to the ER were he finally did poop and stabilized and returned to the [facility] at night doing well on the above treatment protocol. Now requiring Lactulose and occasional suppository for Constipation. Tolerating feeding. VSS. No new issues. Bowel movements somewhat improved on increasing Lactulose . Stable status. Pt not to be left on [employer] [place] speaking valve unattended since he cannote operate it himself. Plan: Full support medical/nutritional and emotional towards maintaining some quality of life
[2025-04-10] VITALS (9 sets, daily range): BP systolic 106–129; BP diastolic 55–71; PULSE 52–71; RESP 18–20; TEMP 36.1–36.4; O2SAT 97–99
[2025-04-10] MEDS: IPRATROPIUM/ALBUTEROL 3 ML AMPUL.NEB INH ×5 (00:04→23:46)
[2025-04-10] MEDS: LEVOTHYROXINE 200 MCG TABLET GT (05:32)
[2025-04-10] MEDS: INSULIN REGULAR, HUMAN 100 UNIT/ML VIAL SC (05:32)
[2025-04-10] MEDS: AMIODARONE 200 MG TABLET 400 MG GT (08:40)
[2025-04-10] MEDS: APIXABAN 5 MG TABLET GT ×2 (08:40→20:35)
[2025-04-10] MEDS: DEX/HYPRO/GLY ARTIFICAL TEARS 225 DROP/15 ML BTL BOTH EYES ×2 (08:42→20:35)
[2025-04-10] MEDS: LACTULOSE 10 GM/15 ML SOLUTION 20 GM GT ×2 (08:42→20:35)
[2025-04-10] MEDS: CLOPIDOGREL BISULFATE 75 MG TABLET GT (08:42)
[2025-04-10] MEDS: CHOLECALCIFEROL (VITAMIN D3) 25 MCG TABLET GT (08:42)
[2025-04-10] MEDS: SENNOSIDES 8.6 MG TABLET GT ×2 (08:42→20:36)
[2025-04-10] MEDS: ACETAMINOPHEN 325 MG TABLET 650 MG GT ×2 (13:50→20:36)
[2025-04-10] MEDS: ATORVASTATIN 40 MG TABLET GT (20:35)
[2025-04-10] MEDS: MELATONIN 3 MG TABLET GT (20:37)
--- NOTE | 2025-04-10 22:13 | PD.SAPROG ---
Progress Note - SubAcute DIAGNOSIS (1) Acute arterial ischemic stroke, vertebrobasilar, brainstem: Status: Chronic Qualifiers: Laterality: left Qualified Code(s): I63.212 - Cerebral infarction due to unspecified occlusion or stenosis of left vertebral artery; I63.22 - Cerebral infarction due to unspecified occlusion or stenosis of basilar artery (2) Seizures, generalized convulsive: Status: Chronic (3) Chronic respiratory failure: Status: Chronic Qualifiers: Respiratory failure complication: unspecified whether with hypoxia or hypercapnia Qualified Code(s): J96.10 - Chronic respiratory failure, unspecified whether with hypoxia or hypercapnia (4) Altered glucose metabolism due to diabetes: Status: Chronic (5) Encephalopathy: Status: Chronic (6) Decubital ulcer: Status: Chronic (7) G tube feedings: Status: Chronic (8) Tracheostomy in place: Status: Chronic SUBJECTIVE Fever:: none Shortness of Breath:: none Pain:: none OBJECTIVE Most recent vital signs: Last Vital Signs Temp 97.6 F 04/10/25 17:55 Pulse 66 04/10/25 18:28 Resp 18 04/10/25 18:28 BP 129/71 04/10/25 17:55 Pulse Ox 99 04/10/25 18:28 O2 Del Method Blow-by 04/10/25 06:00 O2 Flow Rate 6 04/10/25 18:28 FiO2 28 04/10/25 18:28 Speech:: mouths words (sometimes) Answers questions:: sometimes (mostly by gestures) Respiratory:: lungs clear Cardiovascular: RRR Abdomen: soft Tracheostomy:: to blow by Feeding per:: G tube ASSESSMENT & PLAN Assessment: Pt seems to be fairly stable with all above diagnosis and with limited /guarded prognosis for recovery to independent living and needs all support. Family supportive Denies any pain. VSS 11-11-24 Met with family in pt's room and updated them as well as answered all questions. Reiterated limited prognosis for independent living. Neurology input on prognostic outlook and medication review followed. Repeat CT head ordered by neurologist was done and results discussed with the Neurologist who confirmed stable changes and recommended no change on medicine. This was updated with the family the No new issues , Talked with family at bedside and updated them. VSS. Started on Melatonin q hs 3 mgs prn to facilitate sleep. Pt had fever due to E. faecalis UTI and started on Vancomycin 1gm IVPB q 12 hourly on 12-28-24 Responded well and cleared. Family very actitvely participating in patient care Some constipation concerns, was given Lactulose . Being monitored but pt did not respond to treatment and was sent to the ER were he finally did poop and stabilized and returned to the [facility] at night doing well on the above treatment protocol. Now requiring Lactulose and occasional suppository for Constipation. Tolerating feeding. VSS. No new issues. Bowel movements somewhat improved on increasing Lactulose . Stable status. Pt not to be left on [place] speaking valve unattended since he cannote operate it himself. Plan: Full support medical/nutritional and emotional towards maintaining some quality of life
[2025-04-11] VITALS (8 sets, daily range): BP systolic 98–124; BP diastolic 59–69; PULSE 56–72; RESP 16–22; TEMP 36.4–36.8; O2SAT 96–100
[2025-04-11] MEDS: INSULIN REGULAR, HUMAN 100 UNIT/ML VIAL SC (05:25)
[2025-04-11] MEDS: LEVOTHYROXINE 200 MCG TABLET GT (05:26)
[2025-04-11] MEDS: IPRATROPIUM/ALBUTEROL 3 ML AMPUL.NEB INH ×3 (06:31→18:58)
[2025-04-11] MEDS: AMIODARONE 200 MG TABLET 400 MG GT (09:02)
[2025-04-11] MEDS: CLOPIDOGREL BISULFATE 75 MG TABLET GT (09:03)
[2025-04-11] MEDS: LACTULOSE 10 GM/15 ML SOLUTION 20 GM GT ×2 (09:03→20:54)
[2025-04-11] MEDS: DEX/HYPRO/GLY ARTIFICAL TEARS 225 DROP/15 ML BTL BOTH EYES ×2 (09:03→20:52)
[2025-04-11] MEDS: APIXABAN 5 MG TABLET GT ×2 (09:03→20:52)
[2025-04-11] MEDS: CHOLECALCIFEROL (VITAMIN D3) 25 MCG TABLET GT (09:03)
[2025-04-11] MEDS: SENNOSIDES 8.6 MG TABLET GT ×2 (09:04→20:55)
[2025-04-11] MEDS: ATORVASTATIN 40 MG TABLET GT (20:52)
[2025-04-11] MEDS: MELATONIN 3 MG TABLET GT (20:56)
[2025-04-12] VITALS (9 sets, daily range): BP systolic 101–146; BP diastolic 62–76; PULSE 51–73; RESP 16–21; TEMP 35.9–36.9; O2SAT 95–100
[2025-04-12] MEDS: IPRATROPIUM/ALBUTEROL 3 ML AMPUL.NEB INH ×4 (01:11→19:26)
[2025-04-12] MEDS: LEVOTHYROXINE 200 MCG TABLET GT (05:32)
[2025-04-12] MEDS: APIXABAN 5 MG TABLET GT ×2 (09:45→20:32)
[2025-04-12] MEDS: CHOLECALCIFEROL (VITAMIN D3) 25 MCG TABLET GT (09:46)
[2025-04-12] MEDS: DEX/HYPRO/GLY ARTIFICAL TEARS 225 DROP/15 ML BTL BOTH EYES ×2 (09:46→20:32)
[2025-04-12] MEDS: CLOPIDOGREL BISULFATE 75 MG TABLET GT (09:46)
[2025-04-12] MEDS: LACTULOSE 10 GM/15 ML SOLUTION 20 GM GT ×2 (09:47→20:34)
[2025-04-12] MEDS: SENNOSIDES 8.6 MG TABLET GT ×2 (09:48→20:34)
[2025-04-12] MEDS: ATORVASTATIN 40 MG TABLET GT (20:32)
[2025-04-12] MEDS: MELATONIN 3 MG TABLET GT (20:35)
[2025-04-13] VITALS (11 sets, daily range): BP systolic 96–124; BP diastolic 58–70; PULSE 55–77; RESP 16–20; TEMP 36.4–36.8; O2SAT 97–100
[2025-04-13] MEDS: IPRATROPIUM/ALBUTEROL 3 ML AMPUL.NEB INH ×4 (00:35→18:23)
[2025-04-13] MEDS: LEVOTHYROXINE 200 MCG TABLET GT (05:09)
[2025-04-13] MEDS: INSULIN REGULAR, HUMAN 100 UNIT/ML VIAL SC (05:38)
[2025-04-13] MEDS: CHOLECALCIFEROL (VITAMIN D3) 25 MCG TABLET GT (08:33)
[2025-04-13] MEDS: LACTULOSE 10 GM/15 ML SOLUTION 20 GM GT ×2 (08:33→20:57)
[2025-04-13] MEDS: SENNOSIDES 8.6 MG TABLET GT ×2 (08:33→20:58)
[2025-04-13] MEDS: APIXABAN 5 MG TABLET GT ×2 (08:33→20:57)
[2025-04-13] MEDS: CLOPIDOGREL BISULFATE 75 MG TABLET GT (08:33)
[2025-04-13] MEDS: DEX/HYPRO/GLY ARTIFICAL TEARS 225 DROP/15 ML BTL BOTH EYES ×2 (08:33→20:57)
--- NOTE | 2025-04-13 10:01 | PC.SS ---
Resident remains in current care on blow by with trach in place and GT for medication and nutrition. Resident is at bedside daily and is his decision maker, he is unable to make decisions for self due to cognitive impairment. Resident will remain in current care and will continue to have all subacute care needs met by staff. This SSD will continue to make daily contact with resident to monitor for changes in mood and behavior.
[2025-04-13] MEDS: ATORVASTATIN 40 MG TABLET GT (20:57)
[2025-04-13] MEDS: MELATONIN 3 MG TABLET GT (20:58)
[2025-04-13] MEDS: ACETAMINOPHEN 325 MG TABLET 650 MG GT (20:58)
[2025-04-14] VITALS (9 sets, daily range): BP systolic 95–117; BP diastolic 62–68; PULSE 53–74; RESP 16–96; TEMP 36–36.5; O2SAT 95–100; BMI 21.7
[2025-04-14] MEDS: IPRATROPIUM/ALBUTEROL 3 ML AMPUL.NEB INH ×4 (01:28→18:19)
[2025-04-14] MEDS: LEVOTHYROXINE 200 MCG TABLET GT (05:08)
[2025-04-14] MEDS: INSULIN REGULAR, HUMAN 100 UNIT/ML VIAL SC (05:58)
[2025-04-14] MEDS: ACETAMINOPHEN 325 MG TABLET 650 MG GT ×2 (08:45→20:52)
[2025-04-14] MEDS: DEX/HYPRO/GLY ARTIFICAL TEARS 225 DROP/15 ML BTL BOTH EYES ×2 (08:46→20:52)
[2025-04-14] MEDS: CLOPIDOGREL BISULFATE 75 MG TABLET GT (08:46)
[2025-04-14] MEDS: LACTULOSE 10 GM/15 ML SOLUTION 20 GM GT ×2 (08:46→20:52)
[2025-04-14] MEDS: SENNOSIDES 8.6 MG TABLET GT ×2 (08:46→20:52)
[2025-04-14] MEDS: APIXABAN 5 MG TABLET GT ×2 (08:47→20:51)
[2025-04-14] MEDS: CHOLECALCIFEROL (VITAMIN D3) 25 MCG TABLET GT (08:47)
--- NOTE | 2025-04-14 17:08 | PD.SAPROG ---
Progress Note - SubAcute DIAGNOSIS (1) Acute arterial ischemic stroke, vertebrobasilar, brainstem: Status: Chronic Qualifiers: Laterality: left Qualified Code(s): I63.212 - Cerebral infarction due to unspecified occlusion or stenosis of left vertebral artery; I63.22 - Cerebral infarction due to unspecified occlusion or stenosis of basilar artery (2) Seizures, generalized convulsive: Status: Chronic (3) Chronic respiratory failure: Status: Chronic Qualifiers: Respiratory failure complication: unspecified whether with hypoxia or hypercapnia Qualified Code(s): J96.10 - Chronic respiratory failure, unspecified whether with hypoxia or hypercapnia (4) Altered glucose metabolism due to diabetes: Status: Chronic (5) Encephalopathy: Status: Chronic (6) Decubital ulcer: Status: Chronic (7) G tube feedings: Status: Chronic (8) Tracheostomy in place: Status: Chronic SUBJECTIVE Fever:: none Shortness of Breath:: none Pain:: none OBJECTIVE Most recent vital signs: Last Vital Signs Temp 96.8 F 04/14/25 11:52 Pulse 64 04/14/25 12:49 Resp 18 04/14/25 12:49 BP 95/62 04/14/25 11:52 Pulse Ox 99 04/14/25 14:00 O2 Del Method Blow-by 04/14/25 06:00 O2 Flow Rate 6 04/14/25 14:00 FiO2 28 04/14/25 14:00 Speech:: mouths words (sometimes) Answers questions:: sometimes (mostly by gestures) Respiratory:: lungs clear Cardiovascular: RRR Abdomen: soft Tracheostomy:: to blow by Feeding per:: G tube ASSESSMENT & PLAN Assessment: Pt seems to be fairly stable with all above diagnosis and with limited /guarded prognosis for recovery to independent living and needs all support. Family supportive Denies any pain. VSS 11-11-24 Met with family in pt's room and updated them as well as answered all questions. Reiterated limited prognosis for independent living. Neurology input on prognostic outlook and medication review followed. Repeat CT head ordered by neurologist was done and results discussed with the Neurologist who confirmed stable changes and recommended no change on medicine. This was updated with the family the No new issues , Talked with family at bedside and updated them. VSS. Started on Melatonin q hs 3 mgs prn to facilitate sleep. Pt had fever due to E. faecalis UTI and started on Vancomycin 1gm IVPB q 12 hourly on 12-28-24 Responded well and cleared. Family very actitvely participating in patient care Some constipation concerns, was given Lactulose . Being monitored but pt did not respond to treatment and was sent to the ER were he finally did poop and stabilized and returned to the [facility] at night doing well on the above treatment protocol. Now requiring Lactulose and occasional suppository for Constipation. Tolerating feeding. VSS. No new issues. Bowel movements somewhat improved on increasing Lactulose . Stable status. Pt not to be left on [place] speaking valve unattended since he cannote operate it himself. No new issues Plan: Full support medical/nutritional and emotional towards maintaining some quality of life
[2025-04-14] MEDS: MELATONIN 3 MG TABLET GT (20:52)
[2025-04-14] MEDS: ATORVASTATIN 40 MG TABLET GT (20:52)
[2025-04-15] VITALS (9 sets, daily range): BP systolic 114–128; BP diastolic 63–76; PULSE 56–100; RESP 16–99; TEMP 36.1–36.8; O2SAT 97–100
[2025-04-15] MEDS: IPRATROPIUM/ALBUTEROL 3 ML AMPUL.NEB INH ×4 (00:33→18:33)
[2025-04-15] MEDS: LEVOTHYROXINE 200 MCG TABLET GT (05:23)
[2025-04-15] MEDS: INSULIN REGULAR, HUMAN 100 UNIT/ML VIAL SC ×2 (05:32→17:00)
[2025-04-15] MEDS: AMIODARONE 200 MG TABLET 400 MG GT (08:33)
[2025-04-15] MEDS: APIXABAN 5 MG TABLET GT ×2 (08:33→20:45)
[2025-04-15] MEDS: CLOPIDOGREL BISULFATE 75 MG TABLET GT (08:34)
[2025-04-15] MEDS: CHOLECALCIFEROL (VITAMIN D3) 25 MCG TABLET GT (08:34)
[2025-04-15] MEDS: DEX/HYPRO/GLY ARTIFICAL TEARS 225 DROP/15 ML BTL BOTH EYES ×2 (08:34→20:46)
[2025-04-15] MEDS: LACTULOSE 10 GM/15 ML SOLUTION 20 GM GT ×2 (08:35→20:46)
[2025-04-15] MEDS: SENNOSIDES 8.6 MG TABLET GT ×2 (08:36→20:47)
[2025-04-15] MEDS: ATORVASTATIN 40 MG TABLET GT (20:45)
[2025-04-15] MEDS: MELATONIN 3 MG TABLET GT (20:47)
[2025-04-16] VITALS (7 sets, daily range): BP systolic 104–133; BP diastolic 57–80; PULSE 52–73; RESP 18–99; TEMP 36.4–36.6; O2SAT 96–100
[2025-04-16] MEDS: IPRATROPIUM/ALBUTEROL 3 ML AMPUL.NEB INH ×4 (01:10→17:40)
[2025-04-16] MEDS: LEVOTHYROXINE 200 MCG TABLET GT (05:18)
[2025-04-16] MEDS: AMIODARONE 200 MG TABLET 400 MG GT (08:19)
[2025-04-16] MEDS: SENNOSIDES 8.6 MG TABLET GT ×2 (08:20→20:12)
[2025-04-16] MEDS: LACTULOSE 10 GM/15 ML SOLUTION 20 GM GT ×3 (08:20→20:12)
[2025-04-16] MEDS: APIXABAN 5 MG TABLET GT ×2 (08:21→20:11)
[2025-04-16] MEDS: CHOLECALCIFEROL (VITAMIN D3) 25 MCG TABLET GT (08:21)
[2025-04-16] MEDS: DEX/HYPRO/GLY ARTIFICAL TEARS 225 DROP/15 ML BTL BOTH EYES ×2 (08:21→20:11)
[2025-04-16] MEDS: CLOPIDOGREL BISULFATE 75 MG TABLET GT (08:21)
[2025-04-16] MEDS: INSULIN REGULAR, HUMAN 100 UNIT/ML VIAL SC (18:01)
[2025-04-16] MEDS: ATORVASTATIN 40 MG TABLET GT (20:11)
[2025-04-16] MEDS: ACETAMINOPHEN 325 MG TABLET 650 MG GT (20:13)
[2025-04-16] MEDS: MELATONIN 3 MG TABLET GT (20:13)
[2025-04-17] VITALS (10 sets, daily range): BP systolic 92–145; BP diastolic 60–69; PULSE 50–79; RESP 18–98; TEMP 36.2–37.2; O2SAT 98–99
[2025-04-17] MEDS: IPRATROPIUM/ALBUTEROL 3 ML AMPUL.NEB INH ×4 (04:29→18:05)
[2025-04-17] MEDS: INSULIN REGULAR, HUMAN 100 UNIT/ML VIAL SC ×2 (05:42→17:06)
[2025-04-17] MEDS: LEVOTHYROXINE 200 MCG TABLET GT (05:42)
[2025-04-17] MEDS: ACETAMINOPHEN 325 MG TABLET 650 MG GT ×3 (05:50→20:30)
[2025-04-17] MEDS: APIXABAN 5 MG TABLET GT ×2 (08:32→20:30)
[2025-04-17] MEDS: CHOLECALCIFEROL (VITAMIN D3) 25 MCG TABLET GT (08:33)
[2025-04-17] MEDS: CLOPIDOGREL BISULFATE 75 MG TABLET GT (08:33)
[2025-04-17] MEDS: DEX/HYPRO/GLY ARTIFICAL TEARS 225 DROP/15 ML BTL BOTH EYES ×2 (08:33→20:30)
[2025-04-17] MEDS: LACTULOSE 10 GM/15 ML SOLUTION 20 GM GT ×2 (08:34→20:30)
[2025-04-17] MEDS: SENNOSIDES 8.6 MG TABLET GT ×2 (08:36→20:30)
[2025-04-17] MEDS: ATORVASTATIN 40 MG TABLET GT (20:30)
[2025-04-17] MEDS: MELATONIN 3 MG TABLET GT (20:31)
[2025-04-18] VITALS (9 sets, daily range): BP systolic 108–122; BP diastolic 65–68; PULSE 54–78; RESP 17–98; TEMP 36.2–37.1; O2SAT 95–99
[2025-04-18] MEDS: LEVOTHYROXINE 200 MCG TABLET GT (05:35)
[2025-04-18] MEDS: INSULIN REGULAR, HUMAN 100 UNIT/ML VIAL SC ×2 (05:35→17:15)
[2025-04-18] MEDS: IPRATROPIUM/ALBUTEROL 3 ML AMPUL.NEB INH ×4 (06:48→18:38)
[2025-04-18] MEDS: AMIODARONE 200 MG TABLET 400 MG GT (08:38)
[2025-04-18] MEDS: APIXABAN 5 MG TABLET GT ×2 (08:39→20:21)
[2025-04-18] MEDS: CHOLECALCIFEROL (VITAMIN D3) 25 MCG TABLET GT (08:40)
[2025-04-18] MEDS: DEX/HYPRO/GLY ARTIFICAL TEARS 225 DROP/15 ML BTL BOTH EYES ×2 (08:40→20:22)
[2025-04-18] MEDS: CLOPIDOGREL BISULFATE 75 MG TABLET GT (08:40)
[2025-04-18] MEDS: LACTULOSE 10 GM/15 ML SOLUTION 20 GM GT ×2 (08:41→20:21)
[2025-04-18] MEDS: MAGNESIUM HYDROXIDE 30 ML ORAL SUSP ML GT (08:42)
[2025-04-18] MEDS: SENNOSIDES 8.6 MG TABLET GT ×2 (08:42→20:22)
--- NOTE | 2025-04-18 11:13 | PD.SAPROG ---
Progress Note - SubAcute DIAGNOSIS (1) Acute arterial ischemic stroke, vertebrobasilar, brainstem: Status: Chronic Qualifiers: Laterality: left Qualified Code(s): I63.212 - Cerebral infarction due to unspecified occlusion or stenosis of left vertebral artery; I63.22 - Cerebral infarction due to unspecified occlusion or stenosis of basilar artery (2) Seizures, generalized convulsive: Status: Chronic (3) Chronic respiratory failure: Status: Chronic Qualifiers: Respiratory failure complication: unspecified whether with hypoxia or hypercapnia Qualified Code(s): J96.10 - Chronic respiratory failure, unspecified whether with hypoxia or hypercapnia (4) Altered glucose metabolism due to diabetes: Status: Chronic (5) Encephalopathy: Status: Chronic (6) Decubital ulcer: Status: Chronic (7) G tube feedings: Status: Chronic (8) Tracheostomy in place: Status: Chronic SUBJECTIVE Fever:: none Shortness of Breath:: none Pain:: none OBJECTIVE Most recent vital signs: Last Vital Signs Temp 97.1 F 04/18/25 06:00 Pulse 56 L 04/18/25 08:38 Resp 18 04/18/25 06:51 BP 108/67 04/18/25 08:38 Pulse Ox 95 04/18/25 06:51 O2 Del Method Blow-by 04/16/25 06:00 O2 Flow Rate 6 04/18/25 06:51 FiO2 28 04/18/25 06:51 Speech:: mouths words (sometimes) Answers questions:: sometimes (mostly by gestures) Respiratory:: lungs clear Cardiovascular: RRR Abdomen: soft Tracheostomy:: to blow by Feeding per:: G tube ASSESSMENT & PLAN Assessment: Pt seems to be fairly stable with all above diagnosis and with limited /guarded prognosis for recovery to independent living and needs all support. Family supportive Denies any pain. VSS 11-11-24 Met with family in pt's room and updated them as well as answered all questions. Reiterated limited prognosis for independent living. Neurology input on prognostic outlook and medication review followed. Repeat CT head ordered by neurologist was done and results discussed with the Neurologist who confirmed stable changes and recommended no change on medicine. This was updated with the family the No new issues , Talked with family at bedside and updated them. VSS. Started on Melatonin q hs 3 mgs prn to facilitate sleep. Pt had fever due to E. faecalis UTI and started on Vancomycin 1gm IVPB q 12 hourly on 12-28-24 Responded well and cleared. Family very actitvely participating in patient care Some constipation concerns, was given Lactulose . Being monitored but pt did not respond to treatment and was sent to the ER were he finally did poop and stabilized and returned to the [facility] at night doing well on the above treatment protocol. Now requiring Lactulose and occasional suppository for Constipation. Tolerating feeding. VSS. No new issues. Bowel movements somewhat improved on increasing Lactulose . Stable status. Pt not to be left on [place] speaking valve unattended since he cannote operate it himself. No new issues. looks comfortable. Family mostly visits daily and very supportive Plan: Full support medical/nutritional and emotional towards maintaining some quality of life
[2025-04-18] MEDS: ATORVASTATIN 40 MG TABLET GT (20:21)
[2025-04-18] MEDS: MELATONIN 3 MG TABLET GT (20:22)
[2025-04-18] MEDS: ACETAMINOPHEN 325 MG TABLET 650 MG GT (20:23)
[2025-04-18] MEDS: BISACODYL 10 MG SUPP.RECT PR (21:30)
[2025-04-19] VITALS (7 sets, daily range): BP systolic 90–116; BP diastolic 57–70; PULSE 54–75; RESP 16–98; TEMP 36.6–37.2; O2SAT 95–100
[2025-04-19] MEDS: IPRATROPIUM/ALBUTEROL 3 ML AMPUL.NEB INH ×4 (00:09→18:29)
[2025-04-19] MEDS: LEVOTHYROXINE 200 MCG TABLET GT (05:20)
[2025-04-19] MEDS: INSULIN REGULAR, HUMAN 100 UNIT/ML VIAL SC ×2 (05:20→17:27)
[2025-04-19] MEDS: APIXABAN 5 MG TABLET GT ×2 (08:30→20:38)
[2025-04-19] MEDS: AMIODARONE 200 MG TABLET 400 MG GT (08:30)
[2025-04-19] MEDS: LACTULOSE 10 GM/15 ML SOLUTION 20 GM GT ×2 (08:31→20:39)
[2025-04-19] MEDS: DEX/HYPRO/GLY ARTIFICAL TEARS 225 DROP/15 ML BTL BOTH EYES ×2 (08:31→20:39)
[2025-04-19] MEDS: CHOLECALCIFEROL (VITAMIN D3) 25 MCG TABLET GT (08:31)
[2025-04-19] MEDS: CLOPIDOGREL BISULFATE 75 MG TABLET GT (08:31)
[2025-04-19] MEDS: SENNOSIDES 8.6 MG TABLET GT ×2 (08:32→20:39)
[2025-04-19] MEDS: ATORVASTATIN 40 MG TABLET GT (20:39)
[2025-04-19] MEDS: MELATONIN 3 MG TABLET GT (20:45)
[2025-04-20] VITALS (10 sets, daily range): BP systolic 111–121; BP diastolic 58–68; PULSE 53–70; RESP 16–21; TEMP 36.4–36.7; O2SAT 95–100
[2025-04-20] MEDS: IPRATROPIUM/ALBUTEROL 3 ML AMPUL.NEB INH ×4 (00:44→18:33)
--- NOTE | 2025-04-20 03:11 | XR_ITS ---
Examination: Abdomen AP single view Technique: AP portable supine abdomen, single view Exam date and time: April 20, 2025, 0313 hours INDICATIONS: Unknown position feeding tube FINDINGS: Feeding tube and duodenum opacified No abnormal extravasation of contrast material Large amounts of stool throughout the entire colon IMPRESSION: Large amounts of stool throughout the entire colon
--- NOTE | 2025-04-20 04:21 | PRELIM_ITS ---
Radiograph of the abdomen with Gastrograffin (single view). April 20, 2025 0313 hours Clinical history: Gtube placement Comparison: No prior study is available for comparison. Findings: A percutaneous gastrostomy tube is seen with its tip in the distal body of the stomach. There is contrast opacification of the stomach and the duodenum without evidence of contrast leak. The bowel gas pattern is nonobstructive. A moderate amount of fecal material is present in the left colon. Inferior vena cava filter is noted in the mid abdomen. Impression: Percutaneous gastrostomy tube tip in the distal body of the stomach. No evidence of contrast leak. Report Electronically Signed By: Alin Mcneill 04/20/2025 4:20:40 AM [EST]
[2025-04-20] MEDS: LEVOTHYROXINE 200 MCG TABLET GT (06:39)
--- NOTE | 2025-04-20 07:22 | PC.NURSE ---
Addendum entered by Yessenia Dunlap RN 04/20/25 07:33: made aware of event. Original Note: At 0310 CR[employer] DEPARTMENT MANAGER summoned this nurse to resident room, resident PGTube was found right next to patient, resident possibly pulled out PGTube, mittens where place, a 15Fr 10mL lyon was placed by this nurse, order was obtained to get a x-ray with contrast, Tube feeding was hold pending x-ray results, made aware of x-ray results at 0620, new order to start tube feeding was given, resident in room resting, call light within reach, no s/s of distress at this time.
[2025-04-20] MEDS: AMIODARONE 200 MG TABLET 400 MG GT (08:40)
[2025-04-20] MEDS: CLOPIDOGREL BISULFATE 75 MG TABLET GT (08:41)
[2025-04-20] MEDS: LACTULOSE 10 GM/15 ML SOLUTION 20 GM GT ×2 (08:41→21:01)
[2025-04-20] MEDS: APIXABAN 5 MG TABLET GT ×2 (08:41→21:01)
[2025-04-20] MEDS: CHOLECALCIFEROL (VITAMIN D3) 25 MCG TABLET GT (08:41)
[2025-04-20] MEDS: DEX/HYPRO/GLY ARTIFICAL TEARS 225 DROP/15 ML BTL BOTH EYES ×2 (08:41→21:01)
[2025-04-20] MEDS: SENNOSIDES 8.6 MG TABLET GT ×2 (08:42→21:03)
[2025-04-20] MEDS: ACETAMINOPHEN 325 MG TABLET 650 MG GT (11:25)
[2025-04-20] MEDS: INSULIN REGULAR, HUMAN 100 UNIT/ML VIAL SC (17:16)
[2025-04-20] MEDS: ATORVASTATIN 40 MG TABLET GT (21:01)
[2025-04-20] MEDS: MELATONIN 3 MG TABLET GT (21:05)
[2025-04-21] VITALS (8 sets, daily range): BP systolic 117–136; BP diastolic 69–86; PULSE 58–78; RESP 16–24; TEMP 36.1–36.7; O2SAT 94–99
[2025-04-21] MEDS: IPRATROPIUM/ALBUTEROL 3 ML AMPUL.NEB INH ×4 (01:28→19:46)
[2025-04-21] MEDS: LEVOTHYROXINE 200 MCG TABLET GT (05:32)
[2025-04-21] MEDS: APIXABAN 5 MG TABLET GT ×2 (08:23→20:42)
[2025-04-21] MEDS: CHOLECALCIFEROL (VITAMIN D3) 25 MCG TABLET GT (08:23)
[2025-04-21] MEDS: AMIODARONE 200 MG TABLET 400 MG GT (08:23)
[2025-04-21] MEDS: DEX/HYPRO/GLY ARTIFICAL TEARS 225 DROP/15 ML BTL BOTH EYES ×2 (08:24→20:43)
[2025-04-21] MEDS: CLOPIDOGREL BISULFATE 75 MG TABLET GT (08:24)
[2025-04-21] MEDS: LACTULOSE 10 GM/15 ML SOLUTION 20 GM GT ×2 (08:25→20:43)
[2025-04-21] MEDS: SENNOSIDES 8.6 MG TABLET GT ×2 (08:26→20:43)
[2025-04-21] MEDS: MELATONIN 3 MG TABLET GT (20:40)
[2025-04-21] MEDS: ACETAMINOPHEN 325 MG TABLET 650 MG GT (20:40)
[2025-04-21] MEDS: ATORVASTATIN 40 MG TABLET GT (20:42)
[2025-04-22] VITALS (9 sets, daily range): BP systolic 108–150; BP diastolic 62–77; PULSE 55–89; RESP 17–24; TEMP 36.1–36.6; O2SAT 92–99
[2025-04-22] MEDS: IPRATROPIUM/ALBUTEROL 3 ML AMPUL.NEB INH ×4 (01:22→19:12)
[2025-04-22] MEDS: LEVOTHYROXINE 200 MCG TABLET GT (06:22)
[2025-04-22] MEDS: AMIODARONE 200 MG TABLET 400 MG GT (08:40)
[2025-04-22] MEDS: APIXABAN 5 MG TABLET GT ×2 (08:40→20:47)
[2025-04-22] MEDS: CHOLECALCIFEROL (VITAMIN D3) 25 MCG TABLET GT (08:41)
[2025-04-22] MEDS: DEX/HYPRO/GLY ARTIFICAL TEARS 225 DROP/15 ML BTL BOTH EYES ×2 (08:41→21:00)
[2025-04-22] MEDS: LACTULOSE 10 GM/15 ML SOLUTION 20 GM GT ×2 (08:41→20:49)
[2025-04-22] MEDS: SENNOSIDES 8.6 MG TABLET GT ×2 (08:41→20:49)
[2025-04-22] MEDS: CLOPIDOGREL BISULFATE 75 MG TABLET GT (08:41)
--- NOTE | 2025-04-22 14:45 | PC.SS ---
Resident has had legs hanging off the side of the bed, he is restless and refuses to get out of bed and sit in jose daniel chair. Staff fixes his legs and repositioned him. Family is at bedside daily offering support.
[2025-04-22] MEDS: ATORVASTATIN 40 MG TABLET GT (20:48)
[2025-04-22] MEDS: ACETAMINOPHEN 325 MG TABLET 650 MG GT (20:49)
[2025-04-22] MEDS: MELATONIN 3 MG TABLET GT (20:50)
--- NOTE | 2025-04-22 21:38 | PD.SAPROG ---
Progress Note - SubAcute DIAGNOSIS (1) Acute arterial ischemic stroke, vertebrobasilar, brainstem: Status: Chronic Qualifiers: Laterality: left Qualified Code(s): I63.212 - Cerebral infarction due to unspecified occlusion or stenosis of left vertebral artery; I63.22 - Cerebral infarction due to unspecified occlusion or stenosis of basilar artery (2) Seizures, generalized convulsive: Status: Chronic (3) Chronic respiratory failure: Status: Chronic Qualifiers: Respiratory failure complication: unspecified whether with hypoxia or hypercapnia Qualified Code(s): J96.10 - Chronic respiratory failure, unspecified whether with hypoxia or hypercapnia (4) Altered glucose metabolism due to diabetes: Status: Chronic (5) Encephalopathy: Status: Chronic (6) Decubital ulcer: Status: Chronic (7) G tube feedings: Status: Chronic (8) Tracheostomy in place: Status: Chronic SUBJECTIVE Fever:: none Shortness of Breath:: none Pain:: none OBJECTIVE Most recent vital signs: Last Vital Signs Temp 97.0 F 04/22/25 16:26 Pulse 59 L 04/22/25 16:26 Resp 24 H 04/22/25 16:26 BP 126/74 04/22/25 16:26 Pulse Ox 99 04/22/25 12:39 O2 Del Method Blow-by 04/21/25 06:00 O2 Flow Rate 6 04/22/25 12:39 FiO2 28 04/22/25 12:39 Speech:: mouths words (sometimes) Answers questions:: sometimes (mostly by gestures) Respiratory:: lungs clear Cardiovascular: RRR Abdomen: soft Tracheostomy:: to blow by Feeding per:: G tube ASSESSMENT & PLAN Assessment: Pt seems to be fairly stable with all above diagnosis and with limited /guarded prognosis for recovery to independent living and needs all support. Family supportive Denies any pain. VSS 11-11-24 Met with family in pt's room and updated them as well as answered all questions. Reiterated limited prognosis for independent living. Neurology input on prognostic outlook and medication review followed. Repeat CT head ordered by neurologist was done and results discussed with the Neurologist who confirmed stable changes and recommended no change on medicine. This was updated with the family the No new issues , Talked with family at bedside and updated them. VSS. Started on Melatonin q hs 3 mgs prn to facilitate sleep. Pt had fever due to E. faecalis UTI and started on Vancomycin 1gm IVPB q 12 hourly on 12-28-24 Responded well and cleared. Family very actitvely participating in patient care Some constipation concerns, was given Lactulose . Being monitored but pt did not respond to treatment and was sent to the ER were he finally did poop and stabilized and returned to the [facility] at night doing well on the above treatment protocol. Now requiring Lactulose and occasional suppository for Constipation. Tolerating feeding. VSS. No new issues. Bowel movements somewhat improved on increasing Lactulose . Stable status. Pt not to be left on [place] speaking valve unattended since he cannote operate it himself. No new issues. looks comfortable. Family mostly visits daily and very supportive. stable Plan: Full support medical/nutritional and emotional towards maintaining some quality of life
[2025-04-23] VITALS (9 sets, daily range): BP systolic 111–152; BP diastolic 68–80; PULSE 54–76; RESP 16–21; TEMP 36.3–36.6; O2SAT 95–99
[2025-04-23] MEDS: IPRATROPIUM/ALBUTEROL 3 ML AMPUL.NEB INH ×4 (01:08→18:17)
[2025-04-23] MEDS: LEVOTHYROXINE 200 MCG TABLET GT (05:43)
[2025-04-23] MEDS: INSULIN REGULAR, HUMAN 100 UNIT/ML VIAL SC ×2 (05:44→18:59)
[2025-04-23] MEDS: CHOLECALCIFEROL (VITAMIN D3) 25 MCG TABLET GT (08:47)
[2025-04-23] MEDS: APIXABAN 5 MG TABLET GT ×2 (08:47→21:06)
[2025-04-23] MEDS: CLOPIDOGREL BISULFATE 75 MG TABLET GT (08:48)
[2025-04-23] MEDS: LACTULOSE 10 GM/15 ML SOLUTION 20 GM GT ×2 (08:48→21:06)
[2025-04-23] MEDS: DEX/HYPRO/GLY ARTIFICAL TEARS 225 DROP/15 ML BTL BOTH EYES ×2 (08:48→21:06)
[2025-04-23] MEDS: SENNOSIDES 8.6 MG TABLET GT ×2 (08:49→21:06)
--- NOTE | 2025-04-23 11:07 | PC.SS ---
This SSD spoke with resident SHANNAN Li who asked if resident was still getting up in [place] chair and was he attending activities. This SSD informed Jen resident has been aggressive and refusing to get out of bed or attend activities. Jen has asked that resident continue to be encouraged and be taken to activity room as she does not want him to stay in room all day everyday. This SSD spoke with air traffic coordinator and informed her of Jen's request. This SSD informed charge nurse and DON of SHANNAN's request.
--- NOTE | 2025-04-23 13:33 | PC.NURSE ---
Called MD regarding capping trials. MD order resident's trach capping as tolerated and with closed supervision.
--- NOTE | 2025-04-23 18:23 | PC.LAC ---
Called MD regarding trials for capping trach. MD order to do trials as tolerated with close supervision.. Hillary night RT Began capping trial at 1740. resident tolerated well. remains on continuos pulse oxymeter sating between 97-98%. Family remains at resident's bedside. Will continue to monitor.
[2025-04-23] MEDS: MAGNESIUM HYDROXIDE 30 ML ORAL SUSP ML GT (21:05)
[2025-04-23] MEDS: MELATONIN 3 MG TABLET GT (21:05)
[2025-04-23] MEDS: ATORVASTATIN 40 MG TABLET GT (21:06)
[2025-04-24] VITALS (8 sets, daily range): BP systolic 118–146; BP diastolic 65–79; PULSE 51–68; RESP 16–19; TEMP 36.4–36.5; O2SAT 96–100
[2025-04-24] MEDS: IPRATROPIUM/ALBUTEROL 3 ML AMPUL.NEB INH ×3 (01:01→12:56)
[2025-04-24] MEDS: INSULIN REGULAR, HUMAN 100 UNIT/ML VIAL SC (05:33)
[2025-04-24] MEDS: LEVOTHYROXINE 200 MCG TABLET GT (05:33)
[2025-04-24] MEDS: APIXABAN 5 MG TABLET GT ×2 (08:50→20:45)
[2025-04-24] MEDS: AMIODARONE 200 MG TABLET 400 MG GT (08:50)
[2025-04-24] MEDS: CLOPIDOGREL BISULFATE 75 MG TABLET GT (08:51)
[2025-04-24] MEDS: DEX/HYPRO/GLY ARTIFICAL TEARS 225 DROP/15 ML BTL BOTH EYES ×2 (08:51→20:46)
[2025-04-24] MEDS: CHOLECALCIFEROL (VITAMIN D3) 25 MCG TABLET GT (08:51)
[2025-04-24] MEDS: LACTULOSE 10 GM/15 ML SOLUTION 20 GM GT ×2 (08:51→20:46)
[2025-04-24] MEDS: SENNOSIDES 8.6 MG TABLET GT ×2 (08:53→20:46)
--- NOTE | 2025-04-24 10:41 | PC.SS ---
Resident remains on blow by with trach in place and GT for medication and nutrition. Resident is unable to make decisions for self as he has absence of speech, his is his decision maker. Resident will remain in current care and will continue to have all subacute care needs met by staff. This SSD will make daily contact with resident and will offer support as needed.
[2025-04-24] MEDS: ACETAMINOPHEN 325 MG TABLET 650 MG GT (16:13)
[2025-04-24] MEDS: ATORVASTATIN 40 MG TABLET GT (20:45)
[2025-04-24] MEDS: MELATONIN 3 MG TABLET GT (20:50)
[2025-04-25] VITALS (8 sets, daily range): BP systolic 105–143; BP diastolic 56–76; PULSE 50–67; RESP 18–21; TEMP 36.1–36.6; O2SAT 95–100
[2025-04-25] MEDS: IPRATROPIUM/ALBUTEROL 3 ML AMPUL.NEB INH ×4 (00:37→18:59)
[2025-04-25] MEDS: LEVOTHYROXINE 200 MCG TABLET GT (05:31)
[2025-04-25] MEDS: APIXABAN 5 MG TABLET GT ×2 (08:33→20:55)
[2025-04-25] MEDS: AMIODARONE 200 MG TABLET 400 MG GT (08:33)
[2025-04-25] MEDS: DEX/HYPRO/GLY ARTIFICAL TEARS 225 DROP/15 ML BTL BOTH EYES ×2 (08:34→20:55)
[2025-04-25] MEDS: LACTULOSE 10 GM/15 ML SOLUTION 20 GM GT ×2 (08:34→20:55)
[2025-04-25] MEDS: CLOPIDOGREL BISULFATE 75 MG TABLET GT (08:34)
[2025-04-25] MEDS: CHOLECALCIFEROL (VITAMIN D3) 25 MCG TABLET GT (08:34)
[2025-04-25] MEDS: SENNOSIDES 8.6 MG TABLET GT ×2 (08:35→20:56)
[2025-04-25] MEDS: ACETAMINOPHEN 325 MG TABLET 650 MG GT (14:00)
[2025-04-25] MEDS: ATORVASTATIN 40 MG TABLET GT (20:55)
[2025-04-26] VITALS (10 sets, daily range): BP systolic 116–134; BP diastolic 65–79; PULSE 57–76; RESP 16–24; TEMP 35.9–36.6; O2SAT 97–100
[2025-04-26] MEDS: IPRATROPIUM/ALBUTEROL 3 ML AMPUL.NEB INH ×4 (01:35→18:40)
[2025-04-26] MEDS: INSULIN REGULAR, HUMAN 100 UNIT/ML VIAL SC (05:55)
[2025-04-26] MEDS: LEVOTHYROXINE 200 MCG TABLET GT (06:05)
[2025-04-26] MEDS: APIXABAN 5 MG TABLET GT ×2 (08:14→20:21)
[2025-04-26] MEDS: CHOLECALCIFEROL (VITAMIN D3) 25 MCG TABLET GT (08:14)
[2025-04-26] MEDS: CLOPIDOGREL BISULFATE 75 MG TABLET GT (08:15)
[2025-04-26] MEDS: DEX/HYPRO/GLY ARTIFICAL TEARS 225 DROP/15 ML BTL BOTH EYES ×2 (08:15→20:23)
[2025-04-26] MEDS: LACTULOSE 10 GM/15 ML SOLUTION 20 GM GT ×2 (08:15→20:23)
[2025-04-26] MEDS: SENNOSIDES 8.6 MG TABLET GT ×2 (08:16→20:23)
[2025-04-26] MEDS: CARBAMIDE PEROXIDE OTIC SOL 15 ML BTL 5 DROP BOTH EARS ×2 (09:00→20:22)
--- NOTE | 2025-04-26 11:02 | PC.NURSE ---
1045- During rounds with EDUCATIONAL THERAPY TEACHER noted residents blue tubing disconnected and trach sitting at base of stoma. RT called and RT Johnnie responded with two other RT's . New trach inserted with minimal difficulty. Resident combative during trach change and assistance required to apply bilateral mittens. Vital signs as follows: BP 125/74, P80, R18, T 97.1, O2 sat 100%. Q4 vital signs started. Resident resting in bed with eyes open, no s/s of pain or distress noted. Call light within reach. RN notified. Will continue with current plan of care.
[2025-04-26] MEDS: ACETAMINOPHEN 325 MG TABLET 650 MG GT (15:14)
[2025-04-26] MEDS: ATORVASTATIN 40 MG TABLET GT (20:22)
[2025-04-26] MEDS: MELATONIN 3 MG TABLET GT (20:24)
--- NOTE | 2025-04-26 22:15 | ESPR_ITS ---
Progress Note - SubAcute DIAGNOSIS (1) Acute arterial ischemic stroke, vertebrobasilar, brainstem: Status: Chronic Qualifiers: Laterality: left Qualified Code(s): I63.212 - Cerebral infarction due to unspecified occlusion or stenosis of left vertebral artery; I63.22 - Cerebral infarction due to unspecified occlusion or stenosis of basilar artery (2) Seizures, generalized convulsive: Status: Chronic (3) Chronic respiratory failure: Status: Chronic Qualifiers: Respiratory failure complication: unspecified whether with hypoxia or hypercapnia Qualified Code(s): J96.10 - Chronic respiratory failure, unspecified whether with hypoxia or hypercapnia (4) Altered glucose metabolism due to diabetes: Status: Chronic (5) Encephalopathy: Status: Chronic (6) Decubital ulcer: Status: Chronic (7) G tube feedings: Status: Chronic (8) Tracheostomy in place: Status: Chronic SUBJECTIVE Fever:: none Shortness of Breath:: none Pain:: none OBJECTIVE Most recent vital signs: Last Vital Signs Temp 96.6 F L 04/26/25 12:00 Pulse 68 04/26/25 15:22 Resp 24 H 04/26/25 15:22 BP 130/65 04/26/25 12:00 Pulse Ox 98 04/26/25 15:22 O2 Del Method Blow-by 04/26/25 06:00 O2 Flow Rate 6 04/26/25 06:15 FiO2 28 04/26/25 06:15 Speech:: mouths words (sometimes) Answers questions:: sometimes (mostly by gestures) Respiratory:: lungs clear Cardiovascular: RRR Abdomen: soft Tracheostomy:: to blow by Feeding per:: G tube ASSESSMENT & PLAN Assessment: Pt seems to be fairly stable with all above diagnosis and with limited /guarded prognosis for recovery to independent living and needs all support. Family supportive Denies any pain. VSS 11-11-24 Met with family in pt's room and updated them as well as answered all questions. Reiterated limited prognosis for independent living. Neurology input on prognostic outlook and medication review followed. Repeat CT head ordered by neurologist was done and results discussed with the Neurologist who confirmed stable changes and recommended no change on medicine. This was updated with the family the No new issues , Talked with family at bedside and updated them. VSS. Started on Melatonin q hs 3 mgs prn to facilitate sleep. Pt had fever due to E. faecalis UTI and started on Vancomycin 1gm IVPB q 12 hourly on 12-28-24 Responded well and cleared. Family very actitvely participating in patient care Some constipation concerns, was given Lactulose . Being monitored but pt did not respond to treatment and was sent to the ER were he finally did poop and stabilized and returned to the [facility] at night doing well on the above treatment protocol. Now requiring Lactulose and occasional suppository for Constipation. Tolerating feeding. VSS. No new issues. Bowel movements somewhat improved on increasing Lactulose . Stable status. Pt not to be left on Passe[place] speaking valve unattended since he cannote operate it himself. No new issues. looks comfortable. Family mostly visits daily and very supportive. stable Tracheostomy capping trials initiated. Plan: Full support medical/nutritional and emotional towards maintaining some quality of life
[2025-04-27] VITALS (10 sets, daily range): BP systolic 114–133; BP diastolic 64–76; PULSE 66–89; RESP 16–20; TEMP 36.3–36.9; O2SAT 97–100
[2025-04-27] MEDS: IPRATROPIUM/ALBUTEROL 3 ML AMPUL.NEB INH ×4 (00:41→18:38)
[2025-04-27] MEDS: LEVOTHYROXINE 200 MCG TABLET GT (05:05)
[2025-04-27] MEDS: APIXABAN 5 MG TABLET GT ×2 (08:10→20:50)
[2025-04-27] MEDS: AMIODARONE 200 MG TABLET 400 MG GT (08:10)
[2025-04-27] MEDS: CHOLECALCIFEROL (VITAMIN D3) 25 MCG TABLET GT (08:11)
[2025-04-27] MEDS: CARBAMIDE PEROXIDE OTIC SOL 15 ML BTL 5 DROP BOTH EARS (08:11)
[2025-04-27] MEDS: DEX/HYPRO/GLY ARTIFICAL TEARS 225 DROP/15 ML BTL BOTH EYES ×2 (08:11→20:51)
[2025-04-27] MEDS: LACTULOSE 10 GM/15 ML SOLUTION 20 GM GT ×2 (08:11→20:51)
[2025-04-27] MEDS: CLOPIDOGREL BISULFATE 75 MG TABLET GT (08:11)
[2025-04-27] MEDS: SENNOSIDES 8.6 MG TABLET GT ×2 (08:12→20:52)
[2025-04-27] MEDS: INSULIN REGULAR, HUMAN 100 UNIT/ML VIAL SC (17:12)
[2025-04-27] MEDS: ACETAMINOPHEN 325 MG TABLET 650 MG GT (20:40)
[2025-04-27] MEDS: MELATONIN 3 MG TABLET GT (20:40)
[2025-04-27] MEDS: ATORVASTATIN 40 MG TABLET GT (20:51)
[2025-04-28] MEDS: IPRATROPIUM/ALBUTEROL 3 ML AMPUL.NEB INH ×4 (00:31→18:50)
[2025-04-28 00:49] VITALS: PULSE 74; RESP 18; O2SAT 99
[2025-04-28] MEDS: LEVOTHYROXINE 200 MCG TABLET GT (06:04)
[2025-04-28] MEDS: INSULIN REGULAR, HUMAN 100 UNIT/ML VIAL SC (06:04)
[2025-04-28 06:05] VITALS: PULSE 77; PULSE 81; RESP 16; RESP 18; O2SAT 100; O2SAT 98
[2025-04-28 08:43] VITALS: BP 105/58; PULSE 56
[2025-04-28] MEDS: APIXABAN 5 MG TABLET GT ×2 (08:44→21:04)
[2025-04-28] MEDS: CARBAMIDE PEROXIDE OTIC SOL 15 ML BTL 5 DROP BOTH EARS ×2 (08:44→21:04)
[2025-04-28] MEDS: CLOPIDOGREL BISULFATE 75 MG TABLET GT (08:45)
[2025-04-28] MEDS: LACTULOSE 10 GM/15 ML SOLUTION 20 GM GT ×2 (08:45→21:05)
[2025-04-28] MEDS: SENNOSIDES 8.6 MG TABLET GT ×2 (08:45→21:06)
[2025-04-28] MEDS: CHOLECALCIFEROL (VITAMIN D3) 25 MCG TABLET GT (08:45)
[2025-04-28] MEDS: DEX/HYPRO/GLY ARTIFICAL TEARS 225 DROP/15 ML BTL BOTH EYES ×2 (08:45→21:04)
[2025-04-28 12:00] VITALS: BP 136/77; PULSE 51; PULSE 81; RESP 17; RESP 18; TEMP 36.3; O2SAT 100
[2025-04-28 17:24] VITALS: BP 97/56; PULSE 50; RESP 19; TEMP 36.3; O2SAT 93
[2025-04-28 18:51] VITALS: PULSE 63; PULSE 79; RESP 16; RESP 18; O2SAT 100
[2025-04-28] MEDS: ATORVASTATIN 40 MG TABLET GT (21:04)
[2025-04-28] MEDS: ACETAMINOPHEN 325 MG TABLET 650 MG GT (21:15)
[2025-04-28] MEDS: MELATONIN 3 MG TABLET GT (21:15)
[2025-04-29] VITALS (10 sets, daily range): BP systolic 122–138; BP diastolic 66–76; PULSE 6–69; RESP 16–21; TEMP 36.2–36.5; O2SAT 98–100
[2025-04-29] MEDS: IPRATROPIUM/ALBUTEROL 3 ML AMPUL.NEB INH ×4 (01:17→18:34)
[2025-04-29] MEDS: LEVOTHYROXINE 200 MCG TABLET GT (06:11)
[2025-04-29] MEDS: AMIODARONE 200 MG TABLET 400 MG GT (08:52)
[2025-04-29] MEDS: CHOLECALCIFEROL (VITAMIN D3) 25 MCG TABLET GT (08:53)
[2025-04-29] MEDS: CARBAMIDE PEROXIDE OTIC SOL 15 ML BTL 5 DROP BOTH EARS (08:53)
[2025-04-29] MEDS: CLOPIDOGREL BISULFATE 75 MG TABLET GT (08:53)
[2025-04-29] MEDS: APIXABAN 5 MG TABLET GT ×2 (08:53→20:36)
[2025-04-29] MEDS: SENNOSIDES 8.6 MG TABLET GT ×2 (08:54→20:39)
[2025-04-29] MEDS: DEX/HYPRO/GLY ARTIFICAL TEARS 225 DROP/15 ML BTL BOTH EYES ×2 (08:54→20:37)
[2025-04-29] MEDS: LACTULOSE 10 GM/15 ML SOLUTION 20 GM GT ×2 (08:54→20:37)
[2025-04-29] MEDS: ACETAMINOPHEN 325 MG TABLET 650 MG GT ×2 (12:00→21:10)
[2025-04-29] MEDS: ATORVASTATIN 40 MG TABLET GT (20:37)
[2025-04-29] MEDS: MELATONIN 3 MG TABLET GT (21:10)
[2025-04-30] VITALS (9 sets, daily range): BP systolic 113–148; BP diastolic 57–79; PULSE 56–84; RESP 18–95; TEMP 36.4–36.8; O2SAT 95–99
[2025-04-30] MEDS: IPRATROPIUM/ALBUTEROL 3 ML AMPUL.NEB INH ×4 (00:13→18:41)
[2025-04-30] MEDS: LEVOTHYROXINE 200 MCG TABLET GT (06:10)
[2025-04-30] MEDS: CLOPIDOGREL BISULFATE 75 MG TABLET GT (08:47)
[2025-04-30] MEDS: AMIODARONE 200 MG TABLET 400 MG GT (08:47)
[2025-04-30] MEDS: APIXABAN 5 MG TABLET GT ×2 (08:47→20:59)
[2025-04-30] MEDS: CHOLECALCIFEROL (VITAMIN D3) 25 MCG TABLET GT (08:47)
[2025-04-30] MEDS: LACTULOSE 10 GM/15 ML SOLUTION 20 GM GT ×2 (08:48→20:59)
[2025-04-30] MEDS: SENNOSIDES 8.6 MG TABLET GT ×2 (08:48→20:59)
[2025-04-30] MEDS: DEX/HYPRO/GLY ARTIFICAL TEARS 225 DROP/15 ML BTL BOTH EYES ×2 (08:48→20:59)
[2025-04-30] MEDS: MAGNESIUM HYDROXIDE 30 ML ORAL SUSP ML GT (08:49)
[2025-04-30] MEDS: ACETAMINOPHEN 325 MG TABLET 650 MG GT (13:32)
--- NOTE | 2025-04-30 15:12 | PD.SAPROG ---
Progress Note - SubAcute DIAGNOSIS (1) Acute arterial ischemic stroke, vertebrobasilar, brainstem: Status: Chronic Qualifiers: Laterality: left Qualified Code(s): I63.212 - Cerebral infarction due to unspecified occlusion or stenosis of left vertebral artery; I63.22 - Cerebral infarction due to unspecified occlusion or stenosis of basilar artery (2) Seizures, generalized convulsive: Status: Chronic (3) Chronic respiratory failure: Status: Chronic Qualifiers: Respiratory failure complication: unspecified whether with hypoxia or hypercapnia Qualified Code(s): J96.10 - Chronic respiratory failure, unspecified whether with hypoxia or hypercapnia (4) Altered glucose metabolism due to diabetes: Status: Chronic (5) Encephalopathy: Status: Chronic (6) Decubital ulcer: Status: Chronic (7) G tube feedings: Status: Chronic (8) Tracheostomy in place: Status: Chronic SUBJECTIVE Fever:: none Shortness of Breath:: none Pain:: none OBJECTIVE Most recent vital signs: Last Vital Signs Temp 97.6 F 04/30/25 12:00 Pulse 64 04/30/25 12:26 Resp 18 04/30/25 12:26 BP 148/75 H 04/30/25 12:00 Pulse Ox 99 04/30/25 12:26 O2 Del Method Blow-by 04/28/25 17:24 O2 Flow Rate 6 04/30/25 12:26 FiO2 28 04/30/25 12:26 Speech:: mouths words (sometimes) Answers questions:: sometimes (mostly by gestures) Respiratory:: lungs clear Cardiovascular: RRR Abdomen: soft Tracheostomy:: to blow by Feeding per:: G tube ASSESSMENT & PLAN Assessment: Pt seems to be fairly stable with all above diagnosis and with limited /guarded prognosis for recovery to independent living and needs all support. Family supportive Denies any pain. VSS 11-11-24 Met with family in pt's room and updated them as well as answered all questions. Reiterated limited prognosis for independent living. Neurology input on prognostic outlook and medication review followed. Repeat CT head ordered by neurologist was done and results discussed with the Neurologist who confirmed stable changes and recommended no change on medicine. This was updated with the family the No new issues , Talked with family at bedside and updated them. VSS. Started on Melatonin q hs 3 mgs prn to facilitate sleep. Pt had fever due to E. faecalis UTI and started on Vancomycin 1gm IVPB q 12 hourly on 12-28-24 Responded well and cleared. Family very actitvely participating in patient care Some constipation concerns, was given Lactulose . Being monitored but pt did not respond to treatment and was sent to the ER were he finally did poop and stabilized and returned to the [facility] at night doing well on the above treatment protocol. Now requiring Lactulose and occasional suppository for Constipation. Tolerating feeding. VSS. No new issues. Bowel movements somewhat improved on increasing Lactulose . Stable status. Pt not to be left on Passe[place] speaking valve unattended since he cannote operate it himself. No new issues. looks comfortable. Family mostly visits daily and very supportive. Pt very stable and seems relaxed Tracheostomy capping trials initiated. Plan: Full support medical/nutritional and emotional towards maintaining some quality of life
--- NOTE | 2025-04-30 16:32 | PC.SS ---
Resident remains on blow by with trach in place and GT for medication and nutrition. Resident does not have advanced directive in place nor is he able to participate in process, family aware this services is provided here if resident is able to participate. Resident unable to participate in this process his Jen remains his decision maker as he is unable to make decision for self due to cognitive impairment. Resident will remain in current care and will continue to have all subacute care needs met by staff. This SSD will continue to make daily contact with resident and will monitor for changes in mood and behavior.
[2025-04-30] MEDS: ATORVASTATIN 40 MG TABLET GT (20:59)
[2025-04-30] MEDS: BISACODYL 10 MG SUPP.RECT PR (23:32)
[2025-05-01] VITALS (10 sets, daily range): BP systolic 119–142; BP diastolic 67–77; PULSE 57–84; RESP 16–19; TEMP 36.4–37; O2SAT 92–99
[2025-05-01] MEDS: IPRATROPIUM/ALBUTEROL 3 ML AMPUL.NEB INH ×4 (01:39→19:26)
[2025-05-01] MEDS: LEVOTHYROXINE 200 MCG TABLET GT (05:19)
[2025-05-01] MEDS: CLOPIDOGREL BISULFATE 75 MG TABLET GT (08:53)
[2025-05-01] MEDS: DEX/HYPRO/GLY ARTIFICAL TEARS 225 DROP/15 ML BTL BOTH EYES ×2 (08:53→21:11)
[2025-05-01] MEDS: SENNOSIDES 8.6 MG TABLET GT ×2 (08:53→21:11)
[2025-05-01] MEDS: APIXABAN 5 MG TABLET GT ×2 (08:53→21:11)
[2025-05-01] MEDS: LACTULOSE 10 GM/15 ML SOLUTION 20 GM GT ×2 (08:53→21:11)
[2025-05-01] MEDS: CHOLECALCIFEROL (VITAMIN D3) 25 MCG TABLET GT (08:53)
[2025-05-01] MEDS: AMIODARONE 200 MG TABLET 400 MG GT (08:53)
[2025-05-01] MEDS: ACETAMINOPHEN 325 MG TABLET 650 MG GT (11:40)
--- NOTE | 2025-05-01 13:58 | PC.SS ---
Resident continues capping trials as the plan is for him to have trach removed and he be able to DC to rehab. Resident and son are at bedside daily, resident continues to show aggression to wards and staff. Resident will continue capping trial to meet DC goals. He will continue to have all subacute care needs met by staff in facility. This SSD will make daily contact with resident and will monitor for changes in mood and behavior.
--- NOTE | 2025-05-01 15:57 | PC.NURSE ---
REsident continues to tolerate red capping. Remains at RA with saturation of 97-98%. . Will continue to monitor.
[2025-05-01] MEDS: INSULIN REGULAR, HUMAN 100 UNIT/ML VIAL SC (17:03)
--- NOTE | 2025-05-01 19:16 | PC.NURSE ---
At 1040 when changing resident and getting him ready to attend activities he became angry and combative started swinging his arms and kicking his legs trying to hit and kick staff. Attempting to kick this nurse in the face x2 but unsuccessful. Charge nurse Cristy Fierro was informed that resident was non compliant & resistive with care and preferred not to take to activities but charge nurse disagreed and ordered this nurse to continue care and take resident to activities as schedule. Resident was medicated with Tylenol 325 mg x2 tablets and Ativan 0.5 mg PRN
[2025-05-01] MEDS: ATORVASTATIN 40 MG TABLET GT (21:11)
[2025-05-02] VITALS (7 sets, daily range): BP systolic 111–113; BP diastolic 62–70; PULSE 54–72; RESP 18–20; TEMP 36.7–36.9; O2SAT 95–100
[2025-05-02] MEDS: IPRATROPIUM/ALBUTEROL 3 ML AMPUL.NEB INH ×4 (01:08→19:56)
[2025-05-02] MEDS: INSULIN REGULAR, HUMAN 100 UNIT/ML VIAL SC ×2 (05:41→17:20)
[2025-05-02] MEDS: LEVOTHYROXINE 200 MCG TABLET GT (05:41)
[2025-05-02] MEDS: AMIODARONE 200 MG TABLET 400 MG GT (08:50)
[2025-05-02] MEDS: LACTULOSE 10 GM/15 ML SOLUTION 20 GM GT ×2 (08:51→21:00)
[2025-05-02] MEDS: DEX/HYPRO/GLY ARTIFICAL TEARS 225 DROP/15 ML BTL BOTH EYES ×2 (08:51→20:59)
[2025-05-02] MEDS: CLOPIDOGREL BISULFATE 75 MG TABLET GT (08:51)
[2025-05-02] MEDS: SENNOSIDES 8.6 MG TABLET GT ×2 (08:51→21:00)
[2025-05-02] MEDS: CHOLECALCIFEROL (VITAMIN D3) 25 MCG TABLET GT (08:51)
[2025-05-02] MEDS: APIXABAN 5 MG TABLET GT ×2 (08:51→20:59)
[2025-05-02] MEDS: ACETAMINOPHEN 325 MG TABLET 650 MG GT (15:17)
[2025-05-02] MEDS: ATORVASTATIN 40 MG TABLET GT (20:59)
[2025-05-03] VITALS (7 sets, daily range): BP systolic 116–146; BP diastolic 65–69; PULSE 50–61; RESP 18–20; TEMP 36.4; O2SAT 97–100
[2025-05-03] MEDS: IPRATROPIUM/ALBUTEROL 3 ML AMPUL.NEB INH ×4 (00:47→19:49)
[2025-05-03] MEDS: LEVOTHYROXINE 200 MCG TABLET GT (05:46)
[2025-05-03] MEDS: INSULIN REGULAR, HUMAN 100 UNIT/ML VIAL SC (05:46)
[2025-05-03] MEDS: AMIODARONE 200 MG TABLET 400 MG GT (08:44)
[2025-05-03] MEDS: CHOLECALCIFEROL (VITAMIN D3) 25 MCG TABLET GT (08:45)
[2025-05-03] MEDS: APIXABAN 5 MG TABLET GT ×2 (08:45→20:33)
[2025-05-03] MEDS: LACTULOSE 10 GM/15 ML SOLUTION 20 GM GT ×2 (08:45→20:34)
[2025-05-03] MEDS: CLOPIDOGREL BISULFATE 75 MG TABLET GT (08:45)
[2025-05-03] MEDS: DEX/HYPRO/GLY ARTIFICAL TEARS 225 DROP/15 ML BTL BOTH EYES ×2 (08:45→20:34)
[2025-05-03] MEDS: SENNOSIDES 8.6 MG TABLET GT ×2 (08:46→20:34)
[2025-05-03] MEDS: ACETAMINOPHEN 325 MG TABLET 650 MG GT ×2 (08:51→15:26)
[2025-05-03] MEDS: MAGNESIUM HYDROXIDE 30 ML ORAL SUSP ML GT (20:34)
[2025-05-03] MEDS: MELATONIN 3 MG TABLET GT (20:34)
[2025-05-03] MEDS: ATORVASTATIN 40 MG TABLET GT (20:34)
[2025-05-04] VITALS (9 sets, daily range): BP systolic 115–132; BP diastolic 67–70; PULSE 56–72; RESP 18–20; TEMP 36.1–37.1; O2SAT 96–99
[2025-05-04] MEDS: IPRATROPIUM/ALBUTEROL 3 ML AMPUL.NEB INH ×4 (02:12→19:27)
[2025-05-04] MEDS: LEVOTHYROXINE 200 MCG TABLET GT (05:31)
[2025-05-04] MEDS: INSULIN REGULAR, HUMAN 100 UNIT/ML VIAL SC ×2 (05:31→17:03)
[2025-05-04] MEDS: CLOPIDOGREL BISULFATE 75 MG TABLET GT (08:23)
[2025-05-04] MEDS: AMIODARONE 200 MG TABLET 400 MG GT (08:23)
[2025-05-04] MEDS: CHOLECALCIFEROL (VITAMIN D3) 25 MCG TABLET GT (08:23)
[2025-05-04] MEDS: APIXABAN 5 MG TABLET GT ×2 (08:23→20:32)
[2025-05-04] MEDS: DEX/HYPRO/GLY ARTIFICAL TEARS 225 DROP/15 ML BTL BOTH EYES ×2 (08:24→20:32)
[2025-05-04] MEDS: LACTULOSE 10 GM/15 ML SOLUTION 20 GM GT ×2 (08:24→20:32)
[2025-05-04] MEDS: SENNOSIDES 8.6 MG TABLET GT ×2 (08:25→20:32)
[2025-05-04] MEDS: BISACODYL 10 MG SUPP.RECT PR (11:10)
[2025-05-04] MEDS: MELATONIN 3 MG TABLET GT (20:32)
[2025-05-04] MEDS: ATORVASTATIN 40 MG TABLET GT (20:32)
--- NOTE | 2025-05-04 22:45 | PD.SAPROG ---
Progress Note - SubAcute DIAGNOSIS (1) Acute arterial ischemic stroke, vertebrobasilar, brainstem: Status: Chronic Qualifiers: Laterality: left Qualified Code(s): I63.212 - Cerebral infarction due to unspecified occlusion or stenosis of left vertebral artery; I63.22 - Cerebral infarction due to unspecified occlusion or stenosis of basilar artery (2) Seizures, generalized convulsive: Status: Chronic (3) Chronic respiratory failure: Status: Chronic Qualifiers: Respiratory failure complication: unspecified whether with hypoxia or hypercapnia Qualified Code(s): J96.10 - Chronic respiratory failure, unspecified whether with hypoxia or hypercapnia (4) Altered glucose metabolism due to diabetes: Status: Chronic (5) Encephalopathy: Status: Chronic (6) Decubital ulcer: Status: Chronic (7) G tube feedings: Status: Chronic (8) Tracheostomy in place: Status: Chronic SUBJECTIVE Fever:: none Shortness of Breath:: none Pain:: none OBJECTIVE Most recent vital signs: Last Vital Signs Temp 98.8 F 05/04/25 18:00 Pulse 67 05/04/25 19:28 Resp 18 05/04/25 19:28 BP 121/70 05/04/25 18:00 Pulse Ox 99 05/04/25 19:28 O2 Del Method Blow-by 05/04/25 18:00 O2 Flow Rate 6 05/04/25 19:28 FiO2 28 05/04/25 19:28 Speech:: mouths words (sometimes) Answers questions:: sometimes (mostly by gestures) Respiratory:: lungs clear Cardiovascular: RRR Abdomen: soft Tracheostomy:: to blow by Feeding per:: G tube ASSESSMENT & PLAN Assessment: Pt seems to be fairly stable with all above diagnosis and with limited /guarded prognosis for recovery to independent living and needs all support. Family supportive Denies any pain. VSS 11-11-24 Met with family in pt's room and updated them as well as answered all questions. Reiterated limited prognosis for independent living. Neurology input on prognostic outlook and medication review followed. Repeat CT head ordered by neurologist was done and results discussed with the Neurologist who confirmed stable changes and recommended no change on medicine. This was updated with the family the No new issues , Talked with family at bedside and updated them. VSS. Started on Melatonin q hs 3 mgs prn to facilitate sleep. Pt had fever due to E. faecalis UTI and started on Vancomycin 1gm IVPB q 12 hourly on 12-28-24 Responded well and cleared. Family very actitvely participating in patient care Some constipation concerns, was given Lactulose . Being monitored but pt did not respond to treatment and was sent to the ER were he finally did poop and stabilized and returned to the [facility] at night doing well on the above treatment protocol. Now requiring Lactulose and occasional suppository for Constipation. Tolerating feeding. VSS. No new issues. Bowel movements somewhat improved on increasing Lactulose . Stable status. Pt not to be left on Passe[place] speaking valve unattended since he cannote operate it himself. No new issues. looks comfortable. Family mostly visits daily and very supportive. Pt very stable and seems relaxed Tracheostomy capping trials initiated. Tolerating well Plan: Full support medical/nutritional and emotional towards maintaining some quality of life
[2025-05-04] MEDS: SODIUM PHOSPHATE,MONO-DIBASIC 133 ML ENEMA PR (23:36)
[2025-05-05] VITALS (7 sets, daily range): BP systolic 110–124; BP diastolic 63–70; PULSE 62–74; RESP 18; TEMP 36.4; O2SAT 96–99
[2025-05-05] MEDS: IPRATROPIUM/ALBUTEROL 3 ML AMPUL.NEB INH ×4 (01:16→19:04)
[2025-05-05] MEDS: INSULIN REGULAR, HUMAN 100 UNIT/ML VIAL SC ×2 (05:30→17:57)
[2025-05-05] MEDS: LEVOTHYROXINE 200 MCG TABLET GT (05:30)
[2025-05-05] MEDS: APIXABAN 5 MG TABLET GT ×2 (08:23→20:48)
[2025-05-05] MEDS: CHOLECALCIFEROL (VITAMIN D3) 25 MCG TABLET GT (08:23)
[2025-05-05] MEDS: AMIODARONE 200 MG TABLET 400 MG GT (08:23)
[2025-05-05] MEDS: CLOPIDOGREL BISULFATE 75 MG TABLET GT (08:23)
[2025-05-05] MEDS: DEX/HYPRO/GLY ARTIFICAL TEARS 225 DROP/15 ML BTL BOTH EYES ×2 (08:24→20:48)
[2025-05-05] MEDS: LACTULOSE 10 GM/15 ML SOLUTION 20 GM GT ×2 (08:24→20:48)
[2025-05-05] MEDS: SENNOSIDES 8.6 MG TABLET GT ×2 (08:25→20:48)
[2025-05-05] MEDS: MAGNESIUM HYDROXIDE 30 ML ORAL SUSP ML GT (08:26)
--- NOTE | 2025-05-05 16:11 | PC.SS ---
This SSD confirmed transport with [facility] scheduled for tomorrow with a seed cone picker of 0815 going to [place] for appointment for IVC filter follow up appointment. SHANNAN Li has been notified and provided with information and address regarding appointment.
--- NOTE | 2025-05-05 16:13 | PC.SS ---
DC Planning: This SSD spoke with SHANNAN Li regarding DC planning. Plan is for resident to meet goals to have trach removed if safe and tolerates capping trial. RP stated she would like resident to DC to acute rehab for therapy then be able to return home. This SSD spoke with Lic nurse caring for him regarding his current progress with PMV and shredding specialist, appears to be doing well. This SSD spoke with RT who stated resident is doing well. This SSD notified charge nurse of the plan for DC and RT goals. This SSD will monitor closely and will assist with DC planning.
[2025-05-05] MEDS: ATORVASTATIN 40 MG TABLET GT (20:48)
[2025-05-05] MEDS: MELATONIN 3 MG TABLET GT (20:49)
[2025-05-06] VITALS: BP 128/60; PULSE 70; RESP 18; TEMP 37
[2025-05-06 00:46] VITALS: PULSE 63; RESP 18; O2SAT 94; O2SAT 99
[2025-05-06] MEDS: IPRATROPIUM/ALBUTEROL 3 ML AMPUL.NEB INH ×3 (00:46→20:17)
[2025-05-06] MEDS: LEVOTHYROXINE 200 MCG TABLET GT (05:10)
[2025-05-06 05:16] VITALS: BP 131/66; PULSE 61; RESP 18; TEMP 36.6
[2025-05-06] MEDS: INSULIN REGULAR, HUMAN 100 UNIT/ML VIAL SC (05:43)
[2025-05-06 06:57] VITALS: PULSE 52; PULSE 60; RESP 18; O2SAT 98; O2SAT 99
[2025-05-06 08:05] VITALS: BP 127/72; PULSE 73
[2025-05-06] MEDS: AMIODARONE 200 MG TABLET 400 MG GT (08:05)
[2025-05-06] MEDS: DEX/HYPRO/GLY ARTIFICAL TEARS 225 DROP/15 ML BTL BOTH EYES ×2 (08:06→20:53)
[2025-05-06] MEDS: CHOLECALCIFEROL (VITAMIN D3) 25 MCG TABLET GT (08:06)
[2025-05-06] MEDS: APIXABAN 5 MG TABLET GT ×2 (08:06→20:53)
[2025-05-06] MEDS: CLOPIDOGREL BISULFATE 75 MG TABLET GT (08:06)
[2025-05-06] MEDS: LACTULOSE 10 GM/15 ML SOLUTION 20 GM GT ×2 (08:06→20:53)
[2025-05-06] MEDS: SENNOSIDES 8.6 MG TABLET GT ×2 (08:07→20:53)
--- NOTE | 2025-05-06 08:29 | PC.NURSE ---
Resident was picked up by [facility] for his appointment with Dr Mckeon accompanied by RT. Resident alert and responsive. No s/s of respiratory distress noted. Denies any pain or discomfort. Resident made aware of his appointment.
--- NOTE | 2025-05-06 08:40 | PC.NURSE ---
Resident with for appointment to check IVC filter accompanied by RT and the transportation kobyal, @ 0913
--- NOTE | 2025-05-06 12:25 | ESPR_ITS ---
Progress Note - SubAcute DIAGNOSIS (1) Acute arterial ischemic stroke, vertebrobasilar, brainstem: Status: Chronic Qualifiers: Laterality: left Qualified Code(s): I63.212 - Cerebral infarction due to unspecified occlusion or stenosis of left vertebral artery; I63.22 - Cerebral infarction due to unspecified occlusion or stenosis of basilar artery (2) Seizures, generalized convulsive: Status: Chronic (3) Chronic respiratory failure: Status: Chronic Qualifiers: Respiratory failure complication: unspecified whether with hypoxia or hypercapnia Qualified Code(s): J96.10 - Chronic respiratory failure, unspecified whether with hypoxia or hypercapnia (4) Altered glucose metabolism due to diabetes: Status: Chronic (5) Encephalopathy: Status: Chronic (6) Decubital ulcer: Status: Chronic (7) G tube feedings: Status: Chronic (8) Tracheostomy in place: Status: Chronic SUBJECTIVE Fever:: none Shortness of Breath:: none Pain:: none OBJECTIVE Most recent vital signs: Last Vital Signs Temp 98 F 05/09/25 12:00 Pulse 64 05/09/25 16:30 Resp 20 05/09/25 16:30 BP 131/73 H 05/09/25 12:00 Pulse Ox 99 05/09/25 16:30 O2 Del Method Blow-by 05/08/25 06:00 O2 Flow Rate 6 05/09/25 12:21 FiO2 28 05/09/25 12:21 Speech:: mouths words (sometimes) Answers questions:: sometimes (mostly by gestures) Respiratory:: lungs clear Cardiovascular: RRR Abdomen: soft Tracheostomy:: to blow by Feeding per:: G tube ASSESSMENT & PLAN Assessment: Pt seems to be fairly stable with all above diagnosis and with limited /guarded prognosis for recovery to independent living and needs all support. Family supportive Denies any pain. VSS 11-11-24 Met with family in pt's room and updated them as well as answered all questions. Reiterated limited prognosis for independent living. Neurology input on prognostic outlook and medication review followed. Repeat CT head ordered by neurologist was done and results discussed with the Neurologist who confirmed stable changes and recommended no change on medicine. This was updated with the family the No new issues , Talked with family at bedside and updated them. VSS. Started on Melatonin q hs 3 mgs prn to facilitate sleep. Pt had fever due to E. faecalis UTI and started on Vancomycin 1gm IVPB q 12 hourly on 12-28-24 Responded well and cleared. Family very actitvely participating in patient care Some constipation concerns, was given Lactulose . Being monitored but pt did not respond to treatment and was sent to the ER were he finally did poop and stabilized and returned to the [facility] at night doing well on the above treatment protocol. Now requiring Lactulose and occasional suppository for Constipation. Tolerating feeding. VSS. No new issues. Bowel movements somewhat improved on increasing Lactulose . Stable status. Pt not to be left on Pas[place] speaking valve unattended since he cannote operate it himself. No new issues. looks comfortable. Family mostly visits daily and very supportive. Pt very stable and seems relaxed Tracheostomy capping trials initiated. Tolerating well. Family considering possibility of taking him home without the tracheostomy. Plan: Full support medical/nutritional and emotional towards maintaining some quality of life
--- NOTE | 2025-05-06 15:10 | PC.NURSE ---
Resident came back from his appointment with Dr. Mckeon. and recommend to have a CT , they will not remove the IVC filter to help prevent blood clots, resident doesn't need to go back to clinic, we can call office or make a phone call appointment with the DrMarisol. Dr. East made aware and wanted to have a progress note from the Dr. Robbins () made aware.
--- NOTE | 2025-05-06 15:14 | PC.SS ---
This SSD called and left message for [facility] to request service notes from resident appointment today. Resident will follow up up to ensure notes are received. Charge nurse made aware.
[2025-05-06 18:00] VITALS: BP 120/71; PULSE 59; RESP 19; TEMP 36.8; O2SAT 97
[2025-05-06] MEDS: ATORVASTATIN 40 MG TABLET GT (20:53)
[2025-05-07] VITALS (10 sets, daily range): BP systolic 124–160; BP diastolic 63–82; PULSE 57–85; RESP 18–22; TEMP 36.4–36.9; O2SAT 95–100
[2025-05-07] MEDS: IPRATROPIUM/ALBUTEROL 3 ML AMPUL.NEB INH ×4 (01:23→18:42)
[2025-05-07] MEDS: LEVOTHYROXINE 200 MCG TABLET GT (05:14)
[2025-05-07] MEDS: APIXABAN 5 MG TABLET GT ×2 (09:40→20:56)
[2025-05-07] MEDS: DEX/HYPRO/GLY ARTIFICAL TEARS 225 DROP/15 ML BTL BOTH EYES ×2 (09:40→20:56)
[2025-05-07] MEDS: AMIODARONE 200 MG TABLET 400 MG GT (09:40)
[2025-05-07] MEDS: LACTULOSE 10 GM/15 ML SOLUTION 20 GM GT ×2 (09:40→20:57)
[2025-05-07] MEDS: CHOLECALCIFEROL (VITAMIN D3) 25 MCG TABLET GT (09:40)
[2025-05-07] MEDS: CLOPIDOGREL BISULFATE 75 MG TABLET GT (09:40)
[2025-05-07] MEDS: SENNOSIDES 8.6 MG TABLET GT ×2 (09:41→20:58)
[2025-05-07] MEDS: ACETAMINOPHEN 325 MG TABLET 650 MG GT ×2 (09:42→16:19)
--- NOTE | 2025-05-07 16:52 | PC.NURSE ---
At 0715 when this nurse was obtaining vital signs she applied mitten restraint to right hand only. Resident has the ability to move right hand more freely. Left hand appears to be weakened due to ischemic stroke. At 0950 resident was medicated with Tylenol 325 mgx2 tablets PRN for s/s of discomfort and Ativan 0.5 mg PRN for agitation/ anxiety. At 1030 nurse was informed resident pulled his trache out. He was observed reaching with left hand and grabbed nd pulled at his at his trache and dislodged it. RT was in room with RN assisting and was able to put trache back inplace. Minimal bleeding noticed. No s/s of any discomfort. Charge nurse was informed regarding incident and resident placed on Q4 vital signs x24 hr per protocol. Vital signs as follow 98.0, 64, 22, 127/71 SpO2 99% on Blow-by 6L 28%. 1500: 98.0, 69, 20, 105/53 SpO2 99%. No further s/s of any discomfort. Family at bedside and were informed regarding incident.
--- NOTE | 2025-05-07 17:06 | PC.NURSE ---
At 1320 when getting resident ready to attend activities, he became noncompliant and resisting care. Attempting to hit & kick RAIL CAR DRIVER and this nurse. Nurse reassured him we were trying to change his brief and clothing. He appeared relieved / relaxed and allowed nurse and still operator helper to finish changing and repositioning. No further behaviors at this time.
[2025-05-07] MEDS: MELATONIN 3 MG TABLET GT (20:50)
[2025-05-07] MEDS: ATORVASTATIN 40 MG TABLET GT (20:56)
[2025-05-07] MEDS: MAGNESIUM HYDROXIDE 30 ML ORAL SUSP ML GT (21:02)
[2025-05-08] VITALS (8 sets, daily range): BP systolic 103–147; BP diastolic 61–81; PULSE 60–74; RESP 18–20; TEMP 36.3–36.9; O2SAT 98–99
[2025-05-08] MEDS: IPRATROPIUM/ALBUTEROL 3 ML AMPUL.NEB INH ×3 (00:42→12:36)
[2025-05-08] MEDS: LEVOTHYROXINE 200 MCG TABLET GT (05:27)
[2025-05-08] MEDS: INSULIN REGULAR, HUMAN 100 UNIT/ML VIAL SC ×2 (06:14→17:00)
[2025-05-08 08:09] LABS: Glucose,Fasting 158 mg/dL (74-106)
[2025-05-08] MEDS: APIXABAN 5 MG TABLET GT ×2 (08:16→20:53)
[2025-05-08] MEDS: CHOLECALCIFEROL (VITAMIN D3) 25 MCG TABLET GT (08:16)
[2025-05-08] MEDS: AMIODARONE 200 MG TABLET 400 MG GT (08:16)
[2025-05-08] MEDS: DEX/HYPRO/GLY ARTIFICAL TEARS 225 DROP/15 ML BTL BOTH EYES ×2 (08:17→20:54)
[2025-05-08] MEDS: SENNOSIDES 8.6 MG TABLET GT ×2 (08:17→20:55)
[2025-05-08] MEDS: LACTULOSE 10 GM/15 ML SOLUTION 20 GM GT ×2 (08:17→20:54)
[2025-05-08] MEDS: CLOPIDOGREL BISULFATE 75 MG TABLET GT (08:17)
--- NOTE | 2025-05-08 13:50 | PC.SS ---
Resident remains on blow by with trach in place and Gt for medication and nutrition. Resident does not have POA in place and is unable to participate in this process as he has cognitive impairment, his Jen is his decision maker. Resident will remain in current care until he is able to meet DC goals and can be discharged to rehab per request of his . Resident will continue to have all subacute needs met by staff. This SSD will continue to make daily contact with resident and will assist with DC planning as appropriate.
--- NOTE | 2025-05-08 14:48 | PC.SS ---
This SSD called and left 2nd message for [facility] to request service notes for appointment dated 05/06. This SSD to follow up to ensure notes are received. DON and charge nurse aware.
[2025-05-08] MEDS: ATORVASTATIN 40 MG TABLET GT (20:54)
[2025-05-08] MEDS: ACETAMINOPHEN 325 MG TABLET 650 MG GT (20:55)
[2025-05-08] MEDS: MELATONIN 3 MG TABLET GT (20:56)
[2025-05-09] VITALS (8 sets, daily range): BP systolic 108–139; BP diastolic 64–73; PULSE 64–77; RESP 16–20; TEMP 36.5–36.9; O2SAT 96–100
[2025-05-09] MEDS: IPRATROPIUM/ALBUTEROL 3 ML AMPUL.NEB INH ×4 (01:16→16:39)
[2025-05-09] MEDS: LEVOTHYROXINE 200 MCG TABLET GT (05:08)
[2025-05-09] MEDS: INSULIN REGULAR, HUMAN 100 UNIT/ML VIAL SC ×2 (05:24→17:45)
[2025-05-09] MEDS: AMIODARONE 200 MG TABLET 400 MG GT (08:58)
[2025-05-09] MEDS: CLOPIDOGREL BISULFATE 75 MG TABLET GT (08:59)
[2025-05-09] MEDS: APIXABAN 5 MG TABLET GT ×2 (08:59→21:04)
[2025-05-09] MEDS: DEX/HYPRO/GLY ARTIFICAL TEARS 225 DROP/15 ML BTL BOTH EYES ×2 (09:00→21:05)
[2025-05-09] MEDS: CHOLECALCIFEROL (VITAMIN D3) 25 MCG TABLET GT (09:00)
[2025-05-09] MEDS: SENNOSIDES 8.6 MG TABLET GT ×2 (09:01→21:05)
[2025-05-09] MEDS: LACTULOSE 10 GM/15 ML SOLUTION 20 GM GT ×2 (09:01→21:05)
[2025-05-09] MEDS: ACETAMINOPHEN 325 MG TABLET 650 MG GT ×2 (09:03→21:05)
--- NOTE | 2025-05-09 15:31 | PC.NURSE ---
Addendum entered and electronically signed by Rebecca Meza RN 05/09/25 18:44: No order received from MD for trach to be replaced. Original Note: Resident on BB with bilateral mittens on. At around 1510, resident's family came in to visit and reported that resident sounds differently. RN went to resident's room to assess and noted that trach was out, no s/s of respiratory distress noted, satting 100% at RA. RT was was called and noted that stoma site is closed. V/S taken as follows: 114/70, 97.4, 72, [address] Dr East was made aware. Placed resident on continous pulse ox to monitor.
--- NOTE | 2025-05-09 16:54 | PC.NURSE ---
Resident bumped his left middle finger to his side rail causing a skin tear. Resident's family at bedside and aware.
--- NOTE | 2025-05-09 18:21 | PC.NURSE ---
Late Entry for 05/09/25@1600: approached this expert medical writer at nurses station to ask if this expert medical writer could go see why her was talking clearly when he wasn't wearing the green cap. On assessment of trach, the expert medical writer noted that the trach was out and that the trach hole appeared almost closed. This expert medical writer decided to not attempt to push it back in due to possible trauma to site and unaware of how long it had been out. This expert medical writer notified respiratory therapist and charge nurse. Pt was connected to continuous pulse ox. Sats were at 100%, pt was calm relaxed and in a good mood. RT assessed pt at bedside and concluded that pt's trach opening was completely closed. RT notified MD and informed MD of pt's condition. MD told RT it was ok to leave trach out.
--- NOTE | 2025-05-09 18:38 | PC.NURSE ---
Late Entry for 05/09/25@2023: This headline writer was notified that pt had cut his finger on the bed rails. On assessment, pt's left hand middle finger had a slash to the top of left middle finger measuring about 1/2 in length. This headline writer cleaned it with wound spray, pat it dry, applied TAB and covered with two bandaids and a piece of paper tape, losely to keep the bandaids from falling off. Pt tolerated treatment well.
[2025-05-09] MEDS: ATORVASTATIN 40 MG TABLET GT (21:05)
[2025-05-09] MEDS: MELATONIN 3 MG TABLET GT (21:06)
[2025-05-10] VITALS (9 sets, daily range): BP systolic 115–128; BP diastolic 64–91; PULSE 58–72; RESP 18–22; TEMP 36.2–36.6; O2SAT 94–100
[2025-05-10] MEDS: IPRATROPIUM/ALBUTEROL 3 ML AMPUL.NEB INH ×3 (00:54→12:51)
[2025-05-10] MEDS: LEVOTHYROXINE 200 MCG TABLET GT (05:13)
[2025-05-10] MEDS: INSULIN REGULAR, HUMAN 100 UNIT/ML VIAL SC ×2 (05:27→17:10)
--- NOTE | 2025-05-10 08:21 | PC.RT ---
On 05/09/2025 pt found with trach dislodged. Stoma was already closed. Pt SPO2-99% on RA. Dr East aware. Placed on continuous pulse ox. Will continue to monitor pt.
[2025-05-10] MEDS: AMIODARONE 200 MG TABLET 400 MG GT (08:28)
[2025-05-10] MEDS: APIXABAN 5 MG TABLET GT ×2 (08:29→20:59)
[2025-05-10] MEDS: CHOLECALCIFEROL (VITAMIN D3) 25 MCG TABLET GT (08:29)
[2025-05-10] MEDS: CLOPIDOGREL BISULFATE 75 MG TABLET GT (08:29)
[2025-05-10] MEDS: DEX/HYPRO/GLY ARTIFICAL TEARS 225 DROP/15 ML BTL BOTH EYES ×2 (08:29→21:00)
[2025-05-10] MEDS: LACTULOSE 10 GM/15 ML SOLUTION 20 GM GT ×2 (08:30→21:00)
[2025-05-10] MEDS: SENNOSIDES 8.6 MG TABLET GT ×2 (08:30→21:01)
[2025-05-10] MEDS: MELATONIN 3 MG TABLET GT (20:50)
[2025-05-10] MEDS: ATORVASTATIN 40 MG TABLET GT (21:00)
[2025-05-11] VITALS: BP 158/73; PULSE 58; RESP 20; TEMP 36.7
[2025-05-11] MEDS: LEVOTHYROXINE 200 MCG TABLET GT (05:17)
[2025-05-11 06:00] VITALS: BP 118/71; PULSE 53; RESP 20; TEMP 36.3; O2SAT 94
[2025-05-11 07:15] VITALS: PULSE 68; RESP 18; O2SAT 98
[2025-05-11] MEDS: ACETAMINOPHEN 325 MG TABLET 650 MG GT (07:48)
[2025-05-11 08:01] VITALS: BP 113/64; PULSE 61
[2025-05-11] MEDS: CHOLECALCIFEROL (VITAMIN D3) 25 MCG TABLET GT (08:01)
[2025-05-11] MEDS: SENNOSIDES 8.6 MG TABLET GT ×2 (08:01→20:55)
[2025-05-11] MEDS: CLOPIDOGREL BISULFATE 75 MG TABLET GT (08:01)
[2025-05-11] MEDS: DEX/HYPRO/GLY ARTIFICAL TEARS 225 DROP/15 ML BTL BOTH EYES ×2 (08:01→20:55)
[2025-05-11] MEDS: LACTULOSE 10 GM/15 ML SOLUTION 20 GM GT ×2 (08:01→20:55)
[2025-05-11] MEDS: AMIODARONE 200 MG TABLET 400 MG GT (08:01)
[2025-05-11] MEDS: APIXABAN 5 MG TABLET GT ×2 (08:01→20:54)
--- NOTE | 2025-05-11 11:29 | PC.SS ---
This SSD sent referral to 4 acute rehab facilities, resident no longer has trach in place and is ready to DC to lower level of care. Plan is for resident to DC to acute rehab then home with family. Resident has initiated this request for him to DC to acute rehab before returning home. This SSD will follow up with facilities and will keep SHANNAN Li updated of progress. This SSD will assist with DC planning. Charge nurse and DON aware.
[2025-05-11 12:00] VITALS: BP 115/71; PULSE 61; RESP 17; TEMP 37
--- NOTE | 2025-05-11 13:52 | PC.SS ---
Resident was seen by [facility] for dental x-rays, tolerated treatment well.
--- NOTE | 2025-05-11 15:50 | PC.SS ---
This SSD met with resident RP and son regarding their request for resident to be DC to acute rehab. Family believes resident will participate in rehab, this SSD received information about rehab for family and explained how the program works. This SSD discussed with family options for him to be DC to lower level of care to a traditional SNF. Family does not agree with a DC to SNF as they feel he will decline. This SSD has asked the family to think about this in the even resident is not able to participate in acute rehab. This SSD will continue to follow up with family and assist with DC planning to appropriate care setting.
[2025-05-11] MEDS: INSULIN REGULAR, HUMAN 100 UNIT/ML VIAL SC (17:18)
[2025-05-11 17:32] VITALS: BP 115/62; PULSE 77; RESP 18; TEMP 36.8; O2SAT 97
--- NOTE | 2025-05-11 17:58 | ESPR_ITS ---
Progress Note - SubAcute DIAGNOSIS (1) Acute arterial ischemic stroke, vertebrobasilar, brainstem: Status: Chronic Qualifiers: Laterality: left Qualified Code(s): I63.212 - Cerebral infarction due to unspecified occlusion or stenosis of left vertebral artery; I63.22 - Cerebral infarction due to unspecified occlusion or stenosis of basilar artery (2) Seizures, generalized convulsive: Status: Chronic (3) Chronic respiratory failure: Status: Chronic Qualifiers: Respiratory failure complication: unspecified whether with hypoxia or hypercapnia Qualified Code(s): J96.10 - Chronic respiratory failure, unspecified whether with hypoxia or hypercapnia (4) Altered glucose metabolism due to diabetes: Status: Chronic (5) Encephalopathy: Status: Chronic (6) Decubital ulcer: Status: Chronic (7) G tube feedings: Status: Chronic (8) Tracheostomy in place: Status: Chronic SUBJECTIVE Fever:: none Shortness of Breath:: none Pain:: none OBJECTIVE Most recent vital signs: Last Vital Signs Temp 98.2 F 05/11/25 17:32 Pulse 77 05/11/25 17:32 Resp 18 05/11/25 17:32 BP 115/62 05/11/25 17:32 Pulse Ox 97 05/11/25 17:32 O2 Del Method Room Air 05/11/25 17:32 O2 Flow Rate 6 05/09/25 12:21 FiO2 28 05/09/25 12:21 Speech:: mouths words (sometimes) Answers questions:: sometimes (mostly by gestures) Respiratory:: lungs clear Cardiovascular: RRR Abdomen: soft Tracheostomy:: to blow by Feeding per:: G tube ASSESSMENT & PLAN Assessment: Pt seems to be fairly stable with all above diagnosis and with limited /guarded prognosis for recovery to independent living and needs all support. Family supportive Denies any pain. VSS 11-11-24 Met with family in pt's room and updated them as well as answered all questions. Reiterated limited prognosis for independent living. Neurology input on prognostic outlook and medication review followed. Repeat CT head ordered by neurologist was done and results discussed with the Neurologist who confirmed stable changes and recommended no change on medicine. This was updated with the family the No new issues , Talked with family at bedside and updated them. VSS. Started on Melatonin q hs 3 mgs prn to facilitate sleep. Pt had fever due to E. faecalis UTI and started on Vancomycin 1gm IVPB q 12 hourly on 12-28-24 Responded well and cleared. Family very actitvely participating in patient care Some constipation concerns, was given Lactulose . Being monitored but pt did not respond to treatment and was sent to the ER were he finally did poop and stabilized and returned to the [facility] at night doing well on the above treatment protocol. Now requiring Lactulose and occasional suppository for Constipation. Tolerating feeding. VSS. No new issues. Bowel movements somewhat improved on increasing Lactulose . Stable status. Pt not to be left on Passe' [place] speaking valve unattended since he cannote operate it himself. No new issues. looks comfortable. Family mostly visits daily and very supportive. Pt very stable and seems relaxed Tracheostomy capping trials initiated. Tolerating well. Family considering possibility of taking him home without the tracheostomy. Tracheostomy discontinued and family content. Pt maintaining excellent O 2 saturations on room air in the high nineties. Pt's status changed to SNF. Plan: Full support medical/nutritional and emotional towards maintaining some quality of life
[2025-05-11] MEDS: ATORVASTATIN 40 MG TABLET GT (20:55)
[2025-05-11] MEDS: MELATONIN 3 MG TABLET GT (21:00)
[2025-05-12] VITALS: BP 126/67; BP 127/72; PULSE 52; RESP 18; TEMP 36.4; O2SAT 97
[2025-05-12] MEDS: LEVOTHYROXINE 200 MCG TABLET GT (05:20)
[2025-05-12 06:00] VITALS: BP 113/65; BP 127/72; PULSE 49; RESP 18; TEMP 36.3; O2SAT 97
[2025-05-12 07:06] VITALS: PULSE 71; RESP 18; O2SAT 98
[2025-05-12 08:45] VITALS: PULSE 51
[2025-05-12] MEDS: CLOPIDOGREL BISULFATE 75 MG TABLET GT (08:45)
[2025-05-12] MEDS: CHOLECALCIFEROL (VITAMIN D3) 25 MCG TABLET GT (08:45)
[2025-05-12] MEDS: APIXABAN 5 MG TABLET GT (08:45)
[2025-05-12] MEDS: LACTULOSE 10 GM/15 ML SOLUTION 20 GM GT (08:46)
[2025-05-12] MEDS: SENNOSIDES 8.6 MG TABLET GT (08:46)
[2025-05-12] MEDS: DEX/HYPRO/GLY ARTIFICAL TEARS 225 DROP/15 ML BTL BOTH EYES (08:46)
--- NOTE | 2025-05-12 10:22 | PC.NURSE ---
No trach at this time. Currently on room air and doesn't meet the criteria under subacute services, order received from Dr East to discharge resident from subacute services and admit under SNF
[2025-05-12 12:04] VITALS: BP 124/69; PULSE 51; RESP 19; TEMP 36.6
[2025-05-15 12:00] VITALS: BP 126/66; PULSE 51; RESP 18; TEMP 36.3
[2025-05-15 18:15] VITALS: BP 124/60; PULSE 56; RESP 19; TEMP 36.4
== END 2025-05-12 10:23 | disposition other institution (70) | DRG 45 ==
PROVIDERS: Admitting Provider Specialist; Visit Provider Specialist
DX: I63.212 Cerebral infarction due to unspecified occlusion or stenosis of left vertebral artery (principal); I63.22 Cerebral infarction due to unspecified occlusion or stenosis of basilar artery; R56.9 Unspecified convulsions; J96.10 Chronic respiratory failure, unspecified whether with hypoxia or hypercapnia; Z93.0 Tracheostomy status; Z93.1 Gastrostomy status; G93.40 Encephalopathy, unspecified; R13.10 Dysphagia, unspecified; E11.9 Type 2 diabetes mellitus without complications
CPT/HCPCS: 36415; 36600; 70450; 71045; 74018; 76705; 80053; 80061; 80069; 80076; 80177; 80202; 81001; 82803; 82947; 83036; 84145; 84443; 85025; 87040; 87077; 87086; 87186; 87205; 87502; 87811; 92523; 92609; 92610; 93005; 94640; 94762; C1878; J0696; J3370; J7050; Q9963

== ENCOUNTER → 2024-11-14 | Outpatient (CLI) | payer MEDICAID, SELFPAY ==
--- NOTE | 2024-11-14 11:04 | XR_ITS ---
Examination: CT brain head without contrast. 2-D sagittal coronal reconstructions Date and time of exam:November 14, 2024 at 1221 hours INDICATIONS: Patient nonverbal, history CVA CTDI: vol (mGy):49.8 DLP: (mGycm):1005 Technique: Multiple CT axial sections of the brain have been obtained, 5 mm slice thickness. Contrast has not been administered. 2-D sagittal, coronal reconstructions have been obtained Low dose protocols were performed. One or more of the following dose reduction techniques were used; automated exposure control, adjustment of the mA and/or KV according to patient size, use of iterative reconstruction technique. Findings: Acute infarct left occipital lobe with hemorrhagic transformation Ventricles are not enlarged No midline shift of the frontal horns Multiple infarcts in the cerebellar hemispheres and in the left brainstem pontine level, some of the infarcts in the cerebellar hemispheres may be acute IMPRESSION: Acute infarct left occipital lobe with hemorrhagic transformation Multiple cerebellar infarcts as above Consider brain MRI MRA stroke protocol without contrast follow-up
== END | disposition home or self-care (01) ==
PROVIDERS: Referring Provider Psychiatry & Neurology Neurology; Visit Provider Psychiatry & Neurology Neurology
DX: I62.9 Nontraumatic intracranial hemorrhage, unspecified (principal); I61.4 Nontraumatic intracerebral hemorrhage in cerebellum
CPT/HCPCS: 70450

== ENCOUNTER → 2024-11-21 | Outpatient (CLI) | payer MEDICAID, SELFPAY | END | disposition home or self-care (01) | PROVIDERS: PCP Specialist; Referring Provider Psychiatry & Neurology Neurology; Visit Provider Psychiatry & Neurology Neurology | DX: Z53.8 Procedure and treatment not carried out for other reasons (principal) ==

== ENCOUNTER → 2024-12-08 | Outpatient (CLI) | payer MEDICAID, SELFPAY ==
--- NOTE | 2024-12-08 13:00 | XR_ITS ---
Examination: Video esophagram Modified barium swallow Exam date and time: December 08, 2024 1329 hours INDICATIONS: History CVA, history difficulty swallowing months TECHNIQUE AND FINDINGS: Administration nectar barium demonstrates no oral control with vigorous coughing Fluoroscopy 0.3 minute 36 spot fluoroscopic images, radiation dose 12.58 milligray IMPRESSION: Limited study as above
== END | disposition home or self-care (01) ==
LOC: SDIM 13:26
PROVIDERS: PCP Specialist; Referring Provider Specialist; Visit Provider Specialist
DX: J96.90 Respiratory failure, unspecified, unspecified whether with hypoxia or hypercapnia (principal); R13.10 Dysphagia, unspecified; Z86.73 Personal history of transient ischemic attack (TIA), and cerebral infarction without residual deficits
CPT/HCPCS: 74230; A9270

== ENCOUNTER 2025-02-04 16:05 | Emergency (ER) | payer MEDICAID, SELFPAY ==
[2025-02-04 16:11] VITALS: BP 125/74; PULSE 79; RESP 22; TEMP 37.9; O2SAT 96
--- NOTE | 2025-02-04 16:20 | PC.NURSE ---
PT COMES FROM SUB-ACUTE NEXT DOOR, FOR CONSTIPATION. PER SUB-ACUTE NURSE PT WAS GIVEN LACTULOSE, AND MILK-OF-MAG, NO ENEMA WAS ATTEMPTED. PT AWAITING PROVIDERS ASSESSMENT.
--- NOTE | 2025-02-04 17:07 | EDNOTE_ITS ---
ED Abdominal Pain RME/HPI General Chief Complaint: Abdominal Pain Stated complaint: ABD PAIN/DISTENSION Time seen by provider: 02/04/25 16:18 Arrival date/time: 02/04/25 16:05 RME / HPI RME / HPI narrative: 59 year old male with history CVA 05/2024, seizures, s/p tracheostomy placement because of chronic respiratory failure, s/p G-tube placement, diabetes, hypothyroidism, hx left femoral DVT and PE presents to the ED from the subacute unit within this facility for evaluation of abdominal pain today. Per , patient began complaining of pain 3 days ago and has been given medications for constipation without relief. Today noted abdomen appears distended and sent here for further evaluation. No fevers or vomiting reported. Related Data Allergies Allergy/AdvReac Type Severity Reaction Status Date / Time No Known Allergies Allergy Verified 10/24/24 19:31 Review of Systems Review of Systems ROS Unobtainable: unobtainable due to medical condition Past Medical History Past Medical History NEUROLOGIC: Positive Neurological Disorders, Cerebrovascular Accident and Seizures CARDIAC: Positive Cardiac Disorders, Hypercholesterolemia, Deep Vein Thrombosis and Hypertension ENDOCRINE: Positive Endocrine Disorders, Diabetes Mellitus Type 2 and Hypothyroidism PSYCHO/SOCIAL: Positive Anxiety and Behavior Problems Family History FAMILY HISTORY: Positive Family Cardiac Disorders Surgical History SURGICAL: Positive Tracheostomy and Gastrostomy Social History SMOKING STATUS: Never smoker SECOND HAND EXPOSURE: No ED Exam Narrative Physical exam: Physical Exam: General: The vital signs were reviewed. Patient's temperature was 100.2 his pulse is good blood pressure is normal O2 sat is normal he is nonverbal gives minimal eye contact has a tracheostomy tube in place but he is breathing spontaneously with intermittent congested cough as he clears his secretions. There is no stridor there is no apparent respiratory distress at this time extremities are warm and dry. Head & Scalp: Normocephalic, atraumatic. Face: Appears normal and is without lesions, deformity. Ears: Left external pinna appears normal. Right external pinna appears normal. Eyes: The sclera is anicteric. No obvious photophobia. The Left and Right Orbit/Lid/Conjunctiva appears normal without swelling, discoloration or injection. Nose: The nose is without deformity, discharge or tenderness; Throat: Appears normal. The mucous membranes are pink and moist without exudates, redness or mass seen. The tongue appears normal. Neck: The neck is supple and no apparent mass or adenopathy. Chest: The chest wall is normal in size and symmetry and has no chest wall tenderness or crepitus. The patient displays normal ventilator effort without retractions, accessory muscle use and has adequate air movement bilaterally with no wheezes and no rales. Cardiovascular: Regular rate and rhythm; No murmurs, rubs, or gallops; Gastrointestinal: The abdomen appears little protuberant No obvious hernias or mass. The abdomen is has no obvious pain but patient is nonverbal and there is no wincing or obvious guarding. Bowel sounds are present and normal sounding. No CVA tenderness. Genitourinary: Back/Spine: Normal inspection Extremities/Musculoskeletal/lymphatic: The bilateral upper and lower extremities are warm. There is no evidence of arterial insufficiency. There is no evidence of venous insufficiency/edema. T There is no apparent, injury or trauma. Skin: The skin is warm, dry and intact. No rashes. No petechia. No purpura. No abnormal bruising. The color is appropriate with no cyanosis. Mental status/Psychiatric: Mental status is nonverbal and baseline for his poststroke mental status Neurological: The patient awake and opens eyes responds to verbal he does not respond to questions. reports that he is at his baseline poststroke no further neuroexam can be done Course Quality Measures none Orders Category Date Time Status CT Screening NOW Care 02/04/25 17:[address] abdomen pelvis w con Stat Exams 02/04/25 17:14 Ordered XR chest 1V portable Stat Exams 02/04/25 17:13 Completed Blood Culture (Lab) Stat Lab 02/04/25 18:13 Received CBC Stat Lab 02/04/25 18:13 Received Comprehensive Metabolic Panel Stat Lab 02/04/25 18:13 Received Lactate (Lactic Acid) Stat Lab 02/04/25 18:13 Completed Lipase Stat Lab 02/04/25 18:13 Received Troponin I Stat Lab 02/04/25 18:13 Received Urinalysis Stat Lab 02/04/25 17:14 Ordered Urinalysis, C/S if Indicated Stat Lab 02/04/25 17:14 Ordered Venous Blood Gas Stat Lab 02/04/25 18:13 Completed Sodium Chloride 0.9% 1000 ml [Ns] 1,000 ml Med 02/04/25 17:15 Discontinued IV 1,000 mls/hr Vital Signs Vital signs: Vital Signs Temperature 100.2 F 02/04/25 16:11 Pulse Rate 79 02/04/25 16:11 Respiratory Rate 22 H 02/04/25 16:11 Blood Pressure 125/74 02/04/25 16:11 Pulse Oximetry (%) 96 02/04/25 16:11 Oxygen Delivery Method Blow-by 02/04/25 16:11 Oxygen Flow Rate 6 02/04/25 16:11 Abdominal Pain MDM MDM Narrative MDM Narrative:: Patient comes from subacute after he had a stroke and has been there for approximately 4 to 5 months today he has increasing distention of his abdomen and is concerned that he is having abdominal pain as he is evidently wincing or pointing to his belly making her believe that there is some problem there. He has had decreased stooling output and a plain film x-ray today that revealed lots of constipation and possible fecal impaction. Since patient has a temperature 100.2 and concerns for something more going on than just constipation. Get labs and a CT. The patient's care will go to Dr. De La Garza at 1800 hrs. Patient data External records reviewed:: [facility] previous records (I reviewed H&P from 10/24/2024 ) Clinical information provided by:: spouse ( ) Social determinants that could affect healthcare access:: housing (Subacute resident ) Patient has the following chronic illnesses:: CVA 05/2024, seizures, s/p tracheostomy placement because of chronic respiratory failure, s/p G-tube placement, diabetes, hypothyroidism, hx left femoral DVT and PE How is presenting disease/condition affected by chronic disease/condition?: exacerbated by Evaluation data The following diagnostics were reviewed and interpreted by me:: lab results and radiology exam(s) Lab and/or radiology exams considered but not ordered:: None Interpretation Summary: As noted above. Medications / Prescriptions Medications or Prescriptions considered but not ordered:: None Medication administrations:: Medication Administration History Discontinued Medications Sodium Chloride (Ns) 1,000 mls @ 1,000 mls/hr IV .Q1H ONE Stop: 02/04/25 18:14 Last Admin: 02/04/25 17:59 Dose: 1,000 mls/hr Documented By: TM See above Consultations Consultation(s) initiated? (list below): Yes Consultation #1 (Physician, Specialty, Details): I spoke with patients PCP Dr. Ann. States patient has had constipation for several weeks and being treated however no medications have provided relief. Noted abdomen to be more distended today and advised he come here for further evaluation. Time: 17:16 Diagnosis Differential diagnosis abdominal pain: abdominal pain, constipation and small bowel obstruction Most likely diagnosis given after review of the tests above:: Constipation Admission Indicated Admission indicated?: not indicated Explain why admission is indicated or not indicated:: Patient signed out to Dr. De La Garza pending labs, CT, and final disposition. Admission Request Was there a request for admission?: No Disposition Plan Disposition Plan: other (specify) (Patient signed out to Dr. De La Garza. ) Discharge Plan Prescriptions/Referrals Referrals: Boogie Mancia MD [Primary Care Provider] - In 1 week Problem List Clinical Impression: History of stroke, Abdominal pain, Nonverbal, Fever Patient/Caregiver Discharge Instructions Print Language: Nepali
--- NOTE | 2025-02-04 17:13 | XR_ITS ---
Examination: AP chest single view TECHNIQUE: AP portable upright chest single view Exam date and time:: February 04, 2025 1725 hours INDICATIONS: Abdominal and chest pain with distention and fever today FINDINGS: Tracheostomy tube tip 7.4 cm above Sheyla Reduced inspiratory effort No lobar pneumonia or pulmonary edema IMPRESSION: No pneumonia or pulmonary edema
--- NOTE | 2025-02-04 17:14 | XR_ITS ---
Examination: CT abdomen with intravenous contrast CT pelvis with intravenous contrast 2-D coronal reconstructions 2-D sagittal reconstructions Date and time of exam:February 04, 2025 at 2010 hours INDICATIONS: Abdominal pain and congestion constipation today. CTDI: vol (mGy) 15.4 DLP: (mGycm) 958 Technique: Multiple axial sections of the abdomen and pelvis have been obtained. 64 slice high-resolution scanner used. 3 mm axial sections have been obtained, post intravenous injection 60 cc [id number] 2-D sagittal coronal reconstructions 3-D reconstructions Low-dose protocols, adjustment and a KB according to patient size FINDINGS: There is mild elevation left hemidiaphragm Fatty infiltration throughout the liver no focal liver and splenic lesions No gallstones Gastrostomy tube satisfactory position No pancreatic or adrenal mass Large amounts of stool throughout the entire colon IVC filter satisfactory position Multiple right renal calculi, the largest 4 mm Aorta normal size No pericecal inflammatory change No diverticulitis Very large amounts of stool in the rectosigmoid with thickening of the rectal wall Transverse prostate dimension 6 cm No bladder mass Grade 1 spondylolisthesis L5 on S1 with advanced disc narrowing L5-S1 and severe bilateral L5 ganglionic compression secondary to the spondylolisthesis Impression: Large amount of stool throughout the entire colon including rectum Pronounced thickening of the rectal wall, differential would include proctitis, rectal tumor not excluded, recommend direct inspection Multiple nonobstructing right renal calculi
[2025-02-04] MEDS: SODIUM CHLORIDE 0.9% 1000 ML 1,000 ML IV (17:59)
[2025-02-04 18:23] LABS: Base Excess, Venous 7 (-3-3); O2 Saturation, Venous 78 % (96-97); PCO2, Venous 45 mmHg (36-56); PO2, Venous 42 mmHg (15-58); pH, Venous 7.45 (7.33-7.66)
[2025-02-04 18:24] LABS: Lactate (Lactic Acid) 0.7 mMol/L (0.4-2.0)
--- NOTE | 2025-02-04 18:30 | PD.EDADDENDU ---
Emergency Room Addendum Addendum Narrative: 1800: Care assumed from Dr. Ron the previous shift emergency physician. Past medical, surgical, social and family history reviewed. Vitals and home medications reviewed. Results and treatment plan discussed. I will assume the care of the patient at this time and will follow the patient, pending CT abdomen pelvis and labs. Please refer to the emergency department record for history and examination from initial visit. WBC count is normal, VBG is normal, Potassium is 3.2, Troponin is normal, Lipase is normal, UA shows a mild UTI, according to my interpretation. 2134: Notified by the nurse that the patient had a medium bowel movement. Amoxicillin ordered for the UTI. Patient is stable to be discharged back to subacute. 2138: Discussed case with Dr. East. Discussed patients ED course, exam findings, labs, and radiology results. Agrees to accept the patient back to subacute as long as the patient's abdomen is not distended. Patient's abdomen is not distended and is stable to be discharged back to subacute. RADIOLOGY RESULTS: [facility] Report Signed Patient: ABRAM CORONA. Record#: [id number] Birthdate: 1965 Age/Sex: 59 / M Location: [facility] Attending Dr: Ordering Physician: Xavi Ron MD Date of Service: 02/04/25 Procedure(s): CT abdomen pelvis w con Accession Number(s): [id number] cc: Xavi Ron MD; Andrea Harman MD; oBogie Mancia MD~ Examination: CT abdomen with intravenous contrast CT pelvis with intravenous contrast 2-D coronal reconstructions 2-D sagittal reconstructions Date and time of exam:February 04, 2025 at 2010 hours INDICATIONS: Abdominal pain and congestion constipation today. CTDI: vol (mGy) 15.4 DLP: (mGycm) 958 Technique: Multiple axial sections of the abdomen and pelvis have been obtained. 64 slice high-resolution scanner used. 3 mm axial sections have been obtained, post intravenous injection 60 cc [id number] 2-D sagittal coronal reconstructions 3-D reconstructions Low-dose protocols, adjustment and a KB according to patient size FINDINGS: There is mild elevation left hemidiaphragm Fatty infiltration throughout the liver no focal liver and splenic lesions No gallstones Gastrostomy tube satisfactory position No pancreatic or adrenal mass Large amounts of stool throughout the entire colon IVC filter satisfactory position Multiple right renal calculi, the largest 4 mm Aorta normal size No pericecal inflammatory change No diverticulitis Very large amounts of stool in the rectosigmoid with thickening of the rectal wall Transverse prostate dimension 6 cm No bladder mass Grade 1 spondylolisthesis L5 on S1 with advanced disc narrowing L5-S1 and severe bilateral L5 ganglionic compression secondary to the spondylolisthesis Impression: Large amount of stool throughout the entire colon including rectum Pronounced thickening of the rectal wall, differential would include proctitis, rectal tumor not excluded, recommend direct inspection Multiple nonobstructing right renal calculi Dictated By: Andrea Harman MD Signed By: <Electronically signed by Andrea Harman MD in OV> 02/04/252038
[2025-02-04 18:35] LABS: Basophils # (Auto) 0.1 Thou/mm3 (0.0-0.2); Basophils % (Auto) 1 % (0-2.5); Eosinophils # (Auto) 0.1 Thou/mm3 (0.0-0.5); Eosinophils % (Auto) 1 % (0-10); Hematocrit 33.4 % (41.0-53.0); Hemoglobin 10.9 g/dL (13.5-16.0); Immature Granulocytes % (Auto) 0 % (0-0); Immature Granulocytes Auto 0.03 Thou/mm3 (0.00-0.00); Lymphocytes # (Auto) 1.5 Thou/mm3 (1.0-4.8); Lymphocytes % (Auto) 15 % (10-50); Mean Corpuscular HGB Conc 32.6 g/dl (31.0-37.0); Mean Corpuscular Hemoglobin 31.4 pg (25.0-35.0); Mean Corpuscular Volume 96 fL (80-100); Monocytes # (Auto) 0.8 Thou/mm3 (0.0-0.8); Monocytes % (Auto) 9 % (0-12); Neutrophils # (Auto) 7.3 Thou/mm3 (1.8-7.7); Neutrophils % (Auto) 75 % (37-80); Nucleated Red Blood Cell % 0 /100 WBC (0); Platelet Count 293 Thou/mm3 (140-440); RDW Standard Deviation 49.9 fL (35.1-43.9); Red Blood Count 3.47 Miln/mm3 (4.50-5.90); White Blood Count 9.8 Thou/mm3 (3.8-10.6)
[2025-02-04 18:42] LABS: Alanine Aminotransferase 59 U/L (10-49); Albumin, Serum 3.7 gm/dL (3.4-4.8); Albumin/Globulin Ratio 1.2 (1.2-2.2); Alkaline Phosphatase 101 U/L (46-116); Anion Gap 7 (7-16); Aspartate Amino Transferase 51 U/L (0-34); BUN/Creatinine Ratio 15 Ratio (12-20); Bilirubin,Total 0.4 mg/dL (0.3-1.2); Blood Urea Nitrogen 15 mg/dL (9-23); Calcium 8.6 mg/dL (8.3-10.6); Calcium (Corrected) 8.8 mg/dL (8.5-10.1); Chloride 105 mMol/L (98-107); Glucose 118 mg/dL (74-106); Lipase 52 U/L (12-53); Osmolality,Calculated 284 (275-295); Potassium 3.2 mMol/L (3.4-5.1); Sodium 142 mMol/L (136-145); Total Protein 6.7 gm/dL (5.7-8.2); Troponin I < 0.002 ng/mL (0.0-0.045); eGFR > 60 See Note
--- NOTE | 2025-02-04 19:43 | PC.NURSE ---
ASSUMED CARE OF PATIENT, PT SENT FROM SUB ACUTE FOR CONSTIPATION, NO EMEMA GIVEN. PT WAITING FOR CT SCAN, AT BEDSIDE, WILL CONTINUE WITH PLAN OF CARE
[2025-02-04 20:00] LABS: Collection Type, Urine Catheter; RBC,Urine 0 /hpf (0-3)
[2025-02-04 20:49] VITALS: PULSE 63; RESP 18; O2SAT 100
[2025-02-04 20:51] LABS: Bacteria,Urine Rare; Bilirubin,Urine Negative (Negative); Blood,Urine Negative (Negative); Clarity,Urine Turbid (Clear/Hazy); Color,Urine Yellow (Lt Yel-Yel); Glucose, Urine Negative (Negative); Ketones,Urine Negative (Negative); Leukocyte Esterase,Urine Positive (Negative); Nitrite,Urine Positive (Negative); Protein,Urine Negative (Neg - Trace); Specific Gravity,Urine 1.015 (1.001-1.035); Squamous Epithelial Cell,Urine < 1 /hpf (0-5); Urobilinogen,Urine Negative mg/dL (0.0-1.0); WBC,Urine 19 /hpf (0-5)
[2025-02-04 20:52] LABS: Culture Indicated,Urine Yes
[2025-02-04 21:05] VITALS: BP 135/80; PULSE 70; RESP 22; TEMP 37.2; O2SAT 97
--- NOTE | 2025-02-04 21:10 | PC.NURSE ---
PATIENTS BRIEF WAS CHANGED WITH STOOL NOTED IN BRIEF, PATIENTS LINEN AND BRIEF WERE CHANGED
--- NOTE | 2025-02-04 22:13 | PC.NURSE ---
REPORT GIVEN TO PANCHO AT SUBACUTE,PT WILL BE RETURNING
[2025-02-04 22:17] VITALS: BP 123/75; PULSE 63; RESP 18; O2SAT 100
== END 2025-02-04 22:34 | disposition skilled nursing facility (03) ==
PROVIDERS: Emergency Medicine; Emergency Provider Emergency Medicine; PCP Family Medicine
DX: N20.0 Calculus of kidney (principal); N39.0 Urinary tract infection, site not specified; J96.10 Chronic respiratory failure, unspecified whether with hypoxia or hypercapnia; Z86.73 Personal history of transient ischemic attack (TIA), and cerebral infarction without residual deficits; E11.9 Type 2 diabetes mellitus without complications; E03.9 Hypothyroidism, unspecified; Z93.1 Gastrostomy status; Z93.0 Tracheostomy status; Z86.718 Personal history of other venous thrombosis and embolism
CPT/HCPCS: 36415; 71045; 74177; 80053; 81001; 82803; 83605; 83690; 84484; 85025; 87040; 87086; 96361; 96365; 99285; A4649; J0713; J7030; Q9967

== ENCOUNTER 2025-05-12 10:24 | Inpatient (IN) | payer MEDICAID, SELFPAY ==
[2025-05-12] MEDS: ACETAMINOPHEN 325 MG TABLET 650 MG GT ×2 (12:00→21:10)
--- NOTE | 2025-05-12 15:48 | PC.SS ---
Resident DC from subacute care and admitted to SNF care due to resident longer having a trach in place. He is FULL CODE with full treatment. Resident has GT in place for medication and nutrition. Resident is alert with cognitive impairment, he is able to make needs known. Resident decision maker is his Jen, resident unable to make decisions for self due to cognitive impairment related to him having to be reminded and redirected daily. Resident has vision impairment, he has partials, hearing is adequate. RP states he has history of anxiety, he is presybeterian and will accept spiritual care visits from senior web engineer.
[2025-05-12 17:30] VITALS: BP 121/66; PULSE 52; RESP 18; TEMP 36.6; O2SAT 95
--- NOTE | 2025-05-12 17:32 | PC.NURSE ---
Resident on continuous pulse ox and it has been noted that resident's HR at 50s, remains awake, stable and verbally responsive. Currently on Amiodarone [address] East and was seen by MD today, no new orders made
--- NOTE | 2025-05-12 18:35 | ESHP_ITS ---
Physical exam Physical Exam Vital signs: Temp Pulse Resp BP Pulse Ox O2 Del Method 98.6 F 65 19 133/66 H 93 L Room Air 05/24/25 12:00 05/24/25 18:45 05/24/25 18:45 05/24/25 12:00 05/24/25 18:45 05/24/25 12:00 Constitutional Constitutional: no acute distress and thin Comments: Pt bed bound with VSS and awake HEENT Exam Head: Present normocephalic and atraumatic ENT: Present mucous membranes moist, oropharynx clear, nares patent and external ear normal Neck Exam Comments: NAD Chest/Breast/Axilla Exam Comments: NAD Respiratory Exam Respiratory: Present chest non-tender, lungs clear, normal breath sounds and no resp distress Cardiovascular Exam Cardiovascular: Present RRR, S1 and S2 Abdominal Exam Abdominal: Present soft and normoactive bowel sounds Rectal Exam Comments: deferred Exam Comments: deferred Extremities Exam Extremities: Present pulses intact and normal capillary refill Comments: moves all extremities minimally, more his hands, Back/Spine/Pelvis Exam Comments: NAD Neurological Exam Neurological: Present alert Comments: bed bound with gen. weakness more pronounced in lower extremities L>R. Awake and alert and seems to recognize persons but not aware of place or time. Responds to simple commands with yes or no and appropreately. Incontinent of B & B. Fully dependent for care Rehabilitation potential Diagnosis (1) Acute arterial ischemic stroke, vertebrobasilar, brainstem: Status: Chronic Qualifiers: Laterality: left Qualified Code(s): I63.212 - Cerebral infarction due to unspecified occlusion or stenosis of left vertebral artery; I63.22 - Cerebral infarction due to unspecified occlusion or stenosis of basilar artery (2) Seizures, generalized convulsive: Status: Chronic (3) Chronic respiratory failure: Status: Chronic Qualifiers: Respiratory failure complication: unspecified whether with hypoxia or hypercapnia Qualified Code(s): J96.10 - Chronic respiratory failure, unspecified whether with hypoxia or hypercapnia (4) Altered glucose metabolism due to diabetes: Status: Chronic (5) Encephalopathy: Status: Chronic (6) Decubital ulcer: Status: Chronic (7) G tube feedings: Status: Chronic Assessment & Plan Assessment: Pt seems to be fairly stable with all above diagnosis and with limited /guarded prognosis for recovery to independent living and needs all support. Family supportive Denies any pain. VSS 11-11-24 Met with family in pt's room and updated them as well as answered all questions. Reiterated limited prognosis for independent living. Neurology input on prognostic outlook and medication review followed. Repeat CT head ordered by neurologist was done and results discussed with the Neurologist who confirmed stable changes and recommended no change on medicine. This was updated with the family the No new issues , Talked with family at bedside and updated them. VSS. Started on Melatonin q hs 3 mgs prn to facilitate sleep. Pt had fever due to E. faecalis UTI and started on Vancomycin 1gm IVPB q 12 hourly on 12-28-24 Responded well and cleared. Family very actitvely participating in patient care Some constipation concerns, was given Lactulose . Being monitored but pt did not respond to treatment and was sent to the ER were he finally did poop and stabilized and returned to the [facility] at night doing well on the above treatment protocol. Now requiring Lactulose and occasional suppository for Constipation. Tolerating feeding. VSS. No new issues. Bowel movements somewhat improved on increasing Lactulose . Stable status. Pt not to be left on Passe' [place] speaking valve unattended since he cannote operate it himself. No new issues. looks comfortable. Family mostly visits daily and very supportive. Pt very stable and seems relaxed Tracheostomy capping trials initiated. Tolerating well. Family considering possibility of taking him home without the tracheostomy. Tracheostomy discontinued and family content. Pt maintaining excellent O 2 satu rations on room air in the high nineties. Pt's status changed to SNF. VSS. No new issues. Plan: Full support medical/nutritional and emotional towards maintaining some quality of life Prognosis If patient not informed of condion, describe why: Pt not cognizent of his ailment and not able to take any decisions Goals Full support and ensure no discomfort or pain HPI History of Present Illness HPI: Pt a 60 yrs of age male admitted to SNF at [facility] for ferry terminal agent care with diagnosis of : Acute arterial ischemic stroke, vertebrobasilar, brainstem, left ; Feeding G tube for dyspahagia and risk for aspiration; Decubitus over coccyx; Seizures generalzed; DM-II; Encephalopathy metabolic , improving; Left femoral vein DVT/ multiple subsegmental pulmonary emboli; hypothyroidism.
--- NOTE | 2025-05-12 19:28 | PC.NURSE ---
Resident doesn't have any trach at this time. Doesn't meet the criteria under sub acute services. Resident was discharged and admitted under SNF .
[2025-05-12] MEDS: ATORVASTATIN 40 MG TABLET GT (21:07)
[2025-05-12] MEDS: LACTULOSE 10 GM/15 ML SOLUTION 20 GM GT (21:07)
[2025-05-12] MEDS: DEX/HYPRO/GLY ARTIFICAL TEARS 225 DROP/15 ML BTL BOTH EYES (21:07)
[2025-05-12] MEDS: APIXABAN 5 MG TABLET GT (21:07)
[2025-05-12] MEDS: MELATONIN 5 MG TABLET 3 MG GT (21:08)
[2025-05-12] MEDS: SENNOSIDES 8.6 MG TABLET GT (21:09)
[2025-05-13] VITALS (7 sets, daily range): BP systolic 118–132; BP diastolic 66–74; PULSE 47–68; RESP 18; TEMP 36.4–36.7; O2SAT 98–99
[2025-05-13] MEDS: LEVOTHYROXINE SODIUM 125 MCG TABLET 200 MCG GT (05:46)
[2025-05-13] MEDS: APIXABAN 5 MG TABLET GT ×2 (08:38→20:42)
[2025-05-13] MEDS: CHOLECALCIFEROL (VITAMIN D3) 25 MCG TABLET PO (08:39)
[2025-05-13] MEDS: CLOPIDOGREL BISULFATE 75 MG TABLET GT (08:39)
[2025-05-13] MEDS: DEX/HYPRO/GLY ARTIFICAL TEARS 225 DROP/15 ML BTL BOTH EYES ×2 (08:39→20:42)
[2025-05-13] MEDS: LACTULOSE 10 GM/15 ML SOLUTION 20 GM GT ×2 (08:40→20:43)
[2025-05-13] MEDS: SENNOSIDES 8.6 MG TABLET GT ×2 (08:42→20:44)
[2025-05-13] MEDS: ACETAMINOPHEN 325 MG TABLET 650 MG GT ×2 (08:43→20:45)
--- NOTE | 2025-05-13 15:44 | PC.SS ---
Resident was in room laying in bed asking to get out of bed and attend activities. Resident is seen in activities room via jose daniel chair, he is in good spirits socializing with visual merchandising coordinator and this SSD. Resident continues to do well on room air.
[2025-05-13] MEDS: ATORVASTATIN 40 MG TABLET GT (20:42)
[2025-05-13] MEDS: MELATONIN 5 MG TABLET 3 MG GT (20:44)
[2025-05-14] VITALS (7 sets, daily range): BP systolic 117–155; BP diastolic 68–77; PULSE 52–61; RESP 18–20; TEMP 36.1–36.9; O2SAT 97–98; BMI 21.0
[2025-05-14] MEDS: LEVOTHYROXINE SODIUM 125 MCG TABLET 200 MCG GT (05:24)
[2025-05-14] MEDS: APIXABAN 5 MG TABLET GT ×2 (08:26→20:34)
[2025-05-14] MEDS: CHOLECALCIFEROL (VITAMIN D3) 25 MCG TABLET PO (08:26)
[2025-05-14] MEDS: CLOPIDOGREL BISULFATE 75 MG TABLET GT (08:27)
[2025-05-14] MEDS: DEX/HYPRO/GLY ARTIFICAL TEARS 225 DROP/15 ML BTL BOTH EYES ×2 (08:27→20:34)
[2025-05-14] MEDS: LACTULOSE 10 GM/15 ML SOLUTION 20 GM GT ×2 (08:28→20:34)
[2025-05-14] MEDS: SENNOSIDES 8.6 MG TABLET GT ×2 (08:28→21:00)
--- NOTE | 2025-05-14 09:58 | PC.SS ---
This SSD faxed request for services notes for resident appointment at [facility] dated 05/06.
--- NOTE | 2025-05-14 16:15 | PC.SS ---
This SSD spoke with resident RP regarding DC planning, SHANNAN Li stated after speaking with family she has decided to be open to a possible admission to half-way. This SSD will send referral to half-way facilities in [facility] to be closer to family. This SSD will keep RP and resident updated of progress, and will assist with all DC planning.
--- NOTE | 2025-05-14 16:26 | PC.NURSE ---
Resident in 105 he went outside with the RNA and he did rom with a little bit of assistance. we had conversation and talked about life. He really engaged in the conversation and was happy.
[2025-05-14] MEDS: INSULIN REGULAR, HUMAN 100 UNIT/ML VIAL SC (17:28)
[2025-05-14] MEDS: ATORVASTATIN 40 MG TABLET GT (20:34)
[2025-05-14] MEDS: MELATONIN 5 MG TABLET 3 MG GT (20:34)
[2025-05-15] VITALS: BP 126/67; PULSE 84; RESP 20; TEMP 36.2
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
[2025-05-15] MEDS: LEVOTHYROXINE SODIUM 125 MCG TABLET 200 MCG GT (05:30)
[2025-05-15] MEDS: ACETAMINOPHEN 325 MG TABLET 650 MG GT ×2 (05:30→12:00)
[2025-05-15 06:00] VITALS: BP 138/72; PULSE 56; RESP 20; TEMP 36.3; O2SAT 94
[2025-05-15 06:36] VITALS: PULSE 87; RESP 18; O2SAT 93
[2025-05-15 08:03] VITALS: BP 118/67; PULSE 60
[2025-05-15] MEDS: AMIODARONE 200 MG TABLET 400 MG GT (08:03)
[2025-05-15] MEDS: APIXABAN 5 MG TABLET GT ×2 (08:03→21:11)
[2025-05-15] MEDS: DEX/HYPRO/GLY ARTIFICAL TEARS 225 DROP/15 ML BTL BOTH EYES ×2 (08:03→21:11)
[2025-05-15] MEDS: CLOPIDOGREL BISULFATE 75 MG TABLET GT (08:03)
[2025-05-15] MEDS: CHOLECALCIFEROL (VITAMIN D3) 25 MCG TABLET PO (08:03)
--- NOTE | 2025-05-15 09:55 | XR_ITS ---
Examination: Video esophagram Modified barium swallow 67 spot fluoroscopic films of the soft tissue lateral neck with swelling Date and time: May 15, 2025 1019 hours INDICATIONS: Chronic respiratory failure status post removal tracheostomy difficulty swallowing TECHNIQUE AND FINDINGS: Multiple barium mixtures administered Aspiration with nectar barium IMPRESSION: Positive for pharyngeal aspiration
--- NOTE | 2025-05-15 14:27 | PC.SS ---
Resident is here for skilled care on room air with GT in place for medication and nutrition. Resident is represented by his Jen, he is able to make his needs known, he requires continues reminders as he forgets information given to him. Resident does not have POA in place, RP aware this service is provided in facility, resident is unable to participate in the process as he forgets and requires continuous queuing. Resident will remain in current care until an appropriate bed is available in lower level care in [facility]. He will continue to have all skilled care needs met by staff. This SSD will make daily contact with resident and will monitor for changes in mood and behavior.
[2025-05-15 14:59] VITALS: BMI 12.0
--- NOTE | 2025-05-15 17:59 | ESPR_ITS ---
Progress Note - SubAcute DIAGNOSIS (1) Acute arterial ischemic stroke, vertebrobasilar, brainstem: Status: Chronic Qualifiers: Laterality: left Qualified Code(s): I63.212 - Cerebral infarction due to unspecified occlusion or stenosis of left vertebral artery; I63.22 - Cerebral infarction due to unspecified occlusion or stenosis of basilar artery (2) Seizures, generalized convulsive: Status: Chronic (3) Chronic respiratory failure: Status: Chronic Qualifiers: Respiratory failure complication: unspecified whether with hypoxia or hypercapnia Qualified Code(s): J96.10 - Chronic respiratory failure, unspecified whether with hypoxia or hypercapnia (4) Altered glucose metabolism due to diabetes: Status: Chronic (5) Encephalopathy: Status: Chronic (6) Decubital ulcer: Status: Chronic (7) G tube feedings: Status: Chronic SUBJECTIVE Fever:: none Shortness of Breath:: none Pain:: none OBJECTIVE Most recent vital signs: Last Vital Signs Temp 97.3 F 05/15/25 06:00 Pulse 60 05/15/25 08:03 Resp 18 05/15/25 06:36 BP 118/67 05/15/25 08:03 Pulse Ox 93 L 05/15/25 06:36 O2 Del Method Room Air 05/15/25 06:00 Speech:: mouths words (sometimes) Answers questions:: sometimes (mostly by gestures) Respiratory:: lungs clear Cardiovascular: RRR Abdomen: soft Feeding per:: G tube ASSESSMENT & PLAN Assessment: Pt seems to be fairly stable with all above diagnosis and with limited /guarded prognosis for recovery to independent living and needs all support. Family supportive Denies any pain. VSS 11-11-24 Met with family in pt's room and updated them as well as answered all questions. Reiterated limited prognosis for independent living. Neurology input on prognostic outlook and medication review followed. Repeat CT head ordered by neurologist was done and results discussed with the Neurologist who confirmed stable changes and recommended no change on medicine. This was updated with the family the No new issues , Talked with family at bedside and updated them. VSS. Started on Melatonin q hs 3 mgs prn to facilitate sleep. Pt had fever due to E. faecalis UTI and started on Vancomycin 1gm IVPB q 12 hourly on 12-28-24 Responded well and cleared. Family very actitvely participating in patient care Some constipation concerns, was given Lactulose . Being monitored but pt did not respond to treatment and was sent to the ER were he finally did poop and stabilized and returned to the [facility] at night doing well on the above treatment protocol. Now requiring Lactulose and occasional suppository for Constipation. Tolerating feeding. VSS. No new issues. Bowel movements somewhat improved on increasing Lactulose . Stable status. Pt not to be left on Passe' [place] speaking valve unattended since he cannote operate it himself. No new issues. looks comfortable. Family mostly v isits daily and very supportive. Pt very stable and seems relaxed Tracheostomy capping trials initiated. Tolerating well. Family considering possibility of taking him home without the tracheostomy. Tracheostomy discontinued and family content. Pt maintaining excellent O 2 saturations on room air in the high nineties. Pt's status changed to SNF. VSS Plan: Full support medical/nutritional and emotional towards maintaining some quality of life
[2025-05-15 19:45] VITALS: PULSE 59; RESP 18; O2SAT 95
[2025-05-15] MEDS: SENNOSIDES 8.6 MG TABLET GT (21:11)
[2025-05-15] MEDS: ATORVASTATIN 40 MG TABLET GT (21:11)
[2025-05-15] MEDS: LACTULOSE 10 GM/15 ML SOLUTION 20 GM GT (21:11)
[2025-05-15] MEDS: MELATONIN 5 MG TABLET 3 MG GT (21:11)
[2025-05-16] VITALS (7 sets, daily range): BP systolic 100–128; BP diastolic 63–71; PULSE 48–58; RESP 18–22; TEMP 36.3–36.7; O2SAT 95–99
[2025-05-16] MEDS: LEVOTHYROXINE SODIUM 125 MCG TABLET 200 MCG GT (05:23)
[2025-05-16] MEDS: CHOLECALCIFEROL (VITAMIN D3) 25 MCG TABLET PO (08:21)
[2025-05-16] MEDS: APIXABAN 5 MG TABLET GT ×2 (08:21→21:04)
[2025-05-16] MEDS: CLOPIDOGREL BISULFATE 75 MG TABLET GT (08:22)
[2025-05-16] MEDS: LACTULOSE 10 GM/15 ML SOLUTION 20 GM GT ×2 (08:23→21:04)
[2025-05-16] MEDS: DEX/HYPRO/GLY ARTIFICAL TEARS 225 DROP/15 ML BTL BOTH EYES ×2 (08:23→21:04)
[2025-05-16] MEDS: SENNOSIDES 8.6 MG TABLET GT ×2 (08:23→21:03)
[2025-05-16] MEDS: ACETAMINOPHEN 325 MG TABLET 650 MG GT (15:40)
[2025-05-16] MEDS: INSULIN REGULAR, HUMAN 100 UNIT/ML VIAL SC (17:07)
[2025-05-16] MEDS: ATORVASTATIN 40 MG TABLET GT (21:04)
[2025-05-16] MEDS: MELATONIN 5 MG TABLET 3 MG GT (21:04)
[2025-05-17] MEDS: LEVOTHYROXINE SODIUM 125 MCG TABLET 200 MCG GT (05:22)
[2025-05-17] MEDS: INSULIN REGULAR, HUMAN 100 UNIT/ML VIAL SC ×2 (05:40→17:53)
[2025-05-17 07:11] VITALS: PULSE 48; RESP 17; O2SAT 96
[2025-05-17 08:30] VITALS: BP 160/94; PULSE 47
[2025-05-17] MEDS: CLOPIDOGREL BISULFATE 75 MG TABLET GT (08:31)
[2025-05-17] MEDS: LACTULOSE 10 GM/15 ML SOLUTION 20 GM GT ×2 (08:31→20:32)
[2025-05-17] MEDS: APIXABAN 5 MG TABLET GT ×2 (08:31→20:32)
[2025-05-17] MEDS: DEX/HYPRO/GLY ARTIFICAL TEARS 225 DROP/15 ML BTL BOTH EYES ×2 (08:31→20:32)
[2025-05-17] MEDS: CHOLECALCIFEROL (VITAMIN D3) 25 MCG TABLET PO (08:31)
[2025-05-17] MEDS: SENNOSIDES 8.6 MG TABLET GT ×2 (08:32→20:32)
[2025-05-17] MEDS: ACETAMINOPHEN 325 MG TABLET 650 MG GT (10:17)
[2025-05-17] MEDS: ATORVASTATIN 40 MG TABLET GT (20:32)
[2025-05-17] MEDS: MELATONIN 5 MG TABLET 3 MG GT (20:32)
[2025-05-18] VITALS (7 sets, daily range): BP systolic 115–144; BP diastolic 63–74; PULSE 54–69; RESP 18–19; TEMP 36.3–36.8; O2SAT 96–99
[2025-05-18] MEDS: LEVOTHYROXINE SODIUM 125 MCG TABLET 200 MCG GT (05:41)
[2025-05-18] MEDS: INSULIN REGULAR, HUMAN 100 UNIT/ML VIAL SC ×2 (05:52→17:43)
[2025-05-18] MEDS: CLOPIDOGREL BISULFATE 75 MG TABLET GT (10:00)
[2025-05-18] MEDS: DEX/HYPRO/GLY ARTIFICAL TEARS 225 DROP/15 ML BTL BOTH EYES ×2 (10:00→21:16)
[2025-05-18] MEDS: CHOLECALCIFEROL (VITAMIN D3) 25 MCG TABLET PO (10:00)
[2025-05-18] MEDS: APIXABAN 5 MG TABLET GT ×2 (10:00→21:16)
[2025-05-18] MEDS: AMIODARONE 200 MG TABLET 400 MG GT (10:00)
[2025-05-18] MEDS: LACTULOSE 10 GM/15 ML SOLUTION 20 GM GT ×2 (10:00→21:16)
[2025-05-18] MEDS: SENNOSIDES 8.6 MG TABLET GT ×2 (10:00→21:21)
--- NOTE | 2025-05-18 16:21 | PC.SS ---
This SSD sent referral to halfway for facilities for short term placement for rehab services. This SSD will keep RP and resident updated of progress.
[2025-05-18] MEDS: ATORVASTATIN 40 MG TABLET GT (21:16)
[2025-05-18] MEDS: MELATONIN 5 MG TABLET 3 MG GT (21:19)
[2025-05-19] VITALS (8 sets, daily range): BP systolic 108–157; BP diastolic 65–74; PULSE 49–66; RESP 18–20; TEMP 36.6–36.8; O2SAT 94–97
[2025-05-19] MEDS: LEVOTHYROXINE SODIUM 125 MCG TABLET 200 MCG GT (05:19)
[2025-05-19] MEDS: INSULIN REGULAR, HUMAN 100 UNIT/ML VIAL SC ×2 (05:54→17:45)
[2025-05-19] MEDS: AMIODARONE 200 MG TABLET 400 MG GT (08:14)
[2025-05-19] MEDS: CHOLECALCIFEROL (VITAMIN D3) 25 MCG TABLET PO (08:15)
[2025-05-19] MEDS: CLOPIDOGREL BISULFATE 75 MG TABLET GT (08:15)
[2025-05-19] MEDS: APIXABAN 5 MG TABLET GT ×2 (08:15→20:47)
[2025-05-19] MEDS: DEX/HYPRO/GLY ARTIFICAL TEARS 225 DROP/15 ML BTL BOTH EYES ×2 (08:15→20:48)
[2025-05-19] MEDS: LACTULOSE 10 GM/15 ML SOLUTION 20 GM GT ×2 (08:16→20:48)
[2025-05-19] MEDS: SENNOSIDES 8.6 MG TABLET GT ×2 (08:16→20:49)
[2025-05-19] MEDS: ACETAMINOPHEN 325 MG TABLET 650 MG GT (11:45)
--- NOTE | 2025-05-19 18:21 | PD.SAPROG ---
Progress Note - SubAcute DIAGNOSIS (1) Acute arterial ischemic stroke, vertebrobasilar, brainstem: Status: Chronic Qualifiers: Laterality: left Qualified Code(s): I63.212 - Cerebral infarction due to unspecified occlusion or stenosis of left vertebral artery; I63.22 - Cerebral infarction due to unspecified occlusion or stenosis of basilar artery (2) Seizures, generalized convulsive: Status: Chronic (3) Chronic respiratory failure: Status: Chronic Qualifiers: Respiratory failure complication: unspecified whether with hypoxia or hypercapnia Qualified Code(s): J96.10 - Chronic respiratory failure, unspecified whether with hypoxia or hypercapnia (4) Altered glucose metabolism due to diabetes: Status: Chronic (5) Encephalopathy: Status: Chronic (6) Decubital ulcer: Status: Chronic (7) G tube feedings: Status: Chronic SUBJECTIVE Fever:: none Shortness of Breath:: none Pain:: none OBJECTIVE Most recent vital signs: Last Vital Signs Temp 98.1 F 05/19/25 17:57 Pulse 57 L 05/19/25 17:57 Resp 18 05/19/25 17:57 BP 120/70 05/19/25 17:57 Pulse Ox 96 05/19/25 14:35 O2 Del Method Room Air 05/19/25 06:00 Speech:: mouths words (sometimes) Answers questions:: sometimes (mostly by gestures) Respiratory:: lungs clear Cardiovascular: RRR Abdomen: soft Feeding per:: G tube ASSESSMENT & PLAN Assessment: Pt seems to be fairly stable with all above diagnosis and with limited /guarded prognosis for recovery to independent living and needs all support. Family supportive Denies any pain. VSS 11-11-24 Met with family in pt's room and updated them as well as answered all questions. Reiterated limited prognosis for independent living. Neurology input on prognostic outlook and medication review followed. Repeat CT head ordered by neurologist was done and results discussed with the Neurologist who confirmed stable changes and recommended no change on medicine. This was updated with the family the No new issues , Talked with family at bedside and updated them. VSS. Started on Melatonin q hs 3 mgs prn to facilitate sleep. Pt had fever due to E. faecalis UTI and started on Vancomycin 1gm IVPB q 12 hourly on 12-28-24 Responded well and cleared. Family very actitvely participating in patient care Some constipation concerns, was given Lactulose . Being monitored but pt did not respond to treatment and was sent to the ER were he finally did poop and stabilized and returned to the [facility] at night doing well on the above treatment protocol. Now requiring Lactulose and occasional suppository for Constipation. Tolerating feeding. VSS. No new issues. Bowel movements somewhat improved on increasing Lactulose . Stable status. Pt not to be left on Passe' [place] speaking valve unattended since he cannote operate it himself. No new issues. looks comfortable. Family mostly visits daily and very supportive. Pt very stable and seems relaxed Tracheostomy capping trials initiated. Tolerating well. Family considering possibility of taking him home without the tracheostomy. Tracheostomy discontinued and family content. Pt maintaining excellent O 2 saturations on room air in the high nineties. Pt's status changed to SNF. VSS. No new issues. Plan: Full support medical/nutritional and emotional towards maintaining some quality of life
[2025-05-19] MEDS: ATORVASTATIN 40 MG TABLET GT (20:48)
[2025-05-19] MEDS: MELATONIN 5 MG TABLET 3 MG GT (20:49)
[2025-05-20] VITALS (7 sets, daily range): BP systolic 121–132; BP diastolic 66–78; PULSE 45–76; RESP 18–20; TEMP 36.1–36.5; O2SAT 97–98
[2025-05-20] MEDS: LEVOTHYROXINE SODIUM 125 MCG TABLET 200 MCG GT (05:39)
[2025-05-20] MEDS: INSULIN REGULAR, HUMAN 100 UNIT/ML VIAL SC ×2 (05:39→17:04)
[2025-05-20] MEDS: APIXABAN 5 MG TABLET GT ×2 (08:25→21:05)
[2025-05-20] MEDS: CLOPIDOGREL BISULFATE 75 MG TABLET GT (08:26)
[2025-05-20] MEDS: DEX/HYPRO/GLY ARTIFICAL TEARS 225 DROP/15 ML BTL BOTH EYES ×2 (08:26→21:05)
[2025-05-20] MEDS: LACTULOSE 10 GM/15 ML SOLUTION 20 GM GT ×2 (08:26→21:05)
[2025-05-20] MEDS: CHOLECALCIFEROL (VITAMIN D3) 25 MCG TABLET PO (08:26)
[2025-05-20] MEDS: SENNOSIDES 8.6 MG TABLET GT ×2 (08:27→21:04)
[2025-05-20] MEDS: ACETAMINOPHEN 325 MG TABLET 650 MG GT (12:50)
[2025-05-20] MEDS: MELATONIN 5 MG TABLET 3 MG GT (21:05)
[2025-05-20] MEDS: ATORVASTATIN 40 MG TABLET GT (21:05)
[2025-05-21] VITALS (7 sets, daily range): BP systolic 112–130; BP diastolic 65–82; PULSE 56–97; RESP 18–20; TEMP 36.1–36.8; O2SAT 96–97
[2025-05-21] MEDS: LEVOTHYROXINE SODIUM 125 MCG TABLET 200 MCG GT (05:48)
[2025-05-21] MEDS: INSULIN REGULAR, HUMAN 100 UNIT/ML VIAL SC ×2 (05:49→17:04)
[2025-05-21] MEDS: AMIODARONE 200 MG TABLET 400 MG GT (08:38)
[2025-05-21] MEDS: LACTULOSE 10 GM/15 ML SOLUTION 20 GM GT ×2 (08:39→21:08)
[2025-05-21] MEDS: DEX/HYPRO/GLY ARTIFICAL TEARS 225 DROP/15 ML BTL BOTH EYES ×2 (08:39→21:08)
[2025-05-21] MEDS: CLOPIDOGREL BISULFATE 75 MG TABLET GT (08:39)
[2025-05-21] MEDS: CHOLECALCIFEROL (VITAMIN D3) 25 MCG TABLET PO (08:39)
[2025-05-21] MEDS: APIXABAN 5 MG TABLET GT ×2 (08:39→21:07)
[2025-05-21] MEDS: SENNOSIDES 8.6 MG TABLET GT ×2 (08:40→21:08)
[2025-05-21] MEDS: ACETAMINOPHEN 325 MG TABLET 650 MG GT (13:30)
[2025-05-21] MEDS: ATORVASTATIN 40 MG TABLET GT (21:07)
[2025-05-21] MEDS: MELATONIN 3 MG TABLET GT (21:08)
[2025-05-22] VITALS (7 sets, daily range): BP systolic 123–144; BP diastolic 68–78; PULSE 45–68; RESP 18–20; TEMP 36.3–36.7; O2SAT 92–99
[2025-05-22] MEDS: LEVOTHYROXINE SODIUM 125 MCG TABLET 200 MCG GT (05:19)
[2025-05-22] MEDS: INSULIN REGULAR, HUMAN 100 UNIT/ML VIAL SC ×2 (05:44→17:36)
[2025-05-22] MEDS: CHOLECALCIFEROL (VITAMIN D3) 25 MCG TABLET PO (08:21)
[2025-05-22] MEDS: CLOPIDOGREL BISULFATE 75 MG TABLET GT (08:21)
[2025-05-22] MEDS: APIXABAN 5 MG TABLET GT ×2 (08:21→21:04)
[2025-05-22] MEDS: DEX/HYPRO/GLY ARTIFICAL TEARS 225 DROP/15 ML BTL BOTH EYES ×2 (08:21→21:04)
[2025-05-22] MEDS: SENNOSIDES 8.6 MG TABLET GT ×2 (08:22→21:09)
[2025-05-22] MEDS: LACTULOSE 10 GM/15 ML SOLUTION 20 GM GT ×2 (08:22→21:04)
[2025-05-22] MEDS: ACETAMINOPHEN 325 MG TABLET 650 MG GT ×2 (08:23→21:15)
--- NOTE | 2025-05-22 11:34 | PC.PT ---
RNA/WEB SYSTEMS DEVELOPER program 1lb weight on BUE/BLE as tolerated.
--- NOTE | 2025-05-22 15:26 | PC.SS ---
Resident missing clothing has been replaced by facility, all items have been labeled and added to inventory list. SHANNAN Barth made aware all items have been replaced.
--- NOTE | 2025-05-22 15:39 | PC.SS ---
Resident remains on room air and GT in place for medication and nutrition. He is able to make needs known, his Jen Barth is his teleservices representative. He does not have POA in place, Jen is aware this service is provide in house, resident is unable to participate due to cognitive impairment with needing constant reminders. Resident will remain in current care until appropriate bed is made available to lower level of care SNF. This SSD will continue to make daily contact with resident assist with DC planning and will monitor for changes in mood and behavior.
[2025-05-22] MEDS: ATORVASTATIN 40 MG TABLET GT (21:04)
[2025-05-22] MEDS: MELATONIN 3 MG TABLET GT (21:05)
[2025-05-23] VITALS (7 sets, daily range): BP systolic 127–144; BP diastolic 66–76; PULSE 51–58; RESP 16–20; TEMP 36.2–36.7; O2SAT 94–100
[2025-05-23] MEDS: LEVOTHYROXINE SODIUM 125 MCG TABLET 200 MCG GT (06:08)
[2025-05-23] MEDS: INSULIN REGULAR, HUMAN 100 UNIT/ML VIAL SC ×3 (06:09→17:20)
[2025-05-23] MEDS: DEX/HYPRO/GLY ARTIFICAL TEARS 225 DROP/15 ML BTL BOTH EYES ×2 (08:42→21:03)
[2025-05-23] MEDS: APIXABAN 5 MG TABLET GT ×2 (08:42→21:03)
[2025-05-23] MEDS: CHOLECALCIFEROL (VITAMIN D3) 25 MCG TABLET PO (08:42)
[2025-05-23] MEDS: CLOPIDOGREL BISULFATE 75 MG TABLET GT (08:42)
[2025-05-23] MEDS: LACTULOSE 10 GM/15 ML SOLUTION 20 GM GT ×2 (08:42→21:03)
[2025-05-23] MEDS: SENNOSIDES 8.6 MG TABLET GT ×2 (08:43→21:04)
[2025-05-23] MEDS: ACETAMINOPHEN 325 MG TABLET 650 MG GT ×2 (12:19→21:15)
[2025-05-23] MEDS: ATORVASTATIN 40 MG TABLET GT (21:03)
[2025-05-23] MEDS: MELATONIN 3 MG TABLET GT (21:04)
--- NOTE | 2025-05-23 21:28 | ESPR_ITS ---
Progress Note - SubAcute DIAGNOSIS (1) Acute arterial ischemic stroke, vertebrobasilar, brainstem: Status: Chronic Qualifiers: Laterality: left Qualified Code(s): I63.212 - Cerebral infarction due to unspecified occlusion or stenosis of left vertebral artery; I63.22 - Cerebral infarction due to unspecified occlusion or stenosis of basilar artery (2) Seizures, generalized convulsive: Status: Chronic (3) Chronic respiratory failure: Status: Chronic Qualifiers: Respiratory failure complication: unspecified whether with hypoxia or hypercapnia Qualified Code(s): J96.10 - Chronic respiratory failure, unspecified whether with hypoxia or hypercapnia (4) Altered glucose metabolism due to diabetes: Status: Chronic (5) Encephalopathy: Status: Chronic (6) Decubital ulcer: Status: Chronic (7) G tube feedings: Status: Chronic SUBJECTIVE Fever:: none Shortness of Breath:: none Pain:: none OBJECTIVE Most recent vital signs: Last Vital Signs Temp 98.0 F 05/23/25 17:51 Pulse 58 L 05/23/25 19:57 Resp 18 05/23/25 19:57 BP 137/73 H 05/23/25 17:51 Pulse Ox 94 L 05/23/25 19:57 O2 Del Method Room Air 05/19/25 06:00 Speech:: mouths words (sometimes) Answers questions:: sometimes (mostly by gestures) Respiratory:: lungs clear Cardiovascular: RRR Abdomen: soft Feeding per:: G tube ASSESSMENT & PLAN Assessment: Pt seems to be fairly stable with all above diagnosis and with limited /guarded prognosis for recovery to independent living and needs all support. Family supportive Denies any pain. VSS 11-11-24 Met with family in pt's room and updated them as well as answered all questions. Reiterated limited prognosis for independent living. Neurology input on prognostic outlook and medication review followed. Repeat CT head ordered by neurologist was done and results discussed with the Neurologist who confirmed stable changes and recommended no change on medicine. This was updated with the family the No new issues , Talked with family at bedside and updated them. VSS. Started on Melatonin q hs 3 mgs prn to facilitate sleep. Pt had fever due to E. faecalis UTI and started on Vancomycin 1gm IVPB q 12 hourly on 12-28-24 Responded well and cleared. Family very actitvely participating in patient care Some constipation concerns, was given Lactulose . Being monitored but pt did not respond to treatment and was sent to the ER were he finally did poop and stabilized and returned to the [facility] at night doing well on the above treatment protocol. Now requiring Lactulose and occasional suppository for Constipation. Tolerating feeding. VSS. No new issues. Bowel movements somewhat improved on increasing Lactulose . Stable status. Pt not to be left on [employer] [place] speaking valve unattended since he cannote operate it himself. No new issues. looks comfortable. Family mostly visits daily and very supportive. Pt very stable and seems relaxed Tracheostomy capping trials initiated. Tolerating well. Family considering possibility of taking him home without the tracheostomy. Tracheostomy discontinued and family content. Pt maintaining excellent O 2 saturations on room air in the high nineties. Pt's status changed to SNF. VSS. No new issues. Plan: Full support medical/nutritional and emotional towards maintaining some quality of life
[2025-05-24] VITALS (7 sets, daily range): BP systolic 121–150; BP diastolic 66–81; PULSE 54–74; RESP 18–20; TEMP 36.2–37; O2SAT 93–96
[2025-05-24] MEDS: LEVOTHYROXINE SODIUM 125 MCG TABLET 200 MCG GT (06:03)
[2025-05-24] MEDS: INSULIN REGULAR, HUMAN 100 UNIT/ML VIAL SC ×2 (06:03→17:20)
[2025-05-24] MEDS: DEX/HYPRO/GLY ARTIFICAL TEARS 225 DROP/15 ML BTL BOTH EYES ×2 (08:27→20:50)
[2025-05-24] MEDS: CHOLECALCIFEROL (VITAMIN D3) 25 MCG TABLET PO (08:27)
[2025-05-24] MEDS: APIXABAN 5 MG TABLET GT ×2 (08:27→20:50)
[2025-05-24] MEDS: CLOPIDOGREL BISULFATE 75 MG TABLET GT (08:27)
[2025-05-24] MEDS: LACTULOSE 10 GM/15 ML SOLUTION 20 GM GT ×2 (08:27→20:50)
[2025-05-24] MEDS: SENNOSIDES 8.6 MG TABLET GT ×2 (08:28→20:50)
[2025-05-24] MEDS: ACETAMINOPHEN 325 MG TABLET 650 MG GT (16:05)
[2025-05-24] MEDS: MELATONIN 3 MG TABLET GT (20:50)
[2025-05-24] MEDS: ATORVASTATIN 40 MG TABLET GT (20:50)
[2025-05-25] MEDS: INSULIN REGULAR, HUMAN 100 UNIT/ML VIAL SC ×2 (05:35→17:03)
[2025-05-25] MEDS: LEVOTHYROXINE SODIUM 125 MCG TABLET 200 MCG GT (05:35)
[2025-05-25 06:00] VITALS: BP 128/69; PULSE 51; RESP 20; TEMP 36.4; O2SAT 98
[2025-05-25 07:02] VITALS: PULSE 62; RESP 18; O2SAT 95
[2025-05-25 09:06] VITALS: BP 118/68; PULSE 60
[2025-05-25] MEDS: APIXABAN 5 MG TABLET GT ×2 (09:06→20:25)
[2025-05-25] MEDS: CHOLECALCIFEROL (VITAMIN D3) 25 MCG TABLET PO (09:06)
[2025-05-25] MEDS: CLOPIDOGREL BISULFATE 75 MG TABLET GT (09:06)
[2025-05-25] MEDS: AMIODARONE 200 MG TABLET 400 MG GT (09:06)
[2025-05-25] MEDS: DEX/HYPRO/GLY ARTIFICAL TEARS 225 DROP/15 ML BTL BOTH EYES ×2 (09:07→20:26)
[2025-05-25] MEDS: SENNOSIDES 8.6 MG TABLET GT ×2 (09:07→20:28)
[2025-05-25] MEDS: LACTULOSE 10 GM/15 ML SOLUTION 20 GM GT ×2 (09:07→20:26)
--- NOTE | 2025-05-25 10:29 | PC.SS ---
This SSD called and left 3rd message for medical records at [facility] requesting service notes for appointment 05/06. Request for records was faxed twice to them by this SSD. This SSD will follow up with office to ensure notes are received.
[2025-05-25 12:00] VITALS: BP 117/68; PULSE 56; RESP 19; TEMP 36.5
[2025-05-25 18:00] VITALS: BP 120/67; PULSE 78; RESP 20; TEMP 36.6
[2025-05-25 19:42] VITALS: PULSE 58; RESP 20; O2SAT 95
[2025-05-25] MEDS: ATORVASTATIN 40 MG TABLET GT (20:26)
[2025-05-25] MEDS: MELATONIN 3 MG TABLET GT (20:27)
[2025-05-26] VITALS (7 sets, daily range): BP systolic 125–148; BP diastolic 66–74; PULSE 51–65; RESP 18–23; TEMP 36.1–36.6; O2SAT 95–98; BMI 22.1
[2025-05-26] MEDS: LEVOTHYROXINE SODIUM 125 MCG TABLET 200 MCG GT (05:07)
[2025-05-26] MEDS: INSULIN REGULAR, HUMAN 100 UNIT/ML VIAL SC ×2 (05:17→17:03)
[2025-05-26] MEDS: CHOLECALCIFEROL (VITAMIN D3) 25 MCG TABLET PO (09:24)
[2025-05-26] MEDS: AMIODARONE 200 MG TABLET 400 MG GT (09:24)
[2025-05-26] MEDS: CLOPIDOGREL BISULFATE 75 MG TABLET GT (09:24)
[2025-05-26] MEDS: DEX/HYPRO/GLY ARTIFICAL TEARS 225 DROP/15 ML BTL BOTH EYES ×2 (09:24→21:11)
[2025-05-26] MEDS: LACTULOSE 10 GM/15 ML SOLUTION 20 GM GT (09:24)
[2025-05-26] MEDS: APIXABAN 5 MG TABLET GT (09:24)
[2025-05-26] MEDS: SENNOSIDES 8.6 MG TABLET GT (09:25)
--- NOTE | 2025-05-26 12:30 | PC.NURSE ---
Resident's blood sugar at 06:00 was 230, currently on dysphagia 1 pureed diet . Spoke with ST about it and had changed diet to consistent carb. RD recommended to stop resident's tube feeding since he's been consuming 100 % most of the time of his meal and for him to have glucerna if he eats <50% and to flush gtube with minimum of 400 ml water each shift.
--- NOTE | 2025-05-26 13:27 | PC.NURSE ---
I weighed resident on new bed scale his weight is 163.4 . He gained 8 pounds in 11 days, I notified the charge nurse. she assessed him to see if he had edema.
[2025-05-26] MEDS: ACETAMINOPHEN 325 MG TABLET 650 MG GT (13:29)
--- NOTE | 2025-05-26 15:37 | PC.NURSE ---
Resident noted with weight gain of 8 lbs in one week, minimal trace edema to left ankle. Discussed with IDT team today. Dr East made aware of the increased blood sugar results, no new orders made at this time. To monitor resident after stopping the tube feeding and changing his diet to consistent carb. Resident to start taking his medicines by mouth as per discussed with the IDT.
--- NOTE | 2025-05-26 15:44 | PC.NURSE ---
Resident's son and at bedside made aware of the new orders.
[2025-05-26] MEDS: SENNOSIDES 8.6 MG TABLET PO (21:11)
[2025-05-26] MEDS: MELATONIN 3 MG TABLET PO (21:11)
[2025-05-26] MEDS: LACTULOSE 10 GM/15 ML SOLUTION 20 GM PO (21:11)
[2025-05-26] MEDS: APIXABAN 5 MG TABLET PO (21:12)
[2025-05-26] MEDS: ATORVASTATIN 40 MG TABLET PO (21:12)
[2025-05-27] VITALS (7 sets, daily range): BP systolic 114–151; BP diastolic 56–76; PULSE 50–79; RESP 18–20; TEMP 36–36.4; O2SAT 98–99
[2025-05-27] MEDS: LEVOTHYROXINE SODIUM 125 MCG TABLET 200 MCG PO (05:13)
[2025-05-27] MEDS: CHOLECALCIFEROL (VITAMIN D3) 25 MCG TABLET PO (09:05)
[2025-05-27] MEDS: APIXABAN 5 MG TABLET PO ×2 (09:05→20:21)
[2025-05-27] MEDS: LACTULOSE 10 GM/15 ML SOLUTION 20 GM PO ×2 (09:06→20:22)
[2025-05-27] MEDS: DEX/HYPRO/GLY ARTIFICAL TEARS 225 DROP/15 ML BTL BOTH EYES ×2 (09:06→20:22)
[2025-05-27] MEDS: SENNOSIDES 8.6 MG TABLET PO ×2 (09:06→20:23)
[2025-05-27] MEDS: CLOPIDOGREL BISULFATE 75 MG TABLET PO (09:10)
[2025-05-27] MEDS: INSULIN REGULAR, HUMAN 100 UNIT/ML VIAL SC (17:29)
[2025-05-27] MEDS: ATORVASTATIN 40 MG TABLET PO (20:22)
[2025-05-27] MEDS: MELATONIN 3 MG TABLET PO (20:23)
[2025-05-27] MEDS: ACETAMINOPHEN 325 MG TABLET 650 MG PO (20:25)
--- NOTE | 2025-05-27 22:14 | ESPR_ITS ---
Progress Note - SubAcute DIAGNOSIS (1) Acute arterial ischemic stroke, vertebrobasilar, brainstem: Status: Chronic Qualifiers: Laterality: left Qualified Code(s): I63.212 - Cerebral infarction due to unspecified occlusion or stenosis of left vertebral artery; I63.22 - Cerebral infarction due to unspecified occlusion or stenosis of basilar artery (2) Seizures, generalized convulsive: Status: Chronic (3) Altered glucose metabolism due to diabetes: Status: Chronic (4) Decubital ulcer: Status: Chronic (5) G tube feedings: Status: Chronic SUBJECTIVE Fever:: none Shortness of Breath:: none Pain:: none OBJECTIVE Most recent vital signs: Last Vital Signs Temp 96.8 F 05/27/25 17: Pulse 51 L 05/27/25 17:29 Resp 20 05/27/25 17:29 BP 151/76 H 05/27/25 17: Pulse Ox 98 05/27/25 07:00 O2 Del Method Blow-by 05/26/25 12:00 Speech:: mouths words (sometimes) Answers questions:: sometimes (mostly by gestures) Respiratory:: lungs clear Cardiovascular: RRR Abdomen: soft Feeding per:: G tube ASSESSMENT & PLAN Assessment: Pt seems to be fairly stable with all above diagnosis and with limited /guarded prognosis for recovery to independent living and needs all support. Family supportive Denies any pain. VSS 11-11-24 Met with family in pt's room and updated them as well as answered all questions. Reiterated limited prognosis for independent living. Neurology input on prognostic outlook and medication review followed. Repeat CT head ordered by neurologist was done and results discussed with the Neurologist who confirmed stable changes and recommended no change on medicine. This was updated with the family the No new issues , Talked with family at bedside and updated them. VSS. Started on Melatonin q hs 3 mgs prn to facilitate sleep. Pt had fever due to E. faecalis UTI and started on Vancomycin 1gm IVPB q 12 hourly on 12-28-24 Responded well and cleared. Family very actitvely participating in patient care Some constipation concerns, was given Lactulose . Being monitored but pt did not respond to treatment and was sent to the ER were he finally did poop and stabilized and returned to the [facility] at night doing well on the above treatment protocol. Now requiring Lactulose and occasional suppository for Constipation. Tolerating feeding. VSS. No new issues. Bowel movements somewhat improved on increasing Lactulose . Stable status. Pt not to be left on Passe' [place] speaking valve unattended since he cannote operate it himself. No new issues. looks comfortable. Family mostly visits daily and very supportive. Pt very stable and seems relaxed Tracheostomy capping trials initiated. Tolerating well. Family considering possibility of taking him home without the tracheostomy. Tracheostomy discontinued and family content. Pt maintaining excellent O 2 saturations on room air in the high nineties. Pt's status changed to SNF. VSS. No new issues. Pt maintaining O2 saturations on room air very well and hence diagnosis of Chronic respiratory failure with hypoxia is discontinued. Pt now has significant deficits in cognition but no confusion or altered mental status and hence diagnosis of Chronic Encephalopathy is discontinued. VSS Plan: Full support medical/nutritional and emotional towards maintaining some quality of life
[2025-05-28] MEDS: LEVOTHYROXINE SODIUM 125 MCG TABLET 200 MCG PO (05:40)
[2025-05-28 06:55] VITALS: PULSE 55; RESP 18; O2SAT 98
[2025-05-28 09:21] VITALS: BP 117/68; PULSE 53
[2025-05-28] MEDS: APIXABAN 5 MG TABLET PO ×2 (09:21→20:16)
[2025-05-28] MEDS: CHOLECALCIFEROL (VITAMIN D3) 25 MCG TABLET PO (09:21)
[2025-05-28] MEDS: LACTULOSE 10 GM/15 ML SOLUTION 20 GM PO ×2 (09:21→20:17)
[2025-05-28] MEDS: DEX/HYPRO/GLY ARTIFICAL TEARS 225 DROP/15 ML BTL BOTH EYES ×2 (09:21→20:17)
[2025-05-28] MEDS: CLOPIDOGREL BISULFATE 75 MG TABLET PO (09:21)
[2025-05-28] MEDS: SENNOSIDES 8.6 MG TABLET PO ×2 (09:22→20:18)
[2025-05-28] MEDS: ACETAMINOPHEN 325 MG TABLET 650 MG PO ×2 (09:36→16:28)
--- NOTE | 2025-05-28 10:30 | PC.SS ---
Resident remains in current care on room air, he continues to have his meal PO with no difficulty. Resident is able to make needs known, his Jen Barth is his decision maker. Resident does not have POA in place nor is he able to participate in this process as he tends to get confused. Resident will continue to have all subacute care needs met by staff and will continue to have daily room visits. This SSD continues to work on DC planning to lower level of care to SNF.
[2025-05-28 12:00] VITALS: BP 151/83; PULSE 58; RESP 19; TEMP 36.4
[2025-05-28] MEDS: INSULIN REGULAR, HUMAN 100 UNIT/ML VIAL SC (17:10)
[2025-05-28 17:58] VITALS: BP 154/81; PULSE 52; RESP 20; TEMP 36.2; O2SAT 100
[2025-05-28] MEDS: ATORVASTATIN 40 MG TABLET PO (20:17)
[2025-05-28] MEDS: MELATONIN 3 MG TABLET PO (20:18)
[2025-05-28 23:23] VITALS: PULSE 50; RESP 18; O2SAT 99
[2025-05-29] VITALS (7 sets, daily range): BP systolic 106–141; BP diastolic 65–78; PULSE 53–101; RESP 18–22; TEMP 36.1–36.4; O2SAT 93–97
[2025-05-29] MEDS: ACETAMINOPHEN 325 MG TABLET 650 MG PO ×3 (00:05→20:15)
[2025-05-29] MEDS: LEVOTHYROXINE SODIUM 125 MCG TABLET 200 MCG PO (05:23)
[2025-05-29] MEDS: CHOLECALCIFEROL (VITAMIN D3) 25 MCG TABLET PO (09:11)
[2025-05-29] MEDS: APIXABAN 5 MG TABLET PO ×2 (09:11→20:16)
[2025-05-29] MEDS: DEX/HYPRO/GLY ARTIFICAL TEARS 225 DROP/15 ML BTL BOTH EYES ×2 (09:12→20:16)
[2025-05-29] MEDS: LACTULOSE 10 GM/15 ML SOLUTION 20 GM PO ×2 (09:12→20:16)
[2025-05-29] MEDS: SENNOSIDES 8.6 MG TABLET PO ×2 (09:12→20:17)
[2025-05-29] MEDS: CLOPIDOGREL BISULFATE 75 MG TABLET PO (09:12)
--- NOTE | 2025-05-29 09:45 | PC.NURSE ---
05/29/2025: Dr. East called by this production underwriter to check on possible future removal of GT. Per Dr. East, Gt not to be removed at this time and able to say when it will be removed, possibly in 6 months or a years. It will be determined by patients p.o. intake and weight gain.
--- NOTE | 2025-05-29 10:06 | PC.NURSE ---
05/29/2025: Dr. East called by this signwriter to inquire about possible future date of Gt removal. Per Dr. East, this time is too soon to determine future date for removal of Gt. Removal depends on pt's intake and weight gain. Removal can take 6 months or longer to determine.
[2025-05-29] MEDS: MELATONIN 3 MG TABLET PO (20:16)
[2025-05-29] MEDS: ATORVASTATIN 40 MG TABLET PO (20:16)
[2025-05-30] VITALS (7 sets, daily range): BP systolic 117–135; BP diastolic 68–73; PULSE 52–65; RESP 16–21; TEMP 36.3–36.7; O2SAT 93–99
[2025-05-30] MEDS: LEVOTHYROXINE SODIUM 125 MCG TABLET 200 MCG PO (05:07)
[2025-05-30] MEDS: APIXABAN 5 MG TABLET PO ×2 (09:23→20:54)
[2025-05-30] MEDS: CHOLECALCIFEROL (VITAMIN D3) 25 MCG TABLET PO (09:23)
[2025-05-30] MEDS: SENNOSIDES 8.6 MG TABLET PO ×2 (09:23→20:54)
[2025-05-30] MEDS: DEX/HYPRO/GLY ARTIFICAL TEARS 225 DROP/15 ML BTL BOTH EYES ×2 (09:23→20:54)
[2025-05-30] MEDS: CLOPIDOGREL BISULFATE 75 MG TABLET PO (09:23)
[2025-05-30] MEDS: LACTULOSE 10 GM/15 ML SOLUTION 20 GM PO ×2 (09:23→20:54)
[2025-05-30] MEDS: ACETAMINOPHEN 325 MG TABLET 650 MG PO (11:37)
[2025-05-30] MEDS: INSULIN REGULAR, HUMAN 100 UNIT/ML VIAL SC (16:52)
[2025-05-30] MEDS: ATORVASTATIN 40 MG TABLET PO (20:54)
[2025-05-30] MEDS: MELATONIN 3 MG TABLET PO (20:54)
[2025-05-31] VITALS (7 sets, daily range): BP systolic 117–146; BP diastolic 63–88; PULSE 47–79; RESP 17–20; TEMP 36.1–36.8; O2SAT 94–97
[2025-05-31] MEDS: LEVOTHYROXINE SODIUM 125 MCG TABLET 200 MCG PO (05:12)
[2025-05-31] MEDS: CHOLECALCIFEROL (VITAMIN D3) 25 MCG TABLET PO (08:19)
[2025-05-31] MEDS: APIXABAN 5 MG TABLET PO ×2 (08:19→20:18)
[2025-05-31] MEDS: AMIODARONE 200 MG TABLET 400 MG PO (08:19)
[2025-05-31] MEDS: CLOPIDOGREL BISULFATE 75 MG TABLET PO (08:20)
[2025-05-31] MEDS: LACTULOSE 10 GM/15 ML SOLUTION 20 GM PO ×2 (08:20→20:18)
[2025-05-31] MEDS: DEX/HYPRO/GLY ARTIFICAL TEARS 225 DROP/15 ML BTL BOTH EYES ×2 (08:20→20:18)
[2025-05-31] MEDS: SENNOSIDES 8.6 MG TABLET PO ×2 (08:20→20:18)
[2025-05-31] MEDS: ACETAMINOPHEN 325 MG TABLET 650 MG PO ×2 (11:05→20:19)
--- NOTE | 2025-05-31 16:33 | ESPR_ITS ---
Progress Note - SubAcute DIAGNOSIS (1) Acute arterial ischemic stroke, vertebrobasilar, brainstem: Status: Chronic Qualifiers: Laterality: left Qualified Code(s): I63.212 - Cerebral infarction due to unspecified occlusion or stenosis of left vertebral artery; I63.22 - Cerebral infarction due to unspecified occlusion or stenosis of basilar artery (2) Seizures, generalized convulsive: Status: Chronic (3) Altered glucose metabolism due to diabetes: Status: Chronic (4) Decubital ulcer: Status: Chronic (5) G tube feedings: Status: Chronic SUBJECTIVE Fever:: none Shortness of Breath:: none Pain:: none OBJECTIVE Most recent vital signs: Last Vital Signs Temp 97.0 F 05/31/25 06:00 Pulse 79 05/31/25 08:19 Resp 19 05/31/25 06:39 BP 146/88 H 05/31/25 08:19 Pulse Ox 97 05/31/25 06:39 O2 Del Method Room Air 05/31/25 06:00 Speech:: mouths words (sometimes) Answers questions:: sometimes (mostly by gestures) Respiratory:: lungs clear Cardiovascular: RRR Abdomen: soft Feeding per:: G tube ASSESSMENT & PLAN Assessment: Pt seems to be fairly stable with all above diagnosis and with limited /guarded prognosis for recovery to independent living and needs all support. Family supportive Denies any pain. VSS 11-11-24 Met with family in pt's room and updated them as well as answered all questions. Reiterated limited prognosis for independent living. Neurology input on prognostic outlook and medication review followed. Repeat CT head ordered by neurologist was done and results discussed with the Neurologist who confirmed stable changes and recommended no change on medicine. This was updated with the family the No new issues , Talked with family at bedside and updated them. VSS. Started on Melatonin q hs 3 mgs prn to facilitate sleep. Pt had fever due to E. faecalis UTI and started on Vancomycin 1gm IVPB q 12 hourly on 12-28-24 Responded well and cleared. Family very actitvely participating in patient care Some constipation concerns, was given Lactulose . Being monitored but pt did not respond to treatment and was sent to the ER were he finally did poop and stabilized and returned to the [facility] at night doing well on the above treatment protocol. Now requiring Lactulose and occasional suppository for Constipation. Tolerating feeding. VSS. No new issues. Bowel movements somewhat improved on increasing Lactulose . Stable status. Pt not to be left on Passe' [place] speaking valve unattended since he cannote operate it himself. No new issues. looks comfortable. Family mostly visits daily and very supportive. Pt very stable and seems relaxed Tracheostomy capping trials initiated. Tolerating well. Family considering possibility of taking him home without the tracheostomy. Tracheostomy discontinued and family content. Pt maintaining excellent O 2 saturations on room air in the high nineties. Pt's status changed to SNF. VSS. No new issues. Pt maintaining O2 saturations on room air very well and hence diagnosis of Chronic respiratory failure with hypoxia is discontinued. Pt now has significant deficits in cognition but no confusion or altered mental status and hence diagnosis of Chronic Encephalopathy is discontinued. VSS. Tolerating PO feeding 50% and monitored. Plan: Full support medical/nutritional and emotional towards maintaining some quality of life
[2025-05-31] MEDS: ATORVASTATIN 40 MG TABLET PO (20:18)
[2025-05-31] MEDS: MELATONIN 3 MG TABLET PO (20:18)
[2025-06-01] VITALS (8 sets, daily range): BP systolic 117–150; BP diastolic 66–82; PULSE 49–65; RESP 16–20; TEMP 36.2–36.9; O2SAT 93–99
[2025-06-01] MEDS: LEVOTHYROXINE SODIUM 125 MCG TABLET 200 MCG PO (05:06)
[2025-06-01] MEDS: CHOLECALCIFEROL (VITAMIN D3) 25 MCG TABLET PO (08:38)
[2025-06-01] MEDS: APIXABAN 5 MG TABLET PO ×2 (08:38→21:05)
[2025-06-01] MEDS: CLOPIDOGREL BISULFATE 75 MG TABLET PO (08:38)
[2025-06-01] MEDS: DEX/HYPRO/GLY ARTIFICAL TEARS 225 DROP/15 ML BTL BOTH EYES ×2 (08:38→21:06)
[2025-06-01] MEDS: SENNOSIDES 8.6 MG TABLET PO ×2 (08:39→21:07)
[2025-06-01] MEDS: LACTULOSE 10 GM/15 ML SOLUTION 20 GM PO ×2 (08:39→21:06)
[2025-06-01] MEDS: ACETAMINOPHEN 325 MG TABLET 650 MG PO ×2 (11:48→21:08)
--- NOTE | 2025-06-01 12:06 | PC.SS ---
This SSD called and spoke with Magali at [facility] regarding referral sent for short term placement. Magali had questions, all questions answer. Magali said she would have her DON review referral and would call this SSD back. This SSD will continue to assist with placement in [place] closer to family, per RP request.
[2025-06-01] MEDS: ATORVASTATIN 40 MG TABLET PO (21:06)
[2025-06-01] MEDS: MELATONIN 3 MG TABLET PO (21:07)
[2025-06-02] MEDS: LEVOTHYROXINE SODIUM 125 MCG TABLET 200 MCG PO (05:09)
[2025-06-02 05:47] VITALS: BP 124/80; PULSE 47; RESP 16; TEMP 36.4; O2SAT 99
[2025-06-02 07:03] VITALS: PULSE 43; RESP 18; O2SAT 97
[2025-06-02 08:59] VITALS: BP 153/71; PULSE 51
[2025-06-02] MEDS: CLOPIDOGREL BISULFATE 75 MG TABLET PO (09:00)
[2025-06-02] MEDS: APIXABAN 5 MG TABLET PO ×2 (09:00→20:56)
[2025-06-02] MEDS: CHOLECALCIFEROL (VITAMIN D3) 25 MCG TABLET PO (09:00)
[2025-06-02] MEDS: LACTULOSE 10 GM/15 ML SOLUTION 20 GM PO ×2 (09:01→20:56)
[2025-06-02] MEDS: DEX/HYPRO/GLY ARTIFICAL TEARS 225 DROP/15 ML BTL BOTH EYES ×2 (09:01→20:56)
[2025-06-02] MEDS: SENNOSIDES 8.6 MG TABLET PO ×2 (09:01→20:57)
[2025-06-02 10:55] VITALS: BMI 21.4
--- NOTE | 2025-06-02 10:57 | PC.NURSE ---
I weighed Edu Tarun today with new bedscale his weight is 158.8
[2025-06-02 12:00] VITALS: BP 124/61; PULSE 67; RESP 18; TEMP 36.8
--- NOTE | 2025-06-02 12:17 | PC.SS ---
This SSD called and spoke with Jessenia at [facility], called to check status of referral for short term placements to lower level of care. Jessenia said her DON is reviewing it and has not gotten back to her. This SSD to follow up with her. Resident is ready to DC to lower level of care, this transfer to to lower level of care is being initiated by SHANNAN Barth.
[2025-06-02] MEDS: ACETAMINOPHEN 325 MG TABLET 650 MG PO (12:48)
[2025-06-02 17:24] VITALS: BP 134/72; PULSE 50; RESP 18; TEMP 36.8; O2SAT 97
[2025-06-02 19:48] VITALS: PULSE 62; RESP 18; O2SAT 98
[2025-06-02] MEDS: ATORVASTATIN 40 MG TABLET PO (20:56)
[2025-06-02] MEDS: MELATONIN 3 MG TABLET PO (20:57)
[2025-06-03] VITALS (7 sets, daily range): BP systolic 113–129; BP diastolic 65–77; PULSE 44–60; RESP 18–20; TEMP 36.2–36.7; O2SAT 96–98
[2025-06-03] MEDS: LEVOTHYROXINE SODIUM 125 MCG TABLET 200 MCG PO (05:38)
[2025-06-03] MEDS: CHOLECALCIFEROL (VITAMIN D3) 25 MCG TABLET PO (08:32)
[2025-06-03] MEDS: APIXABAN 5 MG TABLET PO ×2 (08:32→20:56)
[2025-06-03] MEDS: DEX/HYPRO/GLY ARTIFICAL TEARS 225 DROP/15 ML BTL BOTH EYES ×2 (08:33→20:57)
[2025-06-03] MEDS: LACTULOSE 10 GM/15 ML SOLUTION 20 GM PO ×2 (08:33→20:57)
[2025-06-03] MEDS: SENNOSIDES 8.6 MG TABLET PO ×2 (08:33→20:58)
[2025-06-03] MEDS: CLOPIDOGREL BISULFATE 75 MG TABLET PO (08:33)
[2025-06-03] MEDS: ATORVASTATIN 40 MG TABLET PO (20:57)
[2025-06-03] MEDS: MELATONIN 3 MG TABLET PO (20:58)
[2025-06-03] MEDS: ACETAMINOPHEN 325 MG TABLET 650 MG PO (20:59)
[2025-06-04] VITALS: BP 127/67; PULSE 55; TEMP 36.6
[2025-06-04] MEDS: LEVOTHYROXINE SODIUM 125 MCG TABLET 200 MCG PO (05:10)
[2025-06-04 06:00] VITALS: BP 131/57; PULSE 48; RESP 17; TEMP 36.2; O2SAT 95
[2025-06-04 07:17] VITALS: PULSE 57; RESP 18; O2SAT 96
[2025-06-04 09:25] VITALS: PULSE 54
[2025-06-04] MEDS: APIXABAN 5 MG TABLET PO ×2 (09:25→20:53)
[2025-06-04] MEDS: CHOLECALCIFEROL (VITAMIN D3) 25 MCG TABLET PO (09:25)
[2025-06-04] MEDS: LACTULOSE 10 GM/15 ML SOLUTION 20 GM PO ×2 (09:26→20:53)
[2025-06-04] MEDS: DEX/HYPRO/GLY ARTIFICAL TEARS 225 DROP/15 ML BTL BOTH EYES ×2 (09:26→20:53)
[2025-06-04] MEDS: CLOPIDOGREL BISULFATE 75 MG TABLET PO (09:26)
[2025-06-04] MEDS: SENNOSIDES 8.6 MG TABLET PO ×2 (09:28→20:54)
--- NOTE | 2025-06-04 15:04 | PC.SS ---
Resident remains on room air and GT for medication and continues to eat by mouth. Resident is able to make needs known with clear speech, open claims representative will continue to make all medical decisions for resident. Resident will remain in current care until appropriate custodial bed is made available at lower level of care.
[2025-06-04] MEDS: INSULIN REGULAR, HUMAN 100 UNIT/ML VIAL SC (17:46)
[2025-06-04 19:36] VITALS: PULSE 67; RESP 16; O2SAT 97
[2025-06-04] MEDS: ATORVASTATIN 40 MG TABLET PO (20:53)
[2025-06-04] MEDS: MELATONIN 3 MG TABLET PO (20:54)
--- NOTE | 2025-06-04 21:56 | PD.SAPROG ---
Progress Note - SubAcute DIAGNOSIS (1) Acute arterial ischemic stroke, vertebrobasilar, brainstem: Status: Chronic Qualifiers: Laterality: left Qualified Code(s): I63.212 - Cerebral infarction due to unspecified occlusion or stenosis of left vertebral artery; I63.22 - Cerebral infarction due to unspecified occlusion or stenosis of basilar artery (2) Seizures, generalized convulsive: Status: Chronic (3) Altered glucose metabolism due to diabetes: Status: Chronic (4) Decubital ulcer: Status: Chronic (5) G tube feedings: Status: Chronic SUBJECTIVE Fever:: none Shortness of Breath:: none Pain:: none OBJECTIVE Most recent vital signs: Last Vital Signs Temp 97.1 F 06/04/25 06:00 Pulse 54 L 06/04/25 09:25 Resp 18 06/04/25 07:17 BP 131/57 H 06/04/25 06:00 Pulse Ox 96 06/04/25 07:17 O2 Del Method Room Air 06/02/25 17:24 Speech:: mouths words (sometimes) Answers questions:: sometimes (mostly by gestures) Respiratory:: lungs clear Cardiovascular: RRR Abdomen: soft Feeding per:: G tube ASSESSMENT & PLAN Assessment: Pt seems to be fairly stable with all above diagnosis and with limited /guarded prognosis for recovery to independent living and needs all support. Family supportive Denies any pain. VSS 11-11-24 Met with family in pt's room and updated them as well as answered all questions. Reiterated limited prognosis for independent living. Neurology input on prognostic outlook and medication review followed. Repeat CT head ordered by neurologist was done and results discussed with the Neurologist who confirmed stable changes and recommended no change on medicine. This was updated with the family the No new issues , Talked with family at bedside and updated them. VSS. Started on Melatonin q hs 3 mgs prn to facilitate sleep. Pt had fever due to E. faecalis UTI and started on Vancomycin 1gm IVPB q 12 hourly on 12-28-24 Responded well and cleared. Family very actitvely participating in patient care Some constipation concerns, was given Lactulose . Being monitored but pt did not respond to treatment and was sent to the ER were he finally did poop and stabilized and returned to the [facility] at night doing well on the above treatment protocol. Now requiring Lactulose and occasional suppository for Constipation. Tolerating feeding. VSS. No new issues. Bowel movements somewhat improved on increasing Lactulose . Stable status. Pt not to be left on [employer] [place] speaking valve unattended since he cannote operate it himself. No new issues. looks comfortable. Family mostly visits daily and very supportive. Pt very stable and seems relaxed Tracheostomy capping trials initiated. Tolerating well. Family considering possibility of taking him home without the tracheostomy. Tracheostomy discontinued and family content. Pt maintaining excellent O 2 saturations on room air in the high nineties. Pt's status changed to SNF. VSS. No new issues. Pt maintaining O2 saturations on room air very well and hence diagnosis of Chronic respiratory failure with hypoxia is discontinued. Pt now has significant deficits in cognition but no confusion or altered mental status and hence diagnosis of Chronic Encephalopathy is discontinued. 06/04/25: VSS. Tolerating PO feeding 50% and monitored. Plan: Full support medical/nutritional and emotional towards maintaining some quality of life
[2025-06-05] VITALS (7 sets, daily range): BP systolic 109–138; BP diastolic 65–72; PULSE 50–69; RESP 16–19; TEMP 36.5–36.7; O2SAT 91–98
[2025-06-05] MEDS: LEVOTHYROXINE SODIUM 125 MCG TABLET 200 MCG PO (05:38)
[2025-06-05] MEDS: CHOLECALCIFEROL (VITAMIN D3) 25 MCG TABLET PO (09:06)
[2025-06-05] MEDS: CLOPIDOGREL BISULFATE 75 MG TABLET PO (09:06)
[2025-06-05] MEDS: APIXABAN 5 MG TABLET PO ×2 (09:06→20:18)
[2025-06-05] MEDS: LACTULOSE 10 GM/15 ML SOLUTION 20 GM PO ×2 (09:06→20:18)
[2025-06-05] MEDS: DEX/HYPRO/GLY ARTIFICAL TEARS 225 DROP/15 ML BTL BOTH EYES ×2 (09:06→20:18)
[2025-06-05] MEDS: SENNOSIDES 8.6 MG TABLET PO ×2 (09:06→20:20)
[2025-06-05] MEDS: ACETAMINOPHEN 325 MG TABLET 650 MG PO ×2 (09:08→20:22)
[2025-06-05] MEDS: INSULIN REGULAR, HUMAN 100 UNIT/ML VIAL SC (16:58)
[2025-06-05] MEDS: ATORVASTATIN 40 MG TABLET PO (20:18)
[2025-06-05] MEDS: MELATONIN 3 MG TABLET PO (20:19)
[2025-06-06] VITALS (7 sets, daily range): BP systolic 112–138; BP diastolic 62–83; PULSE 45–61; RESP 16–18; TEMP 36.1–37.1; O2SAT 97–98
[2025-06-06] MEDS: LEVOTHYROXINE SODIUM 125 MCG TABLET 200 MCG PO (05:48)
[2025-06-06] MEDS: AMIODARONE 200 MG TABLET 400 MG PO (09:30)
[2025-06-06] MEDS: CLOPIDOGREL BISULFATE 75 MG TABLET PO (09:31)
[2025-06-06] MEDS: CHOLECALCIFEROL (VITAMIN D3) 25 MCG TABLET PO (09:31)
[2025-06-06] MEDS: APIXABAN 5 MG TABLET PO ×2 (09:31→20:46)
[2025-06-06] MEDS: LACTULOSE 10 GM/15 ML SOLUTION 20 GM PO ×2 (09:31→20:47)
[2025-06-06] MEDS: SENNOSIDES 8.6 MG TABLET PO ×2 (09:31→20:48)
[2025-06-06] MEDS: DEX/HYPRO/GLY ARTIFICAL TEARS 225 DROP/15 ML BTL BOTH EYES ×2 (09:31→20:47)
--- NOTE | 2025-06-06 12:33 | ESPR_ITS ---
Progress Note - SubAcute DIAGNOSIS (1) Acute arterial ischemic stroke, vertebrobasilar, brainstem: Status: Chronic Qualifiers: Laterality: left Qualified Code(s): I63.212 - Cerebral infarction due to unspecified occlusion or stenosis of left vertebral artery; I63.22 - Cerebral infarction due to unspecified occlusion or stenosis of basilar artery (2) Seizures, generalized convulsive: Status: Chronic (3) Altered glucose metabolism due to diabetes: Status: Chronic (4) Decubital ulcer: Status: Chronic (5) G tube feedings: Status: Chronic SUBJECTIVE Fever:: none Shortness of Breath:: none Pain:: none OBJECTIVE Most recent vital signs: Last Vital Signs Temp 98.7 F 06/06/25 12:00 Pulse 59 L 06/06/25 12:00 Resp 18 06/06/25 12:00 BP 112/62 06/06/25 12:00 Pulse Ox 97 06/06/25 07:15 O2 Del Method Blow-by 06/06/25 06:00 Speech:: mouths words (sometimes) Answers questions:: sometimes (mostly by gestures) Respiratory:: lungs clear Cardiovascular: RRR Abdomen: soft Feeding per:: G tube ASSESSMENT & PLAN Assessment: Pt seems to be fairly stable with all above diagnosis and with limited /guarded prognosis for recovery to independent living and needs all support. Family supportive Denies any pain. VSS 11-11-24 Met with family in pt's room and updated them as well as answered all questions. Reiterated limited prognosis for independent living. Neurology input on prognostic outlook and medication review followed. Repeat CT head ordered by neurologist was done and results discussed with the Neurologist who confirmed stable changes and recommended no change on medicine. This was updated with the family the No new issues , Talked with family at bedside and updated them. VSS. Started on Melatonin q hs 3 mgs prn to facilitate sleep. Pt had fever due to E. faecalis UTI and started on Vancomycin 1gm IVPB q 12 hourly on 12-28-24 Responded well and cleared. Family very actitvely participating in patient care Some constipation concerns, was given Lactulose . Being monitored but pt did not respond to treatment and was sent to the ER were he finally did poop and stabilized and returned to the [facility] at night doing well on the above treatment protocol. Now requiring Lactulose and occasional suppository for Constipation. Tolerating feeding. VSS. No new issues. Bowel movements somewhat improved on increasing Lactulose . Stable status. Pt not to be left on Passe' [place] speaking valve unattended since he cannote operate it himself. No new issues. looks comfortable. Family mostly visits daily and very supportive. Pt very stable and seems relaxed Tracheostomy capping trials initiated. Tolerating well. Family considering possibility of taking him home without the tracheostomy. Tracheostomy discontinued and family content. Pt maintaining excellent O 2 saturations on room air in the high nineties. Pt's status changed to SNF. VSS. No new issues. Pt maintaining O2 saturations on room air very well and hence diagnosis of Chronic respiratory failure with hypoxia is discontinued. Pt now has significant deficits in cognition but no confusion or altered mental status and hence diagnosis of Chronic Encephalopathy is discontinued. 06/06/25: VSS. Tolerating PO feeding 50% and monitored. Started on Mylanta prn for gaseous discomfort Plan: Full support medical/nutritional and emotional towards maintaining some quality of life
[2025-06-06] MEDS: ACETAMINOPHEN 325 MG TABLET 650 MG PO ×2 (13:25→20:48)
[2025-06-06] MEDS: ATORVASTATIN 40 MG TABLET PO (20:47)
[2025-06-06] MEDS: MELATONIN 3 MG TABLET PO (20:48)
[2025-06-07] VITALS (7 sets, daily range): BP systolic 109–143; BP diastolic 62–78; PULSE 48–103; RESP 16–19; TEMP 36.2–36.8; O2SAT 94–99
[2025-06-07] MEDS: ACETAMINOPHEN 325 MG TABLET 650 MG PO (04:24)
[2025-06-07] MEDS: LEVOTHYROXINE SODIUM 125 MCG TABLET 200 MCG PO (05:22)
[2025-06-07] MEDS: LACTULOSE 10 GM/15 ML SOLUTION 20 GM PO ×2 (08:43→20:52)
[2025-06-07] MEDS: CHOLECALCIFEROL (VITAMIN D3) 25 MCG TABLET PO (08:43)
[2025-06-07] MEDS: APIXABAN 5 MG TABLET PO ×2 (08:43→20:52)
[2025-06-07] MEDS: CLOPIDOGREL BISULFATE 75 MG TABLET PO (08:43)
[2025-06-07] MEDS: DEX/HYPRO/GLY ARTIFICAL TEARS 225 DROP/15 ML BTL BOTH EYES ×2 (08:43→20:53)
[2025-06-07] MEDS: SENNOSIDES 8.6 MG TABLET PO ×2 (08:44→20:53)
[2025-06-07] MEDS: INSULIN REGULAR, HUMAN 100 UNIT/ML VIAL SC (17:12)
[2025-06-07] MEDS: MELATONIN 3 MG TABLET PO (20:53)
[2025-06-07] MEDS: ATORVASTATIN 40 MG TABLET PO (20:53)
[2025-06-08] VITALS (7 sets, daily range): BP systolic 110–144; BP diastolic 64–81; PULSE 48–86; RESP 16–20; TEMP 36.1–36.9; O2SAT 97–99
[2025-06-08] MEDS: LEVOTHYROXINE SODIUM 125 MCG TABLET 200 MCG PO (05:31)
[2025-06-08 08:10] LABS: Alanine Aminotransferase 76 U/L (10-49); Albumin, Serum 3.5 gm/dL (3.4-4.8); Alkaline Phosphatase 84 U/L (46-116); Anion Gap 10 (7-16); Aspartate Amino Transferase 51 U/L (0-34); BUN/Creatinine Ratio 10 Ratio (12-20); Basophils # (Auto) 0.1 Thou/mm3 (0.0-0.2); Basophils % (Auto) 2 % (0-2.5); Bilirubin,Direct 0.1 mg/dL (0.0-0.3); Bilirubin,Total 0.3 mg/dL (0.3-1.2); Blood Urea Nitrogen 8 mg/dL (9-23); Calcium 9.1 mg/dL (8.3-10.6); Calcium (Corrected) 9.5 mg/dL (8.5-10.1); Carbon Dioxide 27.8 mMol/L (20.0-31.0); Cardiac Risk Estimate 1.9 RATIO (4.0-6.7); Chloride 108 mMol/L (98-107); Cholesterol 54 mg/dL (132-200); Creatinine (Component) 0.8 mg/dL (0.6-1.3); Eosinophils # (Auto) 0.2 Thou/mm3 (0.0-0.5); Eosinophils % (Auto) 3 % (0-10); Estimated Creatinine Clearance 98.6 mL/min (>60); Glucose 114 mg/dL (74-106); Glucose,Fasting 114 mg/dL (74-106); HDL Cholesterol 29 mg/dL (40-60); Hematocrit 34.3 % (41.0-53.0); Hemoglobin 10.8 g/dL (13.5-16.0); Immature Granulocytes Auto 0.01 Thou/mm3 (0.00-0.00); LDL Cholesterol,Calculated 17 mg/dL (0-130); Lymphocytes # (Auto) 1.8 Thou/mm3 (1.0-4.8); Lymphocytes % (Auto) 35 % (10-50); Mean Corpuscular HGB Conc 31.5 g/dl (31.0-37.0); Mean Corpuscular Hemoglobin 30.7 pg (25.0-35.0); Mean Corpuscular Volume 97 fL (80-100); Monocytes # (Auto) 0.6 Thou/mm3 (0.0-0.8); Monocytes % (Auto) 12 % (0-12); Neutrophils # (Auto) 2.6 Thou/mm3 (1.8-7.7); Neutrophils % (Auto) 49 % (37-80); Nucleated Red Blood Cell # 0.00 Thou/mm3 (0.00-0.00); Nucleated Red Blood Cell % 0 /100 WBC (0); Osmolality,Calculated 289 (275-295); Phosphorous 3.5 mg/dL (2.4-5.1); Platelet Count 238 Thou/mm3 (140-440); Potassium 3.5 mMol/L (3.4-5.1); RDW Standard Deviation 49.0 fL (35.1-43.9); Red Blood Count 3.52 Miln/mm3 (4.50-5.90); Sodium 146 mMol/L (136-145); Thyroid Stimulating Hormone 1.78 uIU/mL (0.55-4.78); Total Protein 5.8 gm/dL (5.7-8.2); Triglycerides 42 mg/dL (30-150); White Blood Count 5.3 Thou/mm3 (3.8-10.6); eGFR > 60 See Note
[2025-06-08] MEDS: CHOLECALCIFEROL (VITAMIN D3) 25 MCG TABLET PO (08:22)
[2025-06-08] MEDS: APIXABAN 5 MG TABLET PO ×2 (08:22→20:55)
[2025-06-08] MEDS: DEX/HYPRO/GLY ARTIFICAL TEARS 225 DROP/15 ML BTL BOTH EYES ×2 (08:22→20:55)
[2025-06-08] MEDS: LACTULOSE 10 GM/15 ML SOLUTION 20 GM PO ×2 (08:22→20:56)
[2025-06-08] MEDS: SENNOSIDES 8.6 MG TABLET PO ×2 (08:22→20:56)
[2025-06-08] MEDS: CLOPIDOGREL BISULFATE 75 MG TABLET PO (08:22)
[2025-06-08 08:35] LABS: Glucose Estimated Average 146 mg/dL (80-131); Hemoglobin A1C 6.7 % Hgb (4.8-6.0)
[2025-06-08] MEDS: INSULIN REGULAR, HUMAN 100 UNIT/ML VIAL SC (17:04)
[2025-06-08] MEDS: ATORVASTATIN 40 MG TABLET PO (20:55)
[2025-06-08] MEDS: MELATONIN 3 MG TABLET PO (20:56)
[2025-06-08] MEDS: ACETAMINOPHEN 325 MG TABLET 650 MG PO (20:56)
[2025-06-09] VITALS (7 sets, daily range): BP systolic 96–123; BP diastolic 58–69; PULSE 46–73; RESP 16–20; TEMP 36.6–36.7; O2SAT 95–97; BMI 21.4
[2025-06-09] MEDS: LEVOTHYROXINE SODIUM 125 MCG TABLET 200 MCG PO (05:15)
[2025-06-09] MEDS: APIXABAN 5 MG TABLET PO ×2 (08:21→20:53)
[2025-06-09] MEDS: DEX/HYPRO/GLY ARTIFICAL TEARS 225 DROP/15 ML BTL BOTH EYES ×2 (08:23→20:53)
[2025-06-09] MEDS: CLOPIDOGREL BISULFATE 75 MG TABLET PO (08:23)
[2025-06-09] MEDS: CHOLECALCIFEROL (VITAMIN D3) 25 MCG TABLET PO (08:23)
[2025-06-09] MEDS: LACTULOSE 10 GM/15 ML SOLUTION 20 GM PO ×2 (08:23→20:53)
[2025-06-09] MEDS: SENNOSIDES 8.6 MG TABLET PO ×2 (08:24→20:53)
[2025-06-09] MEDS: ACETAMINOPHEN 325 MG TABLET 650 MG PO ×2 (13:40→20:53)
[2025-06-09] MEDS: MELATONIN 3 MG TABLET PO (20:53)
[2025-06-09] MEDS: ATORVASTATIN 40 MG TABLET PO (20:53)
[2025-06-10] VITALS (7 sets, daily range): BP systolic 115–149; BP diastolic 70–83; PULSE 47–79; RESP 16–20; TEMP 36.2–36.6; O2SAT 96–98
[2025-06-10] MEDS: LEVOTHYROXINE SODIUM 125 MCG TABLET 200 MCG PO (05:16)
[2025-06-10] MEDS: CLOPIDOGREL BISULFATE 75 MG TABLET PO (09:26)
[2025-06-10] MEDS: CHOLECALCIFEROL (VITAMIN D3) 25 MCG TABLET PO (09:26)
[2025-06-10] MEDS: APIXABAN 5 MG TABLET PO ×2 (09:26→21:12)
[2025-06-10] MEDS: LACTULOSE 10 GM/15 ML SOLUTION 20 GM PO ×2 (09:27→21:13)
[2025-06-10] MEDS: SENNOSIDES 8.6 MG TABLET PO ×2 (09:27→21:14)
[2025-06-10] MEDS: DEX/HYPRO/GLY ARTIFICAL TEARS 225 DROP/15 ML BTL BOTH EYES ×2 (09:27→21:13)
[2025-06-10] MEDS: INSULIN REGULAR, HUMAN 100 UNIT/ML VIAL SC (17:34)
[2025-06-10] MEDS: ATORVASTATIN 40 MG TABLET PO (21:13)
[2025-06-10] MEDS: MELATONIN 3 MG TABLET PO (21:14)
[2025-06-11] VITALS (7 sets, daily range): BP systolic 107–147; BP diastolic 64–79; PULSE 41–83; RESP 16–18; TEMP 36.1–36.7; O2SAT 97–98
[2025-06-11] MEDS: LEVOTHYROXINE SODIUM 125 MCG TABLET 200 MCG PO (05:32)
--- NOTE | 2025-06-11 08:33 | ESPR_ITS ---
Progress Note - SubAcute DIAGNOSIS (1) Acute arterial ischemic stroke, vertebrobasilar, brainstem: Status: Chronic Qualifiers: Laterality: left Qualified Code(s): I63.212 - Cerebral infarction due to unspecified occlusion or stenosis of left vertebral artery; I63.22 - Cerebral infarction due to unspecified occlusion or stenosis of basilar artery (2) Seizures, generalized convulsive: Status: Chronic (3) Altered glucose metabolism due to diabetes: Status: Chronic (4) Decubital ulcer: Status: Chronic (5) G tube feedings: Status: Chronic SUBJECTIVE Fever:: none Shortness of Breath:: none Pain:: none OBJECTIVE Most recent vital signs: Last Vital Signs Temp 97.0 F 06/11/25 06:00 Pulse 60 06/11/25 06:52 Resp 18 06/11/25 06:52 BP 147/76 H 06/11/25 06:00 Pulse Ox 97 06/11/25 06:52 O2 Del Method Room Air 06/11/25 06:00 Speech:: mouths words (sometimes) Answers questions:: sometimes (mostly by gestures) Respiratory:: lungs clear Cardiovascular: RRR Abdomen: soft Feeding per:: G tube ASSESSMENT & PLAN Assessment: Pt seems to be fairly stable with all above diagnosis and with limited /guarded prognosis for recovery to independent living and needs all support. Family supportive Denies any pain. VSS 11-11-24 Met with family in pt's room and updated them as well as answered all questions. Reiterated limited prognosis for independent living. Neurology input on prognostic outlook and medication review followed. Repeat CT head ordered by neurologist was done and results discussed with the Neurologist who confirmed stable changes and recommended no change on medicine. This was updated with the family the No new issues , Talked with family at bedside and updated them. VSS. Started on Melatonin q hs 3 mgs prn to facilitate sleep. Pt had fever due to E. faecalis UTI and started on Vancomycin 1gm IVPB q 12 hourly on 12-28-24 Responded well and cleared. Family very actitvely participating in patient care Some constipation concerns, was given Lactulose . Being monitored but pt did not respond to treatment and was sent to the ER were he finally did poop and stabilized and returned to the [facility] at night doing well on the above treatment protocol. Now requiring Lactulose and occasional suppository for Constipation. Tolerating feeding. VSS. No new issues. Bowel movements somewhat improved on increasing Lactulose . Stable status. Pt not to be left on [employer] [place] speaking valve unattended since he cannote operate it himself. No new issues. looks comfortable. Family mostly visits daily and very supportive. Pt very stable and seems relaxed Tracheostomy capping trials initiated. Tolerating well. Family considering possibility of taking him home without the tracheostomy. Tracheostomy discontinued and family content. Pt maintaining excellent O 2 saturations on room air in the high nineties. Pt's status changed to SNF. VSS. No new issues. Pt maintaining O2 saturations on room air very well and hence diagnosis of Chronic respiratory failure with hypoxia is discontinued. Pt now has significant deficits in cognition but no confusion or altered mental status and hence diagnosis of Chronic Encephalopathy is discontinued. VSS. Tolerating PO feeding 50% and monitored. Started on Mylanta prn for gaseous discomfort. better Plan: Full support medical/nutritional and emotional towards maintaining some quality of life
[2025-06-11] MEDS: CHOLECALCIFEROL (VITAMIN D3) 25 MCG TABLET PO (09:36)
[2025-06-11] MEDS: AMIODARONE 200 MG TABLET 400 MG PO (09:36)
[2025-06-11] MEDS: APIXABAN 5 MG TABLET PO ×2 (09:36→21:08)
[2025-06-11] MEDS: CLOPIDOGREL BISULFATE 75 MG TABLET PO (09:37)
[2025-06-11] MEDS: LACTULOSE 10 GM/15 ML SOLUTION 20 GM PO ×2 (09:37→21:09)
[2025-06-11] MEDS: DEX/HYPRO/GLY ARTIFICAL TEARS 225 DROP/15 ML BTL BOTH EYES (09:37)
[2025-06-11] MEDS: SENNOSIDES 8.6 MG TABLET PO ×2 (09:38→21:09)
--- NOTE | 2025-06-11 14:36 | PC.SS ---
Resident remains on room air and GT for medication and continues to eat by mouth. Resident is able to make needs known with clear speech, patient accounting representative will continue to make all medical decisions for resident. Resident will remain in current care until appropriate residential bed is made available at lower level of care.
[2025-06-11] MEDS: ACETAMINOPHEN 325 MG TABLET 650 MG PO (14:44)
[2025-06-11] MEDS: INSULIN REGULAR, HUMAN 100 UNIT/ML VIAL SC (17:40)
[2025-06-11] MEDS: MELATONIN 3 MG TABLET PO (21:09)
[2025-06-11] MEDS: ATORVASTATIN 40 MG TABLET PO (21:09)
[2025-06-12] VITALS (7 sets, daily range): BP systolic 115–136; BP diastolic 68–76; PULSE 43–66; RESP 16–20; TEMP 36.2–36.9; O2SAT 96–99
[2025-06-12] MEDS: LEVOTHYROXINE SODIUM 125 MCG TABLET 200 MCG PO (05:27)
[2025-06-12] MEDS: APIXABAN 5 MG TABLET PO ×2 (09:41→21:02)
[2025-06-12] MEDS: CHOLECALCIFEROL (VITAMIN D3) 25 MCG TABLET PO (09:41)
[2025-06-12] MEDS: CLOPIDOGREL BISULFATE 75 MG TABLET PO (09:42)
[2025-06-12] MEDS: LACTULOSE 10 GM/15 ML SOLUTION 20 GM PO ×2 (09:43→21:03)
[2025-06-12] MEDS: SENNOSIDES 8.6 MG TABLET PO ×2 (09:43→21:03)
[2025-06-12] MEDS: ACETAMINOPHEN 325 MG TABLET 650 MG PO (13:51)
[2025-06-12] MEDS: INSULIN REGULAR, HUMAN 100 UNIT/ML VIAL SC (17:22)
[2025-06-12] MEDS: MELATONIN 3 MG TABLET PO (21:03)
[2025-06-12] MEDS: ATORVASTATIN 40 MG TABLET PO (21:03)
[2025-06-13] VITALS (7 sets, daily range): BP systolic 110–147; BP diastolic 58–72; PULSE 48–72; RESP 16–20; TEMP 36.3–36.6; O2SAT 96–98
[2025-06-13] MEDS: LEVOTHYROXINE SODIUM 125 MCG TABLET 200 MCG PO (05:31)
[2025-06-13] MEDS: CHOLECALCIFEROL (VITAMIN D3) 25 MCG TABLET PO (08:57)
[2025-06-13] MEDS: AMIODARONE 200 MG TABLET 400 MG PO (08:57)
[2025-06-13] MEDS: APIXABAN 5 MG TABLET PO ×2 (08:57→20:10)
[2025-06-13] MEDS: CLOPIDOGREL BISULFATE 75 MG TABLET PO (08:58)
[2025-06-13] MEDS: LACTULOSE 10 GM/15 ML SOLUTION 20 GM PO ×2 (08:58→20:13)
[2025-06-13] MEDS: SENNOSIDES 8.6 MG TABLET PO ×2 (08:59→20:13)
[2025-06-13] MEDS: ACETAMINOPHEN 325 MG TABLET 650 MG PO (14:49)
[2025-06-13] MEDS: INSULIN REGULAR, HUMAN 100 UNIT/ML VIAL SC (17:19)
[2025-06-13] MEDS: ATORVASTATIN 40 MG TABLET PO (20:13)
[2025-06-13] MEDS: MELATONIN 3 MG TABLET PO (20:13)
[2025-06-14] VITALS: BP 108/57; PULSE 52; RESP 16; TEMP 36.3
[2025-06-14] MEDS: LEVOTHYROXINE SODIUM 125 MCG TABLET 200 MCG PO (05:09)
[2025-06-14 06:00] VITALS: BP 122/73; PULSE 52; RESP 16; TEMP 36.2; O2SAT 98
[2025-06-14 08:46] VITALS: BP 112/62; PULSE 60
[2025-06-14] MEDS: AMIODARONE 200 MG TABLET 400 MG PO (08:46)
[2025-06-14] MEDS: CHOLECALCIFEROL (VITAMIN D3) 25 MCG TABLET PO (08:47)
[2025-06-14] MEDS: SENNOSIDES 8.6 MG TABLET PO ×2 (08:47→20:32)
[2025-06-14] MEDS: LACTULOSE 10 GM/15 ML SOLUTION 20 GM PO ×2 (08:47→20:30)
[2025-06-14] MEDS: CLOPIDOGREL BISULFATE 75 MG TABLET PO (08:47)
[2025-06-14] MEDS: APIXABAN 5 MG TABLET PO ×2 (08:47→20:30)
[2025-06-14 12:00] VITALS: BP 111/65; PULSE 68; RESP 19; TEMP 36.3
[2025-06-14 12:34] VITALS: PULSE 53; RESP 18; O2SAT 99
[2025-06-14 17:58] VITALS: BP 145/76; PULSE 61; RESP 19; TEMP 36.9; O2SAT 98
[2025-06-14] MEDS: ATORVASTATIN 40 MG TABLET PO (20:30)
[2025-06-14] MEDS: MELATONIN 3 MG TABLET PO (20:31)
[2025-06-14] MEDS: ACETAMINOPHEN 325 MG TABLET 650 MG PO (20:33)
[2025-06-15] VITALS (7 sets, daily range): BP systolic 120–125; BP diastolic 63–80; PULSE 43–65; RESP 16–18; TEMP 36.2–36.6; O2SAT 97–98
[2025-06-15] MEDS: LEVOTHYROXINE SODIUM 125 MCG TABLET 200 MCG PO (05:33)
[2025-06-15] MEDS: SENNOSIDES 8.6 MG TABLET PO ×2 (08:05→20:32)
[2025-06-15] MEDS: CLOPIDOGREL BISULFATE 75 MG TABLET PO (08:05)
[2025-06-15] MEDS: AMIODARONE 200 MG TABLET 400 MG PO (08:05)
[2025-06-15] MEDS: CHOLECALCIFEROL (VITAMIN D3) 25 MCG TABLET PO (08:05)
[2025-06-15] MEDS: LACTULOSE 10 GM/15 ML SOLUTION 20 GM PO ×2 (08:05→20:31)
[2025-06-15] MEDS: APIXABAN 5 MG TABLET PO ×2 (08:05→20:31)
[2025-06-15 08:54] LABS: Levetiracetam (Keppra)* 17.2 mcg/mL (6.0-46.0)
[2025-06-15] MEDS: ACETAMINOPHEN 325 MG TABLET 650 MG PO ×2 (13:19→20:32)
[2025-06-15] MEDS: INSULIN REGULAR, HUMAN 100 UNIT/ML VIAL SC (17:26)
[2025-06-15] MEDS: ATORVASTATIN 40 MG TABLET PO (20:31)
[2025-06-15] MEDS: MELATONIN 3 MG TABLET PO (20:31)
[2025-06-16] VITALS: BP 129/73; PULSE 59; RESP 18; TEMP 36.2
[2025-06-16] MEDS: LEVOTHYROXINE SODIUM 125 MCG TABLET 200 MCG PO (05:25)
[2025-06-16 05:45] VITALS: BP 118/74; PULSE 63; RESP 18; TEMP 36.7; O2SAT 98
[2025-06-16 08:58] VITALS: BP 121/75; PULSE 65
[2025-06-16] MEDS: SENNOSIDES 8.6 MG TABLET PO ×2 (08:58→20:45)
[2025-06-16] MEDS: APIXABAN 5 MG TABLET PO ×2 (08:58→20:44)
[2025-06-16] MEDS: LACTULOSE 10 GM/15 ML SOLUTION 20 GM PO ×2 (08:58→20:45)
[2025-06-16] MEDS: AMIODARONE 200 MG TABLET 400 MG PO (08:58)
[2025-06-16] MEDS: CLOPIDOGREL BISULFATE 75 MG TABLET PO (08:58)
[2025-06-16] MEDS: CHOLECALCIFEROL (VITAMIN D3) 25 MCG TABLET PO (08:58)
[2025-06-16 11:40] VITALS: BP 113/63; PULSE 52; RESP 18; TEMP 37
--- NOTE | 2025-06-16 14:59 | PC.NURSE ---
At 1245, resident noted to be agitated, complaining about snakes all over the floor. Stated he didn't think they could get in bed, but they made him nervous. Ativan administered and reassurance given. At 1400, resident stated snakes were gone and he was hungry. Sugar free snacks provided.
[2025-06-16 17:09] VITALS: BP 132/73; PULSE 73; RESP 18; TEMP 36.9; O2SAT 98
[2025-06-16] MEDS: INSULIN REGULAR, HUMAN 100 UNIT/ML VIAL SC (17:39)
[2025-06-16] MEDS: ATORVASTATIN 40 MG TABLET PO (20:45)
[2025-06-16] MEDS: MELATONIN 3 MG TABLET PO (20:45)
[2025-06-17] MEDS: LEVOTHYROXINE SODIUM 125 MCG TABLET 200 MCG PO (05:19)
[2025-06-17 06:00] VITALS: BP 123/68; PULSE 48; RESP 20; TEMP 36.6; O2SAT 97
[2025-06-17 06:33] VITALS: PULSE 53; RESP 18; O2SAT 98
[2025-06-17 09:13] VITALS: BP 120/71; PULSE 55
[2025-06-17] MEDS: CHOLECALCIFEROL (VITAMIN D3) 25 MCG TABLET PO (09:14)
[2025-06-17] MEDS: CLOPIDOGREL BISULFATE 75 MG TABLET PO (09:14)
[2025-06-17] MEDS: APIXABAN 5 MG TABLET PO ×2 (09:14→20:07)
[2025-06-17] MEDS: LACTULOSE 10 GM/15 ML SOLUTION 20 GM PO ×2 (09:14→20:07)
[2025-06-17] MEDS: SENNOSIDES 8.6 MG TABLET PO ×2 (09:15→20:07)
[2025-06-17] MEDS: ACETAMINOPHEN 325 MG TABLET 650 MG PO (09:17)
[2025-06-17 12:00] VITALS: BP 120/69; PULSE 50; RESP 19; TEMP 36.3
[2025-06-17] MEDS: INSULIN REGULAR, HUMAN 100 UNIT/ML VIAL SC (17:17)
[2025-06-17 17:39] VITALS: BP 150/84; PULSE 71; RESP 18; TEMP 36.9; O2SAT 97
[2025-06-17] MEDS: MELATONIN 3 MG TABLET PO (20:07)
[2025-06-17] MEDS: ATORVASTATIN 40 MG TABLET PO (20:07)
[2025-06-17 20:33] VITALS: PULSE 59; RESP 20; O2SAT 97
[2025-06-18] VITALS (7 sets, daily range): BP systolic 122–134; BP diastolic 67–82; PULSE 46–73; RESP 16–20; TEMP 36.4–36.5; O2SAT 97–99
[2025-06-18] MEDS: LEVOTHYROXINE SODIUM 125 MCG TABLET 200 MCG PO (05:27)
[2025-06-18] MEDS: APIXABAN 5 MG TABLET PO ×2 (08:42→20:09)
[2025-06-18] MEDS: CHOLECALCIFEROL (VITAMIN D3) 25 MCG TABLET PO (08:42)
[2025-06-18] MEDS: LACTULOSE 10 GM/15 ML SOLUTION 20 GM PO ×2 (08:43→20:10)
[2025-06-18] MEDS: CLOPIDOGREL BISULFATE 75 MG TABLET PO (08:43)
[2025-06-18] MEDS: SENNOSIDES 8.6 MG TABLET PO ×2 (08:44→20:11)
[2025-06-18] MEDS: ACETAMINOPHEN 325 MG TABLET 650 MG PO ×2 (08:44→15:52)
--- NOTE | 2025-06-18 11:23 | PC.SS ---
Resident remains on room air and GT for medication and continues to eat by mouth. Resident is able to make needs known with clear speech, congressional representative will continue to make all medical decisions for resident. Resident will remain in current care until appropriate snf bed is made available at lower level of care.
[2025-06-18] MEDS: ATORVASTATIN 40 MG TABLET PO (20:10)
[2025-06-18] MEDS: MELATONIN 3 MG TABLET PO (20:11)
[2025-06-19] VITALS (7 sets, daily range): BP systolic 113–124; BP diastolic 62–76; PULSE 49–71; RESP 16–19; TEMP 36.3–37.2; O2SAT 98–99
[2025-06-19] MEDS: LEVOTHYROXINE SODIUM 125 MCG TABLET 200 MCG PO (05:32)
[2025-06-19] MEDS: SENNOSIDES 8.6 MG TABLET PO ×2 (08:55→20:23)
[2025-06-19] MEDS: LACTULOSE 10 GM/15 ML SOLUTION 20 GM PO ×2 (08:56→20:22)
[2025-06-19] MEDS: APIXABAN 5 MG TABLET PO ×2 (08:56→20:22)
[2025-06-19] MEDS: CHOLECALCIFEROL (VITAMIN D3) 25 MCG TABLET PO (08:56)
[2025-06-19] MEDS: CLOPIDOGREL BISULFATE 75 MG TABLET PO (08:56)
--- NOTE | 2025-06-19 18:02 | ESPR_ITS ---
Progress Note - SubAcute DIAGNOSIS (1) Acute arterial ischemic stroke, vertebrobasilar, brainstem: Status: Chronic Qualifiers: Laterality: left Qualified Code(s): I63.212 - Cerebral infarction due to unspecified occlusion or stenosis of left vertebral artery; I63.22 - Cerebral infarction due to unspecified occlusion or stenosis of basilar artery (2) Seizures, generalized convulsive: Status: Chronic (3) Altered glucose metabolism due to diabetes: Status: Chronic (4) Decubital ulcer: Status: Chronic (5) G tube feedings: Status: Chronic SUBJECTIVE Fever:: none Shortness of Breath:: none Pain:: none OBJECTIVE Most recent vital signs: Last Vital Signs Temp 98.9 F 06/19/25 17:17 Pulse 65 06/19/25 17:17 Resp 19 06/19/25 17:17 BP 116/70 06/19/25 17:17 Pulse Ox 98 06/19/25 16:32 O2 Del Method Blow-by 06/17/25 17:39 Speech:: mouths words (sometimes) Answers questions:: sometimes (mostly by gestures) Respiratory:: lungs clear Cardiovascular: RRR Abdomen: soft Feeding per:: G tube ASSESSMENT & PLAN Assessment: Pt seems to be fairly stable with all above diagnosis and with limited /guarded prognosis for recovery to independent living and needs all support. Family supportive Denies any pain. VSS 11-11-24 Met with family in pt's room and updated them as well as answered all questions. Reiterated limited prognosis for independent living. Neurology input on prognostic outlook and medication review followed. Repeat CT head ordered by neurologist was done and results discussed with the Neurologist who confirmed stable changes and recommended no change on medicine. This was updated with the family the No new issues , Talked with family at bedside and updated them. VSS. Started on Melatonin q hs 3 mgs prn to facilitate sleep. Pt had fever due to E. faecalis UTI and started on Vancomycin 1gm IVPB q 12 hourly on 12-28-24 Responded well and cleared. Family very actitvely participating in patient care Some constipation concerns, was given Lactulose . Being monitored but pt did not respond to treatment and was sent to the ER were he finally did poop and stabilized and returned to the [facility] at night doing well on the above treatment protocol. Now requiring Lactulose and occasional suppository for Constipation. Tolerating feeding. VSS. No new issues. Bowel movements somewhat improved on increasing Lactulose . Stable status. Pt not to be left on [employer] [place] speaking valve unattended since he cannote operate it himself. No new issues. looks comfortable. Family mostly visits daily and very supportive. Pt very stable and seems relaxed Tracheostomy capping trials initiated. Tolerating well. Family considering possibility of taking him home without the tracheostomy. Tracheostomy discontinued and family content. Pt maintaining excellent O 2 saturations on room air in the high nineties. Pt's status changed to SNF. VSS. No new issues. Pt maintaining O2 saturations on room air very well and hence diagnosis of Chronic respiratory failure with hypoxia is discontinued. Pt now has significant deficits in cognition but no confusion or altered mental status and hence diagnosis of Chronic Encephalopathy is discontinued. VSS. Tolerating PO feeding 50% and monitored. Started on Mylanta prn for gaseous discomfort. better Plan: Full support medical/nutritional and emotional towards maintaining some quality of life
[2025-06-19] MEDS: ACETAMINOPHEN 325 MG TABLET 650 MG PO (19:15)
[2025-06-19] MEDS: MELATONIN 3 MG TABLET PO (20:22)
[2025-06-19] MEDS: ATORVASTATIN 40 MG TABLET PO (20:22)
[2025-06-20] VITALS (7 sets, daily range): BP systolic 110–139; BP diastolic 58–74; PULSE 52–61; RESP 16–18; TEMP 36.4–36.9; O2SAT 98–99
[2025-06-20] MEDS: LEVOTHYROXINE SODIUM 125 MCG TABLET 200 MCG PO (05:24)
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
[2025-06-20] MEDS: ACETAMINOPHEN 325 MG TABLET 650 MG PO ×2 (08:50→20:12)
[2025-06-20] MEDS: APIXABAN 5 MG TABLET PO ×2 (08:53→20:09)
[2025-06-20] MEDS: LACTULOSE 10 GM/15 ML SOLUTION 20 GM PO ×2 (08:54→20:11)
[2025-06-20] MEDS: SENNOSIDES 8.6 MG TABLET PO ×2 (08:54→20:11)
[2025-06-20] MEDS: CHOLECALCIFEROL (VITAMIN D3) 25 MCG TABLET PO (08:54)
[2025-06-20] MEDS: CLOPIDOGREL BISULFATE 75 MG TABLET PO (08:54)
[2025-06-20] MEDS: ATORVASTATIN 40 MG TABLET PO (20:11)
[2025-06-20] MEDS: MELATONIN 3 MG TABLET PO (20:11)
[2025-06-21] VITALS: BP 126/72; PULSE 58; RESP 20; TEMP 36.3
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
[2025-06-21] MEDS: LEVOTHYROXINE SODIUM 125 MCG TABLET 200 MCG PO (05:31)
[2025-06-21] MEDS: INSULIN REGULAR, HUMAN 100 UNIT/ML VIAL SC ×2 (05:31→17:52)
[2025-06-21 06:00] VITALS: BP 125/67; PULSE 73; RESP 20; TEMP 36.1
[2025-06-21 06:19] VITALS: PULSE 60; RESP 18; O2SAT 99
[2025-06-21 09:26] VITALS: BP 000/00; PULSE 61
[2025-06-21] MEDS: AMIODARONE 200 MG TABLET 400 MG PO (09:26)
[2025-06-21] MEDS: APIXABAN 5 MG TABLET PO ×2 (09:27→20:19)
[2025-06-21] MEDS: CLOPIDOGREL BISULFATE 75 MG TABLET PO (09:28)
[2025-06-21] MEDS: SENNOSIDES 8.6 MG TABLET PO ×2 (09:28→20:20)
[2025-06-21] MEDS: LACTULOSE 10 GM/15 ML SOLUTION 20 GM PO ×2 (09:28→20:19)
[2025-06-21] MEDS: CHOLECALCIFEROL (VITAMIN D3) 25 MCG TABLET PO (09:28)
[2025-06-21] MEDS: ACETAMINOPHEN 325 MG TABLET 650 MG PO ×2 (13:48→20:21)
[2025-06-21 18:55] VITALS: PULSE 57; RESP 18; O2SAT 98
[2025-06-21] MEDS: ATORVASTATIN 40 MG TABLET PO (20:19)
[2025-06-21] MEDS: MELATONIN 3 MG TABLET PO (20:19)
[2025-06-22] VITALS: BP 130/66; PULSE 70; RESP 17; TEMP 36.9
--- NOTE | 2025-06-22 01:37 | PC.NURSE ---
at bedside request for all bed rails to be up (x4) and to be padded. Resident sometimes have non purposeful movements to extremities, sometimes bumping them on the side rails. signed consent for 4 bed rails up padded.
[2025-06-22] MEDS: LEVOTHYROXINE SODIUM 125 MCG TABLET 200 MCG PO (05:07)
[2025-06-22 06:00] VITALS: BP 131/73; PULSE 60; RESP 18; TEMP 36.3; O2SAT 98
[2025-06-22 06:15] VITALS: PULSE 55; RESP 18; O2SAT 95
[2025-06-22 08:32] VITALS: BP 129/76; PULSE 56
[2025-06-22] MEDS: APIXABAN 5 MG TABLET PO ×2 (08:33→20:43)
[2025-06-22] MEDS: CHOLECALCIFEROL (VITAMIN D3) 25 MCG TABLET PO (08:33)
[2025-06-22] MEDS: CLOPIDOGREL BISULFATE 75 MG TABLET PO (08:33)
[2025-06-22] MEDS: LACTULOSE 10 GM/15 ML SOLUTION 20 GM PO ×2 (08:34→20:43)
[2025-06-22] MEDS: SENNOSIDES 8.6 MG TABLET PO ×2 (08:34→20:43)
[2025-06-22 12:00] VITALS: BP 146/77; PULSE 56; RESP 17; TEMP 36.6
[2025-06-22] MEDS: ACETAMINOPHEN 325 MG TABLET 650 MG PO ×2 (13:22→20:44)
--- NOTE | 2025-06-22 16:10 | ESPR_ITS ---
Progress Note - SubAcute DIAGNOSIS (1) Acute arterial ischemic stroke, vertebrobasilar, brainstem: Status: Chronic Qualifiers: Laterality: left Qualified Code(s): I63.212 - Cerebral infarction due to unspecified occlusion or stenosis of left vertebral artery; I63.22 - Cerebral infarction due to unspecified occlusion or stenosis of basilar artery (2) Seizures, generalized convulsive: Status: Chronic (3) Altered glucose metabolism due to diabetes: Status: Chronic (4) Decubital ulcer: Status: Chronic (5) G tube feedings: Status: Chronic SUBJECTIVE Fever:: none Shortness of Breath:: none Pain:: none OBJECTIVE Most recent vital signs: Last Vital Signs Temp 97.3 F 07/23/25 17:19 Pulse 64 07/23/25 18:45 Resp 17 07/23/25 18:45 BP 131/76 H 07/23/25 17:19 Pulse Ox 95 07/23/25 18:45 O2 Del Method Room Air 07/23/25 06:00 Speech:: mouths words (sometimes) Answers questions:: sometimes (mostly by gestures) Respiratory:: lungs clear Cardiovascular: RRR Abdomen: soft Feeding per:: G tube ASSESSMENT & PLAN Assessment: Pt seems to be fairly stable with all above diagnosis and with limited /guarded prognosis for recovery to independent living and needs all support. Family supportive Denies any pain. VSS 11-11-24 Met with family in pt's room and updated them as well as answered all questions. Reiterated limited prognosis for independent living. Neurology input on prognostic outlook and medication review followed. Repeat CT head ordered by neurologist was done and results discussed with the Neurologist who confirmed stable changes and recommended no change on medicine. This was updated with the family the No new issues , Talked with family at bedside and updated them. VSS. Started on Melatonin q hs 3 mgs prn to facilitate sleep. Pt had fever due to E. faecalis UTI and started on Vancomycin 1gm IVPB q 12 hourly on 12-28-24 Responded well and cleared. Family very actitvely participating in patient care Some constipation concerns, was given Lactulose . Being monitored but pt did not respond to treatment and was sent to the ER were he finally did poop and stabilized and returned to the [facility] at night doing well on the above treatment protocol. Now requiring Lactulose and occasional suppository for Constipation. Tolerating feeding. VSS. No new issues. Bowel movements somewhat improved on increasing Lactulose . Stable status. Pt not to be left on [employer]' [place] speaking valve unattended since he cannote operate it himself. No new issues. looks comfortable. Family mostly visits daily and very supportive. Pt very stable and seems relaxed Tracheostomy capping trials initiated. Tolerating well. Family considering possibility of taking him home without the tracheostomy. Tracheostomy discontinued and family content. Pt maintaining excellent O 2 saturations on room air in the high nineties. Pt's status changed to SNF. VSS. No new issues. Pt maintaining O2 saturations on room air very well and hence diagnosis of Chronic respiratory failure with hypoxia is discontinued. Pt now has significant deficits in cognition but no confusion or altered mental status and hence diagnosis of Chronic Encephalopathy is discontinued. VSS. Tolerating PO feeding 50% and monitored. Started on Mylanta prn for gaseous discomfort. better. VSS. Staff mentioned about some instances when pt seems to be disoriented. I examined the pt in presence of his family and he was calm and appropriate in simple responses. Will monitor for now. Pt seen with family around. cheerful. Plan: Full support medical/nutritional and emotional towards maintaining some quality of life
[2025-06-22] MEDS: INSULIN REGULAR, HUMAN 100 UNIT/ML VIAL SC (17:30)
[2025-06-22] MEDS: ATORVASTATIN 40 MG TABLET PO (20:43)
[2025-06-22] MEDS: MELATONIN 3 MG TABLET PO (20:43)
[2025-06-22 23:52] VITALS: PULSE 55; RESP 18; O2SAT 95
[2025-06-23] VITALS: BP 129/65; PULSE 65; RESP 16; TEMP 36.6
[2025-06-23] MEDS: LEVOTHYROXINE SODIUM 125 MCG TABLET 200 MCG PO (05:05)
[2025-06-23 06:00] VITALS: BP 144/78; PULSE 67; RESP 18; TEMP 36.7; O2SAT 97
[2025-06-23 06:58] VITALS: PULSE 62; RESP 18; O2SAT 97
--- NOTE | 2025-06-23 08:14 | PD.SAPROG ---
Progress Note - SubAcute DIAGNOSIS (1) Acute arterial ischemic stroke, vertebrobasilar, brainstem: Status: Chronic Qualifiers: Laterality: left Qualified Code(s): I63.212 - Cerebral infarction due to unspecified occlusion or stenosis of left vertebral artery; I63.22 - Cerebral infarction due to unspecified occlusion or stenosis of basilar artery (2) Seizures, generalized convulsive: Status: Chronic (3) Altered glucose metabolism due to diabetes: Status: Chronic (4) Decubital ulcer: Status: Chronic (5) G tube feedings: Status: Chronic SUBJECTIVE Fever:: none Shortness of Breath:: none Pain:: none OBJECTIVE Most recent vital signs: Last Vital Signs Temp 98.1 F 06/23/25 06:00 Pulse 62 06/23/25 06:58 Resp 18 06/23/25 06:58 BP 144/78 H 06/23/25 06:00 Pulse Ox 97 06/23/25 06:58 O2 Del Method Blow-by 06/17/25 17:39 Speech:: mouths words (sometimes) Answers questions:: sometimes (mostly by gestures) Respiratory:: lungs clear Cardiovascular: RRR Abdomen: soft Feeding per:: G tube ASSESSMENT & PLAN Assessment: Pt seems to be fairly stable with all above diagnosis and with limited /guarded prognosis for recovery to independent living and needs all support. Family supportive Denies any pain. VSS 11-11-24 Met with family in pt's room and updated them as well as answered all questions. Reiterated limited prognosis for independent living. Neurology input on prognostic outlook and medication review followed. Repeat CT head ordered by neurologist was done and results discussed with the Neurologist who confirmed stable changes and recommended no change on medicine. This was updated with the family the No new issues , Talked with family at bedside and updated them. VSS. Started on Melatonin q hs 3 mgs prn to facilitate sleep. Pt had fever due to E. faecalis UTI and started on Vancomycin 1gm IVPB q 12 hourly on 12-28-24 Responded well and cleared. Family very actitvely participating in patient care Some constipation concerns, was given Lactulose . Being monitored but pt did not respond to treatment and was sent to the ER were he finally did poop and stabilized and returned to the [facility] at night doing well on the above treatment protocol. Now requiring Lactulose and occasional suppository for Constipation. Tolerating feeding. VSS. No new issues. Bowel movements somewhat improved on increasing Lactulose . Stable status. Pt not to be left on Passe' [place] speaking valve unattended since he cannote operate it himself. No new issues. looks comfortable. Family mostly visits daily and very supportive. Pt very stable and seems relaxed Tracheostomy capping trials initiated. Tolerating well. Family considering possibility of taking him home without the tracheostomy. Tracheostomy discontinued and family content. Pt maintaining excellent O 2 saturations on room air in the high nineties. Pt's status changed to SNF. VSS. No new issues. Pt maintaining O2 saturations on room air very well and hence diagnosis of Chronic respiratory failure with hypoxia is discontinued. Pt now has significant deficits in cognition but no confusion or altered mental status and hence diagnosis of Chronic Encephalopathy is discontinued. VSS. Tolerating PO feeding 50% and monitored. Started on Mylanta prn for gaseous discomfort. better. VSS Plan: Full support medical/nutritional and emotional towards maintaining some quality of life
[2025-06-23 08:38] VITALS: BP 117/71; PULSE 58
[2025-06-23] MEDS: CLOPIDOGREL BISULFATE 75 MG TABLET PO (08:39)
[2025-06-23] MEDS: CHOLECALCIFEROL (VITAMIN D3) 25 MCG TABLET PO (08:39)
[2025-06-23] MEDS: LACTULOSE 10 GM/15 ML SOLUTION 20 GM PO ×2 (08:39→20:14)
[2025-06-23] MEDS: APIXABAN 5 MG TABLET PO ×2 (08:39→20:14)
[2025-06-23] MEDS: SENNOSIDES 8.6 MG TABLET PO ×2 (08:40→20:16)
[2025-06-23 12:00] VITALS: BP 148/84; PULSE 72; RESP 18; TEMP 37
[2025-06-23] MEDS: ACETAMINOPHEN 325 MG TABLET 650 MG PO (14:42)
[2025-06-23] MEDS: INSULIN REGULAR, HUMAN 100 UNIT/ML VIAL SC (17:07)
[2025-06-23 17:08] VITALS: BP 122/64; PULSE 60; RESP 18; TEMP 36.9; O2SAT 98
[2025-06-23] MEDS: ATORVASTATIN 40 MG TABLET PO (20:14)
[2025-06-23] MEDS: MELATONIN 3 MG TABLET PO (20:15)
[2025-06-24] VITALS: BP 134/63; PULSE 59; RESP 20; TEMP 36.9
[2025-06-24 00:08] VITALS: PULSE 60; RESP 18; O2SAT 95
[2025-06-24] MEDS: INSULIN REGULAR, HUMAN 100 UNIT/ML VIAL SC ×2 (05:34→17:22)
[2025-06-24] MEDS: LEVOTHYROXINE SODIUM 125 MCG TABLET 200 MCG PO (05:36)
[2025-06-24 06:00] VITALS: BP 133/76; PULSE 56; RESP 20; TEMP 36.4; O2SAT 98
[2025-06-24 06:49] VITALS: PULSE 64; RESP 18; O2SAT 96
[2025-06-24 08:32] VITALS: BP 141/71; PULSE 62
[2025-06-24] MEDS: APIXABAN 5 MG TABLET PO ×2 (08:32→20:52)
[2025-06-24] MEDS: AMIODARONE 200 MG TABLET 400 MG PO (08:32)
[2025-06-24] MEDS: CHOLECALCIFEROL (VITAMIN D3) 25 MCG TABLET PO (08:33)
[2025-06-24] MEDS: CLOPIDOGREL BISULFATE 75 MG TABLET PO (08:33)
[2025-06-24] MEDS: LACTULOSE 10 GM/15 ML SOLUTION 20 GM PO ×2 (08:33→20:53)
[2025-06-24] MEDS: SENNOSIDES 8.6 MG TABLET PO ×2 (08:34→20:53)
[2025-06-24] MEDS: ATORVASTATIN 40 MG TABLET PO (20:53)
[2025-06-24] MEDS: MELATONIN 3 MG TABLET PO (20:53)
[2025-06-24 22:17] VITALS: PULSE 68; RESP 19; O2SAT 97
[2025-06-25] VITALS: BP 148/67; PULSE 66; RESP 18; TEMP 37.1
[2025-06-25] MEDS: LEVOTHYROXINE SODIUM 125 MCG TABLET 200 MCG PO (05:15)
[2025-06-25 06:00] VITALS: BP 140/77; PULSE 54; RESP 17; TEMP 36.5; O2SAT 98
[2025-06-25 06:35] VITALS: PULSE 62; RESP 19; O2SAT 98
[2025-06-25 08:32] VITALS: BP 134/79; PULSE 66
[2025-06-25] MEDS: APIXABAN 5 MG TABLET PO ×2 (08:32→20:57)
[2025-06-25] MEDS: AMIODARONE 200 MG TABLET 400 MG PO (08:32)
[2025-06-25] MEDS: CLOPIDOGREL BISULFATE 75 MG TABLET PO (08:33)
[2025-06-25] MEDS: LACTULOSE 10 GM/15 ML SOLUTION 20 GM PO ×2 (08:33→20:57)
[2025-06-25] MEDS: CHOLECALCIFEROL (VITAMIN D3) 25 MCG TABLET PO (08:33)
[2025-06-25] MEDS: SENNOSIDES 8.6 MG TABLET PO ×2 (08:34→20:58)
[2025-06-25 12:00] VITALS: BP 114/68; PULSE 52; RESP 18; TEMP 36.4
[2025-06-25] MEDS: ACETAMINOPHEN 325 MG TABLET 650 MG PO (15:32)
[2025-06-25] MEDS: INSULIN REGULAR, HUMAN 100 UNIT/ML VIAL SC (17:14)
[2025-06-25 18:00] VITALS: BP 115/64; PULSE 71; RESP 19; TEMP 36.5
[2025-06-25] MEDS: ATORVASTATIN 40 MG TABLET PO (20:57)
[2025-06-25] MEDS: MELATONIN 3 MG TABLET PO (20:58)
[2025-06-26] VITALS: BP 118/60; PULSE 56; RESP 16; TEMP 36.9
[2025-06-26] MEDS: LEVOTHYROXINE SODIUM 125 MCG TABLET 200 MCG PO (05:30)
[2025-06-26 06:00] VITALS: BP 126/67; PULSE 60; RESP 20; TEMP 36.4; O2SAT 98
[2025-06-26 06:28] VITALS: PULSE 63; RESP 19; O2SAT 98
[2025-06-26 09:14] VITALS: BP 111/65; PULSE 67
[2025-06-26] MEDS: AMIODARONE 200 MG TABLET 400 MG PO (09:14)
[2025-06-26] MEDS: CHOLECALCIFEROL (VITAMIN D3) 25 MCG TABLET PO (09:15)
[2025-06-26] MEDS: CLOPIDOGREL BISULFATE 75 MG TABLET PO (09:15)
[2025-06-26] MEDS: APIXABAN 5 MG TABLET PO ×2 (09:15→20:57)
[2025-06-26] MEDS: SENNOSIDES 8.6 MG TABLET PO ×2 (09:17→20:58)
[2025-06-26] MEDS: LACTULOSE 10 GM/15 ML SOLUTION 20 GM PO ×2 (09:17→20:57)
[2025-06-26] MEDS: ACETAMINOPHEN 325 MG TABLET 650 MG PO ×2 (11:53→20:59)
[2025-06-26] MEDS: INSULIN REGULAR, HUMAN 100 UNIT/ML VIAL SC (16:52)
[2025-06-26 19:13] VITALS: PULSE 70; RESP 16; O2SAT 99
[2025-06-26] MEDS: ATORVASTATIN 40 MG TABLET PO (20:57)
[2025-06-26] MEDS: MELATONIN 3 MG TABLET PO (20:58)
[2025-06-27] VITALS (7 sets, daily range): BP systolic 123–134; BP diastolic 63–68; PULSE 50–61; RESP 16–19; TEMP 36.2–36.8; O2SAT 94–99
[2025-06-27] MEDS: ACETAMINOPHEN 325 MG TABLET 650 MG PO ×2 (05:15→21:05)
[2025-06-27] MEDS: LEVOTHYROXINE SODIUM 125 MCG TABLET 200 MCG PO (05:26)
[2025-06-27] MEDS: AMIODARONE 200 MG TABLET 400 MG PO (09:09)
[2025-06-27] MEDS: CARBAMIDE PEROXIDE OTIC SOL 15 ML BTL 5 DROP BOTH EARS ×2 (09:10→21:04)
[2025-06-27] MEDS: APIXABAN 5 MG TABLET PO ×2 (09:10→21:04)
[2025-06-27] MEDS: LACTULOSE 10 GM/15 ML SOLUTION 20 GM PO (09:10)
[2025-06-27] MEDS: CLOPIDOGREL BISULFATE 75 MG TABLET PO (09:10)
[2025-06-27] MEDS: CHOLECALCIFEROL (VITAMIN D3) 25 MCG TABLET PO (09:10)
[2025-06-27] MEDS: SENNOSIDES 8.6 MG TABLET PO ×2 (09:10→21:05)
--- NOTE | 2025-06-27 15:46 | PC.SS ---
Resident remains on room air and GT for medication and continues to eat by mouth. Resident is able to make needs known with clear speech, sales representative metals will continue to make all medical decisions for resident. Resident will remain in current care until appropriate [facility]ci bed is made available at lower level of care.
--- NOTE | 2025-06-27 15:53 | PD.SAPROG ---
Progress Note - SubAcute DIAGNOSIS (1) Acute arterial ischemic stroke, vertebrobasilar, brainstem: Status: Chronic Qualifiers: Laterality: left Qualified Code(s): I63.212 - Cerebral infarction due to unspecified occlusion or stenosis of left vertebral artery; I63.22 - Cerebral infarction due to unspecified occlusion or stenosis of basilar artery (2) Seizures, generalized convulsive: Status: Chronic (3) Altered glucose metabolism due to diabetes: Status: Chronic (4) Decubital ulcer: Status: Chronic (5) G tube feedings: Status: Chronic SUBJECTIVE Fever:: none Shortness of Breath:: none Pain:: none OBJECTIVE Most recent vital signs: Last Vital Signs Temp 98.2 F 06/27/25 11:55 Pulse 53 L 06/27/25 11:55 Resp 19 06/27/25 11:55 BP 123/68 06/27/25 11:55 Pulse Ox 98 06/27/25 06:20 O2 Del Method Blow-by 06/27/25 05:43 Speech:: mouths words (sometimes) Answers questions:: sometimes (mostly by gestures) Respiratory:: lungs clear Cardiovascular: RRR Abdomen: soft Feeding per:: G tube ASSESSMENT & PLAN Assessment: Pt seems to be fairly stable with all above diagnosis and with limited /guarded prognosis for recovery to independent living and needs all support. Family supportive Denies any pain. VSS 11-11-24 Met with family in pt's room and updated them as well as answered all questions. Reiterated limited prognosis for independent living. Neurology input on prognostic outlook and medication review followed. Repeat CT head ordered by neurologist was done and results discussed with the Neurologist who confirmed stable changes and recommended no change on medicine. This was updated with the family the No new issues , Talked with family at bedside and updated them. VSS. Started on Melatonin q hs 3 mgs prn to facilitate sleep. Pt had fever due to E. faecalis UTI and started on Vancomycin 1gm IVPB q 12 hourly on 12-28-24 Responded well and cleared. Family very actitvely participating in patient care Some constipation concerns, was given Lactulose . Being monitored but pt did not respond to treatment and was sent to the ER were he finally did poop and stabilized and returned to the [facility] at night doing well on the above treatment protocol. Now requiring Lactulose and occasional suppository for Constipation. Tolerating feeding. VSS. No new issues. Bowel movements somewhat improved on increasing Lactulose . Stable status. Pt not to be left on Passe' [place] speaking valve unattended since he cannote operate it himself. No new issues. looks comfortable. Family mostly visits daily and very supportive. Pt very stable and seems relaxed Tracheostomy capping trials initiated. Tolerating well. Family considering possibility of taking him home without the tracheostomy. Tracheostomy discontinued and family content. Pt maintaining excellent O 2 saturations on room air in the high nineties. Pt's status changed to SNF. VSS. No new issues. Pt maintaining O2 saturations on room air very well and hence diagnosis of Chronic respiratory failure with hypoxia is discontinued. Pt now has significant deficits in cognition but no confusion or altered mental status and hence diagnosis of Chronic Encephalopathy is discontinued. VSS. Tolerating PO feeding 50% and monitored. Started on Mylanta prn for gaseous discomfort. better. VSS Plan: Full support medical/nutritional and emotional towards maintaining some quality of life
[2025-06-27] MEDS: INSULIN REGULAR, HUMAN 100 UNIT/ML VIAL SC (17:47)
[2025-06-27] MEDS: MELATONIN 3 MG TABLET PO (21:04)
[2025-06-27] MEDS: ATORVASTATIN 40 MG TABLET PO (21:04)
[2025-06-28] VITALS: BP 110/60; PULSE 52; RESP 17; TEMP 36.8
[2025-06-28] MEDS: LEVOTHYROXINE SODIUM 125 MCG TABLET 200 MCG PO (05:27)
[2025-06-28 05:45] VITALS: BP 93/61; PULSE 52; RESP 17; TEMP 36.3; O2SAT 98
[2025-06-28 08:49] VITALS: BP 126/65; PULSE 60
[2025-06-28] MEDS: AMIODARONE 200 MG TABLET 400 MG PO (08:49)
[2025-06-28] MEDS: APIXABAN 5 MG TABLET PO ×2 (08:50→21:08)
[2025-06-28] MEDS: SENNOSIDES 8.6 MG TABLET PO ×2 (08:50→21:11)
[2025-06-28] MEDS: CARBAMIDE PEROXIDE OTIC SOL 15 ML BTL 5 DROP BOTH EARS ×2 (08:50→21:08)
[2025-06-28] MEDS: LACTULOSE 10 GM/15 ML SOLUTION 20 GM PO ×2 (08:51→21:09)
[2025-06-28] MEDS: CHOLECALCIFEROL (VITAMIN D3) 25 MCG TABLET PO (08:51)
[2025-06-28] MEDS: CLOPIDOGREL BISULFATE 75 MG TABLET PO (08:51)
[2025-06-28] MEDS: INSULIN REGULAR, HUMAN 100 UNIT/ML VIAL SC (17:10)
[2025-06-28 17:11] VITALS: PULSE 67; RESP 16; O2SAT 98
[2025-06-28] MEDS: ATORVASTATIN 40 MG TABLET PO (21:08)
[2025-06-28] MEDS: MELATONIN 3 MG TABLET PO (21:10)
[2025-06-28] MEDS: ACETAMINOPHEN 325 MG TABLET 650 MG PO (21:11)
[2025-06-29] VITALS: BP 123/70; PULSE 55; RESP 20; TEMP 36.4
[2025-06-29] MEDS: LEVOTHYROXINE SODIUM 125 MCG TABLET 200 MCG PO (05:14)
[2025-06-29 06:00] VITALS: BP 121/67; PULSE 47; RESP 18; TEMP 36.3; O2SAT 99
[2025-06-29 07:45] VITALS: PULSE 76; RESP 19; O2SAT 97
[2025-06-29 08:43] VITALS: BP 120/69; PULSE 64
[2025-06-29] MEDS: APIXABAN 5 MG TABLET PO ×2 (08:43→20:20)
[2025-06-29] MEDS: AMIODARONE 200 MG TABLET 400 MG PO (08:43)
[2025-06-29] MEDS: CHOLECALCIFEROL (VITAMIN D3) 25 MCG TABLET PO (08:44)
[2025-06-29] MEDS: CARBAMIDE PEROXIDE OTIC SOL 15 ML BTL 5 DROP BOTH EARS ×2 (08:44→20:21)
[2025-06-29] MEDS: CLOPIDOGREL BISULFATE 75 MG TABLET PO (08:44)
[2025-06-29] MEDS: SENNOSIDES 8.6 MG TABLET PO ×2 (08:45→20:32)
[2025-06-29] MEDS: LACTULOSE 10 GM/15 ML SOLUTION 20 GM PO ×2 (08:45→20:21)
[2025-06-29] MEDS: ACETAMINOPHEN 325 MG TABLET 650 MG PO (11:00)
[2025-06-29 12:00] VITALS: BP 133/83; PULSE 56; RESP 19; TEMP 36.4
[2025-06-29] MEDS: INSULIN REGULAR, HUMAN 100 UNIT/ML VIAL SC (17:02)
[2025-06-29 17:45] VITALS: BP 155/93; PULSE 77; RESP 17; TEMP 36.7; O2SAT 98
[2025-06-29] MEDS: ATORVASTATIN 40 MG TABLET PO (20:20)
[2025-06-29] MEDS: MELATONIN 3 MG TABLET PO (20:22)
[2025-06-30] VITALS: BP 99/65; PULSE 52; RESP 16; TEMP 36.4
[2025-06-30] MEDS: LEVOTHYROXINE SODIUM 125 MCG TABLET 200 MCG PO (05:01)
[2025-06-30] MEDS: INSULIN REGULAR, HUMAN 100 UNIT/ML VIAL SC ×2 (05:44→17:39)
[2025-06-30 06:00] VITALS: BP 118/70; PULSE 52; RESP 16; TEMP 36.3; O2SAT 98
[2025-06-30 07:33] VITALS: PULSE 124; RESP 22; O2SAT 99
[2025-06-30 09:14] VITALS: BP 124/68; PULSE 67
[2025-06-30] MEDS: AMIODARONE 200 MG TABLET 400 MG PO (09:14)
[2025-06-30] MEDS: LACTULOSE 10 GM/15 ML SOLUTION 20 GM PO ×2 (09:15→20:25)
[2025-06-30] MEDS: CARBAMIDE PEROXIDE OTIC SOL 15 ML BTL 5 DROP BOTH EARS ×2 (09:15→20:25)
[2025-06-30] MEDS: APIXABAN 5 MG TABLET PO ×2 (09:15→20:24)
[2025-06-30] MEDS: CHOLECALCIFEROL (VITAMIN D3) 25 MCG TABLET PO (09:15)
[2025-06-30] MEDS: CLOPIDOGREL BISULFATE 75 MG TABLET PO (09:15)
[2025-06-30] MEDS: SENNOSIDES 8.6 MG TABLET PO ×2 (09:16→20:26)
[2025-06-30] MEDS: ACETAMINOPHEN 325 MG TABLET 650 MG PO (09:16)
[2025-06-30 12:00] VITALS: BP 109/65; PULSE 54; RESP 24; TEMP 36.6
[2025-06-30] MEDS: ATORVASTATIN 40 MG TABLET PO (20:25)
[2025-06-30] MEDS: MELATONIN 3 MG TABLET PO (20:26)
[2025-06-30] MEDS: DEX/HYPRO/GLY ARTIFICAL TEARS 225 DROP/15 ML BTL BOTH EYES (21:00)
[2025-07-01] VITALS (8 sets, daily range): BP systolic 96–128; BP diastolic 59–71; PULSE 59–67; RESP 16–20; TEMP 36.4–37.1; O2SAT 95–98
[2025-07-01] MEDS: LEVOTHYROXINE SODIUM 125 MCG TABLET 200 MCG PO (05:51)
[2025-07-01] MEDS: CLOPIDOGREL BISULFATE 75 MG TABLET PO (09:39)
[2025-07-01] MEDS: AMIODARONE 200 MG TABLET 400 MG PO (09:39)
[2025-07-01] MEDS: DEX/HYPRO/GLY ARTIFICAL TEARS 225 DROP/15 ML BTL BOTH EYES ×2 (09:39→20:57)
[2025-07-01] MEDS: CHOLECALCIFEROL (VITAMIN D3) 25 MCG TABLET PO (09:39)
[2025-07-01] MEDS: APIXABAN 5 MG TABLET PO ×2 (09:39→20:57)
[2025-07-01] MEDS: LACTULOSE 10 GM/15 ML SOLUTION 20 GM PO ×2 (09:39→20:57)
[2025-07-01] MEDS: ACETAMINOPHEN 325 MG TABLET 650 MG PO ×2 (09:40→20:58)
[2025-07-01] MEDS: SENNOSIDES 8.6 MG TABLET PO ×2 (09:40→20:58)
[2025-07-01] MEDS: INSULIN REGULAR, HUMAN 100 UNIT/ML VIAL SC (17:02)
[2025-07-01] MEDS: MELATONIN 3 MG TABLET PO (20:57)
[2025-07-01] MEDS: ATORVASTATIN 40 MG TABLET PO (20:57)
--- NOTE | 2025-07-01 21:48 | ESPR_ITS ---
Progress Note - SubAcute DIAGNOSIS (1) Acute arterial ischemic stroke, vertebrobasilar, brainstem: Status: Chronic Qualifiers: Laterality: left Qualified Code(s): I63.212 - Cerebral infarction due to unspecified occlusion or stenosis of left vertebral artery; I63.22 - Cerebral infarction due to unspecified occlusion or stenosis of basilar artery (2) Seizures, generalized convulsive: Status: Chronic (3) Altered glucose metabolism due to diabetes: Status: Chronic (4) Decubital ulcer: Status: Chronic (5) G tube feedings: Status: Chronic SUBJECTIVE Fever:: none Shortness of Breath:: none Pain:: none OBJECTIVE Most recent vital signs: Last Vital Signs Temp 98.7 F 07/01/25 17:55 Pulse 60 07/01/25 17:55 Resp 20 07/01/25 17:55 BP 128/69 07/01/25 17:55 Pulse Ox 98 07/01/25 08:41 O2 Del Method Room Air 07/01/25 05:49 Speech:: mouths words (sometimes) Answers questions:: sometimes (mostly by gestures) Respiratory:: lungs clear Cardiovascular: RRR Abdomen: soft Feeding per:: G tube ASSESSMENT & PLAN Assessment: Pt seems to be fairly stable with all above diagnosis and with limited /guarded prognosis for recovery to independent living and needs all support. Family supportive Denies any pain. VSS 11-11-24 Met with family in pt's room and updated them as well as answered all questions. Reiterated limited prognosis for independent living. Neurology input on prognostic outlook and medication review followed. Repeat CT head ordered by neurologist was done and results discussed with the Neurologist who confirmed stable changes and recommended no change on medicine. This was updated with the family the No new issues , Talked with family at bedside and updated them. VSS. Started on Melatonin q hs 3 mgs prn to facilitate sleep. Pt had fever due to E. faecalis UTI and started on Vancomycin 1gm IVPB q 12 hourly on 12-28-24 Responded well and cleared. Family very actitvely participating in patient care Some constipation concerns, was given Lactulose . Being monitored but pt did not respond to treatment and was sent to the ER were he finally did poop and stabilized and returned to the [facility] at night doing well on the above treatment protocol. Now requiring Lactulose and occasional suppository for Constipation. Tolerating feeding. VSS. No new issues. Bowel movements somewhat improved on increasing Lactulose . Stable status. Pt not to be left on [employer] [place] speaking valve unattended since he cannote operate it himself. No new issues. looks comfortable. Family mostly visits daily and very supportive. Pt very stable and seems relaxed Tracheostomy capping trials initiated. Tolerating well. Family considering possibility of taking him home without the tracheostomy. Tracheostomy discontinued and family content. Pt maintaining excellent O 2 saturations on room air in the high nineties. Pt's status changed to SNF. VSS. No new issues. Pt maintaining O2 saturations on room air very well and hence diagnosis of Chronic respiratory failure with hypoxia is discontinued. Pt now has significant deficits in cognition but no confusion or altered mental status and hence diagnosis of Chronic Encephalopathy is discontinued. VSS. Tolerating PO feeding 50% and monitored. Started on Mylanta prn for gaseous discomfort. better. VSS Plan: Full support medical/nutritional and emotional towards maintaining some quality of life
[2025-07-02] VITALS (7 sets, daily range): BP systolic 107–144; BP diastolic 64–74; PULSE 52–68; RESP 15–20; TEMP 36.4–37; O2SAT 96–99
[2025-07-02] MEDS: LEVOTHYROXINE SODIUM 125 MCG TABLET 200 MCG PO (05:08)
[2025-07-02] MEDS: APIXABAN 5 MG TABLET PO ×2 (08:40→20:38)
[2025-07-02] MEDS: CLOPIDOGREL BISULFATE 75 MG TABLET PO (08:40)
[2025-07-02] MEDS: LACTULOSE 10 GM/15 ML SOLUTION 20 GM PO ×2 (08:40→20:39)
[2025-07-02] MEDS: CHOLECALCIFEROL (VITAMIN D3) 25 MCG TABLET PO (08:40)
[2025-07-02] MEDS: DEX/HYPRO/GLY ARTIFICAL TEARS 225 DROP/15 ML BTL BOTH EYES ×2 (08:40→20:39)
[2025-07-02] MEDS: SENNOSIDES 8.6 MG TABLET PO ×2 (08:41→20:39)
[2025-07-02] MEDS: INSULIN REGULAR, HUMAN 100 UNIT/ML VIAL SC (17:30)
[2025-07-02] MEDS: ATORVASTATIN 40 MG TABLET PO (20:39)
[2025-07-02] MEDS: MELATONIN 3 MG TABLET PO (20:39)
[2025-07-03] VITALS (7 sets, daily range): BP systolic 108–125; BP diastolic 55–77; PULSE 43–80; RESP 18–20; TEMP 36.1–36.4; O2SAT 97–99
[2025-07-03] MEDS: ACETAMINOPHEN 325 MG TABLET 650 MG PO ×3 (01:22→21:15)
[2025-07-03] MEDS: LEVOTHYROXINE SODIUM 125 MCG TABLET 200 MCG PO (05:23)
[2025-07-03] MEDS: APIXABAN 5 MG TABLET PO ×2 (08:35→21:17)
[2025-07-03] MEDS: CHOLECALCIFEROL (VITAMIN D3) 25 MCG TABLET PO (08:36)
[2025-07-03] MEDS: DEX/HYPRO/GLY ARTIFICAL TEARS 225 DROP/15 ML BTL BOTH EYES ×2 (08:36→21:17)
[2025-07-03] MEDS: CLOPIDOGREL BISULFATE 75 MG TABLET PO (08:36)
[2025-07-03] MEDS: LACTULOSE 10 GM/15 ML SOLUTION 20 GM PO ×2 (08:37→21:18)
[2025-07-03] MEDS: SENNOSIDES 8.6 MG TABLET PO ×2 (08:37→21:19)
--- NOTE | 2025-07-03 13:40 | PC.SS ---
Resident remains on room air and GT for medication and continues to eat by mouth. Resident is able to make needs known with clear speech, hr representative will continue to make all medical decisions for resident. Resident will remain in current care until appropriate [facility] bed is made available at lower level of care.
[2025-07-03] MEDS: INSULIN REGULAR, HUMAN 100 UNIT/ML VIAL SC (17:39)
[2025-07-03] MEDS: ATORVASTATIN 40 MG TABLET PO (21:17)
[2025-07-03] MEDS: MELATONIN 3 MG TABLET PO (21:18)
[2025-07-04] VITALS (7 sets, daily range): BP systolic 113–143; BP diastolic 64–78; PULSE 58–71; RESP 18–19; TEMP 36.1–36.6; O2SAT 97–99
[2025-07-04] MEDS: LEVOTHYROXINE SODIUM 125 MCG TABLET 200 MCG PO (05:09)
[2025-07-04] MEDS: APIXABAN 5 MG TABLET PO ×2 (09:40→20:41)
[2025-07-04] MEDS: CHOLECALCIFEROL (VITAMIN D3) 25 MCG TABLET PO (09:40)
[2025-07-04] MEDS: SENNOSIDES 8.6 MG TABLET PO ×2 (09:41→20:42)
[2025-07-04] MEDS: ACETAMINOPHEN 325 MG TABLET 650 MG PO ×2 (09:41→20:43)
[2025-07-04] MEDS: LACTULOSE 10 GM/15 ML SOLUTION 20 GM PO ×2 (09:41→20:42)
[2025-07-04] MEDS: CLOPIDOGREL BISULFATE 75 MG TABLET PO (09:41)
[2025-07-04] MEDS: DEX/HYPRO/GLY ARTIFICAL TEARS 225 DROP/15 ML BTL BOTH EYES ×2 (09:41→20:41)
[2025-07-04] MEDS: INSULIN REGULAR, HUMAN 100 UNIT/ML VIAL SC (17:24)
[2025-07-04] MEDS: ATORVASTATIN 40 MG TABLET PO (20:41)
[2025-07-04] MEDS: MELATONIN 3 MG TABLET PO (20:42)
[2025-07-05] VITALS (9 sets, daily range): BP systolic 118–137; BP diastolic 66–83; PULSE 60–72; RESP 16–22; TEMP 36.4–37.2; O2SAT 92–95
[2025-07-05] MEDS: LEVOTHYROXINE SODIUM 125 MCG TABLET 200 MCG PO (05:27)
[2025-07-05] MEDS: INSULIN REGULAR, HUMAN 100 UNIT/ML VIAL SC ×2 (05:27→17:36)
--- NOTE | 2025-07-05 09:02 | ESPR_ITS ---
Progress Note - SubAcute DIAGNOSIS (1) Acute arterial ischemic stroke, vertebrobasilar, brainstem: Status: Chronic Qualifiers: Laterality: left Qualified Code(s): I63.212 - Cerebral infarction due to unspecified occlusion or stenosis of left vertebral artery; I63.22 - Cerebral infarction due to unspecified occlusion or stenosis of basilar artery (2) Seizures, generalized convulsive: Status: Chronic (3) Altered glucose metabolism due to diabetes: Status: Chronic (4) Decubital ulcer: Status: Chronic (5) G tube feedings: Status: Chronic SUBJECTIVE Fever:: none Shortness of Breath:: none Pain:: none OBJECTIVE Most recent vital signs: Last Vital Signs Temp 97.6 F 07/05/25 06:00 Pulse 64 07/05/25 06:00 Resp 22 H 07/05/25 06:00 BP 137/83 H 07/05/25 06:00 Pulse Ox 95 07/05/25 06:00 O2 Del Method Room Air 07/05/25 06:00 Speech:: mouths words (sometimes) Answers questions:: sometimes (mostly by gestures) Respiratory:: lungs clear Cardiovascular: RRR Abdomen: soft Feeding per:: G tube ASSESSMENT & PLAN Assessment: Pt seems to be fairly stable with all above diagnosis and with limited /guarded prognosis for recovery to independent living and needs all support. Family supportive Denies any pain. VSS 11-11-24 Met with family in pt's room and updated them as well as answered all questions. Reiterated limited prognosis for independent living. Neurology input on prognostic outlook and medication review followed. Repeat CT head ordered by neurologist was done and results discussed with the Neurologist who confirmed stable changes and recommended no change on medicine. This was updated with the family the No new issues , Talked with family at bedside and updated them. VSS. Started on Melatonin q hs 3 mgs prn to facilitate sleep. Pt had fever due to E. faecalis UTI and started on Vancomycin 1gm IVPB q 12 hourly on 12-28-24 Responded well and cleared. Family very actitvely participating in patient care Some constipation concerns, was given Lactulose . Being monitored but pt did not respond to treatment and was sent to the ER were he finally did poop and stabilized and returned to the [facility] at night doing well on the above treatment protocol. Now requiring Lactulose and occasional suppository for Constipation. Tolerating feeding. VSS. No new issues. Bowel movements somewhat improved on increasing Lactulose . Stable status. Pt not to be left on [employer] [place] speaking valve unattended since he cannote operate it himself. No new issues. looks comfortable. Family mostly visits daily and very supportive. Pt very stable and seems relaxed Tracheostomy capping trials initiated. Tolerating well. Family considering possibility of taking him home without the tracheostomy. Tracheostomy discontinued and family content. Pt maintaining excellent O 2 saturations on room air in the high nineties. Pt's status changed to SNF. VSS. No new issues. Pt maintaining O2 saturations on room air very well and hence diagnosis of Chronic respiratory failure with hypoxia is discontinued. Pt now has significant deficits in cognition but no confusion or altered mental status and hence diagnosis of Chronic Encephalopathy is discontinued. VSS. Tolerating PO feeding 50% and monitored. Started on Mylanta prn for gaseous discomfort. better. VSS. No new issues Plan: Full support medical/nutritional and emotional towards maintaining some quality of life
[2025-07-05] MEDS: ACETAMINOPHEN 325 MG TABLET 650 MG PO (09:17)
[2025-07-05] MEDS: AMIODARONE 200 MG TABLET 400 MG PO (09:19)
[2025-07-05] MEDS: CHOLECALCIFEROL (VITAMIN D3) 25 MCG TABLET PO (09:20)
[2025-07-05] MEDS: SENNOSIDES 8.6 MG TABLET PO ×2 (09:20→20:25)
[2025-07-05] MEDS: CLOPIDOGREL BISULFATE 75 MG TABLET PO (09:20)
[2025-07-05] MEDS: DEX/HYPRO/GLY ARTIFICAL TEARS 225 DROP/15 ML BTL BOTH EYES ×2 (09:20→20:25)
[2025-07-05] MEDS: APIXABAN 5 MG TABLET PO ×2 (09:20→20:24)
[2025-07-05] MEDS: LACTULOSE 10 GM/15 ML SOLUTION 20 GM PO ×2 (09:20→20:25)
[2025-07-05] MEDS: ATORVASTATIN 40 MG TABLET PO (20:25)
[2025-07-05] MEDS: MELATONIN 3 MG TABLET PO (20:25)
[2025-07-06] MEDS: INSULIN REGULAR, HUMAN 100 UNIT/ML VIAL SC ×2 (05:38→17:17)
[2025-07-06] MEDS: LEVOTHYROXINE SODIUM 125 MCG TABLET 200 MCG PO (05:39)
[2025-07-06 07:00] VITALS: PULSE 68; RESP 18; O2SAT 96
[2025-07-06 08:44] VITALS: BP 124/70; PULSE 60
[2025-07-06] MEDS: AMIODARONE 200 MG TABLET 400 MG PO (08:44)
[2025-07-06] MEDS: DEX/HYPRO/GLY ARTIFICAL TEARS 225 DROP/15 ML BTL BOTH EYES ×2 (08:45→21:02)
[2025-07-06] MEDS: APIXABAN 5 MG TABLET PO ×2 (08:45→21:02)
[2025-07-06] MEDS: CLOPIDOGREL BISULFATE 75 MG TABLET PO (08:45)
[2025-07-06] MEDS: CHOLECALCIFEROL (VITAMIN D3) 25 MCG TABLET PO (08:45)
[2025-07-06] MEDS: SENNOSIDES 8.6 MG TABLET PO ×2 (08:47→21:04)
[2025-07-06] MEDS: ACETAMINOPHEN 325 MG TABLET 650 MG PO ×2 (11:19→21:04)
[2025-07-06 12:00] VITALS: BP 145/74; PULSE 53; RESP 18; TEMP 36.6
[2025-07-06 18:00] VITALS: BP 126/76; PULSE 54; PULSE 68; RESP 18; TEMP 36.6; O2SAT 96; O2SAT 97
[2025-07-06] MEDS: ATORVASTATIN 40 MG TABLET PO (21:02)
[2025-07-06] MEDS: MELATONIN 3 MG TABLET PO (21:03)
[2025-07-06] MEDS: LACTULOSE 10 GM/15 ML SOLUTION 20 GM PO (21:03)
[2025-07-07] VITALS (7 sets, daily range): BP systolic 113–131; BP diastolic 62–76; PULSE 56–72; RESP 16–19; TEMP 36.3–36.9; O2SAT 96–99
[2025-07-07] MEDS: LEVOTHYROXINE SODIUM 125 MCG TABLET 200 MCG PO (05:12)
[2025-07-07] MEDS: INSULIN REGULAR, HUMAN 100 UNIT/ML VIAL SC ×2 (05:52→17:29)
[2025-07-07] MEDS: AMIODARONE 200 MG TABLET 400 MG PO (08:46)
[2025-07-07] MEDS: CLOPIDOGREL BISULFATE 75 MG TABLET PO (08:47)
[2025-07-07] MEDS: APIXABAN 5 MG TABLET PO ×2 (08:47→20:29)
[2025-07-07] MEDS: LACTULOSE 10 GM/15 ML SOLUTION 20 GM PO ×2 (08:48→20:29)
[2025-07-07] MEDS: CHOLECALCIFEROL (VITAMIN D3) 25 MCG TABLET PO (08:49)
[2025-07-07] MEDS: DEX/HYPRO/GLY ARTIFICAL TEARS 225 DROP/15 ML BTL BOTH EYES ×2 (08:49→20:29)
[2025-07-07] MEDS: SENNOSIDES 8.6 MG TABLET PO ×2 (08:50→20:30)
[2025-07-07] MEDS: ACETAMINOPHEN 325 MG TABLET 650 MG PO (11:52)
[2025-07-07] MEDS: ATORVASTATIN 40 MG TABLET PO (20:29)
[2025-07-07] MEDS: MELATONIN 3 MG TABLET PO (20:30)
--- NOTE | 2025-07-07 20:32 | PD.SAPROG ---
Progress Note - SubAcute DIAGNOSIS (1) Acute arterial ischemic stroke, vertebrobasilar, brainstem: Status: Chronic Qualifiers: Laterality: left Qualified Code(s): I63.212 - Cerebral infarction due to unspecified occlusion or stenosis of left vertebral artery; I63.22 - Cerebral infarction due to unspecified occlusion or stenosis of basilar artery (2) Seizures, generalized convulsive: Status: Chronic (3) Altered glucose metabolism due to diabetes: Status: Chronic (4) Decubital ulcer: Status: Chronic (5) G tube feedings: Status: Chronic SUBJECTIVE Fever:: none Shortness of Breath:: none Pain:: none OBJECTIVE Most recent vital signs: Last Vital Signs Temp 98.4 F 07/07/25 17:52 Pulse 65 07/07/25 17:52 Resp 19 07/07/25 17:52 BP 131/74 H 07/07/25 17:52 Pulse Ox 98 07/07/25 17:52 O2 Del Method Room Air 07/07/25 17:52 Speech:: mouths words (sometimes) Answers questions:: sometimes (mostly by gestures) Respiratory:: lungs clear Cardiovascular: RRR Abdomen: soft Feeding per:: G tube ASSESSMENT & PLAN Assessment: Pt seems to be fairly stable with all above diagnosis and with limited /guarded prognosis for recovery to independent living and needs all support. Family supportive Denies any pain. VSS 11-11-24 Met with family in pt's room and updated them as well as answered all questions. Reiterated limited prognosis for independent living. Neurology input on prognostic outlook and medication review followed. Repeat CT head ordered by neurologist was done and results discussed with the Neurologist who confirmed stable changes and recommended no change on medicine. This was updated with the family the No new issues , Talked with family at bedside and updated them. VSS. Started on Melatonin q hs 3 mgs prn to facilitate sleep. Pt had fever due to E. faecalis UTI and started on Vancomycin 1gm IVPB q 12 hourly on 12-28-24 Responded well and cleared. Family very actitvely participating in patient care Some constipation concerns, was given Lactulose . Being monitored but pt did not respond to treatment and was sent to the ER were he finally did poop and stabilized and returned to the [facility] at night doing well on the above treatment protocol. Now requiring Lactulose and occasional suppository for Constipation. Tolerating feeding. VSS. No new issues. Bowel movements somewhat improved on increasing Lactulose . Stable status. Pt not to be left on [place] speaking valve unattended since he cannote operate it himself. No new issues. looks comfortable. Family mostly visits daily and very supportive. Pt very stable and seems relaxed Tracheostomy capping trials initiated. Tolerating well. Family considering possibility of taking him home without the tracheostomy. Tracheostomy discontinued and family content. Pt maintaining excellent O 2 saturations on room air in the high nineties. Pt's status changed to SNF. VSS. No new issues. Pt maintaining O2 saturations on room air very well and hence diagnosis of Chronic respiratory failure with hypoxia is discontinued. Pt now has significant deficits in cognition but no confusion or altered mental status and hence diagnosis of Chronic Encephalopathy is discontinued. VSS. Tolerating PO feeding 50% and monitored. Started on Mylanta prn for gaseous discomfort. better. VSS. Staff mentioned about some instances when pt seems to be disoriented. I examined the pt in presence of his family and he was calm and appropriate in simple responses. Will monitor for now. Plan: Full support medical/nutritional and emotional towards maintaining some quality of life
[2025-07-08] VITALS (7 sets, daily range): BP systolic 107–124; BP diastolic 65–75; PULSE 50–68; RESP 16–19; TEMP 36.3–36.8; O2SAT 96–97
[2025-07-08] MEDS: LEVOTHYROXINE SODIUM 125 MCG TABLET 200 MCG PO (05:22)
[2025-07-08] MEDS: AMIODARONE 200 MG TABLET 400 MG PO (09:26)
[2025-07-08] MEDS: APIXABAN 5 MG TABLET PO ×2 (09:29→20:56)
[2025-07-08] MEDS: CLOPIDOGREL BISULFATE 75 MG TABLET PO (09:29)
[2025-07-08] MEDS: DEX/HYPRO/GLY ARTIFICAL TEARS 225 DROP/15 ML BTL BOTH EYES ×2 (09:29→20:56)
[2025-07-08] MEDS: CHOLECALCIFEROL (VITAMIN D3) 25 MCG TABLET PO (09:29)
[2025-07-08] MEDS: LACTULOSE 10 GM/15 ML SOLUTION 20 GM PO ×2 (09:29→20:57)
[2025-07-08] MEDS: SENNOSIDES 8.6 MG TABLET PO ×2 (09:30→20:57)
[2025-07-08] MEDS: INSULIN GLARGINE 100 UNIT/ML INSULN.PEN 8 UNIT SC (17:18)
[2025-07-08] MEDS: INSULIN REGULAR, HUMAN 100 UNIT/ML VIAL SC (17:18)
[2025-07-08] MEDS: ATORVASTATIN 40 MG TABLET PO (20:56)
[2025-07-08] MEDS: MELATONIN 3 MG TABLET PO (20:57)
[2025-07-08] MEDS: ACETAMINOPHEN 325 MG TABLET 650 MG PO (20:57)
[2025-07-09] VITALS: BP 120/73; PULSE 59; RESP 18; TEMP 36.4
[2025-07-09] MEDS: LEVOTHYROXINE SODIUM 125 MCG TABLET 200 MCG PO (05:23)
[2025-07-09 06:00] VITALS: BP 110/71; PULSE 50; RESP 16; TEMP 36.1; O2SAT 99
[2025-07-09 06:57] VITALS: PULSE 66; RESP 18; O2SAT 97
[2025-07-09 08:34] VITALS: BP 118/74; PULSE 52
[2025-07-09] MEDS: CHOLECALCIFEROL (VITAMIN D3) 25 MCG TABLET PO (08:35)
[2025-07-09] MEDS: APIXABAN 5 MG TABLET PO ×2 (08:35→20:53)
[2025-07-09] MEDS: CLOPIDOGREL BISULFATE 75 MG TABLET PO (08:37)
[2025-07-09] MEDS: DEX/HYPRO/GLY ARTIFICAL TEARS 225 DROP/15 ML BTL BOTH EYES ×2 (08:37→20:54)
[2025-07-09] MEDS: LACTULOSE 10 GM/15 ML SOLUTION 20 GM PO ×2 (08:37→20:54)
[2025-07-09] MEDS: SENNOSIDES 8.6 MG TABLET PO ×2 (08:37→20:54)
[2025-07-09 12:00] VITALS: BP 119/70; PULSE 54; RESP 19; TEMP 36.5
[2025-07-09 16:48] VITALS: PULSE 71; RESP 18; O2SAT 98
[2025-07-09] MEDS: INSULIN REGULAR, HUMAN 100 UNIT/ML VIAL SC (17:23)
[2025-07-09] MEDS: INSULIN GLARGINE 100 UNIT/ML INSULN.PEN 8 UNIT SC (17:23)
--- NOTE | 2025-07-09 19:08 | PC.NURSE ---
Resident was having hallucinations today, saying his sister was seating beside her. I assure him, her sister was not there. Then later went to check on resident and he said to me to be quite because his was sleeping beside him. I also assure him no one was sleeping beside him. I ask him to look at the bed, because no one was there. Then resident said, yes you are right, my is not sleeping beside me. Call light within reach.
[2025-07-09] MEDS: ATORVASTATIN 40 MG TABLET PO (20:53)
[2025-07-09] MEDS: MELATONIN 3 MG TABLET PO (20:54)
[2025-07-10] VITALS (7 sets, daily range): BP systolic 115–134; BP diastolic 65–74; PULSE 56–69; RESP 16–18; TEMP 36.3–36.5; O2SAT 95–99
[2025-07-10] MEDS: LEVOTHYROXINE SODIUM 125 MCG TABLET 200 MCG PO (05:11)
[2025-07-10] MEDS: AMIODARONE 200 MG TABLET 400 MG PO (08:41)
[2025-07-10] MEDS: CLOPIDOGREL BISULFATE 75 MG TABLET PO (08:42)
[2025-07-10] MEDS: APIXABAN 5 MG TABLET PO ×2 (08:42→21:05)
[2025-07-10] MEDS: LACTULOSE 10 GM/15 ML SOLUTION 20 GM PO ×2 (08:43→21:05)
[2025-07-10] MEDS: DEX/HYPRO/GLY ARTIFICAL TEARS 225 DROP/15 ML BTL BOTH EYES ×2 (08:44→21:05)
[2025-07-10] MEDS: SENNOSIDES 8.6 MG TABLET PO ×2 (08:45→21:05)
[2025-07-10] MEDS: CHOLECALCIFEROL (VITAMIN D3) 25 MCG TABLET PO (08:45)
--- NOTE | 2025-07-10 15:33 | PC.SS ---
Resident remains on room air and GT for medication and continues to eat by mouth. Resident is able to make needs known with clear speech, banking representative will continue to make all medical decisions for resident. Resident will remain in current care until appropriate [facility] bed is made available at lower level of care. Staff states having hallucinations. Seeing family in room on his bed.
[2025-07-10] MEDS: INSULIN REGULAR, HUMAN 100 UNIT/ML VIAL SC (17:44)
[2025-07-10] MEDS: INSULIN GLARGINE 100 UNIT/ML INSULN.PEN 8 UNIT SC (17:44)
[2025-07-10] MEDS: ATORVASTATIN 40 MG TABLET PO (21:05)
[2025-07-10] MEDS: MELATONIN 3 MG TABLET PO (21:05)
[2025-07-10] MEDS: ACETAMINOPHEN 325 MG TABLET 650 MG PO (21:06)
[2025-07-11] VITALS: BP 133/76; PULSE 54; RESP 18; TEMP 36.3; O2SAT 98
[2025-07-11 05:35] VITALS: BP 110/68; PULSE 50; RESP 18; TEMP 36.3; O2SAT 96
[2025-07-11] MEDS: INSULIN REGULAR, HUMAN 100 UNIT/ML VIAL SC (05:48)
[2025-07-11] MEDS: LEVOTHYROXINE SODIUM 125 MCG TABLET 200 MCG PO (05:51)
[2025-07-11 07:18] VITALS: PULSE 62; RESP 17; O2SAT 97
[2025-07-11 09:39] VITALS: BP 118/69; PULSE 61
[2025-07-11] MEDS: AMIODARONE 200 MG TABLET 400 MG PO (09:39)
[2025-07-11] MEDS: CHOLECALCIFEROL (VITAMIN D3) 25 MCG TABLET PO (09:40)
[2025-07-11] MEDS: SENNOSIDES 8.6 MG TABLET PO ×2 (09:40→20:26)
[2025-07-11] MEDS: DEX/HYPRO/GLY ARTIFICAL TEARS 225 DROP/15 ML BTL BOTH EYES ×2 (09:40→20:25)
[2025-07-11] MEDS: CLOPIDOGREL BISULFATE 75 MG TABLET PO (09:40)
[2025-07-11] MEDS: APIXABAN 5 MG TABLET PO ×2 (09:40→20:25)
[2025-07-11] MEDS: LACTULOSE 10 GM/15 ML SOLUTION 20 GM PO ×2 (09:40→20:26)
[2025-07-11 12:00] VITALS: BP 119/68; PULSE 59; RESP 18; TEMP 36.6
[2025-07-11] MEDS: ACETAMINOPHEN 325 MG TABLET 650 MG PO ×2 (13:15→20:27)
[2025-07-11 17:37] VITALS: BP 124/71; PULSE 49; RESP 17; TEMP 36.8
[2025-07-11] MEDS: INSULIN GLARGINE 100 UNIT/ML INSULN.PEN 8 UNIT SC (18:10)
--- NOTE | 2025-07-11 19:06 | PC.NURSE ---
Resident complaining that bugs were biting his left arm/hand after lunch. No bugs found. No redness or bite sun noted. Reassurance given to resident that there were no bugs. Tylenol given for comfort. Continue to observe.
[2025-07-11] MEDS: ATORVASTATIN 40 MG TABLET PO (20:25)
[2025-07-11] MEDS: MELATONIN 3 MG TABLET PO (20:26)
--- NOTE | 2025-07-11 22:40 | ESPR_ITS ---
Progress Note - SubAcute DIAGNOSIS (1) Acute arterial ischemic stroke, vertebrobasilar, brainstem: Status: Chronic Qualifiers: Laterality: left Qualified Code(s): I63.212 - Cerebral infarction due to unspecified occlusion or stenosis of left vertebral artery; I63.22 - Cerebral infarction due to unspecified occlusion or stenosis of basilar artery (2) Seizures, generalized convulsive: Status: Chronic (3) Altered glucose metabolism due to diabetes: Status: Chronic (4) Decubital ulcer: Status: Chronic (5) G tube feedings: Status: Chronic SUBJECTIVE Fever:: none Shortness of Breath:: none Pain:: none OBJECTIVE Most recent vital signs: Last Vital Signs Temp 98.3 F 07/11/25 17:37 Pulse 49 L 07/11/25 17:37 Resp 17 07/11/25 17:37 BP 124/71 07/11/25 17:37 Pulse Ox 97 07/11/25 07:18 O2 Del Method Room Air 07/11/25 05:35 Speech:: mouths words (sometimes) Answers questions:: sometimes (mostly by gestures) Respiratory:: lungs clear Cardiovascular: RRR Abdomen: soft Feeding per:: G tube ASSESSMENT & PLAN Assessment: Pt seems to be fairly stable with all above diagnosis and with limited /guarded prognosis for recovery to independent living and needs all support. Family supportive Denies any pain. VSS 11-11-24 Met with family in pt's room and updated them as well as answered all questions. Reiterated limited prognosis for independent living. Neurology input on prognostic outlook and medication review followed. Repeat CT head ordered by neurologist was done and results discussed with the Neurologist who confirmed stable changes and recommended no change on medicine. This was updated with the family the No new issues , Talked with family at bedside and updated them. VSS. Started on Melatonin q hs 3 mgs prn to facilitate sleep. Pt had fever due to E. faecalis UTI and started on Vancomycin 1gm IVPB q 12 hourly on 12-28-24 Responded well and cleared. Family very actitvely participating in patient care Some constipation concerns, was given Lactulose . Being monitored but pt did not respond to treatment and was sent to the ER were he finally did poop and stabilized and returned to the [facility] at night doing well on the above treatment protocol. Now requiring Lactulose and occasional suppository for Constipation. Tolerating feeding. VSS. No new issues. Bowel movements somewhat improved on increasing Lactulose . Stable status. Pt not to be left on [employer] [place] speaking valve unattended since he cannote operate it himself. No new issues. looks comfortable. Family mostly visits daily and very supportive. Pt very stable and seems relaxed Tracheostomy capping trials initiated. Tolerating well. Family considering possibility of taking him home without the tracheostomy. Tracheostomy discontinued and family content. Pt maintaining excellent O 2 saturations on room air in the high nineties. Pt's status changed to SNF. VSS. No new issues. Pt maintaining O2 saturations on room air very well and hence diagnosis of Chronic respiratory failure with hypoxia is discontinued. Pt now has significant deficits in cognition but no confusion or altered mental status and hence diagnosis of Chronic Encephalopathy is discontinued. VSS. Tolerating PO feeding 50% and monitored. Started on Mylanta prn for gaseous discomfort. better. VSS. Staff mentioned about some instances when pt seems to be disoriented. I examined the pt in presence of his family and he was calm and appropriate in simple responses. Will monitor for now. Plan: Full support medical/nutritional and emotional towards maintaining some quality of life
[2025-07-12] VITALS (8 sets, daily range): BP systolic 104–130; BP diastolic 58–74; PULSE 50–66; RESP 16–22; TEMP 36.3–36.4; O2SAT 95–98
[2025-07-12] MEDS: LEVOTHYROXINE SODIUM 125 MCG TABLET 200 MCG PO (05:07)
[2025-07-12] MEDS: INSULIN REGULAR, HUMAN 100 UNIT/ML VIAL SC ×2 (05:43→17:18)
[2025-07-12] MEDS: CHOLECALCIFEROL (VITAMIN D3) 25 MCG TABLET PO (08:17)
[2025-07-12] MEDS: APIXABAN 5 MG TABLET PO ×2 (08:17→20:35)
[2025-07-12] MEDS: LACTULOSE 10 GM/15 ML SOLUTION 20 GM PO ×2 (08:18→20:36)
[2025-07-12] MEDS: CLOPIDOGREL BISULFATE 75 MG TABLET PO (08:18)
[2025-07-12] MEDS: DEX/HYPRO/GLY ARTIFICAL TEARS 225 DROP/15 ML BTL BOTH EYES ×2 (08:18→20:35)
[2025-07-12] MEDS: SENNOSIDES 8.6 MG TABLET PO ×2 (08:19→20:37)
[2025-07-12] MEDS: INSULIN GLARGINE 100 UNIT/ML INSULN.PEN 8 UNIT SC (17:18)
[2025-07-12] MEDS: ATORVASTATIN 40 MG TABLET PO (20:35)
[2025-07-12] MEDS: MELATONIN 3 MG TABLET PO (20:37)
[2025-07-13] VITALS (7 sets, daily range): BP systolic 112–142; BP diastolic 54–76; PULSE 47–63; RESP 18–20; TEMP 36.2–36.6; O2SAT 97
[2025-07-13] MEDS: ACETAMINOPHEN 325 MG TABLET 650 MG PO (00:04)
[2025-07-13] MEDS: LEVOTHYROXINE SODIUM 125 MCG TABLET 200 MCG PO (05:23)
[2025-07-13] MEDS: DEX/HYPRO/GLY ARTIFICAL TEARS 225 DROP/15 ML BTL BOTH EYES ×2 (08:22→20:51)
[2025-07-13] MEDS: CLOPIDOGREL BISULFATE 75 MG TABLET PO (08:22)
[2025-07-13] MEDS: APIXABAN 5 MG TABLET PO ×2 (08:22→20:51)
[2025-07-13] MEDS: CHOLECALCIFEROL (VITAMIN D3) 25 MCG TABLET PO (08:22)
[2025-07-13] MEDS: SENNOSIDES 8.6 MG TABLET PO ×2 (08:23→20:51)
[2025-07-13] MEDS: LACTULOSE 10 GM/15 ML SOLUTION 20 GM PO ×2 (08:23→20:51)
--- NOTE | 2025-07-13 11:58 | PC.NURSE ---
Late entry for 07/12/25 at 1700. resident's voiced 2 concerns: one regarding Dentist and oral care, and 2nd vision exam. Discussed with ancillary team this am. Will follow up with answers for residents family.
[2025-07-13] MEDS: INSULIN REGULAR, HUMAN 100 UNIT/ML VIAL SC (17:36)
[2025-07-13] MEDS: INSULIN GLARGINE 100 UNIT/ML INSULN.PEN 8 UNIT SC (17:40)
[2025-07-13] MEDS: MELATONIN 3 MG TABLET PO (20:51)
[2025-07-13] MEDS: ATORVASTATIN 40 MG TABLET PO (20:51)
[2025-07-14] VITALS: BP 119/76; PULSE 55; RESP 20; TEMP 36.5
[2025-07-14] MEDS: LEVOTHYROXINE SODIUM 125 MCG TABLET 200 MCG PO (05:14)
[2025-07-14 06:00] VITALS: BP 110/66; PULSE 54; RESP 20; TEMP 36.5; O2SAT 98
[2025-07-14 07:07] VITALS: PULSE 64; RESP 18; O2SAT 96
[2025-07-14 08:29] VITALS: BP 113/66; PULSE 50
[2025-07-14] MEDS: CLOPIDOGREL BISULFATE 75 MG TABLET PO (08:30)
[2025-07-14] MEDS: CHOLECALCIFEROL (VITAMIN D3) 25 MCG TABLET PO (08:30)
[2025-07-14] MEDS: DEX/HYPRO/GLY ARTIFICAL TEARS 225 DROP/15 ML BTL BOTH EYES ×2 (08:30→20:45)
[2025-07-14] MEDS: APIXABAN 5 MG TABLET PO ×2 (08:30→20:45)
[2025-07-14] MEDS: LACTULOSE 10 GM/15 ML SOLUTION 20 GM PO ×2 (08:30→20:45)
[2025-07-14] MEDS: SENNOSIDES 8.6 MG TABLET PO ×2 (08:31→20:45)
[2025-07-14 11:00] VITALS: BMI 22.3
[2025-07-14 12:00] VITALS: BP 120/72; PULSE 59; RESP 18; TEMP 36.6
--- NOTE | 2025-07-14 13:25 | PC.NURSE ---
Pt stating to see animals in room, stating a scorpion bite him unable to tell me where the bite is, Nurse redirected pt letting pt know there is no animals and he wasn't in danger. Pt agreed. Pt still very restless, anxious about seeing animals. Nurse will continue to redirect and reassure pt. Nurse will continue you with plan of care.
[2025-07-14] MEDS: INSULIN GLARGINE 100 UNIT/ML INSULN.PEN 10 UNIT SC (17:11)
[2025-07-14] MEDS: INSULIN REGULAR, HUMAN 100 UNIT/ML VIAL SC (17:12)
[2025-07-14 17:50] VITALS: BP 123/69; PULSE 68; RESP 17; TEMP 36.9; O2SAT 97
[2025-07-14] MEDS: ATORVASTATIN 40 MG TABLET PO (20:45)
[2025-07-14] MEDS: MELATONIN 3 MG TABLET PO (20:45)
[2025-07-15] VITALS (7 sets, daily range): BP systolic 115–136; BP diastolic 65–78; PULSE 51–68; RESP 18–20; TEMP 36.2–36.8; O2SAT 96–99
[2025-07-15] MEDS: LEVOTHYROXINE SODIUM 125 MCG TABLET 200 MCG PO (05:38)
[2025-07-15] MEDS: APIXABAN 5 MG TABLET PO ×2 (08:21→20:59)
[2025-07-15] MEDS: LACTULOSE 10 GM/15 ML SOLUTION 20 GM PO ×2 (08:21→20:59)
[2025-07-15] MEDS: CHOLECALCIFEROL (VITAMIN D3) 25 MCG TABLET PO (08:21)
[2025-07-15] MEDS: DEX/HYPRO/GLY ARTIFICAL TEARS 225 DROP/15 ML BTL BOTH EYES ×2 (08:21→20:59)
[2025-07-15] MEDS: CLOPIDOGREL BISULFATE 75 MG TABLET PO (08:21)
[2025-07-15] MEDS: SENNOSIDES 8.6 MG TABLET PO ×2 (08:23→20:59)
--- NOTE | 2025-07-15 15:35 | PC.NURSE ---
Mr. Mcneil receives Ativan every 12 hrs. prn, his condition indicates a therapeutic response. Non-pharmacological intervention have been unsuccessful. No adverse reaction or side effects noted.
[2025-07-15] MEDS: INSULIN REGULAR, HUMAN 100 UNIT/ML VIAL SC (17:05)
[2025-07-15] MEDS: INSULIN GLARGINE 100 UNIT/ML INSULN.PEN 10 UNIT SC (17:05)
[2025-07-15] MEDS: ATORVASTATIN 40 MG TABLET PO (20:59)
[2025-07-15] MEDS: MELATONIN 3 MG TABLET PO (20:59)
[2025-07-16] VITALS (8 sets, daily range): BP systolic 109–132; BP diastolic 51–76; PULSE 48–73; RESP 18–20; TEMP 36.4–36.7; O2SAT 98–99
[2025-07-16] MEDS: LEVOTHYROXINE SODIUM 125 MCG TABLET 200 MCG PO (05:21)
[2025-07-16] MEDS: APIXABAN 5 MG TABLET PO ×2 (09:30→20:16)
[2025-07-16] MEDS: CLOPIDOGREL BISULFATE 75 MG TABLET PO (09:31)
[2025-07-16] MEDS: DEX/HYPRO/GLY ARTIFICAL TEARS 225 DROP/15 ML BTL BOTH EYES ×2 (09:31→20:17)
[2025-07-16] MEDS: CHOLECALCIFEROL (VITAMIN D3) 25 MCG TABLET PO (09:31)
[2025-07-16] MEDS: LACTULOSE 10 GM/15 ML SOLUTION 20 GM PO ×2 (09:31→20:17)
[2025-07-16] MEDS: SENNOSIDES 8.6 MG TABLET PO ×2 (09:34→20:18)
[2025-07-16] MEDS: MAGNESIUM HYDROXIDE 30 ML ORAL SUSP ML PO (09:35)
--- NOTE | 2025-07-16 12:40 | ESPR_ITS ---
Progress Note - SubAcute DIAGNOSIS (1) Acute arterial ischemic stroke, vertebrobasilar, brainstem: Status: Chronic Qualifiers: Laterality: left Qualified Code(s): I63.212 - Cerebral infarction due to unspecified occlusion or stenosis of left vertebral artery; I63.22 - Cerebral infarction due to unspecified occlusion or stenosis of basilar artery (2) Seizures, generalized convulsive: Status: Chronic (3) Altered glucose metabolism due to diabetes: Status: Chronic (4) Decubital ulcer: Status: Chronic (5) G tube feedings: Status: Chronic SUBJECTIVE Fever:: none Shortness of Breath:: none Pain:: none OBJECTIVE Most recent vital signs: Last Vital Signs Temp 98.1 F 07/16/25 05:55 Pulse 58 L 07/16/25 09:30 Resp 18 07/16/25 07:31 BP 109/63 07/16/25 09:30 Pulse Ox 98 07/16/25 07:31 O2 Del Method Blow-by 07/16/25 05:55 Speech:: mouths words (sometimes) Answers questions:: sometimes (mostly by gestures) Respiratory:: lungs clear Cardiovascular: RRR Abdomen: soft Feeding per:: G tube ASSESSMENT & PLAN Assessment: Pt seems to be fairly stable with all above diagnosis and with limited /guarded prognosis for recovery to independent living and needs all support. Family supportive Denies any pain. VSS 11-11-24 Met with family in pt's room and updated them as well as answered all questions. Reiterated limited prognosis for independent living. Neurology input on prognostic outlook and medication review followed. Repeat CT head ordered by neurologist was done and results discussed with the Neurologist who confirmed stable changes and recommended no change on medicine. This was updated with the family the No new issues , Talked with family at bedside and updated them. VSS. Started on Melatonin q hs 3 mgs prn to facilitate sleep. Pt had fever due to E. faecalis UTI and started on Vancomycin 1gm IVPB q 12 hourly on 12-28-24 Responded well and cleared. Family very actitvely participating in patient care Some constipation concerns, was given Lactulose . Being monitored but pt did not respond to treatment and was sent to the ER were he finally did poop and stabilized and returned to the [facility] at night doing well on the above treatment protocol. Now requiring Lactulose and occasional suppository for Constipation. Tolerating feeding. VSS. No new issues. Bowel movements somewhat improved on increasing Lactulose . Stable status. Pt not to be left on [employer] [place] speaking valve unattended since he cannote operate it himself. No new issues. looks comfortable. Family mostly visits daily and very supportive. Pt very stable and seems relaxed Tracheostomy capping trials initiated. Tolerating well. Family considering possibility of taking him home without the tracheostomy. Tracheostomy discontinued and family content. Pt maintaining excellent O 2 saturations on room air in the high nineties. Pt's status changed to SNF. VSS. No new issues. Pt maintaining O2 saturations on room air very well and hence diagnosis of Chronic respiratory failure with hypoxia is discontinued. Pt now has significant deficits in cognition but no confusion or altered mental status and hence diagnosis of Chronic Encephalopathy is discontinued. VSS. Tolerating PO feeding 50% and monitored. Started on Mylanta prn for gaseous discomfort. better. VSS. Staff mentioned about some instances when pt seems to be disoriented. I examined the pt in presence of his family and he was calm and appropriate in simple responses. Will monitor for now. Pt seen with family around. cheerful. Plan: Full support medical/nutritional and emotional towards maintaining some quality of life
[2025-07-16] MEDS: INSULIN GLARGINE 100 UNIT/ML INSULN.PEN 10 UNIT SC (17:13)
[2025-07-16] MEDS: INSULIN REGULAR, HUMAN 100 UNIT/ML VIAL SC (17:14)
[2025-07-16] MEDS: ATORVASTATIN 40 MG TABLET PO (20:16)
[2025-07-16] MEDS: ACETAMINOPHEN 325 MG TABLET 650 MG PO (20:18)
[2025-07-16] MEDS: MELATONIN 3 MG TABLET PO (20:18)
[2025-07-17] VITALS (7 sets, daily range): BP systolic 96–147; BP diastolic 66–77; PULSE 48–73; RESP 18–24; TEMP 36.1–36.4; O2SAT 98–99
[2025-07-17] MEDS: LEVOTHYROXINE SODIUM 125 MCG TABLET 200 MCG PO (05:16)
[2025-07-17] MEDS: DEX/HYPRO/GLY ARTIFICAL TEARS 225 DROP/15 ML BTL BOTH EYES ×2 (09:02→21:01)
[2025-07-17] MEDS: LACTULOSE 10 GM/15 ML SOLUTION 20 GM PO (09:02)
[2025-07-17] MEDS: CHOLECALCIFEROL (VITAMIN D3) 25 MCG TABLET PO (09:02)
[2025-07-17] MEDS: APIXABAN 5 MG TABLET PO ×2 (09:02→21:02)
[2025-07-17] MEDS: CLOPIDOGREL BISULFATE 75 MG TABLET PO (09:02)
[2025-07-17] MEDS: SENNOSIDES 8.6 MG TABLET PO ×2 (09:03→21:01)
[2025-07-17] MEDS: ACETAMINOPHEN 325 MG TABLET 650 MG PO (15:04)
[2025-07-17] MEDS: INSULIN REGULAR, HUMAN 100 UNIT/ML VIAL SC (17:10)
[2025-07-17] MEDS: INSULIN GLARGINE 100 UNIT/ML INSULN.PEN 10 UNIT SC (17:11)
[2025-07-17] MEDS: MELATONIN 3 MG TABLET PO (21:01)
[2025-07-17] MEDS: ATORVASTATIN 40 MG TABLET PO (21:01)
[2025-07-18] VITALS (7 sets, daily range): BP systolic 109–156; BP diastolic 65–76; PULSE 50–72; RESP 16–18; TEMP 36.2–36.5; O2SAT 98–99
[2025-07-18] MEDS: LEVOTHYROXINE SODIUM 125 MCG TABLET 200 MCG PO (05:25)
[2025-07-18] MEDS: CLOPIDOGREL BISULFATE 75 MG TABLET PO (09:14)
[2025-07-18] MEDS: DEX/HYPRO/GLY ARTIFICAL TEARS 225 DROP/15 ML BTL BOTH EYES ×2 (09:14→20:51)
[2025-07-18] MEDS: APIXABAN 5 MG TABLET PO ×2 (09:14→20:51)
[2025-07-18] MEDS: LACTULOSE 10 GM/15 ML SOLUTION 20 GM PO ×2 (09:16→20:51)
[2025-07-18] MEDS: CHOLECALCIFEROL (VITAMIN D3) 25 MCG TABLET PO (09:16)
[2025-07-18] MEDS: SENNOSIDES 8.6 MG TABLET PO ×2 (09:17→20:50)
[2025-07-18] MEDS: INSULIN REGULAR, HUMAN 100 UNIT/ML VIAL SC (17:19)
[2025-07-18] MEDS: INSULIN GLARGINE 100 UNIT/ML INSULN.PEN 10 UNIT SC (17:20)
[2025-07-18] MEDS: MELATONIN 3 MG TABLET PO (20:51)
[2025-07-18] MEDS: ATORVASTATIN 40 MG TABLET PO (20:51)
[2025-07-19] VITALS: BP 123/62; PULSE 54; RESP 18; TEMP 36.3
[2025-07-19 05:28] VITALS: BP 105/65; PULSE 77; RESP 18; TEMP 36.4; O2SAT 99
[2025-07-19] MEDS: LEVOTHYROXINE SODIUM 125 MCG TABLET 200 MCG PO (06:18)
[2025-07-19 07:04] VITALS: PULSE 66; RESP 18; O2SAT 98
[2025-07-19 08:25] VITALS: BP 109/67; PULSE 60
[2025-07-19] MEDS: APIXABAN 5 MG TABLET PO ×2 (08:25→21:01)
[2025-07-19] MEDS: AMIODARONE 200 MG TABLET 400 MG PO (08:25)
[2025-07-19] MEDS: LACTULOSE 10 GM/15 ML SOLUTION 20 GM PO ×2 (08:26→21:01)
[2025-07-19] MEDS: CLOPIDOGREL BISULFATE 75 MG TABLET PO (08:26)
[2025-07-19] MEDS: CHOLECALCIFEROL (VITAMIN D3) 25 MCG TABLET PO (08:26)
[2025-07-19] MEDS: DEX/HYPRO/GLY ARTIFICAL TEARS 225 DROP/15 ML BTL BOTH EYES ×2 (08:26→21:01)
[2025-07-19] MEDS: SENNOSIDES 8.6 MG TABLET PO ×2 (08:27→21:01)
--- NOTE | 2025-07-19 10:20 | ESPR_ITS ---
Progress Note - SubAcute DIAGNOSIS (1) Acute arterial ischemic stroke, vertebrobasilar, brainstem: Status: Chronic Qualifiers: Laterality: left Qualified Code(s): I63.212 - Cerebral infarction due to unspecified occlusion or stenosis of left vertebral artery; I63.22 - Cerebral infarction due to unspecified occlusion or stenosis of basilar artery (2) Seizures, generalized convulsive: Status: Chronic (3) Altered glucose metabolism due to diabetes: Status: Chronic (4) Decubital ulcer: Status: Chronic (5) G tube feedings: Status: Chronic SUBJECTIVE Fever:: none Shortness of Breath:: none Pain:: none OBJECTIVE Most recent vital signs: Last Vital Signs Temp 97.6 F 07/19/25 05:28 Pulse 60 07/19/25 08:25 Resp 18 07/19/25 07:04 BP 109/67 07/19/25 08:25 Pulse Ox 98 07/19/25 07:04 O2 Del Method Blow-by 07/16/25 17:02 Speech:: mouths words (sometimes) Answers questions:: sometimes (mostly by gestures) Respiratory:: lungs clear Cardiovascular: RRR Abdomen: soft Feeding per:: G tube ASSESSMENT & PLAN Assessment: Pt seems to be fairly stable with all above diagnosis and with limited /guarded prognosis for recovery to independent living and needs all support. Family supportive Denies any pain. VSS 11-11-24 Met with family in pt's room and updated them as well as answered all questions. Reiterated limited prognosis for independent living. Neurology input on prognostic outlook and medication review followed. Repeat CT head ordered by neurologist was done and results discussed with the Neurologist who confirmed stable changes and recommended no change on medicine. This was updated with the family the No new issues , Talked with family at bedside and updated them. VSS. Started on Melatonin q hs 3 mgs prn to facilitate sleep. Pt had fever due to E. faecalis UTI and started on Vancomycin 1gm IVPB q 12 hourly on 12-28-24 Responded well and cleared. Family very actitvely participating in patient care Some constipation concerns, was given Lactulose . Being monitored but pt did not respond to treatment and was sent to the ER were he finally did poop and stabilized and returned to the [facility] at night doing well on the above treatment protocol. Now requiring Lactulose and occasional suppository for Constipation. Tolerating feeding. VSS. No new issues. Bowel movements somewhat improved on increasing Lactulose . Stable status. Pt not to be left on [employer] [place] speaking valve unattended since he cannote operate it himself. No new issues. looks comfortable. Family mostly visits daily and very supportive. Pt very stable and seems relaxed Tracheostomy capping trials initiated. Tolerating well. Family considering possibility of taking him home without the tracheostomy. Tracheostomy discontinued and family content. Pt maintaining excellent O 2 saturations on room air in the high nineties. Pt's status changed to SNF. VSS. No new issues. Pt maintaining O2 saturations on room air very well and hence diagnosis of Chronic respiratory failure with hypoxia is discontinued. Pt now has significant deficits in cognition but no confusion or altered mental status and hence diagnosis of Chronic Encephalopathy is discontinued. VSS. Tolerating PO feeding 50% and monitored. Started on Mylanta prn for gaseous discomfort. better. VSS. Staff mentioned about some instances when pt seems to be disoriented. I examined the pt in presence of his family and he was calm and appropriate in simple responses. Will monitor for now. Pt seen with family around. cheerful. Plan: Full support medical/nutritional and emotional towards maintaining some quality of life
[2025-07-19] MEDS: ACETAMINOPHEN 325 MG TABLET 650 MG PO (10:30)
[2025-07-19] MEDS: INSULIN REGULAR, HUMAN 100 UNIT/ML VIAL SC (17:05)
[2025-07-19] MEDS: INSULIN GLARGINE 100 UNIT/ML INSULN.PEN 10 UNIT SC (17:06)
[2025-07-19 20:28] VITALS: PULSE 70; RESP 20; O2SAT 100
[2025-07-19] MEDS: ATORVASTATIN 40 MG TABLET PO (21:01)
[2025-07-19] MEDS: MELATONIN 3 MG TABLET PO (21:01)
[2025-07-20] VITALS: BP 125/69; PULSE 73; RESP 18; TEMP 36.8
[2025-07-20] MEDS: LEVOTHYROXINE SODIUM 125 MCG TABLET 200 MCG PO (05:29)
[2025-07-20 06:00] VITALS: BP 108/65; PULSE 52; RESP 16; TEMP 36.6; O2SAT 96
[2025-07-20 07:03] VITALS: PULSE 68; RESP 18; O2SAT 99
[2025-07-20 08:30] VITALS: BP 128/74; PULSE 60
[2025-07-20] MEDS: AMIODARONE 200 MG TABLET 400 MG PO (08:30)
[2025-07-20] MEDS: CHOLECALCIFEROL (VITAMIN D3) 25 MCG TABLET PO (08:31)
[2025-07-20] MEDS: APIXABAN 5 MG TABLET PO ×2 (08:31→20:57)
[2025-07-20] MEDS: LACTULOSE 10 GM/15 ML SOLUTION 20 GM PO ×2 (08:32→20:56)
[2025-07-20] MEDS: CLOPIDOGREL BISULFATE 75 MG TABLET PO (08:32)
[2025-07-20] MEDS: DEX/HYPRO/GLY ARTIFICAL TEARS 225 DROP/15 ML BTL BOTH EYES ×2 (08:32→20:56)
[2025-07-20] MEDS: SENNOSIDES 8.6 MG TABLET PO ×2 (08:33→20:56)
[2025-07-20 12:00] VITALS: BP 136/80; PULSE 60; RESP 20; TEMP 36.7
[2025-07-20] MEDS: INSULIN REGULAR, HUMAN 100 UNIT/ML VIAL SC (17:15)
[2025-07-20] MEDS: INSULIN GLARGINE 100 UNIT/ML INSULN.PEN 10 UNIT SC (17:17)
[2025-07-20 18:00] VITALS: BP 142/58; PULSE 60; RESP 20; TEMP 36.7; O2SAT 96
[2025-07-20] MEDS: MELATONIN 3 MG TABLET PO (20:56)
[2025-07-20] MEDS: ATORVASTATIN 40 MG TABLET PO (20:57)
[2025-07-21] VITALS (8 sets, daily range): BP systolic 120–144; BP diastolic 66–82; PULSE 46–74; RESP 16–20; TEMP 36.3–36.8; O2SAT 95–99
[2025-07-21] MEDS: LEVOTHYROXINE SODIUM 125 MCG TABLET 200 MCG PO (05:51)
[2025-07-21] MEDS: CLOPIDOGREL BISULFATE 75 MG TABLET PO (08:36)
[2025-07-21] MEDS: CHOLECALCIFEROL (VITAMIN D3) 25 MCG TABLET PO (08:36)
[2025-07-21] MEDS: APIXABAN 5 MG TABLET PO ×2 (08:36→21:38)
[2025-07-21] MEDS: SENNOSIDES 8.6 MG TABLET PO ×2 (08:37→20:30)
[2025-07-21] MEDS: DEX/HYPRO/GLY ARTIFICAL TEARS 225 DROP/15 ML BTL BOTH EYES ×2 (08:37→20:29)
[2025-07-21] MEDS: LACTULOSE 10 GM/15 ML SOLUTION 20 GM PO ×2 (08:37→20:29)
--- NOTE | 2025-07-21 15:50 | PC.NURSE ---
Resident on regular sliding scale coverage BID and on Lantus 10 units at 18:00. Dr East reviewed resident's BS results with order received to increase it to 12 units.
[2025-07-21] MEDS: INSULIN REGULAR, HUMAN 100 UNIT/ML VIAL SC (17:07)
[2025-07-21] MEDS: INSULIN GLARGINE 100 UNIT/ML INSULN.PEN 12 UNIT SC (17:08)
--- NOTE | 2025-07-21 18:07 | PC.NURSE ---
Resident still with gtube in place and not being used. Not on tube feeding. Resident gest meal tray for breakfast, lunch and dinner. Resident usually eats 100% of his meal and been drinking thickened liquids w/o difficulty. Resident takes medications by mouth. Order received from Dr East to discontinue the gtube. Resident's at bedside and made aware.
[2025-07-21] MEDS: ATORVASTATIN 40 MG TABLET PO (20:29)
[2025-07-21] MEDS: MELATONIN 3 MG TABLET PO (20:30)
[2025-07-22] VITALS (7 sets, daily range): BP systolic 106–159; BP diastolic 54–88; PULSE 55–78; RESP 16–20; TEMP 36.4–36.9; O2SAT 96–99
[2025-07-22] MEDS: LEVOTHYROXINE SODIUM 125 MCG TABLET 200 MCG PO (05:24)
[2025-07-22] MEDS: CHOLECALCIFEROL (VITAMIN D3) 25 MCG TABLET PO (08:32)
[2025-07-22] MEDS: AMIODARONE 200 MG TABLET 400 MG PO (08:32)
[2025-07-22] MEDS: APIXABAN 5 MG TABLET PO ×2 (08:32→21:25)
[2025-07-22] MEDS: CLOPIDOGREL BISULFATE 75 MG TABLET PO (08:32)
[2025-07-22] MEDS: SENNOSIDES 8.6 MG TABLET PO ×2 (08:33→21:27)
[2025-07-22] MEDS: DEX/HYPRO/GLY ARTIFICAL TEARS 225 DROP/15 ML BTL BOTH EYES ×2 (08:33→21:26)
[2025-07-22] MEDS: LACTULOSE 10 GM/15 ML SOLUTION 20 GM PO ×2 (08:33→21:26)
[2025-07-22] MEDS: ACETAMINOPHEN 325 MG TABLET 650 MG PO ×2 (08:35→21:20)
[2025-07-22] MEDS: INSULIN REGULAR, HUMAN 100 UNIT/ML VIAL SC (17:06)
[2025-07-22] MEDS: INSULIN GLARGINE 100 UNIT/ML INSULN.PEN 12 UNIT SC (17:07)
[2025-07-22] MEDS: ATORVASTATIN 40 MG TABLET PO (21:26)
[2025-07-22] MEDS: MELATONIN 3 MG TABLET PO (21:27)
[2025-07-23] VITALS (7 sets, daily range): BP systolic 114–138; BP diastolic 65–78; PULSE 45–73; RESP 16–20; TEMP 36.3–36.6; O2SAT 95–99
[2025-07-23] MEDS: LEVOTHYROXINE SODIUM 125 MCG TABLET 200 MCG PO (06:08)
[2025-07-23] MEDS: LACTULOSE 10 GM/15 ML SOLUTION 20 GM PO ×2 (08:35→20:49)
[2025-07-23] MEDS: SENNOSIDES 8.6 MG TABLET PO ×2 (08:35→20:49)
[2025-07-23] MEDS: DEX/HYPRO/GLY ARTIFICAL TEARS 225 DROP/15 ML BTL BOTH EYES ×2 (08:35→20:49)
[2025-07-23] MEDS: CHOLECALCIFEROL (VITAMIN D3) 25 MCG TABLET PO (08:36)
[2025-07-23] MEDS: AMIODARONE 200 MG TABLET 400 MG PO (08:36)
[2025-07-23] MEDS: CLOPIDOGREL BISULFATE 75 MG TABLET PO (08:36)
[2025-07-23] MEDS: APIXABAN 5 MG TABLET PO ×2 (08:36→20:49)
[2025-07-23] MEDS: INSULIN GLARGINE 100 UNIT/ML INSULN.PEN 12 UNIT SC (17:19)
[2025-07-23] MEDS: ATORVASTATIN 40 MG TABLET PO (20:49)
[2025-07-23] MEDS: MELATONIN 3 MG TABLET PO (20:49)
[2025-07-24] VITALS: BP 135/74; PULSE 57; RESP 18; TEMP 36.4
[2025-07-24] MEDS: LEVOTHYROXINE SODIUM 125 MCG TABLET 200 MCG PO (05:28)
[2025-07-24 05:47] VITALS: BP 123/67; PULSE 68; RESP 18; TEMP 36.4; O2SAT 99
[2025-07-24 08:36] VITALS: BP 127/73; PULSE 65
[2025-07-24] MEDS: AMIODARONE 200 MG TABLET 400 MG PO (08:36)
[2025-07-24] MEDS: CLOPIDOGREL BISULFATE 75 MG TABLET PO (08:37)
[2025-07-24] MEDS: LACTULOSE 10 GM/15 ML SOLUTION 20 GM PO ×2 (08:37→20:36)
[2025-07-24] MEDS: APIXABAN 5 MG TABLET PO ×2 (08:37→20:36)
[2025-07-24] MEDS: DEX/HYPRO/GLY ARTIFICAL TEARS 225 DROP/15 ML BTL BOTH EYES ×2 (08:37→20:36)
[2025-07-24] MEDS: CHOLECALCIFEROL (VITAMIN D3) 25 MCG TABLET PO (08:37)
[2025-07-24] MEDS: SENNOSIDES 8.6 MG TABLET PO ×2 (08:39→20:36)
[2025-07-24 12:00] VITALS: BP 126/75; PULSE 49; RESP 20; TEMP 36
[2025-07-24] MEDS: ACETAMINOPHEN 325 MG TABLET 650 MG PO (16:32)
[2025-07-24] MEDS: INSULIN REGULAR, HUMAN 100 UNIT/ML VIAL SC (17:19)
[2025-07-24] MEDS: INSULIN GLARGINE 100 UNIT/ML INSULN.PEN 12 UNIT SC (17:20)
[2025-07-24 17:55] VITALS: BP 128/65; PULSE 47; RESP 21; TEMP 36.1
[2025-07-24 19:14] VITALS: PULSE 69; RESP 18; O2SAT 97
[2025-07-24] MEDS: MELATONIN 3 MG TABLET PO (20:36)
[2025-07-24] MEDS: ATORVASTATIN 40 MG TABLET PO (20:36)
[2025-07-25] VITALS: BP 136/80; PULSE 71; RESP 20; TEMP 36.4
[2025-07-25] MEDS: LEVOTHYROXINE SODIUM 125 MCG TABLET 200 MCG PO (05:16)
[2025-07-25 06:00] VITALS: BP 117/72; PULSE 54; RESP 20; TEMP 36.2; O2SAT 96
[2025-07-25 07:01] VITALS: PULSE 62; RESP 19; O2SAT 95
[2025-07-25 08:42] VITALS: BP 131/71; PULSE 51
[2025-07-25] MEDS: CHOLECALCIFEROL (VITAMIN D3) 25 MCG TABLET PO (08:43)
[2025-07-25] MEDS: APIXABAN 5 MG TABLET PO ×2 (08:43→21:05)
[2025-07-25] MEDS: CLOPIDOGREL BISULFATE 75 MG TABLET PO (08:44)
[2025-07-25] MEDS: DEX/HYPRO/GLY ARTIFICAL TEARS 225 DROP/15 ML BTL BOTH EYES ×2 (08:44→20:29)
[2025-07-25] MEDS: LACTULOSE 10 GM/15 ML SOLUTION 20 GM PO ×2 (08:44→20:29)
[2025-07-25] MEDS: SENNOSIDES 8.6 MG TABLET PO ×2 (08:44→20:31)
[2025-07-25 11:54] VITALS: BP 126/74; PULSE 58; RESP 18; TEMP 36.8
[2025-07-25] MEDS: INSULIN REGULAR, HUMAN 100 UNIT/ML VIAL SC (17:20)
[2025-07-25] MEDS: INSULIN GLARGINE 100 UNIT/ML INSULN.PEN 12 UNIT SC (17:21)
[2025-07-25 17:53] VITALS: BP 138/76; PULSE 47; RESP 18; TEMP 36.6; O2SAT 99
[2025-07-25] MEDS: ATORVASTATIN 40 MG TABLET PO (20:29)
[2025-07-25] MEDS: MELATONIN 3 MG TABLET PO (20:30)
[2025-07-26] VITALS (7 sets, daily range): BP systolic 118–146; BP diastolic 66–78; PULSE 45–73; RESP 16–20; TEMP 36.3–37.1; O2SAT 96–100
[2025-07-26] MEDS: LEVOTHYROXINE SODIUM 125 MCG TABLET 200 MCG PO (05:30)
[2025-07-26] MEDS: AMIODARONE 200 MG TABLET 400 MG PO (08:18)
[2025-07-26] MEDS: APIXABAN 5 MG TABLET PO ×2 (08:18→20:55)
[2025-07-26] MEDS: CHOLECALCIFEROL (VITAMIN D3) 25 MCG TABLET PO (08:20)
[2025-07-26] MEDS: CLOPIDOGREL BISULFATE 75 MG TABLET PO (08:20)
[2025-07-26] MEDS: DEX/HYPRO/GLY ARTIFICAL TEARS 225 DROP/15 ML BTL BOTH EYES ×2 (08:20→20:55)
[2025-07-26] MEDS: LACTULOSE 10 GM/15 ML SOLUTION 20 GM PO ×2 (08:20→20:55)
[2025-07-26] MEDS: SENNOSIDES 8.6 MG TABLET PO ×2 (09:20→20:55)
[2025-07-26] MEDS: INSULIN REGULAR, HUMAN 100 UNIT/ML VIAL SC (17:19)
[2025-07-26] MEDS: INSULIN GLARGINE 100 UNIT/ML INSULN.PEN 12 UNIT SC (17:22)
[2025-07-26] MEDS: ATORVASTATIN 40 MG TABLET PO (20:55)
[2025-07-26] MEDS: MELATONIN 3 MG TABLET PO (20:55)
[2025-07-27] VITALS (7 sets, daily range): BP systolic 96–133; BP diastolic 62–76; PULSE 47–65; RESP 18–21; TEMP 36.1–37.2; O2SAT 97–98
[2025-07-27] MEDS: LEVOTHYROXINE SODIUM 125 MCG TABLET 200 MCG PO (05:20)
[2025-07-27] MEDS: ACETAMINOPHEN 325 MG TABLET 650 MG PO (05:27)
[2025-07-27] MEDS: INSULIN REGULAR, HUMAN 100 UNIT/ML VIAL SC ×2 (05:38→17:31)
[2025-07-27] MEDS: CLOPIDOGREL BISULFATE 75 MG TABLET PO (09:50)
[2025-07-27] MEDS: APIXABAN 5 MG TABLET PO ×2 (09:51→20:41)
[2025-07-27] MEDS: DEX/HYPRO/GLY ARTIFICAL TEARS 225 DROP/15 ML BTL BOTH EYES ×2 (09:53→20:41)
[2025-07-27] MEDS: LACTULOSE 10 GM/15 ML SOLUTION 20 GM PO ×2 (09:53→20:41)
[2025-07-27] MEDS: SENNOSIDES 8.6 MG TABLET PO ×2 (09:54→20:40)
[2025-07-27] MEDS: CHOLECALCIFEROL (VITAMIN D3) 25 MCG TABLET PO (09:54)
[2025-07-27] MEDS: INSULIN GLARGINE 100 UNIT/ML INSULN.PEN 12 UNIT SC (17:30)
[2025-07-27] MEDS: ATORVASTATIN 40 MG TABLET PO (20:41)
[2025-07-27] MEDS: MELATONIN 3 MG TABLET PO (20:41)
[2025-07-28] VITALS: BP 126/70; PULSE 67; RESP 18; TEMP 36.9
[2025-07-28] MEDS: LEVOTHYROXINE SODIUM 125 MCG TABLET 200 MCG PO (05:19)
[2025-07-28] MEDS: INSULIN REGULAR, HUMAN 100 UNIT/ML VIAL SC ×2 (05:47→17:21)
[2025-07-28 06:00] VITALS: BP 129/78; PULSE 60; RESP 20; TEMP 36.7; O2SAT 99
--- NOTE | 2025-07-28 07:43 | ESPR_ITS ---
Progress Note - SubAcute DIAGNOSIS (1) Acute arterial ischemic stroke, vertebrobasilar, brainstem: Status: Chronic Qualifiers: Laterality: left Qualified Code(s): I63.212 - Cerebral infarction due to unspecified occlusion or stenosis of left vertebral artery; I63.22 - Cerebral infarction due to unspecified occlusion or stenosis of basilar artery (2) Seizures, generalized convulsive: Status: Chronic (3) Altered glucose metabolism due to diabetes: Status: Chronic (4) Decubital ulcer: Status: Chronic (5) G tube feedings: Status: Chronic SUBJECTIVE Fever:: none Shortness of Breath:: none Pain:: none OBJECTIVE Most recent vital signs: Last Vital Signs Temp 98.1 F 07/28/25 06:00 Pulse 60 07/28/25 06:00 Resp 20 07/28/25 06:00 BP 129/78 07/28/25 06:00 Pulse Ox 99 07/28/25 06:00 O2 Del Method Room Air 07/28/25 06:00 Speech:: mouths words (sometimes) Answers questions:: sometimes (mostly by gestures) Respiratory:: lungs clear Cardiovascular: RRR Abdomen: soft Feeding per:: G tube ASSESSMENT & PLAN Assessment: Pt seems to be fairly stable with all above diagnosis and with limited /guarded prognosis for recovery to independent living and needs all support. Family supportive Denies any pain. VSS 11-11-24 Met with family in pt's room and updated them as well as answered all questions. Reiterated limited prognosis for independent living. Neurology input on prognostic outlook and medication review followed. Repeat CT head ordered by neurologist was done and results discussed with the Neurologist who confirmed stable changes and recommended no change on medicine. This was updated with the family the No new issues , Talked with family at bedside and updated them. VSS. Started on Melatonin q hs 3 mgs prn to facilitate sleep. Pt had fever due to E. faecalis UTI and started on Vancomycin 1gm IVPB q 12 hourly on 12-28-24 Responded well and cleared. Family very actitvely participating in patient care Some constipation concerns, was given Lactulose . Being monitored but pt did not respond to treatment and was sent to the ER were he finally did poop and stabilized and returned to the [facility] at night doing well on the above treatment protocol. Now requiring Lactulose and occasional suppository for Constipation. Tolerating feeding. VSS. No new issues. Bowel movements somewhat improved on increasing Lactulose . Stable status. Pt not to be left on Passe[employer] [place] speaking valve unattended since he cannote operate it himself. No new issues. looks comfortable. Family mostly visits daily and very supportive. Pt very stable and seems relaxed Tracheostomy capping trials initiated. Tolerating well. Family considering possibility of taking him home without the tracheostomy. Tracheostomy discontinued and family content. Pt maintaining excellent O 2 saturations on room air in the high nineties. Pt's status changed to SNF. VSS. No new issues. Pt maintaining O2 saturations on room air very well and hence diagnosis of Chronic respiratory failure with hypoxia is discontinued. Pt now has significant deficits in cognition but no confusion or altered mental status and hence diagnosis of Chronic Encephalopathy is discontinued. VSS. Tolerating PO feeding 50% and monitored. Started on Mylanta prn for gaseous discomfort. better. VSS. Staff mentioned about some instances when pt seems to be disoriented. I examined the pt in presence of his family and he was calm and appropriate in simple responses. Will monitor for now. Pt seen with family around. cheerful.VSS Plan: Full support medical/nutritional and emotional towards maintaining some quality of life
[2025-07-28 09:24] VITALS: BP 114/68; PULSE 56
[2025-07-28] MEDS: CHOLECALCIFEROL (VITAMIN D3) 25 MCG TABLET PO (09:25)
[2025-07-28] MEDS: APIXABAN 5 MG TABLET PO ×2 (09:25→20:58)
[2025-07-28] MEDS: DEX/HYPRO/GLY ARTIFICAL TEARS 225 DROP/15 ML BTL BOTH EYES ×2 (09:26→20:59)
[2025-07-28] MEDS: SENNOSIDES 8.6 MG TABLET PO ×2 (09:26→21:00)
[2025-07-28] MEDS: CLOPIDOGREL BISULFATE 75 MG TABLET PO (09:26)
[2025-07-28] MEDS: LACTULOSE 10 GM/15 ML SOLUTION 20 GM PO ×2 (09:26→20:59)
[2025-07-28 12:00] VITALS: BP 115/72; PULSE 62; RESP 18; TEMP 36.7
[2025-07-28 14:07] VITALS: PULSE 69; RESP 18; O2SAT 97
[2025-07-28] MEDS: INSULIN GLARGINE 100 UNIT/ML INSULN.PEN 12 UNIT SC (17:20)
[2025-07-28 17:49] VITALS: BP 130/68; PULSE 52; RESP 19; TEMP 36.6; O2SAT 94
[2025-07-28] MEDS: ATORVASTATIN 40 MG TABLET PO (20:58)
[2025-07-28] MEDS: MELATONIN 3 MG TABLET PO (20:59)
[2025-07-29] VITALS (8 sets, daily range): BP systolic 116–136; BP diastolic 65–82; PULSE 51–72; RESP 18–20; TEMP 36.1–36.9; O2SAT 96–99
[2025-07-29] MEDS: INSULIN REGULAR, HUMAN 100 UNIT/ML VIAL SC (05:30)
[2025-07-29] MEDS: LEVOTHYROXINE SODIUM 125 MCG TABLET 200 MCG PO (05:31)
[2025-07-29] MEDS: APIXABAN 5 MG TABLET PO ×2 (08:27→20:48)
[2025-07-29] MEDS: LACTULOSE 10 GM/15 ML SOLUTION 20 GM PO ×2 (08:28→20:50)
[2025-07-29] MEDS: CHOLECALCIFEROL (VITAMIN D3) 25 MCG TABLET PO (08:28)
[2025-07-29] MEDS: DEX/HYPRO/GLY ARTIFICAL TEARS 225 DROP/15 ML BTL BOTH EYES ×2 (08:28→20:50)
[2025-07-29] MEDS: CLOPIDOGREL BISULFATE 75 MG TABLET PO (08:28)
[2025-07-29] MEDS: SENNOSIDES 8.6 MG TABLET PO ×2 (08:29→20:51)
--- NOTE | 2025-07-29 13:10 | PC.SS ---
Resident remains on room air and GT for medication and continues to eat by mouth. Resident is able to make needs known with clear speech, industrial relations representative will continue to make all medical decisions for resident. Resident will remain in current care until appropriate care home bed is made available at lower level of care. Staff states having hallucinations. Seeing family in room on his bed.
[2025-07-29] MEDS: INSULIN GLARGINE 100 UNIT/ML INSULN.PEN 12 UNIT SC (17:15)
[2025-07-29] MEDS: ATORVASTATIN 40 MG TABLET PO (20:50)
[2025-07-29] MEDS: MELATONIN 3 MG TABLET PO (20:51)
[2025-07-30] VITALS: BP 124/72; PULSE 59; RESP 20; TEMP 36.7
[2025-07-30] MEDS: LEVOTHYROXINE SODIUM 125 MCG TABLET 200 MCG PO (05:06)
[2025-07-30] MEDS: INSULIN REGULAR, HUMAN 100 UNIT/ML VIAL SC ×2 (05:46→17:11)
[2025-07-30 06:00] VITALS: BP 118/73; PULSE 60; RESP 20; TEMP 36.6; O2SAT 99
[2025-07-30 08:35] VITALS: BP 126/76; PULSE 55
[2025-07-30] MEDS: CHOLECALCIFEROL (VITAMIN D3) 25 MCG TABLET PO (08:36)
[2025-07-30] MEDS: APIXABAN 5 MG TABLET PO ×2 (08:36→20:58)
[2025-07-30] MEDS: CLOPIDOGREL BISULFATE 75 MG TABLET PO (08:37)
[2025-07-30] MEDS: DEX/HYPRO/GLY ARTIFICAL TEARS 225 DROP/15 ML BTL BOTH EYES ×2 (08:37→20:58)
[2025-07-30] MEDS: LACTULOSE 10 GM/15 ML SOLUTION 20 GM PO ×2 (08:37→20:57)
[2025-07-30] MEDS: SENNOSIDES 8.6 MG TABLET PO ×2 (08:38→20:57)
[2025-07-30 12:00] VITALS: BP 117/73; PULSE 58; RESP 17; TEMP 36.7
[2025-07-30] MEDS: INSULIN GLARGINE 100 UNIT/ML INSULN.PEN 12 UNIT SC (17:11)
[2025-07-30 18:00] VITALS: BP 120/65; PULSE 56; RESP 17; TEMP 37.1; O2SAT 97
[2025-07-30] MEDS: MELATONIN 3 MG TABLET PO (20:57)
[2025-07-30] MEDS: ATORVASTATIN 40 MG TABLET PO (20:58)
[2025-07-30 21:10] VITALS: PULSE 72; RESP 18; O2SAT 98
[2025-07-31] VITALS: BP 120/74; PULSE 61; RESP 18; TEMP 36.6; O2SAT 97
[2025-07-31] MEDS: LEVOTHYROXINE SODIUM 125 MCG TABLET 200 MCG PO (05:23)
[2025-07-31 06:00] VITALS: BP 113/71; PULSE 48; RESP 18; TEMP 36.4; O2SAT 96
[2025-07-31 08:27] VITALS: BP 100/58; PULSE 53
[2025-07-31] MEDS: APIXABAN 5 MG TABLET PO ×2 (08:28→21:11)
[2025-07-31] MEDS: CHOLECALCIFEROL (VITAMIN D3) 25 MCG TABLET PO (08:29)
[2025-07-31] MEDS: CLOPIDOGREL BISULFATE 75 MG TABLET PO (08:29)
[2025-07-31] MEDS: DEX/HYPRO/GLY ARTIFICAL TEARS 225 DROP/15 ML BTL BOTH EYES ×2 (08:30→21:11)
[2025-07-31] MEDS: SENNOSIDES 8.6 MG TABLET PO ×2 (08:30→21:11)
[2025-07-31] MEDS: LACTULOSE 10 GM/15 ML SOLUTION 20 GM PO ×2 (08:30→21:11)
[2025-07-31 12:00] VITALS: BP 123/66; PULSE 55; RESP 19; TEMP 36.7
--- NOTE | 2025-07-31 13:58 | PC.SS ---
Addendum entered by Marylu Hernandez RN 08/03/25 11:43: Mr Tarun juan not have a GT, it has been removed since he is eating well. Original Note: Resident remains on room air and GT for medication and continues to eat by mouth. Resident is able to make needs known with clear speech, sales representative womens health will continue to make all medical decisions for resident. Resident will remain in current care until appropriate long-term bed is made available at lower level of care.
[2025-07-31] MEDS: INSULIN REGULAR, HUMAN 100 UNIT/ML VIAL SC (17:32)
[2025-07-31] MEDS: INSULIN GLARGINE 100 UNIT/ML INSULN.PEN 12 UNIT SC (17:32)
[2025-07-31 18:00] VITALS: BP 149/78; PULSE 57; RESP 18; TEMP 36.8; O2SAT 97
[2025-07-31] MEDS: ATORVASTATIN 40 MG TABLET PO (21:11)
[2025-07-31] MEDS: MELATONIN 3 MG TABLET PO (21:11)
[2025-07-31 21:32] VITALS: PULSE 68; RESP 19; O2SAT 97
--- NOTE | 2025-07-31 21:52 | ESPR_ITS ---
Progress Note - SubAcute DIAGNOSIS (1) Acute arterial ischemic stroke, vertebrobasilar, brainstem: Status: Chronic Qualifiers: Laterality: left Qualified Code(s): I63.212 - Cerebral infarction due to unspecified occlusion or stenosis of left vertebral artery; I63.22 - Cerebral infarction due to unspecified occlusion or stenosis of basilar artery (2) Seizures, generalized convulsive: Status: Chronic (3) Altered glucose metabolism due to diabetes: Status: Chronic (4) Decubital ulcer: Status: Chronic (5) G tube feedings: Status: Chronic SUBJECTIVE Fever:: none Shortness of Breath:: none Pain:: none OBJECTIVE Most recent vital signs: Last Vital Signs Temp 98.3 F 07/31/25 17:35 Pulse 57 L 07/31/25 17:35 Resp 18 07/31/25 17:35 BP 149/78 H 07/31/25 17:35 Pulse Ox 97 07/31/25 17:35 O2 Del Method Room Air 07/31/25 06:00 Speech:: mouths words (sometimes) Answers questions:: sometimes (mostly by gestures) Respiratory:: lungs clear Cardiovascular: RRR Abdomen: soft Feeding per:: G tube ASSESSMENT & PLAN Assessment: Pt seems to be fairly stable with all above diagnosis and with limited /guarded prognosis for recovery to independent living and needs all support. Family supportive Denies any pain. VSS 11-11-24 Met with family in pt's room and updated them as well as answered all questions. Reiterated limited prognosis for independent living. Neurology input on prognostic outlook and medication review followed. Repeat CT head ordered by neurologist was done and results discussed with the Neurologist who confirmed stable changes and recommended no change on medicine. This was updated with the family the No new issues , Talked with family at bedside and updated them. VSS. Started on Melatonin q hs 3 mgs prn to facilitate sleep. Pt had fever due to E. faecalis UTI and started on Vancomycin 1gm IVPB q 12 hourly on 12-28-24 Responded well and cleared. Family very actitvely participating in patient care Some constipation concerns, was given Lactulose . Being monitored but pt did not respond to treatment and was sent to the ER were he finally did poop and stabilized and returned to the [facility] at night doing well on the above treatment protocol. Now requiring Lactulose and occasional suppository for Constipation. Tolerating feeding. VSS. No new issues. Bowel movements somewhat improved on increasing Lactulose . Stable status. Pt not to be left on Passe' [place] speaking valve unattended since he cannote operate it himself. No new issues. looks comfortable. Family mostly visits daily and very supportive. Pt very stable and seems relaxed Tracheostomy capping trials initiated. Tolerating well. Family considering possibility of taking him home without the tracheostomy. Tracheostomy discontinued and family content. Pt maintaining excellent O 2 saturations on room air in the high nineties. Pt's status changed to SNF. VSS. No new issues. Pt maintaining O2 saturations on room air very well and hence diagnosis of Chronic respiratory failure with hypoxia is discontinued. Pt now has significant deficits in cognition but no confusion or altered mental status and hence diagnosis of Chronic Encephalopathy is discontinued. VSS. Tolerating PO feeding 50% and monitored. Started on Mylanta prn for gaseous discomfort. better. VSS. Staff mentioned about some instances when pt seems to be disoriented. I examined the pt in presence of his family and he was calm and appropriate in simple responses. Will monitor for now. Pt seen with family around. cheerful.VSS Plan: Full support medical/nutritional and emotional towards maintaining some quality of life
[2025-08-01] VITALS (8 sets, daily range): BP systolic 115–134; BP diastolic 60–72; PULSE 49–110; RESP 16–21; TEMP 36.4–36.8; O2SAT 94–98
[2025-08-01] MEDS: INSULIN REGULAR, HUMAN 100 UNIT/ML VIAL SC ×2 (06:03→17:01)
[2025-08-01] MEDS: LEVOTHYROXINE SODIUM 125 MCG TABLET 200 MCG PO (06:03)
[2025-08-01] MEDS: APIXABAN 5 MG TABLET PO ×2 (09:11→20:49)
[2025-08-01] MEDS: CHOLECALCIFEROL (VITAMIN D3) 25 MCG TABLET PO (09:11)
[2025-08-01] MEDS: CLOPIDOGREL BISULFATE 75 MG TABLET PO (09:11)
[2025-08-01] MEDS: SENNOSIDES 8.6 MG TABLET PO ×2 (09:12→20:50)
[2025-08-01] MEDS: LACTULOSE 10 GM/15 ML SOLUTION 20 GM PO ×2 (09:12→20:50)
[2025-08-01] MEDS: DEX/HYPRO/GLY ARTIFICAL TEARS 225 DROP/15 ML BTL BOTH EYES ×2 (09:12→20:50)
[2025-08-01] MEDS: INSULIN GLARGINE 100 UNIT/ML INSULN.PEN 12 UNIT SC (17:00)
[2025-08-01] MEDS: ATORVASTATIN 40 MG TABLET PO (20:50)
[2025-08-01] MEDS: MELATONIN 3 MG TABLET PO (20:50)
[2025-08-02] MEDS: LEVOTHYROXINE SODIUM 125 MCG TABLET 200 MCG PO (05:05)
[2025-08-02] MEDS: INSULIN REGULAR, HUMAN 100 UNIT/ML VIAL SC ×2 (05:33→17:32)
[2025-08-02 06:00] VITALS: BP 113/66; PULSE 54; RESP 18; TEMP 36.8; O2SAT 99
[2025-08-02 08:05] VITALS: PULSE 78; RESP 18; O2SAT 95
[2025-08-02 08:23] VITALS: BP 132/73; PULSE 62
[2025-08-02] MEDS: AMIODARONE 200 MG TABLET 400 MG PO (08:23)
[2025-08-02] MEDS: CHOLECALCIFEROL (VITAMIN D3) 25 MCG TABLET PO (08:24)
[2025-08-02] MEDS: CLOPIDOGREL BISULFATE 75 MG TABLET PO (08:24)
[2025-08-02] MEDS: DEX/HYPRO/GLY ARTIFICAL TEARS 225 DROP/15 ML BTL BOTH EYES ×2 (08:24→20:46)
[2025-08-02] MEDS: APIXABAN 5 MG TABLET PO ×2 (08:24→20:46)
[2025-08-02] MEDS: LACTULOSE 10 GM/15 ML SOLUTION 20 GM PO ×2 (08:25→20:46)
[2025-08-02] MEDS: SENNOSIDES 8.6 MG TABLET PO ×2 (08:26→20:45)
[2025-08-02 12:00] VITALS: BP 122/68; PULSE 69; RESP 18; TEMP 36; O2SAT 95
[2025-08-02] MEDS: INSULIN GLARGINE 100 UNIT/ML INSULN.PEN 12 UNIT SC (17:31)
[2025-08-02] MEDS: MELATONIN 3 MG TABLET PO (20:46)
[2025-08-02] MEDS: ATORVASTATIN 40 MG TABLET PO (20:46)
[2025-08-03] VITALS: BP 124/76; PULSE 62; RESP 18; TEMP 36.8
[2025-08-03] MEDS: LEVOTHYROXINE SODIUM 125 MCG TABLET 200 MCG PO (05:05)
[2025-08-03] MEDS: INSULIN REGULAR, HUMAN 100 UNIT/ML VIAL SC ×2 (05:33→17:39)
[2025-08-03 05:49] VITALS: BP 111/72; PULSE 55; RESP 18; TEMP 36.7; O2SAT 99
[2025-08-03 08:29] VITALS: BP 126/73; PULSE 60
[2025-08-03] MEDS: AMIODARONE 200 MG TABLET 400 MG PO (08:29)
[2025-08-03] MEDS: SENNOSIDES 8.6 MG TABLET PO ×2 (08:30→20:38)
[2025-08-03] MEDS: CHOLECALCIFEROL (VITAMIN D3) 25 MCG TABLET PO (08:30)
[2025-08-03] MEDS: DEX/HYPRO/GLY ARTIFICAL TEARS 225 DROP/15 ML BTL BOTH EYES ×2 (08:30→20:38)
[2025-08-03] MEDS: LACTULOSE 10 GM/15 ML SOLUTION 20 GM PO ×2 (08:30→20:37)
[2025-08-03] MEDS: APIXABAN 5 MG TABLET PO ×2 (08:30→20:36)
[2025-08-03] MEDS: CLOPIDOGREL BISULFATE 75 MG TABLET PO (08:30)
[2025-08-03 12:00] VITALS: BP 109/64; PULSE 64; RESP 20; TEMP 36.7
[2025-08-03] MEDS: INSULIN GLARGINE 100 UNIT/ML INSULN.PEN 12 UNIT SC (17:38)
[2025-08-03 18:00] VITALS: BP 131/77; PULSE 63; RESP 21; TEMP 36.4; O2SAT 98
[2025-08-03] MEDS: ACETAMINOPHEN 325 MG TABLET 650 MG PO (19:28)
[2025-08-03] MEDS: ATORVASTATIN 40 MG TABLET PO (20:36)
[2025-08-03] MEDS: MELATONIN 3 MG TABLET PO (20:37)
[2025-08-04] VITALS (7 sets, daily range): BP systolic 111–144; BP diastolic 65–84; PULSE 46–69; RESP 16–19; TEMP 36.7–36.8; O2SAT 94–99
[2025-08-04] MEDS: INSULIN REGULAR, HUMAN 100 UNIT/ML VIAL SC ×2 (05:42→17:15)
[2025-08-04] MEDS: LEVOTHYROXINE SODIUM 125 MCG TABLET 200 MCG PO (05:46)
--- NOTE | 2025-08-04 07:38 | PD.SAPROG ---
Progress Note - SubAcute DIAGNOSIS (1) Acute arterial ischemic stroke, vertebrobasilar, brainstem: Status: Chronic Qualifiers: Laterality: left Qualified Code(s): I63.212 - Cerebral infarction due to unspecified occlusion or stenosis of left vertebral artery; I63.22 - Cerebral infarction due to unspecified occlusion or stenosis of basilar artery (2) Seizures, generalized convulsive: Status: Chronic (3) Altered glucose metabolism due to diabetes: Status: Chronic (4) Decubital ulcer: Status: Chronic (5) G tube feedings: Status: Chronic SUBJECTIVE Fever:: none Shortness of Breath:: none Pain:: none OBJECTIVE Most recent vital signs: Last Vital Signs Temp 98.0 F 08/04/25 05:32 Pulse 53 L 08/04/25 05:32 Resp 16 08/04/25 05:32 BP 114/73 08/04/25 05:32 Pulse Ox 99 08/04/25 05:32 O2 Del Method Room Air 08/03/25 05:49 Speech:: mouths words (sometimes) Answers questions:: sometimes (mostly by gestures) Respiratory:: lungs clear Cardiovascular: RRR Abdomen: soft Feeding per:: G tube ASSESSMENT & PLAN Assessment: Pt seems to be fairly stable with all above diagnosis and with limited /guarded prognosis for recovery to independent living and needs all support. Family supportive Denies any pain. VSS 11-11-24 Met with family in pt's room and updated them as well as answered all questions. Reiterated limited prognosis for independent living. Neurology input on prognostic outlook and medication review followed. Repeat CT head ordered by neurologist was done and results discussed with the Neurologist who confirmed stable changes and recommended no change on medicine. This was updated with the family the No new issues , Talked with family at bedside and updated them. VSS. Started on Melatonin q hs 3 mgs prn to facilitate sleep. Pt had fever due to E. faecalis UTI and started on Vancomycin 1gm IVPB q 12 hourly on 12-28-24 Responded well and cleared. Family very actitvely participating in patient care Some constipation concerns, was given Lactulose . Being monitored but pt did not respond to treatment and was sent to the ER were he finally did poop and stabilized and returned to the [facility] at night doing well on the above treatment protocol. Now requiring Lactulose and occasional suppository for Constipation. Tolerating feeding. VSS. No new issues. Bowel movements somewhat improved on increasing Lactulose . Stable status. Pt not to be left on Passe' [place] speaking valve unattended since he cannote operate it himself. No new issues. looks comfortable. Family mostly visits daily and very supportive. Pt very stable and seems relaxed Tracheostomy capping trials initiated. Tolerating well. Family considering possibility of taking him home without the tracheostomy. Tracheostomy discontinued and family content. Pt maintaining excellent O 2 saturations on room air in the high nineties. Pt's status changed to SNF. VSS. No new issues. Pt maintaining O2 saturations on room air very well and hence diagnosis of Chronic respiratory failure with hypoxia is discontinued. Pt now has significant deficits in cognition but no confusion or altered mental status and hence diagnosis of Chronic Encephalopathy is discontinued. VSS. Tolerating PO feeding 50% and monitored. Started on Mylanta prn for gaseous discomfort. better. VSS. Staff mentioned about some instances when pt seems to be disoriented. I examined the pt in presence of his family and he was calm and appropriate in simple responses. Will monitor for now. Pt seen with family around. cheerful.VSS Plan: Full support medical/nutritional and emotional towards maintaining some quality of life
[2025-08-04] MEDS: APIXABAN 5 MG TABLET PO ×2 (08:31→20:56)
[2025-08-04] MEDS: CLOPIDOGREL BISULFATE 75 MG TABLET PO (08:33)
[2025-08-04] MEDS: LACTULOSE 10 GM/15 ML SOLUTION 20 GM PO ×2 (08:33→20:56)
[2025-08-04] MEDS: DEX/HYPRO/GLY ARTIFICAL TEARS 225 DROP/15 ML BTL BOTH EYES ×2 (08:33→20:56)
[2025-08-04] MEDS: CHOLECALCIFEROL (VITAMIN D3) 25 MCG TABLET PO (08:33)
[2025-08-04] MEDS: SENNOSIDES 8.6 MG TABLET PO ×2 (08:34→20:56)
[2025-08-04] MEDS: INSULIN GLARGINE 100 UNIT/ML INSULN.PEN 12 UNIT SC (17:15)
--- NOTE | 2025-08-04 17:52 | PC.NURSE ---
Resident doesn't meet the criteria to be in subacute care, he doesn't have any gtube nor trach. Team discussed with resident's family about discharging resident to home of for SNF placement.
[2025-08-04] MEDS: ATORVASTATIN 40 MG TABLET PO (20:56)
[2025-08-04] MEDS: MELATONIN 3 MG TABLET PO (20:56)
[2025-08-05] MEDS: LEVOTHYROXINE SODIUM 125 MCG TABLET 200 MCG PO (05:20)
[2025-08-05 06:00] VITALS: BP 126/72; PULSE 50; RESP 20; TEMP 36.5; O2SAT 96
[2025-08-05 06:13] VITALS: PULSE 69; RESP 18; O2SAT 98
[2025-08-05 09:08] VITALS: BP 111/67; PULSE 55
[2025-08-05] MEDS: APIXABAN 5 MG TABLET PO ×2 (09:08→20:52)
[2025-08-05] MEDS: LACTULOSE 10 GM/15 ML SOLUTION 20 GM PO ×2 (09:09→20:53)
[2025-08-05] MEDS: SENNOSIDES 8.6 MG TABLET PO ×2 (09:09→20:52)
[2025-08-05] MEDS: CHOLECALCIFEROL (VITAMIN D3) 25 MCG TABLET PO (09:09)
[2025-08-05] MEDS: DEX/HYPRO/GLY ARTIFICAL TEARS 225 DROP/15 ML BTL BOTH EYES ×2 (09:09→20:53)
[2025-08-05] MEDS: CLOPIDOGREL BISULFATE 75 MG TABLET PO (09:09)
[2025-08-05 11:51] VITALS: BP 110/66; PULSE 54; RESP 18; TEMP 36.7
[2025-08-05] MEDS: INSULIN GLARGINE 100 UNIT/ML INSULN.PEN 12 UNIT SC (17:28)
[2025-08-05] MEDS: INSULIN REGULAR, HUMAN 100 UNIT/ML VIAL SC (17:29)
[2025-08-05 17:47] VITALS: BP 130/76; PULSE 63; RESP 18; TEMP 36.8; O2SAT 97
[2025-08-05 19:26] VITALS: PULSE 58; RESP 18; O2SAT 96
[2025-08-05] MEDS: ATORVASTATIN 40 MG TABLET PO (20:52)
[2025-08-05] MEDS: MELATONIN 3 MG TABLET PO (20:53)
[2025-08-06] VITALS: BP 100/70; PULSE 51; RESP 18; TEMP 36.6
[2025-08-06] MEDS: LEVOTHYROXINE SODIUM 125 MCG TABLET 200 MCG PO (05:17)
[2025-08-06 06:00] VITALS: BP 116/67; PULSE 56; RESP 18; TEMP 36.5
--- NOTE | 2025-08-06 07:41 | PC.NURSE ---
08/04/2025 at about 1445, had a interdisciplinary team discussion with Mr. & Mrs. Mcneil and son. Team consisted of Unit Sample Collector, MD, manager exchange, Charge Nurse. Team discussed possibly taking Mr. Mcneil home if no correction would be found for him. Mrs. 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 Mrs. Mcneil would receive support services, family training, and medical equipment if Mr. Mcneil would be sent home. Mrs. Mcneil and son was agreeable to the plan.
[2025-08-06 08:45] VITALS: BP 131/82; PULSE 55
[2025-08-06] MEDS: DEX/HYPRO/GLY ARTIFICAL TEARS 225 DROP/15 ML BTL BOTH EYES ×2 (08:46→21:01)
[2025-08-06] MEDS: CHOLECALCIFEROL (VITAMIN D3) 25 MCG TABLET PO (08:46)
[2025-08-06] MEDS: LACTULOSE 10 GM/15 ML SOLUTION 20 GM PO ×2 (08:46→21:01)
[2025-08-06] MEDS: CLOPIDOGREL BISULFATE 75 MG TABLET PO (08:46)
[2025-08-06] MEDS: APIXABAN 5 MG TABLET PO ×2 (08:46→21:01)
[2025-08-06] MEDS: SENNOSIDES 8.6 MG TABLET PO ×2 (08:47→21:00)
[2025-08-06 12:00] VITALS: BP 114/69; PULSE 54; RESP 16; TEMP 36.8
--- NOTE | 2025-08-06 12:49 | PC.SS ---
Resident remains on room air and continues to eat by mouth. Resident is able to make needs known with clear speech, residential sales representative will continue to make all medical decisions for resident. Resident will remain in current care until appropriate intermediate bed is made available at lower level of care.
[2025-08-06] MEDS: ACETAMINOPHEN 325 MG TABLET 650 MG PO (14:00)
[2025-08-06 14:23] VITALS: PULSE 64; RESP 18; O2SAT 98
--- NOTE | 2025-08-06 15:04 | PD.SAPROG ---
Progress Note - SubAcute DIAGNOSIS (1) Acute arterial ischemic stroke, vertebrobasilar, brainstem: Status: Chronic Qualifiers: Laterality: left Qualified Code(s): I63.212 - Cerebral infarction due to unspecified occlusion or stenosis of left vertebral artery; I63.22 - Cerebral infarction due to unspecified occlusion or stenosis of basilar artery (2) Seizures, generalized convulsive: Status: Chronic (3) Altered glucose metabolism due to diabetes: Status: Chronic (4) Decubital ulcer: Status: Chronic (5) G tube feedings: Status: Chronic SUBJECTIVE Fever:: none Shortness of Breath:: none Pain:: none OBJECTIVE Most recent vital signs: Last Vital Signs Temp 98.8 F 08/06/25 11:39 Pulse 54 L 08/06/25 11:39 Resp 16 08/06/25 11:39 BP 114/69 08/06/25 11:39 Pulse Ox 96 08/05/25 19:26 O2 Del Method Room Air 08/05/25 17:47 Speech:: mouths words (sometimes) Answers questions:: sometimes (mostly by gestures) Respiratory:: lungs clear Cardiovascular: RRR Abdomen: soft Feeding per:: G tube ASSESSMENT & PLAN Assessment: Pt seems to be fairly stable with all above diagnosis and with limited /guarded prognosis for recovery to independent living and needs all support. Family supportive Denies any pain. VSS 11-11-24 Met with family in pt's room and updated them as well as answered all questions. Reiterated limited prognosis for independent living. Neurology input on prognostic outlook and medication review followed. Repeat CT head ordered by neurologist was done and results discussed with the Neurologist who confirmed stable changes and recommended no change on medicine. This was updated with the family the No new issues , Talked with family at bedside and updated them. VSS. Started on Melatonin q hs 3 mgs prn to facilitate sleep. Pt had fever due to E. faecalis UTI and started on Vancomycin 1gm IVPB q 12 hourly on 12-28-24 Responded well and cleared. Family very actitvely participating in patient care Some constipation concerns, was given Lactulose . Being monitored but pt did not respond to treatment and was sent to the ER were he finally did poop and stabilized and returned to the [facility] at night doing well on the above treatment protocol. Now requiring Lactulose and occasional suppository for Constipation. Tolerating feeding. VSS. No new issues. Bowel movements somewhat improved on increasing Lactulose . Stable status. Pt not to be left on Passe' [place] speaking valve unattended since he cannote operate it himself. No new issues. looks comfortable. Family mostly visits daily and very supportive. Pt very stable and seems relaxed Tracheostomy capping trials initiated. Tolerating well. Family considering possibility of taking him home without the tracheostomy. Tracheostomy discontinued and family content. Pt maintaining excellent O 2 saturations on room air in the high nineties. Pt's status changed to SNF. VSS. No new issues. Pt maintaining O2 saturations on room air very well and hence diagnosis of Chronic respiratory failure with hypoxia is discontinued. Pt now has significant deficits in cognition but no confusion or altered mental status and hence diagnosis of Chronic Encephalopathy is discontinued. VSS. Tolerating PO feeding 50% and monitored. Started on Mylanta prn for gaseous discomfort. better. VSS. Staff mentioned about some instances when pt seems to be disoriented. I examined the pt in presence of his family and he was calm and appropriate in simple responses. Will monitor for now. Pt seen with family around. cheerful.VSS Revisited with family regards home discharge or to SNF Plan: Full support medical/nutritional and emotional towards maintaining some quality of life
[2025-08-06] MEDS: INSULIN REGULAR, HUMAN 100 UNIT/ML VIAL SC (17:26)
[2025-08-06] MEDS: INSULIN GLARGINE 100 UNIT/ML INSULN.PEN 12 UNIT SC (17:27)
[2025-08-06 17:35] VITALS: BP 143/77; PULSE 55; RESP 19; TEMP 36.8; O2SAT 96
[2025-08-06] MEDS: MELATONIN 3 MG TABLET PO (21:01)
[2025-08-06] MEDS: ATORVASTATIN 40 MG TABLET PO (21:01)
[2025-08-07] VITALS: BP 117/71; PULSE 63; RESP 20; TEMP 36.9
[2025-08-07] MEDS: LEVOTHYROXINE SODIUM 125 MCG TABLET 200 MCG PO (05:07)
[2025-08-07] MEDS: INSULIN REGULAR, HUMAN 100 UNIT/ML VIAL SC ×2 (05:07→17:31)
[2025-08-07 06:00] VITALS: BP 124/73; PULSE 50; RESP 20; TEMP 36.7; O2SAT 95
[2025-08-07 07:35] VITALS: PULSE 66; RESP 18; O2SAT 96
[2025-08-07 08:23] VITALS: BP 114/72; PULSE 64
[2025-08-07] MEDS: AMIODARONE 200 MG TABLET 400 MG PO (08:23)
[2025-08-07] MEDS: APIXABAN 5 MG TABLET PO ×2 (08:23→20:51)
[2025-08-07] MEDS: CHOLECALCIFEROL (VITAMIN D3) 25 MCG TABLET PO (08:23)
[2025-08-07] MEDS: SENNOSIDES 8.6 MG TABLET PO ×2 (08:24→20:48)
[2025-08-07] MEDS: DEX/HYPRO/GLY ARTIFICAL TEARS 225 DROP/15 ML BTL BOTH EYES ×2 (08:24→20:50)
[2025-08-07] MEDS: CLOPIDOGREL BISULFATE 75 MG TABLET PO (08:24)
[2025-08-07] MEDS: LACTULOSE 10 GM/15 ML SOLUTION 20 GM PO ×2 (08:24→20:50)
[2025-08-07 12:00] VITALS: BP 105/66; PULSE 55; RESP 18; TEMP 36.7
[2025-08-07] MEDS: INSULIN GLARGINE 100 UNIT/ML INSULN.PEN 12 UNIT SC (17:31)
[2025-08-07 17:39] VITALS: BP 138/80; PULSE 65; RESP 20; TEMP 36.3
[2025-08-07] MEDS: ATORVASTATIN 40 MG TABLET PO (20:50)
[2025-08-07] MEDS: MELATONIN 3 MG TABLET PO (20:50)
[2025-08-08] VITALS: BP 134/71; PULSE 66; RESP 18; TEMP 36.6
[2025-08-08] MEDS: LEVOTHYROXINE SODIUM 125 MCG TABLET 200 MCG PO (05:12)
[2025-08-08] MEDS: INSULIN REGULAR, HUMAN 100 UNIT/ML VIAL SC ×2 (05:13→17:13)
[2025-08-08 05:50] VITALS: BP 111/71; PULSE 57; RESP 18; TEMP 36.5; O2SAT 99
[2025-08-08 08:16] VITALS: BP 122/72; PULSE 60
[2025-08-08] MEDS: AMIODARONE 200 MG TABLET 400 MG PO (08:16)
[2025-08-08] MEDS: APIXABAN 5 MG TABLET PO ×2 (08:16→20:10)
[2025-08-08] MEDS: CLOPIDOGREL BISULFATE 75 MG TABLET PO (08:18)
[2025-08-08] MEDS: DEX/HYPRO/GLY ARTIFICAL TEARS 225 DROP/15 ML BTL BOTH EYES ×2 (08:18→20:10)
[2025-08-08] MEDS: CHOLECALCIFEROL (VITAMIN D3) 25 MCG TABLET PO (08:18)
[2025-08-08] MEDS: LACTULOSE 10 GM/15 ML SOLUTION 20 GM PO ×2 (08:18→20:10)
[2025-08-08] MEDS: SENNOSIDES 8.6 MG TABLET PO ×2 (08:19→20:11)
[2025-08-08 10:11] LABS: Basophils # (Auto) 0.1 Thou/mm3 (0.0-0.2); Basophils % (Auto) 2 % (0-2.5); Eosinophils # (Auto) 0.2 Thou/mm3 (0.0-0.5); Eosinophils % (Auto) 4 % (0-10); Hematocrit 35.4 % (41.0-53.0); Hemoglobin 11.2 g/dL (13.5-16.0); Immature Granulocytes Auto 0.02 Thou/mm3 (0.00-0.00); Lymphocytes # (Auto) 1.6 Thou/mm3 (1.0-4.8); Lymphocytes % (Auto) 31 % (10-50); Mean Corpuscular HGB Conc 31.6 g/dl (31.0-37.0); Mean Corpuscular Hemoglobin 30.1 pg (25.0-35.0); Mean Corpuscular Volume 95 fL (80-100); Monocytes # (Auto) 0.5 Thou/mm3 (0.0-0.8); Monocytes % (Auto) 9 % (0-12); Neutrophils # (Auto) 2.9 Thou/mm3 (1.8-7.7); Neutrophils % (Auto) 54 % (37-80); Nucleated Red Blood Cell # 0.00 Thou/mm3 (0.00-0.00); Nucleated Red Blood Cell % 0 /100 WBC (0); Platelet Count 241 Thou/mm3 (140-440); RDW Standard Deviation 46.5 fL (35.1-43.9); Red Blood Count 3.72 Miln/mm3 (4.50-5.90); White Blood Count 5.2 Thou/mm3 (3.8-10.6)
[2025-08-08 10:21] LABS: Albumin, Serum 3.9 gm/dL (3.4-4.8); Anion Gap 10 (7-16); BUN/Creatinine Ratio 8 Ratio (12-20); Blood Urea Nitrogen 8 mg/dL (9-23); Calcium 8.8 mg/dL (8.3-10.6); Calcium (Corrected) 8.9 mg/dL (8.5-10.1); Carbon Dioxide 28.5 mMol/L (20.0-31.0); Chloride 107 mMol/L (98-107); Creatinine (Component) 1.0 mg/dL (0.6-1.3); Estimated Creatinine Clearance 82.1 mL/min (>60); Glucose 195 mg/dL (74-106); Glucose,Fasting 195 mg/dL (74-106); Osmolality,Calculated 292 (275-295); Phosphorous 3.9 mg/dL (2.4-5.1); Potassium 3.9 mMol/L (3.4-5.1); Sodium 145 mMol/L (136-145); Thyroid Stimulating Hormone 7.96 uIU/mL (0.55-4.78); eGFR > 60 See Note
[2025-08-08 12:00] VITALS: BP 116/64; PULSE 64; RESP 19; TEMP 36.8
--- NOTE | 2025-08-08 13:58 | PC.NURSE ---
Reviewed lab results with specifically TSH. New order to increase dosage from 200mcg to 225mcg PO daily. Carried out new order.
[2025-08-08] MEDS: INSULIN GLARGINE 100 UNIT/ML INSULN.PEN 12 UNIT SC (17:13)
[2025-08-08 18:00] VITALS: BP 113/64; PULSE 54; RESP 17; TEMP 36.7; O2SAT 93
[2025-08-08] MEDS: ATORVASTATIN 40 MG TABLET PO (20:10)
[2025-08-08] MEDS: MELATONIN 3 MG TABLET PO (20:11)
[2025-08-09] VITALS (7 sets, daily range): BP systolic 114–148; BP diastolic 55–81; PULSE 52–66; RESP 16–20; TEMP 36.3–36.7; O2SAT 97–98
[2025-08-09] MEDS: LEVOTHYROXINE SODIUM 125 MCG TABLET 225 MCG PO (05:15)
[2025-08-09] MEDS: CHOLECALCIFEROL (VITAMIN D3) 25 MCG TABLET PO (08:27)
[2025-08-09] MEDS: LACTULOSE 10 GM/15 ML SOLUTION 20 GM PO ×2 (08:27→20:37)
[2025-08-09] MEDS: AMIODARONE 200 MG TABLET 400 MG PO (08:27)
[2025-08-09] MEDS: CLOPIDOGREL BISULFATE 75 MG TABLET PO (08:27)
[2025-08-09] MEDS: DEX/HYPRO/GLY ARTIFICAL TEARS 225 DROP/15 ML BTL BOTH EYES ×2 (08:27→20:37)
[2025-08-09] MEDS: APIXABAN 5 MG TABLET PO ×2 (08:27→20:37)
[2025-08-09] MEDS: SENNOSIDES 8.6 MG TABLET PO ×2 (08:27→20:39)
[2025-08-09] MEDS: INSULIN GLARGINE 100 UNIT/ML INSULN.PEN 12 UNIT SC (17:03)
[2025-08-09] MEDS: INSULIN REGULAR, HUMAN 100 UNIT/ML VIAL SC (17:04)
[2025-08-09] MEDS: ATORVASTATIN 40 MG TABLET PO (20:37)
[2025-08-09] MEDS: MELATONIN 3 MG TABLET PO (20:39)
[2025-08-10] VITALS (8 sets, daily range): BP systolic 106–130; BP diastolic 60–76; PULSE 47–71; RESP 18–21; TEMP 36.4–36.9; O2SAT 98–99
[2025-08-10] MEDS: LEVOTHYROXINE SODIUM 125 MCG TABLET 225 MCG PO (05:10)
[2025-08-10] MEDS: AMIODARONE 200 MG TABLET 400 MG PO (08:50)
[2025-08-10] MEDS: CLOPIDOGREL BISULFATE 75 MG TABLET PO (08:51)
[2025-08-10] MEDS: APIXABAN 5 MG TABLET PO ×2 (08:51→20:56)
[2025-08-10] MEDS: DEX/HYPRO/GLY ARTIFICAL TEARS 225 DROP/15 ML BTL BOTH EYES ×2 (08:53→20:56)
[2025-08-10] MEDS: LACTULOSE 10 GM/15 ML SOLUTION 20 GM PO ×2 (08:53→20:56)
[2025-08-10] MEDS: CHOLECALCIFEROL (VITAMIN D3) 25 MCG TABLET PO (08:53)
[2025-08-10] MEDS: SENNOSIDES 8.6 MG TABLET PO ×2 (08:54→20:56)
--- NOTE | 2025-08-10 10:26 | PC.NURSE ---
PASRR has been submitted, approved, and sent to [facility] for transfer
--- NOTE | 2025-08-10 16:00 | PC.NURSE ---
Consent completed for seasonal Influenza vaccine and order entered. Resident is pending transfer to [facility]; possibly tomorrow.
[2025-08-10] MEDS: INSULIN GLARGINE 100 UNIT/ML INSULN.PEN 12 UNIT SC (17:22)
[2025-08-10] MEDS: INSULIN REGULAR, HUMAN 100 UNIT/ML VIAL SC (17:23)
--- NOTE | 2025-08-10 18:34 | PC.NURSE ---
At 1740 resident received Influenza vaccine 0.5 ml to left deltiod. Vital signs within parameters 98.5, 61, 18, 126/76, Spo2 98% on room air. No c/o pain or discomfort. Family at bedside. Vital signs to be obtained Q4 hrs x 24 hrs per protocol.
[2025-08-10] MEDS: ATORVASTATIN 40 MG TABLET PO (20:56)
[2025-08-10] MEDS: MELATONIN 3 MG TABLET PO (20:56)
[2025-08-11] VITALS (8 sets, daily range): BP systolic 107–132; BP diastolic 63–76; PULSE 50–67; RESP 18–22; TEMP 36.3–36.7; O2SAT 94–99; BMI 22.4
[2025-08-11] MEDS: LEVOTHYROXINE SODIUM 125 MCG TABLET 225 MCG PO (05:04)
[2025-08-11] MEDS: INSULIN REGULAR, HUMAN 100 UNIT/ML VIAL SC ×2 (05:47→17:28)
--- NOTE | 2025-08-11 06:40 | PC.NURSE ---
ongoing monitoring for Flu Vaccine given to left deltoid. no adverse reaction noted at this time. will continue to monitor.
[2025-08-11] MEDS: LACTULOSE 10 GM/15 ML SOLUTION 20 GM PO ×2 (08:22→21:24)
[2025-08-11] MEDS: CLOPIDOGREL BISULFATE 75 MG TABLET PO (08:22)
[2025-08-11] MEDS: DEX/HYPRO/GLY ARTIFICAL TEARS 225 DROP/15 ML BTL BOTH EYES ×2 (08:22→21:24)
[2025-08-11] MEDS: APIXABAN 5 MG TABLET PO ×2 (08:22→21:24)
[2025-08-11] MEDS: CHOLECALCIFEROL (VITAMIN D3) 25 MCG TABLET PO (08:22)
[2025-08-11] MEDS: SENNOSIDES 8.6 MG TABLET PO ×2 (08:23→21:26)
--- NOTE | 2025-08-11 13:16 | PD.SAPROG ---
Progress Note - SubAcute DIAGNOSIS (1) Acute arterial ischemic stroke, vertebrobasilar, brainstem: Status: Chronic Qualifiers: Laterality: left Qualified Code(s): I63.212 - Cerebral infarction due to unspecified occlusion or stenosis of left vertebral artery; I63.22 - Cerebral infarction due to unspecified occlusion or stenosis of basilar artery (2) Seizures, generalized convulsive: Status: Chronic (3) Altered glucose metabolism due to diabetes: Status: Chronic (4) Decubital ulcer: Status: Chronic (5) G tube feedings: Status: Chronic SUBJECTIVE Fever:: none Shortness of Breath:: none Pain:: none OBJECTIVE Most recent vital signs: Last Vital Signs Temp 97.9 F 08/11/25 06:00 Pulse 56 L 08/11/25 08:22 Resp 18 08/11/25 06:00 BP 107/63 08/11/25 08:22 Pulse Ox 99 08/11/25 05:39 O2 Del Method Blow-by 08/11/25 05:39 Speech:: mouths words (sometimes) Answers questions:: sometimes (mostly by gestures) Respiratory:: lungs clear Cardiovascular: RRR Abdomen: soft Feeding per:: G tube ASSESSMENT & PLAN Assessment: Pt seems to be fairly stable with all above diagnosis and with limited /guarded prognosis for recovery to independent living and needs all support. Family supportive Denies any pain. VSS 11-11-24 Met with family in pt's room and updated them as well as answered all questions. Reiterated limited prognosis for independent living. Neurology input on prognostic outlook and medication review followed. Repeat CT head ordered by neurologist was done and results discussed with the Neurologist who confirmed stable changes and recommended no change on medicine. This was updated with the family the No new issues , Talked with family at bedside and updated them. VSS. Started on Melatonin q hs 3 mgs prn to facilitate sleep. Pt had fever due to E. faecalis UTI and started on Vancomycin 1gm IVPB q 12 hourly on 12-28-24 Responded well and cleared. Family very actitvely participating in patient care Some constipation concerns, was given Lactulose . Being monitored but pt did not respond to treatment and was sent to the ER were he finally did poop and stabilized and returned to the [facility] at night doing well on the above treatment protocol. Now requiring Lactulose and occasional suppository for Constipation. Tolerating feeding. VSS. No new issues. Bowel movements somewhat improved on increasing Lactulose . Stable status. Pt not to be left on Passe' Angie speaking valve unattended since he cannote operate it himself. No new issues. looks comfortable. Family mostly visits daily and very supportive. Pt very stable and seems relaxed Tracheostomy capping trials initiated. Tolerating well. Family considering possibility of taking him home without the tracheostomy. Tracheostomy discontinued and family content. Pt maintaining excellent O 2 saturations on room air in the high nineties. Pt's status changed to SNF. VSS. No new issues. Pt maintaining O2 saturations on room air very well and hence diagnosis of Chronic respiratory failure with hypoxia is discontinued. Pt now has significant deficits in cognition but no confusion or altered mental status and hence diagnosis of Chronic Encephalopathy is discontinued. VSS. Tolerating PO feeding 50% and monitored. Started on Mylanta prn for gaseous discomfort. better. VSS. Staff mentioned about some instances when pt seems to be disoriented. I examined the pt in presence of his family and he was calm and appropriate in simple responses. Will monitor for now. Pt seen with family around. cheerful.VSS Revisited with family regards home discharge or to SNF which has been now arranged to a local SNF [facility] with ongoing treatment Plan: Full support medical/nutritional and emotional towards maintaining some quality of life
[2025-08-11] MEDS: INSULIN GLARGINE 100 UNIT/ML INSULN.PEN 12 UNIT SC (17:26)
[2025-08-11] MEDS: ATORVASTATIN 40 MG TABLET PO (21:24)
[2025-08-11] MEDS: MELATONIN 3 MG TABLET PO (21:25)
[2025-08-11] MEDS: ACETAMINOPHEN 325 MG TABLET 650 MG PO (21:28)
[2025-08-12] VITALS: BP 131/66; PULSE 56; RESP 18; TEMP 36.4
[2025-08-12] MEDS: LEVOTHYROXINE SODIUM 125 MCG TABLET 225 MCG PO (05:48)
[2025-08-12] MEDS: INSULIN REGULAR, HUMAN 100 UNIT/ML VIAL SC ×2 (05:49→17:28)
[2025-08-12 06:00] VITALS: BP 117/69; PULSE 50; RESP 17; TEMP 36.6; O2SAT 98
[2025-08-12 08:32] VITALS: BP 109/66; PULSE 60
[2025-08-12] MEDS: AMIODARONE 200 MG TABLET 400 MG PO (08:32)
[2025-08-12] MEDS: DEX/HYPRO/GLY ARTIFICAL TEARS 225 DROP/15 ML BTL BOTH EYES ×2 (08:33→21:30)
[2025-08-12] MEDS: CHOLECALCIFEROL (VITAMIN D3) 25 MCG TABLET PO (08:33)
[2025-08-12] MEDS: APIXABAN 5 MG TABLET PO ×2 (08:33→21:30)
[2025-08-12] MEDS: CLOPIDOGREL BISULFATE 75 MG TABLET PO (08:33)
[2025-08-12] MEDS: LACTULOSE 10 GM/15 ML SOLUTION 20 GM PO ×2 (08:34→21:30)
[2025-08-12] MEDS: SENNOSIDES 8.6 MG TABLET PO ×2 (08:35→21:31)
[2025-08-12 12:00] VITALS: BP 118/74; PULSE 50; RESP 18; TEMP 36.1
[2025-08-12 16:45] VITALS: PULSE 64; RESP 18; O2SAT 98
[2025-08-12] MEDS: INSULIN GLARGINE 100 UNIT/ML INSULN.PEN 12 UNIT SC (17:27)
[2025-08-12] MEDS: ACETAMINOPHEN 325 MG TABLET 650 MG PO (17:30)
[2025-08-12 17:54] VITALS: BP 124/74; PULSE 65; RESP 21; TEMP 36.7; O2SAT 97
[2025-08-12] MEDS: MELATONIN 3 MG TABLET PO (21:30)
[2025-08-12] MEDS: ATORVASTATIN 40 MG TABLET PO (21:30)
[2025-08-13] VITALS: BP 113/64; PULSE 59; RESP 19; TEMP 36.6
[2025-08-13] MEDS: INSULIN REGULAR, HUMAN 100 UNIT/ML VIAL SC (05:42)
[2025-08-13] MEDS: LEVOTHYROXINE SODIUM 125 MCG TABLET 225 MCG PO (05:43)
[2025-08-13 06:00] VITALS: BP 123/61; PULSE 52; RESP 18; TEMP 36.6; O2SAT 99
[2025-08-13 08:29] VITALS: BP 115/69; PULSE 56
[2025-08-13] MEDS: CHOLECALCIFEROL (VITAMIN D3) 25 MCG TABLET PO (08:30)
[2025-08-13] MEDS: APIXABAN 5 MG TABLET PO (08:30)
[2025-08-13] MEDS: CLOPIDOGREL BISULFATE 75 MG TABLET PO (08:31)
[2025-08-13] MEDS: LACTULOSE 10 GM/15 ML SOLUTION 20 GM PO (08:31)
[2025-08-13] MEDS: DEX/HYPRO/GLY ARTIFICAL TEARS 225 DROP/15 ML BTL BOTH EYES (08:31)
[2025-08-13] MEDS: SENNOSIDES 8.6 MG TABLET PO (08:31)
--- NOTE | 2025-08-13 11:39 | PC.NURSE ---
Received order to discharge resident to [facility] this afternoon. this policy writer sales called report to new facility and report given to Yonny nurse at [facility] transition. Doctor and family aware of transfer.
[2025-08-13 12:00] VITALS: BP 115/74; PULSE 60; RESP 18; TEMP 36.8
--- NOTE | 2025-08-13 14:47 | PC.NURSE ---
Resident was discharged to [facility] via [facility] transportation . Alert and verbally responsive, in stable condition. respiration even and unlabored. Denies any pain or discomfort. V/S taken as follows: 116/70, 71, 18, 98.3, O2 sat 97% at RA. Resident's and son were present during discharged.
--- NOTE | 2025-08-17 10:53 | PC.SS ---
Discharged to lower level of care on 08/13/25 at 1442. Allbelongings went with the family/ resident.
--- NOTE | 2025-08-17 14:05 | ESDS_ITS ---
RE: ABRAM CORONA : 1965 DATE OF ADMISSION: 05/12/2025 DATE OF DISCHARGE: 08/13/2025 DATE OF ADMISSION: 10/24/2024 DATE OF DISCHARGE: 08/13/2025 ADMITTING DIAGNOSES: Acute arterial ischemic stroke, vertebrobasilar, brain stem; generalized seizures; chronic respiratory failure; encephalopathy; decubitus ulcer; gastrostomy tube feedings; tracheostomy tube to blow by for protecting airways. DISCHARGE DIAGNOSES: Acute arterial ischemic stroke, vertebrobasilar, brain stem; generalized seizures; chronic respiratory failure; encephalopathy; decubitus ulcer; tracheostomy tube was discontinued; feeding gastrostomy tube was discontinued. The patient was beginning to respond appropriately to simple commands was participating in activities. HOSPITAL COURSE AND RELEVANT DATA: During the course of the patient's stay at the [facility] with the above stated diagnosis on admission, the patient remained fairly stable throughout the course. Gradually the tracheostomy and the G-tube were discontinued, patient improved in his mentation enough to be able to communicate in simple issues, able to answer simple questions, still fully supported since had significant neurological deficit both in mentation and physically incapacitated. His status was changed to [facility] facility in the last year and finally on 08/13/2025, patient was placed in a regional [facility] with all the current orders as ongoing with list of his medications being forwarded to the admitting in-charge doctor for the facility. Condition at the time of discharge very stable and stable vital signs. No more decubitus ulcers and in general stable in health but still dependent for daily care. DT: 14:18:42 TT: 20:40:00 Ref: [id number] - TID: [id number]
== END 2025-08-13 14:47 | DRG 45 ==
PROVIDERS: Admitting Provider Specialist; Visit Provider Specialist
DX: I63.212 Cerebral infarction due to unspecified occlusion or stenosis of left vertebral artery (principal); R56.9 Unspecified convulsions; J96.10 Chronic respiratory failure, unspecified whether with hypoxia or hypercapnia; G93.40 Encephalopathy, unspecified; Z93.1 Gastrostomy status; E11.9 Type 2 diabetes mellitus without complications; I63.22 Cerebral infarction due to unspecified occlusion or stenosis of basilar artery; J96.11 Chronic respiratory failure with hypoxia; K59.00 Constipation, unspecified; B95.2 Enterococcus as the cause of diseases classified elsewhere; N39.0 Urinary tract infection, site not specified
CPT/HCPCS: 36415; 74230; 80061; 80069; 80076; 80177; 82947; 83036; 84443; 85025; 92610; 94640; 94762